=== PATIENT | male | born 1950 | race Caucasian/White ===

== ENCOUNTER 2018-05-13 10:22 | Outpatient (REF) | payer MEDICARE, BC, SELFPAY ==
[2018-05-13 13:56] LABS: ALT 33 U/L (12-78); AST 23 U/L (15-37); Alkaline Phosphatase 72 U/L (46-116); Anion Gap 11.9 mmol/L (3-11); BUN 20 mg/dL (7-18); Bilirubin, Total 0.8 mg/dL (0.2-1.0); CO2 24.1 mmol/L (21.0-32.0); Calcium 8.9 mg/dL (8.5-10.1); Chloride 105 mmol/L (98-107); Cholesterol 136 mg/dL (50-200); Glucose 113 mg/dL (70-100); HDL Cholesterol 38 mg/dL (40-60); LDL CHOLESTEROL 93 mg/dL (<100); Potassium 4.3 mmol/L (3.5-5.1); Sodium 141 mmol/L (136-145); Total Protein 6.8 g/dL (6.4-8.2); Triglyceride 64 mg/dL (30-150)
== END 2018-05-13 10:42 ==
LOC: NCHCN 10:22
PROVIDERS: PCP Nurse Practitioner; Visit Provider Nurse Practitioner
DX: E11.9 Type 2 diabetes mellitus without complications (principal); E78.5 Hyperlipidemia, unspecified
CPT/HCPCS: 80053; 80061; 83721

== ENCOUNTER 2018-11-10 13:26 | Outpatient (REF) | payer MEDICARE, BC, SELFPAY ==
[2018-11-10 14:43] LABS: Microalb ug/mg Crea 14.6 ug/mg Cr
[2018-11-12 09:38] LABS: PSA, Screening 0.2 ng/ml (0-4.5)
== END 2018-11-10 13:46 ==
LOC: NCHCN 13:26
PROVIDERS: PCP Nurse Practitioner; Visit Provider Nurse Practitioner
DX: Z12.5 Encounter for screening for malignant neoplasm of prostate (principal); E11.9 Type 2 diabetes mellitus without complications
CPT/HCPCS: 84153; 82043; 82570

== ENCOUNTER 2019-05-06 12:37 | Outpatient (REF) | payer MEDICARE, BC, SELFPAY ==
[2019-05-06 14:46] LABS: ALT 35 U/L (16-63); AST 18 U/L (15-37); Albumin 3.9 g/dL (3.4-5.0); Alkaline Phosphatase 84 U/L (46-116); Anion Gap 8.9 mmol/L (3-11); BUN 21 mg/dL (7-18); Bilirubin, Total 0.5 mg/dL (0.2-1.0); CO2 26.1 mmol/L (21.0-32.0); CREATININE 0.86 mg/dL (0.70-1.30); Calcium 8.6 mg/dL (8.5-10.1); Calculated LDL 90 mg/dL; Chloride 103 mmol/L (98-107); Cholesterol 143 mg/dL (50-200); Glucose 178 mg/dL (70-100); HDL Cholesterol 35 mg/dL (40-60); Potassium 4.1 mmol/L (3.5-5.1); Sodium 138 mmol/L (136-145); Total Protein 6.9 g/dL (6.4-8.2); Triglyceride 91 mg/dL (30-150)
== END 2019-05-06 12:57 ==
LOC: NCHCN 12:37
PROVIDERS: PCP Nurse Practitioner; Visit Provider Nurse Practitioner
DX: E11.9 Type 2 diabetes mellitus without complications (principal); E78.5 Hyperlipidemia, unspecified
CPT/HCPCS: 80053; 80061; 83036

== ENCOUNTER 2020-05-30 16:12 | Outpatient (REF) | payer MEDICARE, BC, SELFPAY ==
[2020-05-30 19:40] LABS: ALT 54 U/L (16-63); AST 24 U/L (15-37); Alkaline Phosphatase 69 U/L (46-116); Anion Gap 8.4 mmol/L (3-11); BUN 18 mg/dL (7-18); CO2 26.6 mmol/L (21.0-32.0); CREATININE 0.81 mg/dL (0.70-1.30); Calcium 8.7 mg/dL (8.5-10.1); Calculated LDL 101 mg/dL (<100); Chloride 103 mmol/L (98-107); Cholesterol 150 mg/dL (<200); Glucose 136 mg/dL (74-106); HDL Cholesterol 35 mg/dL (40-60); Potassium 4.1 mmol/L (3.5-5.1); Sodium 138 mmol/L (136-145); Total Protein 6.6 g/dL (6.4-8.2); Triglyceride 74 mg/dL (<150)
[2020-05-30 20:00] LABS: Hemoglobin A1C 7.9 % (<5.7)
== END 2020-05-30 16:32 ==
LOC: NCHCN 16:12
PROVIDERS: PCP Nurse Practitioner; Visit Provider Nurse Practitioner
DX: E11.9 Type 2 diabetes mellitus without complications (principal); E78.5 Hyperlipidemia, unspecified
CPT/HCPCS: 80053; 80061; 83036

== ENCOUNTER 2020-06-08 08:40 | Outpatient (REF) | payer MEDICARE, BC, SELFPAY ==
[2020-06-08 20:42] LABS: COMMENT (LAB VIEW ONLY) 151.85 mg/dL
== END 2020-06-08 09:00 ==
LOC: NCHCN 08:40
PROVIDERS: PCP Nurse Practitioner; Visit Provider Nurse Practitioner
DX: E11.9 Type 2 diabetes mellitus without complications (principal)
CPT/HCPCS: 82043; 82570

== ENCOUNTER → 2020-07-12 11:10 | Outpatient (BNVA) | payer MEDICARE, BC, SELFPAY | PROVIDERS: PCP Nurse Practitioner; Referring Provider Nurse Practitioner; Visit Provider Nurse Practitioner Gerontology | DX: N52.9 Male erectile dysfunction, unspecified (principal); E11.9 Type 2 diabetes mellitus without complications; Z79.4 Long term (current) use of insulin | CPT/HCPCS: 99204 ==

== ENCOUNTER → 2020-09-26 11:01 | Outpatient (BNVA) | payer MEDICARE, BC, SELFPAY | PROVIDERS: PCP Nurse Practitioner; Referring Provider Nurse Practitioner; Visit Provider Nurse Practitioner Gerontology | DX: N52.9 Male erectile dysfunction, unspecified (principal) | CPT/HCPCS: 99213 ==

== ENCOUNTER 2020-12-06 10:44 | Outpatient (REF) | payer MEDICARE, BC, SELFPAY ==
[2020-12-06 16:02] LABS: Anion Gap 11.7 mmol/L (3-11); BUN 19 mg/dL (7-18); CO2 27.3 mmol/L (21.0-32.0); CREATININE 0.9 mg/dL (0.70-1.30); Calcium 9.2 mg/dL (8.5-10.1); Chloride 103 mmol/L (98-107); Glucose 137 mg/dL (74-106); Potassium 4.6 mmol/L (3.5-5.1); Sodium 142 mmol/L (136-145)
[2020-12-06 22:00] LABS: PSA, Screening 0.3 ng/mL (0.0-6.5)
== END 2020-12-06 10:45 | disposition home or self-care (01) ==
LOC: NCHCN 10:44
PROVIDERS: PCP Nurse Practitioner; Visit Provider Nurse Practitioner Family
DX: E11.9 Type 2 diabetes mellitus without complications (principal); Z12.5 Encounter for screening for malignant neoplasm of prostate
CPT/HCPCS: 80048; 84153

== ENCOUNTER → 2020-12-26 10:36 | Outpatient (BNVA) | payer MEDICARE, BC, SELFPAY | PROVIDERS: PCP Nurse Practitioner; Referring Provider Nurse Practitioner; Visit Provider Surgery | DX: K64.5 Perianal venous thrombosis (principal) | CPT/HCPCS: 46320; 99203; 99214 ==

== ENCOUNTER 2020-12-26 12:03 | Outpatient (REF) | payer MEDICARE, BC, SELFPAY ==
--- NOTE | 2020-12-26 11:15 | HEM_PTH ---
PATIENT: Wilber Ovalles LOC: [facility] U#:[id number] AGE/SX: 70/M ROOM: RE12/26/[address]: Manisha Rosales : 1950 BED: DIS: 12/26/2020 SPEC #: [id number] RECD: 12/26/20 12:48 STATUS: RYAN REQ #: [id number] KARLA: 12/26/20 11:[address]: Manisha Rosales DEPT: Surgical Specimen RECD BY: Yuki Kemp ENTERED: 12/26/20 12:50 SP TYPE: Hem OTHR DR: Domenica Atkins Tissues: 1 - HEMORRHOIDS Procedures: GROSS AND MICRO LEVEL 4 Comments: [id number]
--- OUTSIDE RECORDS SUMMARY | 2020-12-26 12:11 | XMS_ITS ---
:1950 Author Care Team Providers Name Role Phone DR. THIAGO DUTTA Primary Care Provider [phone] DR. THIAGO DUTTA Referring Provider [phone] THIAGO DUTTA Primary Care Provider [phone] Allergies Code Code System Name Reaction Severity Status Onset NKDA ? Medications Name Status Start Date Stop Date ? ? Amaryl 4 mg tablet Completed ? 03/25/2017 Take 1 tablet every day by oral route. aspirin 81 mg tablet,delayed release Active ? Not available Take 1 tablet every day by oral route. Emergen-C Active ? Not available with melatonin 7.8g packet- one packet at bedtime Levemir FlexTouch U-100 Insulin 100 unit/mL (3 mL) subcutaneous pen Active ? Not available Inject by subcutaneous route. metformin 1,000 mg tablet Active ? Not av ailable Take 1 tablet twice a day by oral route with meals. multivitamin Active ? Not available one daily omega 3 350 mg-dha 235 mg-epa 90 mg-fish oil 597 mg capsule,pablo y rel Active ? Not available Take 2 capsules every day by oral route. OneTouch UltraMini kit Active ? Not avail able potassium citrate ER 10 mEq (1,080 mg) tablet,extended release A ctive ? Not available Take 1 tablet 3 times a day by oral route. pravastatin 20 mg tablet Active ? Not tejas ilable Take 1 tablet every day by oral route. Probiotic Active ? Not available Stool Softener 100 mg tablet Completed ? Take 1 tablet every day by oral route. Problems Name Status Onset Date Source ? Type 2 Diabetes Mellitus Active 06/25/2016 ? Procedures Date Name Performed by ? ? Tonsillectomy Information not avai lable ? Hernia Repair Information not avai lable Notes: colonoscopy Results Lab Results None recorded. Past Encounters None recorded. Social History Tobacco Smoking Status Never Smoker Notes: 03/24/19 Vaccine List None recorded. Plan of Care Reminders Provider Appointments None ? ? recorded. Lab None ? ? recorded. Referral None ? ? recorded. Procedures None ? ? recorded. Surgeries None ? ? recorded. Imaging None ? ? recorded. Vitals 03/24/2019 12:30PM Foot Care Height Weight BMI Blood Pressure 177.8 cm 114.31 kg 36.2 kg/m2 124/70 mm[Hg] 12/23/2018 12:30PM Foot Care Height Weight BMI Blood Pressure 177.8 cm 114.31 kg 36.2 kg/m2 124/68 mm[Hg] 09/24/2018 01:00PM Foot Care Height Weight BMI Blood Pressure 177.8 cm 114.31 kg 36.2 kg/m2 124/62 mm[Hg] 06/23/2018 01:30PM Foot Care Height Weight BMI Blood Pressure 177.8 cm 114.31 kg 36.2 kg/m2 136/58 mm[Hg] 03/25/2018 01:00PM Foot Care Height Weight BMI Blood Pressure 177.8 cm 114.31 kg 36.2 kg/m2 133/64 mm[Hg] 12/24/2017 01:00PM Foot Care Height Weight BMI Blood Pressure 177.8 cm 114.31 kg 36.2 kg/m2 116/64 mm[Hg] 09/25/2017 01:00PM Foot Care Weight Blood Pressure 114.31 kg 120/70 mm[Hg] 06/25/2017 01:30PM Foot Care Weight Blood Pressure 114.31 kg 124/62 mm[Hg] 03/25/2017 01:30PM Foot Care Weight Blood Pressure 114.31 kg 128/64 mm[Hg] 12/24/2016 01:15PM Foot Care Weight Blood Pressure 114.31 kg 108/68 mm[Hg] 09/26/2016 01:00PM Foot Care Weight Blood Pressure 114.31 kg 126/56 mm[Hg] 06/26/2016 01:00PM Foot Care Weight Blood Pressure 114.31 kg 124/72 mm[Hg]
== END 2020-12-26 12:04 | disposition home or self-care (01) ==
LOC: LBN 12:03
PROVIDERS: PCP Nurse Practitioner Family; Visit Provider Surgery
DX: K64.5 Perianal venous thrombosis (principal)
CPT/HCPCS: 88305; 88304

== ENCOUNTER → 2020-12-28 13:59 | Outpatient (BNVA) | payer MEDICARE, BC, SELFPAY | PROVIDERS: PCP Nurse Practitioner Family; Referring Provider Nurse Practitioner; Visit Provider Nurse Practitioner Gerontology | DX: N52.9 Male erectile dysfunction, unspecified (principal) | CPT/HCPCS: 99441 ==

== ENCOUNTER → 2021-01-02 13:48 | Outpatient (BNVA) | payer MEDICARE, BC, SELFPAY | PROVIDERS: PCP Nurse Practitioner Family; Referring Provider Nurse Practitioner Family; Visit Provider Surgery | DX: Z48.815 Encounter for surgical aftercare following surgery on the digestive system (principal) | CPT/HCPCS: 99212 ==

== ENCOUNTER 2021-05-01 12:09 | Outpatient (REF) | payer MEDICARE, BC, SELFPAY ==
[2021-05-01 20:29] LABS: ALT 44 U/L (16-63); AST 19 U/L (15-37); Calculated LDL 101 mg/dL (<100); Cholesterol 152 mg/dL (<200); HDL Cholesterol 40 mg/dL (40-60); Triglyceride 57 mg/dL (<150)
[2021-05-01 20:43] LABS: Hemoglobin A1C 7.4 % (<5.7)
[2021-05-01 20:57] LABS: Creatine Kinase 116 U/L (39-308)
== END 2021-05-01 12:10 | disposition home or self-care (01) ==
LOC: NCHCN 12:09
PROVIDERS: PCP Nurse Practitioner Family; Visit Provider Nurse Practitioner Family
DX: E78.5 Hyperlipidemia, unspecified (principal); E11.9 Type 2 diabetes mellitus without complications
CPT/HCPCS: 80061; 82550; 83036; 84450; 84460

== ENCOUNTER 2021-10-30 14:27 | Outpatient (REF) | payer MEDICARE, BC, SELFPAY ==
[2021-10-30 20:21] LABS: Hemoglobin A1C 7.6 % (<5.7)
== END 2021-10-30 14:28 | disposition home or self-care (01) ==
LOC: NCHCN 14:27
PROVIDERS: PCP Nurse Practitioner Family; Visit Provider Nurse Practitioner Family
DX: E11.9 Type 2 diabetes mellitus without complications (principal)
CPT/HCPCS: 83036

== ENCOUNTER → 2021-11-02 09:40 | Outpatient (BNVA) | payer MEDICARE, BC, SELFPAY | PROVIDERS: PCP Nurse Practitioner Family; Referring Provider Nurse Practitioner Family; Visit Provider Nurse Practitioner Gerontology | DX: R35.1 Nocturia (principal); N52.9 Male erectile dysfunction, unspecified; E11.9 Type 2 diabetes mellitus without complications | CPT/HCPCS: 99214 ==

== ENCOUNTER 2021-11-20 17:02 | Emergency (ER) | payer MEDICARE, BC, SELFPAY ==
[2021-11-20] VITALS (38 sets, daily range): BP systolic 104–150; BP diastolic 62–95; PULSE 76–146; RESP 13–28; TEMP 36.7; O2SAT 94–98
--- NOTE | 2021-11-20 17:00 | RT.EKG_ITS ---
APPROVED REPORT Exam: Resting ECG Reason for Exam: high heart rate Patient Location: E HR:144 bpm ECG Measurements Heart Rate 144 AXIS TN 109 P 0 QRSd 85 QRS -50 QT 293 T 22 QTc 454 Conclusion Sinus tachycardia...rate> 99 Inferior infarct, old...Q >35mS, II III aVF
--- NOTE | 2021-11-20 17:30 | ED.GENADUL_ITS ---
Discharge Plan Disposition Patient Disposition: HOME Condition: Stable Discharge Details Clinical Impression: Atrial fibrillation and flutter Primary Care Provider: Domenica Atkins ED Provider: Evan Guzman Home Meds and New Rx's Prescriptions: New Eliquis 5 mg tablet 5 mg PO BID 30 Days Qty: 60 0RF metoprolol succinate 25 mg capsule,sprinkle,ER 24hr 25 mg PO DAILY Qty: 30 0RF Continued clotrimazole-betamethasone 1-0.05 % cream 1 applic topical BID PRN0RF melatonin 10 mg capsule 20 mg PO HS PRN0RF simethicone [Gas Relief (simethicone)] 80 mg tablet,chewable 80 mg PO BID-QID PRN0RF Adult 50 Plus Probiotic 4 billion cell capsule 4,000 mmu cells PO DAILY 0RF Rx Instructions: administer with a meal glimepiride 4 mg tablet 4 mg PO BID 0RF metformin 1,000 MG tablet 1,000 mg PO BID 0RF pen needles 0RF omeprazole 20 mg capsule,delayed release(DR/EC) 20 mg PO BID 0RF pravastatin 20 mg tablet 20 mg PO BID 0RF aspirin [Aspir-81] 81 MG tablet,delayed release (DR/EC) 81 mg DAILY 0RF omega-3 fatty acids-fish oil 1 EACH capsule 1,000 mg PO BID 0RF Multi Vitamin W Minerals 1 tab BID 0RF potassium citrate 10 mEq (1,080 mg) tablet extended release 10 meq PO BID 0RF terbinafine HCl 1 % Cream 1 applic TOPICAL BID 0RF psyllium Packet 1 packet PO DAILY 0RF Held ibuprofen 600 mg tablet 600 mg PO Q8H PRN0RF Hold Instructions: until seen by regular doctor No Action sildenafil [Viagra] 50 mg tablet 50 mg PO DAILY PRN (Reason: sexual activity) Qty: 10 0RF Rx Instructions: administer 30 minutes to 4 hours before activity Levemir FlexTouch U-100 Insuln 100 unit/mL (3 mL) insulin pen 50 unit subcut QHS 0RF tamsulosin [Flomax] 0.4 mg capsule 0.4 mg PO .at dinner time Qty: 90 1RF Discharge Instructions Instructions: A-fib (Atrial Fibrillation) (ED) Additional Instructions: Your work-up today revealed atrial fibrillation with variable rates of conduction. As we discussed, I recommended and offered admission to the hospital which you have declined. The risks of this to include disability or . Please begin metoprolol and Eliquis. Our care management team will make referrals for you to cardiology as well as your regular doctor for recheck. Return to the emergency department he develop chest pain, lightheadedness, or any other acute concerns. Medical Decision Making This is a 71-year-old male with presents from referral in clinic. Patient had been placed on Flomax last which he took that day and again Saturday. On night he noted a pulse of 140 at home and again persisted yesterday and through the weekend. States she did not feel palpitations or chest pain. Is not been short of breath or been lightheaded. He does feel some ongoing moderate fatigue which she states is new. No other recent medication changes. Patient arrives here in sinus tachycardic proxy 140. He was normotensive and is in no distress. Differential diagnosis is broad and is not limited to dehydration, electrolyte abnormality, silent VA, thyroid abnormality. Patient IV access established, screening laboratories, EKG obtained, patient given fluid bolus and magnesium. Laboratories note a white count of 8, hematocrit 44, platelets 218. Sodium 141, potassium 3.8, BUN elevated 20 creatinine 1.1. Liver functions unremarkable, TSH 2.9, troponin negative. Following 1 L fluid and 1 g of magnesium, 5 mg of metoprolol the patient's heart rate decreased but then became irregular at times particularly with movement. On a repeat EKG, patient has a flutter with 3-1 AV block and ventricular rate of 89. Likely he has had undiagnosed, unrecognized atrial fibrillation, and his heart rate in the 140s represented 2-1 AV block. I discussed with the patient and recommended admission to the hospital which he declines. He demonstrates to me decision-making capacity and we discussed his risk including permanent disability or . I discussed with him that I would prefer to start him on a low-dose beta-franklin and Eliquis. He agrees to this recommendation and will follow up with his primary care physician. Please note that the patient's repeat EKG at 20 00 hours did not upload to the medical record electronically. It will be scanned into the patient's chart. It reveals 3-1 AV block with underlying atrial fibrillation and a ventricular rate of 89. HPI General Mode of arrival: ambulatory . Date/Time Provider Initiated Documentation: 11/20/21 17:19 . Limitations to Documentation: no limitations . Information obtained by: patient . History of Present Illness 71 year old M presents to the emergency department with the chief complaint of Tachycardia and general fatigue, described as moderate, Quality is described as constant, Patient started experiencing this unknown and it has been constant. improves with No relieving factors improve symptom(s), No exacerbating factors reported . Patient notes weakness; denies chest pain, shortness of breath and syncope. Patient did receive the following treatments prior to arrival, none Related Data Home Medications Medication Instructions Recorded Confirmed [place] 07/11/15 12/28/20 metformin 1,000 mg tablet 1,000 mg PO BID tab-cap 07/11/15 11/20/21 Multi Vitamin W Minerals 1 tab BID 08/03/15 11/20/21 aspirin 81 mg tablet,delayed 81 mg DAILY 08/03/15 11/20/21 release (Aspir-) omega-3 fatty acids-fish oil 300 1,000 mg PO BID 08/03/15 11/20/21 mg-1,000 mg capsule clotrimazole-betamethasone 1 1 applic TOPICAL BID PRN 07/12/20 11/20/21 %-0.05 % topical cream potassium citrate 10 mEq (1,080 10 meq PO BID tab 07/12/20 11/20/21 mg) tablet,extended release sildenafil 50 mg tablet (Viagra) 50 mg PO DAILY PRN #10 tab 09/26/20 11/20/21 ibuprofen 600 mg tablet 600 mg PO Q8H PRN 12/22/20 11/20/21 omeprazole 20 mg capsule,delayed 20 mg PO BID cap 12/22/20 11/20/21 release lactobacillus combination no.9 4 4,000 mmu cells PO DAILY 12/26/20 11/20/21 billion cell capsule (Adult 50 Plus Probiotic) melatonin 10 mg capsule 20 mg PO HS PRN cap 12/26/20 11/20/21 simethicone 80 mg chewable tablet 80 mg PO BID-QID PRN 12/26/20 11/20/21 (Gas Relief (simethicone)) glimepiride 4 mg tablet 4 mg PO BID tab 11/02/21 11/20/21 insulin detemir U-100 100 unit/mL 50 unit SUBCUT QHS ml 11/02/21 11/20/21 (3 mL) subcutaneous pen (Levemir FlexTouch U-100 Insulin) pravastatin 20 mg tablet 20 mg PO BID tab-cap 11/02/21 11/20/21 tamsulosin 0.4 mg capsule (Flomax) 0.4 mg PO .at dinner time #90 cap 11/02/21 11/20/21 apixaban 5 mg tablet (Eliquis) 5 mg PO BID 30 Days #60 tab 11/20/21 metoprolol succinate 25 mg capsule 25 mg PO DAILY #30 cap 11/20/21 sprinkle, ext. release 24 hr psyllium 1 packet PO DAILY 11/20/21 11/20/21 terbinafine HCl 1 % topical cream 1 applic TOPICAL BID 11/20/21 11/20/21 Previous Rx's Medication Instructions Recorded sildenafil 50 mg tablet (Viagra) 50 mg PO DAILY PRN #10 tab 09/26/20 tamsulosin 0.4 mg capsule (Flomax) 0.4 mg PO .at dinner time #90 cap 11/02/21 apixaban 5 mg tablet (Eliquis) 5 mg PO BID 30 Days #60 tab 11/20/21 metoprolol succinate 25 mg capsule 25 mg PO DAILY #30 cap 11/20/21 sprinkle, ext. release 24 hr Allergies Allergy/AdvReac Type Severity Reaction Status Date / Time No Known Allergies Allergy Unverified 11/02/21 09:44 General Stated Complaint: Palpitatns DEDE: 3 Review of Systems Narrative: States this began after first dose of Flomax which he took x2 days. No syncope, no chest pain, no recent illness. Denies shortness of breath. PFSH All Active Problems (Updated 11/20/21 @ 20:11 by Evan Guzman MD) Atrial fibrillation and flutter (Acute) Lower urinary tract symptoms (LUTS) (Acute) Erectile dysfunction (Acute) Medical History Diabetes mellitus GERD (gastroesophageal reflux disease) Hemorrhoids Hyperlipidemia Nocturia Onychomycosis JEEVAN (obstructive sleep apnea) Strabismus Social History Smoking/Tobacco Use Status: Never Smoking risk assessment performed?: Yes Alcohol Intake: never Drug use: Never Substance use type: does not use Do you feel safe at home: Yes Do you feel safe in your relationship?: Yes Exam Narrative Exam Narrative: GEN: awake, alert, oriented 3. Pleasant, well groomed, interactive. HEAD: Normocephalic, atraumatic ENT: Mucous membranes moist, oropharynx unremarkable, External ear exam unrem arkable EYES: PERRL, EOMI NECK: Full ROM, no ROMAN, no menigismus CHEST/RESP: Nontender, clear to auscultation bilateral, no wheeze/rhonchi/rales CARDIOVASCULAR: Regular and tachycardic, no murmur, rub christy. 2+ Rad pulse bilateral ABDOMEN: Soft, nontender, no mass. +Bowel sounds EXT: Full ROM, no edema, no rash Neuro: Grossly normal neurologic exam, conversant, interactive. Psych: Speech fluent, thoughts congruent, affect normal Course Vital Signs Vital signs: Vital Signs Temperature 36.7 C 11/20/21 17:23 Pulse 145 H 11/20/21 17:23 Respiratory Rate 14 11/20/21 17:23 Blood Pressure 128/80 11/20/21 17:23 Pulse Oximetry 98 11/20/21 17:23 Temperature 36.7 C 11/20/21 17:23 Temperature Source Oral 11/20/21 17:23 Pulse 145 H 11/20/21 17:23 Respiratory Rate 14 11/20/21 17:23 Blood Pressure 128/80 11/20/21 17:23 Blood Pressure Position Sitting 11/20/21 17:23 Pulse Oximetry 98 11/20/21 17:23 Oxygen Delivery Method Room Air 11/20/21 17:23 Oxygen Flow Rate 0 11/20/21 17:23 Pain Level 0 11/20/21 17:23
[2021-11-20] MEDS: Metoprolol 5 MG/5 ML VIAL IVP (18:11)
[2021-11-20] MEDS: MAGNESIUM SULFATE 1 GM/100 ML BAG IVPB (18:11)
[2021-11-20] MEDS: Normal Saline 1,000 ML 1000 ML IV (18:11)
[2021-11-20 18:18] LABS: Abs Immature Grans 0.03 10^3/uL (0.0-0.06); Absolute Basophil Count 0.05 10^3/uL (0.0-0.2); Absolute Eosinophil Count 0.17 10^3/uL (0.0-0.7); Absolute Lymphocyte Count 2.26 10^3/uL (1.2-3.4); Absolute Monocyte Count 0.88 10^3/uL (0.1-0.8); Absolute Neutrophil Count 4.88 10^3/uL (1.2-6.7); Basophils % 0.6; Eosinophils % 2.1; HCT 44.2 % (40.0-50.0); HGB 14.7 g/dL (13.5-17.5); Immature Grans % 0.4; Lymphocytes % 27.3; MCHC 33.3 % (32.0-36.0); MCV 96.3 fL (80-95); MPV 10.5 fL (8.0-11.0); Monocytes % 10.6; Nucleated RBC 0 %; Platelet Count 215 10^3/uL (130-400); RBC 4.59 10^6/uL (4.36-5.78); RDW-SD 46.5 fL; WBC 8.27 10^3/uL (4.4-10.8)
[2021-11-20 18:41] LABS: ALT 31 U/L (16-63); AST 14 U/L (15-37); Albumin 3.6 g/dL (3.4-5.0); Alkaline Phosphatase 69 U/L (46-116); Anion Gap 8.4 mmol/L (3-11); BUN 26 mg/dL (7-18); Bilirubin, Total 0.6 mg/dL (0.2-1.0); CO2 25.6 mmol/L (21.0-32.0); CREATININE 1.1 mg/dL (0.70-1.30); Calcium 8.6 mg/dL (8.5-10.1); Chloride 107 mmol/L (98-107); Glucose 208 mg/dL (74-106); Magnesium 1.8 mg/dL (1.8-2.4); Potassium 3.8 mmol/L (3.5-5.1); Sodium 141 mmol/L (136-145); TSH (W/Ref FT4) 2.91 uIU/mL (0.36-3.74); Total Protein 6.6 g/dL (6.4-8.2); Troponin I < 50 ng/L (<or=60)
--- NOTE | 2021-11-20 19:00 | DI.RAD_ITS ---
Exam(s) XR PORTABLE CHEST AP EXAM: XR PORTABLE CHEST AP CLINICAL HISTORY: tachycardia TECHNIQUE: 2D digital imaging was performed. COMPARISON: No exams were available for comparison FINDINGS: LUNGS: Suboptimally inflated. Mild streaky basilar densities, consistent with atelectasis. No conso lidation. No pleural abnormality seen. HEART: Within normal limits for projection.. The aorta mildly tortuous. BONES: Unremarkable for age.. IMPRESSION: Suboptimal pulmonary inflation. No acute pulmonary findings. DATA REPOSITORY: RADIATION DOSE DELIVERED:
[2021-11-20] MEDS: Apixaban 5 MG TAB PO (20:22)
[2021-11-20] MEDS: Metoprolol CR 25 MG TABCR PO (20:34)
--- NOTE | 2021-11-20 20:54 | DI.VRAD_ITS ---
PROCEDURE INFORMATION: Exam: XR Chest Exam date and time: 11/20/2021 7:25 PM Age: 71 years old Clinical indication: Other: Tachycardia TECHNIQUE: Imaging protocol: XR of the chest. Views: 1 view. COMPARISON: CR ABDOMEN FLAT PLATE 04/10/2016 3:01 PM FINDINGS: Lungs: Unremarkable. No consolidation. Pleural spaces: Unremarkable. No pleural effusion. No pneumothorax. Heart/Mediastinum: Unremarkable. No cardiomegaly. Bones/joints: Unremarkable. IMPRESSION: No acute findings. Dictated and Authenticated by: Meron Mancuso MD. Ordering:SCARLETT Gordon MD
--- NOTE | 2021-11-21 10:53 | CMACTNOTE_ITS ---
- If Service Date Differs Date of service: 11/21/21 Time of Service: 10:53 Care Management Activity Note Linden is seen in the ED for new Atrial Fibrillation and flutter. At the request of ED provider, CM coordinates a referral to [facility] – [place] [place] Cardiovascular Medicine (Cardiac Electrophysiology) to assist Linden in obtaining an urgent follow up appointment.
== END 2021-11-20 20:50 | disposition home or self-care (01) ==
PROVIDERS: Emergency Provider Emergency Medicine; PCP Nurse Practitioner Family
DX: I48.91 Unspecified atrial fibrillation (principal); I48.92 Unspecified atrial flutter; R00.0 Tachycardia, unspecified
CPT/HCPCS: 36415; 80053; 93005; 96361; 96365; 96375; 99284; 71045; 83735; 84443; 84484; 85025; 93010; J3475

== ENCOUNTER 2021-11-20 18:41 | Outpatient (REF) | payer MEDICARE, BC, SELFPAY ==
[2021-11-20 19:36] LABS: HCT 44.9 % (40.0-50.0); HGB 14.7 g/dL (13.5-17.5); MCH 31.7 pg (27.0-33.0); MCHC 32.7 % (32.0-36.0); MPV 11.7 fL (8.0-11.0); Platelet Count 220 10^3/uL (130-400); RBC 4.63 10^6/uL (4.36-5.78); RDW-SD 46.2 fL; WBC 7.61 10^3/uL (4.4-10.8)
[2021-11-20 19:58] LABS: Anion Gap 8.3 mmol/L (3-11); BUN 26 mg/dL (7-18); CO2 25.7 mmol/L (21.0-32.0); Calcium 8.6 mg/dL (8.5-10.1); Chloride 106 mmol/L (98-107); FREE T4 0.84 ng/dL (0.76-1.46); Glucose 255 mg/dL (74-106); Potassium 4.1 mmol/L (3.5-5.1); Sodium 140 mmol/L (136-145); TSH 2.34 uIU/mL (0.36-3.74)
== END 2021-11-20 18:42 | disposition home or self-care (01) ==
LOC: NCHCN 18:41
PROVIDERS: PCP Nurse Practitioner Family; Visit Provider Nurse Practitioner Family
DX: R00.0 Tachycardia, unspecified (principal)
CPT/HCPCS: 80048; 85027; 84439; 84443

== ENCOUNTER 2021-11-27 15:03 | Outpatient (REF) | payer MEDICARE, BC, SELFPAY ==
[2021-11-27 20:16] LABS: NT-proBNP 311 pg/mL (<300)
== END 2021-11-27 15:04 | disposition home or self-care (01) ==
LOC: NCHCN 15:03
PROVIDERS: PCP Nurse Practitioner Family; Visit Provider Nurse Practitioner Family
DX: R06.02 Shortness of breath (principal); I48.91 Unspecified atrial fibrillation
CPT/HCPCS: 83880

== ENCOUNTER 2021-11-29 02:29 | Outpatient (CLI) | payer MEDICARE, BC, SELFPAY ==
--- NOTE | 2021-11-29 | DI.RAD_ITS ---
Exam(s) XR CHEST 2V PA LATERAL EXAM: XR CHEST 2V PA LATERAL CLINICAL HISTORY: ABNL CXR R91.8 TECHNIQUE: COMPARISON: CT ABD/PELVIS WO W CONTRAST from 03/07/2015 CR,XR XR PORTABLE CHEST AP from 11/20/2021 FINDINGS: The heart is at the upper limits of normal in size. There is some pleural blunting posteriorly and t here is some prominence of the inner lobar fissures raising the possibility of small bilateral pleura l effusions. There is prominence of interstitial markings in the lung bases with some possible Kerle y B lines noted. Findings may represent early interstitial edema, please correlate regarding the pos sibility of mild CHF. Upper lung zones appear clear. No mediastinal contour abnormality. IMPRESSION: The appearance raises the possibility of early CHF. Please correlate clinically. Alternatively, the findings may represent chronic pulmonary interstitial changes. RADIATION DOSE DELIVERED: Total DLP
== END 2021-11-29 02:49 ==
PROVIDERS: PCP Nurse Practitioner Family; Visit Provider Nurse Practitioner Family
DX: R91.8 Other nonspecific abnormal finding of lung field (principal)
CPT/HCPCS: 71046

== ENCOUNTER 2021-12-06 03:09 | Outpatient (CLI) | payer MEDICARE, BC, SELFPAY ==
--- NOTE | 2021-12-28 15:41 | CER_ITS ---
Date of service: 12/28/21 Time of Service: 15:42 Cardiac Event Recorder Referring Provider:: Juany Dietrich Indications:: Atrial fibrillation Cardiac Event Note: This is a 14-day lunchroom monitor, ordered for atrial fibrillation Overall predominant rhythm throughout the recording was atrial fibrillation, which was present at least 52% of the time. Sinus rhythm was present 48% of the time. Episodes labeled supraventricular tachycardia were likely paroxysmal atrial fibrillation, in which case the burden of atrial fibrillation was higher When in atrial fibrillation average heart rate was 112 When in sinus rhythm, minimum heart rate was 56, maximum 117 Overall heart rate through the recording averaged 97 There were rare ventricular ectopic beats, rare couplets, several brief runs of nonsustained ventricular tachycardia the longest of which was 4 beats in duration. Majority patient's symptoms corresponded to atrial fibrillation
== END 2021-12-06 03:10 | disposition home or self-care (01) ==
PROVIDERS: PCP Nurse Practitioner Family; Visit Provider Nurse Practitioner Family
DX: I49.1 Atrial premature depolarization (principal)
CPT/HCPCS: 93246

== ENCOUNTER → 2021-12-12 02:26 | Outpatient (CLI) | payer MEDICARE, BC, SELFPAY ==
--- NOTE | 2021-12-12 15:00 | DI.US_ITS ---
APPROVED REPORT EXAM: Comprehensive 2D, Doppler, and color-flow Echocardiogram Patient Location: Out-Patient [place] Worker: Cielo Luong RDCS (AE) Indications: A Fib, SOB Other Information Study Quality: Adequate Conclusion Normal left ventricular wall thickness and chamber size. Estimated ejection fraction is 55 to 60%. Wall motion is normal Normal right ventricular size and systolic function The left atrium is moderately dilated. The right atrium is mildly dilated Trileaflet aortic valve without stenosis or regurgitation Normal mitral valve with moderate regurgitation Normal tricuspid valve with mild regurgitation. Estimated right ventricular systolic pressure is 33 mmHg Mildly dilated ascending aorta measuring 3.92 cm Wall motion Left Ventricle The left ventricle is normal size. The left ventricular systolic function is normal. The left ventric ular ejection fraction is within the normal range. There is normal left ventricular wall thickness. T here is normal LV segmental wall motion. There is no ventricular septal defect visualized. LVEF is 58 %. Right Ventricle The right ventricle is normal size. The right ventricular systolic function is normal. The RVSP is 33 .0 mmHg. Atria Left atrium is moderately dilated. Right atrium is mildly dilated. The interatrial septum is intact w ith no evidence for an atrial septal defect. Aortic Valve The aortic valve is normal in structure. Aortic valve is trileaflet. There is no aortic valvular sten osis. Trace aortic regurgitation. Mitral Valve The mitral valve is normal in structure. No evidence of mitral valve stenosis. Moderate mitral regurg itation. Tricuspid Valve The tricuspid valve is normal in structure. There is no tricuspid valve stenosis. Mild tricuspid regu rgitation. Pulmonic Valve The pulmonary valve is normal in structure. There is no pulmonic valvular stenosis. Trace pulmonic re gurgitation. Great Vessels The aortic root is normal in size. The ascending aorta is mildly dilated.3.92 cm Aortic arch is yoselin l in caliber. IVC is normal in size and collapses >50% with inspiration. Pericardium There is no pericardial effusion. 2D Dimensions IVSD d PLAX 0.95 cm M: 0.6-1.2 LV Vol A2C d MOD 168.9 mL LVPW d PLAX 0.99 cm M: 0.6 - 1.2 LV Vol A4C d MOD 157.1 mL LVID d PLAX 5.64 cm M: 4.2 - 5.8 LA vol/ BSA A2C s A-L 42.6 mL/m2 LVDs 3.80 cm M: 2.5 - 4.0 LA vol/ BSA A4C s A-L 61.2 mL/m2 Ao Root d 3.29 cm M: 3.1 - 3.7 LA Vol/ BSA Biplane s A-L 55.9 mL/m2 RA Area A4C 19.76 cm2 LA Area A4C s MOD 35.00 cm2 RA Vol/ BSA A4C s A-L 29.6 mL/m2 LA Area A2C s MOD 26.65 cm2 Ao Asc Diam d 3.92 cm M: 2.6 - 3.4 LV EF A4C MOD 57.7 % LV EF Teichholz 59.2 % LV EF A2C MOD 58.6 % LVEF (Mendoza's) 56.19 % M: 52 - 72 LV EF Biplane MOD 56.2 % LV Volume 117.51 mL M: 62 - 150 SV 91.39 mL LV Volume Index 52.45 mL/m2 M: 34 - 74 SV Index 40.67 mL/m2 LV Vol Biplane MOD 162.7 mL FS 31.75 % M-Mode TAPSE 2.91 cm (M/F) >1.7 LV Diastology MV E' medial 0.109 (>0.07 m/s) E/A Ratio 2.0 LV E/e MED 5.45 (<14) MV E Vmax 0.59 (0.4-1.3 m/s) MV E' lateral 0.101 (>0.1 m/s) MV A Vmax 0.30 (0.4-1.3 m/s) LV E/e LAT 5.80 (<14) MV E/A Ratio 1.82 MV E/E' medial 5.45 MV E/E' lateral 5.85 Aortic Valve LVOT Area 3.54 cm2 AoV Area Vmax 3.00 cm2 LVOT Vmax 0.93 m/s AoV Area/ BSA (Vmax) 1.33 cm2/m2 LVOT Mean Bubba. 0.62 m/s KATRINA Mean Bubba. 3.00 cm2 LVOT Peak Grad 3.4 mmHg KATRINA Mean Bubba. Index 1.34 cm2/m2 LVOT Mean Grad 1.8 mmHg LVOT VTI 0.185 m LVOT Diam s 2.10 cm AoV Vmax 1.10 m/s Velocity Ratio 0.84 AoV Mean Bubba. 0.73 m/s AoV Peak Grad 4.8 mmHg LVOT SV 65.66 mL AoV Mean Grad 2.5 mmHg AoV VTI 0.220 m AoV Area VTI 2.98 cm2 AoV Area/ BSA (VTI) 1.33 cm/m2 Mitral Valve MV DT 232 (160-240 msec) MR Vmax 4.60 m/s MV PHT 67 msec MR VTI 1.363 m MV Area PHT 3.27 cm2 MR Peak Grad 84.5 mmHg MV VTI 0.224 m MR Mean Grad 63.2 mmHg MV VTI Annulus 0.250 m MR PISA Radius 0.62 cm MV Area VTI 3.31 (4.0-6.0 cm2) MR EROA 0.19 cm2 MR Aliasing Velocity 0.35 m/s MR PISA 2.45 cm2 Pulmonary Valve PV Vmax 0.71 (0.5-1.5 m/s) RVOT Peak Gr. 0.93 mmHg PV Peak Grad 2.0 mmHg RVOT Mean Gr. 0.50 mmHg PV Mean Grad 1.2 mmHg RVOT VTI 0.094 m PV VTI 0.143 m RVOT Vmax 0.48 m/s Tricuspid Valve TR Peak Grad 29.9 mmHg TR Vmax 2.74 m/s RA Pressure 3.00 mmHg RVSP (TR) 33.0 mmHg
== END ==
PROVIDERS: PCP Nurse Practitioner Family; Visit Provider Nurse Practitioner Family
DX: I48.91 Unspecified atrial fibrillation (principal); R06.02 Shortness of breath
CPT/HCPCS: 93306

== ENCOUNTER 2021-12-19 08:17 | Outpatient (CLI) | payer MEDICARE, BC, SELFPAY ==
--- NOTE | 2021-12-19 08:15 | RT.EKG_ITS ---
APPROVED REPORT Exam: Resting ECG Reason for Exam: afib Patient Location: O HR:129 bpm ECG Measurements Heart Rate 129 AXIS IN [id number] P [id number] QRSd 101 QRS 6 QT 328 T 15 QTc 481 Conclusion Atrial fibrillation...V-rate 82-170, irreg A-activity Low voltage Baseline wander in lead(s) V3,V4,V5,V6
== END 2021-12-19 08:18 | disposition home or self-care (01) ==
LOC: DI.CARD 08:18
PROVIDERS: PCP Nurse Practitioner Family; Visit Provider Internal Medicine Cardiovascular Disease
DX: I48.91 Unspecified atrial fibrillation (principal); I48.92 Unspecified atrial flutter
CPT/HCPCS: 93010

== ENCOUNTER → 2021-12-19 09:29 | Outpatient (BNVA) | payer MEDICARE, BC, SELFPAY | PROVIDERS: PCP Nurse Practitioner Family; Referring Provider Nurse Practitioner Family; Visit Provider Internal Medicine Cardiovascular Disease | DX: G47.33 Obstructive sleep apnea (adult) (pediatric) (principal); E11.9 Type 2 diabetes mellitus without complications; I48.91 Unspecified atrial fibrillation | CPT/HCPCS: 93005; 99203; 99214 ==

== ENCOUNTER 2021-12-28 15:41 | Outpatient (CLI) | payer MEDICARE, BC, SELFPAY | END 2021-12-28 15:42 | LOC: CARDO 02-08 14:47 | PROVIDERS: PCP Nurse Practitioner Family; Referring Provider Nurse Practitioner Family; Visit Provider Internal Medicine Cardiovascular Disease | DX: I49.1 Atrial premature depolarization (principal) | CPT/HCPCS: 93248 ==

== ENCOUNTER 2021-12-29 19:06 | Outpatient (REF) | payer MEDICARE, BC, SELFPAY ==
[2021-12-31 14:27] LABS: COVID-19 RT-PCR UVMMC Result Negative (Negative)
== END 2021-12-29 19:07 | disposition home or self-care (01) ==
LOC: NCHCN 19:06
PROVIDERS: PCP Nurse Practitioner Family; Visit Provider Nurse Practitioner Family
DX: Z20.822 Contact with and (suspected) exposure to COVID-19 (principal)
CPT/HCPCS: U0003

== ENCOUNTER 2022-02-02 01:53 | Outpatient (CLI) | payer MEDICARE, BC, SELFPAY ==
--- OUTSIDE RECORDS SUMMARY | 2022-02-02 01:55 | XMS_ITS ---
:1950 Author Care Team Providers Name Role Phone DR. THIAGO DUTTA Primary Care Provider [phone] DR. THIAGO DUTTA Referring Provider [phone] THIAGO DUTTA Primary Care Provider [phone] Allergies Code Code System Name Reaction Severity [...] Plan of Care Reminders Provider Appointments None recorded. ? ? Lab None recorded. ? ? Referral None recorded. ? ? Procedures None recorded. ? ? Surgeries None recorded. ? ? Imaging None recorded. ? ? Vitals 03/24/2019 12:30PM Foot Care Height Weight [...]
[2022-02-02] MEDS: Methacholine 100 MG VIAL IH (11:58)
[2022-02-02] MEDS: Albuterol HFA 18 GM 200 PUFF INH IH (11:58)
[2022-02-02] MEDS: Inhaler, Assist Device 1 EACH MC (11:58)
--- NOTE | 2022-02-02 13:27 | W.PFT ---
Date of service: 02/02/22 Time of Service: 10:30 Pulmonary Function Test Result Requesting Provider Domenica Atkins Indications: SOB Note: SPIROMETRY: There is no airflow limitation at baseline. METHACHOLINE CHALLENGE: There was no significant decrease in FEV1 with administration of methacholine. LUNG VOLUMES: Lung volumes are within normal limits. DLCO: The diffusing capacity is normal. AIRWAY RESISTANCE: The airway resistance is normal. INTERPRETATION: Normal baseline PFT's with a negative methacholine challenge test. Clinical Correlation therefore is recommended.
== END 2022-02-02 01:54 | disposition home or self-care (01) ==
LOC: RT 01:53
PROVIDERS: PCP Nurse Practitioner Family; Visit Provider Nurse Practitioner Family
DX: R06.02 Shortness of breath (principal)
CPT/HCPCS: 94060; 94070; 94726; 94729; 94010; J7674

== ENCOUNTER 2022-02-12 13:18 | Emergency (ER) | payer MEDICARE, BC, SELFPAY ==
[2022-02-12] VITALS (11 sets, daily range): BP systolic 115–158; BP diastolic 65–104; PULSE 64–125; RESP 14–19; TEMP 36.7–36.8; O2SAT 95–99
--- NOTE | 2022-02-12 14:15 | DI.RAD_ITS ---
Exam(s) XR TIB/FIB RT EXAM: XR TIB/FIB RT CLINICAL HISTORY: fall, pain. TECHNIQUE: 2D digital imaging was performed. Two views. COMPARISON: No exams were available for comparison FINDINGS: BONES: No acute fracture is present. No bony destructive lesion is seen. Visualized portion of knee a nd ankle joints show mild degenerative changes. SOFT TISSUE: Prominent swelling anterior to tibial tubercle. Edema seen in subcutaneous fat of lower leg. No foreign body. No evidence of fracture. IMPRESSION: Prominent swelling anterior to the tibial tubercle. No fracture. DATA REPOSITORY: RADIATION DOSE DELIVERED:
--- NOTE | 2022-02-12 14:15 | DI.RAD_ITS ---
Exam(s) XR ANKLE RT COMPLETE EXAM: XR ANKLE RT COMPLETE CLINICAL HISTORY: fall, swelling. TECHNIQUE: 2D digital imaging was performed. Three views. COMPARISON: No exams were available for comparison FINDINGS: BONES: No acute fracture is present. No bony destructive lesion is seen. Heel spurs. JOINTS: The ankle mortise is normally aligned. Ankle joint space is well maintained. SOFT TISSUE: Edema around the malleoli. Calcification in region of plantar fascia. Vascular calcifi cations. IMPRESSION: Soft tissue edema. Heel spurs. No acute abnormality. DATA REPOSITORY: RADIATION DOSE DELIVERED:
--- NOTE | 2022-02-12 14:15 | DI.RAD_ITS ---
Exam(s) XR KNEE RT 3V AP,LAT,BETHANY EXAM: XR KNEE RT 3V AP,LAT,EBTHANY CLINICAL HISTORY: fall pain lateral, effusion, on eliquis. TECHNIQUE: 2D digital imaging was performed. Three views. COMPARISON: No exams were available for comparison FINDINGS: BONES: No acute fracture is present. No bony destructive lesion is seen. Enthesophyte quadriceps in sertion. JOINTS: Mild periarticular spurring. The knee is normally aligned. No joint effusion is seen. SOFT TISSUE: Marked anterior soft tissue swelling. No foreign body. IMPRESSION: Prominent swelling anterior to the tibial tubercle. No evidence of fracture. DATA REPOSITORY: RADIATION DOSE DELIVERED:
[2022-02-12 14:43] LABS: Abs Immature Grans 0.05 10^3/uL (0.0-0.06); Absolute Basophil Count 0.07 10^3/uL (0.0-0.2); Absolute Eosinophil Count 0.21 10^3/uL (0.0-0.7); Absolute Neutrophil Count 7.06 10^3/uL (1.2-6.7); Basophils % 0.6; Eosinophils % 1.9; HCT 38.3 % (40.0-50.0); HGB 12.7 g/dL (13.5-17.5); Immature Grans % 0.5; Lymphocytes % 19.4; MCH 31.1 pg (27.0-33.0); MCHC 33.2 % (32.0-36.0); MCV 94 fL (80-95); MPV 11.7 fL (8.0-11.0); Monocytes % 12.5; Neutrophils % 65.1; Platelet Count 145 10^3/uL (130-400); RBC 4.08 10^6/uL (4.36-5.78); RDW-SD 44.8 fL; WBC 10.84 10^3/uL (4.4-10.8)
[2022-02-12 14:46] LABS: Absolute Monocyte Count 1.36 10^3/uL (0.1-0.8)
[2022-02-12 15:12] LABS: ALT 21 U/L (16-63); AST 16 U/L (15-37); Albumin 3.6 g/dL (3.4-5.0); Alkaline Phosphatase 69 U/L (46-116); Anion Gap 9.5 mmol/L (3-11); BUN 24 mg/dL (7-18); Bilirubin, Total 1.7 mg/dL (0.2-1.0); C-Reactive Protein 5.32 mg/dL (0.0-0.3); CO2 26.5 mmol/L (21.0-32.0); Chloride 104 mmol/L (98-107); Glucose 136 mg/dL (74-106); Potassium 3.9 mmol/L (3.5-5.1); Sodium 140 mmol/L (136-145); Total Protein 6.9 g/dL (6.4-8.2)
--- NOTE | 2022-02-12 16:13 | ED.GENADUL_ITS ---
Discharge Plan Disposition Patient Disposition: HOME Condition: Stable Discharge Details Clinical Impression: Ecchymosis, Leg injury, Chronic anticoagulation Primary Care Provider: Domenica Atkins ED Provider: Yuki Scherer Home Meds and New Rx's Prescriptions: Continued clotrimazole-betamethasone 1-0.05 % cream 1 applic topical BID PRN sildenafil [Viagra] 50 mg tablet 50 mg PO DAILY PRN (Reason: sexual activity) Qty: 10 0RF Rx Instructions: administer 30 minutes to 4 hours before activity Metamucil 3.4 gram/5.4 gram powder 1 tbsp PO DAILY Rx Instructions: mix into at least 8 oz of water or juice before administering melatonin 10 mg capsule 20 mg PO HS PRN simethicone [Gas Relief (simethicone)] 80 mg tablet,chewable 80 mg PO BID-QID PRN Adult 50 Plus Probiotic 4 billion cell capsule 4,000 mmu cells PO DAILY Rx Instructions: administer with a meal Levemir FlexTouch U-100 Insuln 100 unit/mL (3 mL) insulin pen 50 unit subcut QHS glimepiride 4 mg tablet 4 mg PO BID metformin 1,000 MG tablet 1,000 mg PO BID pen needles ibuprofen 600 mg tablet 600 mg PO Q8H PRN Hold Instructions: until seen by regular doctor omeprazole 20 mg capsule,delayed release(DR/EC) 20 mg PO BID pravastatin 20 mg tablet 20 mg PO BID aspirin [Aspir-81] 81 MG tablet,delayed release (DR/EC) 81 mg DAILY omega-3 fatty acids-fish oil 1 EACH capsule 1,000 mg PO BID Multi Vitamin W Minerals 1 tab BID potassium citrate 10 mEq (1,080 mg) tablet extended release 10 meq PO BID Eliquis 5 mg tablet 5 mg PO BID Label Comments: Take 1 tablet by mouth twice a day terbinafine HCl 1 % Cream 1 applic TOPICAL BID psyllium Packet 1 packet PO DAILY metoprolol succinate 25 mg capsule,sprinkle,ER 24hr 25 mg PO DAILY Qty: 30 0RF Discharge Instructions Additional Instructions: Give her dose of Eliquis 5 evening, elevate your leg as high as you are able to and refrain from ambulating as much as possible You have an appointment tomorrow at [facility] with your primary care doctor, please go to this appointment for reassessment Please return immediately should you develop fever, chills, dramatic change in pain You may try loosening the bandage if your pain is worsening to see if that helps I am giving you several pain pills, and these are addictive and can make you lightheaded, use caution when going from sitting to standing and only take them as needed Referrals: Domenica Atkins [Primary Care Provider] - Discharge Data Discharge Date/Time-TO BE ENTERED AT DEPARTURE: 02/12/22 16:48 Medical Decision Making Hemodynamically stable No evidence of secondary infection although CRP is elevated likely secondary to trauma No evidence of compartment syndrome No evidence of fracture on x-ray interpretation and my review Discussed the case briefly with Dr. Arce, orthopedic and his recommendation is to place compressive dressing although this was attempted and patient was unable to tolerate dressing placement I did supply him with several doses of pain medication He is instructed to ambulate his legs for the next several days He will skip his dose of Eliquis this evening, we considered risk-benefit during And reviewed them with patient He is alert, oriented, of decisional capacity No clear indication for admission at this time There is no evidence of compartment syndrome or fracture He will elevate and refrain from ambulation is much as possible I did consider DVT, however patient is appropriately anticoagulated and there is no clear evidence of pulmonary embolism or DVT at this time -The threshold to return with new or think I did discuss his care with Domenica Atkins, provider and she will see patient tomorrow in the office for reassessment Medical Records Medical records reviewed: Yes I reviewed the patient's medical records. Lab Data Lab results reviewed: Yes I reviewed the patient's lab results. HPI General Date/Time Provider Initiated Documentation: 02/12/22 13:50 . HPI Narrative: This 71-year-old gentleman with history of obstructive sleep apnea and diabetes with poorly controlled atrial fibrillation on chronic anticoagulation presents with report of mechanical fall on of last week, presents now with increased pain and swelling after ambulating. He denies any additional injuries. He denies any chest pain or shortness of breath. He denies any dizziness or weakness. He denies any blood in stool, abdominal pain, headache, back pain, neck pain. The pain is exacerbated in dependent position and describes it as constant ache. On of last week. Related Data Home Medications Medication Instructions Recorded Confirmed Pen [place] 07/11/15 12/19/21 metformin 1,000 mg tablet 1,000 mg PO BID 07/11/15 02/12/22 Multi Vitamin W Minerals 1 tab BID 08/03/15 02/12/22 aspirin 81 mg tablet,delayed 81 mg DAILY 08/03/15 02/12/22 release (Aspir-) omega-3 fatty acids-fish oil 300 1,000 mg PO BID 08/03/15 02/12/22 mg-1,000 mg capsule clotrimazole-betamethasone 1 1 applic topical BID PRN 07/12/20 02/12/22 %-0.05 % topical cream potassium citrate 10 mEq (1,080 10 meq PO BID 07/12/20 02/12/22 mg) tablet,extended release sildenafil 50 mg tablet (Viagra) 50 mg PO DAILY PRN sexual activity 09/26/20 02/12/22 #10 tabs ibuprofen 600 mg tablet 600 mg PO Q8H PRN 12/22/20 02/12/22 omeprazole 20 mg capsule,delayed 20 mg PO BID 12/22/20 02/12/22 release lactobacillus combination no.9 4 4,000 mmu cells PO DAILY 12/26/20 02/12/22 billion cell capsule (Adult 50 Plus Probiotic) melatonin 10 mg capsule 20 mg PO HS PRN 12/26/20 02/12/22 simethicone 80 mg chewable tablet 80 mg PO BID-QID PRN 12/26/20 02/12/22 (Gas Relief (simethicone)) glimepiride 4 mg tablet 4 mg PO BID 11/02/21 02/12/22 insulin detemir U-100 100 unit/mL 50 unit subcut QHS 11/02/21 02/12/22 (3 mL) subcutaneous pen (Levemir FlexTouch U-100 Insulin) pravastatin 20 mg tablet 20 mg PO BID 11/02/21 02/12/22 metoprolol succinate 25 mg capsule 25 mg PO DAILY #30 caps 11/20/21 02/12/22 sprinkle, ext. release 24 hr psyllium 1 packet PO DAILY 11/20/21 02/12/22 terbinafine HCl 1 % topical cream 1 applic topical BID 11/20/21 02/12/22 psyllium husk 3.4 gram/5.4 gram 1 tbsp PO DAILY 12/19/21 02/12/22 oral powder (Metamucil) apixaban 5 mg tablet (Eliquis) 5 mg PO BID 02/12/22 02/12/22 Previous Rx's Medication Instructions Recorded sildenafil 50 mg tablet (Viagra) 50 mg PO DAILY PRN sexual activity 09/26/20 #10 tabs metoprolol succinate 25 mg capsule 25 mg PO DAILY #30 caps 11/20/21 sprinkle, ext. release 24 hr Allergies Allergy/AdvReac Type Severity Reaction Status Date / Time No Known Allergies Allergy Verified 02/12/22 13:52 General Stated Complaint: Cellulitis DEDE: 3 Review of Systems All systems reviewed & are unremarkable except as noted in HPI and below PFSH All Active Problems (Updated 02/12/22 @ 16:16 by ALISON Ye) Ecchymosis (Acute) Leg injury (Acute) Chronic anticoagulation (Acute) Lower urinary tract symptoms (LUTS) (Acute) Erectile dysfunction (Acute) Medical History Diabetes mellitus GERD (gastroesophageal reflux disease) Hemorrhoids Hyperlipidemia Nocturia Onychomycosis JEEVAN (obstructive sleep apnea) Strabismus Family History (Updated 12/20/21 @ 09:14 by Megan Guzman) Paternal Grandfather Heart attack Diabetes Amputation leg, bilat Paternal Grandmother , in house fire No problems noted. Father , heart attack at 65 with pneumonia 85 Diabetes Heart attack Lung cancer Mother Dementia Sister Diabetes Heart attack Brother Diabetes Heart attack Maternal Grandfather , of [place] at 70 Diabetes Heart disease Heart attack Maternal Grandmother , passed at 19 giving to mother No problems noted. Social History Smoking/Tobacco Use Status: Never Smoking risk assessment performed?: Yes Alcohol Intake: never Drug use: Never Substance use type: does not use Do you feel safe at home: Yes Do you feel safe in your relationship?: Yes Exam Const General: cooperative, comfortable and no acute distress HENMT Head: normal to inspection Mouth: oral mucosae normal Other: No visible evidence of trauma Eyes Pupils: PERRL EOM: EOM intact bilaterally Other: Strabismus left eye Neck Neck: normal visual inspection Other: No midline tenderness Chest Chest: normal inspection of the chest Other: No palpable tenderness Resp Effort & Inspection: normal respiratory effort Auscultation: clear to auscultation bilaterally Cardio Rate: regular rate Rhythm: abnormal rhythm GI Inspection: normal to inspection Other: Nontender abdominal exam with no visible evidence of trauma, no CVA tenderness Other: No visible evidence of trauma Back/Spine/Pelvis Other: No midline tenderness Neuro General: patient alert and patient oriented x3 Other: GCS 15 Neurovascularly intact to bilateral lower extremities Extrem Upper/lower leg/hip images: 1. Tenderness, ecchymosis noted,swelling no posterior calf tenderness no crepitus or erythema Course Vital Signs Vital signs: Vital Signs Temperature 36.7 C 02/12/22 13:26 Pulse 83 02/12/22 13:26 Respiratory Rate 17 02/12/22 13:26 Blood Pressure 158/104 H 02/12/22 13:26 Pulse Oximetry 96 02/12/22 13:26 Temperature 36.8 C 02/12/22 15:49 Temperature Source Temporal Artery Scan 02/12/22 15:49 Pulse 106 H 02/12/22 16:01 Respiratory Rate 14 02/12/22 15:49 Respiratory Effort Non-Labored 02/12/22 13:29 Blood Pressure 119/91 H 02/12/22 16:01 Blood Pressure Mean 98 02/12/22 16:01 Blood Pressure Position Sitting 02/12/22 13:26 Pulse Oximetry 98 02/12/22 16:01 Oxygen Delivery Method Room Air 02/12/22 15:49 Oxygen Flow Rate 0 02/12/22 15:49 Pain Level 8 02/12/22 13:26 Lab/Test Results Lab/Test Results: Laboratory Tests Range/Units 02/12/22 02/12/22 02/12/22 14:30 14:30 14:30 WBC (4.4-10.8) 10^3/uL 10.84 H RBC (4.36-5.78) 10^6/uL 4.08 L Hgb (13.5-17.5) g/dL 12.7 L Hct (40.0-50.0) % 38.3 L MCV (80-95) fL 94 MCH (27.0-33.0) pg 31.1 MCHC (32.0-36.0) % 33.2 RDW (11.8-14.1) % 13.0 Plt Count (130-400) 10^3/uL 145 MPV (8.0-11.0) fL 11.7 H Immature Gran % 0.5 Neutrophils % 65.1 Lymphocytes % 19.4 Monocytes % 12.5 Eosinophils % 1.9 Basophils % 0.6 Nucleated RBC % (0.0-0.3) % 0.0 Absolute Neutrophils (1.2-6.7) 10^3/uL 7.06 H Absolute Lymphocytes (1.2-3.4) 10^3/uL 2.10 Absolute Monocytes (0.1-0.8) 10^3/uL 1.36 H Absolute Eosinophils (0.0-0.7) 10^3/uL 0.21 Absolute Basophils (0.0-0.2) 10^3/uL 0.07 Sodium (136-145) mmol/L 140 Potassium (3.5-5.1) mmol/L 3.9 Chloride (98-107) mmol/L 104 Carbon Dioxide (21.0-32.0) mmol/L 26.5 Anion Gap (3-11) mmol/L 9.5 BUN (7-18) mg/dL 24 H Creatinine (0.70-1.30) mg/dL 1.0 Estimated GFR/1.73 m2 (mL/min/1.73m2) >= 60.00 Glucose (74-106) mg/dL 136 H Calcium (8.5-10.1) mg/dL 9.0 Total Bilirubin (0.2-1.0) mg/dL 1.7 H AST (15-37) U/L 16 ALT (16-63) U/L 21 Alkaline Phosphatase (46-116) U/L 69 C-Reactive Protein (0.0-0.3) mg/dL 5.32 H Total Protein (6.4-8.2) g/dL 6.9 Albumin (3.4-5.0) g/dL 3.6 Patient ABO/Rh O Positive Antibody Screen NEGATIVE
== END 2022-02-12 16:48 | disposition home or self-care (01) ==
PROVIDERS: Emergency Provider Physician Assistant; PCP Nurse Practitioner Family
DX: S80.11XA Contusion of right lower leg, initial encounter (principal); W18.39XA Other fall on same level, initial encounter; Z79.01 Long term (current) use of anticoagulants; I48.91 Unspecified atrial fibrillation; M25.461 Effusion, right knee; M25.471 Effusion, right ankle
CPT/HCPCS: 36415; 73562; 80053; 86850; 86900; 86901; 99284; 73590; 73610; 85025; 86140

== ENCOUNTER → 2022-02-16 10:36 | Outpatient (BNVA) | payer MEDICARE, BC, SELFPAY | PROVIDERS: PCP Nurse Practitioner Family; Referring Provider Nurse Practitioner Family; Visit Provider Physical Therapy Assistant | DX: X58.XXXA Exposure to other specified factors, initial encounter (principal); R00.0 Tachycardia, unspecified; I48.91 Unspecified atrial fibrillation; R06.02 Shortness of breath; S80.01XA Contusion of right knee, initial encounter | CPT/HCPCS: 99213 ==

== ENCOUNTER 2022-02-27 16:06 | Outpatient (REF) | payer MEDICARE, BC, SELFPAY ==
--- OUTSIDE RECORDS SUMMARY | 2022-02-27 16:08 | XMS_ITS | Encounter Summary ---
:1950 Author Organization [place] [address] Care Team Providers Name Role Phone Domenica Atkins APRN Primary Care Provider Encounter Details Date Type Department Care Team Description 02/19/2022 Telephone Cardiology Carlos Eduardo Quan PA [facility] ([facility] [place] [id number] CARDIOLOGY DEPT [phone] [place], [place] [address] (Wo rk) Social History Tobacco Use Types Packs/Day Years Used Date Never Smoker Smokeless Tobacco: Never Used Sex Assigned at Date Recorded Not on file documented as of this encounter Miscellaneous Notes Telephone Encounter - Carlos Eduardo Quan PA - 02/19/2022 1:06 PM EDT Left a voicemail message on patient's cell phone reaching out to him after his request for provider to call back regarding canceled sotalol drug load in the setting of recently missed Xarelto and persistent atrial fibrillation. Reiterated on voicemail the importance of not missing oral anticoagulation for three weeks prior to drug load due to the high risk of thromboembolism resulting from pharmacologic cardioversion and potential development of clot with interruption of blood thinner. Unfortunately, do not have capacity to schedule a last minute SYDNEY due to anesthesia unavailability. Stated that we would be happy to reschedule him for a future date. Asked him to call me back with any questions or concerns. Carlos Eduardo Quan PA-C 02/19/2022 documented in this encounter Plan of Treatment Upcoming Encounters Date Type Specialty Care Team Description 07/11/2022 Office Visit Cardiology Curtis Arredondo MD [facility] ER DR CARDIOLOGY DEPT. [place], [place] [address] (Wo rk) documented as of this encounter Visit Diagnoses Not on filedocumented in this encounter Care Teams Home Improvement Installer Relationship Specialty Start Date End Date Domenica Atkins, BUSINESS CONSULTANT PCP - General Family Medicine 11/21/21 [address] [place] [address] documented as of this encounter
--- OUTSIDE RECORDS SUMMARY | 2022-02-27 16:08 | XMS_ITS | Encounter Summary ---
:1950 Author Organization [place] [address] Care Team Providers Name Role Phone Domenica Atkins APRN Primary Care Provider Reason for Visit Auth/Cert Specialty Diagnoses / Procedures Referred By Contact Refer red To Contact Diagnoses Atrial fibrillation, unspecified type [I48.91] Procedures ELECTROPHYSIOLOGY PROCEDURE Referral ID Status Reason Start Date Expiration Date Visits Requ ested Visits Authorized [id number] 1 1 Encounter Details Date Type Department Care Team Description 01/02/2022 Surgery Electrophysiology Lab at Ryder Arredondo [place] [facility] [place] PROCEDURE [facility] [place] [address] CENTER [phone] [place] [address] Social History Tobacco Use Types Packs/Day Years Used Date Never Smoker Smokeless Tobacco: Never Used Sex Assigned at Date Recorded Not on file documented as of this encounter Last Filed Vital Signs Vital Sign Reading Time Taken Comments Blood Pressure 94/66 01/02/2022 12:00 PM EDT Pulse 67 01/02/2022 12:00 PM EDT Temperature 36.5 ??C (97.7 ??F) 01/02/2022 11:49 AM EDT Respiratory Rate 16 01/02/2022 12:00 PM EDT Oxygen Saturation 92% 01/02/2022 12:00 PM EDT Inhaled Oxygen Concentration - - Weight 112.5 kg (248 lb) 01/02/2022 6:44 AM EDT Height 170.2 cm (5' 7) 01/02/2022 6:44 AM EDT Body Mass Index 38.84 01/02/2022 6:44 AM EDT documented in this encounter Discharge Instructions Patient InstructionsBeau Julian MD - 01/02/2022 10:07 AM EDT DISCHARGE INSTRUCTIONS FOLLOWING YOUR ABLATION 1. Continue your medications as prescribed. 2. Follow up with Dr. Arredondo or Eliel in 2-3 months. You will be contacted with arrangements. 3. Resume anticoagulation as per your home dose. 4. Standard post ablation wound care instructions (see below): Anticoagulation - Continue your anticoagulation as prescribed. Catheter Insertion Area Care - You may take a shower if you wish the morning after the procedure. Wash the area with soap and water. - Look for signs of infection over the next several days. - A little spot of blood at the catheter insertion area is not unusual. A bruise or a small lump under the skin is normal; they generally disappear in three or four days. In some cases you may develop a larger bruise that may appear to extend somewhat down your thigh; this is normal and will resolve, generally within 1-2 weeks. - Expect some mild tenderness over the area where the catheter was inserted. This should improve during the 24 to 48nhours after the procedure. - Take Tylenol if needed and contact your doctor if the discomfort worsens. Avoid higher-dose ibuprofen (greater than 400mg twice daily) due to increased bleeding risk while on blood thinners (does notinclude aspirin). Problems to Watch For If there is bright red blood flowing from the catheter insertion area STOP what you are doing and lie down. Hold pressure steadily on the area for fifteen minutes. Call for help. If the bleeding does not stop in fifteen minutes, call 911. If there is rapid swelling with a ???black and blue?? color at the catheter insertion area, there may be bleeding inside. Call your doctor if there is any increase in size. Check the insertion site for the next few days at home. Signs of infection are: Redness Swelling Yellow, white, green or brown, foul smelling drainage Increased soreness If you think there is an infection, take your temperature. Then call your doctor. The limb on the side where you had the catheter inserted should look and feel normal in its color, sensation and temperature. If your leg becomes cool, pale, blue or changing color with numbness and tingling, contact your doctor. If you feel faint or dizzy, lie down with your feet elevated. Have someone call the doctor. If you are alert, drink fluids. Activity - Do not bend over, strain or lift heavy objects for 48 hours after the procedure. - Do not participate in active sports for 1 week. - Avoid heavy lifting (greater than 10 pounds) for one week following your procedure. Additional discharge instructions: Pt advised to be vigilant for any of the following clinical findings (or anything else out of the ordinary): Bleeding, pain, or swelling at any sheath/catheter insertion site. Sometimes this may develop even days after discharge, and there may then be a need to examine this and alter the anticoagulation medications. It is good to be up and around after the ablation procedure, but heavy lifting and straing should be avoided for the first 3-5 days. Chest discomfort. Inflammation in the form of pericarditis may result in chest pain, which is not uncommon after an ablation procedure for atrial fibrillation. It often may be position-dependent, or will be exacerbated by ventilatory movement. If the patient experiences chest discomfort, it should be medically evaluated to ascertain the significance, and to assess for more serious alternative considerations requiring urgent intervention. If it otherwise is pericarditis, it commonly responds well to anti-inflammatory medication. Atrial dysrhythmias (flutter, fibrillation, tachycardia). Post-procedure atrial dysrhythmias on the basis of temporary inflammation are not uncommon, and are not necessarily indicative of an ineffective procedure... if the dysrhythmia is due to inflammtion, the dysrhythmias likely will cease as the inflammation resolves. The first 1-2 months are the most likely time during which this matter is relevant. If the patient experiences dysrhythmias, the Cardiac Electrtophysiology Service should be contacted. Side effects of any new medications initiated at the [facility]. The patient should be aware and informed of any significant potential side effects that may be incurred as a result of being on new medication... Sudden weakness, sensory loss, altered behavior or speech. This might be a consequence of a cerbrovascular event (stroke or TIA). This requires urgent and immediate medical attention. Fever or sweats, significant malaise. Possibly a consequence of infection. This requires that the Cardiac Electrophysiology Service be contacted, or otherwise an urgent medical assessment should be obtained. Shortness of breath, increased exertional intolerance. A variety of pulmonary or cardiac processes could be responsible for this. This requires that the Cardiac Electrophysiology Service be contacted, or otherwise an urgent medical assessment should be obtained. This is not an exhaustive list. If the patient experiences anything out of the ordinary post-procedure, he/she is encouraged to contact his/her physician or the Cardiac Electrophysiology Service ([phone]). documented in this encounter Medications at Time of Discharge Medication Sig Dispensed Refills Start Date End Date insulin detemir U-100 Inject 50 Units 0 (Levemir) 100 unit/mL subcutaneously daily. (3 mL) Insulin Pen lactobacillus Take 1 capsule by mouth 0 rhamnosus, GG, daily. (CULTURELLE) 10 billion cell Capsule glimepiride (AMARYL) 4 Take 4 mg by mouth 2 0 mg Tablet times daily. metFORMIN (GLUCOPHAGE) Take 1,000 mg by mouth 2 0 1,000 mg Tablet times daily (with meals). pravastatin (Pravachol) Take 20 mg by mouth 2 0 20 mg Tablet times daily. multivitamin Take 1 tablet by mouth 0 (THERAGRAN) Tablet daily. potassium citrate SR Take by mouth daily. 0 (Urocit) 10 mEq (1,080 mg) Tablet Sustained Release ASPIRIN ORAL Take 81 mg by mouth 0 daily. omeprazole (PriLOSEC) Take 20 mg by mouth 0 20 mg Capsule, Delayed daily. Release(E.C.) sildenafiL (VIAGRA) 50 Take 50 mg by mouth as 0 mg Tablet needed for Erectile Dysfunction. SIMETHICONE ORAL Take by mouth as needed. 0 Psyllium Seed-Sucrose Take by mouth daily. 0 (0) Powder tamsulosin (Flomax) 0.4 Take 0.4 mg by mouth 0 mg Capsule daily. metoprolol succinate XL Take 37.5 mg by mouth 0 (Toprol-XL) 25 mg daily. Tablet Sustained Release 24 hr rivaroxaban (Xarelto) Take 20 mg by mouth 0 20 mg Tablet daily. apixaban (Eliquis) 5 mg Take 5 mg by mouth 2 0 Tablet times daily. documented as of this encounter Progress Notes Luz Woodall RN - 01/02/2022 2:01 PM EDT Patient discharge to home. IV removed, site benign. RN discussed pain management with patient, pain tolerable. Patient has all belongings and supplies needed. Patient received After Visit Summary and any prescriptions, or was directed to pick them up at pharmacy if applicable. These were reviewed, patient verbalizes understanding of AVS. All questions answered. Patient encouraged to call with questions or concerns. Patient discharged to home with family via wheelchair to east entrance. documented in this encounter H&P Notes Jake Barajas RN - 01/02/2022 11:05 AM EDT Pt arrived from EP lab s/p procedure (see EP note). Vital signs currently stable. Right venous groinaccess clear, dry and intact. Currently groin site is soft and non-tender. Pt has palpable pulses toboth lower extremities and color, temperature and sensation currently normal. Will continue to monitor pending transfer back to same day program. Pt's HOB maintained at 30 degrees or less. Ryder Arredondo MD - 01/02/2022 7:10 AM EDT Images from the original note were not included. Clinical Cardiac Electrophysiology Interval History and Physical Exam For Planned Procedure HISTORY OF PRESENT ILLNESS: Wilber Shell is a 71 y.o. male with a history of atrial flutter, JEEVAN, HTN, who presents for EPS and possible ablation. No missed doses of apixaban. Has noticed worsening shortness of breath. ROS: Denies recent fevers, chills. No syncope No orthopnea No bleeding No neurological changes PHYSICAL EXAM: Vital Signs: BP (!) 119/93 Pulse 86 Temp 36.1 ??C (97 ??F) (Temporal) Resp 20 Ht 170.2 cm (5' 7) Wt 112.5 kg (248 lb) SpO2 99% BMI 38.84 kg/m?? A&O x 3, calm conversant, no acute distress JVD inderminate Lung: clear to auscultation bilaterally, normal respiratory effort Heart: regular heart rate Chest: no open wound or new rash, Ext: no edema PROBLEM LIST: Patient Active Problem List Diagnosis Code ??? Typical atrial flutter I48.3 ALLERGIES: No Known Allergies MEDICATIONS: Current Facility-Administered Medications Medication Dose Route Frequency Provider Last Rate Last Admin ??? sodium chloride 0.9 % (flush) (BD PosiFlush Normal Saline 0.9) flush 5-20 mL 5-20 mL IntravenousQ1 Min PRN Jake Baptiste, DO ??? lidocaine (Xylocaine) 1% (10 mg/mL) injection 3 mg 0.3 mL Subcutaneous Once PRN Emile Jake M, DO ??? lactated ringers infusion 1,000 mL Intravenous Continuous Emile Jake M, DO PAST SURGICAL HISTORY: No past surgical history on file. LAB VALUES: Laboratory Data: No results found for: WBC, HGB, HCT, MCV No results found for: TSH No results found for: INR ASSESSMENT AND PLAN: Wilber Shell is a 71 y.o. male with a history of atrial flutter, JEEVAN, HTN, p/f EPS study and possible ablation. No contraindications to proceeding today. No SYDNEY needed given no missed doses of apixaban. Rationales for, intended benefits and potential risk of planned procedures reviewed. The patient indicated understanding and agreement with the plan. Informed consent signed. Beau Julian MD. 01/02/2022 Addendum I personally interviewed and examined the patient, reviewed the available data. Mr Gonsales is here for elective EPS/ablation and does not wish for a complicated procedure - his symptoms are subtle, although he clearly has rapidly conducted atrial arrhythmias. Possibility that we will be proceeding to inpatient admission for sotalol load today depending upon the findings of the EPS RYDER ARREDONDO MD documented in this encounter Plan of Treatment Upcoming Encounters Date Type Specialty Care Team Description 07/11/2022 Office Visit Cardiology Ryder Arredondo MD [facility] CARDIOLOGY DEPT. [place], [place] [address] (Wo rk) documented as of this encounter Procedures Procedure Name Priority Date/Time Associated Comments Diagnosis POCT GLUCOSE Routine 01/02/2022 12:01 Results for this PM EDT procedure are i n the results section. ELECTROPHYSIOLOGY Routine 01/02/2022 8:27 Atrial Results for this PROCEDURE AM EDT fibrillation, procedure are in unspecified type the results section. HEMOGRAM Routine 01/02/2022 7:15 Atrial Results for this AM EDT fibrillation, procedure are in unspecified type the results section. DIFFERENTIAL, AUTOMATED Routine 01/02/2022 7:15 Atrial R esults for this AM EDT fibrillation, procedure are in unspecified type the results section. HC CBC,PLT & AUTO DIFF Routine 01/02/2022 7:15 Atrial AM EDT fibrillation, unspecified type BASIC METABOLIC PANEL Routine 01/02/2022 7:15 Atrial Res ults for this (NON-FASTING) AM EDT fibrillation, procedure are in unspecified type the results section. POCT GLUCOSE Routine 01/02/2022 6:51 Results for this AM EDT procedure are i n the results section. documented in this encounter Results POCT Glucose (01/02/2022 12:01 PM EDT) P athologist Signature POC Glucose 144 65 - 199 [facility] mg/dL [facility] Comment: Supplemental ranges: <140 mg/dL before meals <180 mg/dL all other times of the day Specimen Anatomical Collection Method Collection Time Receive d Time (Source) Location / / Volume Laterality Blood 01/02/2022 12:01 01/02/2022 PM EDT 12:01 PM EDT Ryder Arredondo MD POINT OF CARE TEST ORDERABLE S Performing Organization Address City/State/[place]IP [place] [address] ELECTROPHY[address] PROCEDURE (01/02/2022 8:27 AM EDT) Specimen (Source) Anatomical Location Collection Method / Collectio n Time Received Time / Laterality Volume Impressions Ryder Arredondo MD - 01/06/2022 11:53 AM EDT : ? ? Successful ablation of typical atrial flutter DISCUSSION: 1. Continue metoprolol succinate at 75 m g daily. 2. Continue apixaban 5mg twice daily for anticoagulation. 3. Follow up in clinic with either Dr. Melissa loving or Dr. Arredondo. I was the road machine operator for the proce deny, present for the entire procedure and personally edited this [facility] RYDER ARREDONDO MD Narrative Ryder Arredondo MD - 01/06/2022 11:53 AM EDT Ablation of Atrial flutter: Electrophysi ology Study, Mapping (CARTO), Cardioversion, Ablation Indication: Symptomatic atrial flutter Truck Headlight Assembler: Ryder WAGONER. B. Fellow: Beau Julian MD Procedure: The patient was brought to [facility] Electrophysiology Laboratory in the fasting sedated state. ??Continuous electrocardiographic monitoring was instituted. General anest hesia was delivered by our anesthesia colleagues. Both groins were prepped and draped in the usual sterile fashion and 2% lidocaine with 0. 5 % bupivicaine in a 2:3 mixture was instilled for local anesthesia in [facility] right groin. ??Venous access was obtained using the Seldinger technique, guided by ultrasonography. ?? Catheters were positioned utilizing fluo roscopy. Site ??Sheath Catheter ? Ac cess site ? Coronary sinus 8.5 Fr ?Inquiry Decapoalar ?Right femoral vein Ablation/Map 8.5 Fr SR0 ?8 Fr 3.5 mm tip, Smarttouch S/F ? Right femoral vein After all of the catheters were in posit ion the patient was heparinized with a 5000 unit heparin bolus, without infusion. Programmed electrical stimulation, mappi ng, and ablation was performed as detailed below and stored on Gifi. ??At the termination of the procedure the catheters and sheaths were removed, and hemostasis was obtained with manual compression. ??The patient tolerated the procedure well and was transported to a telemetry bed in good condition. Total fluoroscopy time: 0.7 minutes, DAP <100 cGy/cm-2 RESULTS: 1. Baseline rhythm was coarse atrial fib rillation with a ventricular rate of ~100bpm. Patient underwent a 200J DCC V with conversion to normal sinus rhythm. AERP was 600/220ms, an AVNERP <6 00/220ms. AVWB 320ms 2. Rapid atrial pacing from the proximal coronary sinus electrode pair, initialy generating small nonsustained r uns of atrial fibrillation. Atrial flutter with a right to left CS activati on was eventually induced, at a cycle length of 240ms. Activation mappin g was performed with a Pentaray which remonstrated counter-clockwise atr ial flutter. THe pentaray was exchanged for the ablation catheter and a PPI-TCL from the CTI was 11 ms. 3. Multiple radiofrequency lesions were delivered along the cavo-tricuspid isthmus, starting at the tricuspid valve annulus, in approximately the ' 6 o'clock ' position in LEIDA projection. Ca re was taken to stay off the septum. The CARTO electroanatomic mappin g system was used to locate the lesions in 3 D space. Ablation was comme nced with 30 thao irrigated ablation. Ablation was performed in a po int by point fashion to the IVC, with review of ablation dwell time, impe dance drops, and mitigation of signal to indicate successful ablation. Atrial flutter broke with ablation and catheter manipulation in the mid-ist hmus ('high voltage' channel seen here). 3. One half hour later, pre and post- utamine (5 mcg/minute), transithmus conduction times were 154 ms from the septum to the lateral wall. Pacing from the lateral wall of th e right atrium had a TICT of 120ms. Activation mapping confirmed a li ne of block along the ablation lesion set. Intervals: Cycle length: 724 ms CA 172 ms QRS 93 ms QT 344 ms HV 54 ms (taken in atrial flutter) Conduction AVWB 320ms AERP 600/220ms AVNERP <600/220ms Ryder Arredondo MD EP PROCEDURE ORDERABLES Differential, Automated (01/02/2022 7:15 AM EDT) P athologist Signature Neutrophils % 60.2 % [facility] Neutr Abs (ANC) 5.32 1.70 - [facility] 6.10 [facility] x10(3)/[facility] LABORATORY Lymphocytes % 25.6 % [facility] Lymphocytes Abs 2.3 0.9 - 3.2 [facility] x10(3)/[facility] LABORATORY Monocytes % 10.5 % [facility] Monocyte Abs 0.9 0.3 - 0.9 [facility] x10(3)/[facility] LABORATORY Eosinophils % 2.6 % [facility] Eosinophils Abs 0.2 0.0 - 0.4 [facility] x10(3)/[facility] LABORATORY Basophils % 0.8 % [facility] Basophils Abs 0.1 0.0 - 0.1 [facility] x10(3)/[facility] LABORATORY Immature Gran % 0.30 % [facility] Comment: Immature granulocytes(IG's)percentage an d absolute count will include metamyelocytes, myelocytes, and promyelo cytes. Blood smears from CBCs yielding IG's will be scanned manually for concor dance. If this scan disagrees with the automated IG or if promyelocytes are not ed, a manual differential will be performed. Nini Gran Abs 0.03 0.00 - 0.04 x10(3)/[facility] Specimen Anatomical Collection Method Collection Time Receive d Time (Source) Location / / Volume Laterality Blood 01/02/2022 7:15 AM 7:32 EDT AM EDT Resulting Agency Comment Spec In Lab Beau Julian MD HEMATOLOGY ORDERABLES Performing Organization Address City/State/Z[place] [address] (ABNORMAL) Hemogram (01/02/2022 7:15 AM EDT) Analysis Performed At Patho logist Time Signature WBC 8.8 4.0 - 9.5 [facility] x10(3)/[facility] LABORATORY RBC 4.42 (L) 4.58 - [facility] 5.54 [facility] x10(6)/[facility] LABORATORY Hemoglobin 14.0 13.7 - [facility] 16.5 g/dL [facility] Hematocrit 42.5 40.5 - [place] 48.5 % [facility] MCV 96.2 (H) 82.9 - [place] 93.1 [facility] LABORATORY MCH 31.7 27.5 - [place] 32.1 pg [facility] MCHC 32.9 32.0 - [place] 35.7 g/dL [facility] Platelets 179 145 - 357 [facility] x10(3)/[facility] LABORATORY RDWSD 46.4 (H) 36.0 - [place] 45.0 [facility] LABORATORY RDWCV 13.1 11.4 - [facility] 13.8 % [facility] MPV 11.3 7.6 - 12.9 [facility] LABORATORY nRBC % Auto 0.0 % [facility] nRBC Abs Auto 0.000 0.000 - [facility] PAT 0.000 [facility] x10(3)/[facility] LABORATORY Specimen Anatomical Collection Method Collection Time Receive d Time (Source) Location / / Volume Laterality Blood 01/02/2022 7:15 AM 7:32 EDT AM EDT Resulting Agency Comment Spec In Lab Beau Julian MD HEMATOLOGY ORDERABLES Performing Organization Address City/State/ZIP [place] [address] (ABNORMAL) Basic Metabolic Panel (non-fasting) (01/02/2022 7:15 AM EDT) P athologist Signature Glucose Lvl 200 (H) 65 - 199 [facility] mg/dL [facility] Comment: Diabetes: >=200 mg/dL plus symp toms BUN 18 10 - 20 mg/dL [facility] Creatinine 0.89 0.80 - 1.50 mg/dL [facility] Sodium 140 135 - 145 mmol/L [facility] Potassium 4.5 3.5 - 5.0 mmol/L [facility] Comment: Please note: ??Patients with WBC >100,00 0 may have falsely elevated Potassium levels. ??For accurate Potassium quantif ication in these patients send serum separator tube (gold top) for subsequent determinations. ??Contact the Clinical Chemistry Laboratory if there are any qu estions. Chloride 105 98 - 107 mmol/L [facility] CO2 23 22 - 31 mmol/L [facility] Anion Gap 12 5 - 15 mmol/L [facility] Calcium 9.1 8.5 - 10.5 mg/dL [facility] Estimated GFR 86 >=60 mL/min/1.73 m?? [facility] Comment: This patient? s estimated glomerular filtration rate (eGFR) is between 86 mL/min/1.73 m2 (patients with less muscl e mass per kg body weight) and 100 mL/min/1.73 m2 (patients with more muscl e mass per kg body weight) as determined by the CKD-EPI equation. Asse ssment of eGFR is not appropriate when creatinine concentrations are rapidly ch anging. For clinical decisions where creatinine clearance will affect therapy , a 24-hour urine creatinine clearance may be advised. Assignment of CKD stage 1 - 5 for patien ts with an eGFR near the transition point between stages may be based on cli nical assessment of muscle mass and symptoms in addition to eGFR. Specimen Anatomical Collection Method Collection Time Receive d Time (Source) Location / / Volume Laterality Blood 01/02/2022 7:15 AM 2 7:32 EDT AM EDT Resulting Agency Comment Spec In Lab Ryder Arredondo MD CHEMISTRY ORDERABLES Performing Organization Address City/State/ZIP [place] [address] POCT Glucose (01/02/2022 6:51 AM EDT) P athologist Signature POC Glucose 186 65 - 199 [facility] mg/dL [facility] Comment: Supplemental ranges: <140 mg/dL before meals <180 mg/dL all other times of the day Specimen Anatomical Collection Method Collection Time Receive d Time (Source) Location / / Volume Laterality Blood 01/02/2022 6:51 AM 2 6:51 EDT AM EDT Ryder Arredondo MD POINT OF CARE TEST ORDERABLE S Performing Organization Address City/State/Z[place] [address] documented in this encounter Visit Diagnoses Diagnosis Atrial fibrillation, unspecified type Atrial fibrillation, unspecified type documented in this encounter Administered Medications documented in this encounter Active and Recently Administered Medications Times are shown in EDT. Continuous Medication Order 12/31/2021 01/01/2022 01/02/2022 lactated ringers infusion (CANCELED) 0739 (New Bag - Provider: Malu Erazo CRNA)1022 (Anesthesia Volume Adjustment - Provider: Malu Erazo CRNA) 1,000 mL, at 100 mL/hr, Intravenous, CON TINUOUS, Starting on Sat01/02/22 at 0715, Until Sat01/02/22 at 1139, Day of Surgery (Day of Procedure) PRN Medication Order 12/31/2021 01/01/2022 01/02/2022 acetaminophen (Tylenol) tablet 650 mg 650 mg, Oral, EVERY 4 HOURS PRN, Startin g on Sat01/02/22 at 1039, Until Sat01/02/22 at 1630, Pain, Fever, Mild-moderate pain (1-6), Maximum dose of acetaminophen is 4000 mg from all sources in 24 hours. W hen ordered for pain, acetaminophen shou ld be given even when other ordered pain medications are indicated., Recovery (Recovery-Hospital Unit), Routine documented in this encounter Care Teams Powertrain Design Engineer Relationship Specialty Start Date End Date Domenica Atkins, TOOL CLERK PCP - General Family Medicine 11/21/21 [address] [place] [address] documented as of this encounter
--- OUTSIDE RECORDS SUMMARY | 2022-02-27 16:08 | XMS_ITS | Encounter Summary ---
:1950 Author Organization [facility] [place] [address] Care Team Providers Name Role Phone Domenica Atkins APRN Primary Care Provider Encounter Details Date Type Department Care Team Description 01/10/2022 Office Visit Cardiology at [facility] Persisten t atrial [place] MD fibrillation [address] [facility] [address] [place], [place] CARDIOLOGY DEPT. [id number] [place], [place] [id number] Social History Tobacco Use Types Packs/Day Years Used Date Never Smoker Smokeless Tobacco: Never Used Sex Assigned at Date Recorded Not on file documented as of this encounter Last Filed Vital Signs Vital Sign Reading Time Taken Comments Blood Pressure 124/75 01/10/2022 4:08 PM EDT Pulse 97 01/10/2022 4:08 PM EDT Temperature - - Respiratory Rate - - Oxygen Saturation - - Inhaled Oxygen Concentration - - Weight 115.2 kg (254 lb) 01/10/2022 4:08 PM EDT Height 170.2 cm (5' 7) 01/10/2022 4:08 PM EDT Body Mass Index 39.78 01/10/2022 4:08 PM EDT documented in this encounter Patient Instructions Patient InstructionsSaCurtis weber MD - 01/10/2022 4:26 PM EDT Images from the original note were not included. It was nice to see you in the Cardiac Electrophysiology Clinic today. We discussed the role of medical therapy - we discussed the medicine DRONEDARONE or MULTAQ You should continue with your medicines as before I will arrange for the followin) Sotalol load (an inpatient admission - if Multaq is expensive) If you do not hear from our schedulers in the next 2 weeks, call [phone] and speak to 'Oralia' or 'Niurka' For any questions, call my office: [phone] (and then 'option 2') Curtis WAGONER.[facility], Clinical Cardiac Electrophysiology, [facility], For more information about heart rhythm issues, go to [email or web address] - the Heart Rhythm Society's patient resource center [facility] To access your health care information, go to the web at: [email or web address] (you will need to register) Heart-Healthy Lifestyle You can help keep your heart and blood vessels healthy by taking steps toward a healthier lifestyle.These healthy habits include not smoking, eating right, exercising regularly, staying at a healthy weight, and getting the screening tests you need. A heart-healthy lifestyle is important for everyone, not just for people with existing health problems. It can help you keep your heart and blood vessels healthy. If you already have heart or blood vessel problems, such as high cholesterol or high blood pressure, a healthy lifestyle can help you loweryour risk of a heart attack and stroke. If you have children, you can be their healthy role model. If your habits are healthy, your childrenare more likely to build those habits in their own lives. Don't smoke Everyone who uses tobacco would benefit from quitting. When you quit smoking--no matter how old you are--you will decrease your risk of heart attack, stroke, and many other health problems. Where can you learn more? Visit our health information library at [email or web address] You can also view health information on [employer], your personal patient account. Log in or sign up today. AttachmentsThe following attachments cannot be sent through Care Everywhere. Atrial Fibrillation: Cardioversion or Medicines: Deciding About (Filipino) documented in this encounter Progress Notes Curtis Arredondo MD - 01/10/2022 3:40 PM EDT Images from the original note were not included. Section of Cardiology/Cardiac Electrophysiology Clinical Cardiac Electrophysiology Follow Up Patient ID Wilber Shell 1950 [id number] Wilber Shell is following up in EP clinic Chief Complaint Fatigue History This is a 71 y.o. male following up/being seen in clinic for atrial arrhytmias. He was recently an inpatient for EPS - he was found to have a typical atrial flutter (which was ablated) but also substrate for atypical atrial flutter and atrial fibrillation. He did well for a few days after the procedure - no issues with access sites, but a few days later, he developed some dyspnea and fatigue. Not particularly aware of palpitations. No heart failure symptoms. Some mild LOAIZA. Problem List Patient Active Problem List Diagnosis ??? Typical atrial flutter ??? Type 2 diabetes mellitus Review of Systems Review of Systems Constitutional: Positive for malaise/fatigue. Negative for night sweats. Cardiovascular: Positive for dyspnea on exertion. Meds Current Outpatient Medications Medication Sig Dispense Refill ??? omega-3 acid ethyl esters (Lovaza) 1 gram Capsule Take 2 g by mouth 2 times daily. ??? insulin detemir U-100 (Levemir) 100 unit/mL (3 mL) Insulin Pen Inject 50 Units subcutaneously daily. ??? lactobacillus rhamnosus, GG, (CULTURELLE) 10 billion cell Capsule Take 1 capsule by mouth daily. ??? glimepiride (AMARYL) 4 mg Tablet Take 4 mg by mouth 2 times daily. ??? metFORMIN (GLUCOPHAGE) 1,000 mg Tablet Take 1,000 mg by mouth 2 times daily (with meals). ??? pravastatin (Pravachol) 20 mg Tablet Take 20 mg by mouth 2 times daily. ??? multivitamin (THERAGRAN) Tablet Take 1 tablet by mouth daily. ??? potassium citrate SR (Urocit) 10 mEq (1,080 mg) Tablet Sustained Release Take by mouth daily. ??? ASPIRIN ORAL Take 81 mg by mouth daily. ??? omeprazole (PriLOSEC) 20 mg Capsule, Delayed Release(E.C.) Take 20 mg by mouth daily. ??? sildenafiL (VIAGRA) 50 mg Tablet Take 50 mg by mouth as needed for Erectile Dysfunction. ??? SIMETHICONE ORAL Take by mouth as needed. ??? Psyllium Seed-Sucrose (0) Powder Take by mouth daily. ??? tamsulosin (Flomax) 0.4 mg Capsule Take 0.4 mg by mouth daily. ??? metoprolol succinate XL (Toprol-XL) 25 mg Tablet Sustained Release 24 hr Take 37.5 mg by mouth daily. ??? apixaban (Eliquis) 5 mg Tablet Take 5 mg by mouth 2 times daily. ??? rivaroxaban (Xarelto) 20 mg Tablet Take 20 mg by mouth daily. No current facility-administered medications for this visit. Social History Social History Socioeconomic History ??? Marital status: Spouse name: None ??? Number of children: None ??? Years of education: None ??? Highest education level: None Occupational History ??? None Tobacco Use ??? Smoking status: Never Smoker ??? Smokeless tobacco: Never Used Vaping Use ??? Vaping Use: Never used Substance and Sexual Activity ??? Alcohol use: None ??? Drug use: None ??? Sexual activity: None Other Topics Concern ??? None Social History Narrative ??? None Social Determinants of Health Financial Resource Strain: Not on file Food Insecurity: Not on file Transportation Needs: Not on file Physical Activity: Not on file Housing Stability: Not on file Family History No family history on file. Exam Patient Vitals for the past 24 hrs: Pulse BP 01/10/22 1608 97 124/75 Physical Exam Constitutional: Comments: There is no height or weight on file to calculate BMI. HENT: Mouth/Throat: Pharynx: No oropharyngeal exudate. Cardiovascular: Rate and Rhythm: Normal rate. Pulses: Normal pulses. Pulmonary: Effort: Pulmonary effort is normal. Skin: General: Skin is warm. Neurological: General: No focal deficit present. Mental Status: He is alert. I have personally reviewed the ECG: Atrial fibrillation, average ventricular sponsor 94 bpm, QRS 80 ms, QT interval 360 ms (QTC 450) Lesli Shell is seen in the EP clinic for follow up after a recent EPS/ablation procedure. He was found to have an atypical atrial flutter at initial presentation, but a more typical right atrialcounterclockwise (isthmus dependent) flutter was induced during the procedure. This was targeted with ablation. He was also noted to have atypical flutter as well as atrial fibrillation during that procedure. We had a discussion at the time about considering antiarrhythmic loading, but elected to ablate his atrial flutter to see how he does. Unfortunately, he now appears to be in atrial fibrillation, with reasonable rate control - so I think that it makes sense to consider proceeding with the initial plan for admission for sotalol load. Recommendations / Plan A) No changes to current medicines B) Admission for sotalol load C) Follow up a few months after his sotalol load is complete CURTIS ARREDONDO MD Cardiac Electrophysiology [facility] T: [phone] F: [phone] 20 minutes of this 25 minute encounter were spent preparing to see the patient (e.g. review of tests), obtaining and/or reviewing separately obtained history, performing a medically appropriate examination and/or evaluation, counseling and educating the patient, ordering medications, tests, or procedures, documenting clinical information in the electronic, independently interpreting results Cc: Domenica Atkins APRN documented in this encounter Plan of Treatment Upcoming Encounters Date Type Specialty Care Team Description 07/11/2022 Office Visit Cardiology Curtis Arredondo MD [facility] CARDIOLOGY DEPT. [place], [place] [address] (Wo rk) documented as of this encounter Visit Diagnoses Diagnosis Persistent atrial fibrillation Atrial fibrillation documented in this encounter Care Teams Duralumin Metalworker Relationship Specialty Start Date End Date Domenica Atkins APRN PCP - General Family Medicine 11/21/21 [address] [place] [address] documented as of this encounter
--- OUTSIDE RECORDS SUMMARY | 2022-02-27 16:08 | XMS_ITS | Encounter Summary ---
:1950 Author Organization [facility] [place] [address] Care Team Providers Name Role Phone Domenica Atkins LAUREN Primary Care Provider Encounter Details Date Type Department Care Team Description 01/11/2022 Telephone Cardiology at [facility] Génesis Giordano, [facility] [place] [address] Social History Tobacco Use Types Packs/Day Years Used Date Never Smoker Smokeless Tobacco: Never Used Sex Assigned at Date Recorded Not on file documented as of this encounter Miscellaneous Notes Telephone Encounter - Génesis Giordano RN - 01/11/2022 11:27 AM EDT VM from patient reporting he would like to move forward with sotalol load admission as discussed with Dr. Arredondo yesterday. Génesis Giordano instructor correspondence school [facility] [id number] documented in this encounter Plan of Treatment Upcoming Encounters Date Type Specialty Care Team Description 07/11/2022 Office Visit Cardiology Curtis Arredondo MD [facility] ER DR CARDIOLOGY DEPT. [place], [place] [address] (Wo rk) documented as of this encounter Visit Diagnoses Not on filedocumented in this encounter Care Teams Pharmacology Teacher Relationship Specialty Start Date End Date Domenica Atkins, CHIEF INFORMATION OFFICER PCP - General Family Medicine 11/21/21 [address] [place] [address] documented as of this encounter
--- OUTSIDE RECORDS SUMMARY | 2022-02-27 16:08 | XMS_ITS | Encounter Summary ---
:1950 Author Organization [facility] [place] [address] Care Team Providers Name Role Phone RayDomenica tate Dayron AGUILAR Primary Care Provider Reason for Visit Reason Onset Date Comments Pre Procedure Call 02/16/2022 Encounter Details Date Type Department Care Team Description 02/16/2022 Telephone Cardiology at [facility] [place]aris [place] [phone] Social History Tobacco Use Types Packs/Day Years Used Date Never Smoker Smokeless Tobacco: Never Used Sex Assigned at Date Recorded Not on file documented as of this encounter Miscellaneous Notes Telephone Encounter - Damaris Bowen, RN - 02/16/2022 8:53 AM EDTSummary: Pre Procedure Call: Sotalol Drug Load Admission TC to pt to relay pre admission instructions for sotalol drug load scheduled on 02/20. Work up provider is Carlos Eduardo Quan. Reconciled medication list including ensuring he is on a blood thinner (currently on Eliquis, using up last of supply and then will transition to Xarelto because it is more cost effective) Pt reports that he missed a dose of his Eliquis on Saturday (02/12/22) as directed by his PCP due to a recent fall the patient had on 02/08 Notified pt that we do not have SYDNEY availability & that drug load will need to be cancelled for 02/20 & rescheduled to a later date due to missed dose. Pt reports that he is not rescheduling andwould like to speak with Carlos Eduardo Quan. Notified Carlos Eduardo Quan who will reach out to patient at his earliest availability. documented in this encounter Plan of Treatment Upcoming Encounters Date Type Specialty Care Team Description 07/11/2022 Office Visit Cardiology Curtis Arredondo MD [facility] ER DR CARDIOLOGY DEPT. [place], [place] [address] (Wo rk) documented as of this encounter Visit Diagnoses Not on filedocumented in this encounter Care Teams Attenuator Relationship Specialty Start Date End Date Domenica Atkins APRN PCP - General Family Medicine 11/21/21 [address] [place] [address] documented as of this encounter
--- OUTSIDE RECORDS SUMMARY | 2022-02-27 16:08 | XMS_ITS | Clinical Summary ---
:1950 Author Organization [facility] [place] [address] Care Team Providers Name Role Phone Domenica Atkins LAUREN Primary Care Provider Allergies No known active allergies Medications Medication Sig Dispensed Refills Start Date End Date Status insulin detemir Inject 50 Units 0 Active U-100 (Levemir) 100 subcutaneously unit/mL (3 mL) daily. Insulin Pen lactobacillus Take 1 capsule by 0 Active rhamnosus, GG, mouth daily. (CULTURELLE) 10 billion cell Capsule glimepiride (AMARYL) Take 4 mg by mouth 2 0 Active 4 mg Tablet times daily. metFORMIN Take 1,000 mg by 0 Act vadim (GLUCOPHAGE) 1,000 mouth 2 times daily mg Tablet (with meals). pravastatin Take 20 mg by mouth 0 Active (Pravachol) 20 mg 2 times daily. Tablet multivitamin Take 1 tablet by 0 Active (THERAGRAN) Tablet mouth daily. potassium citrate SR Take by mouth daily. 0 Active (Urocit) 10 mEq (1,080 mg) Tablet Sustained Release ASPIRIN ORAL Take 81 mg by mouth 0 Active daily. omeprazole Take 20 mg by mouth 0 Active (PriLOSEC) 20 mg daily. Capsule, Delayed Release(E.C.) sildenafiL (VIAGRA) Take 50 mg by mouth 0 Active 50 mg Tablet as needed for Erectile Dysfunction. SIMETHICONE ORAL Take by mouth as 0 Active needed. Psyllium Take by mouth daily. 0 Active Seed-Sucrose (0) Powder tamsulosin (Flomax) Take 0.4 mg by mouth 0 Active 0.4 mg Capsule daily. metoprolol succinate Take 37.5 mg by 0 Active XL (Toprol-XL) 25 mg mouth daily. Tablet Sustained Release 24 hr rivaroxaban Take 20 mg by mouth 0 Active (Xarelto) 20 mg daily. Tablet apixaban (Eliquis) 5 Take 5 mg by mouth 2 0 Active mg Tablet times daily. omega-3 acid ethyl Take 2 g by mouth 2 0 Active esters (Lovaza) 1 times daily. gram Capsule Active Problems Problem Noted Date Typical atrial flutter 12/29/2021 Last Assessment & Plan: Formatting of th is note might be different from the original. Mr. Shell presents for evaluation of tachycardia. EKG today notable for 201 atrial flutter, suspicious for clockwise atrial flutter. No prior history of cardiac disease, HI, or cardiac surgery. We discussed management this rhythm. Per h is vital sign checks at home's history of paroxysmal otherwise asymptomatic, though he may be having some worsening shortness of breath due to this arrhythmia. Gi sepideh the concern for potential right atri al flutter I do think an EP study and ablation would be reasonable, however if he would have a left-sided atrial flutter I think management with antiarrhythmic dr sorto may be more patterson. To that end, we wi ll plan for an EP study. If his flutter is found to be right atrial would pursue ablation at that time. If it found a left atrial, rather than pursue transapical access would terminate the procedure at that time, cardiovert, and admit for a sotalol load. We discussed this with him and his family he wishes to proceed this way. At the present time he is in a flutter w ith 2-1 AV block. His vital signs are otherwise normal. Per his home review he is paroxysmal. We will plan on uptitrating his metoprolol succinate to 75 mg daily for further rate control. We did advise him to call us if he develops any worsening shortness of breath, chest discomfort, syncope, or any other symptoms to expedite his evaluation. Type 2 diabetes mellitus 06/25/2016 Encounters Date Type Specialty Care Team Description 02/26/2022 Telephone Cardiology Natali Davison RN 02/19/2022 Telephone Cardiology Carlos Eduardo Quan PA 02/16/2022 Telephone Cardiology Damaris Bowen Pre Procedu re Call RN 02/09/2022 Orders Only Cardiology Carlos Eduardo Quan Persistent at ALISON Morrison fibrillation (P rimary Dx) 01/11/2022 Telephone Cardiology Génesis Giordano RN 01/10/2022 Office Visit Cardiology Ryder Mcadams Persistent at loreto Torres MD fibrillation 01/02/2022 Anesthesia Event Cardiology Jake Baptiste, DO 01/02/2022 Surgery Cardiology Ryder Mcadams ELECTROPHYSIO STAN Torres MD PROCEDURE 01/02/2022 Hospital Encounter General Surgery Ryder Mcadams Atri al fibrillation, MD Melissa unspecified typ e 12/28/[address] [facility] Justina Telles 12/28/2021 Telephone Cardiology Damaris Bowen RN 12/27/2021 Office Visit Cardiology Ryder Mcadams Atrial fibril lation, unspecified type (Primary Dx); MD Melissa Typical atrial flutter Beau Julian MD 12/21/2021 Telephone Cardiology Dora Palacio 12/20/2021 Telephone Cardiology Domenica Bailey LNA from Last 3 Months Social History Tobacco Use Types Packs/Day Years Used Date Never Smoker Smokeless Tobacco: Never Used Sex Assigned at Date Recorded Not on file Last Filed Vital Signs Vital Sign Reading Time Taken Comments Blood Pressure 124/75 01/10/2022 4:08 PM EDT Pulse 97 01/10/2022 4:08 PM EDT Temperature 36.5 ??C (97.7 ??F) 01/02/2022 11:49 AM EDT Respiratory Rate 16 01/02/2022 1:29 PM EDT Oxygen Saturation 96% 01/02/2022 1:29 PM EDT Inhaled Oxygen Concentration - - Weight 115.2 kg (254 lb) 01/10/2022 4:08 PM EDT Height 170.2 cm (5' 7) 01/10/2022 4:08 PM EDT Body Mass Index 39.78 01/10/2022 4:08 PM EDT Plan of Treatment Upcoming Encounters Date Type Specialty Care Team Description 07/11/2022 Office Visit Cardiology Ryder Mcadams MD [facility] CARDIOLOGY DEPT. [place], [place] [address] (Wo rk) Health Maintenance Due Date Last Done Comments Covid-19 Vaccine (#1) 1955 Pneumoccocal Vaccine: 65+ (1 - PCV) 02/18/1956 DM Hemoglobin A1c 02/18/1960 DM Opthalmology Exam 02/18/1960 DM Urine Microalbumin yearly 02/18/1960 Hepatitis C Screening 02/18/1968 Tdap adult 1969 Tetanus vaccine 1969 Colonoscopy 1995 Zoster vaccine (1 of 2) 02/18/2000 Advance Directive 2005 Influenza (Flu) vaccine (1 of 1 - Influenza standard 05/03/2021 series) DM Creatinine yearly 01/02/2023 01/02/2022 Procedures Procedure Name Priority Date/Time Associated Comments Diagnosis EKG 12-LEAD Routine 01/10/2022 4:23 Results for this PM EDT procedure are i n the results section. ECG SCAN 01/08/2022 12:00 Results for this AM EDT procedure are i n the results section. PROJECT INTERN SCAN 01/06/2022 12:00 Res ults for this AM EDT procedure are i n the results section. POCT GLUCOSE Routine 01/02/2022 12:01 Results for this PM EDT procedure are i n the results section. SCAN DOC: TELEMETRY 01/02/2022 10:38 STRIPS AM EDT ELECTROPHYSIOLOGY Routine 01/02/2022 8:27 Atrial Results for this PROCEDURE AM EDT fibrillation, procedure are in unspecified type the results section. DIFFERENTIAL, AUTOMATED Routine 01/02/2022 7:15 Atrial R esults for this AM EDT fibrillation, procedure are in unspecified type the results section. HEMOGRAM Routine 01/02/2022 7:15 Atrial Results for this AM EDT fibrillation, procedure are in unspecified type the results section. BASIC METABOLIC PANEL Routine 01/02/2022 7:15 Atrial Res ults for this (NON-FASTING) AM EDT fibrillation, procedure are in unspecified type the results section. HC CBC,PLT & AUTO DIFF Routine 01/02/2022 7:15 Atrial AM EDT fibrillation, unspecified type POCT GLUCOSE Routine 01/02/2022 6:51 Results for this AM EDT procedure are i n the results section. LAB SCAN 12/29/2021 12:00 Results for this AM EDT procedure are i n the results section. EKG 12-LEAD Routine 12/27/2021 10:55 Atrial Results for this AM EDT fibrillation, procedure are in unspecified type the results section. ECG SCAN 12/19/2021 12:00 Results for this AM EDT procedure are i n the results section. ECHO SCAN (SCAN) 12/12/2021 12:00 Results for this AM EDT procedure are i n the results section. DIAGNOSTIC RADIOLOGY SCAN 11/29/2021 12:00 Results for this AM EDT procedure are i n the results section. from Last 3 Months Results EKG 12 Lead (01/10/2022 4:23 PM EDT)Only the most recent of2 resultswithin the time period is included. Component Value Ref Range Test Analysis Performed Pathologis t Method Time At Signature Ventricular rate 94 BPM MUSE SYSTEM Atrial Rate 104 BPM MUSE SYSTEM QRS Duration 88 ms MUSE SYSTEM Q-T Interval 364 ms MUSE SYSTEM QTC Calculated 455 ms MUSE SYSTEM (Bezet) Calculated R Sturgeon -18 degrees MUSE SYSTEM Calculated T Sturgeon 7 degrees MUSE SYSTEM INTERPRETATION Atrial fibrillation MUSE SYSTEM Inferior infarct , age undetermined Abnormal ECG When compared with ECG of 27-DEC-2021 10:55, Previous ECG has undetermined rhythm, needs review Confirmed by MD Cole, [place] ([id number]) on 01/24/2022 11:10:4 1 AM Specimen Anatomical Collection Method Collection Time Receive d Time (Source) Location / / Volume Laterality 01/10/2022 4:23 PM EDT 11:10 AM EDT Unknown ECG ORDERABLES Performing Organization Address City/State/ZIP Code Phon e Number MUSE SYSTEM SCAN DOC: ECG (01/08/2022 12:00 AM EDT)Only the most recent of2 resultswithin the time period is included. Narrative This result has an attachment that is no t available. Unknown MEDIA MGR SCAN EXT ORDR/RSLT SCAN DOC: PROJECT INTERN (01/06/2022 12:00 AM EDT) Narrative This result has an attachment that is no t available. Unknown MEDIA MGR SCAN EXT ORDR/RSLT POCT Glucose (01/02/2022 12:01 PM EDT)Only the most recent of2 resultswithin the time period is included. P athologist Signature POC Glucose 144 65 - 199 [facility] LABORATORY Comment: Supplemental ranges: <140 mg/dL before meals <180 mg/dL all other times of the day Specimen Anatomical Collection Method Collection Time Receive d Time (Source) Location / / Volume Laterality Blood 01/02/2022 12:01 01/02/2022 PM EDT 12:01 PM EDT Ryder Mcadams MD POINT OF CARE TEST ORDERABLE S Performing Organization Address City/State/[place] [address] SCAN DOC: TELEMETRY STRIPS (01/02/2022 10:38 AM EDT) Narrative This result has an attachment that is no t available. Unknown MEDIA MGR SCAN EXT ORDR/RSLT ELECTROPHYSIOLOGY PROCEDURE (01/02/2022 8:27 AM EDT) Specimen (Source) Anatomical Location Collection Method / Collectio n Time Received Time / Laterality Volume Impressions Ryder Mcdaams MD - 01/06/2022 11:53 AM EDT : ? ? Successful ablation of typical atrial flutter DISCUSSION: 1. Continue metoprolol succinate at 75 m g daily. 2. Continue apixaban 5mg twice daily for anticoagulation. 3. Follow up in clinic with either Dr. Melissa loving or Dr. Mcadams. I was the suppository molding machine operator for the proce dure, present for the entire procedure and personally edited this not e RYDER MCADAMS MD Narrative Ryder Mcadams MD - 01/06/2022 11:53 AM EDT Ablation of Atrial flutter: Electrophysi ology Study, Mapping (CARTO), Cardioversion, Ablation Indication: Symptomatic atrial flutter [employer] Fighter: Ryder Mcadams MB.Ch B. Fellow: Beau Julian MD Procedure: The patient was brought to [facility] Elect[facility]iology Laboratory in the fasting sedated state. ??Continuous electrocardiographic monitoring was instituted. General anest hesia was delivered by our anesthesia colleagues. Both groins were prepped and draped in the usual sterile fashion and 2% lidocaine with 0. 5 % bupivicaine in a 2:3 mixture was instilled for local anesthesia in th e right groin. ??Venous access was obtained using [...] performed as detailed below and stored on [employer]. ??At the termination of the procedure the [...] the ' 6 o'clock ' position in PUERTO RICAN projection. Ca re was taken to stay [...] lesion set. Intervals: Cycle length: 724 ms AK 172 ms QRS 93 ms QT 344 ms HV 54 ms (taken in atrial flutter) Conduction AVWB 320ms AERP 600/220ms AVNERP <600/220ms Ryder Mcadams MD EP PROCEDURE ORDERABLES (ABNORMAL) Hemogram (01/02/2022 7:15 AM EDT) Analysis Performed At Patho logist Time Signature WBC 8.8 4.0 - 9.5 [facility] PAT x10(3)/[facility] LABORATORY RBC 4.42 (L) 4.58 - NATALI PAT 5.54 [facility] x10(6)/[facility] LABORATORY Hemoglobin 14.0 13.7 - NATALI PAT 16.5 g/dL [facility] LABORATORY Hematocrit 42.5 40.5 - NATALI PAT 48.5 % [facility] LABORATORY MCV 96.2 (H) 82.9 - NATALI PAT 93.1 [facility] LABORATORY MCH 31.7 27.5 - [email or web address] 32.1 pg [facility] LABORATORY MCHC 32.9 32.0 - NATALI PAT 35.7 g/dL [facility] LABORATORY Platelets 179 145 - 357 NATALI [employer] x10(3)/[facility] LABORATORY RDWSD 46.4 (H) 36.0 - [email or web address] 45.0 [facility] LABORATORY RDWCV 13.1 11.4 - [email or web address] 13.8 % [facility] LABORATORY MPV 11.3 7.6 - 12.9 [employer]ACK [facility] LABORATORY nRBC % Auto 0.0 % [facility] LABORATORY nRBC Abs Auto 0.000 0.000 - [facility] 0.000 [facility] x10(3)[facility] LABORATORY Specimen Anatomical Collection Method Collection Time Receive d Time (Source) Location / / Volume Laterality Blood 01/02/2022 7:15 AM 7:32 EDT AM EDT Resulting Agency Comment Spec In Lab Beau Julian MD HEMATOLOGY ORDERABLES Performing Organization Address City/State/[place] [address] Differential, Automated (01/02/2022 7:15 AM EDT) athologist Signature Neutrophils % 60.2 % [facility] LABORATORY Neutr Abs (ANC) 5.32 1.70 - [facility] 6.10 [facility] x10(3)[facility] LABORATORY Lymphocytes % 25.6 % [facility] Lymphocytes Abs 2.3 0.9 - 3.2 [facility] x10(3)[facility] LABORATORY Monocytes % 10.5 % [facility] Monocyte Abs 0.9 0.3 - 0.9 [facility] x10(3)[facility] LABORATORY Eosinophils % 2.6 % [facility] LABORATORY Eosinophils Abs 0.2 0.0 - 0.4 [facility] x10(3)[facility] LABORATORY Basophils % 0.8 % [facility] LABORATORY Basophils Abs 0.1 0.0 - 0.1 [facility] x10(3)[facility] LABORATORY Immature Gran % 0.30 % [facility] LABORATORY Comment: Immature granulocytes(IG's)percentage an d absolute count will include metamyelocytes, myelocytes, and promyelo cytes. Blood smears from CBCs yielding IG's will be scanned manually for concor dance. If this scan disagrees with the automated IG or if promyelocytes are not ed, a manual differential will be performed. Nini Gran Abs 0.03 0.00 - 0.04 x10(3)/[facility] LABORATORY Specimen Anatomical Collection Method Collection Time Receive d Time (Source) Location / / Volume Laterality Blood 01/02/2022 7:15 AM 7:32 EDT AM EDT Resulting Agency Comment Spec In Lab Beau Julian MD HEMATOLOGY ORDERABLES Performing Organization Address City/State/[place] [address] (ABNORMAL) Basic Metabolic Panel (non-fasting) (01/02/2022 7:15 AM EDT) P athologist Signature Glucose Lvl 200 (H) 65 - 199 [facility] mg/dL [facility] LAB[facility] Comment: Diabetes: >=200 mg/dL plus symp toms BUN 18 10 - 20 mg/dL [facility] LABORATORY Creatinine 0.89 0.80 - 1.50 mg/dL [facility] LABORATORY Sodium 140 135 - 145 mmol/L [facility] LABORATORY Potassium 4.5 3.5 - 5.0 mmol/L [facility] LABOR[facility] Comment: Please note: ??Patients with WBC >100,00 0 may have falsely elevated Potassium levels. ??For accurate Potassium quantif ication in these patients send serum separator tube (gold top) for subsequent determinations. ??Contact the Clinical Chemistry Laboratory if there are any qu estions. Chloride 105 98 - 107 mmol/L [facility] LABORATORY CO2 23 22 - 31 mmol/L [facility] Anion Gap 12 5 - 15 mmol/L [facility] LABOR[facility]ORY Calcium 9.1 8.5 - 10.5 mg/dL [facility] LABOR[facility] Estimated GFR 86 >=60 mL/min/1.73 m?? [facility] LABOR[facility] Comment: This patient? s estimated glomerular [...] Resulting Agency Comment Spec In Lab Ryder Mcadams MD CHEMISTRY ORDERABLES Performing Organization Address City/State/[place] [address] SCAN DOC: LAB (12/29/2021 12:00 AM EDT) Narrative This result has an attachment that is no t available. Unknown MEDIA MGR SCAN EXT ORDR/RSLT SCAN DOC: ECHO (12/12/2021 12:00 AM EDT) Narrative This result has an attachment that is no t available. Unknown MEDIA MGR SCAN EXT ORDR/RSLT SCAN DOC: DIAGNOSTIC RADIOLOGY (11/29/2021 12:00 AM EDT) Narrative This result has an attachment that is no t available. Unknown MEDIA MGR SCAN EXT ORDR/RSLT from Last 3 Months Insurance Payer Benefit Plan / Subscriber ID Effective Phone Address T ype Group Dates MEDICARE MEDICARE PART [id number] 2021-Prese [phone] [facility] [place] [id number] [employer] [id number] 2019-Prese [address] [facility] [place] [address] [place] [address] Advance Directives Latest Code Status on File Code Status Date Activated Date Inactivated Comments Attempt Cardiopulmonary Resuscitation - 01/02/2022 7:11 AM 2 4:35 PM Inpatient Code Status decision made by: Patient Care Teams Rn Patient Services Relationship Specialty Start Date End Date Domenica Atkins, ASSISTANT PROFESSOR OF ARCHAEOLOGY PCP - General Family Medicine 11/21/21 [address] [place] [address]
--- OUTSIDE RECORDS SUMMARY | 2022-02-27 16:08 | XMS_ITS | Encounter Summary ---
:1950 [address] [facility] [place] [address] Care Team Providers Name Role Phone RayDomenica tate Dayron AGUILAR Primary Care Provider Encounter Details Date Type Department Care Team Description 02/26/2022 Telephone Cardiology at [facility] Natali Davison, [place] [address] Social History Tobacco Use Types Packs/Day Years Used Date Never Smoker Smokeless Tobacco: Never Used Sex Assigned at Date Recorded Not on file documented as of this encounter Miscellaneous Notes Telephone Encounter - Natali Davison, RN - 02/26/2022 4:53 PM EDT RTC to Ms Gonsales regarding her Hot Call message stating her Step Father is struggling, that his color is rinaldi, and he is having Shortness of Breath. She states he would like to have the Sotalol Drug load. Let her know that at this time he needs to be seen in the ER, and there is not an emergency Medication load, there is an emergency Cardioversion, as well, as emergency medications. Let Ms Gonsales know her message will be forwarded to ALISON Gil, and to our Barn And Property Manager,as her father would like to be rescheduled. Left a voicemail message on patient's cell phone reaching out to him after his request for provider to call back regarding canceled sotalol drug load in the setting of recently missed Xarelto and persistent atrial fibrillation. ?? Reiterated on voicemail the importance of not missing oral anticoagulation for three weeks prior to drug load due to the high risk of thromboembolism resulting from pharmacologic cardioversion and potential development of clot with interruption of blood thinner. Unfortunately, do not have capacity to schedule a last minute SYDNEY due to anesthesia unavailability. ?? Stated that we would be happy to reschedule him for a future date. Asked him to call me back with any questions or concerns. ? Carlos Eduardo Quan PA-C 02/19/2022 Natali Davison (Jodie), RN, BSN Cardiology [facility] documented in this encounter Plan of Treatment Upcoming Encounters Date Type Specialty Care Team Description 07/11/2022 Office Visit Cardiology Curtis Arredondo MD [facility] ER [address] CARDIOLOGY DEPT. [place], [place] [address] (Wo rk) documented as of this encounter Visit Diagnoses Not on filedocumented in this encounter Care Teams Traffic Court Referee Relationship Specialty Start Date End Date Domenica Atkins, TRASHMAN PCP - General Family Medicine 11/21/21 [address] [place] [address] documented as of this encounter
--- OUTSIDE RECORDS SUMMARY | 2022-02-27 16:08 | XMS_ITS | Encounter Summary ---
:1950 Author Organization [facility] [address] Care Team Providers Name Role Phone Domenica Atkins APRN Primary Care Provider Reason for Visit Auth/Cert Specialty Diagnoses / Procedures Referred By Contact Refer red To Contact Diagnoses Atrial fibrillation, unspecified type [I48.91] Procedures ELECTROPHYSIOLOGY PROCEDURE Referral ID Status Reason Start Date Expiration Date Visits Requ ested Visits Authorized [id number] 1 1 Encounter Details Date Type Department Care Team Description 01/02/2022 Anesthesia Event Electrophysiology Lab at Jamil Baptiste eliud [facility], [place] [address] CENTER [phone] ANESTHESIOLOGY [place], [place] [address] Anesthesia Record Procedure Summary Procedure Name Responsible Anesthesia Start Anesthesia Stop Anesthesiologist Time Time ELECTROPHYSIOLOGY Emile Jake DO Ly 01/02/22 0739 01/02/22 1040 PROCEDURE (N/A ) Events Date Time Event Comment 01/02/2022 0721 0739 Start 0742 AN Verify 0742 An Start Data 0752 An Induction 0755 An Intubation 0809 Anesthesia Ready 0824 Procedure Start 0839 AN Defib 200 J 1019 Extubation/LMA Out Patient takin g adequate tidal volumes (>300ml), coughi ng on ETT. Opens eyes to command. Orophar ynx suctioned, ETT removed, spontaneous vent ilations maintained. 1030 an stop data 1039 Recovery or ICU Handoff Patient care was transferred to the destination unit staff after review of the patient's medica l history, current anesthetic/surgi clinton status and plan, according to the Provider Handoff Checklist. 1040 Stop Patient brought to recovery with 6L/min O2 via face mask. S pontaneous ventilations maintained. Tomasa ent opening eyes to voice, resting comforta raulito. Name Total IV Lidocaine 100 mg Propofol 350 mg Rocuronium 100 mg PHENYLephrine 1,440 mcg Ondansetron 8 mg Neostigmine 5 mg Glycopyrrolate 0.8 mg Propofol INF 371.25 mg PHENYLephrine INF 6,540 mcg Heparin 7,500 Units DOBUTamine INF 9 mg lactated ringers infusion 500 mL Lactated Ringers 600 mL Agents Name O2 Air N2O Sevoflurane (et) Blood No blood administrations on file. Lines, Drains, and Airways Type Details Placement Removal PIV 01/02/22; 0715; median 01/02/22 0715 by 01/02/22 1401 by cubital vein (antecubital Simone Enriquez, RN Luz Woodall, fossa), left; RN [id number] catheter system; Anatomical Landmarks; 20 gauge; Tato Enriquez RN; distraction, tolerated well, appears comfortable; 0; 01/02/22; 1401 ETT Mask Ventilation: Adjunct 01/02/22 0755 by 01/02 1019 by (2) (100mm opa); ETT Malu Erazo, Malu Erazo, Type: Cuffed, Oral; ETT CRISIS MANAGER CRISIS MANAGER Size: 8 mm; Mac Blade: 4; Notes: Asleep, Pre-O2, Stylette; Attempts: 1; Laryngoscopy Grade: 1; ETT Placement Verified By: Auscultation, Capnometry; Secured at Teeth: 22 cm; Inserted by: Cullen Erazo CRISIS MANAGER PIV 01/02/22; 0759; dorsal 01/02/22 0759 by 01/02/22 1401 by arch vein (top of hand), Malu Erazo, Luz Hu, right; [id number] CRISIS MANAGER RN catheter system; 16 gauge; MD Emile; 01/02/22; 1401 Arterial Line 01/02/22; 0807; radial 01/02/22 0807 by 01/02/22 1401 by artery, left; 20 gauge; Malu Erazo, Luz Moore, Anatomical Landmarks; GEOVANNI RN continuous blood pressure monitoring; V Kacey CRISIS MANAGER; Sterile Prep, Sterile Gloves; 01/02/22; 1401 LDA Cath/EP Sheath 01/02/22; 0836; 7 Eritrean 01/02/22 0836 by Josh b, 01/02/22 1005 by (Fr); Right; Femoral; JAX Valdez, Osiel Padgett RN Venous LDA Cath/EP Sheath 01/02/22; 0837; 8.5 01/02/22 0837 by Dana, 1006 by Eritrean (Fr); Right; JAX Valdez Erica K, RN Femoral; Venous documented in this encounter Social History Tobacco Use Types Packs/Day Years Used Date Never Smoker Smokeless Tobacco: Never Used Sex Assigned at Date Recorded Not on file documented as of this encounter OR Notes Anesthesia Postprocedure Evaluation - Jake Baptiste DO - 01/02/2022 3:07 PM EDT Department of Anesthesiology Post-procedure Note Patient: Wilber Shell Procedure Summary Date: 01/02/22 Room / Location: [facility] A-LAB ROOM [address] [place] [address] EP LABS Anesthesia Start: 0739 Anesthesia Stop: 1040 Procedure: ELECTROPHYSIOLOGY PROCEDURE (N/A ) Diagnosis: Atrial fibrillation, unspecified type (Atrial fibrillation, unspecified type [I48.91]) Providers: Curtis Arredondo MD Responsible Provider: Jake Baptiste DO Anesthesia Type: general ASA Status: 2 All Anesthesia Providers: Anesthesiologist: Jake Baptiste DO CRISIS MANAGER: Malu Erazo CRNA Vitals Value Taken Time BP 93/60 01/02/22 1130 Temp 36.9 ??C (98.4 ??F) 01/02/22 1130 Pulse 69 01/02/22 1142 Resp 13 01/02/22 1142 SpO2 93 % 01/02/22 1142 Pain Level 0 01/02/22 1130 Vitals shown include unvalidated device data. Patient Location: PACU/SDP Level of Consciousness: Conscious but Sleepy Pain Management: Satisfactory Analgesia PONV: None Cardiovascular Status: At Baseline and Hemodynamically Stable Respiratory Status: At Baseline and Room Air Postoperative Fluid Status: Intravascular EUvolemia Possible Anesthetic Complications: NONE apparent at time of evaluation Final Primary Anesthesia Type: General (The anesthetic type performed was the same as planned.) Comments: Jake Baptiste DO Anesthesia Preprocedure Evaluation - Jake Baptiste DO - 01/01/2022 2:36 PM EDT Pre-Anesthesia Evaluation for: Wilber Shell a 71 y.o. male. Procedure(s): ELECTROPHYSIOLOGY PROCEDURE Patient Active Problem List Diagnosis Date Noted ??? Typical atrial flutter 12/29/2021 No past medical history on file. No past surgical history on file. Social History Tobacco Use ??? Smoking status: Never Smoker ??? Smokeless tobacco: Never Used Substance Use Topics ??? Alcohol use: Not on file Social History Substance and Sexual Activity Drug Use Not on file No Known Allergies Medications: MAR and/or home medications have been reviewed. Physical Exam: Preprocedure Vitals Current as of 01/01/22 1436 No BP, pulse, respiration, SpO2, or temperature recorded. Height: 170.2 cm (5' 7) (12/27/21) Weight: 112.9 kg (248 lb 12.8 oz) (12/27/21) BMI: 38.96 IBW: 66.1 kg (145 lb 12.2 oz) Airway Assessment: Mallampati: II Cardiovascular Assessment: system normal Pulmonary Assessment: pulmonary exam normal Dental Assessment: (+) edentulous Misc Assessment: Last Filed Perioperative Cognitive Screening None Anesthesia Plan: ASA 2 general, 71 yo male w/ aflutter s/f ablation Hx IDDM (took half daily dose of insulin last night), GERD, HTN, on eliquis Normal function and normal valves on most recent echo No prior anesthetic issues NPO Plan for GA w/ ETT, arterial line Informed Consent: Anesthesia Screening documented in this encounter Plan of Treatment Upcoming Encounters Date Type Specialty Care Team Description 07/11/2022 Office Visit Cardiology Curtis Arredondo MD [facility] CARDIOLOGY DEPT. [place], [place] [address] (Wo rk) documented as of this encounter Visit Diagnoses Not on filedocumented in this encounter Administered Medications Inactive Administered Medications - up to 3 most recent administrations Medication Order MAR Action Action Date Dose Rate Site DOBUTamine (Dobutrex) New Bag 01/02/2022 9:35 AM 5 mcg/kg/min 16.8 75 mL/hr (2,000 mcg/mL) in EDT dextrose 5% 250 mL infusion Intravenous, CONTINUOUS PRN, Starting on Sat01/02/22 at 0935, Until Sat01/02/22 at 1042, Anesthesia Intra-op glycopyrrolate (Robinul) (0.2 mg/mL) Given 01/02/2022 10:02 AM E DT 0.8 mg multi-dose injection Intravenous, PRN, Starting on Sat01/02/22 at 1002, Until Sat01/02/22 at 1042, Anesthesia Intra-op, Routine heparin (porcine) (1,000 units/mL) Given 01/02/2022 9:05 AM EDT 2,500 Units injection Intravenous, PRN, Starting on Sat01/02/22 at 0838, Until Sat01/02/22 at 1042, Anesthesia Intra-op, Routine Given 01/02/2022 8:38 AM EDT 5,000 Units lactated ringers infusion New Bag 01/02/2022 7:39 AM EDT 1,000 mL, at 100 mL/hr, Intravenous, CONTINUOUS, Starting on Sat01/02/22 at 0715, Until Sat01/02/22 at 1139, Day of Surgery (Day of Procedure) lactated ringers infusion New Bag 01/02/2022 8:06 AM EDT Intravenous, CONTINUOUS PRN, Starting on Sat01/02/22 at 0806, Until Sat01/02/22 at 1042, Anesthesia Intra-op lidocaine (pf) (Xylocaine) (20 mg/mL) 2% Given 01/02/2022 7:52 A M EDT 100 mg injection syringe Intravenous, PRN, Starting on Sat01/02/22 at 0752, Until Sat01/02/22 at 1042, Anesthesia Intra-op, Routine neostigmine (Bloxiver) (1 mg/mL) injecti on Given 01/02/2022 10:02 AM EDT 5 mg Intravenous, PRN, Starting on Sat01/02/22 at 1002, Until Sat01/02/22 at 1042, Anesthesia Intra-op, Routine ondansetron (pf) (Zofran) (2 mg/mL) inje ction Given 01/02/2022 10:02 AM EDT 8 mg Intravenous, PRN, Starting on Sat01/02/22 at 1002, Until Sat01/02/22 at 1042, Anesthesia Intra-op, Routine PHENYLephrine (Hung-Synephrine) Rate/Dose Change 01/02/2022 10:10 20 mcg/min 15 mL/hr (80 mcg/mL) in sodium chloride AM EDT 0.9% 250 mL infusion Intravenous, CONTINUOUS PRN, Starting on Sat01/02/22 at 0836, Until Sat01/02/22 at 1042, Anesthesia Intra-op, Routine Rate/Dose Change 01/02/2022 10:08 AM EDT 40 mcg/min 30 mL/hr Rate/Dose Change 01/02/2022 9:17 AM EDT 80 mcg/min 60 mL/hr PHENYLephrine in NS (PF) (HUNG-SYNEPHRINE) Given 01/02/2022 1 0:01 AM EDT 160 mcg 0.8 mg/10 mL (80 mcg/mL) multi-dose injection Syrg Intravenous, PRN, Starting on Sat01/02/22 at 0814, Until Sat01/02/22 at 1042, Anesthesia Intra-op, Routine Given 01/02/2022 9:19 AM EDT 160 mcg Given 01/02/2022 8:45 AM EDT 160 mcg propofoL (Diprivan) (10 mg/mL) New Bag 01/02/2022 8:12 AM 30 m cg/kg/min 20.25 mL/hr infusion EDT Intravenous, CONTINUOUS PRN, Starting on Sat01/02/22 at 0812, Until Sat01/02/22 at 1042, Anesthesia Intra-op, Routine propofoL (Diprivan) 10 mg/mL bolus injection Given 9:58 AM EDT 50 mg (Anesthesia) Intravenous, PRN, Starting on Sat01/02/22 at 0752, Until Sat01/02/22 at 1042, Anesthesia Intra-op Given 01/02/2022 9:56 AM EDT 50 mg Given 01/02/2022 7:55 AM EDT 50 mg rocuronium (Zemuron) (10 mg/mL) multi-dose Given 01/02/2022 7:52 AM EDT 100 mg injection Intravenous, PRN, Starting on Sat01/02/22 at 0752, Until Sat01/02/22 at 1042, Anesthesia Intra-op, Routine documented in this encounter Care Teams Technical Associate Relationship Specialty Start Date End Date Domenica Atkins, BUS DISPATCHER INTERSTATE PCP - General Family Medicine 11/21/21 [address] [place] [address] documented as of this encounter
--- OUTSIDE RECORDS SUMMARY | 2022-02-27 16:09 | XMS_ITS | Encounter Summary ---
:1950 Author Organization [facility] [place] [address] Care Team Providers Name Role Phone Domenica Atkins LAUREN Primary Care Provider Reason for Referral Consultation (Urgent) - Authorized Specialty Diagnoses / Referred By Referred To Cont act Procedures Contact Electrophysiology / Diagnoses Atrial fibrillation, unspecified type Atrial flutter, unspecified type afib, aflutter Evan Guzman, [facility] Cardiology 4a Cardiology [address] [facility] [id number] Phone: Phone: Referral ID Status Reason Start Date Expiration Visits Visits Date Requested Authorized [id number] Authorized Consult, 11/21/2021 11/21/2022 6 6 Test & Treat Encounter Details Date Type Department Care Team Description 11/21/2021 Transcribe Orders eDH Incoming Evan Guzman, Atrial fibrillation, unspecified type; Referrals Atrial flutter, unspecified type [phone] [place] [address] [address] [place], [place] [id number] Social History Tobacco Use Types Packs/Day Years Used Date Never Assessed Sex Assigned at Date Recorded Not on file documented as of this encounter Plan of Treatment Upcoming Encounters Date Type Specialty Care Team Description 07/11/2022 Office Visit Cardiology Curtis Arredondo MD [facility] CARDIOLOGY DEPT. [place], [place] [address] (Wo rk) Scheduled Referrals Name Type Priority Associated Order Schedule Diagnoses Referral to Cardiac Outpatient Routine Atrial Ordered: Electrophysiology Referral fibrillation, 2 unspecified type Atrial flutter, unspecified type documented as of this encounter Visit Diagnoses Diagnosis Atrial fibrillation, unspecified type Atrial flutter, unspecified type documented in this encounter Care Teams Operations Officer Afloat Relationship Specialty Start Date End Date Domenica Atkins APRN PCP - General Family Medicine 11/21/21 [address] [place] [address] documented as of this encounter
--- OUTSIDE RECORDS SUMMARY | 2022-02-27 16:09 | XMS_ITS | Encounter Summary ---
:1950 [address] [facility] [place] [address] Care Team Providers Name Role Phone Domenica Atkins APRN Primary Care Provider Encounter Details Date Type Department Care Team Description 12/20/2021 Telephone Cardiology [place] [facility] [facility] [place] [phone] Social History Tobacco Use Types Packs/Day Years Used Date Never Assessed Sex Assigned at Date Recorded Not on file documented as of this encounter Miscellaneous Notes Telephone Encounter - Domenica Bailey LNA - 12/20/2021 10:39 AM EDT *Left message asking patient to bring an updated medication list for their upcoming Clinic Visit on 12/27/[address] Julian. *Labs are in with ED notes of [facility] in Media (11/21). *Return Call from patient: *He has had other testing since ED Visit in 11/21. These testings were completed at [facility] as well: *Echo at [facility] recently 12/12 *Holter just turned in most likely will be unavailable for visit he stated. *Ekg 12/22 *Xray of heart 12/22 *Indu Iqbal Accounts Receivable Accountant, recent Consultation documented in this encounter Plan of Treatment Upcoming Encounters Date Type Specialty Care Team Description 07/11/2022 Office Visit Cardiology Curtis Arredondo MD [facility] ER CARDIOLOGY DEPT. [place], [place] [address] (Wo rk) documented as of this encounter Visit Diagnoses Not on filedocumented in this encounter Care Teams Licensed Clinical Social Worker Relationship Specialty Start Date End Date Domenica Atkins, OPERATIONS ANALYST PCP - General Family Medicine 11/21/21 [address] [place] [address] documented as of this encounter
--- OUTSIDE RECORDS SUMMARY | 2022-02-27 16:09 | XMS_ITS | Encounter Summary ---
:1950 Author Organization [facility] [place] [address] Care Team Providers Name Role Phone Domenica Atkins LAUREN Primary Care Provider Encounter Details Date Type Department Care Team Description 12/28/2021 Telephone Cardiology at [facility] Damaris Bowen, [place] [phone] Social History Tobacco Use Types Packs/Day Years Used Date Never Smoker Smokeless Tobacco: Never Used Sex Assigned at Date Recorded Not on file documented as of this encounter Miscellaneous Notes Telephone Encounter - Damaris Bowen RN - 12/28/2021 3:16 PM EDTSummary: Pre Procedure Call: AFlutter Ablation EP ELECTRICIAN APPRENTICE COORDINATION CHECKLIST TC to pt to relay pre procedure instructions. Unable to reach at number on file. LVM asking for callback at earliest convenience. Also sent instructions to active Patient Portal via [employer] message Patient Name: Wilber Shell Patient Performing Perl Software Engineer: Curtis Arredondo Referring Provider: N/A Date of Procedure: 01/02/22 Arrival Time/ Case Time: 6:30 am / 7:30 am Check In Location: Tax Revenue Officer Desk 4W Date Patient was Called: 12/28/21 Procedure: Atrial Flutter Ablation Company: [employer] Orders: Yes Lab Orders: Yes Anesthesia: GA Discharge Plan/Disposition: OVERNIGHT/SSU Med Instructions: BB/CCB - hold metoprolol the AM of procedure Anticoag Type: Eliquis (apixaban) Anticoag Instructions: Hold Eliquis the AM of procedure Imaging: [place] on day of procedure COVID TEST?: Yes - contact COVID hotline Contrast Allergy: No DM: Yes Instructions for DM medications: Hold metformin & glimepiride the AM of procedure, take half dose of insulin PM before procedure Coming from an assisted living facility?: No Any recent S/S of infection (fevers, on oral ABX)?: No Other Instructions: Clear liquids (water, apple juice, joise gerry) OK up until 2 hrs prior to procedure, nothing to eat after midnight on day of procedure.Same Day will call 01/01/22. If applicable will bring CPAP from home. Will be staying overnight , understands that they will need pile driver operator on day of discharge Notified pt that Saez catheter may be placed on day of procedure depending on type & duration of case. documented in this encounter Plan of Treatment Upcoming Encounters Date Type Specialty Care Team Description 07/11/2022 Office Visit Cardiology Curtis Arredondo MD [facility] CARDIOLOGY DEPT. [place], [place] [address] (Wo rk) documented as of this encounter Visit Diagnoses Not on filedocumented in this encounter Care Teams Billboard Installer Relationship Specialty Start Date End Date Domenica Atkins APRN PCP - General Family Medicine 11/21/21 [address] [place] [address] documented as of this encounter
--- OUTSIDE RECORDS SUMMARY | 2022-02-27 16:09 | XMS_ITS | Encounter Summary ---
:1950 [place] [address] Care Team Providers Name Role Phone Domenica Atkins APRN Primary Care Provider Reason for Visit Auth/Cert Specialty Diagnoses / Procedures Referred By Contact Refer red To Contact Diagnoses Atrial fibrillation, unspecified type [I48.91] Procedures ELECTROPHYSIOLOGY PROCEDURE Referral ID Status Reason Start Date Expiration Date Visits Requ ested Visits Authorized [id number] 1 1 Encounter Details Date Type Department Care Team Description 01/02/2022 Hospital Encounter Same Day Program at [facility] Atrial fibrillation, Natali Torres MD unspecified type [facility] [address] [place] [phone] Social History Tobacco Use Types Packs/Day Years Used Date Never Smoker Smokeless Tobacco: Never Used Sex Assigned at Date Recorded Not on file documented as of this encounter Last Filed Vital Signs Vital Sign Reading Time Taken Comments Blood Pressure 102/69 01/02/2022 1:03 PM EDT Pulse 69 01/02/2022 1:29 PM EDT Temperature 36.5 ??C (97.7 ??F) [...] as prescribed. 2. Follow up with Dr. Mcadams or Eliel in 2-3 months. You will [...] of any new medications [facility] at [facility]. The patient should be aware and [...] his/her physician or the Cardiac Electrophysiology Service ([phone]). documented in this encounter Medications at Time [...] maintained at 30 degrees or less. Ryder Mcadams MD - 01/02/2022 7:10 AM EDT Images [...] 3 mg 0.3 mL Subcutaneous Once PRN Jake Baptiste, DO ??? lactated ringers infusion 1,000 mL Intravenous Continuous EmileJake M, DO PAST SURGICAL HISTORY: No past [...] upon the findings of the EPS RYDER MCADAMS MD documented in this encounter Plan of Treatment Upcoming Encounters Date Type Specialty Care Team Description 07/11/2022 Office Visit Cardiology Ryder Mcadams MD [facility] ER DR CARDIOLOGY DEPT. [place] [id number] (Wo rk) documented as of this encounter [...] Signature POC Glucose 144 65 - 199 [facility] mg/dL [facility] Comment: Supplemental ranges: <140 mg/dL before meals <180 mg/dL all other times of the day Specimen Anatomical Collection Method Collection Time Receive d Time (Source) Location / / Volume Laterality Blood 01/02/2022 12:01 01/02/2022 PM EDT 12:01 PM EDT Ryder Mcadams MD POINT OF CARE TEST ORDERABLE S Performing Organization Address City/State/ZIP [place] [address] ELECTROPHYSIOLOGY PROCEDURE (01/02/2022 8:27 AM EDT) Specimen (Source) Anatomical Location Collection Method / Collectio n Time Received Time / Laterality Volume Impressions Ryder Mcadams MD - 01/06/2022 11:53 AM EDT : ? ? Successful ablation of typical atrial flutter DISCUSSION: 1. Continue metoprolol succinate at 75 m g daily. 2. Continue apixaban 5mg twice daily for anticoagulation. 3. Follow up in clinic with either Dr. Melissa loving or Dr. Mcadams. I was the manager primary for the proce deny, present for the entire procedure and personally edited this not e RYDER MCADAMS MD Narrative Ryder Mcadams MD - 01/06/2022 11:53 AM EDT Ablation of Atrial flutter: Electrophysi ology Study, Mapping (CARTO), Cardioversion, Ablation Indication: Symptomatic atrial flutter Dealer Development Manager: Ryder WAGONER. B. Fellow: Beau Julian MD Procedure: The patient was brought to [facility] biplane Electrophysiology Laboratory in the fasting sedated state. ??Continuous electrocardiographic monitoring was instituted. General anest hesia was delivered by our anesthesia colleagues. Both groins were prepped and draped in the usual sterile fashion and 2% lidocaine with 0. 5 % bupivicaine in a 2:3 mixture was instilled for local anesthesia in [facility] right groin. ??Venous access was obtained [...] performed as detailed below and stored on Traffline. ??At the termination of the procedure the [...] the ' 6 o'clock ' position in IRISH projection. Ca re was taken to stay [...] lesion set. Intervals: Cycle length: 724 ms OR 172 ms QRS 93 ms QT 344 ms HV 54 ms (taken in atrial flutter) Conduction AVWB 320ms AERP 600/220ms AVNERP <600/220ms Ryder Mcadams MD EP PROCEDURE ORDERABLES Differential, Automated (01/02/2022 7:15 AM EDT) P athologist Signature Neutrophils % 60.2 % [facility] Neutr Abs (ANC) 5.32 1.70 - [facility] 6.10 [facility] x10(3)/[facility] LABORATORY Lymphocytes % 25.6 % [facility] Lymphocytes Abs 2.3 0.9 - 3.2 [facility] x10(3)/[facility] LABORATORY Monocytes % 10.5 % [facility] Monocyte Abs 0.9 0.3 - 0.9 [place] 940770(3)/[facility] LABORATORY Eosinophils % 2.6 % [facility] Eosinophils Abs 0.2 0.0 - 0.4 [facility] x10(3)/[facility] LABORATORY Basophils % 0.8 % [facility] Basophils Abs 0.1 0.0 - 0.1 [place] 940770(3)/[facility] LABORATORY Immature Gran % 0.30 % [facility] Comment: Immature granulocytes(IG's)percentage an d absolute count will include metamyelocytes, myelocytes, and promyelo cytes. Blood smears from CBCs yielding IG's will be scanned manually for concor dance. If this scan disagrees with the automated IG or if promyelocytes are not ed, a manual differential will be performed. Nini Gran Abs 0.03 0.00 - 0.04 x10(3)/[facility] LABOR[facility] Specimen Anatomical Collection Method Collection Time Receive d Time (Source) Location / / Volume Laterality Blood 01/02/2022 7:15 AM 7:32 EDT AM EDT Resulting Agency Comment Spec In Lab Beau Julian MD HEMATOLOGY ORDERABLES Performing Organization Address City/State/[place] [address] (ABNORMAL) Hemogram (01/02/2022 7:15 AM EDT) Analysis Performed At Patho logist Time Signature WBC 8.8 4.0 - 9.5 [facility] x10(3)/[facility] LABORATORY RBC 4.42 (L) 4.58 - [facility] 5.54 [facility] x10(6)/[facility] LABORATORY Hemoglobin 14.0 13.7 - [facility] g/dL [facility] Hematocrit 42.5 40.5 - [place] PAT 48.5 % [facility] MCV 96.2 (H) 82.9 - [place] PAT 93.1 [facility] LABORATORY MCH 31.7 27.5 - [place] [facility] 32.1 pg [facility] MCHC 32.9 32.0 - [facility] 35.7 g/dL [facility] Platelets 179 145 - 357 [facility] x10(3)/[facility] LABORATORY RDWSD 46.4 (H) 36.0 - [place] 45.0 [facility] LABORATORY RDWCV 13.1 11.4 - [facility] 13.8 % [facility] MPV 11.3 7.6 - 12.9 [facility] nRBC % Auto 0.0 % [facility] nRBC Abs Auto 0.000 0.000 - [facility] 0.000 [facility] x10(3)/[facility] LABORATORY Specimen Anatomical Collection Method Collection Time Receive d Time (Source) Location / / Volume Laterality Blood 01/02/2022 7:15 AM 7:32 EDT AM EDT Resulting Agency Comment Spec In Lab Beau Julian MD HEMATOLOGY ORDERABLES Performing Organization Address City/State/[place] [address] (ABNORMAL) Basic Metabolic Panel (non-fasting) (01/02/2022 7:15 AM EDT) P athologist Signature Glucose Lvl 200 (H) 65 - 199 [facility] mg/dL [facility] Comment: Diabetes: >=200 mg/dL plus symp toms BUN 18 10 - 20 mg/dL [facility] Creatinine 0.89 0.80 - 1.50 mg/dL [facility] Sodium 140 135 - 145 mmol/L [facility] Potassium 4.5 3.5 - 5.0 mmol/L [facility] Comment: Please note: ??Patients with WBC >100,00 0 may have falsely elevated Potassium levels. ??For accurate Potassium quantif ication in these patients send serum separator tube (gold top) for subsequent determinations. ??Contact the Clinical Chemistry Laboratory if there are any qu estions. Chloride 105 98 - 107 mmol/L [facility] CO2 23 22 - 31 mmol/L [facility] Anion Gap 12 5 - 15 mmol/L [facility] Calcium 9.1 8.5 - 10.5 mg/dL [facility] Estimated GFR 86 >=60 mL/min/1.73 m?? [facility] Comment: This patient? s estimated [...] Organization Address City/State/[place] [address] POCT Glucose (01/02/2022 6:51 AM EDT) P athologist Signature POC Glucose 186 65 - 199 [facility] mg/dL [facility] Comment: Supplemental ranges: <140 mg/dL before meals <180 mg/dL all other times of the day Specimen Anatomical Collection Method Collection Time Receive d Time (Source) Location / / Volume Laterality Blood 01/02/2022 6:51 AM 2 6:51 EDT AM EDT Ryder Mcadams MD POINT OF CARE TEST ORDERABLE S Performing Organization Address City/State/Z[place] [address] documented in this encounter [...] Routine documented in this encounter Care Teams Pickling Grader Relationship Specialty Start Date End Date Domenica Atkins, TICKET SELLER PCP - General Family Medicine 11/21/21 [address] [place] [address] documented as of this encounter
--- OUTSIDE RECORDS SUMMARY | 2022-02-27 16:09 | XMS_ITS | Encounter Summary ---
:1950 Author Organization [facility] [place] [address] Care Team Providers Name Role Phone Domenica Atkins APRN Primary Care Provider Encounter Details Date Type Department Care Team Description 12/21/2021 Telephone Cardiology at [facility] [place] [address] Social History Tobacco Use Types Packs/Day Years Used Date Never Assessed Sex Assigned at Date Recorded Not on file documented as of this encounter Miscellaneous Notes Telephone Encounter - Dora Palacio - 12/21/2021 8:36 AM EDT Records request faxed to [facility] at [phone]. Dora Palacio EP Scheduling documented in this encounter Plan of Treatment Upcoming Encounters Date Type Specialty Care Team Description 07/11/2022 Office Visit Cardiology Curtis Arredondo MD [facility] DR CARDIOLOGY DEPT. [place], [place] [address] (Wo rk) documented as of this encounter Visit Diagnoses Not on filedocumented in this encounter Care Teams Bobbin Winder Tender Relationship Specialty Start Date End Date Domenica Atkins APRN PCP - General Family Medicine 11/21/21 [address] [place] [address] documented as of this encounter
--- OUTSIDE RECORDS SUMMARY | 2022-02-27 16:10 | XMS_ITS | Encounter Summary ---
:1950 Author Organization [facility] Address [address] [place] [address] Care Team Providers Name Role Phone Unknown, Provider Primary Care Provider Encounter Details Date Type Department Care Team Description 12/06/2020 Lab Requisition [facility] Outr Resulting Lab, Pathology & Laboratory Provider [facility] [address] [place] [address] Social History Tobacco Use Types Packs/Day Years Used Date Never Assessed Sex Assigned at Date Recorded Not on file documented as of this encounter Plan of Treatment Not on filedocumented as of this encounter Procedures Procedure Name Priority Date/Time Associated Comments Diagnosis PSA TOTAL, Routine 12/06/2020 9:05 EDT Results for this DIAGNOSTIC procedure are i n the results section. documented in this encounter Results PSA TOTAL, DIAGNOSTIC (12/06/2020 9:05 EDT) Pathologist Sig nature PSA 0.3 0.0 - 6.5 ng/mL [facility] TORY SERVICES Specimen Blood - Venous blood (substance) Narrative [facility] - 12/06/2020 21:55 EDT NOTE: Serum PSA concentration should not be in terpreted as absolute evidence for the presence or absence of malignant disease. Assayed on Siemens ADVIA Centaur XPT usi ng chemiluminescent technology.??Values obtained by using different assay methods cannot be used interchangeably. Performing Organization Address City/State/ZIP Code Phon e Number [facility] [address] [place] [address] SERVICES documented in this encounter Visit Diagnoses Not on filedocumented in this encounter Care Teams Tube Cutter Relationship Specialty Start Date End Date Unknown, Provider, PCP - General 12/01/20 documented as of this encounter
--- OUTSIDE RECORDS SUMMARY | 2022-02-27 16:10 | XMS_ITS | Encounter Summary ---
:1950 Author Organization [facility] Address [address] [place] [address] Care Team Providers Name Role Phone Unknown, Provider Primary Care Provider Encounter Details Date Type Department Care Team Description 12/30/2021 Lab Requisition [facility] Outr Resulting Lab, Pathology & Laboratory Provider [facility] [address] [place] [address] Social History Tobacco Use Types Packs/Day Years Used Date Never Assessed Sex Assigned at Date Recorded Not on file documented as of this encounter Plan of Treatment Not on filedocumented as of this encounter Procedures Procedure Name Priority Date/Time Associated Diagnosis Comme nts COVID-19 TEST [facility] Today 12/29/2021 13:30 LAB PCR EDT COVID-19 TESTING Routine 12/29/2021 13:30 Results for this EDT procedure are i n the results section. documented in this encounter Results COVID-19 TEST [facility] LAB PCR (12/29/2021 13:30 EDT) Specimen Swab Performing Organization Address City/State/ZIP Code Phon e Number [facility] [address] [place] [address] SERVICES COVID-19 TESTING (12/29/2021 13:30 EDT) COVID-19 rt-PCR Negative Negative [facility] Result Comment: CENTER LABORATORY This test has not been FDA c leared or approved. This test has been authorized by FDA under an EUA for use by authorized laboratories. This test has been authorized only for detection of nucleic acid fro SERVICES m 2019-nCoV, not for any oth er viruses or pathogens. This test is only authorized for the duration of the declaration that circumstances exist justifying the authorization of emergency use of in vitro d iagnostic tests for detectio n and/or diagnosis of 2019-nCoV under section 564(b)(1) of Act, 21 U.S.C ?? 360bbb-3(b) (1), unless the authorization is terminated or revoked sooner. Negative results do not prec lude 2019-nCoV infection and should not be used as the sole basis for treatment or other patient management decisions. Negative results must be combined with clinical observa tions, patient history, and epidemiological informatio n. Testing was performed using the garret SARS-CoV-2 assay ([employer] [facility] on the Garret 6800 System Performing Lab Garret [address] [facility] Lab [facility] SERVICES Specimen Swab Performing Organization Address City/State/ZIP Code Phon e Number [facility] [address] [place] [address] SERVICES documented in this encounter Visit Diagnoses Not on filedocumented in this encounter Care Teams Conference Manager Relationship Specialty Start Date End Date Unknown, Provider, PCP - General 12/01/20 documented as of this encounter
--- OUTSIDE RECORDS SUMMARY | 2022-02-27 16:10 | XMS_ITS ---
:1950 Author Care Team Providers Name Role Phone DR. THIAGO DUTTA Primary Care Provider [phone] DR. THIAGO DUTTA Referring Provider [phone] THIAGO DUTTA Primary Care Provider [phone] Allergies Code Code System Name Reaction Severity [...]
--- OUTSIDE RECORDS SUMMARY | 2022-02-27 16:10 | XMS_ITS | Clinical Summary ---
:1950 Author Organization [facility] Address [address] [place] [address] Care Team Providers Name Role Phone Unknown, Provider Primary Care Provider Encounters Date Type Specialty Care Team Description 12/30/2021 Lab Requisition Clinical Laboratory Outr Resulting Lab , Provider from Last 3 Months Social History Tobacco Use Types Packs/Day Years Used Date Never Assessed Sex Assigned at Date Recorded Not on file Plan of Treatment Health Maintenance Due Date Last Done Comments Hepatitis C Screen 1950 COVID-19 Vaccine (1) 1955 Fall Risk Screening 2015 Procedures Procedure Name Priority Date/Time Associated Diagnosis Comme nts COVID-19 TEST [facility] Today 12/29/2021 13:30 LAB PCR EDT COVID-19 TESTING Routine 12/29/2021 13:30 Results for this EDT procedure are i n the results section. from Last 3 Months Results COVID-19 TEST [facility] LAB PCR (12/29/2021 13:30 EDT) Specimen Swab Performing Organization Address City/State/ZIP Code Phon e Number [email or web address] [address] [place] [address] SERVICES COVID-19 TESTING (12/29/2021 13:30 EDT) COVID-19 rt-PCR Negative Negative [email or web address] MEDICAL Result Comment: CENTER LABORATORY This test [...] was performed using the garret SARS-CoV-2 assay ([employer] on the Garret 6800 System Performing Lab [address] [facility] Lab [facility] SERVICES Specimen Swab Performing Organization Address City/State/ZIP Code Phon e Number [facility] [address] [place] [address] SERVICES from Last 3 Months Insurance Payer Benefit Plan / Subscriber ID Effective Dates Phone Addre ss Type Group MEDICARE MEDICARE A/B [id number] 2015-Presen [id number] Medicare GL t [facility] [place] [address] [place] [facility] [id number] 2020-Presen [address] [place] [address] Care Teams Check Processing Clerk Relationship Specialty Start Date End Date Unknown, Provider, PCP - General 12/01/20
[2022-02-27 16:48] LABS: HCT 40.4 % (40.0-50.0); HGB 12.9 g/dL (13.5-17.5); MCHC 31.9 % (32.0-36.0); MCV 97 fL (80-95); Platelet Count 121 10^3/uL (130-400); RBC 4.16 10^6/uL (4.36-5.78); RDW-SD 49.1 fL; WBC 11.06 10^3/uL (4.4-10.8)
[2022-02-27 17:05] LABS: C-Reactive Protein 0.91 mg/dL (0.0-0.3); NT-proBNP 1338 pg/mL (<300); TSH 3.24 uIU/mL (0.36-3.74)
== END 2022-02-27 16:07 | disposition home or self-care (01) ==
LOC: NCHCN 16:06
PROVIDERS: PCP Nurse Practitioner Family; Visit Provider Nurse Practitioner Family
DX: R00.0 Tachycardia, unspecified (principal); I48.91 Unspecified atrial fibrillation; R06.02 Shortness of breath; M25.461 Effusion, right knee; M25.462 Effusion, left knee
CPT/HCPCS: 85027; 83880; 84443; 86140

== ENCOUNTER 2022-03-13 18:32 | Outpatient (REF) | payer MEDICARE, BC, SELFPAY ==
[2022-03-13 16:05] LABS: HCT 45.8 % (40.0-50.0); MCH 30.2 pg (27.0-33.0); MCHC 32.8 % (32.0-36.0); MCV 92 fL (80-95); MPV 12.6 fL (8.0-11.0); Platelet Count 101 10^3/uL (130-400); RBC 4.96 10^6/uL (4.36-5.78); RDW 13.8 % (11.8-14.1); RDW-SD 46.8 fL; WBC 10.46 10^3/uL (4.4-10.8)
[2022-03-13 16:17] LABS: Anion Gap 7.2 mmol/L (3-11); BUN 23 mg/dL (7-18); CO2 25.8 mmol/L (21.0-32.0); CREATININE 0.9 mg/dL (0.70-1.30); Calcium 8.9 mg/dL (8.5-10.1); Chloride 104 mmol/L (98-107); Glucose 151 mg/dL (74-106); Potassium 4.4 mmol/L (3.5-5.1); Sodium 137 mmol/L (136-145)
== END 2022-03-13 18:33 | disposition home or self-care (01) ==
LOC: NCHCN 18:32
PROVIDERS: PCP Nurse Practitioner Family; Visit Provider Nurse Practitioner Family
DX: E11.9 Type 2 diabetes mellitus without complications (principal); D69.59 Other secondary thrombocytopenia; I50.21 Acute systolic (congestive) heart failure; I48.91 Unspecified atrial fibrillation; Z79.01 Long term (current) use of anticoagulants
CPT/HCPCS: 80048; 85027

== ENCOUNTER 2022-04-03 13:21 | Outpatient (REF) | payer MEDICARE, BC, SELFPAY ==
[2022-04-03 19:44] LABS: ALT 27 U/L (16-63); AST 19 U/L (15-37); Creatine Kinase 60 U/L (39-308)
[2022-04-03 20:14] LABS: Hemoglobin A1C 7.8 % (<5.7)
[2022-04-03 20:33] LABS: Digoxin 0.33 ng/mL (0.90-2.00); HDL Cholesterol 37 mg/dL (40-60); LDL CHOLESTEROL 125 mg/dL (<100)
[2022-04-04 04:31] LABS: HCT 40.6 % (40.0-50.0); HGB 13.6 g/dL (13.5-17.5); MCH 30.8 pg (27.0-33.0); MCHC 33.5 % (32.0-36.0); MCV 92 fL (80-95); MPV 12.7 fL (8.0-11.0); RBC 4.41 10^6/uL (4.36-5.78); RDW 14.4 % (11.8-14.1); RDW-SD 48.9 fL; WBC 7.39 10^3/uL (4.4-10.8)
[2022-04-04 04:48] LABS: Platelet Count 83 10^3/uL (130-400)
== END 2022-04-03 13:22 | disposition home or self-care (01) ==
LOC: NCHCN 13:21
PROVIDERS: PCP Nurse Practitioner Family; Visit Provider Nurse Practitioner Family
DX: E11.9 Type 2 diabetes mellitus without complications (principal); D69.59 Other secondary thrombocytopenia; I48.91 Unspecified atrial fibrillation; Z79.899 Other long term (current) drug therapy; Z51.81 Encounter for therapeutic drug level monitoring
CPT/HCPCS: 82550; 83721; 85027; 80162; 83036; 83718; 84450; 84460

== ENCOUNTER 2022-05-09 10:31 | Outpatient (REF) | payer MEDICARE, BC, SELFPAY ==
[2022-05-09 16:04] LABS: HCT 43.4 % (40.0-50.0); HGB 14.3 g/dL (13.5-17.5); MCH 30.4 pg (27.0-33.0); MCHC 32.9 % (32.0-36.0); MCV 92 fL (80-95); MPV 11.6 fL (8.0-11.0); Platelet Count 193 10^3/uL (130-400); RBC 4.71 10^6/uL (4.36-5.78); RDW 15.1 % (11.8-14.1); RDW-SD 51.4 fL; WBC 9.95 10^3/uL (4.4-10.8)
[2022-05-09 16:36] LABS: Hemoglobin A1C 7.8 % (<5.7)
[2022-05-09 23:03] LABS: PSA, Screening 0.3 ng/mL (<=6.5)
== END 2022-05-09 10:32 | disposition home or self-care (01) ==
LOC: NCHCN 10:31
PROVIDERS: PCP Nurse Practitioner Family; Visit Provider Nurse Practitioner Family
DX: E11.9 Type 2 diabetes mellitus without complications (principal); N40.0 Benign prostatic hyperplasia without lower urinary tract symptoms; Z12.5 Encounter for screening for malignant neoplasm of prostate
CPT/HCPCS: 84153; 85027; 83036

== ENCOUNTER → 2022-07-06 08:54 | Outpatient (BNVA) | payer MEDICARE, BC, SELFPAY | PROVIDERS: PCP Nurse Practitioner Family; Referring Provider Nurse Practitioner Family; Visit Provider Internal Medicine Cardiovascular Disease | DX: I48.91 Unspecified atrial fibrillation (principal); I42.9 Cardiomyopathy, unspecified; I34.0 Nonrheumatic mitral (valve) insufficiency; Z79.01 Long term (current) use of anticoagulants; R06.02 Shortness of breath | CPT/HCPCS: 99214 ==

== ENCOUNTER 2022-07-12 18:27 | Outpatient (REF) | payer MEDICARE, BC, SELFPAY ==
[2022-07-12 19:02] LABS: HGB 14.8 g/dL (13.5-17.5); MCH 31.3 pg (27.0-33.0); MCHC 33.6 % (32.0-36.0); MCV 93 fL (80-95); MPV 12.1 fL (8.0-11.0); Platelet Count 198 10^3/uL (130-400); RBC 4.73 10^6/uL (4.36-5.78); RDW 13.7 % (11.8-14.1); RDW-SD 46.6 fL; WBC 10.13 10^3/uL (4.4-10.8)
[2022-07-12 19:14] LABS: Digoxin 0.76 ng/mL (0.90-2.00)
[2022-07-12 19:20] LABS: NT-proBNP 702 pg/mL (<300)
[2022-07-12 19:32] LABS: Hemoglobin A1C 8.9 % (<5.7)
== END 2022-07-12 18:28 | disposition home or self-care (01) ==
LOC: NCHCN 18:27
PROVIDERS: PCP Nurse Practitioner Family; Visit Provider Nurse Practitioner Family
DX: I48.91 Unspecified atrial fibrillation (principal); E11.9 Type 2 diabetes mellitus without complications
CPT/HCPCS: 85027; 80162; 83036; 83880

== ENCOUNTER 2022-08-01 08:46 | Emergency (ER) | payer MEDICARE, BC, SELFPAY ==
[2022-08-01] VITALS (65 sets, daily range): BP systolic 102–119; BP diastolic 51–84; PULSE 41–82; RESP 9–35; TEMP 36.6; O2SAT 87–100
--- NOTE | 2022-08-01 08:30 | RT.EKG_ITS ---
APPROVED REPORT Exam: Resting ECG Reason for Exam: chest pain Patient Location: E HR:63 bpm ECG Measurements Heart Rate 63 AXIS SD [id number] P [id number] QRSd 93 QRS -29 QT 437 T -6 QTc 450 Conclusion Atrial fibrillation...V-rate 57- 94, irreg A-activity Inferior infarct, old...Q >35mS, II III aVF
[2022-08-01 09:11] LABS: Abs Immature Grans 0.04 10^3/uL (0.0-0.06); Absolute Eosinophil Count 0.23 10^3/uL (0.0-0.7); Absolute Lymphocyte Count 1.99 10^3/uL (1.2-3.4); Absolute Monocyte Count 0.94 10^3/uL (0.1-0.8); Absolute Neutrophil Count 6.83 10^3/uL (1.2-6.7); Eosinophils % 2.3; HCT 41.8 % (40.0-50.0); HGB 13.8 g/dL (13.5-17.5); Immature Grans % 0.4; Lymphocytes % 19.6; MCH 31.4 pg (27.0-33.0); MCV 95 fL (80-95); MPV 10.5 fL (8.0-11.0); Monocytes % 9.3; Neutrophils % 67.4; Platelet Count 193 10^3/uL (130-400); RDW 13.2 % (11.8-14.1); WBC 10.13 10^3/uL (4.4-10.8)
--- NOTE | 2022-08-01 09:12 | ED.GENADUL_ITS ---
Discharge Plan Disposition Patient Disposition: Home Condition: Improving Discharge Details Clinical Impression: Dyspnea, Chest pain Primary Care Provider: Domenica Atkins ED Provider: Edwar Banda Home Meds and New Rx's Prescriptions: Continued sildenafil [Viagra] 50 mg tablet 50 mg PO DAILY PRN (Reason: sexual activity) Qty: 10 0RF Hold Instructions: Home Medication placed on hold at Doctor's office Rx Instructions: administer 30 minutes to 4 hours before activity Metamucil 3.4 gram/5.4 gram powder 1 tbsp PO DAILY Rx Instructions: mix into at least 8 oz of water or juice before administering melatonin 10 mg capsule 20 mg PO HS PRN simethicone [Gas Relief (simethicone)] 80 mg tablet,chewable 80 mg PO BID-QID PRN Adult 50 Plus Probiotic 4 billion cell capsule 4,000 mmu cells PO DAILY Rx Instructions: administer with a meal Levemir FlexTouch U-100 Insuln 100 unit/mL (3 mL) insulin pen 50 unit subcut QHS glimepiride 4 mg tablet 4 mg PO BID (DME) pen needle, diabetic [TRUEplus Pen Needle] 31 gauge x 1/4 needle See Rx Instructions .Route Rx Instructions: As directed metoprolol succinate 100 mg tablet extended release 24 hr 100 mg PO DAILY rivaroxaban 20 mg tablet 20 mg PO DAILY Rx Instructions: must administer with evening meal digoxin 125 mcg (0.125 mg) tablet 125 mcg PO DAILY zolpidem [Ambien] 10 mg tablet 10 mg PO QHS PRN metformin 1,000 MG tablet 1,000 mg PO BID omeprazole 20 mg capsule,delayed release(DR/EC) 20 mg PO BID pravastatin 20 mg tablet 20 mg PO BID omega-3 fatty acids-fish oil 1 EACH capsule 1,000 mg PO BID Multi Vitamin W Minerals 1 tab BID potassium citrate 10 mEq (1,080 mg) tablet extended release 10 meq PO BID terbinafine HCl 1 % Cream 1 applic TOPICAL BID psyllium Packet 1 packet PO DAILY Discharge Instructions Instructions: Chest Pain (ED), Dyspnea (ED) Additional Instructions: Work-up in the ER does not reveal any obvious emergent process. I personally spoke with the cardiology team at [facility] who will be reaching out to you to set up outpatient follow-up. Please watch for new or worsening symptoms and return to the ER for any concerns. Lastly, please contact your primary care doctor to discuss your ER visit and need for outpatient reevaluation. Medical Decision Making 72-year-old gentleman, DNR, DNI, significant past medical history which includes diabetes, A. fib, a flutter, recent cardioversion, anxiety, GERD, mitral regurgitation presents for what he describes as more frequent and worsening shortness of breath that has been associated with some chest pressure over night. He reports the pressure was mild 2 out of 10 and is now a 1 out of 10. Was given nitro and aspirin without any change of his symptoms. Clinically he appears well, nontoxic, in triage it appears as though he was slightly tachypneic but during my evaluation he is speaking in full sentences. He states that he feels as though this is all stemming from his ongoing A. fib that is difficult to control and he is concerned that he may be in CHF. His O2 sat is in the mid 90s on room air and he is not requiring any supplemental oxygen. He is in A. fib but is rate controlled. Clinically no signs of any obvious CHF. Plan is to initiate a cardiac work-up and given his ongoing symptoms a CTA of his chest. As he did not feel as though the nitro made any difference in his symptoms, I will not provide additional nitro. Laboratory values are grossly unremarkable for any obvious emergent process. No evidence of leukocytosis, anemia, thrombocytopenia. His electrolytes are normal, anion gap is 7.9, GFR of 71.32. His glucose is 350. Magnesium 1.4. He will be given 1 g IV magnesium. Troponin less than 50. BNP minimally elevated at 707 although this appears to be at his baseline. His dig level is subtherapeutic at 0.43. Negative COVID test. CTA unremarkable for PE, no effusion. Cardiomegaly. Case thus far discussed with patient and family. Patient reports that he feels as though his breathing is back to normal. He reports that the chest pressure has resolved completely and he feels at baseline. He is concerned that he is a diabetic and has not eaten, lunch was ordered. Also concerned about the IV contrast. He is renal function is well, clinically he is not in any obvious CHF, will provide some IV fluid. He is agreeable to awaiting a delta troponin. At this time we discussed the overall disposition, he reports that he feels well enough for discharge and would rather not be admitted. I do believe this to be reasonable but I would like to await his delta troponin and speak with cardiology. Delta troponin remains less than 50. Patient remains at his baseline. Has not developed any additional symptoms. [facility] Believes that discharge is reasonable as the patient has had a thorough work-up here in the ER. Recommend outpatient follow-up through his PCP within the next 2 weeks and she will work on follow-up through cardiology and electrophysiology at her facility. Does not recommend any medication changes even though the dig level was subtherapeutic. Standard discharge and return precautions were provided. Patient understands, is agreeable to this plan, and has no additional questions or concerns upon discharge. This documentation was generated using [employer] system, please disregard any oddities of phrase or misspellings. Medical Records Medical records reviewed: Yes I reviewed the patient's medical records. Imaging Data Radiologic Study: Attestation: I personally reviewed and interpreted this imaging study as follows: Imaging: CT Scan Radiologist's impression: Exam(s) CT CHEST PE CTA EXAM: CT CHEST PE CTA CLINICAL HISTORY: afib/sob/cp. TECHNIQUE: Imaging Protocol: CT angiography of the chest was performed using pulmonary embolus protocol. Multi planar reconstructions were performed. CONTRAST MATERIAL: Intravenous: Omnipaque 350 Contrast volume: 100 cc COMPARISON: No exams were available for comparison FINDINGS: CHEST: PULMONARY ARTERIES: There are no intraluminal filling defects to suggest acute pulmonary emboli. LUNGS: Mild increased markings both lung bases noted. No prominent infiltrates nor pleural effusions. There is a fissure related 6 millimeter nodule on the right side.. MEDIASTINUM: Small lymph nodes in both hilar regions noted. There is subcarinal adenopathy. There is no adenopathy in the anterior mediastinal fat. CARDIAC: Cardiomegaly. Moderate coronary artery calcification. No pericardial effusion.The diameter of the ascending thoracic aorta is prominent measuring 4.2 cm. Diameter of the descending thoracic aorta is upper normal. Left atrial enlargement. No calcified mitral valve evident. There is no significant shift of the interventricular septum. PARTIALLY VISUALIZED UPPERMOST ABDOMEN: There are symmetrical hypodense nodules evident in both adrenal glands which exhibit Hounsfield unit measurements less than 10 HU and therefore probably benign adenomas. There is a tiny nonobstructive calculus in the partially visualized right kidney. There is also a 6 cm cyst in the partially visualized right kidney. Also a partially included smaller cyst in the left kidney. OSSEOUS: No significant osseous lesions.No fractures.. IMPRESSION: 1. No evidence of acute pulmonary emboli. No evidence of pulmonary infarction.No pleural effusions. 2. Mild increased markings both lung bases. No prominent infiltrates. 3. Small 6 millimeter fissure related nodule in the right lung. Recommend fol low-up CT in 6 months. There is subcarinal adenopathy evident. Also slightly enlarged lymph nodes in both hilar regions. No adenopathy in the anterior mediastinal fat. 4. Cardiomegaly. Left atrial enlargement. No pericardial effusion. Lab Data Lab results reviewed: Yes I reviewed the patient's lab results. Labs: Laboratory Tests Range/Units 08/01/22 08/01/22 08/01/22 09:01 09:01 09:01 WBC (4.4-10.8) 10^3/uL 10.13 RBC (4.36-5.78) 10^6/uL 4.40 Hgb (13.5-17.5) g/dL 13.8 Hct (40.0-50.0) % 41.8 MCV (80-95) fL 95 MCH (27.0-33.0) pg 31.4 MCHC (32.0-36.0) % 33.0 RDW (11.8-14.1) % 13.2 Plt Count (130-400) 10^3/uL 193 MPV (8.0-11.0) fL 10.5 Immature Gran % 0.4 Neutrophils % 67.4 Lymphocytes % 19.6 Monocytes % 9.3 Eosinophils % 2.3 Basophils % 1.0 Nucleated RBC % (0.0-0.3) % 0.0 Absolute Neutrophils (1.2-6.7) 10^3/uL 6.83 H Absolute Lymphocytes (1.2-3.4) 10^3/uL 1.99 Absolute Monocytes (0.1-0.8) 10^3/uL 0.94 H Absolute Eosinophils (0.0-0.7) 10^3/uL 0.23 Absolute Basophils (0.0-0.2) 10^3/uL 0.10 PT (9.3-11.0) sec INR (0.9-1.1) APTT (21.0-27.5) sec Sodium (136-145) mmol/L 136 Potassium (3.5-5.1) mmol/L 3.9 Chloride (98-107) mmol/L 103 Carbon Dioxide (21.0-32.0) mmol/L 25.1 Anion Gap (3-11) mmol/L 7.9 BUN (7-18) mg/dL 22 H Creatinine (0.70-1.30) mg/dL 1.1 Est GFR (CKD-EPI 2020) (mL/min/1.73m2) 71.32 Glucose (74-106) mg/dL 350 H Calcium (8.5-10.1) mg/dL 8.6 Magnesium (1.8-2.4) mg/dL 1.4 L Total Bilirubin (0.2-1.0) mg/dL 0.5 AST (15-37) U/L 12 L ALT (16-63) U/L 18 Alkaline Phosphatase (46-116) U/L 91 Troponin I (<or=60) ng/L < 50 NT-Pro-B Natriuret Pep (<300) pg/mL 707 H Total Protein (6.4-8.2) g/dL 6.3 L Albumin (3.4-5.0) g/dL 3.3 L Digoxin (0.90-2.00) ng/mL 0.43 L COVID-19 Source SARS-CoV-2 (PCR) (Negative) Range/Units 08/01/22 08/01/22 08/01/22 09:06 09:18 11:45 WBC (4.4-10.8) 10^3/uL RBC (4.36-5.78) 10^6/uL Hgb (13.5-17.5) g/dL Hct (40.0-50.0) % MCV (80-95) fL MCH (27.0-33.0) pg MCHC (32.0-36.0) % RDW (11.8-14.1) % Plt Count (130-400) 10^3/uL MPV (8.0-11.0) fL Immature Gran % Neutrophils % Lymphocytes % Monocytes % Eosinophils % Basophils % Nucleated RBC % (0.0-0.3) % Absolute Neutrophils (1.2-6.7) 10^3/uL Absolute Lymphocytes (1.2-3.4) 10^3/uL Absolute Monocytes (0.1-0.8) 10^3/uL Absolute Eosinophils (0.0-0.7) 10^3/uL Absolute Basophils (0.0-0.2) 10^3/uL PT (9.3-11.0) sec INR (0.9-1.1) APTT (21.0-27.5) sec Sodium (136-145) mmol/L Cancelled Potassium (3.5-5.1) mmol/L Cancelled Chloride (98-107) mmol/L Cancelled Carbon Dioxide (21.0-32.0) mmol/L Cancelled Anion Gap (3-11) mmol/L Cancelled BUN (7-18) mg/dL Cancelled Creatinine (0.70-1.30) mg/dL Cancelled Est GFR (CKD-EPI 2020) (mL/min/1.73m2) Cancelled Glucose (74-106) mg/dL Cancelled Calcium (8.5-10.1) mg/dL Cancelled Magnesium (1.8-2.4) mg/dL Total Bilirubin (0.2-1.0) mg/dL Cancelled AST (15-37) U/L Cancelled ALT (16-63) U/L Cancelled Alkaline Phosphatase (46-116) U/L Cancelled Troponin I (<or=60) ng/L Cancelled < 50 NT-Pro-B Natriuret Pep (<300) pg/mL Total Protein (6.4-8.2) g/dL Cancelled Albumin (3.4-5.0) g/dL Cancelled Digoxin (0.90-2.00) ng/mL COVID-19 Source Nasal/Nares SARS-CoV-2 (PCR) (Negative) Negative Range/Units 08/01/22 08/01/22 11:45 12:06 WBC (4.4-10.8) 10^3/uL RBC (4.36-5.78) 10^6/uL Hgb (13.5-17.5) g/dL Hct (40.0-50.0) % MCV (80-95) fL MCH (27.0-33.0) pg MCHC (32.0-36.0) % RDW (11.8-14.1) % Plt Count (130-400) 10^3/uL MPV (8.0-11.0) fL Immature Gran % Neutrophils % Lymphocytes % Monocytes % Eosinophils % Basophils % Nucleated RBC % (0.0-0.3) % Absolute Neutrophils (1.2-6.7) 10^3/uL Absolute Lymphocytes (1.2-3.4) 10^3/uL Absolute Monocytes (0.1-0.8) 10^3/uL Absolute Eosinophils (0.0-0.7) 10^3/uL Absolute Basophils (0.0-0.2) 10^3/uL PT (9.3-11.0) sec 13.8 H INR (0.9-1.1) 1.4 H APTT (21.0-27.5) sec 37.2 H Sodium (136-145) mmol/L Potassium (3.5-5.1) mmol/L Chloride (98-107) mmol/L Carbon Dioxide (21.0-32.0) mmol/L Anion Gap (3-11) mmol/L BUN (7-18) mg/dL Creatinine (0.70-1.30) mg/dL Est GFR (CKD-EPI 2020) (mL/min/1.73m2) Glucose (74-106) mg/dL Calcium (8.5-10.1) mg/dL Magnesium (1.8-2.4) mg/dL Total Bilirubin (0.2-1.0) mg/dL AST (15-37) U/L ALT (16-63) U/L Alkaline Phosphatase (46-116) U/L Troponin I (<or=60) ng/L Cancelled NT-Pro-B Natriuret Pep (<300) pg/mL Total Protein (6.4-8.2) g/dL Albumin (3.4-5.0) g/dL Digoxin (0.90-2.00) ng/mL COVID-19 Source SARS-CoV-2 (PCR) (Negative) ECG Data Attestation: I personally reviewed and interpreted this ECG (s) as follows: Interpretation: A. fib, ventricular rate of 63, no STEMI Sign Out No HPI General Mode of arrival: EMS . Date/Time Provider Initiated Documentation: 08/01/22 08:59 . Limitations to Documentation: no limitations . Information obtained by: patient and EMS . HPI Narrative: This is a 72-year-old gentleman, past medical history of mitral regurgitation, cardiomyopathy, A. fib, recent cardioversion, status post ablation for flutter, chronic dyspnea, diabetes, presenting to the ER for evaluation with his family for acute on chronic dyspnea that he feels is worsening, this morning associated with some anterior chest pressure 2 out of 10. The pressure does not radiate anywhere. He contacted EMS by the time EMS got there he reports his symptoms were a 1 out of 10, given full dose aspirin and a single nitro which did not change his symptoms. Patient states that his symptoms have becoming more severe and frequent especially since his recent cardioversion at [place] on July 19. He states that he is scheduled to be seen at the end of August once again for his A. fib as he states they tell me A. fib should not make me feel this way but it makes me feel terrible. He denies recent illness or trauma, fever, cough, abdominal pain, nausea, vomiting, change in bowel or bladder function, fluid retention. Patient tells me that he was admitted to [facility] in January for severe symptoms, 3 L had to be drained, and he is concerned that he may be in CHF once again. Upon further questioning patient tells me that he did have some chest pressure last night as well. Related Data Home Medications Medication Instructions Recorded Confirmed metformin 1,000 mg tablet 1,000 mg PO BID 07/11/15 08/01/22 Multi Vitamin W Minerals 1 tab BID 08/03/15 08/01/22 omega-3 fatty acids-fish oil 300 1,000 mg PO BID 08/03/15 08/01/22 mg-1,000 mg capsule potassium citrate 10 mEq (1,080 10 meq PO BID 07/12/20 08/01/22 mg) tablet,extended release sildenafil 50 mg tablet (Viagra) 50 mg PO DAILY PRN sexual activity 09/26/20 08/01/22 #10 tabs omeprazole 20 mg capsule,delayed 20 mg PO BID 12/22/20 08/01/22 release lactobacillus combination no.9 4 4,000 mmu cells PO DAILY 12/26/20 08/01/22 billion cell capsule (Adult 50 Plus Probiotic) melatonin 10 mg capsule 20 mg PO HS PRN 12/26/20 08/01/22 simethicone 80 mg chewable tablet 80 mg PO BID-QID PRN 12/26/20 08/01/22 (Gas Relief (simethicone)) glimepiride 4 mg tablet 4 mg PO BID 11/02/21 08/01/22 insulin detemir U-100 100 unit/mL 50 unit subcut QHS 11/02/21 08/01/22 (3 mL) subcutaneous pen (Levemir FlexTouch U-100 Insulin) pravastatin 20 mg tablet 20 mg PO BID 11/02/21 08/01/22 psyllium 1 packet PO DAILY 11/20/21 08/01/22 terbinafine HCl 1 % topical cream 1 applic topical BID 11/20/21 08/01/22 psyllium husk 3.4 gram/5.4 gram 1 tbsp PO DAILY 12/19/21 08/01/22 oral powder (Metamucil) zolpidem 10 mg tablet (Ambien) 10 mg PO QHS PRN 02/15/22 08/01/22 digoxin 125 mcg (0.125 mg) tablet 125 mcg PO DAILY 07/06/22 08/01/22 metoprolol succinate 100 mg 100 mg PO DAILY 07/06/22 08/01/22 tablet,extended release 24 hr pen needle, diabetic 31 gauge x 07/06/22 08/01/22 1/4 (TRUEplus Pen Needle) rivaroxaban 20 mg tablet 20 mg PO DAILY 07/06/22 08/01/22 Previous Rx's Medication Instructions Recorded sildenafil 50 mg tablet (Viagra) 50 mg PO DAILY PRN sexual activity 09/26/20 #10 tabs Allergies Allergy/AdvReac Type Severity Reaction Status Date / Time No Known Allergies Allergy Verified 08/01/22 09:58 General Stated Complaint: Chest Pain DEDE: 2 Review of Systems Constitutional Constitutional: Denies fever(s) and Denies weakness ENT Ears, Nose, Mouth, and Throat: Denies neck pain Cardiovascular Cardiovascular: Reports chest pain (Pressure) and Reports dyspnea Respiratory Respiratory: Denies cough and Reports dyspnea Gastrointestinal Gastrointestinal: Denies abdominal pain, Denies nausea and Denies vomiting Musculoskeletal Musculoskeletal: Denies back pain and Denies neck pain Integumentary/Breasts Skin/Breast: Denies rash Neurologic Neurologic: Denies weakness Hematologic/Lymphatic Hematologic/Lymphatic: Reports easy bleeding and Reports easy bruising PFSH All Active Problems Dyspnea (Acute) Chest pain (Acute) Mitral regurgitation (Chronic) Cardiomyopathy (Acute) Tachycardia (Acute) A-fib (Chronic) PAC (premature atrial contraction) (Acute) Abnormal chest x-ray (Acute) Shortness of breath (Acute) Knee pain (Acute) Knee swelling (Acute) Medical History Diabetes mellitus Erectile dysfunction GERD (gastroesophageal reflux disease) Hemorrhoids Hyperlipidemia Lower urinary tract symptoms (LUTS) Nocturia Onychomycosis JEEVAN (obstructive sleep apnea) Strabismus Family History Paternal Grandfather Heart attack Diabetes Amputation leg, bilat Paternal Grandmother , in house fire No problems noted. Father , heart attack at 65 with pneumonia 85 Diabetes Heart attack Lung cancer Mother Dementia Sister Diabetes Heart attack Brother Diabetes Heart attack Maternal Grandfather , of [place] at 70 Diabetes Heart disease Heart attack Maternal Grandmother , passed at 19 giving to mother No problems noted. Social History Smoking/Tobacco Use Status: Never Smoking risk assessment performed?: Yes Alcohol Intake: never Drug use: Never Substance use type: does not use Do you feel safe at home: Yes Do you feel safe in your relationship?: Yes Exam Const General: cooperative, healthy appearing, comfortable and no acute distress Orientation: alert, awake and oriented x3 HENMT Head: normal to inspection, normocephalic and atraumatic Face and sinus: normal facial exam Mouth: moist mucous membranes Eyes Conjunctivae: conjunctivae normal Neck Neck: normal visual inspection, full ROM, no meningeal signs, trachea midline and supple Resp Effort & Inspection: normal respiratory effort and able to speak in complete sentences Auscultation: clear to auscultation bilaterally Cardio Rate: regular rate Rhythm: regular rhythm GI Palpation: soft, not firm, no guarding, no pulsatile masses and nontender Back/Spine/Pelvis Back: No back tenderness Skin General skin exam: no rashes or lesions noted Neuro General: patient alert, patient awake, moves all extremities and no focal motor deficits Cognition: normal cognition Speech: speech normal Gait: normal gait Motor: muscle tone normal throughout Sensory Exam: no sensory deficits noted Extrem General: normal to inspection, full ROM, capillary refill normal, no pedal edema and no calf tenderness Psych Appearance: grossly normal Mental Status: mental status grossly normal Course Vital Signs Vital signs: Vital Signs Temperature 36.6 C 08/01/22 08:50 Pulse 63 08/01/22 08:50 Respiratory Rate 25 H 08/01/22 08:50 Blood Pressure 102/52 L 08/01/22 08:50 Pulse Oximetry 97 08/01/22 08:50 Temperature 36.6 C 08/01/22 08:50 Temperature Source Temporal Artery Scan 08/01/22 08:50 Pulse 63 08/01/22 08:50 Respiratory Rate 26 H 08/01/22 09:00 Respiratory Effort Labored 08/01/22 09:00 Respiratory Depth Normal 08/01/22 09:00 Respiratory Pattern Normal 08/01/22 09:00 Blood Pressure 102/52 L 08/01/22 08:50 Blood Pressure Position Sitting 08/01/22 08:50 Pulse Oximetry 97 08/01/22 08:50 Oxygen Delivery Method Room Air 08/01/22 08:50 Oxygen Flow Rate 0 08/01/22 08:50 Pain Level 1 08/01/22 09:00 Lab/Test Results Lab/Test Results: Laboratory Tests Range/Units 08/01/22 08/01/22 09:06 12:06 Sodium Cancelled Potassium Cancelled Chloride Cancelled Carbon Dioxide Cancelled Anion Gap Cancelled BUN Cancelled Creatinine Cancelled Est GFR (CKD-EPI 2020) Cancelled Glucose Cancelled Calcium Cancelled Total Bilirubin Cancelled AST Cancelled ALT Cancelled Alkaline Phosphatase Cancelled Troponin I Cancelled Cancelled Total Protein Cancelled Albumin Cancelled
[2022-08-01 09:22] LABS: Source Nasal/Nares
[2022-08-01 09:36] LABS: ALT 18 U/L (16-63); AST 12 U/L (15-37); Albumin 3.3 g/dL (3.4-5.0); Alkaline Phosphatase 91 U/L (46-116); Anion Gap 7.9 mmol/L (3-11); BUN 22 mg/dL (7-18); Bilirubin, Total 0.5 mg/dL (0.2-1.0); CO2 25.1 mmol/L (21.0-32.0); CREATININE 1.1 mg/dL (0.70-1.30); Calcium 8.6 mg/dL (8.5-10.1); Chloride 103 mmol/L (98-107); Estimated GFR 71.32 (mL/min/1.73m2); Glucose 350 mg/dL (74-106); Magnesium 1.4 mg/dL (1.8-2.4); NT-proBNP 707 pg/mL (<300); Potassium 3.9 mmol/L (3.5-5.1); Sodium 136 mmol/L (136-145); Total Protein 6.3 g/dL (6.4-8.2); Troponin I < 50 ng/L (<or=60)
--- NOTE | 2022-08-01 09:45 | DI.CT_ITS ---
Exam(s) CT CHEST PE CTA EXAM: CT CHEST PE CTA CLINICAL HISTORY: afib/sob/cp. TECHNIQUE: Imaging Protocol: CT angiography of the chest was performed using pulmonary embolus linda col. Multi planar reconstructions were performed. CONTRAST MATERIAL: Intravenous: Omnipaque 350 Contrast volume: 100 cc COMPARISON: No exams were available for comparison FINDINGS: CHEST: PULMONARY ARTERIES: There are no intraluminal filling defects to suggest acute pulmonary emboli. LUNGS: Mild increased markings both lung bases noted. No prominent infiltrates nor pleural effusions . There is a fissure related 6 millimeter nodule on the right side.. MEDIASTINUM: Small lymph nodes in both hilar regions noted. There is subcarinal adenopathy. There i s no adenopathy in the anterior mediastinal fat. CARDIAC: Cardiomegaly. Moderate coronary artery calcification. No pericardial effusion.The diameter of the ascending thoracic aorta is prominent measuring 4.2 cm. Diameter of the descending thoracic aorta is upper normal. Left atrial enlargement. No calcified mitral valve evident. There is no sig nificant shift of the interventricular septum. PARTIALLY VISUALIZED UPPERMOST ABDOMEN: There are symmetrical hypodense nodules evident in both adren al glands which exhibit Hounsfield unit measurements less than 10 HU and therefore probably benign ad enomas. There is a tiny nonobstructive calculus in the partially visualized right kidney. There is also a 6 cm cyst in the partially visualized right kidney. Also a partially included smaller cyst in the left kidney. OSSEOUS: No significant osseous lesions.No fractures.. IMPRESSION: 1. No evidence of acute pulmonary emboli. No evidence of pulmonary infarction.No pleural effusions. 2. Mild increased markings both lung bases. No prominent infiltrates. 3. Small 6 millimeter fissure related nodule in the right lung. Recommend follow-up CT in 6 months. There is subcarinal adenopathy evident. Also slightly enlarged lymph nodes in both hilar regions. No adenopathy in the anterior mediastinal fat. 4. Cardiomegaly. Left atrial enlargement. No pericardial effusion. Called by myself to ER provider. RADIATION DOSE DELIVERED: 552.95mGy.cm Total DLP DATA REPOSITORY: All CT scans at this facility are submitted to the National Radiology Data Registry (NRDR) Dose Index Registry (DIR) with the [employer] (A[employer]). RADIATION OPTIMIZATION: All CT scans at this facility use at least one of these dose optimization te chniques: automated exposure control; mA and/or kV adjustment per patient size (includes targeted exa ms where dose is matched to clinical indication); or iterative reconstruction.
[2022-08-01 10:17] LABS: COVID-19 PCR Negative (Negative)
[2022-08-01] MEDS: Omnipaque 350 MG/ML 500 ML BTL-Imaging package IJ (10:45)
[2022-08-01] MEDS: Normal Saline - Diluent 50 ML VIAL IV (10:45)
[2022-08-01] MEDS: MAGNESIUM SULFATE 1 GM/100 ML BAG IVPB (10:46)
[2022-08-01] MEDS: Normal Saline Flush 10 ML SYR IVP (10:46)
[2022-08-01 10:55] LABS: Digoxin 0.43 ng/mL (0.90-2.00)
[2022-08-01 12:15] LABS: Troponin I < 50 ng/L (<or=60)
[2022-08-01 12:56] LABS: INR 1.4 (0.9-1.1); PTT Activated 37.2 sec (21.0-27.5); Prothrombin Time 13.8 sec (9.3-11.0)
== END 2022-08-01 15:34 | disposition home or self-care (01) ==
PROVIDERS: Emergency Medicine; Emergency Provider Physician Assistant; PCP Nurse Practitioner Family
DX: R06.00 Dyspnea, unspecified (principal); R07.89 Other chest pain; E11.9 Type 2 diabetes mellitus without complications; I48.91 Unspecified atrial fibrillation; I48.92 Unspecified atrial flutter; Z79.84 Long term (current) use of oral hypoglycemic drugs; Z79.4 Long term (current) use of insulin; Z20.822 Contact with and (suspected) exposure to COVID-19
CPT/HCPCS: 36415; 71275; 80053; 87635; 93005; 96365; 99284; 99285; 80162; 83735; 83880; 84484; 85025; 85610; 85730; 93010; J3475

== ENCOUNTER 2022-10-31 18:13 | Outpatient (REF) | payer MEDICARE, BC, SELFPAY ==
[2022-10-31 20:01] LABS: HCT 44.5 % (40.0-50.0); HGB 14.8 g/dL (13.5-17.5); MCH 31.9 pg (27.0-33.0); MCHC 33.3 % (32.0-36.0); MCV 96 fL (80-95); MPV 10.8 fL (8.0-11.0); Platelet Count 214 10^3/uL (130-400); RBC 4.64 10^6/uL (4.36-5.78); RDW 13.6 % (11.8-14.1); RDW-SD 47.8 fL; WBC 10.93 10^3/uL (4.4-10.8)
== END 2022-10-31 18:14 | disposition home or self-care (01) ==
LOC: NCHCN 18:13
PROVIDERS: PCP Nurse Practitioner Family; Visit Provider Nurse Practitioner Family
DX: D69.59 Other secondary thrombocytopenia (principal)
CPT/HCPCS: 85027

== ENCOUNTER 2022-11-20 02:38 | Outpatient (CLI) | payer MEDICARE, BC, SELFPAY ==
[2022-11-20 16:18] LABS: ALT 24 U/L (16-63); AST 17 U/L (15-37); Alkaline Phosphatase 80 U/L (46-116); Bilirubin, Direct 0.1 mg/dL (0.0-0.2); Bilirubin, Total 0.6 mg/dL (0.2-1.0); TSH 4.99 uIU/mL (0.36-3.74); Total Protein 7.4 g/dL (6.4-8.2)
== END 2022-11-20 02:39 | disposition home or self-care (01) ==
PROVIDERS: PCP Nurse Practitioner Family; Visit Provider Nurse Practitioner Family
DX: I48.19 Other persistent atrial fibrillation (principal); R94.6 Abnormal results of thyroid function studies
CPT/HCPCS: 36415; 80076; 84439; 84443

== ENCOUNTER 2022-12-13 01:11 | Outpatient (CLI) | payer MEDICARE, BC, SELFPAY ==
--- NOTE | 2022-12-13 14:00 | DI.US_ITS ---
APPROVED REPORT EXAM: Comprehensive 2D, Doppler, and color-flow Echocardiogram Patient Location: Out-Patient Indications: persistent afib Other Information Study Quality: Adequate Conclusion Normal left ventricular chamber size and wall thickness. Estimated ejection fraction is 50 to 55%. There are no segmental wall motion abnormalities Normal right ventricular size and systolic function Left atrium is moderately dilated. Right atrial size is normal Aortic valve is trileaflet with mild regurgitation Structurally normal mitral valve with moderate regurgitation Normal tricuspid valve with mild regurgitation. Estimated right ventricular systolic pressure is 27 mmHg Mildly dilated ascending aorta measuring 3.48 cm Wall motion Left Ventricle The left ventricle is normal size. Left ventricular systolic function is mildly decreased. There is n ormal left ventricular wall thickness. There are no segmental wall motion abnormalities There is no v entricular septal defect visualized. LVEF is 50-55%. Right Ventricle The right ventricle is normal size. Right ventricular systolic function is grossly normal. The RVSP i s 26.9 mmHg. Atria Left atrium is moderately dilated. Right atrium is normal The interatrial septum is intact with no ev idence for an atrial septal defect. Aortic Valve Aortic valve is trileaflet. The aortic valve is normal in structure. There is no aortic valvular sten osis. Mild aortic regurgitation. Mitral Valve The mitral valve is normal in structure. No evidence of mitral valve stenosis. Moderate mitral regurg itation. Tricuspid Valve The tricuspid valve is normal in structure. There is no tricuspid valve stenosis. Mild tricuspid regu rgitation. Pulmonic Valve The pulmonary valve is normal in structure. There is no pulmonic valvular stenosis. There is no pulmo sindhu valvular regurgitation. Great Vessels The aortic root is normal in size. The ascending aorta is mildly dilated. Aortic arch is normal in ca liber. IVC is normal in size and collapses >50% with inspiration. Pericardium There is no pericardial effusion. 2D Dimensions IVSD d PLAX 0.78 cm M: 0.6-1.2 LV Vol A2C d MOD 227.7 mL LVPW d PLAX 0.79 cm M: 0.6 - 1.2 LV Vol A4C d MOD 155.2 mL LVID d PLAX 5.83 cm M: 4.2 - 5.8 LA vol/ BSA A4C s A-L 50.4 mL/m2 LVDs 3.50 cm M: 2.5 - 4.0 LA Area A4C s MOD 30.17 cm2 Ao Root d 3.41 cm M: 3.1 - 3.7 LV EF A4C MOD 50.9 % Ao Asc Diam d 3.48 cm M: 2.6 - 3.4 LV EF A2C MOD 51.5 % LV EF Teichholz 69.5 % LV EF Biplane MOD 50.9 % LVEF (Mendoza's) 50.87 % M: 52 - 72 SV 95.28 mL LV Volume 135.77 mL M: 62 - 150 SV Index 42.86 mL/m2 LV Volume Index 60.88 mL/m2 M: 34 - 74 LV Vol Biplane MOD 187.3 mL FS 39.70 % M-Mode TAPSE 1.85 cm (M/F) >1.7 LV Diastology MV E' medial 0.086 (>0.07 m/s) E/A Ratio 1.3 LV E/e MED 6.65 (<14) MV E Vmax 0.57 (0.4-1.3 m/s) MV E' lateral 0.143 (>0.1 m/s) MV A Vmax 0.45 (0.4-1.3 m/s) LV E/e LAT 4.00 (<14) MV E/A Ratio 1.27 MV E/E' medial 6.65 MV E/E' lateral 4.01 Aortic Valve LVOT Area 4.67 cm2 AoV Area Vmax 3.11 cm2 LVOT Vmax 0.73 m/s AoV Area/ BSA (Vmax) 1.40 cm2/m2 LVOT Mean Bubba. 0.48 m/s KATRINA Mean Bubba. 2.57 cm2 LVOT Peak Grad 2.2 mmHg KATRINA Mean Bubba. Index 1.15 cm2/m2 LVOT Mean Grad 1.0 mmHg LVOT VTI 0.148 m LVOT Diam s 2.40 cm AoV Vmax 1.10 m/s Velocity Ratio 0.66 AoV Mean Bubba. 0.87 m/s AoV Peak Grad 4.8 mmHg LVOT SV 68.97 mL AoV Mean Grad 3.2 mmHg AoV VTI 0.176 m AoV Area VTI 3.93 cm2 AoV Area/ BSA (VTI) 1.77 cm/m2 Mitral Valve MV DT 324 (160-240 msec) MV PHT 94 msec MV Area PHT 2.34 cm2 MV VTI 0.246 m MV Area VTI 2.80 (4.0-6.0 cm2) Pulmonary Valve PV Vmax 0.69 (0.5-1.5 m/s) RVOT Peak Gr. 0.45 mmHg PV Peak Grad 1.9 mmHg RVOT Mean Gr. 0.25 mmHg PV Mean Grad 1.3 mmHg RVOT VTI 0.047 m PV VTI 0.113 m RVOT Vmax 0.34 m/s Tricuspid Valve TR Peak Grad 23.9 mmHg TR Vmax 2.44 m/s RA Pressure 3.00 mmHg RVSP (TR) 26.9 mmHg
== END 2022-12-13 01:31 ==
LOC: DI 01:12
PROVIDERS: PCP Nurse Practitioner Family; Visit Provider Internal Medicine Cardiovascular Disease
DX: I48.19 Other persistent atrial fibrillation (principal); I71.23 Aneurysm of the descending thoracic aorta, without rupture
CPT/HCPCS: 93306

== ENCOUNTER → 2023-01-07 11:19 | Outpatient (BNVA) | payer MEDICARE, BC, SELFPAY | PROVIDERS: PCP Nurse Practitioner Family; Visit Provider Internal Medicine Cardiovascular Disease | DX: I42.9 Cardiomyopathy, unspecified (principal); I48.91 Unspecified atrial fibrillation; Z79.01 Long term (current) use of anticoagulants | CPT/HCPCS: 99214 ==

== ENCOUNTER 2023-03-11 00:19 | Inpatient (IN) | payer MEDICARE, BC, SELFPAY ==
[2023-03-11] VITALS (200 sets, daily range): BP systolic 94–166; BP diastolic 51–106; PULSE 45–82; RESP 7–29; TEMP 35.5–37.7; O2SAT 75–100
--- NOTE | 2023-03-11 | DI.US_ITS ---
Exam(s) US ABDOMEN EXAM: US ABDOMEN CLINICAL HISTORY: abd pain, hypotension TECHNIQUE: Ultrasound of complete upper abdomen performed using standard protocol. COMPARISON: Recent CT scan reviewed. FINDINGS: There is no ascites evident. LIVER: There are no hepatic lesions evident nor obvious dilatation of intrahepatic ducts. GALLBLADDER/BILIARY: Gallbladder wall is thickened-edematous. Wall thickness is 5 mm. There is mild pericholecystic fluid. Gallbladder contains some sludge. The common hepatic duct isnot dilated, measuring 3-5mm. PANCREAS: There is no evidence of pancreatic mass nor dilatation of the pancreatic duct. SPLEEN: The spleen is not enlarged and there are no intrasplenic lesions evident. KIDNEYS:There are multiple cysts in the kidneys, the largest on the right side measuring 6 cm. Also small nonobstructive calculi bilaterally. ABDOMINAL AORTA: There is no evidence of abdominal aortic aneurysm. IVC: Normal diameter where visualized. IMPRESSION: 1. Although there are no obvious calcified gallstones, gallbladder is mildly distended and edematous . Contains sludge. Consistent with cholecystitis. CBD is not dilated. 2. Please note that the CT scan revealed some mural edema in the adjacent duodenum. No free air mari dent on CT scan.. 3. Bilateral nonobstructive nephrolithiasis. No solid renal masses. DATA REPOSITORY:
--- NOTE | 2023-03-11 00:15 | RT.EKG_ITS ---
APPROVED REPORT Exam: Resting ECG Reason for Exam: chest pain Patient Location: E HR:48 bpm ECG Measurements Heart Rate 48 AXIS [place] 182 P 22 QRSd 94 QRS -30 QT 675 T 18 QTc 603 Conclusion Sinus bradycardia...rate< 60 Left axis deviation...QRS axis (-30,-90) Prolonged QT interval...QTc >500mS
[2023-03-11] MEDS: Dextrose 50%-Water 25 GM/50 ML SYR IVP (00:29)
--- NOTE | 2023-03-11 00:30 | RT.EKG_ITS ---
APPROVED REPORT Exam: Resting ECG Reason for Exam: chest pain Patient Location: E HR:42 bpm ECG Measurements Heart Rate 42 AXIS [place] 201 P 23 QRSd 102 QRS -16 QT 528 T 29 QTc 442 Conclusion Sinus bradycardia...rate< 60
[2023-03-11 00:36] LABS: HCT 45.7 % (40.0-50.0); HGB 15.5 g/dL (13.5-17.5); MCH 32.6 pg (27.0-33.0); MCHC 33.9 % (32.0-36.0); MCV 96 fL (80-95); MPV 10.2 fL (8.0-11.0); Platelet Count 231 10^3/uL (130-400); RBC 4.75 10^6/uL (4.36-5.78); RDW 13.1 % (11.8-14.1); RDW-SD 46.9 fL; WBC 12.38 10^3/uL (4.4-10.8)
--- NOTE | 2023-03-11 00:45 | DI.CT_ITS ---
Exam(s) CT ABDOMEN PELVIS W EXAM: CT ABDOMEN PELVIS W CLINICAL HISTORY: epigastric pain. TECHNIQUE: Imaging Protocol: Axial computed tomography images with coronal and sagittal reformatted images were created and reviewed CONTRAST MATERIAL: Intravenous: Omnipaque-350 100cc Oral: None COMPARISON: CT CT CHEST PE CTA from 08/01/2022 FINDINGS: VISUALIZED LUNG BASES: Atelectasis in lung bases. No pleural effusions.. ABDOMEN: There is no ascites. LIVER: There are no focal hepatic lesions evident. No dilated intrahepatic ducts. GALLBLADDER/BILIARY: Gallbladder is moderately distended. No obvious radiopaque calculi. Mild sludg e. CBD is not dilated. PANCREAS: No evidence of pancreatic mass nor dilatation of the pancreatic duct. SPLEEN: Spleen is not enlarged. No obvious intrasplenic lesions. Splenic and portal veins are paten t. ADRENALS: Bilateral relatively hypodense adrenal nodules are noted and appear unchanged in size from chest CT scan of 08/01/2022. The right adrenal nodule measures 3.3 x 1.7 cm. The left adrenal nodul e measures 0.7 by 1.8 cm. KIDNEYS:Multiple bilateral benign cysts, largest in the right kidney measuring 6.5 cm by 5 cm. Small 1-2 millimeter calculi evident in both kidneys, more numerous on the right side. No true hydronephr osis nor hydroureter. No radiopaque calculi in the lower ureters nor in the urinary bladder. Prosta te gland size upper normal. Seminal vesicles unremarkable.. ABDOMINAL AORTA: Abdominal aorta is not enlarged. LYMPH NODES:There is no retroperitoneal nor paraaortic adenopathy. ABDOMINAL WALL: No evidence of significant anterior abdominal wall nor inguinal hernia. GI: The proximal duodenum appears edematous, best seen on the coronal images.. No adjacent free air. No diverticuli. Small hiatal hernia. PELVIS: GI: No evidence of appendicitis.No evidence of sigmoid diverticulitis. LYMPH NODES: There is no intrapelvic nor inguinal adenopathy. REPRODUCTIVE: Prostate size upper normal. URINARY BLADDER: No calculi nor obvious masses evident OSSEOUS: No acute fractures. No lytic osseous lesions evident. Small sclerotic density in the lateral aspect the right 9th rib is unchanged from July 2022. IMPRESSION: 1. Gallbladder distension with mild edema. Recommend ultrasound. 2. There appears to be some edema of the duodenum in this patient with epigastric pain. Recommend up per endoscopy. There is also a small hiatal hernia. 3. Bilateral nonobstructive renal calculi measuring up to 2 mm. No hydronephrosis. Benign renal cys ts measuring up to 6 cm. The cysts do not require further workup. There are no solid renal masses. 4. Bilateral adrenal masses which appear unchanged from 08/01/2022. Recommend follow-up noninfused M RI with chemical shift imaging in and out of phase imaging sequences for added specificity. 5. Small sclerotic non expansile bone density in the lateral aspect of the right 9th rib noted which is unchanged from 08/01/2022. No lytic bone lesions identified. No fractures. RADIATION DOSE DELIVERED: 1,374.17mGy.cm Total DLP DATA REPOSITORY: All CT scans at this facility are submitted to the National Radiology Data Registry (NRDR) Dose Index Registry (DIR) with the [employer] ([employer]). RADIATION OPTIMIZATION: All CT scans at this facility use at least one of these dose optimization te chniques: automated exposure control; mA and/or kV adjustment per patient size (includes targeted exa ms where dose is matched to clinical indication); or iterative reconstruction.
--- NOTE | 2023-03-11 00:45 | DI.RAD_ITS ---
Exam(s) XR PORTABLE CHEST AP EXAM: XR PORTABLE CHEST AP CLINICAL HISTORY: cough. TECHNIQUE: 2D digital imaging was performed. COMPARISON: CR XR CHEST 2V PA LATERAL from 11/29/2021 FINDINGS: Single AP portable view. Heart size is upper normal. The mediastinum is not widened. Scarring or platelike atelectasis again noted in the left lung base. No new infiltrates nor pleural effusions. No pulmonary edema. IMPRESSION: No acute pulmonary findings on this single lordotic AP portable view of the chest. DATA REPOSITORY: RADIATION DOSE DELIVERED:
--- NOTE | 2023-03-11 00:47 | W.ED.GENAD ---
Discharge Plan Disposition Patient Disposition: Admit to [facility] Discharge Details Clinical Impression: Acute hypotension, Bradycardia, Epigastric abdominal pain, Gastric distention Primary Care Provider: Domenica Atkins ED Provider: Almas Maciel Home Meds and New Rx's Prescriptions: No Action sildenafil [Viagra] 50 mg tablet 50 mg PO DAILY PRN (Reason: sexual activity) Qty: 10 0RF Hold Instructions: Home Medication placed on hold at Doctor's office Rx Instructions: administer 30 minutes to 4 hours before activity Metamucil 3.4 gram/5.4 gram powder 1 tbsp PO DAILY Rx Instructions: mix into at least 8 oz of water or juice before administering amiodarone 200 mg tablet 100 mg PO DAILY Farxiga 5 mg tablet 10 mg PO DAILY nystatin 100,000 unit/gram powder 1 applic topical QID Qty: 30 0RF Rx Instructions: apply nystatin powder to bilateral groin area every 6 hours x 7-10 days melatonin 10 mg capsule 20 mg PO HS PRN simethicone [Gas Relief (simethicone)] 80 mg tablet,chewable 80 mg PO BID-QID PRN glimepiride 4 mg tablet 4 mg PO BID Levemir FlexTouch U100 Insulin 100 unit/mL (3 mL) insulin pen 40 unit subcut QHS (DME) pen needle, diabetic [TRUEplus Pen Needle] 31 gauge x 1/4 needle See Rx Instructions .Route Rx Instructions: As directed metoprolol succinate 100 mg tablet extended release 24 hr 100 mg PO DAILY rivaroxaban 20 mg tablet 20 mg PO DAILY Rx Instructions: must administer with evening meal metformin 1,000 MG tablet 1,000 mg PO BID omeprazole 20 mg capsule,delayed release(DR/EC) 20 mg PO BID pravastatin 20 mg tablet 20 mg PO BID Probiotic with Prebiotic 1 billion-250 cell-mg capsule 250 cap PO omega-3 fatty acids-fish oil 1 EACH capsule 1,000 mg PO BID Multi Vitamin W Minerals 1 tab BID potassium citrate 10 mEq (1,080 mg) tablet extended release 10 meq PO BID terbinafine HCl 1 % Cream 1 applic TOPICAL BID Medical Decision Making Medical decision making MDM: Summary: Patient presents to the emergency department ill-appearing hypotensive bradycardic complaining of epigastric pain. Bedside ultrasound echocardiography and rapid ultrasound and shock exam was performed with only shows a very collapsed vena cava EKG performed showed shows sinus bradycardia. Sepsis protocol was initiated for he met SIRS criteria and IV fluids at normal saline 30 cc/kg was given as well as Zofran blood cultures were obtained and a lactic acid was done which showed an elevated lactic acid at 2.9. With fluid resuscitation IV fluids the patient's hypotension resolved is bradycardic rate increased. Chest x-ray and a CT scan of the chest abdomen pelvis were obtained with the only positive findings are renal cyst and gallbladder and stomach distention. Bedside ultrasound of the gallbladder was also obtained which shows a distended gallbladder with no stones. Patient has continued to improve and is concerning if he had true sepsis for now his lactic acid is 1.9 but he has diabetic gastroparesis with the distended abdomen causing him to have a vasovagal episode to get hypotensive bradycardic and diaphoresis. Troponins were done which were negative as well Data Review Analysis All the data on this patient was reviewed by me including laboratory and imaging studies as well as bedside studies performed by me Independent review of Studies Imaging CT scan of the abdomen and pelvis and CT scan of the chest were obtained shows no abnormalities of her distended abdomen and renal cysts. Uyimy-iu-eivl ultrasound exam showed normal echo with bradycardia and a collapsed inferior vena cava compatible with hypotension Labs show Lab: Increasing white count at 12.9 with a left shift also mild elevation of the BUN to creatinine ratio which supports hypovolemia but normal LFTs normal urine. In addition initial lactic acid of 2.9 that normalized after IV fluids to 1.9 Risk Stratification: Patient who came with undifferentiated hypotension and bradycardia who had a septic work-up with blood cultures IV fluids and empiric antibiotics. At this point there is no source of infection and the only possibility is a distended abdomen but the radiologist states that he has no bowel obstruction. Undifferentiated hypotension has been corrected with IV fluids Differential Diagnosis: 1. Undifferentiated hypotension 2. Sepsis 3.acute coronary syndrome 4. Aortic dissection or AAA 5. Consultants: I have discussed with the hospitalist who has agreed to give the patient Shared disposition: Patient understands that he is currently admitted to the hospital for further studies and hydration he will be kept n.p.o. Impression: Medical Records Medical records reviewed: Yes I reviewed the patient's medical records. Lab Data Lab results reviewed: Yes I reviewed the patient's lab results. Labs: RUN DATE: 03/11/23 [facility] PAGE 1 RUN TIME: [id number] RUN USER: [place] [address] Luz Heller MD PATIENT REPORT PATIENT: Wilber Ovalles LOC: ER U #: [id number] /SX: 1950 M ROOM: RE03/11/[address]: ALMAS MACIEL MD STATUS: REG ER BED: DIS: SPEC #: [id number] KARLA: 03/11/23 STATUS: COMP REQ #: [id number] RECD: 03/11/[address]: ALMAS MACIEL MD ENTERED: 03/11/23 [facility] DR: JAJA BHAKTA,DOMENICA FAX #: ORDERED: Lactate Test Result Flag Reference Verified Lactate 1.9 H 0.6-1.4 mmol/L 03/11/23 Patient: Wilber Ovalles LABORATORY Acct#[id number] Unit#[id number] ECG Data Attestation: I personally reviewed and interpreted this ECG (s) as follows: Interpretation: Sinus bradycardia heart rate of [address]-T changes HPI General Date/Time Provider Initiated Documentation: 03/11/23 00:20. HPI Narrative: Patient presents emergency department brought in by the ambulance after he woke up at night with nausea vomiting and epigastric abdominal pain which describes as chest pain. States that he had a episode of vomiting got very dizzy and his called the ambulance. The ambulance brought him in and he is very diaphoretic rinaldi appearing. In the ambulance his heart rate was in the 40s and his pressure was 70/40. Patient refers that he is got this sharp pain in the midepigastric area and states that he ate at 7 PM pizza. Denies any fever denies any chills denies any shortness of breath Related Data Home Medications Medication Instructions Recorded Confirmed metformin 1,000 mg tablet 1,000 mg PO BID 07/11/15 03/11/23 Multi Vitamin W Minerals 1 tab BID 08/03/15 03/11/23 omega-3 fatty acids-fish oil 300 1,000 mg PO BID 08/03/15 03/11/23 mg-1,000 mg capsule potassium citrate 10 mEq (1,080 10 meq PO BID 07/12/20 03/11/23 mg) tablet,extended release sildenafil 50 mg tablet (Viagra) 50 mg PO DAILY PRN sexual activity 09/26/20 03/11/23 #10 tabs omeprazole 20 mg capsule,delayed 20 mg PO BID 12/22/20 03/11/23 release melatonin 10 mg capsule 20 mg PO HS PRN 12/26/20 03/11/23 simethicone 80 mg chewable tablet 80 mg PO BID-QID PRN 12/26/20 03/11/23 (Gas Relief (simethicone)) glimepiride 4 mg tablet 4 mg PO BID 11/02/21 03/11/23 pravastatin 20 mg tablet 20 mg PO BID 11/02/21 03/11/23 terbinafine HCl 1 % topical cream 1 applic topical BID 11/20/21 03/11/23 psyllium husk 3.4 gram/5.4 gram 1 tbsp PO DAILY 12/19/21 03/11/23 oral powder (Metamucil) metoprolol succinate 100 mg 100 mg PO DAILY 07/06/22 03/11/23 tablet,extended release 24 hr pen needle, diabetic 31 gauge x 07/06/22 01/07/2309/05 (TRUEplus Pen Needle) rivaroxaban 20 mg tablet 20 mg PO DAILY 07/06/22 03/11/23 amiodarone 200 mg tablet 100 mg PO DAILY 01/07/23 03/11/23 dapagliflozin propanediol 5 mg 10 mg PO DAILY 01/07/23 03/11/23 tablet (Farxiga) insulin detemir U-100 100 unit/mL 40 unit subcut QHS 01/07/23 03/11/23 (3 mL) subcutaneous pen (Levemir FlexTouch U-100 Insulin) nystatin 100,000 unit/gram topical 1 applic topical QID #30 grams 01/30/23 03/11/23 powder Bacillus coagulans-inulin 1 250 cap PO 02/27/23 billion cell-250 mg capsule (Probiotic with Prebiotic) Previous Rx's Medication Instructions Recorded sildenafil 50 mg tablet (Viagra) 50 mg PO DAILY PRN sexual activity 09/26/20 #10 tabs nystatin 100,000 unit/gram topical 1 applic topical QID #30 grams 01/30/23 powder Allergies Allergy/AdvReac Type Severity Reaction Status Date / Time amiodarone Allergy Severe as Verified 03/11/23 01:06 Sulfone drug-induced ITP thrombocytopenia metoprolol Allergy Severe as Verified 03/11/23 01:06 Sulfone drug-induced ITP thrombocytopenia tamsulosin [From Flomax] Allergy Severe Unverified 03/11/23 01:06 torsemide Allergy Severe as Verified 03/11/23 01:06 Sulfone drug-induced ITP thrombocytopenia dofetilide AdvReac elongated Verified 03/11/23 01:06 EKG General Stated Complaint: Chest Pain DEDE: 2 Review of Systems Narrative: Review of Systems: Constitutional: No fevers, chills, severe diaphoresis Eye: No recent visual problems ENT: No ear pain, nasal congestion, sore throat Respiratory: No shortness of breath, cough Cardiovascular: No Chest pain, palpitations, syncope Gastrointestinal: Nausea and vomiting no diarrhea Genitourinary: No hematuria Macario/Lymph: Negative for bruising tendency, swollen lymph glands Endocrine: Negative for excessive thirst, excessive hunger Musculoskeletal: No back pain, neck pain, joint pain, muscle pain, decreased range of motion Integumentary: No rash, pruritus, abrasions Neurologic: Alert & oriented X 4 Psychiatric: No anxiety, depression PFSH All Active Problems Acute hypotension (Acute) Bradycardia (Acute) Epigastric abdominal pain (Acute) Gastric distention (Acute) Nail dystrophy (Acute) Mitral regurgitation (Chronic) Cardiomyopathy (Acute) Tachycardia (Acute) A-fib (Chronic) PAC (premature atrial contraction) (Acute) Abnormal chest x-ray (Acute) Shortness of breath (Acute) Knee pain (Acute) Knee swelling (Acute) Medical History Diabetes mellitus Erectile dysfunction GERD (gastroesophageal reflux disease) Hemorrhoids Hyperlipidemia Lower urinary tract symptoms (LUTS) Nocturia Onychomycosis JEEVAN (obstructive sleep apnea) Strabismus Family History Paternal Grandfather Heart attack Diabetes Amputation leg, bilat Paternal Grandmother , in house fire No problems noted. Father , heart attack at 65 with pneumonia 85 Diabetes Heart attack Lung cancer Mother Dementia Sister Diabetes Heart attack Brother Diabetes Heart attack Maternal Grandfather , of [place] at 70 Diabetes Heart disease Heart attack Maternal Grandmother , passed at 19 giving to mother No problems noted. Social History Smoking/Tobacco Use Status: Never Smoking risk assessment performed?: Yes Alcohol Intake: never Drug use: Never Substance use type: does not use Do you feel safe at home: Yes Do you feel safe in your relationship?: Yes Exam Narrative Exam Narrative: Exam; vitals signs as reported above hypotensive and bradycardic Constitutional; ill appearing in acute distress profusely diaphoretic General: cooperative, ill-appearing HEENT: Head: normal to inspection, no palpable skull fracture and normocephalic Eyes: l: appearance normal, both eyes and all related structures ]Pupils: PERRL EOM: EOM intact bilaterally Direct ophthalmoscopy: normal light reflex, normal conjunctiva, normal visual acuity Neck no JVD, supple Neck: normal visual inspection, full ROM and no lymphadenopathy Chest Chest: normal inspection of the chest Respiratory : normal respiratory effort and able to speak in complete sentences Cardio Rate: Bradycardic rate Rhythm: Irregularly irregular rhythm normal heart sounds S1 and S2 no murmurs, gallops, or rubs GI Inspection: Distended abdomen normal bowel sounds, soft, non tender,, no organomegally Back/Spine/ no CVA tenderness Thoracic/Lumbar Spine: no tenderness or deformities Skin no rashes or lesions Neuro: patient alert and no meningeal signs, Cranial Nerves: CN's II-XI intact bilaterally, Cognition: normal cognition, Speech: speech normal, Gait: normal gait, Depp tendon reflexes normal 2+ Extremities, no edema, full range of motion, normal strength Course Reevaluation(s) Initial Evaluation: Patient hypotensive bradycardic ill-appearing with a EKG does not show any abnormalities except for bradycardia,POCUS echocardiography and [place] exam shows normal heart examination with bradycardia gastric distention with a collapsed inferior vena cava compatible with hypovolemia Time: 01:30 Reevaluation: After IV fluids normal saline at 30 cc/kg patient looks much better he is less bradycardic and his blood pressure is normal Consultations Consultation #1: Discussed with the hospitalist will admit the patient to the hospital Vital Signs Vital signs: Vital Signs Pulse 45 L 03/11/23 00:19 Respiratory Rate 24 03/11/23 00:19 Blood Pressure 94/51 L 03/11/23 00:19 Pulse Oximetry 93 03/11/23 00:19 Pulse 45 L 03/11/23 00:19 Respiratory Rate 24 03/11/23 00:19 Blood Pressure 94/51 L 03/11/23 00:19 Pulse Oximetry 93 03/11/23 00:19 Oxygen Delivery Method Room Air 03/11/23 00:19 Oxygen Flow Rate 0 03/11/23 00:19 Lab/Test Results Lab/Test Results: 03/11/23 00:37 Blood Blood Culture - Pending 03/11/23 00:37 Blood Blood Culture - Pending Laboratory Tests Range/Units 03/11/23 00:25 WBC (4.4-10.8) 10^3/uL 12.38 H RBC (4.36-5.78) 10^6/uL 4.75 Hgb (13.5-17.5) g/dL 15.5 Hct (40.0-50.0) % 45.7 MCV (80-95) fL 96 H MCH (27.0-33.0) pg 32.6 MCHC (32.0-36.0) % 33.9 RDW (11.8-14.1) % 13.1 Plt Count (130-400) 10^3/uL 231 MPV (8.0-11.0) fL 10.2 Critical Care Time Critical Care Time Critical Care Time: Yes Total Critical Care Time: 45 Attestation: Critical time of this patient with undifferentiated hypotension with pending deterioration of the cardiovascular system POCUS Exam (ED) Limited Cardiac Exam DATE OF EXAM: 03/11/23 TIME OF EXAM: 12:30 PROVIDER THAT PERFORMED THE STUDY: Almas Maciel IS THIS A REPEAT EXAM DURING THIS ENCOUNTER: no REASON FOR EXAM: Hypotension and Hypovolemic shock VISUALIZED STRUCTURES: Four Chambers, Left atrium, Left ventricle, LVOT, Right atrium, Right ventricle, Aortic valve, Mitral valve, Interventricular septum and IVC VIEW OBTAINED: Apical 4-Chamber, Parasternal long-axis, Parasternal short-axis and Subxiphoid PERTINENT FINDINGS/IMPRESSION: IVC inspiratory collapsability (IVC completely collapsed) and LV dysfunction (Bradycardia with good contractility); No pericardial effusion and No RV dysfunction Exam complete [place] Exam DATE OF EXAM: 03/11/23 TIME OF EXAM: 12:35 PROVIDER THAT PERFORMED THE STUDY: Almas Maciel REASON FOR EXAM: Hypotension and Shock VISUALIZED STRUCTURES: Aorta, Bladder, Cardiac Four Chambers, Heart, Inferior Vena Cava, Lung/left side, Lung/right side, Frank's pouch and Renal artery PERTINENT FINDINGS/IMPRESSION: Abnormal IVC, details of abnormalities: bradycardia Echocardiography/Transthoracic Limited Exam: Exam Complete Chest Limited Exam: Exam Complete Abdominal Limited Exam: Exam Complete Retroperitoneal Limited Exam: Exam Complete Vital Signs and Lab Results Vital Signs Most Recent Vital Signs in EMR: Most Recent Vital Signs Temp Pulse Resp BP Pulse Ox 36.6 C 67 10 L 122/70 86 L 03/11/23 00:19 03/11/23 05:00 03/11/23 05:04 03/11/23 05:00 03/11/23 05:04 Point of Care Results Point of Care Results: Finger Stick Blood Glucose 73 03/11/23 01:08 Lab Results 03/11/23 00:25 03/11/23 00:25 Blood Type / Crossmatch: No Data to Display Complete Blood Count: White Blood Count 12.38 10^3/uL (4.4-10.8) H 03/11/23 00:25 Red Blood Count 4.75 10^6/uL (4.36-5.78) 03/11/23 00:25 Hemoglobin 15.5 g/dL (13.5-17.5) 03/11/23 00:25 Hematocrit 45.7 % (40.0-50.0) 03/11/23 00:25 Platelet Count 231 10^3/uL (130-400) 03/11/23 00:25 Venous Blood Lactate 1.9 mmol/L (0.6-1.4) H 03/11/23 04:45 Complete Metabolic Panel: Sodium 145 mmol/L (136-145) 03/11/23 00:25 Potassium 3.9 mmol/L (3.5-5.1) 03/11/23 00:25 Chloride 108 mmol/L (98-107) H 03/11/23 00:25 Carbon Dioxide 22.7 mmol/L (21.0-32.0) 03/11/23 00:25 BUN 21 mg/dL (7-18) H 03/11/23 00:25 Creatinine 1.3 mg/dL (0.70-1.30) 03/11/23 00:25 Est GFR (CKD-EPI 2020) 58.01 (mL/min/1.73m2) 03/11/23 00:25 Calcium 9.0 mg/dL (8.5-10.1) 03/11/23 00:25 Albumin 3.7 g/dL (3.4-5.0) 03/11/23 00:25 Glucose 156 mg/dL (74-106) H 03/11/23 00:25 Liver Function Panel: Alanine Aminotransferase (ALT/SGPT) 22 U/L (16-63) 03/11/23 00:25 Aspartate Amino Transf (AST/SGOT) 15 U/L (15-37) 03/11/23 00:25 Coagulation Panel: INR International Normalized Ratio 1.1 (0.9-1.1) 03/11/23 00:25 Prothrombin Time 11.0 sec (9.3-11.0) 03/11/23 00:25 Activated Partial Thromboplast Time 30.2 sec (21.5-31.9) 03/11/23 00:25 Cardiac Panel: Troponin I < 50 ng/L (<or=60) 03/11/23 NT-Pro-B Natriuret Pep 157 pg/mL (<300) 03/11/23 Arterial Blood Gas: No Data to Display Venous Blood Gas: No Data to Display Pancreas Panel: Lipase 26 U/L (16-77) 03/11/23 00:45 Thyroid Panel: No Data to Display Infectious Disease: No Data to Display Blood Cultures: No Data to Display Toxicology Panel: No Data to Display
[2023-03-11 00:52] LABS: INR 1.1 (0.9-1.1); PTT Activated 30.2 sec (21.5-31.9)
[2023-03-11 00:56] LABS: Lactate 2.9 mmol/L (0.6-1.4)
[2023-03-11 00:58] LABS: ALT 22 U/L (16-63); AST 15 U/L (15-37); Albumin 3.7 g/dL (3.4-5.0); Alkaline Phosphatase 78 U/L (46-116); Anion Gap 14.3 mmol/L (3-11); BUN 21 mg/dL (7-18); Bilirubin, Total 0.6 mg/dL (0.2-1.0); CO2 22.7 mmol/L (21.0-32.0); CREATININE 1.3 mg/dL (0.70-1.30); Chloride 108 mmol/L (98-107); Estimated GFR 58.01 (mL/min/1.73m2); Glucose 156 mg/dL (74-106); Potassium 3.9 mmol/L (3.5-5.1); Sodium 145 mmol/L (136-145); Total Protein 6.6 g/dL (6.4-8.2); Troponin I < 50 ng/L (<or=60)
[2023-03-11] MEDS: Normal Saline 1,000 ML 3560 ML IV (00:59)
[2023-03-11] MEDS: MORPHine 4 MG/ML SYR (00:59)
[2023-03-11] MEDS: Dextrose 50%-Water 25 GM/50 ML SYR (01:01)
[2023-03-11 01:04] LABS: NT-proBNP 157 pg/mL (<300)
[2023-03-11 01:14] LABS: Lipase 26 U/L (16-77)
--- NOTE | 2023-03-11 01:15 | DI.CT_ITS ---
Exam(s) CT CHEST W EXAM: CT CHEST W CLINICAL HISTORY: chest pain. TECHNIQUE: Multi planar reconstructions were performed. CONTRAST MATERIAL: Omnipaque 350; 75 cc COMPARISON: CT CT CHEST PE CTA from 08/01/2022 FINDINGS: CHEST: LUNGS: There is some atelectasis noted in both lung bases. No prominent infiltrates. No pleural eff usions. The previously described fissure related nodule in the right lung seen on CT scan July 04 is less evident on the present study. No new pulmonary nodules evident MEDIASTINUM: No obvious hilar adenopathy. Slightly enlarged subcarinal lymph nodes are again noted. CARDIAC: Heart size upper normal. No pericardial effusion.Caliber of the thoracic aorta is within no rmal limits. VISUALIZED UPPER ABDOMEN:Small hiatal hernia. Hepatic steatosis. Bilateral adrenal nodules which ar e unchanged from 08/01/2022. Renal cysts partially visualized. OSSEOUS: No significant osseous lesions.No acute fractures evident.. IMPRESSION: 1. There is atelectasis in both lung bases. Slightly more prominent on the left side. There are no pleural effusions. No ominous pulmonary nodules. 2. Enlarged subcarinal lymph nodes again noted, unchanged. Presently no obvious hilar adenopathy. 3. Small hiatal hernia. See separate dictation for abdomen pelvis CT. RADIATION DOSE DELIVERED: 712.4mGy.cm Total DLP DATA REPOSITORY: All CT scans at this facility are submitted to the National Radiology Data Registry (NRDR) Dose Index Registry (DIR) with the [employer] (ACR). RADIATION OPTIMIZATION: All CT scans at this facility use at least one of these dose optimization te chniques: automated exposure control; mA and/or kV adjustment per patient size (includes targeted exa ms where dose is matched to clinical indication); or iterative reconstruction.
[2023-03-11] MEDS: Normal Saline - Diluent 50 ML VIAL IV ×2 (01:37→01:44)
[2023-03-11] MEDS: Omnipaque 350 MG/ML 100 ML BTL IJ ×2 (01:37→01:44)
[2023-03-11] MEDS: HYDROmorphone 2 MG/ML SYR 0.5 MG IVP ×3 (02:05→08:07)
--- NOTE | 2023-03-11 02:17 | DI.VRAD_ITS ---
PROCEDURE INFORMATION: Exam: CT Abdomen And Pelvis With Contrast Exam date and time: 03/11/2023 1:21 AM Age: 73 years old Clinical indication: Abdominal pain; Epigastric TECHNIQUE: Imaging protocol: Computed tomography of the abdomen and pelvis with contrast. Contrast material: OMNIPAQUE 350; Contrast volume: 100 ml; Contrast route: INTRAVENOUS (IV); COMPARISON: CR ABDOMEN FLAT PLATE 04/10/2016 3:01 PM FINDINGS: Lungs: Streaky opacity at the lung bases, probably atelectasis and/or scarring. Diaphragm: 3.6 cm fluid-filled hiatal hernia. Liver: Normal appearing liver. Gallbladder and bile ducts: Gallbladder moderately distended. Layering relatively hyperdense material in the gallbladder neck, probably stones or sludge. Hazy indistinctness of the gallbladder margins on the coronal series and suggestion of fluid between the gallbladder and the liver. No biliary dilatation. Pancreas: Normal appearing pancreas. Spleen: Normal appearing spleen. Adrenal glands: 2.0 cm indeterminate left adrenal nodule with a density of 35 Hounsfield units on image 27 of series 4. 1.5 cm indeterminate right adrenal nodule with a density of 40 Hounsfield units on image 24. Correlation with prior imaging is recommended to document stability of size. Alternatively MRI with chemical shift imaging could be obtained for definitive evaluation. Kidneys and ureters: 5.7 cm right renal cyst. Additional smaller hypoattenuating renal lesions, incompletely characterized but statistically most likely additional small cysts. Nonobstructing renal calculi with the largest measuring 1-2 mm. No hydronephrosis. No obstructing ureteral stones. Stomach and bowel: Stomach moderately distended with ingested material. 2.7 cm x 3.7 cm fluid-filled duodenal diverticulum incidentally noted, image 43 of series 4. No small bowel dilatation to suggest obstruction. Scattered colonic diverticula but no evidence of diverticulitis or colitis. Appendix: Suggestion of a normal diminutive appendix versus a mimicking small vascular structure. Correlation with surgical history recommended. No gross pericecal inflammatory change. Intraperitoneal space: No gross ascites or free air. Vasculature: Normal caliber abdominal aorta. Lymph nodes: No pathologically enlarged mesenteric, retroperitoneal, or pelvic sidewall lymph nodes. Urinary bladder: Normal appearing urinary bladder. Reproductive: Normal-appearing prostate gland and seminal vesicles. Bones/joints: No acute fracture seen among the bones of the abdomen or pelvis. Spinal degenerative change with discogenic degeneration, marginal osteophytes and facet arthrosis at multiple levels with central canal narrowing and neural foraminal narrowing at several lumbar levels. Of particular note, central canal narrowing appears moderate-severe at L3-L4. Soft tissues: Diastasis recti. Small fat containing ventral hernia at the umbilicus. Small fat containing right inguinal region hernia. IMPRESSION: 1. Prominent gallbladder distension. Layering hyperdense material in the gallbladder neck, probably noncalcified stones and/or sludge. Hazy indistinctness of the gallbladder margins on the coronal series with suggestion of trace fluid between the gallbladder and the liver. Clinical correlation is recommended to assess the possibility of acute cholecystitis. No biliary dilatation. 2. No acute bowel pathology demonstrated. 3. Small fluid containing hiatal hernia. 4. Indeterminate adrenal nodules, as above. Dictated and Authenticated by: Godwin Penn MD. Ordering:VENTURA Coburn MD
--- NOTE | 2023-03-11 02:19 | DI.VRAD_ITS ---
PROCEDURE INFORMATION: Exam: XR Chest Exam date and time: 03/11/2023 1:02 AM Age: 73 years old Clinical indication: Shortness of breath TECHNIQUE: Imaging protocol: Radiologic exam of the chest. Views: 1 view. COMPARISON: CR XR CHEST 2V PA LATERAL 11/29/2021 10:02 AM FINDINGS: Limitations: Patient positioning is lordotic. Lungs: No focal pulmonary consolidation is seen. Pleural spaces: No pleural effusion or pneumothorax is demonstrated. Heart/Mediastinum: Cardiac monitoring leads overlie the exam. The heart appears enlarged. Bones/joints: The visualized bony structures appear grossly intact, as seen. IMPRESSION: No active disease is seen in the chest. Dictated and Authenticated by: Godwin Penn MD. Ordering:VENTURA Coburn MD
[2023-03-11 02:22] LABS: Bilirubin Negative (Negative); Blood Negative (Negative); Clarity Clear (Clear); Glucose >=1000 mg/dL (Negative); Ketones Negative (Negative); Leukocyte Esterase Negative (Negative); Nitrite Negative (Negative); Specific Gravity <= 1.005 (1.005-1.025); Urobilinogen 0.2 mg/dL (Up to 0.2); pH 5.5 (5-8)
--- NOTE | 2023-03-11 02:24 | DI.VRAD_ITS ---
PROCEDURE INFORMATION: Exam: CT Chest With Contrast; Diagnostic Exam date and time: 03/11/2023 1:32 AM Age: 73 years old Clinical indication: Shortness of breath TECHNIQUE: Imaging protocol: Diagnostic computed tomography of the chest with contrast. 3D rendering (Not supervised by radiologist): MIP and/or 3D reconstructed images were created by the technologist. Contrast material: OMNIPAQUE 350; Contrast volume: 100 ml; Contrast route: INTRAVENOUS (IV); COMPARISON: CT CHEST PE CTA 08/01/2022 10:27 AM FINDINGS: Lungs: Mild streaky and dependent atelectasis. 3 mm right lower lobe pulmonary nodule, image 191 of series 3. No region of pulmonary consolidation. Pleural spaces: No pleural effusion or pneumothorax. Heart: Mildly enlarged heart. Coronary artery calcification. Small amount of fluid in the superior pericardial recesses. Lymph nodes: Scattered small mediastinal lymph nodes, nonspecific. Vasculature: No thoracic aortic aneurysm or dissection. No pulmonary embolism identified. Diaphragm: 3.6 cm fluid-filled hiatal hernia. Bones/joints: Lower ribs partially excluded from view and incompletely evaluated. Otherwise, no acute fracture seen among the bones of the chest. Anterior vertebral osteophytes at multiple levels. Soft tissues: No gross soft tissue mass or fluid collection seen in the chest wall. Notes: CT imaging through the abdomen obtained concurrently, dictated separately. IMPRESSION: 1. No active disease is seen in the chest. 2. 3.6 cm hiatal hernia. 3. Mild cardiomegaly. Dictated and Authenticated by: Godwin Penn MD. Ordering:VENTURA Coburn MD
[2023-03-11] MEDS: cefTRIAXone 1 GM/50 ML BAG IVPB (02:39)
[2023-03-11] MEDS: Mylanta Suspension 30 ML CUP PO (04:00)
[2023-03-11 04:26] LABS: Troponin I < 50 ng/L (<or=60)
[2023-03-11 04:48] LABS: Lactate 1.9 mmol/L (0.6-1.4)
[2023-03-11] MEDS: Ondansetron 4 MG/2 ML VIAL IVP (04:51)
--- NOTE | 2023-03-11 05:30 | W.PM.HP.N ---
Date of service: 03/11/23 Time of Service: 05:30 Assessment and Plan Assessment and plan (1) Acute hypotension: Start date: 03/11/23 Status: Acute Assessment and plan: This is a 73-year-old gentleman who presented with acute hypotension and bradycardia most likely secondary to vagal response to abdominal bloating and distention. He appears to have mostly an abdominal possible surgical process with his gallbladder. He is on medical therapy that did exacerbate this response and amiodarone will be held for now with metoprolol being given in split doses as tolerated. His Xarelto will be held with surgical consultation. He did receive IV fluids for resuscitation and since he will be n.p.o. he will have gentle IV hydration awaiting surgical consultation. (2) Bradycardia: Start date: 03/11/23 Status: Acute Assessment and plan: Sinus bradycardia with hypotension probably has response to vagal stimulation with abdominal process. Presently he sinus rhythm and controlled rate with metoprolol be continued but amiodarone held for now. Patient does have paroxysmal atrial fibrillation. (3) Gastric distention: Start date: 03/11/23 Status: Acute Assessment and plan: Patient has retained food and gastric distention with discomfort. This most likely secondary to gallbladder process possible acute cholecystitis. Surgical consultation with IV Rocephin to be continued and NG tube will be placed to decompress stomach. Patient continued to have nausea will be treated symptomatically. (4) Epigastric abdominal pain: Start date: 03/11/23 Status: Acute Assessment and plan: Secondary to gastric distention possible gastroparesis but this appears to be response to possible gallbladder process with acute cholecystitis possible. Surgical consultation as discussed. Also ultrasound the gallbladder has been ordered. Patient is NPO. (5) A-fib: Status: Chronic Assessment and plan: Sinus rhythm presently with patient having paroxysmal atrial fibrillation controlled on medical therapy. Hold Xarelto for now with surgical consultation possible gallbladder process prompting this admission. Cardiac monitoring. Patient is a full code. (6) Diabetes mellitus: Assessment and plan: While hospitalized the patient will be on glucometer measurements every 6 hours with sensitive sliding scale short acting insulin coverage in lieu of the patient's usual insulin coverage as an outpatient. Procedure will be continued but this is mostly for heart failure. Metformin and oral hypoglycemic will be held as well. (7) History of ITP: Status: Resolved Assessment and plan: Patient had an episode of ITP possibly associated with his cardiac meds with a Sulfone drug-induced thrombocytopenia. The patient has been taking his amiodarone and metoprolol without difficulty as platelet count is normal presently. Further vesication's as to what this reaction actually was in the past with these medications not sulfa-based to my knowledge. History of Present Illness History of Present Illness Chief Complaint: Low blood pressure with slow pulse and epigastric pain Narrative: This is 73-year-old male patient who presented to the ED ill-appearing with hypotensive bradycardia complaining of onset of epigastric abdominal pain with which he awakened in the middle of the night having nausea and vomiting. He felt very dizzy which prompted his to call the ambulance. In the ED he was very diaphoretic and rinaldi appearing as if he was having a heart attack and told the ED physician that his heart was bothering him. He did have pizza 7 PM the night prior. He had a very sharp midepigastric discomfort which prompted his onset of symptoms with nausea and vomiting and then what appeared to be a vagal response with bradycardia and hypotension despite his apparent dehydrated state by POC in the ED which logically would have presented with tachycardia and hypotension. Patient does have a gallbladder and imaging did reveal a dilated gallbladder. The common bile duct and liver function did not indicate any common duct obstruction and lipase was normal with pancreatitis being less likely. Imaging did not suggest pancreatitis. The patient was admitted to the floor with blood pressure and pulse normalized after IV hydration but he continued with abdominal bloating and pain and appeared very uncomfortable. He was not vomiting but felt nauseated. He is not having chest pain or palpitations. He does have chronic heart failure but has had no recent edema or shortness of breath and has been stable on his medical regimen. He gives a story of having thrombocytopenia secondary to some of his cardiac meds but is stable on lower dose of amiodarone and metoprolol. Troponins were negative in the ED. He was in sinus rhythm. Patient is a full code. Review of Systems Narrative: 13 point review of system positive for patient being obese, no bruising on Xarelto for anticoagulation with paroxysmal atrial fibrillation, no diarrhea or constipation and he denied hematemesis with his vomiting. Otherwise unrevealing or stable. [facility] All Active Problems (Updated 03/11/23 @ 07:26 by Gael Ordoñez) Acute hypotension (Acute) Bradycardia (Acute) Epigastric abdominal pain (Acute) Gastric distention (Acute) Nail dystrophy (Acute) Mitral regurgitation (Chronic) Cardiomyopathy (Acute) Tachycardia (Acute) A-fib (Chronic) PAC (premature atrial contraction) (Acute) Abnormal chest x-ray (Acute) Shortness of breath (Acute) Knee pain (Acute) Knee swelling (Acute) Medical History Diabetes mellitus Erectile dysfunction GERD (gastroesophageal reflux disease) Hemorrhoids Hyperlipidemia Lower urinary tract symptoms (LUTS) Nocturia Onychomycosis JEEVAN (obstructive sleep apnea) Strabismus Family History Paternal Grandfather Heart attack Diabetes Amputation leg, bilat Paternal Grandmother , in house fire No problems noted. Father , heart attack at 65 with pneumonia 85 Diabetes Heart attack Lung cancer Mother Dementia Sister Diabetes Heart attack Brother Diabetes Heart attack Maternal Grandfather , of [place] at 70 Diabetes Heart disease Heart attack Maternal Grandmother , passed at 19 giving to mother No problems noted. Social History Smoking/Tobacco Use Status: Never Smoking risk assessment performed?: Yes Alcohol Intake: never Drug use: Never Substance use type: does not use Housing: house Do you feel safe at home: Yes Do you feel safe in your relationship?: Yes Meds Allergies and Home Medications Allergies Allergy/AdvReac Type Severity Reaction Status Date / Time amiodarone Allergy Severe as Verified 03/11/23 01:06 Sulfone drug-induced ITP thrombocytopenia metoprolol Allergy Severe as Verified 03/11/23 01:06 Sulfone drug-induced ITP thrombocytopenia tamsulosin [From Flomax] Allergy Severe Unverified 03/11/23 01:06 torsemide Allergy Severe as Verified 03/11/23 01:06 Sulfone drug-induced ITP thrombocytopenia dofetilide AdvReac elongated Verified 03/11/23 01:06 EKG Home Medications Medication Instructions Recorded Confirmed Type metformin 1,000 mg tablet 1,000 mg PO BID 07/11/15 03/11/23 History Multi Vitamin W Minerals 1 tab BID 08/03/15 03/11/23 History omega-3 fatty acids-fish oil 300 1,000 mg PO BID 08/03/15 03/11/23 History mg-1,000 mg capsule potassium citrate 10 mEq (1,080 10 meq PO BID 07/12/20 03/11/23 History mg) tablet,extended release sildenafil 50 mg tablet (Viagra) 50 mg PO DAILY PRN sexual activity 09/26/20 03/11/23 Rx #10 tabs omeprazole 20 mg capsule,delayed 20 mg PO BID 12/22/20 03/11/23 History release melatonin 10 mg capsule 20 mg PO HS PRN 12/26/20 03/11/23 History simethicone 80 mg chewable tablet 80 mg PO BID-QID PRN 12/26/20 03/11/23 History (Gas Relief (simethicone)) glimepiride 4 mg tablet 4 mg PO BID 11/02/21 03/11/23 History pravastatin 20 mg tablet 20 mg PO BID 11/02/21 03/11/23 History terbinafine HCl 1 % topical cream 1 applic topical BID 11/20/21 03/11/23 History psyllium husk 3.4 gram/5.4 gram 1 tbsp PO DAILY 12/19/21 03/11/23 History oral powder (Metamucil) metoprolol succinate 100 mg 100 mg PO DAILY 07/06/22 03/11/23 History tablet,extended release 24 hr pen needle, diabetic 31 gauge x 07/06/22 01/07/23 History 1/4 (TRUEplus Pen Needle) rivaroxaban 20 mg tablet 20 mg PO DAILY 07/06/22 03/11/23 History amiodarone 200 mg tablet 100 mg PO DAILY 01/07/23 03/11/23 History dapagliflozin propanediol 5 mg 10 mg PO DAILY 01/07/23 03/11/23 History tablet (Farxiga) insulin detemir U-100 100 unit/mL 40 unit subcut QHS 01/07/23 03/11/23 History (3 mL) subcutaneous pen (Levemir FlexTouch U-100 Insulin) nystatin 100,000 unit/gram topical 1 applic topical QID #30 grams 01/30/23 03/11/23 Rx powder Bacillus coagulans-inulin 1 250 cap PO 02/27/23 History billion cell-250 mg capsule (Probiotic with Prebiotic) Exam Narrative Exam Narrative: General: Patient appears appropriate for age moderately obese especially over trunk but mesomorphic. He is in moderate distress from his abdominal bloating and discomfort. He has a flattened affect and minimal conversation. He is alert and oriented x3. HEENT: Normocephalic, eyes with pupils equal and react to light symmetrically with left eye wandering and right eye focusing on interviewer, extraocular movement appears intact. Sclera anicteric. Oropharynx with slightly dry mucosa. Neck: Supple without JVD. Back: Stooped posture without CVA tenderness. Lungs: Fair aeration clear to auscultation and percussion with no focalizing rales or rhonchi. Regular breath sounds diffusely. Heart: Distant heart sounds with regular rate and rhythm, no appreciable murmur or gallop but heart sounds are distant and obscured by patient's grunting and respiratory sounds. Abdomen: Obese contour, soft but tender to palpation of the right upper quadrant especially and also over the epigastrium with some guarding. Questionable Mercado sign. No palpable hepatosplenomegaly. Bowel sounds positive in all quadrants. Genitalia/rectal: Exam deferred. Extremity: Without clubbing, cyanosis or grossly pitting edema. Trace pitting over both ankles with no significant skin changes. Skin: Moist, warm and dry. Rough texture with actinic changes over sun exposed areas. Neuro: Cranial nerves II through XII gross intact with wandering left eye and possible amblyopia, no focalizing motor deficits and no tremor. Psych: Flattened affect with patient appears uncomfortable but normal mood. Voice monotonous tone and some slowed speech with minimal conversation. No abnormal thought processes. Remote and recent memory grossly intact. Results Imaging Imaging Studies: xam: CT Abdomen And Pelvis With Contrast Exam date and time: 03/11/2023 1:21 AM Age: 73 years old Clinical indication: Abdominal pain; Epigastric TECHNIQUE: Imaging protocol: Computed tomography of the abdomen and pelvis with contrast. Contrast material: OMNIPAQUE 350; Contrast volume: 100 ml; Contrast route: INTRAVENOUS (IV);? COMPARISON: CR ABDOMEN FLAT PLATE 04/10/2016 3:01 PM FINDINGS: Lungs: Streaky opacity at the lung bases, probably atelectasis and/or scarring. Diaphragm: 3.6 cm fluid-filled hiatal hernia. Liver: Normal appearing liver. Gallbladder and bile ducts: Gallbladder moderately distended. Layering relatively hyperdense material in the gallbladder neck, probably stones or sludge. Hazy indistinctness of the gallbladder margins on the coronal series and suggestion of fluid between the gallbladder and the liver. No biliary dilatation. Pancreas: Normal appearing pancreas. Spleen: Normal appearing spleen. Adrenal glands: 2.0 cm indeterminate left adrenal nodule with a density of 35 Hounsfield units on image 27 of series 4. 1.5 cm indeterminate right adrenal nodule with a density of 40 Hounsfield units on image 24. Correlation with prior imaging is recommended to document stability of size. Alternatively MRI with chemical shift imaging could be obtained for definitive evaluation. Kidneys and ureters: 5.7 cm right renal cyst. Additional smaller hypoattenuating renal lesions, incompletely characterized but statistically most likely additional small cysts. Nonobstructing renal calculi with the largest measuring 1-2 mm. No hydronephrosis. No obstructing ureteral stones. Stomach and bowel: Stomach moderately distended with ingested material. 2.7 cm x 3.7 cm fluid-filled duodenal diverticulum incidentally noted, image 43 of series 4. No small bowel dilatation to suggest obstruction. Scattered colonic diverticula but no evidence of diverticulitis or colitis. Appendix: Suggestion of a normal diminutive appendix versus a mimicking small vascular structure. Correlation with surgical history recommended. No gross pericecal inflammatory change. Intraperitoneal space: No gross ascites or free air. Vasculature: Normal caliber abdominal aorta. Lymph nodes: No pathologically enlarged mesenteric, retroperitoneal, or pelvic sidewall lymph nodes. Urinary bladder: Normal appearing urinary bladder. Reproductive: Normal-appearing prostate gland and seminal vesicles. Bones/joints: No acute fracture seen among the bones of the abdomen or pelvis. Spinal degenerative change with discogenic degeneration, marginal osteophytes and facet arthrosis at multiple levels with central canal narrowing and neural foraminal narrowing at several lumbar levels. Of particular note, central canal narrowing appears moderate-severe at L3-L4. Soft tissues: Diastasis recti. Small fat containing ventral hernia at the umbilicus. Small fat containing right inguinal region hernia. IMPRESSION: 1. ? Prominent gallbladder distension. Layering hyperdense material in the gallbladder neck, probably noncalcified stones and/or sludge. Hazy indistinctness of the gallbladder margins on the coronal series with suggestion of trace fluid between the gallbladder and the liver. Clinical correlation is recommended to assess the possibility of acute cholecystitis. No biliary dilatation. 2. ? No acute bowel pathology demonstrated. 3. ? Small fluid containing hiatal hernia. 4. ? Indeterminate adrenal nodules, as above. Exam: XR Chest Exam date and time: 03/11/2023 1:02 AM Age: 73 years old Clinical indication: Shortness of breath TECHNIQUE: Imaging protocol: Radiologic exam of the chest. Views: 1 view. COMPARISON: CR XR CHEST 2V PA LATERAL 11/29/2021 10:02 AM FINDINGS: Limitations: Patient positioning is lordotic. Lungs: No focal pulmonary consolidation is seen. Pleural spaces: No pleural effusion or pneumothorax is demonstrated. Heart/Mediastinum: Cardiac monitoring leads overlie the exam. The heart appears enlarged. Bones/joints: The visualized bony structures appear grossly intact, as seen. IMPRESSION: No active disease is seen in the chest. Exam: CT Chest With Contrast; Diagnostic Exam date and time: 03/11/2023 1:32 AM Age: 73 years old Clinical indication: Shortness of breath TECHNIQUE: Imaging protocol: Diagnostic computed tomography of the chest with contrast. 3D rendering (Not supervised by radiologist): MIP and/or 3D reconstructed images were created by the technologist. Contrast material: OMNIPAQUE 350; Contrast volume: 100 ml; Contrast route: INTRAVENOUS (IV);? COMPARISON: CT CHEST PE CTA 08/01/2022 10:27 AM FINDINGS: Lungs: Mild streaky and dependent atelectasis. 3 mm right lower lobe pulmonary nodule, image 191 of series 3. No region of pulmonary consolidation. Pleural spaces: No pleural effusion or pneumothorax. Heart: Mildly enlarged heart. Coronary artery calcification. Small amount of fluid in the superior pericardial recesses. Lymph nodes: Scattered small mediastinal lymph nodes, nonspecific. Vasculature: No thoracic aortic aneurysm or dissection. No pulmonary embolism identified. Diaphragm: 3.6 cm fluid-filled hiatal hernia. Bones/joints: Lower ribs partially excluded from view and incompletely evaluated. Otherwise, no acute fracture seen among the bones of the chest. Anterior vertebral osteophytes at multiple levels. Soft tissues: No gross soft tissue mass or fluid collection seen in the chest wall. Notes: CT imaging through the abdomen obtained concurrently, dictated separately. IMPRESSION: 1. ? No active disease is seen in the chest. 2. ? 3.6 cm hiatal hernia. 3. ? Mild cardiomegaly. Labs 03/11/23 00:25 03/11/23 00:25 Labs: Laboratory Results - last 24 hr 03/11/23 03/11/23 03/11/23 00:25 00:25 00:25 WBC 12.38 H RBC 4.75 Hgb 15.5 Hct 45.7 MCV 96 H MCH 32.6 MCHC 33.9 RDW 13.1 Plt Count 231 MPV 10.2 PT INR APTT VBG Lactate Sodium 145 Potassium 3.9 Chloride 108 H Carbon Dioxide 22.7 Anion Gap 14.3 H BUN 21 H Creatinine 1.3 Est GFR (CKD-EPI 2020) 58.01 Glucose 156 H Calcium 9.0 Total Bilirubin 0.6 AST 15 ALT 22 Alkaline Phosphatase 78 Troponin I < 50 NT-Pro-B Natriuret Pep 157 Total Protein 6.6 Albumin 3.7 Lipase Urine Color Urine Clarity Urine pH Ur Specific Wheeling Urine Protein Urine Ketones Urine Blood Urine Nitrite Urine Bilirubin Urine Urobilinogen Ur Leukocyte Esterase Urine Glucose 03/11/23 03/11/23 03/11/23 00:25 00:45 00:45 WBC RBC Hgb Hct MCV MCH MCHC RDW Plt Count MPV PT 11.0 INR 1.1 APTT 30.2 VBG Lactate 2.9 H* Sodium Potassium Chloride Carbon Dioxide Anion Gap BUN Creatinine Est GFR (CKD-EPI 2020) Glucose Calcium Total Bilirubin AST ALT Alkaline Phosphatase Troponin I NT-Pro-B Natriuret Pep Total Protein Albumin Lipase 26 Urine Color Urine Clarity Urine pH Ur Specific [place] Urine Protein Urine Ketones Urine Blood Urine Nitrite Urine Bilirubin Urine Urobilinogen Ur Leukocyte Esterase Urine Glucose 03/11/23 03/11/23 03/11/23 02:15 03:45 04:34 WBC RBC Hgb Hct MCV MCH MCHC RDW Plt Count MPV PT INR APTT VBG Lactate Sodium Potassium Chloride Carbon Dioxide Anion Gap BUN Creatinine Est GFR (CKD-EPI 2020) Glucose Calcium Total Bilirubin AST ALT Alkaline Phosphatase Troponin I < 50 Cancelled NT-Pro-B Natriuret Pep Total Protein Albumin Lipase Urine Color Yellow Urine Clarity Clear Urine pH 5.5 Ur Specific [place] <= 1.005 Urine Protein Negative Urine Ketones Negative Urine Blood Negative Urine Nitrite Negative Urine Bilirubin Negative Urine Urobilinogen 0.2 Ur Leukocyte Esterase Negative Urine Glucose >=1000 H 03/11/23 04:45 WBC RBC Hgb Hct MCV MCH MCHC RDW Plt Count MPV PT INR APTT VBG Lactate 1.9 H Sodium Potassium Chloride Carbon Dioxide Anion Gap BUN Creatinine Est GFR (CKD-EPI 2020) Glucose Calcium Total Bilirubin AST ALT Alkaline Phosphatase Troponin I NT-Pro-B Natriuret Pep Total Protein Albumin Lipase Urine Color Urine Clarity Urine pH Ur Specific Wheeling Urine Protein Urine Ketones Urine Blood Urine Nitrite Urine Bilirubin Urine Urobilinogen Ur Leukocyte Esterase Urine Glucose Last Vital Signs Temp 36.6 C 03/11/23 00:19 Pulse 67 03/11/23 05:00 Resp 10 L 03/11/23 05:04 BP 122/70 03/11/23 05:00 Pulse Ox 86 L 03/11/23 05:04 Time Spent Time spent with Patient: >75 minutes Time was spent: preparing to see the patient(eg.review tests), obtaining and/or reviewing separately otained hiistory, ordering medications,tests, procedures, referring, communicating with other health child care specialist, indepentently interpreting results and care coordination
[2023-03-11] MEDS: Lactated Ringers 1,000 ML 100 ML IV (07:00)
[2023-03-11] MEDS: Lidocaine 2% Jelly 6 ML SYR TP (07:15)
[2023-03-11 07:27] LABS: Lactate 2.2 mmol/L (0.6-1.4)
[2023-03-11 07:57] LABS: Anion Gap 13.4 mmol/L (3-11); BUN 18 mg/dL (7-18); CO2 22.6 mmol/L (21.0-32.0); CREATININE 0.9 mg/dL (0.70-1.30); Calcium 8.7 mg/dL (8.5-10.1); Chloride 108 mmol/L (98-107); Estimated GFR 90.18 (mL/min/1.73m2); Glucose 179 mg/dL (74-106); Potassium 3.9 mmol/L (3.5-5.1); Sodium 144 mmol/L (136-145); TSH (W/Ref FT4) 3.25 uIU/mL (0.36-3.74)
[2023-03-11] MEDS: Pravastatin 20 MG TAB PO ×2 (08:07→20:00)
[2023-03-11] MEDS: Pantoprazole 40 MG VIAL IVP (08:08)
[2023-03-11] MEDS: Omega-3 Fatty Acids 1000 MG CAP PO (08:08)
[2023-03-11] MEDS: Multivitamin w/Minerals TAB 1 TAB PO ×2 (08:08→20:00)
[2023-03-11] MEDS: Metoprolol 25 MG TAB PO ×3 (08:08→18:09)
--- NOTE | 2023-03-11 08:36 | DI.RAD_ITS ---
Exam(s) XR ABDOMEN FLAT PLATE EXAM: XR ABDOMEN FLAT PLATE CLINICAL HISTORY: NGT placement verification. TECHNIQUE: 2D digital imaging was performed. COMPARISON: CT CT ABDOMEN PELVIS W from 03/11/2023 FINDINGS: AP supine view of the abdomen: There is an NG tube place in the stomach. Stomach is not overly distended. Air is seen throughout t he nondistended colon. Small 2 millimeter calcification on the right side noted which is possibly in the upper pole the righ t kidney and may correspond to 1 of the calculi seen on recent CT scan. Contrast is filling the urin kurtis bladder from recent CT scan. IMPRESSION: As above. Please also note that recent CT scan revealed edema of the duodenal wall which can be furt her study with upper endoscopy. Small hiatal hernia was also evident on CT scan as well as distended gallbladder. See separate CT scan reports. DATA REPOSITORY: RADIATION DOSE DELIVERED:
--- NOTE | 2023-03-11 10:01 | NUR.NOTE ---
Call pharmacy @ 0800 due to 0830 medication was not available. Was informed they would bring it to the unit shortly. Will follow up. Nursing Note:
--- NOTE | 2023-03-11 10:56 | INITIAL_ITS ---
Date of service: 03/11/23 Time of Service: 10:57 Care Management Initial Assmt Initial Assessment REASON FOR HOSPITALIZATION:: Hypotension with bradycardia, dehydration; currently admitted to the hospital for further studies and hydration; n.p.o PREVIOUS FUNCTIONAL STATUS/SOCIAL/FAMILY SUPPORTS:: Linden resides in [place] with his , Kindra. He remains independent at baseline. CURRENT FUNCTIONAL STATUS:: 2L O2, up independently. ADVANCE DIRECTIVES:: On file; Kindra as agent, Diannakadi Johnson as alternate, Natali Rubio as successor alternate agent. Has patient been provided with info about the portal/API?: Yes Did the patient sign up for the portal?: Yes CODE STATUS:: Full Code INSURANCE COVERAGE / FINANCIAL ISSUES:: Medicare, BC/BS PRIMARY CARE PHYSICIAN:: Domenica Atkins POTENTIAL DISCHARGE NEEDS:: Follow up appointments. PATIENT/FAMILY EDUCATION NEEDS:: Review discharge instructions, discuss Ask Me Three. ANTICIPATED BARRIERS TO DISCHARGE:: None identified. TRANSPORTATION:: Via private vehicle with family. PLAN:: Linden will return home when ready per MD. He will follow up with his PCP and plan of care as prescribed. He will transport via private vehicle with family. PFSH All Active Problems (Updated 03/12/23 @ 21:04 by Charis Jain NP) Discharge planning issues (Acute) Acute cholecystitis with chronic cholecystitis (Acute) RUQ abdominal pain (Acute) Epigastric abdominal pain (Acute) Gastric distention (Acute) Nail dystrophy (Acute) Mitral regurgitation (Chronic) Cardiomyopathy (Acute) Tachycardia (Acute) A-fib (Chronic) PAC (premature atrial contraction) (Acute) Abnormal chest x-ray (Acute) Shortness of breath (Acute) Knee pain (Acute) Knee swelling (Acute) Medical History Diabetes mellitus Erectile dysfunction GERD (gastroesophageal reflux disease) Hemorrhoids Hyperlipidemia Lower urinary tract symptoms (LUTS) Nocturia Onychomycosis JEEVAN (obstructive sleep apnea) Strabismus Family History Paternal Grandfather Heart attack Diabetes Amputation leg, bilat Paternal Grandmother , in house fire No problems noted. Father , heart attack at 65 with pneumonia 85 Diabetes Heart attack Lung cancer Mother Dementia Sister Diabetes Heart attack Brother Diabetes Heart attack Maternal Grandfather , of [place] at 70 Diabetes Heart disease Heart attack Maternal Grandmother , passed at 19 giving to mother No problems noted. Social History Smoking/Tobacco Use Status: Never Smoking risk assessment performed?: Yes Alcohol Intake: never Drug use: Never Substance use type: does not use Housing: house Do you feel safe at home: Yes Do you feel safe in your relationship?: Yes
[2023-03-11] MEDS: Insulin Aspart 300 UNITS/3 ML PEN SC (12:00)
[2023-03-11] MEDS: Potassium Citrate 1080 MG TABCR PO ×2 (12:00→20:00)
[2023-03-11] MEDS: PIPERACILLIN/TAZO 3.375 GM in Normal Saline 50 ML IVPB ×2 (17:57→20:01)
--- NOTE | 2023-03-11 21:24 | PGE_ITS ---
Date of Service Date of service: 03/11/23 Time of Service: 21:24 Assessment and Plan Assessment and plan (1) History of ITP: Status: Resolved Assessment and plan: From IV amiodarone, not p.o. amiodarone (2) RUQ abdominal pain: Status: Acute (3) Cardiomyopathy: Status: Acute Assessment and plan: See echo from 2022 (4) A-fib: Status: Chronic (5) Diabetes mellitus: (6) GERD (gastroesophageal reflux disease): Assessment and plan: IV Protonix (7) Hyperlipidemia: Assessment and plan: Hold medications (8) JEEVAN (obstructive sleep apnea): (9) Lower urinary tract symptoms (LUTS): (10) Acute cholecystitis with chronic cholecystitis: Status: Acute Assessment and plan: risk:The patient will be scheduled for laparoscopic cholecystectomy.? The alternatives to surgery, risks, complications, and the possible need to convert to open cholecystectomy were discussed. Also bleeding, infection, pneumonia, blood clots, complications of anesthesia, damage to bowel, bladder, blood vessels, or bile ducts, liver, need for blood transfusions. Also: chronic pain, chronic diarrhea, reoccurrence of signs and symptoms, port site hernias, adhesions.? All questions were answered and the patient elected to proceed with surgery. -We will plan surgery on Saturday as that will be 48 hours since his blood thinners have been held. If his condition deteriorates tomorrow then we will proceed with surgery at that point. -He had a echo in October or December which showed acceptable parameters -Continue IV Zosyn and supportive care -Continue metoprolol and amiodarone. I discussed with the patient that he has an acute cholecystitis. We discussed what he could expect during surgery, recovery time and risks.. He has never had abdominal surgery before. He has had other surgeries and has had no problems with anesthesia. -Continue tight control of blood sugars Subjective Subjective Interval history since last seen: Pt is doing well. no headaches. No CP or SOB. no productive cough. no dysuria. no leg pain or swelling. Patient feels less distended and bloated today. He does have an NG tube in place. He has had 50 cc of output today. His pain is well controlled. He is passing gas. He denies any chest pain or shortness of breath. He does have a history of congestive heart failure. He has not had any problems with CHF in the past year. He does not did have an echo in October or December of this year. Results were reviewed in [employer]. He is on a blood thinner-it is unclear from the chart if his last dose was yesterday or today. He is on this for A-fib. He states he has had no further exacerbations in CHF since his A-fib has been under good control. This controlled with metoprolol and amiodarone. Amiodarone is listed as causing his ITP. This was in IV form. He is on amiodarone daily p.o. without platelet issues. He is currently feeling significantly better than when he came into the hospital. Labs and ultrasound reviewed. Exam Const Other: PHYSICAL EXAM GENERAL APPEARANCE: Alert, healthy appearance, oriented, x 3,? in no acute distress HYDRATION: Well hydrated HEAD, EYES, EARS, NECK, THROAT: Head is normocephalic, pupils equal, round, reactive to light and accommodation, ocular movement intact, sclera clear and no jaundice. ?Dentition intact. LUNGS: normal respiration/normal chest excursion. ?Clear to auscultation bilaterally. ?No wheeze. ?HEART: Regular rate and rhythm. no murmurs EXTREMITY: No edema or cyanosis.? no leg pain, redness, swelling.? ABDOMEN: soft and non-tender to palpation.? Normal bowel sounds. Moderately distended abdomen. Pain in the right upper quadrant. No hernias noted Objective Last Vital Signs Temp 37.7 C H 03/11/23 20:18 Pulse 61 03/11/23 20:18 Resp 18 03/11/23 20:18 BP 119/65 03/11/23 20:18 Pulse Ox 95 03/11/23 20:18 Laboratory Results - last 24 hr 03/11/23 03/11/23 03/11/23 00:25 00:25 00:25 WBC 12.38 H RBC 4.75 Hgb 15.5 Hct 45.7 MCV 96 H MCH 32.6 MCHC 33.9 RDW 13.1 Plt Count 231 MPV 10.2 PT INR APTT VBG Lactate Sodium 145 Potassium 3.9 Chloride 108 H Carbon Dioxide 22.7 Anion Gap 14.3 H BUN 21 H Creatinine 1.3 Est GFR (CKD-EPI 2020) 58.01 Glucose 156 H Calcium 9.0 Total Bilirubin 0.6 AST 15 ALT 22 Alkaline Phosphatase 78 Troponin I < 50 NT-Pro-B Natriuret Pep 157 Total Protein 6.6 Albumin 3.7 Lipase TSH Urine Color Urine Clarity Urine pH Ur Specific [place] Urine Protein Urine Ketones Urine Blood Urine Nitrite Urine Bilirubin Urine Urobilinogen Ur Leukocyte Esterase Urine Glucose 03/11/23 03/11/23 03/11/23 00:25 00:45 00:45 WBC RBC Hgb Hct MCV MCH MCHC RDW Plt Count MPV PT 11.0 INR 1.1 APTT 30.2 VBG Lactate 2.9 H* Sodium Potassium Chloride Carbon Dioxide Anion Gap BUN Creatinine Est GFR (CKD-EPI 2020) Glucose Calcium Total Bilirubin AST ALT Alkaline Phosphatase Troponin I NT-Pro-B Natriuret Pep Total Protein Albumin Lipase 26 TSH Urine Color Urine Clarity Urine pH Ur Specific [place] Urine Protein Urine Ketones Urine Blood Urine Nitrite Urine Bilirubin Urine Urobilinogen Ur Leukocyte Esterase Urine Glucose 03/11/23 03/11/23 03/11/23 02:15 03:45 04:34 WBC RBC Hgb Hct MCV MCH MCHC RDW Plt Count MPV PT INR APTT VBG Lactate Sodium Potassium Chloride Carbon Dioxide Anion Gap BUN Creatinine Est GFR (CKD-EPI 2020) Glucose Calcium Total Bilirubin AST ALT Alkaline Phosphatase Troponin I < 50 Cancelled NT-Pro-B Natriuret Pep Total Protein Albumin Lipase TSH Urine Color Yellow Urine Clarity Clear Urine pH 5.5 Ur Specific [place] <= 1.005 Urine Protein Negative Urine Ketones Negative Urine Blood Negative Urine Nitrite Negative Urine Bilirubin Negative Urine Urobilinogen 0.2 Ur Leukocyte Esterase Negative Urine Glucose >=1000 H 03/11/23 03/11/23 03/11/23 04:45 07:05 07:05 WBC RBC Hgb Hct MCV MCH MCHC RDW Plt Count MPV PT INR APTT VBG Lactate 1.9 H 2.2 H* Sodium 144 Potassium 3.9 Chloride 108 H Carbon Dioxide 22.6 Anion Gap 13.4 H BUN 18 Creatinine 0.9 Est GFR (CKD-EPI 2020) 90.18 Glucose 179 H Calcium 8.7 Total Bilirubin AST ALT Alkaline Phosphatase Troponin I NT-Pro-B Natriuret Pep Total Protein Albumin Lipase TSH 3.25 Urine Color Urine Clarity Urine pH Ur Specific [place] Urine Protein Urine Ketones Urine Blood Urine Nitrite Urine Bilirubin Urine Urobilinogen Ur Leukocyte Esterase Urine Glucose Time Spent with Patient Time Spent with Patient: <25 minutes Time was spent: preparing to see the patient(eg.review tests), obtaining and/or reviewing separately otained hiistory, ordering medications,tests, procedures, referring, communicating with other health veterinarian laboratory animal care, indepentently interpreting results, counseling the patient and care coordination
[2023-03-11 22:29] LABS: ALT 21 U/L (16-63); AST 19 U/L (15-37); Albumin 3.4 g/dL (3.4-5.0); Alkaline Phosphatase 59 U/L (46-116); Anion Gap 9.2 mmol/L (3-11); BUN 20 mg/dL (7-18); Bilirubin, Total 1.5 mg/dL (0.2-1.0); C-Reactive Protein 12.21 mg/dL (0.0-0.3); CO2 25.8 mmol/L (21.0-32.0); Calcium 8.4 mg/dL (8.5-10.1); Chloride 106 mmol/L (98-107); Estimated GFR 79.47 (mL/min/1.73m2); Glucose 126 mg/dL (74-106); Sodium 141 mmol/L (136-145); Total Protein 6.5 g/dL (6.4-8.2)
[2023-03-12] VITALS (11 sets, daily range): BP systolic 109–130; BP diastolic 64–71; PULSE 58–65; RESP 17–20; TEMP 36.6–37.6; O2SAT 91–95
[2023-03-12] MEDS: Nystatin POWDER 15 GM JAR TP ×4 (01:00→23:22)
[2023-03-12] MEDS: Metoprolol 25 MG TAB PO ×2 (01:00→05:44)
[2023-03-12] MEDS: Lactated Ringers 1,000 ML 100 ML IV ×2 (03:50→19:48)
[2023-03-12] MEDS: Pantoprazole 40 MG VIAL IVP (05:44)
[2023-03-12] MEDS: PIPERACILLIN/TAZO 3.375 GM in Normal Saline 50 ML IVPB ×3 (05:44→19:49)
[2023-03-12 06:22] LABS: HCT 43.3 % (40.0-50.0); HGB 14.3 g/dL (13.5-17.5); MCH 32.6 pg (27.0-33.0); MCV 99 fL (80-95); Platelet Count 174 10^3/uL (130-400); RBC 4.39 10^6/uL (4.36-5.78); RDW 13.6 % (11.8-14.1); RDW-SD 49.7 fL; WBC 15.64 10^3/uL (4.4-10.8)
[2023-03-12 06:45] LABS: ALT 17 U/L (16-63); AST 15 U/L (15-37); Albumin 2.9 g/dL (3.4-5.0); Alkaline Phosphatase 53 U/L (46-116); BUN 21 mg/dL (7-18); Bilirubin, Total 1.5 mg/dL (0.2-1.0); Calcium 8.1 mg/dL (8.5-10.1); Chloride 106 mmol/L (98-107); Estimated GFR 79.47 (mL/min/1.73m2); Glucose 111 mg/dL (74-106); Magnesium 1.9 mg/dL (1.8-2.4); NT-proBNP 810 pg/mL (<300); Potassium 4.2 mmol/L (3.5-5.1); Sodium 141 mmol/L (136-145); Total Protein 5.7 g/dL (6.4-8.2)
[2023-03-12] MEDS: Potassium Citrate 1080 MG TABCR PO ×2 (07:56→19:50)
[2023-03-12] MEDS: Pravastatin 20 MG TAB PO ×2 (07:56→19:50)
[2023-03-12] MEDS: Amiodarone 200 MG TAB 100 MG PO (07:56)
[2023-03-12] MEDS: Metoprolol CR 100 MG TABCR PO (07:56)
[2023-03-12] MEDS: Multivitamin w/Minerals TAB 1 TAB PO ×2 (07:56→19:50)
--- NOTE | 2023-03-12 12:40 | PDOC.CMPRO ---
Date of service: 03/12/23 Time of Service: 12:40 Care Management Progress Note Progress Note Text Progress Note Text: S/O: Linden remains inpatient, surgery on hold as Linden is on zarelto-anticipate his gallbladder will be removed tomorrow per provider. CM continues to follow. A: 73 year old male admitted to [facility] 03/11/23 for hypotension with bradycardia, dehydration P: Per provider, anticipate Linden will be brought to the OR to have his gallbladder removed tomorrow. He will monitored closely post surgically and evaluated for any additional needs prior to discharge. CM continues to follow.
--- NOTE | 2023-03-12 14:23 | CHAPLAIN ---
Linden is waiting to have his gall bladder removed tomorrow. He was sitting up in bed when I visited and was pleasant and engaged in conversation. He is in touch with family in [place] and seems to be comfortable being here. He said he's just waiting now. I explained my role and offered support.
--- NOTE | 2023-03-12 18:05 | W.PM.PROGNOT ---
Date of Service Date of service: 03/12/23 Time of Service: 12:00 Assessment and Plan Assessment and plan (1) Epigastric abdominal pain: Start date: 03/11/23 Status: Acute Assessment and plan: Pain has improved; acute cholecystitis NPO after midnight (2) Gastric distention: Start date: 03/11/23 Status: Acute Assessment and plan: Probable acute cholecystitis. Surgical consultation completed and NGT dc'd Continue IV Rocephin (3) A-fib: Status: Chronic Assessment and plan: Sinus rhythm presently with patient having paroxysmal atrial fibrillation controlled on medical therapy. Continue to Xarelto f Cardiac monitoring Patient is a full code. Last echo 12/13/22 EF 50-55% (4) Diabetes mellitus: Assessment and plan: Glucometer measurements every 6 hours Continue sensitive sliding scale short acting insulin coverage Continue to hold Metformin and oral hypoglycemic (5) History of ITP: Status: Resolved Assessment and plan: Normal plt currently (6) Bradycardia: Start date: 03/11/23 Status: Resolved Assessment and plan: History of paroxysmal atrial fibrillation Sinus rhythm and controlled rate with metoprolol HR 60's BP 120s/60s (7) Acute hypotension: Start date: 03/11/23 Status: Resolved Assessment and plan: Continue to hold amiodarone with metoprolol being given in split doses as tolerated. Continue holding Xarelto Surgical consult - plan to go to OR tomorrow, 03/13 (8) Discharge planning issues: Status: Acute Assessment and plan: Surgery planned for 03/13 Home when medically stable Discussed with Dr Raines Subjective Subjective Patient reports: no new complaints, pain is less, voiding w/o difficulty, bowel movement and afebrile; denies diarrhea, nausea or vomiting Interval history since last seen: Wilber is comfortable, awake and alert, he understands he is going to the OR tomorrow and getting his gallbladder out. He reports no pain currently. Exam Narrative Exam Narrative: Sitting in a chair in the room, conversant. Const General: cooperative, healthy appearing, comfortable and no acute distress Orientation: alert, awake and oriented x3 HENMT Head: normal to inspection, normocephalic and atraumatic Face and sinus: normal facial exam Mouth: moist mucous membranes Eyes Conjunctivae: conjunctivae normal Neck Neck: normal visual inspection, full ROM, no meningeal signs, trachea midline and supple Resp Effort & Inspection: normal respiratory effort and able to speak in complete sentences Auscultation: clear to auscultation bilaterally Cardio Rate: regular rate Rhythm: regular rhythm GI Inspection: normal to inspection Palpation: soft, not firm, no guarding, no pulsatile masses and nontender Auscultation: hypoactive bowel sounds Back/Spine/Pelvis Back: No back tenderness Skin General skin exam: no rashes or lesions noted Neuro General: patient alert, patient awake, moves all extremities and no focal motor deficits Cognition: normal cognition Speech: speech normal Gait: normal gait Motor: muscle tone normal throughout Sensory Exam: no sensory deficits noted Extrem General: normal to inspection, full ROM, capillary refill normal, no pedal edema and no calf tenderness Psych Appearance: grossly normal Mental Status: mental status grossly normal Objective Last Vital Signs Temp 37.1 C 03/12/23 15:00 Pulse 62 03/12/23 15:00 Resp 17 03/12/23 15:00 BP 113/64 03/12/23 15:00 Pulse Ox 91 L 03/12/23 15:00 Laboratory Results - last 24 hr 03/11/23 03/12/23 03/12/23 22:02 06:15 06:15 WBC 15.64 H RBC 4.39 Hgb 14.3 Hct 43.3 MCV 99 H MCH 32.6 MCHC 33.0 RDW 13.6 Plt Count 174 MPV 10.0 Sodium 141 141 Potassium 4.0 4.2 Chloride 106 106 Carbon Dioxide 25.8 26.0 Anion Gap 9.2 9.0 BUN 20 H 21 H Creatinine 1.0 1.0 Est GFR (CKD-EPI 2020) 79.47 79.47 Glucose 126 H 111 H Calcium 8.4 L 8.1 L Magnesium 1.9 Total Bilirubin 1.5 H 1.5 H AST 19 15 ALT 21 17 Alkaline Phosphatase 59 53 C-Reactive Protein 12.21 H NT-Pro-B Natriuret Pep 810 H Total Protein 6.5 5.7 L Albumin 3.4 2.9 L Time Spent with Patient Time Spent with Patient: 35-49 minutes Time was spent: ordering medications,tests, procedures, referring, communicating with other health career placement services counselor, indepentently interpreting results, counseling the patient and care coordination
--- NOTE | 2023-03-12 22:47 | PGE_ITS ---
Date of Service Date of service: 03/12/23 Time of Service: 08:30 Assessment and Plan Assessment and plan (1) Acute cholecystitis with chronic cholecystitis: Status: Acute Assessment and plan: The alternatives to surgery, risks, complications, and the possible need to convert to open cholecystectomy were discussed. Also bleeding, infection, pneumonia, blood clots, complications of anesthesia, damage to bowel, bladder, blood vessels, or bile ducts, liver, need for blood transfusions. Also: chronic pain, chronic diarrhea, reoccurrence of signs and symptoms, port site hernias, adhesions.? All questions were answered and the patient elected to proceed with surgery -Lovenox is held/Xarelto as well -see echo in [employer] from 2022 -CT and ultrasound chart as well as recent labs -Patient is on Zosyn -Surgery on Saturday (2) History of ITP: Status: Resolved Assessment and plan: - From IV amiodarone (3) Cardiomyopathy: Status: Acute (4) A-fib: Status: Chronic (5) PAC (premature atrial contraction): Status: Acute (6) Diabetes mellitus: (7) GERD (gastroesophageal reflux disease): (8) Hemorrhoids: (9) Hyperlipidemia: (10) Lower urinary tract symptoms (LUTS): (11) JEEVAN (obstructive sleep apnea): Subjective Subjective Interval history since last seen: no headaches. No CP or SOB. no productive cough. no dysuria. no leg pain or swelling. No N/V. Exam GI Other: mild distention. hypoactive BS. no hernias +RUQ pain Objective Last Vital Signs Temp 37.2 C 03/12/23 19:10 Pulse 60 03/12/23 19:10 Resp 18 03/12/23 19:10 BP 123/68 03/12/23 19:10 Pulse Ox 92 03/12/23 19:10 Laboratory Results - last 24 hr 03/12/23 03/12/23 06:15 06:15 WBC 15.64 H RBC 4.39 Hgb 14.3 Hct 43.3 MCV 99 H MCH 32.6 MCHC 33.0 RDW 13.6 Plt Count 174 MPV 10.0 Sodium 141 Potassium 4.2 Chloride 106 Carbon Dioxide 26.0 Anion Gap 9.0 BUN 21 H Creatinine 1.0 Est GFR (CKD-EPI 2020) 79.47 Glucose 111 H Calcium 8.1 L Magnesium 1.9 Total Bilirubin 1.5 H AST 15 ALT 17 Alkaline Phosphatase 53 NT-Pro-B Natriuret Pep 810 H Total Protein 5.7 L Albumin 2.9 L Time Spent with Patient Time Spent with Patient: <25 minutes Time was spent: preparing to see the patient(eg.review tests), obtaining and/or reviewing separately otained hiistory, ordering medications,tests, procedures, referring, communicating with other health medicare sales executive, indepentently interpreting results, counseling the patient and care coordination
[2023-03-13] VITALS (18 sets, daily range): BP systolic 126–158; BP diastolic 60–83; PULSE 58–75; RESP 17–26; TEMP 35.9–36.9; O2SAT 92–96; BMI 38.0
[2023-03-13] MEDS: Lactated Ringers 1,000 ML 100 ML IV ×2 (04:51→19:58)
[2023-03-13] MEDS: Pantoprazole 40 MG VIAL IVP (04:59)
[2023-03-13] MEDS: Nystatin POWDER 15 GM JAR TP ×2 (04:59→18:06)
[2023-03-13] MEDS: PIPERACILLIN/TAZO 3.375 GM in Normal Saline 50 ML IVPB ×2 (04:59→19:51)
[2023-03-13 07:12] LABS: Abs Immature Grans 0.07 10^3/uL (0.0-0.06); Absolute Eosinophil Count 0.11 10^3/uL (0.0-0.7); Absolute Lymphocyte Count 1.48 10^3/uL (1.2-3.4); Basophils % 0.6; Eosinophils % 0.9; HCT 44.9 % (40.0-50.0); Immature Grans % 0.6; Lymphocytes % 11.8; MCH 32.5 pg (27.0-33.0); MCHC 33.4 % (32.0-36.0); MCV 97 fL (80-95); MPV 10.7 fL (8.0-11.0); Monocytes % 9.6; Neutrophils % 76.5; Platelet Count 182 10^3/uL (130-400); RBC 4.61 10^6/uL (4.36-5.78); RDW 13.3 % (11.8-14.1); RDW-SD 48.3 fL; WBC 12.53 10^3/uL (4.4-10.8)
[2023-03-13 07:15] LABS: Absolute Basophil Count 0.08 10^3/uL (0.0-0.2); Absolute Neutrophil Count 9.59 10^3/uL (1.2-6.7)
[2023-03-13 07:25] LABS: Anion Gap 10.5 mmol/L (3-11); BUN 18 mg/dL (7-18); CO2 24.5 mmol/L (21.0-32.0); CREATININE 0.9 mg/dL (0.70-1.30); Calcium 8.5 mg/dL (8.5-10.1); Chloride 104 mmol/L (98-107); Estimated GFR 90.18 (mL/min/1.73m2); Glucose 113 mg/dL (74-106); Potassium 3.9 mmol/L (3.5-5.1); Sodium 139 mmol/L (136-145)
[2023-03-13] MEDS: Multivitamin w/Minerals TAB 1 TAB PO ×2 (08:04→19:52)
[2023-03-13] MEDS: Pravastatin 20 MG TAB PO ×2 (08:04→19:52)
[2023-03-13] MEDS: Metoprolol CR 100 MG TABCR PO (08:04)
[2023-03-13] MEDS: Potassium Citrate 1080 MG TABCR PO ×2 (08:04→19:53)
[2023-03-13] MEDS: Amiodarone 200 MG TAB 100 MG PO (08:04)
--- NOTE | 2023-03-13 10:15 | W.ANESPRE ---
General Info Date of Service Date Performed: 03/13/23 Height: 5 ft 8 in Weight: 113.469 kg Body Mass Index (BMI): 38.0 Surgical Procedure: Operation Date: 03/13/23 11:25 Proposed Procedure Side Surgeon p Cholecystectomy Laparoscopic Possible Open Cristi Ordonez MD Meds Allergies and Home Medications Allergies Allergy/AdvReac Type Severity Reaction Status Date / Time amiodarone Allergy Severe as Verified 03/11/23 01:06 Sulfone drug-induced ITP thrombocytopenia metoprolol Allergy Severe as Verified 03/11/23 01:06 Sulfone drug-induced ITP thrombocytopenia tamsulosin [From Flomax] Allergy Severe Unverified 03/11/23 01:06 torsemide Allergy Severe as Verified 03/11/23 01:06 Sulfone drug-induced ITP thrombocytopenia dofetilide AdvReac elongated Verified 03/11/23 01:06 EKG Home Medication Medication Instructions Recorded metformin 1,000 mg tablet 1,000 mg PO BID 07/11/15 Multi Vitamin W Minerals 1 tab BID 08/03/15 omega-3 fatty acids-fish oil 300 1,000 mg PO BID 08/03/15 mg-1,000 mg capsule potassium citrate 10 mEq (1,080 10 meq PO BID 07/12/20 mg) tablet,extended release sildenafil 50 mg tablet (Viagra) 50 mg PO DAILY PRN sexual activity 09/26/20 #10 tabs omeprazole 20 mg capsule,delayed 20 mg PO BID 12/22/20 release melatonin 10 mg capsule 20 mg PO HS PRN 12/26/20 simethicone 80 mg chewable tablet 80 mg PO BID-QID PRN 12/26/20 (Gas Relief (simethicone)) glimepiride 4 mg tablet 4 mg PO BID 11/02/21 pravastatin 20 mg tablet 20 mg PO BID 11/02/21 terbinafine HCl 1 % topical cream 1 applic topical BID 11/20/21 psyllium husk 3.4 gram/5.4 gram 1 tbsp PO DAILY 12/19/21 oral powder (Metamucil) metoprolol succinate 100 mg 100 mg PO DAILY 07/06/22 tablet,extended release 24 hr pen needle, diabetic 31 gauge x 07/06/22 1/ (TRUEplus Pen Needle) rivaroxaban 20 mg tablet 20 mg PO DAILY 07/06/22 amiodarone 200 mg tablet 100 mg PO DAILY 01/07/23 dapagliflozin propanediol 5 mg 10 mg PO DAILY 01/07/23 tablet (Farxiga) insulin detemir U-100 100 unit/mL 40 unit subcut QHS 01/07/23 (3 mL) subcutaneous pen (Levemir FlexTouch U-100 Insulin) nystatin 100,000 unit/gram topical 1 applic topical QID #30 grams 01/30/23 powder Bacillus coagulans-inulin 1 250 cap PO 02/27/23 billion cell-250 mg capsule (Probiotic with Prebiotic) Current Visit Medications: Current Medications Generic Name Dose Route Start Last Admin Trade Name Freq PRN Reason Stop Dose Admin Acetaminophen 325 - 650 mg 03/11/23 05:33 Acetaminophen 325 Mg Tab PO Q4H PRN PRN Amiodarone HCl 100 mg 03/12/23 08:30 03/13/23 08:04 Amiodarone 200 Mg Tab PO 100 mg DAILY ROB Administration Dextrose 0 gm 03/11/23 05:47 Glucose Oral Gel 15 Gm/37.5 Gm Tube PO DIRECTED PRN Dextrose/Water 0 gm 03/11/23 05:47 Dextrose 50%-Water 25 Gm/50 Ml Syr IVP DIRECTED PRN Dimethicone/Zinc Oxide 0 gm 03/11/23 05:33 Tyler Protect Cream 142 Gm Tube TP PRN PRN Hydromorphone HCl 0.5 mg 03/11/23 07:05 03/11/23 08:07 Hydromorphone 2 Mg/Ml Syr IVP 0.5 ml Q2H PRN PRN Administration Ringer's Solution 1,000 mls @ 100 mls/hr 03/11/23 05:45 03/13/23 04:51 IV 100 mls/hr INFUSION ROB Administration Sodium Chloride 500 mls @ 0 mls/hr 03/11/23 07:35 Saline 500ml Bag IV PRN PRN As Directed Piperacillin Sod/Tazobactam 50 mls @ 12.5 mls/hr 03/11/23 22:00 03/13/23 04:59 Sod 3.375 gm/ Sodium Chloride IVPB 12.5 mls/hr Q8H ROB Administration IV Miscellaneous Supplies 1 each 03/11/23 07:45 Iv Access IV DIRECTED [facility] Insulin Aspart 0 - 9 units 03/11/23 06:00 03/13/23 05:00 Insulin Aspart 300 Units/3 Ml Pen SC Not Given Q6H [facility] Protocol Iron/Minerals/Multivitamins 1 tab 03/11/23 08:30 03/13/23 08:04 Multivitamin W/Minerals Tab PO 1 tab BID ROB Administration Melatonin 18 mg 03/11/23 14:59 Melatonin 3 Mg Tab PO HS PRN PRN Metoprolol Succinate 100 mg 03/12/23 08:30 03/13/23 08:04 Metoprolol Cr 100 Mg Tabcr PO 100 mg DAILY ROB Administration Morphine Sulfate 2 mg 03/12/23 23:01 Morphine 2 Mg/Ml Syr IVP Q1H PRN PRN Nystatin 0 gm 03/11/23 06:00 03/13/23 04:59 Nystatin Powder 15 Gm Jar TP 1 applic Q6H ROB Administration Ondansetron HCl 4 mg 03/11/23 07:03 Ondansetron 4 Mg/2 Ml Vial IVP Q4H PRN PRN Pantoprazole Sodium 40 mg 03/11/23 06:00 03/13/23 04:59 Pantoprazole 40 Mg Vial IVP 40 mg Q24H ROB Administration Pt's Own 1 each 03/11/23 08:30 03/13/23 08:05 Dapagliflozin [ PO Not Given Farxiga] 10 Mg DAILY ROB Tablet Polyethylene Glycol 17 gm 03/11/23 05:33 Polyethylene Glycol 3350 17 Gm Packet PO DAILY PRN PRN Constipation Potassium Citrate 1,080 mg 03/11/23 08:30 03/13/23 08:04 Potassium Citrate 1080 Mg Tabcr PO 1,080 mg BID ROB Administration Pravastatin Sodium 20 mg 03/11/23 08:30 03/13/23 08:04 Pravastatin 20 Mg Tab PO 20 mg BID ROB Administration Sodium Chloride 0 ml 03/11/23 07:35 Normal Saline Flush 10 Ml Syr IVP PRN PRN PFSH Active Problems Active Problems: Problem Status Onset Code Discharge planning issues Z02.9 Acute cholecystitis with chronic cholecystitis K81.2 RUQ abdominal pain R10.11 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 Acute hypotension I95.9 Bradycardia R00.1 Epigastric abdominal pain R10.13 Gastric distention K31.89 Nail dystrophy L60.3 Mitral regurgitation I34.0 Cardiomyopathy I42.9 Tachycardia R00.0 A-fib I48.91 PAC (premature atrial contraction) I49.1 Abnormal chest x-ray R93.89 Shortness of breath R06.02 Knee pain M25.569 Knee swelling M25.469 Medical History Medical History Diabetes mellitus Erectile dysfunction GERD (gastroesophageal reflux disease) Hemorrhoids Hyperlipidemia Lower urinary tract symptoms (LUTS) Nocturia Onychomycosis JEEVAN (obstructive sleep apnea) Strabismus Tobacco Smoking/Tobacco Use Status: Never Alcohol Alcohol Intake: never Substance Use Substance use: Never Substance use type: does not use Vital Signs and Lab Results Vital Signs Most Recent Vital Signs in EMR: Most Recent Vital Signs Temp Pulse Resp BP Pulse Ox 36.1 C L 59 L 18 131/77 92 03/13/23 07:16 03/13/23 07:16 03/13/23 03:28 03/13/23 07:16 03/13/23 07:16 Point of Care Results Point of Care Results: Finger Stick Blood Glucose 103 03/13/23 05:00 Lab Results 03/13/23 06:20 03/13/23 06:20 Blood Type / Crossmatch: No Data to Display Complete Blood Count: White Blood Count 12.53 10^3/uL (4.4-10.8) H 03/13/23 06:20 Red Blood Count 4.61 10^6/uL (4.36-5.78) 03/13/23 06:20 Hemoglobin 15.0 g/dL (13.5-17.5) 03/13/23 06:20 Hematocrit 44.9 % (40.0-50.0) 03/13/23 06:20 Platelet Count 182 10^3/uL (130-400) 03/13/23 06:20 Venous Blood Lactate 2.2 mmol/L (0.6-1.4) H* 03/11/23 07:05 Complete Metabolic Panel: Sodium 139 mmol/L (136-145) 03/13/23 06:20 Potassium 3.9 mmol/L (3.5-5.1) 03/13/23 06:20 Chloride 104 mmol/L (98-107) 03/13/23 06:20 Carbon Dioxide 24.5 mmol/L (21.0-32.0) 03/13/23 06:20 BUN 18 mg/dL (7-18) 03/13/23 06:20 Creatinine 0.9 mg/dL (0.70-1.30) 03/13/23 06:20 Est GFR (CKD-EPI 2020) 90.18 (mL/min/1.73m2) 03/13/23 06:20 Magnesium 2.0 mg/dL (1.8-2.4) 03/13/23 06:20 Calcium 8.5 mg/dL (8.5-10.1) 03/13/23 06:20 Albumin 2.9 g/dL (3.4-5.0) L 03/12/23 06:15 Glucose 113 mg/dL (74-106) H 03/13/23 06:20 C-Reactive Protein 12.21 mg/dL (0.0-0.3) H 03/11/23 22:02 Liver Function Panel: Alanine Aminotransferase (ALT/SGPT) 17 U/L (16-63) 03/12/23 06:15 Aspartate Amino Transf (AST/SGOT) 15 U/L (15-37) 03/12/23 06:15 Coagulation Panel: INR International Normalized Ratio 1.1 (0.9-1.1) 03/11/23 00:25 Prothrombin Time 11.0 sec (9.3-11.0) 03/11/23 00:25 Activated Partial Thromboplast Time 30.2 sec (21.5-31.9) 03/11/23 00:25 Cardiac Panel: Troponin I < 50 ng/L (<or=60) 03/11/23 NT-Pro-B Natriuret Pep 810 pg/mL (<300) H 03/12/23 Arterial Blood Gas: No Data to Display Venous Blood Gas: No Data to Display Pancreas Panel: Lipase 26 U/L (16-77) 03/11/23 00:45 Thyroid Panel: Thyroid Stimulating Hormone (TSH) 3.25 uIU/mL (0.36-3.74) 03/11/23 07:05 Infectious Disease: No Data to Display Blood Cultures: No Data to Display Toxicology Panel: No Data to Display Imaging and Studies Imaging and Studies Study information below may be from another EMR and interpreted by another provider. Please see original notes in EMR for more complete details. EKG Summary: EKG PATIENT NAME: Rosalio Ovalles #: [id number] ORDERING PROVIDER: Almas Maciel M.D. PRIMARY CARE PROVIDER:DOMENICA WILKINSON NP DATE/TIME OF SERVICE: 03/11/233 : 1950PERFORMING LOCATION: [place] APPROVED REPORT Exam: Resting ECG Reason for Exam: chest pain Patient Location: E HR:42 bpm ECG Measurements Heart Rate 42 AXIS ID 201 P 23 QRSd 102 QRS -16 QT 528 T29 QTc 442 Conclusion Sinus bradycardia...rate< 60 <Electronically signed by ALMAS MACIEL MD in OV> E-Sign Date: 03/11/23 E-Sign Time: 010 ADDENDUM APPROVED REPORT Exam: Resting ECG Reason for Exam: chest pain Patient Location: E HR:42 bpm ECG Measurements Heart Rate 42 AXIS ID 201 P 23 QRSd 102 QRS -16 QT 528 T29 QTc 442 Conclusion Sinus bradycardia...rate< 60 I have reviewed and I agree with the emergency room physician's ECG interpretation. Electronically signed by: <Electronically signed by Natali Iqbal M.D. in OV> 03/11/23 0809 Cosigned by: Echocardiogram Summary: Patient Name: Rosalio Ovalles #: [id number]: DI Ordering Provider: Bert Arredondo #: [id number]: REG CLI Primary Care Provider: Heck,TinaDate of Exam: 12/13/22Sex: M Admission Date: 12/13/22 : 1950 Age: 72 APPROVED REPORT EXAM: Comprehensive 2D, Doppler, and color-flow Echocardiogram Patient Location: Out-Patient Indications: persistent afib Other Information Study Quality: Adequate Conclusion Normal left ventricular chamber size and wall thickness. Estimated ejection fraction is 50 to 55%. There are no segmental wall motion abnormalities Normal right ventricular size and systolic function Left atrium is moderately dilated. Right atrial size is normal Aortic valve is trileaflet with mild regurgitation Structurally normal mitral valve with moderate regurgitation Normal tricuspid valve with mild regurgitation. Estimated right ventricular systolic pressure is 27 mmHg Mildly dilated ascending aorta measuring 3.48 cm Wall motion Left Ventricle The left ventricle is normal size. Left ventricular systolic function is mildly decreased. There is normal left ventricular wall thickness. There are no segmental wall motion abnormalities There is no ventricular septal defect visualized. LVEF is 50-55%. Right Ventricle The right ventricle is normal size. Right ventricular systolic function is grossly normal. The RVSP is 26.9 mmHg. Atria Left atrium is moderately dilated. Right atrium is normal The interatrial septum is intact with no evidence for an atrial septal defect. Aortic Valve Aortic valve is trileaflet. The aortic valve is normal in structure. There is no aortic valvular stenosis. Mild aortic regurgitation. Mitral Valve The mitral valve is normal in structure. No evidence of mitral valve stenosis. Moderate mitral regurgitation. Tricuspid Valve The tricuspid valve is normal in structure. There is no tricuspid valve stenosis. Mild tricuspid regurgitation. Pulmonic Valve The pulmonary valve is normal in structure. There is no pulmonic valvular stenosis. There is no pulmonic valvular regurgitation. Great Vessels The aortic root is normal in size. The ascending aorta is mildly dilated. Aortic arch is normal in caliber. IVC is normal in size and collapses >50% with inspiration. Pericardium There is no pericardial effusion. 2D Dimensions IVSD d PLAX 0.78 cm M: 0.6-1.2LV Vol A2C d MOD 227.7 mL LVPW d PLAX 0.79 cm M: 0.6 - 1.2LV Vol A4C d MOD 155.2 mL LVID d PLAX 5.83 cm M: 4.2 - 5.8LA vol/ BSA A4C s A-L50.4 mL/m2 LVDs 3.50 cm M: 2.5 - 4.0LA Area A4C s MOD 30.17 cm2 Ao Root d 3.41 cm M: 3.1 - 3.7LV EF A4C MOD 50.9 % Ao Asc Diam d 3.48 cm M: 2.6 - 3.4LV EF A2C MOD 51.5 % LV EF Teichholz 69.5 %LV EF Biplane MOD 50.9 % LVEF (Mendoza's)50.87 % M: 52 - 72SV95.28 mL LV Dohglc431.77 mL M: 62 - 150SV Index42.86 mL/m2 LV Volume Index60.88 mL/m2 M: 34 - 74 LV Vol Biplane MOD 187.3 mL FS39.70 % M-Mode TAPSE 1.85 cm (M/F) >1.7 LV Diastology MV E' medial0.086 (>0.07 m/s)E/A Ratio 1.3 LV E/e MED6.65 (<14)MV E Vmax 0.57 (0.4-1.3 m/s) MV E' lateral0.143 (>0.1 m/s)MV A Vmax 0.45 (0.4-1.3 m/s) LV E/e LAT4.00 (<14)MV E/A Ratio 1.27 MV E/E' medial 6.65 MV E/E' lateral4.01 Aortic Valve LVOT Area4.67 cm2AoV Area Vmax3.11 cm2 LVOT Vmax 0.73 m/sAoV Area/ BSA (Vmax)1.40 cm2/m2 LVOT Mean Bubba.0.48 m/sAVA Mean Bubba.2.57 cm2 LVOT Peak Grad 2.2 mmHgAVA Mean Bubba. Index1.15 cm2/m2 LVOT Mean Grad 1.0 mmHg LVOT VTI0.148 m LVOT Diam s 2.40 cm AoV Vmax1.10 m/s Velocity Ratio 0.66 AoV Mean Bubba.0.87 m/s AoV Peak Grad4.8 mmHg LVOT SV 68.97 mL AoV Mean Grad3.2 mmHg AoV VTI0.176 m AoV Area VTI3.93 cm2 AoV Area/ BSA (VTI)1.77 cm/m2 Mitral Valve MV DT 324 (160-240 msec) MV PHT94 msec MV Area PHT 2.34 cm2 MV VTI 0.246 m MV Area VTI 2.80 (4.0-6.0 cm2) Pulmonary Valve PV Vmax 0.69 (0.5-1.5 m/s)RVOT Peak Gr.0.45 mmHg PV Peak Grad 1.9 mmHgRVOT Mean Gr.0.25 mmHg PV Mean Grad 1.3 mmHgRVOT VTI0.047 m PV VTI 0.113 mRVOT Vmax 0.34 m/s Tricuspid Valve TR Peak Grad 23.9 mmHgTR Vmax 2.44 m/s RA Pressure 3.00 mmHg RVSP (TR) 26.9 mmHg Ordered By: Curtis Arredondo CC: Dictated By: Natali Iqbal M.D. 12/13/22 1614 <Electronically signed by Natali Iqbal M.D. in OV> 12/14/22 0809 Transcribed By: Natali Iqbal MD Pulmonary Function Summary: Pulmonary Function Test PATIENT NAME: Rosalio Ovalles #: [id number] ADMITTING PROVIDER: Malorie Naranjo M.D. PRIMARY CARE PROVIDER:DOMENICA WILKINSON NP DATE OF ADMIT: 02/02/22 : 1950 Date of service: 02/02/22 Time of Service: 10:30 Pulmonary Function Test Result Requesting Provider Domenica Wilkinson Indications: SOB Note: SPIROMETRY: There is no airflow limitation at baseline. METHACHOLINE CHALLENGE: There was no significant decrease in FEV1 with administration of methacholine. LUNG VOLUMES: Lung volumes are within normal limits. DLCO: The diffusing capacity is normal. AIRWAY RESISTANCE: The airway resistance is normal. INTERPRETATION: Normal baseline PFT's with a negative methacholine challenge test. Clinical Correlation therefore is recommended. Anesthesia Assessment and Plan Anesthesia History Personal History: No History of Anesthesia Complications Family History: No Family History of Anesthesia Complications Exercise Tolerance Exercise Tolerance: Metabolic Equivalents>4 Pertinent Negatives Pertinent Negatives: No Symptoms of GERD and No History of CVA/TIA Cardiac & Pulmonary Exam Cardiac Exam: Normal S1/S2 Heart Sounds Pulmonary Exam: Clear Bilateral Breath Sounds Implantable Cardiac Device Does patient have a Pacemaker or an ICD?: No Airway Exam Known Difficult Airway: No Mallampati Class: 2 Mouth Opening: Normal (> 3cm) Thyromental Distance: Greater than 3 cm Neck Range of Motion: Full ROM Neck Circumference: Normal Teeth Condition: Removable Dentures/Plates Upper, Removable Dentures/Plates Lower and Edentulous ASA Classification ASA Score: ASA 3 Emergency Case?: No NPO Status NPO Status: NPO Clears >2 hours, Solids >8 hours Anesthesia Plan Resuscitation Status: Full Code Anesthesia Technique: General Anesthesia Airway Planned: Endotracheal Tube Monitors Used: Standard Monitors Preoperative Comments:: Preoperative notes: 73 yo male for laparoscopic cholecystectomy possibly open. Patient to [facility] last year for CHF exacerbation, [facility] for chest pain a month following (ruled to not be cardiac). Chest pain 04/11 on saturday, r/o cardiac.
[2023-03-13] MEDS: Lactated Ringers 1,000 ML 30 ML IV (10:52)
--- NOTE | 2023-03-13 11:05 | W.ANESPOSTOP ---
Postoperative Evaluation Date, Time and Location Date Performed: 03/13/23 Time Performed: 11:05 Patient Location: PACU Vital Signs Most Recent Imported Vital Signs: Most Recent Vital Signs Temp Pulse Resp BP Pulse Ox 36.1 C L 59 L 18 131/77 92 03/13/23 07:16 03/13/23 07:16 03/13/23 03:28 03/13/23 07:16 03/13/23 07:16 Pain Score Most Recent Pain Score: Most Recent Pain Score Pain Level [Abdomen] 2 03/12/23 08:00 Pain Level 0 03/13/23 07:16 Assessment Mental Status: Awake (Alert & Oriented to Patient Baseline) Airway and Respiratory Function: Patent airway with normal (patient baseline) respiratory exam Cardiovascular Function: Hemodynamically Stable Hydration Status: Adequately Hydrated Nausea & Vomiting: No Nausea or Vomiting Pain: Pain is tolerable per patient Peripheral Nerve Block: Regional nerve block not resolved at time of post operative discharge
[2023-03-13] MEDS: Bupivacaine 0.25% Pres-Free 30 ML VIAL (11:23)
--- NOTE | 2023-03-13 12:18 | W.ANESPOSTOP ---
Postoperative Evaluation Date, Time and Location Date Performed: 03/13/23 Time Performed: 14:43 Patient Location: PACU Vital Signs Most Recent Imported Vital Signs: Most Recent Vital Signs Temp Pulse Resp BP Pulse Ox 36.1 C L 59 L 18 131/77 92 03/13/23 07:16 03/13/23 07:16 03/13/23 03:28 03/13/23 07:16 03/13/23 07:16 Most Recent Vital Signs Temp Pulse Resp BP Pulse Ox 36.1 C L 59 L 18 131/77 92 03/13/23 07:16 03/13/23 07:16 03/13/23 03:28 03/13/23 07:16 03/13/23 07:16 Pain Score Most Recent Pain Score: Most Recent Pain Score Pain Level [Abdomen] 2 03/12/23 08:00 Pain Level 0 03/13/23 07:16 Assessment Mental Status: Awake (Alert & Oriented to Patient Baseline) Airway and Respiratory Function: Abnormal Respiratory exam (See explanation) (Pt cont. to require pulmonary toilet (cough and deep breath)) Cardiovascular Function: Hemodynamically Stable Hydration Status: Adequately Hydrated Nausea & Vomiting: No Nausea or Vomiting Pain: Pt. Denies Any Pain Peripheral Nerve Block: Patient did not receive a nerve block
--- NOTE | 2023-03-13 13:16 | GB_PTH ---
PATIENT: Wilber Ovalles LOC: U#:[id number] AGE/SX: 73/M [facility]: Manisha Rosales : 1950 BED: A DIS: 03/15/2023 SPEC #: [id number] RECD: 03/13/23 16:58 STATUS: RYAN REQ #: [id number] KARLA: 03/13/23 13:[address]: Gael Ordoñez DEPT: Surgical Specimen RECD BY: Yuki Kemp ENTERED: 03/13/23 16:58 SP TYPE: GB OTHR DR: Domenica Atkins Laura M Tissues: 1 - GALLBLADDER Procedures: GROSS AND MICRO LEVEL 3 Comments: [id number]
--- NOTE | 2023-03-13 13:21 | RESPIRATORY ---
Pt has hx of JEEVAN. Pt stated that he has had 2 sleep studies done, the last being 6mo ago. The first study he had a CPAP ordered which was set up by [facility]; pt had issues with machine/senior engineering technician and gave up and sent back. The next study he did also qualified him for CPAP but he was told that with AFIB he would not be able to sleep on his side and wear CPAP at night (he was told CPAP would not work this way) and he refused to have another home machine.
--- NOTE | 2023-03-13 13:57 | W.PM.OP ---
Date of service: 03/13/23 Time of Service: 13:57 Operative Note Operative Note DATE OF PROCEDURE: 03/13/23 PRE-OP DIAGNOSIS: Acute cholecystitis POST-OP DIAGNOSIS: same PROCEDURE: Laparoscopic converted to open cholecystectomy SURGEON: Cristi Ordonez [employer] PROFESSOR: Nichol Barrera ANESTHESIA TYPE: Local By Surgeon and General LMA/ETT Refer to Anesthesia Record ESTIMATED BLOOD LOSS: 150 PATHOLOGY: other (Gallbladder) COMPLICATIONS: Other (Operative bleeding from a posterior branch of the cystic artery) Patient was transported to: PACU Patient's condition: stable Indications: Linden is a 73-year-old male came to the hospital with nausea and vomiting. He underwent a CAT scan and ultrasound confirmed the diagnosis of acute cholecystitis. As an outpatient he is treated rivaroxaban for atrial fibrillation. Therefore, operative intervention was delayed for 48 hours to ensure metabolism of the rivaroxaban. We talked about the risks and benefits of the operation, Procedure Description: After satisfactory induction of general anesthesia, I prepped and draped the abdomen in usual fashion. Next, I began with a periumbilical incision. I dissected down to the fascia and elevated it with Dylon clamps. I incised it sharply. Next, I passed a 12 mm operating port in the umbilical site. I secured it to the fascia with 0 Vicryl stitches. I then insufflated the peritoneal cavity. Next I inserted a [] scope and examined the underlying viscera. There was no evidence of injury created upon entry. I then placed the patient in some reverse Trendelenburg and left side down positioning. Then, with the assistance of the laparoscope, I used local anesthetic to anesthetize the midepigastric and 2 right upper quadrant port sites. Under the vision of the laparoscope, I passed 3 more 5 mm ports. I then grasped the gallbladder fundus and elevated cephalad. It was quite edematous, and required decompression for appropriate grasping and manipulation. Once the gallbladder was satisfactorily retracted towards the head, I began my dissection of the infundibulum in a lateral to medial fashion. There was extensive thick inflammatory changes all around the gallbladder infundibulum. Tedious dissection was used to mobilize down and around the infundibulum towards the cystic duct. Because of the degree of inflammation, and in an effort to optimize mobilization and visualization, I felt that mobilizing the dome off of the gallbladder fossa was the safest trajectory. Therefore, the gallbladder was brought back down to its normal position, and I the thick adhesions of the gallbladder wall from the gallbladder fossa with Bovie electrocautery. Once this dissection was brought all the way down onto the neck, I tried to separate the cystic duct and artery. As I dissected around the posterior portion of the duct, I encountered bleeding from the posterior branch of the cystic artery. I did not feel that I had a safe for you to clip the artery proper, therefore, I felt the safest thing to do at this portion of the operation was open. Therefore, I packed the gallbladder fossa in the area of the cystic neck and triangle of Catalino with a Ray-Daja gauze. I removed the ports, and made a right subcostal incision. I the deep tissues with electrocautery, open to the fascia of the muscle, and entered the peritoneum under direct vision. With this complete, I inserted an Kan wound retractor, and gently retracted the gallbladder down towards the feet. With the neck of the gallbladder fully retracted down, I clamped across it in total with a right angle clamp. I sharply divided with Metzenbaum scissors and passed the gallbladder off the field. The cystic duct was oversewn with 2-0 Vicryl sutures. This allowed better visualization of the small bleeding from the more proximal portion of the cystic artery. I was easily able to control the bleeding with a hemostat, and used a 2-0 Vicryl suture across this tissue to ensure hemostasis. Surgical site was then copiously irrigated. It was hemostatic. All the packs were removed, and counts were correct. Next, the posterior fascia was closed with running 0 PDS stitches. Anterior fascia was closed in similar fashion. Wound was irrigated again, and the subcutaneous space was approximated with interrupted Vicryl's. The area was infiltrated with liposomal bupivacaine, and the skin was closed with surgical stapler. The umbilical fascia was closed with 0 Vicryl stitches, and the skin here was also closed with a surgical stapler, and the one 5 mm port site that was not incorporated into the subcostal incisions was also closed. Bandages were applied, and the patient was transferred to the recovery unit.
--- NOTE | 2023-03-13 13:58 | PDOC.CMPRO ---
Date of service: 03/13/23 Time of Service: 13:58 Care Management Progress Note Progress Note Text Progress Note Text: S/O: Linden remains inpatient, brought to the OR today for gallbladder removal. CM continues to follow. A: 73 year old male admitted to [facility] 03/11/23 for hypotension with bradycardia, dehydration P: Per provider, Linden will be brought to the OR to have his gallbladder removed today.. He will monitored closely post surgically and evaluated for any additional needs prior to discharge. CM continues to follow.
[2023-03-13] MEDS: Bupivacaine LIPOSOME/PF 133 MG/10 ML VIAL IJ (14:02)
[2023-03-13] MEDS: Bupivacaine 0.5% Pres-Free 30 ML VIAL (14:02)
[2023-03-13] MEDS: Lactated Ringers 1,000 ML 300 ML IV (14:04)
--- NOTE | 2023-03-13 15:58 | W.PM.PROGNOT ---
Date of Service Date of service: 03/13/23 Time of Service: 13:00 Assessment and Plan Assessment and plan (1) Acute cholecystitis with chronic cholecystitis: Status: Acute Assessment and plan: to OR today for cholecystectomy (2) A-fib: Status: Chronic Assessment and plan: Sinus rhythm presently with patient having paroxysmal atrial fibrillation controlled on medical therapy. xarelto was on hold Cardiac monitoring Patient is a full code. Last echo 12/13/22 EF 50-55% (3) Diabetes mellitus: Assessment and plan: Glucometer measurements ac/hs Continue sensitive sliding scale short acting insulin coverage Continue to hold Metformin and oral hypoglycemic (4) History of ITP: Status: Chronic Assessment and plan: Normal plt currently (5) Bradycardia: Status: Resolved Assessment and plan: History of paroxysmal atrial fibrillation Sinus rhythm and controlled rate with metoprolol HR 60's BP 120s/60s (6) Acute hypotension: Status: Resolved Assessment and plan: routine monitoring (7) Discharge planning issues: Status: Acute Assessment and plan: Home when medically stable Discussed with Dr Raines Subjective Subjective Patient reports: no new complaints Interval history since last seen: patient in OR during rounds. Exam Narrative Exam Narrative: patient in OR during rounds. Objective Last Vital Signs Temp 36.5 C 03/13/23 15:45 Pulse 60 03/13/23 15:45 Resp 24 03/13/23 15:45 BP 144/76 H 03/13/23 15:45 Pulse Ox 94 03/13/23 15:45 Laboratory Results - last 24 hr 03/13/23 03/13/23 03/13/23 06:20 06:20 13:13 WBC 12.53 H RBC 4.61 Hgb 15.0 Hct 44.9 MCV 97 H MCH 32.5 MCHC 33.4 RDW 13.3 Plt Count 182 MPV 10.7 Immature Gran % 0.6 Neutrophils % 76.5 Lymphocytes % 11.8 Monocytes % 9.6 Eosinophils % 0.9 Basophils % 0.6 Nucleated RBC % 0.0 Absolute Neutrophils 9.59 H Absolute Lymphocytes 1.48 Absolute Monocytes 1.20 H Absolute Eosinophils 0.11 Absolute Basophils 0.08 Sodium 139 Potassium 3.9 Chloride 104 Carbon Dioxide 24.5 Anion Gap 10.5 BUN 18 Creatinine 0.9 Est GFR (CKD-EPI 2020) 90.18 Glucose 113 H Calcium 8.5 Magnesium 2.0 Patient ABO/Rh O Positive Antibody Screen NEGATIVE Time Spent with Patient Time Spent with Patient: <25 minutes Time was spent: other
--- NOTE | 2023-03-13 16:55 | PHA.REVIEW2 ---
Pharmacy Admission Review Admission Clinical Review Admission Pharmacy Review: (Updated 03/13/23 @ 16:04 by Yamila Smith NP) Discharge planning issues (Acute) Acute cholecystitis with chronic cholecystitis (Acute) RUQ abdominal pain (Acute) Epigastric abdominal pain (Acute) Gastric distention (Acute) Cardiomyopathy (Acute) PAC (premature atrial contraction) (Acute) amiodarone Allergy (Severe, Verified 03/11/23 01:06) as Sulfone drug-induced ITP thrombocytopenia metoprolol Allergy (Severe, Verified 03/11/23 01:06) as Sulfone drug-induced ITP thrombocytopenia tamsulosin [From Flomax] Allergy (Severe, Unverified 03/11/23 01:06) torsemide Allergy (Severe, Verified 03/11/23 01:06) as Sulfone drug-induced ITP thrombocytopenia dofetilide Adverse Reaction (Verified 03/11/23 01:06) elongated EKG Resuscitation Status Full Code Height 5 ft 8 in Weight 113.469 kg Comments Comments/Follow Ups: Watch VS, BG, labs, for culture results and for med changes (IV to PO, adjustments in DM meds, home meds/rivaroxaban). Pharmacy Admission Review Renal Dosing Renal Dosing: BUN 18 mg/dL (7-18) 03/13/23 06:20 Creatinine 0.9 mg/dL (0.70-1.30) 03/13/23 06:20 Medications needing adjustments: Reviewed (Crcl ~80.4 mL/min current meds okay) Anticoagulation Anticoagulation: Hgb 15.0 g/dL (13.5-17.5) 03/13/23 06:20 Hct 44.9 % (40.0-50.0) 03/13/23 06:20 Plt Count 182 10^3/uL (130-400) 03/13/23 06:20 INR 1.1 (0.9-1.1) 03/11/23 00:25 Creatinine 0.9 mg/dL (0.70-1.30) 03/13/23 06:20 DVT Prophylaxis: Reviewed (SCDs ordered as pt was due to got to the OR today) Therapeutic Anticoagulation: Reviewed (watch for resumption of rivaroxaban postop) Opiate Usage Evaluate Pain Scale/Pains Meds: Reviewed Scheduled Bowel Reg ordered if on Opiates?: No (has PRN meds ordered) Relevant Labs Relevant Labs: Sodium 139 mmol/L (136-145) 03/13/23 06:20 Potassium 3.9 mmol/L (3.5-5.1) 03/13/23 06:20 Chloride 104 mmol/L (98-107) 03/13/23 06:20 Magnesium 2.0 mg/dL (1.8-2.4) 03/13/23 06:20 C-Reactive Protein 12.21 mg/dL (0.0-0.3) H 03/11/23 22:02 Electrolytes, C-Reactive P, ESR: Reviewed DM Control DM Control: Reviewed Insulin Dosing, Diabetic Medication: has sliding scale aspart ordered Q6H as pt was NPO prior to surgery, watch for adjustment in the timing of the aspart order and the addition of long acting insulin postop/when pt's diet resumed/tolerating diet. Dapagliflozin ordered as pt's own med but pt has not been able to have it brought in yet Cardiac Review Cardiac Review: Troponin I Cancelled 03/11/23 04:34 NT-Pro-B Natriuret Pep 810 pg/mL (<300) H 03/12/23 06:15 BP, HR, EF%: Reviewed (BP normal to high so far this admission) QTc Review QTc: Reviewed (QTc 442 on admission) IV to PO Switch IV Medications: Reviewed Home Meds Home Med List reviewed: Reviewed Relevent Home Meds Not ordered & why?: probiotic, glimepiride, insulin detemir, metformin, omega-3, omeprazole (has pantoprazole ordered), rivaroxaban, sildenafil (PRN), simethicone (PRN), terbinafine Current Meds Current Medication Order Review: Reviewed Pharmacy Antibiotic Review Pharmacy Antibiotic Activity: C/S review and Reviewed, no change Comments: BC no growth at 48 hours. Zosyn continues (day 3 starts this evening) Comments Comments/Follow Ups: Watch VS, BG, labs, for culture results and for med changes (IV to PO, adjustments in DM meds, home meds/rivaroxaban).
[2023-03-13] MEDS: Insulin Aspart 300 UNITS/3 ML PEN SC (18:06)
[2023-03-13] MEDS: HYDROmorphone 2 MG/ML SYR 0.5 MG IVP (23:59)
[2023-03-14] VITALS (8 sets, daily range): BP systolic 127–152; BP diastolic 65–79; PULSE 51–65; RESP 18–22; TEMP 36.1–36.8; O2SAT 92–97
[2023-03-14] MEDS: HYDROmorphone 2 MG/ML SYR 0.5 MG IVP (05:48)
[2023-03-14] MEDS: PIPERACILLIN/TAZO 3.375 GM in Normal Saline 50 ML IVPB ×3 (05:49→21:15)
[2023-03-14] MEDS: Pantoprazole 40 MG VIAL IVP (05:50)
[2023-03-14] MEDS: Nystatin POWDER 15 GM JAR TP ×5 (05:50→23:45)
[2023-03-14] MEDS: Insulin Aspart 300 UNITS/3 ML PEN SC ×5 (05:54→21:23)
[2023-03-14 07:19] LABS: HCT 43.3 % (40.0-50.0); HGB 14.6 g/dL (13.5-17.5); MCH 32.6 pg (27.0-33.0); MCHC 33.7 % (32.0-36.0); MCV 97 fL (80-95); MPV 10.7 fL (8.0-11.0); Platelet Count 202 10^3/uL (130-400); RBC 4.48 10^6/uL (4.36-5.78); RDW 13.1 % (11.8-14.1); RDW-SD 46.8 fL; WBC 14.65 10^3/uL (4.4-10.8)
[2023-03-14] MEDS: Pravastatin 20 MG TAB PO (07:29)
[2023-03-14] MEDS: Multivitamin w/Minerals TAB 1 TAB PO ×2 (07:30→19:38)
[2023-03-14] MEDS: Amiodarone 200 MG TAB 100 MG PO (07:30)
[2023-03-14 07:36] LABS: ALT 24 U/L (16-63); AST 27 U/L (15-37); Albumin 2.9 g/dL (3.4-5.0); Alkaline Phosphatase 63 U/L (46-116); Bilirubin, Direct 0.2 mg/dL (0.0-0.2); Bilirubin, Total 0.9 mg/dL (0.2-1.0); Total Protein 6.4 g/dL (6.4-8.2)
[2023-03-14] MEDS: Potassium Citrate 1080 MG TABCR PO ×2 (08:47→19:38)
--- NOTE | 2023-03-14 09:58 | PGE_ITS ---
Date of Service Date of service: 03/14/23 Time of Service: 09:58 Assessment and Plan Assessment and plan (1) Acute cholecystitis with chronic cholecystitis: Status: Acute Assessment and plan: Postop day #1 status post open Choley for gangrenous gallbladder Patient is currently doing well and pain is well controlled. -see pain plan in [facility] -PCOS on dressing -No FUAD Antibiotics: Zosyn -IV push metoprolol for heart rate and rhythm control. -Resume anticoagulation in 7 to 10 days time. -MiraLAX /walk, and pulmonary toilet for today's plan Labs reviewed (2) History of ITP: Status: Chronic (3) Mitral regurgitation: Status: Chronic (4) Cardiomyopathy: Status: Acute (5) A-fib: Status: Chronic (6) PAC (premature atrial contraction): Status: Acute (7) Diabetes mellitus: Status: Chronic (8) GERD (gastroesophageal reflux disease): (9) Hyperlipidemia: (10) Lower urinary tract symptoms (LUTS): (11) JEEVAN (obstructive sleep apnea): Subjective Subjective Interval history since last seen: Pt is doing well. no headaches. No CP or SOB. no productive cough. no dysuria. no leg pain or swelling. Pt had a regular breakafast adn tolerated well. He says he is not passing gas. He has not been up walking. He is still on O2. Patient states he has been urinating without a problem. Exam Const Other: PHYSICAL EXAM GENERAL APPEARANCE: Alert, healthy appearance, oriented, x 3,? in no acute distress HYDRATION: Well hydrated HEAD, EYES, EARS, NECK, THROAT: Head is normocephalic, pupils equal, round, reactive to light and accommodation, ocular movement intact, sclera clear and no jaundice. ?Dentition intact. No sore throat.? No jaw pain. No thrush LUNGS: normal respiration/normal chest excursion. ?Clear to auscultation bilaterally. ?No wheeze. ?HEART: Regular rate and rhythm. no murmurs. Patient is in normal sinus rhythm EXTREMITY: No edema or cyanosis.? no leg pain, redness, swelling.? ABDOMEN: soft and non-tender to palpation.? Normal bowel sounds.? He has a bobby's dressing in place with minimal strikethrough Objective Last Vital Signs Temp 36.1 C L 07/13/23 07:35 Pulse 57 L 03/14/23 07:35 Resp 18 03/14/23 07:35 BP 127/71 03/14/23 07:35 Pulse Ox 93 03/14/23 07:35 Laboratory Results - last 24 hr 03/13/23 03/14/23 03/14/23 13:13 06:10 06:10 WBC 14.65 H RBC 4.48 Hgb 14.6 Hct 43.3 MCV 97 H MCH 32.6 MCHC 33.7 RDW 13.1 Plt Count 202 MPV 10.7 Total Bilirubin 0.9 Conjugated Bilirubin 0.2 AST 27 ALT 24 Alkaline Phosphatase 63 Total Protein 6.4 Albumin 2.9 L Patient ABO/Rh O Positive Antibody Screen NEGATIVE Time Spent with Patient Time Spent with Patient: <25 minutes Time was spent: preparing to see the patient(eg.review tests), obtaining and/or reviewing separately otained hiistory, ordering medications,tests, procedures, referring, communicating with other health home care coordinator, indepentently interpreting results, counseling the patient and care coordination
--- NOTE | 2023-03-14 10:53 | PGE_ITS ---
Date of Service Date of service: 03/14/23 Time of Service: 10:53 Assessment and Plan Assessment and plan (1) Acute cholecystitis with chronic cholecystitis: Status: Acute Assessment and plan: pod #1 s/p cholestectomy routine post operative care per surgery (2) History of ITP: Status: Chronic Assessment and plan: stable, normal platelet count (3) Diabetes mellitus: Status: Chronic Assessment and plan: blood sugars 180-220 continue diabetic diet, sliding scale coverage ac/hs oral agents and basal insulin remains on hold for now. resume when able/needed. (4) Discharge planning issues: Status: Acute Assessment and plan: will discharge to home when stable. do not anticipate home health or inpatient rehab. case will be signed off to general surgery for further post operative management and disposition. discussed with DR Segura Subjective Subjective Patient reports: feels better, pain is less, tolerating liquids well, tolerating a regular diet, voiding w/o difficulty, no bowel movement and afebrile; denies shortness of breath Exam Narrative Exam Narrative: patient out of bed sitting in chair skin pink warm dry and well perfused head atraumatic awake alert and oriented, no focal deficits neck supple with no JVD cardiovascular RRR resp even and unlabored abd round, soft ext without edema Objective Last Vital Signs Temp 36.1 C L 03/14/23 07:35 Pulse 57 L 03/14/23 07:35 Resp 18 03/14/23 07:35 BP 127/71 03/14/23 07:35 Pulse Ox 93 03/14/23 07:35 Laboratory Results - last 24 hr 03/13/23 03/14/23 03/14/23 13:13 06:10 06:10 WBC 14.65 H RBC 4.48 Hgb 14.6 Hct 43.3 MCV 97 H MCH 32.6 MCHC 33.7 RDW 13.1 Plt Count 202 MPV 10.7 Total Bilirubin 0.9 Conjugated Bilirubin 0.2 AST 27 ALT 24 Alkaline Phosphatase 63 Total Protein 6.4 Albumin 2.9 L Patient ABO/Rh O Positive Antibody Screen NEGATIVE Time Spent with Patient Time Spent with Patient: 25-34 minutes Time was spent: preparing to see the patient(eg.review tests), obtaining and/or reviewing separately otained hiistory, referring, communicating with other health healthcare receptionist, indepentently interpreting results, counseling the patient and care coordination
[2023-03-14] MEDS: Polyethylene Glycol 3350 17 GM PACKET PO (11:33)
[2023-03-14] MEDS: Normal Saline Flush 10 ML SYR IVP (13:49)
--- NOTE | 2023-03-14 17:09 | PDOC.CMPRO ---
Date of service: 03/14/23 Time of Service: 17:11 Care Management Progress Note Progress Note Text Progress Note Text: S/O: Linden remains inpatient, he continues to be monitored closely post surgically; reports decreased pain, tolerating fluids and regular diet and up independently. Hospitalist signed off-surgeon following. CM continues to follow. A: 73 year old male admitted to [facility] 03/11/23 for hypotension with bradycardia, dehydration P: Linden will return home when ready per MD. He will follow up with his PCP, surgery and plan of care as prescribed. He will transport via private vehicle with family.
[2023-03-14] MEDS: Pravastatin 20 MG TAB 40 MG PO (21:15)
[2023-03-15] VITALS: PULSE 57
[2023-03-15 02:40] VITALS: BP 139/75; PULSE 69; RESP 18; TEMP 36; O2SAT 95
[2023-03-15] MEDS: Nystatin POWDER 15 GM JAR TP ×2 (05:14→11:43)
[2023-03-15] MEDS: PIPERACILLIN/TAZO 3.375 GM in Normal Saline 50 ML IVPB (05:22)
[2023-03-15 06:47] LABS: Abs Immature Grans 0.08 10^3/uL (0.0-0.06); Absolute Basophil Count 0.03 10^3/uL (0.0-0.2); Absolute Eosinophil Count 0.06 10^3/uL (0.0-0.7); Absolute Monocyte Count 1.43 10^3/uL (0.1-0.8); Absolute Neutrophil Count 10.75 10^3/uL (1.2-6.7); Basophils % 0.2; Eosinophils % 0.4; HCT 41.7 % (40.0-50.0); HGB 14.1 g/dL (13.5-17.5); Immature Grans % 0.6; Lymphocytes % 12.7; MCH 32.6 pg (27.0-33.0); MCHC 33.8 % (32.0-36.0); MCV 97 fL (80-95); MPV 10.3 fL (8.0-11.0); Monocytes % 10.1; Platelet Count 229 10^3/uL (130-400); RBC 4.32 10^6/uL (4.36-5.78); RDW 13.2 % (11.8-14.1); RDW-SD 47.2 fL; WBC 14.15 10^3/uL (4.4-10.8)
[2023-03-15 07:00] VITALS: PULSE 57
[2023-03-15 07:35] VITALS: BP 154/84; PULSE 51; RESP 18; TEMP 36.7; O2SAT 94
[2023-03-15] MEDS: Pantoprazole 40 MG TABCR PO (08:08)
[2023-03-15] MEDS: Polyethylene Glycol 3350 17 GM PACKET PO (08:10)
[2023-03-15] MEDS: Amiodarone 200 MG TAB 100 MG PO (08:10)
[2023-03-15] MEDS: Potassium Citrate 1080 MG TABCR PO (08:11)
[2023-03-15] MEDS: Multivitamin w/Minerals TAB 1 TAB PO (08:11)
[2023-03-15] MEDS: Insulin Aspart 300 UNITS/3 ML PEN SC ×2 (08:19→11:44)
--- NOTE | 2023-03-15 10:44 | W.PM.DS.N ---
Date of service: 03/15/23 Time of Service: 10:45 DS: Diagnosis Discharge Diagnosis (1) Acute cholecystitis with chronic cholecystitis: Status: Acute (2) History of ITP: Status: Chronic (3) Mitral regurgitation: Status: Chronic (4) Cardiomyopathy: Status: Acute (5) A-fib: Status: Chronic (6) PAC (premature atrial contraction): Status: Acute (7) Diabetes mellitus: Status: Chronic (8) GERD (gastroesophageal reflux disease): (9) Hyperlipidemia: (10) Lower urinary tract symptoms (LUTS): (11) JEEVAN (obstructive sleep apnea): Discharge Plan Disposition Patient Disposition: Home Condition: Good Discharge Details Reason For Visit: Hypotension with Bradycardia, Dehydration Admit Date/Time: 03/11/23 05:15 Admit Provider: Manisha Rosales Attending Provider: Manisha Rosales Primary Care Provider: Domenica Atkins [facility] Course Hospital Course: Linden is 73 years old. He came to the emergency department with abdominal pain and dehydration. Work-up revealed acute cholecystitis. He was on therapeutic anticoagulation for atrial fibrillation which was held. Broad-spectrum antibiotics were initiated, and after holding his rivaroxaban for approximately 48 hours, he was brought to the operating room and underwent cholecystectomy. Surgery was complicated by some mild bleeding which required an open approach. After surgery, he was tolerating a regular diet without any nausea or vomiting. He had a mild amount of incisional pain. LFTs were within normal limits, and he was discharged home with outpatient follow-up Home Meds and New Rx's Prescriptions: New tramadol 50 mg tablet 50 mg PO Q8H PRNQty: 12 0RF Rx Instructions: 1 tablet by mouth up to every 8 hours if needed for severe pain. This medication can be quite strong and sedating. This medication can be addictive. Please do not drive while using this medication. Continued sildenafil [Viagra] 50 mg tablet 50 mg PO DAILY PRN (Reason: sexual activity) Qty: 10 0RF Hold Instructions: Home Medication placed on hold at Doctor's office Rx Instructions: administer 30 minutes to 4 hours before activity Metamucil 3.4 gram/5.4 gram powder 1 tbsp PO DAILY Rx Instructions: mix into at least 8 oz of water or juice before administering amiodarone 200 mg tablet 100 mg PO DAILY Farxiga 5 mg tablet 10 mg PO DAILY nystatin 100,000 unit/gram powder 1 applic topical QID Qty: 30 0RF Rx Instructions: apply nystatin powder to bilateral groin area every 6 hours x 7-10 days melatonin 10 mg capsule 20 mg PO HS PRN simethicone [Gas Relief (simethicone)] 80 mg tablet,chewable 80 mg PO BID-QID PRN glimepiride 4 mg tablet 4 mg PO BID Levemir FlexTouch U100 Insulin 100 unit/mL (3 mL) insulin pen 40 unit subcut QHS (DME) pen needle, diabetic [TRUEplus Pen Needle] 31 gauge x 1/4 needle See Rx Instructions .Route Rx Instructions: As directed metoprolol succinate 100 mg tablet extended release 24 hr 100 mg PO DAILY rivaroxaban 20 mg tablet 20 mg PO DAILY Rx Instructions: must administer with evening meal metformin 1,000 MG tablet 1,000 mg PO BID omeprazole 20 mg capsule,delayed release(DR/EC) 20 mg PO BID pravastatin 20 mg tablet 20 mg PO BID Probiotic with Prebiotic 1 billion-250 cell-mg capsule 250 cap PO omega-3 fatty acids-fish oil 1 EACH capsule 1,000 mg PO BID Multi Vitamin W Minerals 1 tab BID potassium citrate 10 mEq (1,080 mg) tablet extended release 10 meq PO BID terbinafine HCl 1 % Cream 1 applic TOPICAL BID Discharge Instructions Instructions: Open Cholecystectomy (GEN) Additional Instructions: Linden, as you probably recall, you were admitted with acute inflammation of your gallbladder, and required an operation to remove it. We were not able to finish it with the cameras through your bellybutton, and you required a larger incision. The formal name of the surgery is an open cholecystectomy. You have been doing quite well after the operation, and I think you will do just fine at home. We have taken the liberty of scheduling an appointment with you in our office on March 19 at 10:30 AM in order to remove the bandage on the underside of your right ribs. In the meantime, please feel free to shower with that bandage in place. It will protect the skin underneath. If you notice that the flashing light changes colors from green to any other color, please call the surgeon on-call and let them know. I have attached some basic instructions below for these first few days after surgery. You should be up and moving around a little bit in your house. The major restriction regards heavy lifting. Please do not lift anything more than 10 pounds. You should start taking all of your regular medications on Saturday morning. This includes the rivaroxaban. We look forward to seeing you in the office next week, and if you have any questions at all, please feel free to call at any point. 1. Resume all of your medications. 2. Heating pads and ice packs can be applied over the area of your incisions to help with comfort. 3. Okay to use tylenol and ibuprofen over the counter as needed. Use tramadol as needed for severe pain. 4. Leave bandage in place for 24 hours, then remove. 5. Shower with warm soapy water. Pat dry. Use a bandaid if needed to protect your clothing. 6. No soaking or tub baths until I see you in the office. 7. No heavy lifting until I see you in the office. 8. Call the office (or go directly to the emergency room after hours) if you notice any of the following: Develop chills (warm to touch), or if you have a thermometer and your temperature is above 101 Difficulty breathing or difficultly swallowing Persistent vomiting Any bleeding ? exceeding one tablespoon 6. Call your physician if the site where your intravenous was started becomes red, swollen, painful, and warm to touch. Stand Alone Forms: Nursing Discharge Form Activity:: No heavy lifting Equipment/Supplies:: No Equipment Needed Diet:: As Tolerated DS: Summary Time Spent with Patient providing and/or coordinating discharge services: Greater than 30 minutes Status at Discharge Functional status at discharge: independent ambulation Overall status at discharge: patient is progressing back to baseline Mental Status: mental status grossly normal Speech and Movement: speech and movement normal Mood: congruent mood Affect: normal affect Exam Const General: cooperative, healthy appearing and comfortable Orientation: awake and oriented x3 Eyes General: appearance normal, both eyes and all related structures Conjunctivae: conjunctivae normal Sclera: sclerae normal Resp Effort & Inspection: normal respiratory effort and able to speak in complete sentences Cardio Jugular venous pressure: no JVD Rate: regular rate GI Inspection: non-distended Palpation: soft and no guarding Auscultation: normal bowel sounds Other: Riley dressing is holding fine. Skin General skin exam: normal turgor Neuro General: patient alert, patient awake and patient oriented x3 Cognition: normal cognition Extrem Right lower extremity: no edema Left lower extremity: no edema Psych Mental Status: mental status grossly normal Speech and Movement: speech and movement normal Mood: congruent mood Affect: normal affect DS: Data Vitals/I&O Vitals and I&O: Vital Signs Temperature 98.1 F 03/15/23 07:35 Temperature Source Tympanic 03/15/23 07:35 Pulse 51 L 03/15/23 07:35 Pulse Rhythm Regular 03/15/23 08:30 Pulse 57 L 03/11/23 06:02 Respiratory Rate 18 03/15/23 07:35 Respiratory Effort Normal, Non-Labored 03/15/23 08:30 Respiratory Depth Normal 03/15/23 08:30 Respiratory Pattern Normal 03/15/23 08:30 Blood Pressure 154/84 H 03/15/23 07:35 Blood Pressure Mean 79 03/11/23 06:01 Pulse Oximetry 94 03/15/23 07:35 Respiratory End-tidal CO2 26 03/13/23 15:45 Oxygen Delivery Method Room Air 03/15/23 07:35 Oxygen Flow Rate 0 03/15/23 07:35 Pain Level 0 03/15/23 07:35 Comment BP sierra over radio 03/15/23 07:35 Intake & Output 03/14/23 03/14/23 03/15/23 11:59 23:59 11:59 Intake Total 2300 / 2600 300 / 2600 460 / 460 Output Total 1300 / 2325 1025 / 2325 900 / 900 Balance 1000 / 275 -725 / 275 -440 / -440 Weight 249 lb 12.54 oz 250 lb 0.067 oz Intake: IV 2100 / 2150 50 / 2150 100 / 100 Oral 200 / 450 250 / 450 360 / 360 Output: Urine 1300 / 2325 1025 / 2325 900 / 900 Other: Urine Color Straw Yellow Yellow Urine Appearance Clear Cloudy Clear Urine Odor Normal Normal Strong Voiding Methods Urinal Urinal Urinal Data Completed and Pending Labs on day of discharge: Labs from last 24 hours 03/15/23 06:32 WBC 14.15 H RBC 4.32 L Hgb 14.1 Hct 41.7 MCV 97 H MCH 32.6 MCHC 33.8 RDW 13.2 Plt Count 229 MPV 10.3 Immature Gran % 0.6 Neutrophils % 76.0 Lymphocytes % 12.7 Monocytes % 10.1 Eosinophils % 0.4 Basophils % 0.2 Nucleated RBC % 0.0 Absolute Neutrophils 10.75 H Absolute Lymphocytes 1.80 Absolute Monocytes 1.43 H Absolute Eosinophils 0.06 Absolute Basophils 0.03 Preliminary micro results at discharge 03/11/23 00:45 Blood Culture - Preliminary Blood NO GROWTH 96 HOURS 03/11/23 00:45 Blood Culture - Preliminary Blood NO GROWTH 96 HOURS PFSH All Active Problems Diabetes mellitus (Chronic) Discharge planning issues (Acute) Acute cholecystitis with chronic cholecystitis (Acute) RUQ abdominal pain (Acute) History of ITP (Chronic) Epigastric abdominal pain (Acute) Gastric distention (Acute) Nail dystrophy (Acute) Mitral regurgitation (Chronic) Cardiomyopathy (Acute) Tachycardia (Acute) A-fib (Chronic) PAC (premature atrial contraction) (Acute) Abnormal chest x-ray (Acute) Shortness of breath (Acute) Knee pain (Acute) Knee swelling (Acute) Medical History Erectile dysfunction GERD (gastroesophageal reflux disease) Hemorrhoids Hyperlipidemia Lower urinary tract symptoms (LUTS) Nocturia Onychomycosis JEEVAN (obstructive sleep apnea) Strabismus Surgical History History of cholecystectomy (~03/2023) Family History Paternal Grandfather Heart attack Diabetes Amputation leg, bilat Paternal Grandmother , in house fire No problems noted. Father , heart attack at 65 with pneumonia 85 Diabetes Heart attack Lung cancer Mother Dementia Sister Diabetes Heart attack Brother Diabetes Heart attack Maternal Grandfather , of [place] at 70 Diabetes Heart disease Heart attack Maternal Grandmother , passed at 19 giving to mother No problems noted. Social History Smoking/Tobacco Use Status: Never Smoking risk assessment performed?: Yes Alcohol Intake: never Drug use: Never Substance use type: does not use Housing: house Do you feel safe at home: Yes Do you feel safe in your relationship?: Yes Time Spent with Patient Time Spent with Patient: 45-69 minutes Time was spent: preparing to see the patient(eg.review tests), counseling the patient and care coordination
--- NOTE | 2023-03-15 11:07 | W.PM.PROGNOT ---
Date of Service Date of service: 03/15/23 Time of Service: 11:07 Assessment and Plan Assessment and plan (1) Acute cholecystitis with chronic cholecystitis: Status: Acute Assessment and plan: Which is doing well after open cholecystectomy. His pain is well controlled, and his LFTs yesterday were reassuring. I think he is okay to discharge home today. We will provide instructions and early follow-up in the office next week. Subjective Subjective Interval history since last seen: Linden looks great today. He sitting up in the chair and tolerated breakfast without any difficulty. He says his pain is controlled. Exam GI Other: Abdomen soft and nondistended. Umbilical incision is clean and there is no signs of infection. Right upper quadrant incision is well bandaged without issue. Objective Last Vital Signs Temp 98.1 F 03/15/23 07:35 Pulse 51 L 03/15/23 07:35 Resp 18 03/15/23 07:35 BP 154/84 H 03/15/23 07:35 Pulse Ox 94 03/15/23 07:35 Laboratory Results - last 24 hr 03/15/23 06:32 WBC 14.15 H RBC 4.32 L Hgb 14.1 Hct 41.7 MCV 97 H MCH 32.6 MCHC 33.8 RDW 13.2 Plt Count 229 MPV 10.3 Immature Gran % 0.6 Neutrophils % 76.0 Lymphocytes % 12.7 Monocytes % 10.1 Eosinophils % 0.4 Basophils % 0.2 Nucleated RBC % 0.0 Absolute Neutrophils 10.75 H Absolute Lymphocytes 1.80 Absolute Monocytes 1.43 H Absolute Eosinophils 0.06 Absolute Basophils 0.03 Time Spent with Patient Time Spent with Patient: <25 minutes Time was spent: preparing to see the patient(eg.review tests) and counseling the patient
[2023-03-15 11:27] VITALS: BP 137/71; PULSE 59; RESP 18; TEMP 36.8; O2SAT 94
[2023-03-15 12:43] VITALS: PULSE 74
--- NOTE | 2023-03-15 15:42 | PDOC.CMDIS ---
Date of service: 03/15/23 Time of Service: 15:42 LACE Index Scoring Tool Questions: Length of Stay (in days): 4 - 6 Was the patient admitted via the E.D.?: Yes Comorbidities: Diabetes w/o Complication E.D. Visits: 0 Answers: Total Score: 8 Risk of Readmission: Low Risk Care Management Discharge Plan Reason for Hospitalization: Hypotension with bradycardia, dehydration; currently admitted to the hospital for further studies and hydration; n.p.o Discharge Plan: [place] will return home when ready per MD. He will follow up with his PCP, outpatient physical therapist and surgery (03/19) as well as his plan of care as prescribed. He will transport via private vehicle with family. Patient/Family Education Needs: Review discharge instructions, discuss Ask Me Three.
== END 2023-03-15 12:53 | disposition home or self-care (01) | DRG 415 ==
LOC: ER 05:26 → MS 06:27
PROVIDERS: Family Medicine; Nurse Practitioner Family; Surgery; Admitting Provider Surgery; Emergency Provider Emergency Medicine Emergency Medical Services; PCP Nurse Practitioner Family; Visit Provider Surgery
PROC: 0FT44ZZ Resection of Gallbladder, Percutaneous Endoscopic Approach (ICD-10-PCS; CPT 47562; principal; 2023-03-13 11:15)
DX: K81.2 Acute cholecystitis with chronic cholecystitis (principal); D69.3 Immune thrombocytopenic purpura; I42.9 Cardiomyopathy, unspecified; K91.61 Intraoperative hemorrhage and hematoma of a digestive system organ or structure complicating a digestive system procedure; K82.A1 Gangrene of gallbladder in cholecystitis; I95.9 Hypotension, unspecified; K31.89 Other diseases of stomach and duodenum; K21.9 Gastro-esophageal reflux disease without esophagitis; G47.33 Obstructive sleep apnea (adult) (pediatric); E78.5 Hyperlipidemia, unspecified; Z53.31 Laparoscopic surgical procedure converted to open procedure; Y83.8 Other surgical procedures as the cause of abnormal reaction of the patient, or of later complication, without mention of misadventure at the time of the procedure; Z79.4 Long term (current) use of insulin; Z79.84 Long term (current) use of oral hypoglycemic drugs; I34.0 Nonrheumatic mitral (valve) insufficiency; E11.9 Type 2 diabetes mellitus without complications; R35.1 Nocturia; I48.0 Paroxysmal atrial fibrillation; I49.1 Atrial premature depolarization
CPT/HCPCS: 47600; 36415; 76604; 76705; 76775; 80048; 80053; 80076; 83690; 85027; 86850; 86900; 86901; 87040; 93005; 93308; 99222; 99232; 71045; 71260; 74018; 74177; 76700; 81003; 83605; 83735; 83880; 84443; 84484; 85025; 85610; 85730; 86140; 88304; 93010; 99223; 99233; J0696; J1100; J1170; J2001; J2270; J2405; J2543; J2704; J3490

== ENCOUNTER → 2023-03-19 12:45 | Outpatient (BNVA) | payer MEDICARE, BC, SELFPAY | PROVIDERS: PCP Nurse Practitioner Family; Referring Provider Nurse Practitioner Family; Visit Provider Physical Therapy Assistant | DX: Z48.815 Encounter for surgical aftercare following surgery on the digestive system (principal); Z90.49 Acquired absence of other specified parts of digestive tract ==

== ENCOUNTER → 2023-03-27 12:44 | Outpatient (BNVA) | payer MEDICARE, BC, SELFPAY | PROVIDERS: PCP Nurse Practitioner Family; Referring Provider Nurse Practitioner Family; Visit Provider Physical Therapy Assistant | DX: Z48.815 Encounter for surgical aftercare following surgery on the digestive system (principal) ==

== ENCOUNTER → 2023-04-03 14:07 | Outpatient (BNVA) | payer MEDICARE, BC, SELFPAY | PROVIDERS: PCP Nurse Practitioner Family; Referring Provider Nurse Practitioner Family; Visit Provider Surgery | DX: Z48.815 Encounter for surgical aftercare following surgery on the digestive system (principal) ==

== ENCOUNTER 2023-05-13 15:58 | Outpatient (REF) | payer MEDICARE, BC, SELFPAY ==
[2023-05-13 19:04] LABS: HDL Cholesterol 44 mg/dL (40-60); LDL CHOLESTEROL 75 mg/dL (<100)
[2023-05-13 19:35] LABS: Creatine Kinase 124 U/L (39-308)
== END 2023-05-13 15:59 | disposition home or self-care (01) ==
LOC: NCHCN 15:58
PROVIDERS: PCP Nurse Practitioner Family; Visit Provider Nurse Practitioner Family
DX: E11.9 Type 2 diabetes mellitus without complications (principal); E78.5 Hyperlipidemia, unspecified
CPT/HCPCS: 82550; 83721; 83718

== ENCOUNTER 2023-05-21 03:26 | Outpatient (CLI) | payer MEDICARE, BC, SELFPAY ==
[2023-05-21 14:01] LABS: ALT 20 U/L (16-63); AST 15 U/L (15-37); Alkaline Phosphatase 80 U/L (46-116); Anion Gap 7.6 mmol/L (3-11); BUN 21 mg/dL (7-18); Bilirubin, Direct 0.2 mg/dL (0.0-0.2); CO2 28.4 mmol/L (21.0-32.0); CREATININE 1.1 mg/dL (0.70-1.30); Calcium 9.4 mg/dL (8.5-10.1); Chloride 103 mmol/L (98-107); Estimated GFR 70.88 (mL/min/1.73m2); Glucose 188 mg/dL (74-106); Potassium 3.7 mmol/L (3.5-5.1); Sodium 139 mmol/L (136-145); TSH 3.61 uIU/mL (0.36-3.74); Total Protein 7.3 g/dL (6.4-8.2)
== END 2023-05-21 03:27 | disposition home or self-care (01) ==
LOC: LBO 03:26
PROVIDERS: PCP Nurse Practitioner Family; Visit Provider Internal Medicine Cardiovascular Disease
DX: I48.19 Other persistent atrial fibrillation (principal); Z79.899 Other long term (current) drug therapy
CPT/HCPCS: 36415; 80048; 80076; 84443

== ENCOUNTER → 2023-07-08 11:26 | Outpatient (BNVA) | payer MEDICARE, BC, SELFPAY | PROVIDERS: PCP Nurse Practitioner Family; Visit Provider Internal Medicine Cardiovascular Disease | DX: I48.0 Paroxysmal atrial fibrillation (principal); Z98.890 Other specified postprocedural states; I42.9 Cardiomyopathy, unspecified | CPT/HCPCS: 99213 ==

== ENCOUNTER 2023-08-12 17:45 | Outpatient (REF) | payer MEDICARE, BC, SELFPAY ==
--- OUTSIDE RECORDS SUMMARY | 2023-08-12 17:47 | XMS_ITS | Continuity of Care Document ---
Author Name Unknown Organization [facility] Address [address] [place] [id number] Care Team Providers Care Fishing Accessories Maker Name Role Phone VANESSADayron VALDEZ Padgett Primary Care Physician [phone] Encounter LTTL_[place] FIN NBR [id number] Date(s): 07/19/22 - 07/19/[address] [address]- [place] Discharge Disposition: Home or Self Care Attending Physician: JANNETH MORA Admitting Physician: JANNETH MORA Referring Physician: JANNETH MORA Allergies, Adverse Reactions, Alerts Substance Reaction Severity Status amiodarone 1 Moderate Active sulfones Unknown Active 1thrombocytopenia 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 Functional Status 07/19/22 Breakfast Percent 100 Medications digoxin 125 mcg (0.125 mg) oral tablet 125 mcg = 1 tab, Oral, Daily, # 30 tab, 0 Refill(s) Start Date: 07/19/22 Status: Ordered glimepiride 4 mg oral tablet 4 mg = 1 tab, Oral, BID, # 30 tab, 0 Refill(s) Start Date: 07/19/22 Status: Ordered Levemir 50 units =, Subcutaneous, Daily, 0 Refill(s) Start Date: 07/19/22 Status: Ordered Melatonin 10 mg oral capsule 2 tab, every night at bedtime, 0 Refill(s) Start Date: 07/19/22 Status: Ordered Metamucil 3.4 g/5.2 g oral powder for reconstitution 1.7 g =, Oral, TID, PRN as needed for constipation, # 283 g, 0 Refill(s) Start Date: 07/19/22 Status: Ordered metFORMIN 1000 mg oral tablet 1,000 mg = 1 tab, Oral, BID, # 60 tab, 0 Refill(s) Start Date: 07/19/22 Status: Ordered metoprolol succinate 100 mg oral capsule, extended release 100 mg = 1 cap, Oral, Daily, # 30 cap, 0 Refill(s) Start Date: 07/19/22 Status: Ordered [employer] 1000 mg oral capsule 1,000 mg = 1 cap, BID, 0 Refill(s) Start Date: 07/19/22 Status: Ordered omeprazole 20 mg oral delayed release tablet 20 mg = 1 tab, Oral, Daily, PRN heartburn, # 30 tab, 0 Refill(s) Start Date: 07/19/22 Status: Ordered potassium citrate 10 mEq oral tablet, extended release 10 mEq = 1 tab, Oral, TID, # 90 tab, 0 Refill(s) Start Date: 07/19/22 Status: Ordered pravastatin 20 mg oral tablet 20 mg = 1 tab, Oral, BID, # 30 tab, 0 Refill(s) Start Date: 07/19/22 Status: Ordered simethicone 80 mg oral tablet, chewable 80 mg = 1 tab, Chewed, QID, # 12 tab, 0 Refill(s) Start Date: 07/19/22 Status: Ordered Vitamin B12 500 mcg oral tablet 500 mcg = 1 tab, Oral, BID, # 30 tab, 0 Refill(s) Start Date: 07/19/22 Status: Ordered Xarelto 20 mg oral tablet 20 mg = 1 tab, Oral, every morning, # 30 tab, 0 Refill(s) Start Date: 07/19/22 Status: Ordered zolpidem 10 mg oral tablet 10 mg = 1 tab, Oral, every day at bedtime, PRN as needed for insomnia, 0 Refill(s) Start Date: 07/19/22 Status: Ordered Results Laboratory List Name Date Glucose POCT 07/19/22 Most recent to oldest [Reference Range]: 1 Glucose POC 162 *NA* (07/19/22 9:01 AM) Vital Signs Most recent to oldest [Reference Range]: 1 2 3 Temperature Temporal Artery [36-38 Deg C] 36.6 Deg C (07/19/22 9:10 AM) Temperature Temporal Artery (DegF) [97.3-100 Deg F] 97.88 Deg F (07/19/22 9:10 AM) 97.88 Deg F (07/19/22 9:10 AM) Peripheral Pulse Rate [60-100 bpm] 62 bpm (07/19/22 11:00 AM) 60 bpm (07/19/22 10:45 AM) 69 bpm (07/19/22 10:30 AM) Heart Rate Monitored [60-100 bpm] 68 bpm (07/19/22 11:00 AM) 69 bpm (07/19/22 10:45 AM) 69 bpm (07/19/22 10:30 AM) Respiratory Rate [12-24 br/min] 15 br/min (07/19/22 11:00 AM) 19 br/min (07/19/22 10:45 AM) 27 br/min *HI* (07/19/22 10:30 AM) Blood Pressure [90-140/60-90 mmHg] 114/75mmHg (07/19/22 11:00 AM) 101/67mmHg (07/19/22 10:30 AM) 96/71mmHg (07/19/22 10:15 AM) Mean Arterial Pressure, Cuff [65-140 mmHg] 88 mmHg (07/19/22 11:00 AM) 78 mmHg (07/19/22 10:30 AM) 79 mmHg (07/19/22 10:15 AM) Mean Arterial Pressure Cuff 87 mmHg (07/19/22 11:00 AM) 79 mmHg (07/19/22 10:30 AM) 80 mmHg (07/19/22 10:15 AM) Blood Pressure Invasive [90-140/60-90 mmHg] 96/73mmHg (07/19/22 9:00 AM) Mean Arterial Pressure, Invasive [65-140 mmHg] 81 mmHg (07/19/22 9:00 AM) Blood Pressure Method Automatic (07/19/22 9:00 AM) Mean Arterial Pressure Invasive 85 mmHg (07/19/22 9:00 AM) Weight 106.3 kg (07/19/22 9:03 AM) Weight Measured (lbs) 234.351 lb (07/19/22 9:03 AM) Height 172 cm (07/19/22 9:03 AM) Height/Length Measured (inches) 67.72 inch (07/19/22 9:03 AM) BSA Measured 2.25 m2 (07/19/22 9:03 AM) Body Mass Index 35.93 kg/m2 (07/19/22 9:03 AM) Discharge instructions * Event Display: Discharge Instructions EKG study * Event Display: Electrocardiogram EKG Progress note * Event Display: Progress Note - Physician Patient Care team information Personnel Name: VALDEZ WILKINSON Address: Address: [facility] [address]- [place]
[2023-08-12 18:56] LABS: Anion Gap 11.2 mmol/L (3-11); BUN 20 mg/dL (7-18); CO2 25.8 mmol/L (21.0-32.0); CREATININE 1.1 mg/dL (0.70-1.30); Chloride 105 mmol/L (98-107); Estimated GFR 70.88 (mL/min/1.73m2); Glucose 139 mg/dL (74-106); Potassium 4.3 mmol/L (3.5-5.1); Sodium 142 mmol/L (136-145)
[2023-08-12 19:31] LABS: Hemoglobin A1C 6.8 % (<5.7)
== END 2023-08-12 17:46 | disposition home or self-care (01) ==
LOC: NCHCN 17:45
PROVIDERS: PCP Nurse Practitioner Family; Visit Provider Nurse Practitioner Family
DX: E11.9 Type 2 diabetes mellitus without complications (principal)
CPT/HCPCS: 80048; 83036

== ENCOUNTER → 2023-09-09 13:04 | Outpatient (BNVA) | payer MEDICARE, BC, SELFPAY | PROVIDERS: PCP Nurse Practitioner Family; Referring Provider Nurse Practitioner Family; Visit Provider Physical Therapy Assistant ==

== ENCOUNTER → 2023-10-07 13:35 | Outpatient (BNVA) | payer MEDICARE, BC, SELFPAY | PROVIDERS: PCP Nurse Practitioner Family; Referring Provider Podiatrist; Visit Provider Physical Therapy Assistant | DX: E11.59 Type 2 diabetes mellitus with other circulatory complications (principal) | CPT/HCPCS: 93922 ==

== ENCOUNTER → 2023-10-17 13:31 | Outpatient (BNVA) | payer MEDICARE, BC, SELFPAY | PROVIDERS: PCP Nurse Practitioner Family; Referring Provider Nurse Practitioner Family; Visit Provider Podiatrist | DX: E11.51 Type 2 diabetes mellitus with diabetic peripheral angiopathy without gangrene (principal); E11.42 Type 2 diabetes mellitus with diabetic polyneuropathy; B35.1 Tinea unguium; L60.3 Nail dystrophy | CPT/HCPCS: 11721 ==

== ENCOUNTER → 2024-01-06 11:35 | Outpatient (BNVA) | payer MEDICARE, BC, SELFPAY | PROVIDERS: PCP Nurse Practitioner Family; Referring Provider Nurse Practitioner Family; Visit Provider Internal Medicine Cardiovascular Disease | DX: I48.0 Paroxysmal atrial fibrillation (principal); I42.9 Cardiomyopathy, unspecified | CPT/HCPCS: 99213 ==

== ENCOUNTER → 2024-02-12 13:16 | Outpatient (BNVA) | payer MEDICARE, BC, SELFPAY | PROVIDERS: PCP Family Medicine; Referring Provider Family Medicine; Visit Provider Podiatrist | DX: E11.42 Type 2 diabetes mellitus with diabetic polyneuropathy (principal); Z79.4 Long term (current) use of insulin; B35.1 Tinea unguium; L60.3 Nail dystrophy | CPT/HCPCS: 11721 ==

== ENCOUNTER 2024-02-28 13:10 | Outpatient (REF) | payer MEDICARE, BC, SELFPAY ==
[2024-02-28 16:11] LABS: HCT 45.8 % (40.0-50.0); HGB 15.5 g/dL (13.5-17.5); MCH 33.1 pg (27.0-33.0); MCHC 33.8 % (32.0-36.0); MCV 98 fL (80-95); MPV 11.1 fL (8.0-11.0); Platelet Count 232 10^3/uL (130-400); RBC 4.68 10^6/uL (4.36-5.78); RDW 13.6 % (11.8-14.1); RDW-SD 49.2 fL; WBC 9.63 10^3/uL (4.4-10.8)
[2024-02-28 16:26] LABS: ALT 32 U/L (16-63); AST 18 U/L (15-37); Albumin 3.9 g/dL (3.4-5.0); Alkaline Phosphatase 79 U/L (46-116); Anion Gap 10.9 mmol/L (3-11); BUN 23 mg/dL (7-18); Bilirubin, Total 1.06 mg/dL (0.2-1.0); CO2 27.1 mmol/L (21.0-32.0); CREATININE 0.9 mg/dL (0.70-1.30); Calcium 9.1 mg/dL (8.5-10.1); Calculated LDL 85 mg/dL (<100); Chloride 105 mmol/L (98-107); Cholesterol 147 mg/dL (<200); Estimated GFR 89.62 (mL/min/1.73m2); Glucose 112 mg/dL (74-106); HDL Cholesterol 48 mg/dL (40-60); Potassium 4.2 mmol/L (3.5-5.1); Sodium 143 mmol/L (136-145); TSH (W/Ref FT4) 4.36 uIU/mL (0.36-3.74); Total Protein 6.5 g/dL (6.4-8.2); Triglyceride 72 mg/dL (<150)
[2024-02-28 16:54] LABS: FREE T4 1.15 ng/dL (0.76-1.46)
[2024-02-28 17:01] LABS: Hemoglobin A1C 7.1 % (<5.7)
[2024-02-28 23:18] LABS: PSA, Screening 0.3 ng/mL (<=6.5)
[2024-02-29 15:33] LABS: Vitamin B12 339 pg/mL (193-986)
== END 2024-02-28 13:11 | disposition home or self-care (01) ==
LOC: NCHCN 13:10
PROVIDERS: PCP Family Medicine; Visit Provider Family Medicine
DX: E11.9 Type 2 diabetes mellitus without complications (principal); E78.5 Hyperlipidemia, unspecified; K21.9 Gastro-esophageal reflux disease without esophagitis; R71.8 Other abnormality of red blood cells; R94.6 Abnormal results of thyroid function studies; N40.0 Benign prostatic hyperplasia without lower urinary tract symptoms; Z12.5 Encounter for screening for malignant neoplasm of prostate; Z79.899 Other long term (current) drug therapy
CPT/HCPCS: 80053; 80061; 84153; 85027; 82607; 83036; 84439; 84443

== ENCOUNTER 2024-06-11 18:06 | Outpatient (REF) | payer MEDICARE, BC, SELFPAY ==
[2024-06-11 17:15] LABS: Hemoglobin A1C 6.8 % (<5.7)
[2024-06-11 17:44] LABS: Anion Gap 13.1 mmol/L (3-11); BUN 19 mg/dL (7-18); CO2 24.9 mmol/L (21.0-32.0); Calcium 9.1 mg/dL (8.5-10.1); Chloride 107 mmol/L (98-107); Estimated GFR 78.98 (mL/min/1.73m2); Glucose 145 mg/dL (74-106); Potassium 4.1 mmol/L (3.5-5.1); Sodium 145 mmol/L (136-145); TSH 3.94 uIU/Ml (0.36-3.74)
--- OUTSIDE RECORDS SUMMARY | 2024-06-11 18:07 | XMS_ITS | Clinical Summary ---
Author Organization [facility] Address [address] [facility] [place] [address] Care Team Providers Care Flamer After Lasting Name Role Phone Milly Domenica Padgett APRN Primary Care Provider [phone] Allergies Active Allergy Reactions Criticality Noted Date Comments Sulfone Other (See Comments) 03/11/2022 Thrombocytopenia- history of drug induced ITP with amiodarone vs torsemide vs other Medications Medication Sig Dispensed Refills Start Date End Date Status insulin detemir U-100 (Levemir) 100 unit/mL (3 mL) Insulin Pen Inject 12 Units subcutaneously 2 times daily. Active glimepiride (AMARYL) 4 mg Tablet Take 4 mg by mouth daily. Active pravastatin (Pravachol) 20 mg Tablet Take 20 mg by mouth daily. Active potassium citrate SR (Urocit) 10 mEq (1,080 mg) Tablet Sustained Release Take 40 mEq by mouth daily. Active omeprazole (PriLOSEC) 20 mg Capsule, Delayed Release(E.C.) Take 20 mg by mouth daily as needed. Active sildenafiL (VIAGRA) 50 mg Tablet Take 50 mg by mouth as needed for Erectile Dysfunction. Active metoprolol succinate XL (Toprol-XL) 100 mg Tablet Sustained Release 24 hr Take 1 tablet by mouth daily. 90 tablet 3 03/11/2022 Active rivaroxaban (Xarelto) 20 mg Tablet Take 1 tablet by mouth daily. 90 tablet 3 03/11/2022 Active insulin needles, disposable, 29 gauge x 1/2 Needle 31 g by Standard [employer] Index.(Non-Drug; Combo Route) route daily. 31Gx1/4 Active terbinafine HCL (LamISIL) 1 % Cream Apply topically as needed. Active metFORMIN (Glucophage) 1,000 mg Tablet Take 1 tablet by mouth 2 times daily (with meals). 60 tablet 08/29/2022 Active clotrimazole-betam ethasone (Lotrisone) 1-0.05 % Cream Apply 1 each topically 2 times daily as needed. Active doxepin (SINEquan) 10 mg capsule Take 10 mg by mouth nightly. Active zolpidem (Ambien) 10 mg tablet Take 10 mg by mouth nightly as needed for Sleep. Active AMIOdarone (Pacerone) 200 mg tablet Take 200 mg by mouth daily. Active dapagliflozin propanediol (Farxiga) 10 mg tablet Take 10 mg by mouth daily. 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 Shell presents for evaluation of tachycardia. EKG today notable for 201 atrial flutter, suspicious for clockwise atrial flutter. No prior history of cardiac disease, ID, or cardiac surgery. We discussed management this rhythm. Per his vital sign checks at home's history of paroxysmal otherwise asymptomatic, though he may be having some worsening shortness of breath due to this arrhythmia. Given the concern for potential right atrial flutter I do think an EP study and ablation would be reasonable, however if he would have a left-sided atrial flutter I think management with antiarrhythmic drugs may be more patterson. To that end, we will plan for an EP study. If his [...] present time he is in a flutter with 2-1 AV block. His vital signs are otherwise normal. Per his home review he is paroxysmal. We will plan on uptitrating his metoprolol succinate to 75 mg daily for further rate control. We did advise him to call us if he develops any worsening shortness of breath, chest discomfort, syncope, or any other symptoms to expedite his evaluation. Type 2 diabetes mellitus 06/25/2016 Resolved Problems Problem Noted Date Diagnosed Date Resolved Date Acute hypoxemic respiratory failure 03/02/2022 03/02/2022 Acute systolic heart failure 02/28/2022 08/30/2022 Overview (03/02/2022): HF w/ reduced EF Encounters Date Type Department Care Team Description 06/10/2024 2:00 PM EDT Office Visit Cardiology at [address] [phone] Curtis Arredondo MD buttermaker helper current use of antiarrhythmic drug 06/10/2024 Travel from Last 3 Months Social History Tobacco Use Types Packs/Day Years Used Date Smoking Tobacco: Never Smokeless Tobacco: Never Alcohol Use Standard Drinks/Week Comments Not Currently 0 (1 standard drink = 0.6 oz pur e alcohol) Overall Financial Resource Strain (CARDIA) Answe r Date Recorded How hard is it for you to pa y for the very basics like food, housing, medical care, and heating? Not hard at all 03/23/2022 Hunger Vital Sign Answer Date Recorded Within the past 12 months, y ou worried that your food would run out before you got the money to buy more. Never true 03/23/20 22 Ran Out of Food in the Last Year Not on file 03/23/2022 PRAPARE - Transportation Answer Date Re corded In the past 12 months, has l ack of transportation kept you from medical appointments or from getting medications? No 03/03 In the past 12 months, has l ack of transportation kept you from meetings, work, or from getting things needed for daily living? No 03/23/2022 Housing Stability Vital Sign Answer Momo e Recorded In the last 12 months, was t here a time when you were not able to pay the mortgage or rent on time? No 03/23/2022 In the last 12 months, how many places have you lived? 1 03/23/2022 In the last 12 months, was t here a time when you did not have a steady place to sleep or slept in a detention (including now)? No 03/23/2022 Sex and Gender Information Value Date Recorded Sex Assigned at Not on file Gender Identity Not on file Sexual Orientation Not on file Last Filed Vital Signs Vital Sign Reading Time Taken Comments Blood Pressure 112/62 06/10/2024 2:16 PM EDT Pulse 54 06/10/2024 2:16 PM EDT per e cg Temperature 36.6 ??C (97.9 ??F) 08/29/2022 12:[address] Respiratory Rate 16 08/29/2022 12:13 PM EST Oxygen Saturation 99% 10/02/2022 10:59 AM EST Inhaled Oxygen Concentration - - Weight 110.7 kg (244 lb) 06/10/2024 2:16 PM EDT Height 172.7 cm (5' 8) 06/10/2024 2:16 PM EDT Body Mass Index 37.1 06/10/2024 2:16 PM EDT Plan of Treatment Upcoming Encounters Date Type Department Care Team (Late st Contact Info) Description 12/23/2024 3:30 PM EDT Office Visit Cardiology at [address] [place] [address] Carlos Eduardo Quan, PA [facility] [place] [address] Health Maintenance Due Date Last Done Comments CT Colonography 1950 Colonoscopy 1950 Colorectal Cancer Screening 1950 FIT DNA 1950 FIT 1950 Sigmoidoscopy (10 year) with FIT yearly 1950 Sigmoidoscopy 1950 Pneumoccocal Vaccine: 65+ (1 of 2 - PCV) 02/18/1956 DM Opthalmology Exam 02/18/1960 DM Urine Microalbumin yearly 02/18/1960 Hepatitis C Screening 02/18/1968 Tetanus/Diphtheria/Pertussis Vaccines (1 - Tdap) 1969 Zoster vaccine (1 of 2) 02/18/2000 Advance Directive 2005 DM Hemoglobin A1c 11/26/2022 08/28/2022, 03/01/2022 Covid-19 Vaccine (1 - 2022-2 4 season) 2024 Influenza (Flu) vaccine (1 o f 1 - Influenza standard series) 05/03/2024 DM Creatinine yearly 05/21/2024 05/21/2023, 10/02/2022, 08/28/2022, Additional history exists Lipid Screening Discontinued 02/28/2022 Procedures Procedure Name Priority Date/Time Associated Diagnosis Comments BASIC METABOLIC PANEL Routine 05/21/2023 HC HEMOGLOBIN A1C STAT 08/28/2022 4:5 2 PM EST LIPID PANEL (REFLEX DIRECT LDL) Routine 02/28/2022 9:30 PM EDT from Last 3 Months or Most Recently Relevant to Health Maintenance Results * Basic Metabolic Panel (non-fasting) (05/21/2023) Glucose 188 Blood Urea Nitrogen 21 Creatinine 1.1 Est Glomerular Filtration Rate 70.88 Sodium 139 Potassium 3.7 Chloride 103 Calcium 9.4 Protein, Total 7.3 Albumin 4.0 Bilirubin, Total 1.0 Alkaline Phosphatase 80 Anion Gap 8 Aspartate Aminotransferase 15 Alanine Aminotransferase 20 Thyroid Stimulating Hormone 3.61 Blood Historical Provider CHEMISTRY ORDERAB LES * (ABNORMAL) Hemoglobin A1c (08/28/2022 4:52 PM EST) Hemoglobin A1c 8.2(H) 4.3 - 5.6 % [facility] Comment: Reference Range: 4.3 - 5.6% 5.7 - 6.4% - Increased Risk of Developing Diabetes Mellitus >= 6.5% - Consistent with diagnosis of Diabetes Mellitus In the absence of hyperglycemia (i.e. plasma glucose > 200 mg/dL) or classic symptoms of hyperglycemia a repeat measurement of HbA1c should be performed on a separate sample to confirm the diagnosis. Diagnosis and Classification of Diabetes Mellitus, Diabetes Care 2013; 36: Suppl. 1, S67-74 Estimated Average Glucose See note mg/dL [facility] Comment: Estimated Average Glucose not appropriate for patients over 70 years of age. eAG equivalents for HbA1c percentages: HbA1c(%) ?eAG(mg/dL) 6.0 ?126 6.5 ?140 7.0 ?154 7.5 ?169 8.0 ?183 8.5 ?197 9.0 ?212 9.5 ?226 10.0 ? 240 Limitations: The eAG calculation has not been validated on women, individuals below 18 years old and above 70 years old, and individuals with hemoglobinopathies. Additional resources are available on the ADA website. Hudson MARIE, Archana J, Christiano R, et al. ??Translating the A1C assay into estimated average glucose values. ??Diabetes Care 2008:31(8):8116-0134. Blood 08/28/2022 4:52 PM EST 08/28/2022 5:15 PM EST Narrative Resulting Agency Comment Spec In Lab Michael Barrios MD CHEMISTRY ORDERABLES [facility] [place] [address] * Lipid Panel (Reflex Direct LDL) (02/28/2022 9:30 PM EDT) [facility] Signature Cholesterol, Total 96 mg/dL [facility] Comment: Lower Risk: <200 mg/dL Average Risk: 200-239 mg/dL Higher Risk: >em=299 mg/dL Triglyceride 67 mg/dL [facility] Comment: Average Risk/Lower Risk: <150 mg/dL Borderline High Risk: 150-199 mg/dL High Risk: 200-499 mg/dL Very High Risk: >vh=162 mg/dL HDL Cholesterol 26 mg/dL [facility] Comment: Males: ?? Higher Risk: <40 mg/dL Females: ?? Higher Risk: <50 mg/dL LDL Cholesterol 57 mg/dL [facility] Comment: Lowest Risk: <100 mg/dL Lower Risk: 100-129 mg/dL Borderline High Risk: 130-159 mg/dL High Risk: 160-189 mg/dL Very High Risk: >oi=506 mg/dL Cholesterol/HDL Ratio 3.7 ratio [facility] Lipid Interpretation See Note [facility] Comment: Lipid management should be guided by a patient? s ASCVD risk, goals and preferences. ACC/AHA Guidelines recommend high intensity statin if clinical ASCVD or LDL greater than or equal to 190 mg/dL. [email or web address] Ghost [email or web address]/KVG-JWF-Wnptajwku Adults aged 40-75 with LDL 70-189 mg/dL should have their 10 year ASCVD risk estimated with the ACC/AHA ASCVD risk estimator project manager http://tools.acc.org/YBSDI-Vtev-Kaqoowsaj/ Statin should be discussed if risk greater than or equal to 7.5% in non-diabetics. With diabetes, moderate intensity statin is recommended if risk less than 7.5%, high intensity if risk greater than or equal to 7.5%. Annual lipid monitoring on statins is not necessary. Evaluate secondary causes of Triglycerides greater than 500 mg/dL or LDL greater than 190 mg/dL: See table 6 of ACC/AHA Guideline. Lifestyle modification is a critical component of ASCVD risk reduction. Blood 02/28/2022 9:30 PM EDT 02/28/2022 9:40 PM EDT Narrative Resulting Agency Comment Spec In Lab Jeremy Jackman MD CHEMISTRY ORDERABLES [facility] [address] [facility] [place] [address] from Last 3 Months or Most Recently Relevant to Health Maintenance Advance Directives * Attempt Cardiopulmonary Resuscitation - Inpatient (Latest Code Status on File) Date Activated Date Inactivated Comments 08/28/2022 1:05 PM 08/29/2022 6:07 PM Question Answer Comments Code Status decision made by: Patient * Attempt Cardiopulmonary Resuscitation - Inpatient Date Activated Date Inactivated Comments 08/28/2022 1:05 PM 08/28/2022 1:05 PM Question Answer Comments Code Status decision made by: Patient * Attempt Cardiopulmonary Resuscitation - Inpatient Date Activated Date Inactivated Comments 02/28/2022 3:48 PM 03/11/2022 4:18 PM Question Answer Comments Code Status decision made by: Patient * Attempt Cardiopulmonary Resuscitation - Inpatient Date Activated Date Inactivated Comments 01/02/2022 7:11 AM 01/02/2022 4:35 PM Question Answer Comments Code Status decision made by: Patient Care Teams Flamer After Lasting Relationship Specialty Start Date End Date Domenica Atkins, COPRA SAMPLER PCP - General Family Medicine 11/21/21
--- OUTSIDE RECORDS SUMMARY | 2024-06-11 18:07 | XMS_ITS | Encounter Summary ---
Author Organization [facility] [place] [address] Care Team Providers Care [employer] Physical [employer] Teacher Name Role Phone Milly Domenica Padgett APRN Primary Care Provider [phone] Reason for Visit * Reason Comments Atrial Fibrillation Congestive Heart Failure Encounter Details Date Type Department Care Team (Latest Contact Info) Description 06/10/2024 2:00 PM EDT Office Visit Cardiology at [address] [phone] Curtis Arredondo MD [facility] [place] [address] shelter current use of antiarrhythmic drug Social History Tobacco Use Types Packs/Day Years [...] place to sleep or slept in a skilled nursing (including now)? No 03/23/2022 Sex and Gender Information Value Date Recorded Sex Assigned at Not on file Gender Identity Not on file Sexual Orientation Not on file documented as of this encounter Last Filed Vital Signs Vital Sign Reading Time Taken Comments Blood Pressure 112/62 06/10/2024 2:16 PM EDT Pulse 54 06/10/2024 2:16 PM EDT per e cg Temperature - - Respiratory Rate - - Oxygen Saturation - - Inhaled Oxygen Concentration - - Weight 110.7 kg (244 lb) 06/10/2024 2:16 PM EDT Height 172.7 cm (5' 8) 06/10/2024 2:16 PM EDT Body Mass Index 37.1 06/10/2024 2:16 PM EDT documented in this encounter Progress Notes * Curtis Arredondo MD - 06/10/2024 2:00 PM EDT Images from the original note were not included. Section of Cardiology/Cardiac Electrophysiology Clinical Cardiac Electrophysiology Follow Up Patient ID Wilber Shell 1950 [id number] Wilber Shell is following up in EP clinic Chief Complaint Fatigue, cardiomyopathy, atrial arrhythmias h/o Atrial flutter ablation History This is a 74 y.o. male following up/being seen in clinic for atrial arrhythmias - he was last seen in the EP clinic by myself in May of 2023. From that visit '..he was recently an inpatient forEPS - he was found to have a tyepical atrial flutter (which was ablated) but also substrate for atypical atrial flutter and atrial fibrillation. He did well for a few days after the procedure - no issues with access sites, but a few days later,he developed some dyspnea and fatigue. When he was seen in follow up at the EP clinic in [place],he was in AF/RVR - plans were made to proceed with cardioversion and drug loading, but he ended up missing some doses of DOAC. Before he could be scheduled for a SYDNEY cardioversion, he ended up developing worsening heart failure and was admitted for diuresis, heart failure management and possible cardioversion. Unfortunately, he then developed ITP. He was discharged with heart failure management and on rate control...' In October of last year, he was on 200 mg a day of amiodarone and feeling well. 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 No episodes of AF/Afl in the last few months, No lightheadedness, dizziness or syncope. No chest pain. No heart failure symptoms (no edema, PND, orthopnea) Weight stable - 240-250 lbs He remains active - can climb one flight of stairs. He develops some shortness of breath with physical activity, but nothing remarkable Had cataract surgery - no issues Problem List Patient Active Problem List Diagnosis Chronic systolic heart failure Persistent atrial fibrillation Trial of dofetilide - QTc prolonged to >550ms after second dose; discontinued Drug-induced ITP JEEVAN on CPAP Macrocytic anemia Atrial fibrillation Status post ablation of atrial flutter 01/02/2022 Type 2 diabetes mellitus Review of Systems Review of Systems Constitutional: Positive for malaise/fatigue. Negative for night sweats. Cardiovascular: Positive for dyspnea on exertion. Meds Current Outpatient Medications Medication Sig Dispense Refill AMIOdarone (Pacerone) 200 mg tablet Take 200 mg by mouth daily. dapagliflozin propanediol (Farxiga) 10 mg tablet Take 10 mg by mouth daily. doxepin (SINEquan) 10 mg capsule Take 10 mg by mouth nightly. zolpidem (Ambien) 10 mg tablet Take 10 mg by mouth nightly as needed for Sleep. clotrimazole-betamethasone (Lotrisone) 1-0.05 % Cream Apply 1 each topically 2 times daily as needed. metFORMIN (Glucophage) 1,000 mg Tablet Take 1 tablet by mouth 2 times daily (with meals). 60 tablet terbinafine HCL (LamISIL) 1 % Cream Apply topically as needed. insulin needles, disposable, 29 gauge x 1/2 Needle 31 g by [facility]Non-Drug; Combo Route) route daily. 31Gx1/4 metoprolol succinate XL (Toprol-XL) 100 mg Tablet Sustained Release 24 hr Take 1 tablet by mouth daily. 90 tablet 3 rivaroxaban (Xarelto) 20 mg Tablet Take 1 tablet by mouth daily. 90 tablet 3 insulin detemir U-100 (Levemir) 100 unit/mL (3 mL) Insulin Pen Inject 12 Units subcutaneously 2 times daily. glimepiride (AMARYL) 4 mg Tablet Take 4 mg by mouth daily. pravastatin (Pravachol) 20 mg Tablet Take 20 mg by mouth daily. potassium citrate SR (Urocit) 10 mEq (1,080 mg) Tablet Sustained Release Take 40 mEq by mouth daily. omeprazole (PriLOSEC) 20 mg Capsule, Delayed Release(E.C.) Take 20 mg by mouth daily as needed. sildenafiL (VIAGRA) 50 mg Tablet Take 50 mg by mouth as needed for Erectile Dysfunction. No current facility-administered medications for this visit. Social History Social History Socioeconomic History Marital status: Spouse name: None Number of children: None Years of education: None Highest education level: None Occupational History None Tobacco Use Smoking status: Never Smokeless tobacco: Never Vaping Use Vaping status: Never Used Substance and Sexual Activity Alcohol use: Not Currently Drug use: Never Sexual activity: Not Currently Other Topics Concern None Social History Narrative None Social Determinants of Health Financial Resource Strain: Low Risk (03/23/2022) Overall Financial Resource Strain (CARDIA) Difficulty of Paying Living Expenses: Not hard at all Food Insecurity: Unknown (03/23/2022) Hunger Vital Sign Worried About Running Out of Food in the Last Year: Never true Ran Out of Food in the Last Year: Not on file Transportation Needs: No Transportation Needs (03/23/2022) PRAPARE - Transportation Lack of Transportation (Medical): No Lack of Transportation (Non-Medical): No Physical Activity: Not on file Intimate Partner Violence: Not on file Housing Stability: Low Risk (03/23/2022) Housing Stability Vital Sign Unable to Pay for Housing in the Last Year: No Number of Places Lived in the Last Year: 1 Unstable Housing in the Last Year: No Family History No family history on file. Exam Patient Vitals for the past 24 hrs: Pulse BP 06/10/24 1416 54 112/62 Physical Exam Constitutional: Comments: Body mass index is 37.1 kg/m??. HENT: Mouth/Throat: Pharynx: No oropharyngeal exudate. Cardiovascular: Rate and Rhythm: Normal rate. Pulses: Normal pulses. Pulmonary: Effort: Pulmonary effort is normal. Musculoskeletal: Cervical back: Neck supple. Skin: General: Skin is warm. Neurological: General: No focal deficit present. Mental Status: He is alert. I have personally reviewed the ECG: sinus bradycardia 54 bpm, NC 180ms, QRS 80ms, QT 500ms Impression Wilber Shell is seen in the EP clinic for follow up. He was found to have an atypical atrial flutter at initial presentation in 2021, but a more typical right atrial counterclockwise (isthmus dependent) was ultimately found and ablated. 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 He was loaded with dofetilide in August of 2022, but had marked prolongationof his QTc, so this was discontinued and he was started on amiodarone in September of 2022. Overall he is doing well, I asked him to reduce amiodarone to 150 mg a day (200/100mg on alternating days). Recommendations / Plan A) No changes to meds B) TSH/LFT ordered for amiodarone surveillance; advised re skin protection, eye exam C) Follow up in 6 months CURTIS ARREDONDO MD Cardiac Electrophysiology [facility] T: [phone] F: [phone] 15 minutes of this 20 minute encounter were spent preparing to see [...] 3:30 PM EDT Office Visit Cardiology at [address] [place] [phone] Carlos Eduardo Quan, [facility] [place] [address] Scheduled Orders Name Type Priority Associated Diagnoses Orde r Schedule TSH Lab Routine shelter current use of antiarrhythmic drug Expected: 06/10/2024, Expires: 06/10/2025 Hepatic Function Panel Lab Routine shelter current use of antiarrhythmic drug Expected: 06/10/2024, Expires: 06/10/2025 TSH Lab Routine termite helper current use of antiarrhythmic drug Expected: 06/10/2024, Expires: 06/10/2025 Basic Metabolic Panel Non-fasting Lab Routine termite helper current use of antiarrhythmic drug Expected: 06/10/2024, Expires: 12/10/2024 documented as of this encounter Visit Diagnoses Diagnosis shelter current use of antiarrhythmic drug documented in this encounter Care Teams [employer] Physical [employer] Teacher Relationship Specialty Start Date End Date Domenica Atkins APRN PCP - General Family Medicine 11/21/21 documented as of this encounter
--- OUTSIDE RECORDS SUMMARY | 2024-06-11 18:07 | XMS_ITS | Encounter Summary ---
Author Organization [facility] Address [facility] [place] [address] Care Team Providers Care Physical Therapist Assistant Name Role Phone Milly Domenica Padgett APRN Primary Care Provider [phone] Encounter Details Date Type Department Care Team (Latest Contact Info) Description 06/10/2024 Travel Social History Tobacco Use Types Packs/Day Years [...] place to sleep or slept in a usp (including now)? No 03/23/2022 Sex and Gender Information Value Date Recorded Sex Assigned at Not on file Gender Identity Not on file Sexual Orientation Not on file documented as of this encounter Plan of Treatment Upcoming Encounters Date Type Department Care Team (Late st Contact Info) Description 12/23/2024 3:30 PM EDT Office Visit Cardiology at [address] [place] [address] Carlos Eduardo Quan PA [facility] [address] documented as of this encounter Visit Diagnoses Not on filedocumented in this encounter Care Teams Physical Therapist Assistant Relationship Specialty Start Date End Date Domenica Atkins APRN PCP - General Family Medicine 11/21/21 documented as of this encounter
--- OUTSIDE RECORDS SUMMARY | 2024-06-11 18:08 | XMS_ITS | Encounter Summary ---
Author Organization [facility] Address [facility] [place] [address] Care Team Providers Care Flavoring Maker Name Role Phone Milly Domenica Dayron AGUILAR Primary Care Provider [phone] Encounter Details Date Type Department Care Team (Late st Contact Info) Description 08/28/2022 Orders Only Cardiology at [address] [phone] Brandon Mohr PA [facility] [place] [address] Persistent atrial fibrillation Social History Tobacco Use Types Packs/Day Years [...] place to sleep or slept in a care home (including now)? No 03/23/2022 Sex and Gender Information Value Date Recorded Sex Assigned at Not on file Gender Identity Not on file Sexual Orientation Not on file documented as of this encounter Plan of Treatment Upcoming Encounters Date Type Department Care Team (Late st Contact Info) Description 12/23/2024 3:30 PM EDT Office Visit Cardiology at [address] [phone] Carlos Eduardo Quan, [facility] [place] [address] documented as of this encounter Visit Diagnoses Diagnosis Persistent atrial fibrillation Atrial fibrillation documented in this encounter Care Teams Flavoring Maker Relationship Specialty Start Date End Date Domenica Atkins APRN PCP - General Family Medicine 11/21/21 documented as of this encounter
--- OUTSIDE RECORDS SUMMARY | 2024-06-11 18:08 | XMS_ITS | Encounter Summary ---
Author Organization [facility] Address [facility] [place] [address] Care Team Providers Care Laboratory Veterinarian Name Role Phone Domenica Atkins APRN Primary Care Provider [phone] Encounter Details Date Type Department Care Team (Late st Contact Info) Description 04/27/2022 2:30 PM EDT Office Visit H[place]ology [place] [phone] Porfirio Musa MD [facility] [address] HEMATOLOGY/[place] [address] Leah Ricardo APRN [facility] [place] [address] Josh Medina MD [facility] [address] [place]EMATOLOGY/[place] [address] Drug-induced ITP (Primary Dx) Social History Tobacco Use Types Packs/Day Years [...] money to buy more. Never true 03/23/20 Ran Out of Food in the Last [...] place to sleep or slept in a custodial (including now)? No 03/23/2022 Sex and Gender Information Value Date Recorded Sex Assigned at Not on file Gender Identity Not on file Sexual Orientation Not on file documented as of this encounter Last Filed Vital Signs Vital Sign Reading Time Taken Comments Blood Pressure 118/66 04/27/2022 2:27 PM EDT Pulse 92 04/27/2022 2:27 PM EDT Temperature 36.6 ??C (97.9 ??F) 04/27/2022 2:27 PM ED T Respiratory Rate 20 04/27/2022 2:27 PM EDT Oxygen Saturation 98% 04/27/2022 2:27 PM EDT Inhaled Oxygen Concentration - - Weight 109 kg (240 lb 4.8 oz) 04/27/2022 2:27 PM EDT Height 173 cm (5' 8.11) 04/27/2022 2:27 PM EDT Body Mass Index 36.42 04/27/2022 2:27 PM EDT documented in this encounter Progress Notes * Josh Medina MD - 04/27/2022 2:30 PM EDT Images from the original note were not included. HEMATOLOGY CONSULTATION VISIT NOTE DATE OF VISIT : 04/27/22 REASON FOR VISIT: Wilber Shell is a 72 y.o. 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 The history is obtained from the patient, and I also have reviewed all the available medical records provided by the referring physician and located in the electronic medical records. Records Review: 01/02/2022 Platelet [id number]. Patient was started on torsemide, amiodarone and metoprolol. He was also started on Xarelto in December 2021 after DCCV for atrial fibrillation status post ablation. 02/28/2022 Admitted to the cardiology for heart failure from suspected tachyarrhythmias. Platelet count 108. 03/03/2022 Platelet 169. CBC with normal hemoglobin 13.7 and WBC of 8.9. 03/03/2022 Hematology was consulted who suspected drug-induced ITP from torsemide, amiodarone and metoprolol. Torsemide and amiodarone was held. Peripheral Smear without any diagnostic morphological pathology. IPF normal at 7.3. Dilation performed with PT 22.5, INR 2, PTT 46, fibrinogen 553. Overall negative for DIC. Patient continued to have downtrend in platelet, 56, 49, 37 and then 27. - 03/07/22 Started on IVIG 1 g/kg body weight x 2. Patient's Xarelto was held and started on Lovenox. 03/07/2022 - 03/10/2022 Started on dexamethasone 40 mg daily 03/23/22 10.8/13.8/95 04/27/22 10.6/4.56/184 HISTORY OF PRESENT ILLNESS Wilber Shell is a 72 y.o. 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 He has a history of atrial flutter s/p ablation and DCCV in 12/2021 on Xarelto, history of DM, GERD, JEEVAN on CPAP. In office today, Wilber Shell is here for initial consultation. He is accompanied with his Kindra. He is doing okay. His PCP checked a CBC couple of days ago and his baseline count was 101.He has had no bleeding issues since his discharge. He has been taking Xarelto 20 mg daily regularly. He has few bruises but no active bleeding. He denies any shortness of breath. No palpitations. No drenching night sweats. He initially lost some weight but he has starting gaining weight again. His appetite is really good. His energy is slowly coming back as well. He is not taking torsemide and amiodarone. He is up-to-date with COVID-vaccine. His last COVID booster was on 01/23/2022. Never had any platelet issues before. - No active cardiac/resp/GI issues; Rest of the ROS: Negative Interval history LV on 03/23/22, which was his first visit to heme clinic. His thrombocytopenia deemed from medications including amiodarone, torsemide and possibly metoprolol. His CBC was 95 with improvement from 25.He did not receive any specific treatment for thrombocytopenia during the interval. He has felt stable during the interval, he has no fever, chill, SOB, cough, chest pain, abdominal pain. LE edema is stable though his weight is increasing slightly. REVIEW OF SYSTEMS Constitutional --Energy level: good --Pain: none --Fevers/chills/sweats: No --Unexpected weight loss or gain: No Eyes - No change in vision Ears, nose, throat - No change hearing, no oral or throat pain or thrush Cardiovascular --SOB: No -- Palpitations: No --chest pain: No Respiratory --Cough: No --SOB, LOAIZA: No Gastrointestinal --Appetite: good --Nausea/vomiting: No - Diarrhea/constipation: No - Abd pain: No Genitourinary --Dysuria or hematuria: No Musculoskeletal --Muscle pain or weakness: No --Joint pain or swelling: No Immune System --Recent infections: No Hematology/Lymph --Bruising/bleeding/melena: No --Enlarged nodes or other masses: No Skin --Rashes or petechiae: No Neuro - No Psych: -Anxiety, depressed mood, suicidal or homicidal ideation : No Other ROS: All negative PROBLEM LIST Patient Active Problem List Diagnosis ??? Drug-induced ITP ??? JEEVAN on CPAP ??? Acute systolic heart failure Overview Note: HF w/ reduced EF ??? Macrocytic anemia ??? Atrial fibrillation ??? Status post ablation of atrial flutter 01/02/2022 ??? Type 2 diabetes mellitus PAST SURGICAL Hx: No past surgical history on file. MEDICATIONS ??? UNABLE TO FIND ??? melatonin 1 mg Tablet ??? insulin needles, disposable, 29 gauge x 1/2 Needle ??? UNABLE TO FIND ??? metoprolol succinate XL (Toprol-XL) 100 mg Tablet Sustained Release 24 hr ??? digoxin (Lanoxin) 125 mcg (0.125 mg) Tablet ??? rivaroxaban (Xarelto) 20 mg Tablet ??? zolpidem (Ambien) 5 mg Tablet ??? omega-3 acid ethyl esters (Lovaza) 1 gram Capsule ??? insulin detemir U-100 (Levemir) 100 unit/mL (3 mL) Insulin Pen ??? lactobacillus rhamnosus, GG, (CULTURELLE) 10 billion cell Capsule ??? glimepiride (AMARYL) 4 mg Tablet ??? metFORMIN (GLUCOPHAGE) 1,000 mg Tablet ??? pravastatin (Pravachol) 20 mg Tablet ??? multivitamin (THERAGRAN) Tablet ??? potassium citrate SR (Urocit) 10 mEq (1,080 mg) Tablet Sustained Release ??? omeprazole (PriLOSEC) 20 mg Capsule, Delayed Release(E.C.) ??? sildenafiL (VIAGRA) 50 mg Tablet ??? SIMETHICONE ORAL ??? Psyllium Seed-Sucrose (0) Powder ??? UNABLE TO FIND ALLERGIES/ADR Allergies Allergen Reactions ??? Sulfone Other (See Comments) Thrombocytopenia- history of drug induced ITP with amiodarone vs torsemide vs other PERSONAL and SOCIAL HISTORY History Substance Use Topics ??? Smoking status: Not on file ??? Smokeless tobacco: Not on file ??? Alcohol Use: Not on file ?? Lives with his ?? Work history: ?? ETOH: Does not drink ?? Smoking: Does not smoke FAMILY HISTORY Family history is positive for diabetes mellitus. Father had a history of lung cancer PHYSICAL EXAM VITAL SIGNS: Blood pressure 118/66, pulse 92, temperature 36.6 ??C (97.9 ??F), temperature source Temporal, resp. rate 20, height 173 cm (5' 8.11), weight 109 kg (240 lb 4.8 oz), SpO2 98 %. ECOG PS: 0 GENERAL: Wilber Shell is a well-appearing 72 y.o. male in no acute distress. HEENT: Eyes: b/l PERRL, no conjunctival pallor , no scleral icterus; Sinuses: non-tender; Oropharynx : moist , clear, No lesions, No thrush. ENDOCRINE: No thyromegaly palpated. CARDIOVASCULAR: Heart with regular rate and rhythm without S3,S4 or murmurs. PULMONARY: Lungs are clear to auscultation without rales, rhonchi or wheezing. GASTROINTESTINAL: Abdomen soft and non-tender without palpable masses or hepatosplenomegaly. MUSCULOSKELETAL: Neck supple with full ROM. No spine or CVA tenderness. SKIN: No rashes, bruises or petechiae. LYMPH: No abnormal lymphadenopathy. NEUROLOGICAL: Alert and oriented to person, place and time; No focal neurological deficits; EXT: No peripheral edema. PSYCHIATRIC: normal affect and mood LABORATORY Recent Results (from the past 72 hour(s)) Hemogram Result Value Ref Range WBC 10.6 (H) 4.0 - 9.5 x10(3)/mcL RBC 4.56 (L) 4.58 - 5.54 x10(6)/mcL Hemoglobin 13.9 13.7 - 16.5 g/dL Hematocrit 42.0 40.5 - 48.5 % MCV 92.1 82.9 - 93.1 fL MCH 30.5 27.5 - 32.1 pg MCHC 33.1 32.0 - 35.7 g/dL Platelets 184 145 - 357 x10(3)/mcL RDWSD 50.1 (H) 36.0 - 45.0 fL RDWCV 14.8 (H) 11.4 - 13.8 % MPV 11.0 7.6 - 12.9 fL nRBC % Auto 0.0 % nRBC Abs Auto 0.000 0.000 - 0.000 x10(3)/mcL Differential, Automated Result Value Ref Range Neutrophils % 66.5 % Neutr Abs (ANC) 7.04 (H) 1.70 - 6.10 x10(3)/mcL Lymphocytes % 20.2 % Lymphocytes Abs 2.1 0.9 - 3.2 x10(3)/mcL Monocytes % 9.5 % Monocyte Abs 1.0 (H) 0.3 - 0.9 x10(3)/mcL Eosinophils % 2.5 % Eosinophils Abs 0.3 0.0 - 0.4 x10(3)/mcL Basophils % 0.8 % Basophils Abs 0.1 0.0 - 0.1 x10(3)/mcL Immature Gran % 0.50 % Nini Gran Abs 0.05 (H) 0.00 - 0.04 x10(3)/mcL RADIOLOGY - None ASSESSMENT & PLANS Wilber Shell is a 72 y.o. 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 He has a history of atrial flutter s/p ablation and DCCV in 12/2021 on Xarelto, history of DM, GERD, JEEVAN on CPAP. Hewas found to have thrombocytopenia with a platelet count of as well as 17. He was thought to have drug-induced ITP. Amiodarone and torsemide were considered to be the culprit. Amiodarone has shown to have ITP in less than 1% of the cases. Torsemide has 1 to 10% of the cases with ITP. Metoprolol was another new drug that was started however it is less likely that metoprololwas the culprit as he is still on metoprolol and his periods are recovering. He also received second COVID booster with Moderna on 01/23/2022. Moderna and Pfizer vaccines have shown to cause ITP and it is entirely possible that his ITP was triggered by Moderna vaccine. He is status post 2 doses of IVIG and 4 doses of daily 40 mg of dexamethasone. He has no concerning signs or symptoms of hematological malignancy. Clinically he is recovering well. He has no type B symptoms. Today I repeated his CBC and CMP. His platelet count is 184,000. His rest of the labs and CMP are unremarkable. He does not need any further intervention or therapy at this time. He will continue to follow with PCP. Should he have further decrease in his platelet count especially under 50,000, we can be involved again. He will also need close monitoring following next COVID booster as ITP can be retriggered following the vaccination readministration. Will recommend to checkCBC 2 weeks after future COVID booster administration. I reviewed my impression and recommendations with Wilber Shell and answered all the questions.. Pt was instructed to call our clinic with any new symptom or any questions. Thank you Damian Lovelace for asking us to see this very pleasant patient. Please don't hesitate to contact me if you'd like to discuss this patient's situation further. Total time spent : 40 minutes including the time spent face to face with the patient, reviewing medical records and documenting patient care, coordinating care etc.. Patient seen and discussed with Dr. Musa. Josh Medina MD [facility] Hematology Oncology Fellow Page [phone] HEMATOLOGY/BMT STAFF PROGRESS NOTE I interviewed, examined and reviewed data on Wilber Shell on 03/23/22. I agree with Dr. Garcia's findings, assessment and plans as listed in his note. Linden's plt count has significantly improvedfrom a santiago of 27 to now 95 - well within the safe range. It isn't entirely clear what caused his count to fall but as has been previously discussed, a medication effect seems most likely. Porfirio Musa MD Section of Hematology [facility] CC: LAUREN Hamilton [place] documented in this encounter Plan of Treatment Upcoming Encounters Date Type Department Care Team (Late st Contact Info) Description 12/23/2024 3:30 PM EDT Office Visit Cardiology at [address] [phone] Carlos Eduardo Quan, ALISON [facility] [place] [address] documented as of this encounter Results * CRP, acute inflammation (04/27/2022 1:52 PM EDT) C-Reactive Protein 3.9 <=4.9 mg/L [facility] Blood 04/27/2022 1:52 PM EDT 04/27/2022 1:55 PM EDT Narrative Resulting Agency Comment Spec In Lab Porfirio Musa MD CHEMISTRY ORDERA BLES Performing Organization Address City/[facility]/ZIP Co de Phone Number [facility] [place] [address] * Sedimentation rate (04/27/2022 1:52 PM EDT) Sedimentation Rate Automated 14 3 - 46 mm/hr [facility] Comment: Effective August 12, 2019 new capillary photometric technology has resulted in a change in reference ranges. It is recommended that each ESR result be reviewed with its own age appropriate reference range. Blood 04/27/2022 1:52 PM EDT 04/27/2022 1:56 PM EDT Narrative Resulting Agency Comment Spec In Lab Porfirio Musa MD HEMATOLOGY ORDER PRESTON Performing Organization Address [facility] Co de Phone Number [facility] [place] [address] * Folate, serum (04/27/2022 1:52 PM EDT) Folate >20.0 4.8 - 24.2 ng/mL [facility] Blood 04/27/2022 1:52 PM EDT 04/27/2022 1:56 PM EDT Narrative Resulting Agency Comment Spec In Lab Porfirio Musa MD CHEMISTRY ORDERA BLES Performing Organization Address City/[facility]/ZIP Co de Phone Number [facility] [place] [address] * Vitamin B12 (04/27/2022 1:52 PM EDT) Vitamin B12 469 232 - 1,245 pg/mL [facility] Blood 04/27/2022 1:52 PM EDT 04/27/2022 1:56 PM EDT Narrative Resulting Agency Comment Spec In Lab Porfirio Musa MD CHEMISTRY ORDERA BLES Performing Organization Address City/[facility]/ZIP Co de Phone Number [facility] [place] [address] * (ABNORMAL) Comprehensive metabolic panel (non-fasting) (04/27/2022 1:52 PM EDT) Glucose 201(H) 65 - 199 mg/dL [facility] Comment:Diabetes: >=200 mg/d L plus symptoms Blood Urea Nitrogen 18 10 - 20 mg/dL [facility] Creatinine 0.85 0.80 - 1.50 mg/dL [facility] Sodium 141 135 - 145 mmol/L [facility] Potassium 4.2 3.5 - 5.0 mmol/L [facility] Comment: Please note: ??Patients with WBC >100,000 may have falsely elevated Potassium levels. ??For accurate Potassium quantification in these patients send serum separator tube (gold top) for subsequent determinations. ??Contact the Clinical Chemistry Laboratory if there are any questions. Chloride 105 98 - 107 mmol/L [facility] Carbon Dioxide 23 22 - 31 mmol/L [facility] Anion Gap 13 5 - 15 mmol/L [facility] Calcium 9.3 8.5 - 10.5 mg/dL [facility] Protein, Total 6.7 6.1 - 8.0 g/dL [facility] Albumin 4.3 3.2 - 5.2 g/dL [facility] Aspartate Aminotransferase 16 0 - 39 unit/L [facility] Alanine Aminotransferase 17 0 - 55 unit/L [facility] Alkaline Phosphatase 64 40 - 130 unit/L [facility] Bilirubin, Total 1.0 0.2 - 1.3 mg/dL [facility] Est Glomerular Filtration Rate 92 >=60 mL/min/1. 73 m?? [facility] Comment: This patient's estimated GFR was calculated using the 2020 CKD-EPI equation. The estimated GFR can vary from the measured GFR by up to 30% in the absence of rapidly changing kidney function. Assessment of the estimated GFR is not appropriate when creatinine concentrations are rapidly changing. For clinical situations in which a more precise estimate of GFR is necessary, consider alternative methods of GFR estimation such as a 24-hour urine creatinine clearance. Assignment of CKD stage 1-5 for patients with an eGFR near the transition point between stages may be based on clinical assessment of muscle mass and symptoms in addition to eGFR. Blood 04/27/2022 1:52 PM EDT 04/27/2022 1:55 PM EDT Narrative Resulting Agency Comment Spec In Lab Porfirio Musa MD CHEMISTRY ORDERA BLES [facility] [place] [address] documented in this encounter Visit Diagnoses Diagnosis Drug-induced ITP- Primary Other secondary thrombocytopenia documented in this encounter Care Teams Laboratory Veterinarian Relationship Specialty Start Date End Date Domenica Atkins APRN PCP - General Family Medicine 11/21/21 documented as of this encounter
--- OUTSIDE RECORDS SUMMARY | 2024-06-11 18:08 | XMS_ITS | Encounter Summary ---
Author Organization [facility] Address [facility] [place] [address] Care Team Providers Care Senior Product Development Engineer Name Role Phone Milly Domenica Dayron AGUILAR Primary Care Provider [phone] Encounter Details Date Type Department Care Team (Late st Contact Info) Description 04/12/2022 10:00 AM EDT Office Visit Cardiology at [address] [phone] Orlin Trujillo MD [facility] [place] [address] Congestive heart failure, unspecified HF chronicity, unspecified heart failure type (Primary Dx); Chronic atrial fibrillation; Typical atrial flutter; Drug-induced ITP; Persistent atrial fibrillation Social History Tobacco Use [...] place to sleep or slept in a halfway (including now)? No 03/23/2022 Sex and Gender Information Value Date Recorded Sex Assigned at Not on file Gender Identity Not on file Sexual Orientation Not on file documented as of this encounter Last Filed Vital Signs Vital Sign Reading Time Taken Comments Blood Pressure 121/64 04/12/2022 10:45 AM EDT Pulse 94 04/12/2022 10:45 AM EDT Temperature - - Respiratory Rate - - Oxygen Saturation 98% 04/12/2022 10: 45 AM EDT Inhaled Oxygen Concentration - - Weight 108.8 kg (239 lb 12.8 oz) 2021 10:45 AM EDT Height 177.8 cm (5' 10) 04/12/2022 10: 45 AM EDT Body Mass Index 34.41 04/12/2022 10:45 AM EDT documented in this encounter Progress Notes * Orlin Trujillo MD - 04/12/2022 10:00 AM EDT Images from the original note were not included. [facility] [place] [phone] CARDIOLOGY OUTPATIENT CLINIC VISIT [facility] Wilber Shell 04/12/2022 Referring Providers: Domenica Atkins, Domenica Snowden APRN [address] [place] [id number] CHIEF COMPLAINT: Follow up of Afib CARDIAC-RELEVANT PROBLEM LIST: 1. Atrial flutter, s/p ablation of atrial flutter 01/02/2022 2. HFrEF. Echo January 2022 EF 23% with severe global hypokinesis, severe dilated LA, moderate MR and TR.?? 3. Type 2 diabetes mellitus 4. GERD 5. Obstructive sleep apnea, on CPAP 6. Macrocytic anemia 7. Drug-induced ITP 8. Dyslipidemia HISTORY OF PRESENT ILLNESS: Wilber Shell is a 72 y.o. male patient presenting for an outpatient cardiology visit. Wilber Shell??is a 72 y.o.??male??with hx of T2DM HLD, GERD, BPH, Aflutter s/p ablation and DCCV on 01/02/22 recently switched for eliquis ??to xarelto, JEEVAN not on CPAP who was admitted recently for SOB 2/2 afib??and ADHF. EKG showed Afib with RVR with VR 153. CXR showed pulmonary edema.??TTE showed EF 23% with severe global hypokinesis, TV moderately decreased, severe dilated LA, moderate MRand TR.??He received IV lasix 40 mg with good UOP. For Afib, he underwent ablation and DCCV on 01/02 at [facility]. He presented to EP clinic at [facility] on 01/10 were he was found to be in afib. Admission for sotalol load was planned for January but this was reportedly stopped due to him missing a dose of eliquis following his fall. He was recently switched to xarelto for cost. On admission in March 2022, patient was loaded with amiodarone and subsequently converted to NSR while on anticoagulation. He required aggressive diuresis, initially with lasix and torsemide, later being transitioned to Bumex, however this was discontinued once EF had recovered with resolution of his tachycardia. He remained in NSR for several days, however ultimately converted back into afib withRVR. Metop XL was subsequently increased to 200 mg daily and digoxin was loaded. Amiodarone was considered a failed intervention in addition to the fact that it was felt to have caused drug induced ITP and therefore was discontinued. Tachyarrhythmia resolved with digoxin 125 mcg qd and metop 100 mgXL daily. On day of discharge, he was resumed on home Xarelto 20 mg qd. For his thrombocytopenia of 108, HIT was invoked, however his T score was low and he had not received heparin since December, lovenox had been administered though this did not coincide with his thrombocytopenia. Torsemide and amiodarone had been initiated on 03/03 with ongoing residual decline in platelets. Hematology was consulted, they recommended IVIG (03/06, 03/07, and 03/08) and decadron 16 mg daily for four days with stabilization of platelets. He was maintained on intermittent dose lovenox throughoutdue to risk of stroke in light of recent DCCV, given that his platelets were at goal of >40 on day of discharge, he was resumed on home xarelto. Exact source of drug induced ITP remained elusive. Today, he feels well. He brings a BP record showing well controlled BP. His labs from [facility] in show a Hb 13.6 and platelets 83, a slight decline from 101 in hospital. He denies any chest pain and no shortness of breath either. He walks daily 2-3 blocks, he goes to the mall whenhe walks about 1 mile without any difficulty. Echo March 2022 Interpretation Summary Left ventricular systolic function is mildly reduced. The left ventricular ejection fraction is 45%by Mendoza's biplane. Right ventricular systolic function is mildly decreased. There is moderate to severe mitral regurgitation. Compared with the prior SYDNEY of 03/01/2022, LV systolic function has improved. Moderate to severe MR is now noted. ?? Review of systems: Please see the HPI for pertinent positives and negatives. The remainder of the ROS was reviewed and is negative. PAST MEDICAL HISTORY: has a past medical history of Atrial flutter, GERD (gastroesophageal reflux disease), JEEVAN (obstructive sleep apnea), and T2DM (type 2 diabetes mellitus). PAST SURGICAL HISTORY: No past surgical history on file. SOCIAL HISTORY: reports that he has never smoked. He has never used smokeless tobacco. He reports previous alcohol use. He reports that he does not use drugs. FAMILY HISTORY: family history is not on file. MEDICATIONS: Current Outpatient Medications Medication Sig Dispense Refill ??? UNABLE TO FIND Place 80 mg under the tongue 2 times daily. Sinethicone ??? melatonin 1 mg Tablet Take 10 mg by mouth daily. 2 tablets at bedtime ??? insulin needles, disposable, 29 gauge x 1/2 Needle 31 g by [facility].(Non-Drug; Combo Route) route daily. 31Gx1/4 ??? UNABLE TO FIND Take 1 tablet by mouth daily. Probiotics Enzyme tablets ??? UNABLE TO FIND Place 1 % under the tongue daily. Terbinfine Hydroloride ??? metoprolol succinate XL (Toprol-XL) 100 mg Tablet Sustained Release 24 hr Take 1 tablet by mouth daily. 90 tablet 3 ??? digoxin (Lanoxin) 125 mcg (0.125 mg) Tablet Take 1 tablet by mouth daily for 90 days. Indications: ventricular rate control in atrial fibrillation 90 tablet 0 ??? rivaroxaban (Xarelto) 20 mg Tablet Take 1 tablet by mouth daily. 90 tablet 3 ??? zolpidem (Ambien) 5 mg Tablet Take 10 mg by mouth nightly as needed for Sleep. Patient does notknow if he is taking ??? omega-3 acid ethyl esters (Lovaza) 1 gram Capsule Take 2 g by mouth 2 times daily. ??? insulin detemir U-100 (Levemir) 100 unit/mL (3 mL) Insulin Pen Inject 50 Units subcutaneously daily. ??? glimepiride (AMARYL) 4 mg Tablet [...] Release Take 40 mEq by mouth daily. ??? omeprazole (PriLOSEC) 20 mg Capsule, Delayed Release(E.C.) Take 20 mg by mouth daily. ??? sildenafiL (VIAGRA) 50 mg Tablet Take 50 mg by mouth as needed for Erectile Dysfunction. ??? lactobacillus rhamnosus, GG, (CULTURELLE) 10 billion cell Capsule Take 1 capsule by mouth daily. ??? SIMETHICONE ORAL Take by mouth as needed. ??? Psyllium Seed-Sucrose (0) Powder Take by mouth daily. No current facility-administered medications for this visit. ALLERGIES: Reviewed and updated as appropriate in the medical record: Sulfone PHYSICAL EXAMINATION: Vitals: Patient Vitals for the past 24 hrs: Pulse BP SpO2 04/12/22 1045 94 121/64 98 % Constitutional: Normal general appearance, no distress HEENT: PERRL, EOMI; dentition unremarkable Respiratory: CTAB, no wheezes, rales Cardiovascular: Normal S1S2, no murmurs, rubs or gallops Vessels: Normal jugular venous pressure; palpable pulses in all extremities Extremities: No clubbing; no edema Musculoskeletal: No significant kyphosis; no difficulty in ambulating across the room and stepping up to exam table Skin: No cyanosis, no open sores Neurologic: Alert, oriented to person, place and time Psychiatric: Normal mood and affect; no barriers to learning identified TESTING: I have reviewed the pertinent outside records, laboratory data, and imaging studies. 1. LABS: Recent Labs 03/23/22 0906 WBC 10.8* HGB 13.8 HCT 40.8 PLATELET 95* NA 138 K 4.2 BUN 15 CREATININE 0.93 ALT 25 Lab Results Component Value Date CHLPL 96 02/28/2022 HDL 26 02/28/2022 CHOLHDL 3.7 02/28/2022 TRIG 67 02/28/2022 LDLCHOL 57 02/28/2022 ASSESSMENT/PLAN: Wilber Shell is a 72 y.o. male patient presenting for an outpatient cardiology visit for the following cardiovascular conditions: No diagnosis found. Afib with RVR, Tachymyopathy, HFrEF, EF recovery to 45%. He continues to do well. He appears euvolemic today. We will continue metoprolol XL 100 mg daily and digoxin 125 mcg daily and Xarelto 20 mg qd. Diuretics were stopped at discharge. We will check a BMP. No BMP noted on labs at OSH. Atrial Fibrillation well controlled with digoxin and metoprolol 100mg XL. Will see EP for ablation in June time range due to need for amiodarone wash out period. Digoxin levels low at April labs. ?? Thrombocytopenia Unknown culprit for ITP. He is s/p IVIG (03/06, 03/07, and 03/08) and decadron 16 mg daily for four days with stabilization of platelets. He has Heme follow-up.? Type II Diabetes A1c 7.5 % on admission. Sugars well controlled on home regimen. Thank you for the opportunity to take care of Wilber Shell. Sincerely, Dr. Orlin Trujillo MD [facility] Automatic Furnace Operator Interventional Cardiology 04/12/2022 CC: Domenica Atkins APRN documented in this encounter Miscellaneous Notes * Addendum Note - Bridger Duncan - 04/12/2022 10:00 AM EDTAddended by: BRIDGER DUNCAN on: 04/12/2022 11:41 AM Modules accepted: Orders documented in this encounter Plan of Treatment Upcoming Encounters Date Type Department Care Team (Late st Contact Info) Description 12/23/2024 3:30 PM EDT Office Visit Cardiology at [address] [phone] Carlos Eduardo Quan PA [facility] [place] [address] documented as of this encounter Procedures Procedure Name Priority Date/Time Associated Diagnosis Comments HC VENIPUNCTURE Routine 04/12/2022 11:53 AM EDT Chronic atrial fibrillation Congestive heart failure, unspecified HF chronicity, unspecified heart failure type Typical atrial flutter Drug-induced ITP Persistent atrial fibrillation documented in this encounter Results * (ABNORMAL) Basic Metabolic Panel (non-fasting) (04/12/2022 11:53 AM EDT) Glucose 137 65 - 199 mg/dL [facility] Comment:Diabetes: >=200 mg/d L plus symptoms Blood Urea Nitrogen 15 10 - 20 mg/dL [facility] Creatinine 0.71(L) 0.80 - 1.50 mg/dL [facility] Sodium 142 135 - 145 mmol/L [facility] Potassium 4.4 3.5 - 5.0 mmol/L [facility] Comment: Please note: ??Patients with WBC >100,000 may have falsely elevated Potassium levels. ??For accurate Potassium quantification in these patients send serum separator tube (gold top) for subsequent determinations. ??Contact the Clinical Chemistry Laboratory if there are any questions. Chloride 106 98 - 107 mmol/L [facility] Carbon Dioxide 25 22 - 31 mmol/L [facility] Anion Gap 11 5 - 15 mmol/L [facility] Calcium 9.4 8.5 - 10.5 mg/dL [facility] Est Glomerular Filtration Rate 97 >=60 mL/min/1. 73 m?? [facility] Comment: This patient's estimated GFR [...] and symptoms in addition to eGFR. Blood 04/12/2022 11:5 3 AM EDT 04/12/2022 12:00 PM EDT Narrative Resulting Agency Comment Spec In Lab Orlin Trujillo MD CHEMISTRY ORDERABLES [facility] [place] [address] documented in this encounter Visit Diagnoses Diagnosis Congestive heart failure, unspecified HF chronicity, unspecified heart failure type- Primary Chronic atrial fibrillation Atrial fibrillation Typical atrial flutter Atrial flutter Drug-induced ITP Other secondary thrombocytopenia Persistent atrial fibrillation Atrial fibrillation documented in this encounter Care Teams Senior Product Development Engineer Relationship Specialty Start Date End Date Domenica Atkins, BAR ROLLER PCP - General Family Medicine 11/21/21 documented as of this encounter
--- OUTSIDE RECORDS SUMMARY | 2024-06-11 18:08 | XMS_ITS | Encounter Summary ---
Author Organization [facility] [place] [address] Care Team Providers Care Granite Cutter Apprentice Name Role Phone Milly Domenica Dayron AGUILAR Primary Care Provider [phone] Reason for Visit * Auth/Cert (Routine) Specialty Diagnoses / Procedures Referred By Contpedrito t Referred To Contact Diagnoses Persistent atrial fibrillation PERSISTENT AFIB Michael Barrios MD [facility] [place] [address] [place] [address] [facility] Referral ID Status Reason Start Date Expiration Date Visits Re quested Visits Authorized [id number] 1 1 Encounter Details Date Type Department Care Team (Late st Contact Info) Description 08/28/2022 11:30 AM EST Office Visit Cardiology at [address] [phone] Brandon Mohr PA [facility] [place] [address] Persistent atrial fibrillation Social History Tobacco Use [...] place to sleep or slept in a half-way (including now)? No 03/23/2022 Sex and Gender Information Value Date Recorded Sex Assigned at Not on file Gender Identity Not on file Sexual Orientation Not on file documented as of this encounter Last Filed Vital Signs Vital Sign Reading Time Taken Comments Blood Pressure 124/75 08/28/2022 11:02 AM EST Pulse 76 08/28/2022 11:02 AM EST Temperature - - Respiratory Rate - - Oxygen Saturation 100% 08/28/2022 11:02 AM EST Inhaled Oxygen Concentration - - Weight 111.1 kg (245 lb) 08/28/2022 11:02 AM EST Height 172.7 cm (5' 8) 08/28/2022 11:02 AM EST Body Mass Index 37.25 08/28/2022 11:02 AM EST documented in this encounter Progress Notes * Brandon Mohr PA - 08/28/2022 11:30 AM EST Cardiac Electrophysiology - Pre-admission Evaluation for Antiarrythmic Drug Initiation Patient ID: Wilber Shell is a 72 y.o. male. HPI 72yo man with PAF, now persistent, patient of Dr. Arredondo, admission presents for admission for dofetilide initiation. He underwent DC cardioversion at [place] on July 19, 2022 with ERAF within minutes. He is rate controlled with digoxin and metoprolol and anticoagulated with Xarelto. Patient Active Problem List Diagnosis ??? Drug-induced ITP ??? JEEVAN on CPAP ??? Acute systolic heart failure Overview Note: HF w/ reduced EF ??? Macrocytic anemia ??? Atrial fibrillation ??? Status post ablation of atrial flutter 01/02/2022 ??? Type 2 diabetes mellitus Review of Systems Constitutional: Positive for fatigue. Negative for chills and diaphoresis. Respiratory: Positive for shortness of breath. Cardiovascular: Negative for chest pain, palpitations and leg swelling. Neurological: Negative for syncope and light-headedness. Social History Tobacco Use ??? Smoking status: Never ??? Smokeless tobacco: Never Vaping Use ??? Vaping Use: Never used Substance Use Topics ??? Alcohol use: Not Currently ??? Drug use: Never Current Outpatient Medications Medication Sig Dispense Refill ??? terbinafine HCL (LamISIL) 1 % Cream Apply topically as needed. ??? insulin needles, disposable, 29 gauge x 1/2 Needle 31 g by [facility].(Non-Drug; Combo Route) route daily. 31Gx1/4 ??? metoprolol succinate XL (Toprol-XL) 100 mg Tablet Sustained Release 24 hr Take 1 tablet by mouth daily. 90 tablet 3 ??? rivaroxaban (Xarelto) 20 mg Tablet Take 1 tablet by mouth daily. 90 tablet 3 ??? omega-3 acid ethyl esters (Lovaza) 1 gram Capsule Take 2 g by mouth 2 times daily. ??? insulin detemir U-100 (Levemir) 100 unit/mL (3 mL) Insulin Pen Inject 30 Units subcutaneously 2times daily. ??? lactobacillus rhamnosus, GG, (CULTURELLE) 10 billion cell Capsule Take 1 capsule by mouth daily. ??? glimepiride (AMARYL) 4 mg Tablet Take 4 mg by mouth 2 times daily. ??? pravastatin (Pravachol) 20 mg Tablet Take 20 mg by mouth 2 times daily. ??? multivitamin (THERAGRAN) Tablet Take 1 tablet by mouth daily. ??? potassium citrate SR (Urocit) 10 mEq (1,080 mg) Tablet Sustained Release Take 40 mEq by mouth daily. ??? omeprazole (PriLOSEC) 20 mg Capsule, Delayed Release(E.C.) Take 20 mg by mouth daily. ??? SIMETHICONE ORAL Take by mouth as needed. ??? Psyllium Seed-Sucrose (0) Powder Take by mouth daily. ??? digoxin (Lanoxin) 125 mcg (0.125 mg) Tablet Take 125 mcg by mouth daily. ??? metFORMIN (GLUCOPHAGE) 1,000 mg Tablet Take 1,000 mg by mouth 2 times daily (with meals). ??? sildenafiL (VIAGRA) 50 mg Tablet Take 50 mg by mouth as needed for Erectile Dysfunction. Physical Exam Vitals and nursing note reviewed. Constitutional: Appearance: Normal appearance. Cardiovascular: Rate and Rhythm: Normal rate. Rhythm irregular. Pulses: Normal pulses. Heart sounds: Normal heart sounds. Pulmonary: Effort: Pulmonary effort is normal. Breath sounds: Normal breath sounds. Musculoskeletal: General: Normal range of motion. Skin: General: Skin is warm and dry. Neurological: General: No focal deficit present. Mental Status: He is alert and oriented to person, place, and time. 12 lead EK08/28/2022 Atrial fibrillation @ 80; QRS 80; QTc 461ms Echocardiogram: 03/02/2022 Left ventricular systolic function is mildly reduced. The left ventricular ejection fraction is 45% by Mendoza's biplane. Right ventricular systolic function is mildly decreased. There is moderate to severe mitral regurgitation. Compared with the prior SYDNEY of 03/01/2022, LV systolic function has improved. Moderate to severe MR is now noted. Labs: Latest Reference Range & Units 08/28/22 10:37 Sodium 135 - 145 mmol/L 140 Potassium 3.5 - 5.0 mmol/L 5.2 (H) Chloride 98 - 107 mmol/L 104 CO2 22 - 31 mmol/L 28 Anion Gap 5 - 15 mmol/L 8 BUN 10 - 20 mg/dL 19 Creatinine 0.80 - 1.50 mg/dL 1.03 Estimated GFR >=60 mL/min/1.73 m?? 77 Calcium 8.5 - 10.5 mg/dL 9.9 Magnesium 0.69 - 1.07 mmol/L 0.84 Glucose Lvl 65 - 199 mg/dL 274 (H) (H): Data is abnormally high Assessment and Plan 72yo man with persistent atrial fibrillation, recurrent after cardioversion on July 19, 2022,with ERAF, presents for pre-admission evaluation for planned AAD initiation. Renal function is normal(1.03), serum potassium is 5.2 and magnesium is 0.84. QTc in atrial fibrillation is acceptable at 460ms. Plan: Admit to ICCU with continuous telemetry Patient escorted to admissions office to await bed placement Provider: ALISON Wagoner EP Consult attending physician: Gwen Barrios MD documented in this encounter Plan of Treatment Upcoming Encounters Date Type Department Care Team (Late st Contact Info) Description 12/23/2024 3:30 PM EDT Office Visit Cardiology at [address] [place] [address] Carlos Eduardo Quan PA [facility] [place] [address] documented as of this encounter Procedures Procedure Name Priority Date/Time Associated Diagnosis Comments EKG 12-LEAD Routine 08/28/2022 11:18 AM EST Persistent atrial fibrillation documented in this encounter Results * EKG 12 Lead (08/28/2022 11:18 AM EST) Ventricular rate 80 BPM MUSE SYSTEM QRS Duration 88 ms MUSE SYSTEM Q-T Interval 400 ms MUSE SYSTEM QTC Calculated (Bezet) 461 ms MUSE SYSTEM Calculated R [place] -15 degrees MUSE SYSTEM Calculated T [place] -8 degrees MUSE SYSTEM INTERPRETATION Atrial fibrillation with premature ventricular or aberrantly conducted complexes Inferior infarct (cited on or before 10-JAN-2022) Abnormal ECG When compared with ECG of 11-JUL-2022 14:11, No significant change was found Confirmed by Md Xavier Katharine ([place]) on 08/29/2022 7:55:40 AM MUSE SYSTEM 08/28/2022 11:1 8 AM EST 08/29/2022 7:55 AM EST Connor Charles MD ECG ORDERABLES [employer] documented in this encounter Visit Diagnoses Diagnosis Persistent atrial fibrillation Atrial fibrillation documented in this encounter Care Teams Granite Cutter Apprentice Relationship Specialty Start Date End Date Domenica Atkins, LAUREN PCP - General Family Medicine 11/21/21 documented as of this encounter
--- OUTSIDE RECORDS SUMMARY | 2024-06-11 18:08 | XMS_ITS | Encounter Summary ---
Author Organization [facility] Address [facility] [place] [address] Care Team Providers Care Bearing Maker Name Role Phone Milly Domenica Dayron AGUILAR Primary Care Provider [phone] Encounter Details Date Type Department Care Team (Latest Contact Info) Description 10/02/2022 11:00 AM EST Office Visit Cardiology at [address] [phone] Ryder Arredondo MD [facility] [place] [address] Persistent atrial fibrillation; Dilated cardiomyopathy; Thrombocytopenia; jail current use of antiarrhythmic drug Social History [...] place to sleep or slept in a intermediate (including now)? No 03/23/2022 Sex and Gender Information Value Date Recorded Sex Assigned at Not on file Gender Identity Not on file Sexual Orientation Not on file documented as of this encounter Last Filed Vital Signs Vital Sign Reading Time Taken Comments Blood Pressure 146/73 10/02/2022 10:59 AM EST Pulse 65 10/02/2022 10:59 AM EST Temperature - - Respiratory Rate - - Oxygen Saturation 99% 10/02/2022 10:59 AM EST Inhaled Oxygen Concentration - - Weight 113.4 kg (250 lb) 10/02/2022 10:59 AM EST Height 172.7 cm (5' 7.99) 10/02/2022 10:[address] Body Mass Index 38.02 10/02/2022 10:59 AM EST documented in this encounter Progress Notes * Ryder Arredondo MD - 10/02/2022 11:00 AM EST Images from the original note were not included. Section of Cardiology/Cardiac Electrophysiology Clinical Cardiac Electrophysiology Follow Up Patient ID Wilber Shell 1950 [id number] Wilber Shell is following up in EP clinic Chief Complaint Fatigue, cardiomyopathy, atrial arrhythmias History This is a 72 y.o. male following up/being seen in clinic for atrial arrhythmias - he was last seen in the EP clinic by myself in July of last year. From that visit '..he was recently an inpatientfor EPS - he was found to have a tyepical atrial flutter (which was ablated) but also substrate foratypical atrial flutter and atrial fibrillation. He did well for a few days after the procedure - no issues with access sites, but a few days later,he developed some dyspnea and fatigue. When he was seen in follow up at the EP clinic in [place],he was in AF/RVR - plans were made [...] failure management and on rate control...' In April of this year, he was seen in the Cardiology clinic in follow up of his atrial fibrillation and was on amiodarone and anticoagulated with Xarelto. An LVEF of 45% was measured by echo in Marchof this year. Moderate to severe TR was noted, even though his LV function had interval improvement; this was suggestive of a tachy-myopathy'.. In August of last year he was admitted for a dofetilide load, but his QTc became markedly prolonged, so he was switched to amiodarone. Since starting the amiodarone, he feels well. He has had a couple of episodes of arrhythmias that have occurred since that admission - he was minimally aware. No bleeding issues that are new. He can climb one flight of stairs; can walk on the flat. No chest pain, no lightheadedness. Problem List Patient Active Problem List Diagnosis ??? Chronic systolic heart failure ??? Persistent atrial fibrillation Trial of dofetilide - QTc prolonged to >550ms after second dose; discontinued ??? Drug-induced ITP ??? JEEVAN on CPAP ??? Macrocytic anemia ??? Atrial fibrillation ??? Status post ablation of atrial flutter 01/02/2022 ??? Type 2 diabetes mellitus Review of Systems Review of Systems Constitutional: Positive for malaise/fatigue. Negative for night sweats. Cardiovascular: Positive for dyspnea on exertion. Meds Current Outpatient Medications Medication Sig Dispense Refill ??? metFORMIN (Glucophage) 1,000 mg Tablet Take 1 tablet by mouth 2 times daily (with meals). 60 tablet ??? AMIOdarone (Paceron) 200 mg Tablet Take 1 tablet by mouth 2 times daily. FOR FOURTEEN DAYS, then reduce to 200mg once daily thereafter 45 tablet 1 ??? terbinafine HCL (LamISIL) 1 % Cream Apply topically as needed. ??? insulin needles, disposable, 29 gauge x 1/2 Needle 31 g by [facility]Non-Drug; Combo Route) route daily. 31Gx1/4 ??? metoprolol [...] None Tobacco Use ??? Smoking status: Never ??? Smokeless tobacco: Never Vaping Use ??? Vaping Use: Never used Substance and Sexual Activity ??? Alcohol use: Not Currently ??? Drug use: Never ??? Sexual activity: Not Currently Other Topics Concern ??? None Social History Narrative ??? None Social Determinants of Health Financial Resource Strain: Low Risk ??? Difficulty of Paying Living Expenses: Not hard at all Food Insecurity: Unknown ??? Worried About Running Out of Food in the Last Year: Never true ??? Ran Out of Food in the Last Year: Not on file Transportation Needs: No Transportation Needs ??? Lack of Transportation (Medical): No ??? Lack of Transportation (Non-Medical): No Physical Activity: Not on file Housing Stability: Low Risk ??? Unable to Pay for Housing in the Last Year: No ??? Number of Places Lived in the Last Year: 1 ??? Unstable Housing in the Last Year: No Family History No family history on file. Exam Patient Vitals for the past 24 hrs: Pulse BP SpO2 10/02/22 1059 65 146/73 99 % Physical Exam Constitutional: Comments: Body mass index is 38.02 kg/m??. HENT: Mouth/Throat: Pharynx: No oropharyngeal exudate. Cardiovascular: Rate and Rhythm: Normal rate. Rhythm irregular. Pulses: Normal pulses. Pulmonary: Effort: Pulmonary effort is normal. Skin: General: Skin is warm. Neurological: General: No focal deficit present. Mental Status: He is alert. I have personally reviewed the ECG: Sinus rhythm 61 bpm, LA 180ms, QRS 80ms, QT 440ms Impression Wilber Shell is seen in the EP clinic for follow up after a recent EPS/ablation procedure. Hewas found to have an atypical atrial flutter at initial presentation, but a more typical right atrial counterclockwise (isthmus dependent) was ultimately found and ablated. 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 There was a plan for dofetilide load for his atrial arrhythmias, but he ended up with QT prolongation and was switched to amiodarone. This appears to be working well for him, and he is down to 200 mgdaily, with little in the way of symptoms. Exercise capacity is good. We discussed the treatment of atrial fibrillation with medical therapy, antiarrhythmics and ablation. We discussed that there was some risk given his history of ITP, but anticoagulation management during ablation will be complicated. I am also little concerned that in the past, he has been consideredto have possible ITP induced by amiodarone, so I ordered a CBC today. I will reach out to his hematology team, for guidance about anticoagulation should we elect to proceed with left atrial ablation.For now he is quite happy with the amiodarone approach. He will need surveillance screening labs. Recommendations / Plan A) Okay to continue with amiodarone for now (I will order CBC to look for platelets, TSH, LFTs) B) Contingency for decreasing amiodarone (or possibly discontinuing if there is worsening thrombocytopenia) - might be possible to consider Multaq C) I will reach out to hematology to see about anticoagulation strategies, should we have to proceed to left atrial ablation. D) Repeat echocardiogram to evaluate LV function RYDER ARREDONDO MD Cardiac Electrophysiology [facility] [place] T: [phone] F: [phone] minutes of this 30 minute encounter were spent preparing to see the patient (e.g. review of tests), obtaining and/or reviewing separately obtained history, performing a medically appropriate examination and/or evaluation, counseling and educating the patient, ordering medications, tests, or procedures, documenting clinical information in the electronic, independently interpreting results Cc: Domenica Atknis, DISBURSING OFFICER Recent Results (from the past 24 hour(s)) TSH Result Value Ref Range TSH 5.13 (H) 0.27 - 4.20 mcIU/mL Hepatic Function Panel Result Value Ref Range Total Protein 6.6 6.1 - 8.0 g/dL Albumin 4.2 3.2 - 5.2 g/dL AST 18 0 - 39 unit/L ALT 17 0 - 55 unit/L Alk Phos 63 40 - 130 unit/L Total Bilirubin 0.6 0.2 - 1.3 mg/dL Bili, Direct <0.2 0.0 - 0.3 mg/dL Basic Metabolic Panel (non-fasting) Result Value Ref Range Glucose Lvl 146 65 - 199 mg/dL BUN 23 (H) 10 - 20 mg/dL Creatinine 0.82 0.80 - 1.50 mg/dL Sodium 140 135 - 145 mmol/L Potassium 4.3 3.5 - 5.0 mmol/L Chloride 103 98 - 107 mmol/L CO2 26 22 - 31 mmol/L Anion Gap 11 5 - 15 mmol/L Calcium 9.6 8.5 - 10.5 mg/dL Estimated GFR 93 >=60 mL/min/1.73 m?? Hemogram Result Value Ref Range WBC 12.3 (H) 4.0 - 9.5 x10(3)/mcL RBC 4.80 4.58 - 5.54 x10(6)/mcL Hemoglobin 15.1 13.7 - 16.5 g/dL Hematocrit 44.0 40.5 - 48.5 % MCV 91.7 82.9 - 93.1 fL MCH 31.5 27.5 - 32.1 pg MCHC 34.3 32.0 - 35.7 g/dL Platelets 208 145 - 357 x10(3)/mcL RDWSD 46.0 (H) 36.0 - 45.0 fL RDWCV 13.5 11.4 - 13.8 % MPV 10.4 7.6 - 12.9 fL nRBC % Auto 0.0 % nRBC Abs Auto 0.000 0.000 - 0.000 x10(3)/mcL Differential, Automated Result Value Ref Range Neutrophils % 69.4 % Neutr Abs (ANC) 8.53 (H) 1.70 - 6.10 x10(3)/mcL Lymphocytes % 18.5 % Lymphocytes Abs 2.3 0.9 - 3.2 x10(3)/mcL Monocytes % 9.3 % Monocyte Abs 1.2 (H) 0.3 - 0.9 x10(3)/mcL Eosinophils % 1.5 % Eosinophils Abs 0.2 0.0 - 0.4 x10(3)/mcL Basophils % 0.8 % Basophils Abs 0.1 0.0 - 0.1 x10(3)/mcL Immature Gran % 0.50 % Nini Gran Abs 0.06 (H) 0.00 - 0.04 x10(3)/mcL documented in this encounter Plan of Treatment Upcoming Encounters Date Type Department Care Team (Late st Contact Info) Description 12/23/2024 3:30 PM EDT Office Visit Cardiology at [address] [place] [address] Carlos Eduardo Quan, PA [facility] [place] [address] [phone] (work) documented as of this encounter Procedures Procedure Name Priority Date/Time Associated Diagnosis Comments HEMOGRAM Routine 10/02/2022 11:51 AM EST Thrombocytopenia DIFFERENTIAL, AUTOMATED Routine 10/02/2022 11:51 AM EST Thrombocytopenia HC CBC,PLT & AUTO DIFF Routine 10/02/2022 11:51 AM EST Thrombocytopenia HC VENIPUNCTURE Routine 10/02/2022 11:51 AM EST jail current use of antiarrhythmic drug HEPATIC FUNCTION PANEL Routine 10/02/2022 11:51 AM EST manager intermediate current use of antiarrhythmic drug BASIC METABOLIC PANEL Routine 10/02/2022 11:51 AM EST manager intermediate current use of antiarrhythmic drug EKG 12-LEAD Routine 10/02/2022 11:09 AM EST Persistent atrial fibrillation documented in this encounter Results * (ABNORMAL) Differential, Automated (10/02/2022 11:51 AM EST) Neutrophil % 69.4 % [facility] Neutrophil Absolute 8.53(H) 1.70 - 6.10 x10(3)/mc L [facility] Lymph % 18.5 % [facility] Lymphocytes Abs 2.3 0.9 - 3.2 x10(3)/mc L [facility] Monocyte % 9.3 % [facility] Monocyte Abs 1.2(H) 0.3 - 0.9 x10(3)/mc L [facility] Eos % 1.5 % [facility] Eosinophils Abs 0.2 0.0 - 0.4 x10(3)/mc L [facility] Basophil % 0.8 % [facility] Baso Absolute 0.1 0.0 - 0.1 x10(3)/mc L [facility] Immature Gran % 0.50 % [facility] Comment: Immature granulocytes(IG's)percentage and absolute count will include metamyelocytes, myelocytes, and promyelocytes. Blood smears from CBCs yielding IG's will be scanned manually for concordance. If this scan disagrees with the automated IG or if promyelocytes are noted, a manual differential will be performed. Immature Gran Absolute 0.06(H) 0.00 - 0.04 x10(3)/mc L [facility] Blood 10/02/2022 11:5 1 AM EST 10/02/2022 11:58 AM EST Narrative Resulting Agency Comment Spec In Lab Ryder Arredondo MD HEMATOLOGY ORDERABLE S [facility] [place] [address] * (ABNORMAL) Hemogram (10/02/2022 11:51 AM EST) White Blood Cell 12.3(H) 4.0 - 9.5 x10(3)/mc L [facility] Red Blood Cell 4.80 4.58 - 5.54 x10(6)/mc L [facility] Hemoglobin 15.1 13.7 - 16.5 g/dL [facility] Hematocrit 44.0 40.5 - 48.5 % [facility] Mean Cell Volume 91.7 82.9 - 93.1 fL [facility] Mean Cell Hemoglobin 31.5 27.5 - 32.1 pg [facility] Mean Cell Hemoglobin Concentration 34.3 32.0 - 35.7 g/dL [facility] Platelet 208 145 - 357 x10(3)/mc L [facility] RDW Standard Deviation 46.0(H) 36.0 - 45.0 fL [facility] RDW coefficient of variation 13.5 11.4 - 13.8 % [facility] Mean Platelet Volume 10.4 7.6 - 12.9 fL [facility] NRBC% auto 0.0 % [facility] NRBC Absolute 0.000 0.000 - 0.000 x10(3)/mc L [facility] Blood 10/02/2022 11:5 1 AM EST 10/02/2022 11:58 AM EST Narrative Resulting Agency Comment Spec In Lab Ryder Arredondo MD HEMATOLOGY ORDERABLE S Performing Organization Address City/[facility]/ZIP Co de Phone Number [facility] [place] [address] * (ABNORMAL) TSH (10/02/2022 11:51 AM EST) [facility] Thyroid Stimulating Hormone 5.13(H) 0.27 - 4.20 mcIU/mL [facility] Comment: Reference Interval (mcIU/mL): Females: ??First Trimester: 0.23-3.88 ??Second Trimester: 0.22-3.90 ??Third Trimester: 0.44-4.66 Blood 10/02/2022 11:5 1 AM EST 10/02/2022 11:58 AM EST Narrative Resulting Agency Comment Spec In Lab Ryder Arredondo MD CHEMISTRY ORDERABLES Performing Organization Address [facility]/[place] Co de Phone Number [facility] [address] [place] [phone] * Hepatic Function Panel (10/02/2022 11:51 AM EST) [facility] Protein, Total 6.6 6.1 - 8.0 g/dL [facility] Albumin 4.2 3.2 - 5.2 g/dL [facility] Aspartate Aminotransferase 18 0 - 39 unit/L [facility] Alanine Aminotransferase 17 0 - 55 unit/L [facility] Alkaline Phosphatase 63 40 - 130 unit/L [facility] Bilirubin, Total 0.6 0.2 - 1.3 mg/dL [facility] Bilirubin, Direct <0.2 0.0 - 0.3 mg/dL [facility] Blood 10/02/2022 11:5 1 AM EST 10/02/2022 11:58 AM EST Narrative Resulting Agency Comment Spec In Lab Ryder Arredondo MD CHEMISTRY ORDERABLES Performing Organization Address [facility]/[place] Co de Phone Number [facility] [address] [place] [phone] * (ABNORMAL) Basic Metabolic Panel (non-fasting) (10/02/2022 11:51 AM EST) [facility] Glucose 146 65 - 199 mg/dL [facility] Comment:Diabetes: >=200 mg/d L plus symptoms Blood Urea Nitrogen 23(H) 10 - 20 mg/dL [facility] Creatinine 0.82 0.80 - 1.50 mg/dL [facility] Sodium 140 135 - 145 mmol/L [facility] Potassium 4.3 3.5 - 5.0 mmol/L [facility] Comment: Please note: ??Patients with WBC >100,000 may have falsely elevated Potassium levels. ??For accurate Potassium quantification in these patients send serum separator tube (gold top) for subsequent determinations. ??Contact the Clinical Chemistry Laboratory if there are any questions. Chloride 103 98 - 107 mmol/L [facility] Carbon Dioxide 26 22 - 31 mmol/L [facility] Anion Gap 11 5 - 15 mmol/L [facility] Calcium 9.6 8.5 - 10.5 mg/dL [facility] Est Glomerular Filtration Rate 93 >=60 mL/min/1.7 3 m?? [facility] Comment: This patient's estimated GFR was calculated [...] and symptoms in addition to eGFR. Blood 10/02/2022 11:5 1 AM EST 10/02/2022 11:58 AM EST Narrative Resulting Agency Comment Spec In Lab Ryder Arredondo MD CHEMISTRY ORDERABLES [facility] [address] [place] [address] * EKG 12 Lead (10/02/2022 11:09 AM EST) Ventricular rate 61 BPM MUSE SYSTEM Atrial Rate 61 BPM MUSE SYSTEM P-R Interval 178 ms MUSE SYSTEM QRS Duration 86 ms MUSE SYSTEM Q-T Interval 436 ms MUSE SYSTEM QTC Calculated (Bezet) 438 ms MUSE SYSTEM Calculated P [place] 102 degrees MUSE SYSTEM Calculated R [place] -49 degrees MUSE SYSTEM Calculated T [place] 7 degrees MUSE SYSTEM INTERPRETATION Normal sinus rhythm Left axis deviation Possible Inferior infarct (cited on or before 10-JAN-2022) Abnormal ECG No significant change was found I personally reviewed the tracing and edited the fellows interpretation Confirmed by fellow MD Francia, [place] ([id number]) on 10/02/2022 4:18:58 PM Confirmed by MD ALBINO, NABILA ([id number]) on 10/02/2022 8:59:03 PM MUSE SYSTEM 10/02/2022 11:0 9 AM EST 10/02/2022 8:59 PM EST Ryder Arredondo MD ECG ORDERABLES MUSE SYSTEM documented in this encounter Visit Diagnoses Diagnosis Persistent atrial fibrillation Atrial fibrillation Dilated cardiomyopathy Other primary cardiomyopathies Thrombocytopenia Thrombocytopenia, unspecified manager intermediate current use of antiarrhythmic drug documented in this encounter Care Teams Bearing Maker Relationship Specialty Start Date End Date Domenica Atkins APRN PCP - General Family Medicine 11/21/21 documented as of this encounter
--- OUTSIDE RECORDS SUMMARY | 2024-06-11 18:08 | XMS_ITS | Encounter Summary ---
Author Organization [facility] Address [facility] [place] [address] Care Team Providers Care Creative Services Coordinator Name Role Phone Domenica Atkins APRN Primary Care Provider [phone] Encounter Details Date Type Department Care Team (Late st Contact Info) Description 08/01/2022 Telephone Cardiology at [address] [phone] Veronica Centeno APRN [facility] [place] [address] Social History Tobacco Use Types Packs/Day Years [...] place to sleep or slept in a retirement (including now)? No 03/23/2022 Sex and Gender Information Value Date Recorded Sex Assigned at Not on file Gender Identity Not on file Sexual Orientation Not on file documented as of this encounter Miscellaneous Notes * Telephone Encounter - Veronica Centeno APRN - 08/01/2022 2:51 PM EST 08/01/2022 Wilber Shell Consult call Initial Contact Date: 08/01/2022 Initial contact time: 2:51 PM Referring Provider: Porfirio Banda PA Patient Location: [facility] Past Medical History: 1. Atrial flutter, s/p ablation of atrial flutter 01/02/2022 2. HFrEF. Echo January 2022 EF 23% with severe global hypokinesis, severe dilated LA, moderate MR and TR.?? 3. Type 2 diabetes mellitus 4. GERD 5. Obstructive sleep apnea, on CPAP 6. Macrocytic anemia 7. Drug-induced ITP 8. Dyslipidemia ?? Presenting Symptoms per OSH: Recent cardioversion at [place] [facility]. Continues on Digoxin and xarelto. Since his cardioversion he hasn't felt great. He didn't have a good night sleep last night, hardly slept. Possibly some mild chest pressure prior to arrival, / on arrival. Received one sl nitro with complete resolution. Noprior chest pain syndrome. No recurrence of CP since arrival. Currently in afib, rates 60s. No clinical signs of CHF. Pertinent Diagnostic Findings: EKG: afib, no ischemic changes CTA to r/o PE: negative HS trop: negative x 2 bnp 700 Plan: Symptoms have resolved and diagnostics reassuring. OSH provider looking to discharge with expeditedcardiology follow up. I will send our schedulers a message. - above recommendations were based on my discussion with ALISON Duarte; I have not personally interviewed or examined this patient. I encouraged ALISON Duarte to contact us if there is any change in symptoms, decision-making, or further need for guidance in management. Veronica Centeno APRN Cardiovascular Medicine Pager [phone] 08/01/2022 documented in this encounter Plan of Treatment Upcoming Encounters Date Type Department Care Team (Late st Contact Info) Description 12/23/2024 3:30 PM EDT Office Visit Cardiology at [address] [phone] Carlos Eduardo Quan PA [facility] [place] [address] documented as of this encounter Visit Diagnoses Not on filedocumented in this encounter Care Teams Creative Services Coordinator Relationship Specialty Start Date End Date Domenica Atkins APRN PCP - General Family Medicine 11/21/21 documented as of this encounter
--- OUTSIDE RECORDS SUMMARY | 2024-06-11 18:08 | XMS_ITS | Encounter Summary ---
Author Organization [facility] [place] [address] Care Team Providers Care Department Clinician Name Role Phone Domenica Atkins LAUREN Primary Care Provider [phone] Reason for Visit * Reason Comments Atrial Fibrillation Afib/aflutter- s/p a blation Congestive Heart Failure HFrEF Idiopathic Thrombocytopenic Pupura * Consultation (Urgent) - Closed Specialty Diagnoses / Procedures Referred By Contact Referred To Contact Electrophysiology / Cardiology Diagnoses Atrial fibrillation, unspecified type Atrial flutter, unspecified type afib, aflutter Evan Guzman MD [address] [place] [address] [place] [address] [facility] Cardiology [address] [place] [id number] Referral ID Status Reason Start Date Expiration Date V isits Requested Visits Authorized [id number] Closed Consult, Test & Treat 11/21/2021 11/21/2022 6 6 Encounter Details Date Type Department Care Team (Late st Contact Info) Description 07/11/2022 1:40 PM EST Office Visit Cardiology at [address] [address] Ryder Arredondo MD [facility] [place] [address] Persistent atrial fibrillation Social History Tobacco Use [...] place to sleep or slept in a longterm (including now)? No 03/23/2022 Sex and Gender Information Value Date Recorded Sex Assigned at Not on file Gender Identity Not on file Sexual Orientation Not on file documented as of this encounter Progress Notes * Ryder Arredondo MD - 07/11/2022 1:40 PM EST Images from the original note were not included. Section of Cardiology/Cardiac Electrophysiology Clinical Cardiac Electrophysiology Follow Up Patient ID Wilber Shell 1950 [id number] Wilber Shell is following up in EP clinic Chief Complaint Fatigue, cardiomyopathy, atrial arrhythmias History This is a 72 y.o. male following up/being seen in clinic for atrial arrhythmias - he was last seen in the EP clinic by myself in December of this year. He was recently an inpatient for EPS [...] follow up at the EP clinic in [place],he was in AF/RVR - plans were made [...] with heart failure management and on rate control. In April of this year, he was seen in the Cardiology clinic in follow up of his atrial fibrillation and was on amiodarone and anticoagulated with Xarelto. An LVEF of 45% was measured by echo in Marchof this year. Moderate to severe TR was noted, even though his LV function had interval improvement; this was suggestive of a tachy-myopathy He has been a little short of breath since he was discharged from hospital in March - he feels that he has never been back to a stable level of exertion. Weight is stable; no LE edema, no PND. He remains short of breath with moderate exertion. Occasional chest pain. No syncope. Problem List Patient Active Problem List Diagnosis ??? Drug-induced ITP ??? JEEVAN on CPAP ??? Acute systolic heart failure HF w/ reduced EF ??? Macrocytic anemia ??? Atrial fibrillation ??? Status post ablation of atrial flutter 01/02/2022 ??? Type 2 diabetes mellitus Review of Systems Review of Systems Constitutional: Positive for malaise/fatigue. Negative for night sweats. Cardiovascular: Positive for dyspnea on exertion. Meds Current Outpatient Medications Medication Sig Dispense Refill ??? digoxin (Lanoxin) 125 mcg (0.125 mg) Tablet Take 125 mcg by mouth daily. ??? insulin needles, disposable, 29 gauge x 1/2 Needle 31 g by [facility].(Non-Drug; Combo Route) route daily. 31Gx1/4 ??? metoprolol [...] Socioeconomic History ??? Marital status: Spouse name: Not on file ??? Number of children: Not on file ??? Years of education: Not on file ??? Highest education level: Not on file Occupational History ??? Not on file Tobacco Use ??? Smoking status: Never Smoker ??? Smokeless tobacco: Never Used Vaping Use ??? Vaping Use: Never used Substance and Sexual Activity ??? Alcohol use: Not Currently ??? Drug use: Never ??? Sexual activity: Not Currently Other Topics Concern ??? Not on file Social History Narrative ??? Not on file Social Determinants of Health Financial Resource Strain: [...] History No family history on file. Exam No data found. Physical Exam Constitutional: Comments: There is no height or weight on file to calculate BMI. HENT: Mouth/Throat: Pharynx: No oropharyngeal exudate. Cardiovascular: Rate and Rhythm: Normal rate. Rhythm irregular. Pulses: Normal pulses. Pulmonary: Effort: Pulmonary effort is normal. Skin: General: Skin is warm. Neurological: General: No focal deficit present. Mental Status: He is alert. I have personally reviewed the ECG: Atrial fibrillation - 85 bpm, QRS 80ms, Qt 380ms Impression Wilber Shell is seen in the EP clinic for follow up after a recent EPS/ablation procedure. Hewas found to have an atypical atrial flutter at initial presentation, but a more typical right atrial counterclockwise (isthmus dependent) was ultimately found and ablated. 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 He is reasonably compensated today, rate controlled, with no overt heart failure symptoms, but is still short of breath with exertion. From the perspective of atrial fibrillation - we discussed the role of medical therapy (ie. Rate control with beta blockers, calcium channel blockers, digoxin), antiarrhythmic therapy and the role ofablation We discussed the difference between medical therapy, anti-arrhythmic therapy, ablation, cryoblation, RF ablation. Major complications from a first procedure - approximately 6% of patients. ~ 1.5 % risk of tamponade, esophageal injury 0.5%, vagus nerve damage < 1%, phrenic nerve damage < 1%, vascular complications ~ 2%, CVA ~ 1%, Pericarditis ~ 20%, 0.1% 15 % of patients have more frequent AF in the post ablation period 20-40% of patients require repeat atrial fibrillation ablation, but this is generally deferred for over three months after the index procedure I think that we should proceed with cardioversion, with consideration of dofetilide therapy for maintenance of sinus rhythm. His renal function and baseline QT are acceptable. Dofetilide would be preferred over sotalol given his recent LV dysfunction. If admission for dofetilide cannot be done in atimely fashion, then I will arrange for a cardioversion. He tells me that he has not skipped any doses of Xarelto in the last several weeks. Could update his echocardiogram at the time of his inpatient load. Recommendations / Plan A) Needs admission for dofetilide load and cardioversion B) If dofetilide load cannot be completed in a timely fashion, then would perform plain cardioversion C) Contingency remains for consideration of AF ablation, but would need to discuss with hematology from the perspective of anticoagulation for the patel- procedural period RYDER ARREDONDO MD Cardiac Electrophysiology [facility] [place] T: [phone] F: [phone] 30 minutes of this 40 minute encounter were spent preparing to see the patient (e.g. review of tests), obtaining and/or reviewing separately obtained history, performing a medically appropriate examination and/or evaluation, counseling and educating the patient, ordering medications, tests, or procedures, documenting clinical information in the electronic, independently interpreting results Cc: Domenica tAkins APRN documented in this encounter Plan of Treatment Upcoming Encounters Date Type Department Care Team (Late st Contact Info) Description 12/23/2024 3:30 PM EDT Office Visit Cardiology at [address] [place] [phone] Carlos Eduardo Quan PA [facility] [place] [address] documented as of this encounter Visit Diagnoses Diagnosis Persistent atrial fibrillation Atrial fibrillation documented in this encounter Care Teams Department Clinician Relationship Specialty Start Date End Date Domenica Atkins APRN PCP - General Family Medicine 11/21/21 documented as of this encounter
--- OUTSIDE RECORDS SUMMARY | 2024-06-11 18:08 | XMS_ITS | Encounter Summary ---
Author Organization [facility] [place] [address] Care Team Providers Care Mask Design Engineer Name Role Phone Domenica Atkins APRN Primary Care Provider [phone] Encounter Details Date Type Department Care Team (Late st Contact Info) Description 08/01/2022 External [place] [address] Social History Tobacco Use Types Packs/Day Years [...] place to sleep or slept in a alf (including now)? No 03/23/2022 Sex and Gender Information Value Date Recorded Sex Assigned at Not on file Gender Identity Not on file Sexual Orientation Not on file documented as of this encounter Plan of Treatment Upcoming Encounters Date Type Department Care Team (Late st Contact Info) Description 12/23/2024 3:30 PM EDT Office Visit Cardiology at [address] [address] Carlos Eduardo Quan, [facility] [place] [address] documented as of this encounter Procedures Procedure Name Priority Date/Time Associated Diagnosis Comments ECG SCAN Routine 08/01/2022 documented in this encounter Results * Scan Doc: ECG (08/01/2022) Historical Provider MD [facility]HEN MGR SCAN EX T ORDR/RSLT documented in this encounter Visit Diagnoses Not on filedocumented in this encounter Care Teams Mask Design Engineer Relationship Specialty Start Date End Date Domenica Atkins APRN PCP - General Family Medicine 11/21/21 documented as of this encounter
--- OUTSIDE RECORDS SUMMARY | 2024-06-11 18:08 | XMS_ITS | Encounter Summary ---
Author Organization [facility] [place] [address] Care Team Providers Care Printing Pressman Name Role Phone Milly Domenica Padgett APRN Primary Care Provider [phone] Encounter Details Date Type Department Care Team (Late st Contact Info) Description 07/11/2022 Telephone Cardiology at [address] [place] [address] Lalita Cisneros RN Social History Tobacco Use Types Packs/Day Years [...] place to sleep or slept in a penitentiary (including now)? No 03/23/2022 Sex and Gender Information Value Date Recorded Sex Assigned at Not on file Gender Identity Not on file Sexual Orientation Not on file documented as of this encounter Miscellaneous Notes * Telephone Encounter - Lalita Cisneros RN - 07/18/2022 1:59 PM EST Called and reviewed instructions for DCCV tomorrow. Patient verbalized understanding of instructions. Patient confirms that he has not missed or been late with any of his doses of Xarelto. * Telephone Encounter - Lalita Cisneros RN - 07/11/2022 4:11 PM EST Called patient to let him know Cardioversion is scheduled for 07/19/22, arrival time is 8:30, procedure time is 10:00. Patient reports he has not missed or been late with any of his doses ofXarelto for past 4 weeks. We will call him on Saturday07/18/22 to review further instructions. documented in this encounter Plan of Treatment Upcoming Encounters Date Type Department Care Team (Late st Contact Info) Description 12/23/2024 3:30 PM EDT Office Visit Cardiology at [address] [place] [address] Carlos Eduardo Quan, [facility] [place] [address] documented as of this encounter Visit Diagnoses Not on filedocumented in this encounter Care Teams Printing Pressman Relationship Specialty Start Date End Date Domenica Atkins APRN PCP - General Family Medicine 11/21/21 documented as of this encounter
--- OUTSIDE RECORDS SUMMARY | 2024-06-11 18:08 | XMS_ITS | Encounter Summary ---
Author Organization [place] [address] Care Team Providers Care Print Graphic Designer Name Role Phone RayDomenica tate Dayron AGUILAR Primary Care Provider [phone] Reason for Visit * Auth/Cert (Routine) Specialty Diagnoses / Procedures Referred By Valeria t Referred To Contact Diagnoses Persistent atrial fibrillation PERSISTENT AFIB Michael Barrios MD [facility] [place] [address] [place] [address] [facility] Referral ID Status Reason Start Date Expiration Date Visits Re quested Visits Authorized [id number] 1 1 Encounter Details Date Type Department Care Team (Latest Contact Info) Description 08/28/2022 1:24 PM EST - 08/29/2022 4:02 PM EST Hospital Encounter Intermediate [place] [address] Michael Barrios MD [facility] [place] [address] Persistent atrial fibrillation Discharge Disposition: Home Social History Tobacco Use Types Packs/Day Years [...] place to sleep or slept in a fpc (including now)? No 03/23/2022 Sex and Gender Information Value Date Recorded Sex Assigned at Not on file Gender Identity Not on file Sexual Orientation Not on file documented as of this encounter Last Filed Vital Signs Vital Sign Reading Time Taken Comments Blood Pressure 123/83 08/29/2022 12:13 PM EST Pulse 56 08/29/2022 12:13 PM EST Temperature 36.6 ??C (97.9 ??F) 08/29/2022 1 2:13 PM EST Respiratory Rate 16 08/29/2022 12:1 3 PM EST Oxygen Saturation 97% 08/29/2022 12: 13 PM EST Inhaled Oxygen Concentration - - Weight 109.9 kg (242 lb 4.6 oz) 08/29/2022 4:22 AM EST Height 172.7 cm (5' 8) 08/28/2022 7:46 PM EST Body Mass Index 36.84 08/28/2022 7:46 PM EST documented in this encounter Discharge Summaries * Brandon Mohr PA - 08/29/2022 2:39 PM EST Discharge Summary Patient Name: Wilber Shell Patient Age: 72 y.o. Language: Tajik Race: White Ethnicity: Not nor Admit date: 08/28/2022 Discharge date and time: 08/29/2022 1500 Attending Physician: Michael Barrios MD Discharge Physician: Michael Barrios MD Follow-up Recommendations for Providers: Stable for discharge to home. ?? After dofetilide washout, on September 02, 2022, will start outpatient amiodarone 400mg daily for two weeks, then reducing to 200mg once daily. ?? Follow up will be scheduled with Dr. Arredondo in [place]. Inpatient Provider Contact Information: Cardiac Electrophysiology [phone], option #3 Discharge Diagnoses (Hospital Problems) and Secondary Diagnoses (Chronic Problems): Active Hospital Problems Diagnosis ??? Persistent atrial fibrillation Resolved Hospital Problems No resolved problems to display. Active Non-Hospital Problems Diagnosis ??? Chronic systolic heart failure ??? Drug-induced ITP ??? JEEVAN on CPAP ??? Macrocytic anemia ??? Atrial fibrillation ??? Status post ablation of atrial flutter 01/02/2022 ??? Type 2 diabetes mellitus Operations/Major Procedures: none History of Presentation: 72yo man, patient of Dr. Arredondo, with hx of PAF, now persistent, admitted for initiation of dofetilide. Hospital Course: QTc was quite short initially in afib(420ms), however QTc prolonged >550ms after his second dose and the dofetilide was then discontinued. QTc had shortened on follow up 12 lead EKG to 482ms. Circumstances discussed with Dr. Arredondo who recommended initiation of amiodarone as outpatient after dofetilide washout period(400mg daily for two weeks, then 200mg daily thereafter)with follow up by Dr. Arredondo in [place]. Vital Signs at Discharge: BP: 123/83, Heart Rate: 56, Temp: 36.6 ??C (97.9 ??F), Resp: 16, BMI (Calculated): 37.25 Height: 172.7 cm (5' 8) (08/28/221945) Weight: 109.9 kg (242 lb 4.6 oz) (08/29/22421) Functional and Cognitive Status: Functional; agitated at times Admission Diagnoses: Persistent atrial fibrillation [I48.19] Discharge Diagnoses: PAF; atrial flutter Admission Condition: Persistent atrial fibrillation Indication for Admission: Persistent atrial fibrillation Consults: none Important Studies and Lab Data: Recent Results (from the past 24 hour(s)) Magnesium Result Value Ref Range ?? Magnesium 0.84 0.69 - 1.07 mmol/L Basic Metabolic Panel (non-fasting) Result Value Ref Range ?? Glucose Lvl 274 (H) 65 - 199 mg/dL ?? BUN 19 10 - 20 mg/dL ?? Creatinine 1.03 0.80 - 1.50 mg/dL ?? Sodium 140 135 - 145 mmol/L ?? Potassium 5.2 (H) 3.5 - 5.0 mmol/L ?? Chloride 104 98 - 107 mmol/L ?? CO2 28 22 - 31 mmol/L ?? Anion Gap 8 5 - 15 mmol/L ?? Calcium 9.9 8.5 - 10.5 mg/dL ?? Estimated GFR 77 >=60 mL/min/1.73 m?? POCT Glucose Result Value Ref Range ?? POC Glucose 287 (H) 65 - 199 mg/dL Hemoglobin A1c Result Value Ref Range ?? Hemoglobin A1C 8.2 (H) 4.3 - 5.6 % ?? Est Avg Gluc See note mg/dL POCT Glucose Result Value Ref Range ?? POC Glucose 268 (H) 65 - 199 mg/dL POCT Glucose Result Value Ref Range ?? POC Glucose 208 (H) 65 - 199 mg/dL POCT Glucose Result Value Ref Range ?? POC Glucose 176 65 - 199 mg/dL HA1C 8.2 08/28/2022 Treatments: Dofetilide trial - QTc extended >550ms after second dose; dofetilide discontinued Discharge Exam: Vital Signs: ?? Last value Range last 12 hrs Temperature Temp: 36.4 ??C (97.5 ??F) Temp: [36.4 ??C (97.5 ??F)-36.9 ??C (98.4 ??F)] Heart Rate Heart Rate: (!) 101 Heart Rate: [81-101] Blood Pressure BP: 131/78 BP: (107-131)/(58-78) Respiratory Rate Resp: 18 Resp: [16-20] SpO2 SpO2: 98 % SpO2: [96 %-98 %] ?? Physical Exam Vitals and nursing note reviewed. Constitutional: Appearance: Normal appearance. Cardiovascular: Rate and Rhythm: Normal rate(92); now atrial flutter. Pulses: Normal pulses. Pulmonary: Effort: Pulmonary effort is normal. Breath sounds: Normal breath sounds. Musculoskeletal: General: Normal range of motion. Skin: General: Skin is warm and dry. Neurological: General: No focal deficit present. Mental Status: He is alert and oriented to person, place, and time. Discharge Conditions/Prognosis: fair Discharge to: home Updated Allergies/ADRs: Allergies Allergen Reactions ??? Sulfone Other (See Comments) Thrombocytopenia- history of drug induced ITP with amiodarone vs torsemide vs other Immunizations Given this Hospitalization: There is no immunization history on file for this patient. Discharge Medications: Your Medications New Medications Dose Details AMIOdarone 200 mg Tab Commonly known as: Paceron Take 1 tablet by mouth 2 times daily. FOR FOURTEEN DAYS, then reduce to 200mg once daily thereafter Start taking on: September 02, 2022 200 mg Quantity: 45 tablet Refills: 1 Continued medications, unchanged Dose Details glimepiride 4 mg Tab Commonly known as: AMARYL Take 4 mg by mouth 2 times daily. 4 mg Refills: 0 insulin detemir U-100 100 unit/mL (3 mL) Inpn Commonly known as: Levemir Inject 30 Units subcutaneously 2 times daily. 30 Units Refills: 0 insulin needles (disposable) 29 gauge x 1/2 Ndle 31 g by [facility].(Non-Drug; Combo Route) route daily. 31Gx1/4 31 g Refills: 0 lactobacillus rhamnosus (GG) 10 billion cell Cap Commonly known as: CULTURELLE Take 1 capsule by mouth daily. 1 capsule Refills: 0 metFORMIN 1,000 mg Tab Commonly known as: Glucophage Take 1 tablet by mouth 2 times daily (with meals). 1,000 mg Quantity: 60 tablet Refills: 0 metoprolol succinate XL 100 mg Tablet sr Commonly known as: Toprol-XL Take 1 tablet by mouth daily. 100 mg Quantity: 90 tablet Refills: 3 multivitamin Tab Commonly known as: THERAGRAN Take 1 tablet by mouth daily. 1 tablet Refills: 0 omega-3 acid ethyl esters 1 gram Cap Commonly known as: Lovaza Take 2 g by mouth 2 times daily. 2 g Refills: 0 omeprazole 20 mg Cpdr Commonly known as: PriLOSEC Take 20 mg by mouth daily. 20 mg Refills: 0 potassium citrate SR 10 mEq (1,080 mg) Tbsr Commonly known as: Urocit Take 40 mEq by mouth daily. 40 mEq Refills: 0 pravastatin 20 mg Tab Commonly known as: Pravachol Take 20 mg by mouth 2 times daily. 20 mg Refills: 0 Psyllium Seed-Sucrose Powd Commonly known as: 0 Take by mouth daily. Refills: 0 rivaroxaban 20 mg Tab Commonly known as: Xarelto Take 1 tablet by mouth daily. 20 mg Quantity: 90 tablet Refills: 3 sildenafiL 50 mg Tab Commonly known as: VIAGRA Take 50 mg by mouth as needed for Erectile Dysfunction. 50 mg Refills: 0 SIMETHICONE ORAL Take by mouth as needed. Refills: 0 terbinafine HCL 1 % Crea Commonly known as: LamISIL Apply topically as needed. Refills: 0 STOPPED Medications digoxin 125 mcg (0.125 mg) Tab Commonly known as: Lanoxin Smoking Status at Discharge: Social History Tobacco Use Smoking Status Never Smokeless Tobacco Never Instructions Given to Patient at Discharge: Patient Instructions Antiarrythmic Medication Instructions You have been started on a category of medication call an Anti-arrythmic These medicines are typically used to control or reduce the risk of recurrence of abnormal heart rhythms. 1. Discontinue digoxin 2. Resume taking all pother previously prescribed medicine 3. On September 02, please start taking amiodarone 400mg once daily for fourteen days. Then reduce the dose to 200mg once daily thereafter. You will be scheduled for a follow up appointment with Dr. Arredondo in about a month in [place]. Many of these medicines are sensitive to changes electrolytes in the body(such as potassium, sodium, etc). Therefore it is recommended that blood work be obtained every six months to check electrolytes and kidney function. A 12 lead EKG is also recommended everysix months. These can be checked by your primary health provider or micro photographer if they are agreeable or by the [facility] Electrophysiology group. It is important that while taking these medicines if you develop an illness that causes vomiting ordiarrhea for more than 24 hours or if you faint that you do not take additional antiarrythmics until your blood is checked. Contact your clinician or go to the emergency department. Do not start new medications unless you consult with your healthcare provider to make sure there is no interaction. General Instructions None Future Appointments and Orders Future Appointments and Orders Future Appointments Provider Department Dept Phone 08/30/2022 11:35 AM Gerda Acosta MD [place] [facility] [place] at: [employer] [facility] [phone] 09/12/2022 2:40 PM Curtis Arredondo MD Cardiology at [place] Arrive at: [facility] [address] [phone] 10/02/2022 11:00 AM Curtis Arredondo MD [place] [facility] [place] at: [facility] [phone] 11/07/2022 1:40 PM Curtis Arredondo MD Cardiology at [place] Arrive at: [facility] [address] [phone] Discharge References/Attachments None documented in this encounter Discharge Instructions * Patient Instructions* Brandon Mohr PA - 08/29/2022 10:06 AM EST Antiarrythmic Medication Instructions You have been started on a category of medication call an Anti-arrythmic These medicines are typically used to control or reduce the risk of recurrence of abnormal heart rhythms. Discontinue digoxin Resume taking all pother previously prescribed medicine 3. On September 02, please start taking amiodarone 400mg once daily for fourteen days. Then reduce the dose to 200mg once daily thereafter. You will be scheduled for a follow up appointment with Dr. Arredondo in about a month in [place]. Many of these medicines are sensitive to changes electrolytes in the body(such as potassium, sodium, etc). Therefore it is recommended that blood work be obtained every six months to check electrolytes and kidney function. A 12 lead EKG is also recommended everysix months. These can be checked by your primary health provider or micro photographer if they are agreeable or by the [facility] Electrophysiology group. It is important that while taking these medicines if you develop an illness that causes vomiting ordiarrhea for more than 24 hours or if you faint that you do not take additional antiarrythmics until your blood is checked. Contact your clinician or go to the emergency department. Do not start new medications unless you consult with your healthcare provider to make sure there is no interaction. documented in this encounter Medications at Time of Discharge Medication Sig Dispensed Refills Start Date End Date metFORMIN (Glucophage) 1,000 mg Tablet Take 1 tablet by mouth 2 times daily (with meals). 60 tablet 08/29/2022 terbinafine HCL (LamISIL) 1 % Cream Apply topically as needed. insulin needles, disposable, 29 gauge x 1/2 Needle 31 g by [facility].(Non-Drug; Combo Route) route daily. 31Gx1/4 metoprolol succinate XL (Toprol-XL) 100 mg Tablet Sustained Release 24 hr Take 1 tablet by mouth daily. 90 tablet 3 03/11/2022 rivaroxaban (Xarelto) 20 mg Tablet Take 1 tablet by mouth daily. 90 tablet 3 03/11/2022 insulin detemir U-100 (Levemir) 100 unit/mL (3 [...] by mouth as needed for Erectile Dysfunction. AMIOdarone (Paceron) 200 mg Tablet Take 1 tablet by mouth 2 times daily. FOR FOURTEEN DAYS, then reduce to 200mg once daily thereafter 45 tablet 1 09/02/2022 10/15/2022 omega-3 acid ethyl esters (Lovaza) 1 gram Capsule Take 2 g by mouth 2 times daily. 11/13/2023 lactobacillus rhamnosus, GG, (CULTURELLE) 10 billion cell Capsule Take 1 capsule by mouth daily. 05/15/2023 multivitamin (THERAGRAN) Tablet Take 1 tablet by mouth daily. 11/13/2023 SIMETHICONE ORAL Take by mouth as needed. 05/15/2023 Psyllium Seed-Sucrose (0) Powder Take by mouth daily. 023 documented as of this encounter Progress Notes * Vilma Pickens RN - 08/29/2022 3:59 PM EST Pt discharged to home. AVS reviewed w/ pt and questions answered. IVs and tele removed. Belongings sent home w/ pt. * Brandon Mohr PA - 08/29/2022 9:32 AM EST Images from the original note were not included. Inpatient Cardiac Electrophysiology Discharge Day Note Patient Name: Wilber Shell Service: EP Responsible Attending: Michael Barrios MD Reason for continued hospitalization: Atrial fibrillation; initiation of dofetilide Active Problems: Active Hospital Problems Diagnosis ??? Persistent atrial fibrillation Resolved Hospital Problems No resolved problems to display. Interval History: 72yo man, patient of Dr. Arredondo, with hx of PAF, now persistent, admitted for initiation of dofetilide. QTc was quite short initially in afib(420ms), however QTc prolonged >550ms after his second dose and the dofetilide was then discontinued. QTc had shortened on follow up 12 lead EKG to <500ms. Circumstances discussed with Dr. Arredondo who recommended initiation of amiodarone as outpatient after dofetilide washout period(400mg daily for two weeks, then 200mg daily thereafter) with follow up by Dr. Arredondo in [place]. Review of Systems Constitutional: Positive for fatigue. Negative for chills and diaphoresis. Respiratory: Positive for shortness of breath. Cardiovascular: Negative for chest pain, palpitations and leg swelling. Gastrointestinal: Negative for diarrhea, nausea and vomiting. Genitourinary: Negative for dysuria. Neurological: Positive for speech difficulty. Negative for syncope. Telemetry: HR: 81-100 atrial fibrillation, converted to sinus rhythm Meds: Scheduled Meds: ??? glimepiride 4 mg Oral BID ??? metoprolol succinate XL 100 mg Oral Daily ??? pantoprazole EC 20 mg Oral Daily ??? pravastatin 20 mg Oral BID ??? sodium chloride 0.9 % (flush) 5 mL Intravenous BID ??? sodium chloride 0.9 % (flush) 5 mL Intravenous BID ??? insulin detemir U-100 30 Units Subcutaneous BID ??? rivaroxaban 20 mg Oral Daily ? ? insulin lispro 1-6 Units Subcutaneous 4 Times Daily AC & HS Continuous Infusions: PRN Meds:sodium chloride 0.9 % (flush), nitroGLYcerin, sodium chloride 0.9 % (flush), lidocaine, acetaminophen, glucose 40% oral geL OR dextrose 10% OR glucagon Physical Exam: Vital Signs: Last value Range last 12 hrs Temperature Temp: 36.4 ??C (97.5 ??F) Temp: [36.4 ??C (97.5 ??F)-36.9 ??C (98.4 ??F)] Heart Rate Heart Rate: (!) 101 Heart Rate: [81-101] Blood Pressure BP: 131/78 BP: (107-131)/(58-78) Respiratory Rate Resp: 18 Resp: [16-20] SpO2 SpO2: 98 % SpO2: [96 %-98 %] Physical Exam Vitals and nursing note reviewed. Constitutional: Appearance: Normal appearance. Cardiovascular: Rate and Rhythm: Normal rate and regular rhythm. Pulses: Normal pulses. Pulmonary: Effort: Pulmonary effort is normal. Breath sounds: Normal breath sounds. Musculoskeletal: General: Normal range of motion. Skin: General: Skin is warm and dry. Neurological: General: No focal deficit present. Mental Status: He is alert and oriented to person, place, and time. Lab Comments: Recent Results (from the past 24 hour(s)) Magnesium Result Value Ref Range Magnesium 0.84 0.69 - 1.07 mmol/L Basic Metabolic Panel (non-fasting) Result Value Ref Range Glucose Lvl 274 (H) 65 - 199 mg/dL BUN 19 10 - 20 mg/dL Creatinine 1.03 0.80 - 1.50 mg/dL Sodium 140 135 - 145 mmol/L Potassium 5.2 (H) 3.5 - 5.0 mmol/L Chloride 104 98 - 107 mmol/L CO2 28 22 - 31 mmol/L Anion Gap 8 5 - 15 mmol/L Calcium 9.9 8.5 - 10.5 mg/dL Estimated GFR 77 >=60 mL/min/1.73 m?? POCT Glucose Result Value Ref Range POC Glucose 287 (H) 65 - 199 mg/dL Hemoglobin A1c Result Value Ref Range Hemoglobin A1C 8.2 (H) 4.3 - 5.6 % Est Avg Gluc See note mg/dL POCT Glucose Result Value Ref Range POC Glucose 268 (H) 65 - 199 mg/dL POCT Glucose Result Value Ref Range POC Glucose 208 (H) 65 - 199 mg/dL POCT Glucose Result Value Ref Range POC Glucose 176 65 - 199 mg/dL Pertinent Radiographic/Diagnostic Results: 12 lead EK08/29/2022 Assessment: Wilber Shell is a 72 y.o. male with hx of PAF which became persistent and he was admitted for dofetilide initiation at Dr. Arredondo's request. He arrived in atrial fibrillation. Aftertwo doses of dofetilide his QTc prolonged dramatically to >550ms and dofetilide was discontinued. Shortly thereafter he converted to sinus rhythm. Subsequent 12 lead EKG showed that his QTc had shortened to 482ms in atrial flutter @ 92bpm Plan: Stable for discharge to home. After dofetilide washout, will start outpatient amiodarone 400mg daily for two weeks, then reducingto 200mg once daily. Follow up will be scheduled with Dr. Arredondo in [place]. Provider: ALISON Wagoner EP Consult attending physician: Gwen Barrios MD EP Consult positional pager #[phone](EPMD) EP Device interrogation positional pager # [phone] Associated attestation - Michael Barrios MD - 08/31/2022 2:57 PM EST Cardiac Electrophysiology Attending Addendum: The patient was seen, interviewed and examined by me, and Brandon Mohr's note above was reviewed by me and agreed with. Case also discussed w/ patient's primary EP Dr. Arredondo. Patient with excessive QTc prolongation after 2 doses of dofetilide - allowed to wash it out w/ plans to start amiodaroneand f/u w/ Dr. Arredondo to discuss electrophysiology study with view towards catheter ablation. Michael Barrios MD, PhD, [facility] Cardiac Electrophysiology * Ronak Borrego RN - 08/29/2022 12:53 AM EST Shift EVALUATION NOTE: Shift SUMMARY: Pt AAOx4. VSS on RA. Pt denies CP or SOB. AFIB (freq PVC/pairs) on tele, see scanned documents. Rates.64-116 . Insulin adjusted to QID. BG 268, recheck down to 208. Second dose Tikosyn given, 2hr post EKG Qtc= 542, MD notified. See flowsheets for I&O. Call montero within reach. Uneventful evening for pt, pt slept between care. PLAN MOVING FORWARD: Tikosyn load 2hr post Tikosyn EKG DCCV if doesn't self convert Continue to monitor per protocol Discharge planning as appropriate documented in this encounter H&P Notes * Brandon Mohr PA - 08/28/2022 1:05 PM EST Cardiac Electrophysiology Admission H&P Patient Name: Wilber Shell Date of : 1950 Age: 72 y.o. Hospital Admit Date: 08/28/2022 Inpatient Attending: Michael Barrios MD PCP: Domenica Atkins APRN Presenting Diagnosis/Chief Complaint: Persistent atrial fibrillation; planned initiation of AAD dofetilide Active Problem List: Active Hospital Problems Diagnosis ??? Persistent atrial fibrillation Resolved Hospital Problems No resolved problems to display. HPI 72yo man with PAF, now persistent, patient of Dr. Arredondo, admitted for dofetilide initiation. He underwent DC cardioversion at [place] on July 19, 2022 with ERAF within minutes. He is rate controlled with digoxin and metoprolol and anticoagulated with Xarelto. ?? Past Medical History: Past Medical History: Diagnosis Date ??? Atrial flutter ??? GERD (gastroesophageal reflux disease) ??? JEEVAN (obstructive sleep apnea) ??? T2DM (type 2 diabetes mellitus) Surgical History/Problems: No past surgical history on file. Significant Family History: No family history on file. Social History: Social History Socioeconomic History ??? Marital status: Spouse name: Not on file ??? Number of children: Not on file ??? Years of education: Not on file ??? Highest education level: Not on file Occupational History ??? Not on file Tobacco Use ??? Smoking status: Never ??? [...] Unstable Housing in the Last Year: No Review of Systems Constitutional: Positive for fatigue. Negative for chills, diaphoresis and fever. Respiratory: Positive for shortness of breath. Negative for chest tightness. Cardiovascular: Negative for chest pain, palpitations and leg swelling. Gastrointestinal: Negative for diarrhea, nausea and vomiting. Neurological: Negative for syncope and light-headedness. Medications: Medications 08/28/22 1256 Medication Sig Taking? digoxin (Lanoxin) 125 mcg (0.125 mg) Tablet Take 125 mcg by mouth daily. Yes metoprolol succinate XL (Toprol-XL) 100 mg Tablet Sustained Release 24 hr Take 1 tablet by mouth daily. Yes rivaroxaban (Xarelto) 20 mg Tablet Take 1 tablet by mouth daily. Yes omega-3 acid ethyl esters (Lovaza) 1 gram Capsule Take 2 g by mouth 2 times daily. Yes insulin detemir U-100 (Levemir) 100 unit/mL (3 mL) Insulin Pen Inject 30 Units subcutaneously 2 times daily. Yes glimepiride (AMARYL) 4 mg Tablet Take 4 mg by mouth 2 times daily. Yes pravastatin (Pravachol) 20 mg Tablet Take 20 mg by mouth 2 times daily. Yes multivitamin (THERAGRAN) Tablet Take 1 tablet by mouth daily. Yes potassium citrate SR (Urocit) 10 mEq (1,080 mg) Tablet Sustained Release Take 40 mEq by mouth daily. Yes omeprazole (PriLOSEC) 20 mg Capsule, Delayed Release(E.C.) Take 20 mg by mouth daily. Yes terbinafine HCL (LamISIL) 1 % Cream Apply topically as needed. insulin needles, disposable, 29 gauge x 1/2 Needle 31 g by [facility].(Non-Drug; Combo Route) route daily. 31Gx1/4 lactobacillus rhamnosus, GG, (CULTURELLE) 10 billion cell Capsule Take 1 capsule by mouth daily. sildenafiL (VIAGRA) 50 mg Tablet Take 50 mg by mouth as needed for Erectile Dysfunction. SIMETHICONE ORAL Take by mouth as needed. Psyllium Seed-Sucrose (0) Powder Take by mouth daily. Allergies: Allergies Allergen Reactions ??? Sulfone Other (See Comments) Thrombocytopenia- history of drug induced ITP with amiodarone vs torsemide vs other Physical Exam Vitals and nursing note reviewed. Constitutional: Appearance: Normal appearance. Cardiovascular: Rate and Rhythm: Normal rate. Rhythm irregular. Pulses: Normal pulses. Pulmonary: Effort: Pulmonary effort is normal. Breath sounds: Normal breath sounds. Musculoskeletal: General: Normal range of motion. Skin: General: Skin is warm and dry. Neurological: General: No focal deficit present. Mental Status: He is alert and oriented to person, place, and time. Diagnostics: 12 lead EK08/28/2022 Atrial fibrillation @ 80; QRS 80; QTc 461ms ?? Echocardiogram: 03/02/2022 Left ventricular systolic function is mildly reduced. The left ventricular ejection fraction is 45% by Mendoza's biplane. Right ventricular systolic function is mildly decreased. There is moderate to severe mitral regurgitation. Compared with the prior SYDNEY of 03/01/2022, LV systolic function has improved. Moderate to severe MR is now noted. LABS: Recent Results (from the past 24 hour(s)) Magnesium Result Value Ref Range Magnesium 0.84 0.69 - 1.07 mmol/L Basic Metabolic Panel (non-fasting) Result Value Ref Range Glucose Lvl 274 (H) 65 - 199 mg/dL BUN 19 10 - 20 mg/dL Creatinine 1.03 0.80 - 1.50 mg/dL Sodium 140 135 - 145 mmol/L Potassium 5.2 (H) 3.5 - 5.0 mmol/L Chloride 104 98 - 107 mmol/L CO2 28 22 - 31 mmol/L Anion Gap 8 5 - 15 mmol/L Calcium 9.9 8.5 - 10.5 mg/dL Estimated GFR 77 >=60 mL/min/1.73 m?? ASSESSMENT: 72yo man with persistent atrial fibrillation, recurrent after cardioversion on July 19, 2022,with ERAF, admitted for planned AAD initiation. Renal function is normal(1.03), serum potassium is 5.2 and magnesium is 0.84. QTc in atrial fibrillation is acceptable at 460ms. ?? TREATMENT PLAN: Admit to [facility] with continuous telemetry Digoxin discontinued Metformin discontinued due to interaction with dofetilide - will consult diabetes management for substitution Provider: ALISON Wagoner EP Consult attending physician: Gwen Barrios MD, PhD EP Consult positional pager #[phone](EPWI) EP Device interrogation positional pager # [phone] Associated attestation - Michael Barrios MD - 08/29/2022 8:16 AM EST Cardiac Electrophysiology Attending Addendum: The patient was seen, interviewed and examined by me, and Brandon Mohr''s note above was reviewedby me and agreed with. Plan to begin dofetilide at 500 mcg po q12.w/ routine telemetry and ECGs forQTc monitoring. Michael Barrios MD, PhD, [facility] Cardiac Electrophysiology documented in this encounter Miscellaneous Notes * Consult Note - Estrellita Mcgraw APRN - 08/28/2022 2:35 PM EST Diabetes Management Team Inpatient Consult Date of Consultation: 08/28/2022 Consult Requested by: Cardiology Electrophysiology Reason for Consultation: Wilber Sehll is a 72 y.o. male with PMH significant for T2DM who wasadmitted on 08/28/2022 currently being treated for A. We are being consulted to assist with diabetes management and to provide a review of superintendent terminal diabetes care. Diabetes History: Wilber Shell has had diabetes for over 10 years. Current outpatient diabetes regimen: Diabetes Provider: PCP Medications: Metformin 1000mg twice daily, Glimepiride 4 mg twice daily, Levemir 30 mg twice daily Monitoring is done 2 times a day Most recent HA1c was ordered Typical diet is: 2-3 meals and 1-2 snacks a day - Regular diet Typical exercise regimen is sedentary Trouble with hypoglycemia a rare 60 every month or so Current Weight 111.1 kg Diabetes Complications Status: Eyes: +cataracts. Last eye exam was a few weeks ago. Kidneys: Last GFR on 08/28/22 was 77 Sensory: +neuropathy Autonomic: None Cardiovascular : +Afib Current Hospital Diabetes Care: Medications: Levemir 30 units twice daily Lispro 1:20>140mg/dl correction scale Monitoring: three times daily Diet: Cardiac diet ROS: deferred PMH Past Medical History: Diagnosis Date ??? Atrial flutter ??? GERD (gastroesophageal reflux disease) ??? JEEVAN (obstructive sleep apnea) ??? T2DM (type 2 diabetes mellitus) Current Hospital Medications: ??? glimepiride 4 mg Oral BID ??? [START ON 08/29/2022] metoprolol succinate XL 100 mg Oral Daily ??? [START ON 08/29/2022] pantoprazole EC 20 mg Oral Daily ??? pravastatin 20 mg Oral BID ??? sodium chloride 0.9 % (flush) 5 mL Intravenous BID ??? sodium chloride 0.9 % (flush) 5 mL Intravenous BID ??? insulin detemir U-100 30 Units Subcutaneous BID ??? insulin lispro 1-6 Units Subcutaneous TID AC ??? [START ON 08/29/2022] rivaroxaban 20 mg Oral Daily ??? dofetilide 500 mcg Oral 2 times per day PRN: sodium chloride 0.9 % (flush), nitroGLYcerin, sodium chloride 0.9 % (flush), lidocaine, acetaminophen, glucose 40% oral geL OR dextrose 10% OR glucagon Allergy: Allergies Allergen Reactions ??? 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 Smoking status: Never ??? Smokeless tobacco: Never Vaping Use ??? Vaping Use: Never used Substance Use Topics ??? Alcohol use: Not Currently ??? Drug use: Never Family history: No family history on file. Vitals Last value Range last 24 hrs Temperature Temp: 36.7 ??C (98.1 ??F) Temp: [36.7 ??C (98.1 ??F)] Heart Rate Heart Rate: 76 Heart Rate: [76] Blood Pressure BP: 110/63 BP: (110-124)/(63-75) Respiratory Rate Resp: 14 Resp: [14] SpO2 SpO2: 97 % SpO2: [97 %-100 %] Physical Exam: deferred Labs: Lab Results Component Value Date BUN 19 08/28/2022 CREATININE 1.03 08/28/2022 GLUCOSE 274 (H) 08/28/2022 ESTGFR 77 08/28/2022 Lab Results Component Value Date HA1C 7.5 (H) 03/01/2022 No results found for: MICROALBUR Lab Results Component Value Date CHLPL 96 02/28/2022 Lab Results Component Value Date HDL 26 02/28/2022 Lab Results Component Value Date LDLCHOL 57 02/28/2022 Lab Results Component Value Date TRIG 67 02/28/2022 Lab Results Component Value Date CHOLHDL 3.7 02/28/2022 Assessment: Patient is a 72 y.o. years old male with PMH significant for DM (Last A1C of 7.5%) who was admittedon 08/28/2022 for Afib. Diabetes controlled and currently complicated by elevated glucose. Currently with variability of blood glucose levels while hospitalized requiring adjustment of insulin regimen and DM medications. Due to the addition of Dofetilide , metformin has been continued. Waiting on A1c result or more glucose readings to determine new regimen. Npo changes at this time. Plan: Levemir 30 units twice daily Lispro 1:20>140mg/dl correction scale Glimepiride 4mg twice daily with meals. Monitoring: three times daily Diet: Cardiac diet Diabetes Discharge Planning Medications - Outpatient treatment regimen recommendations pending based on the hospital course, [facility] diabetes care: Medications - Outpatient treatment regimen recommendations pending based on the hospital course. Monitoring - continue BG tid ac & hs Diet - low fat/low carb diet Exercise - weight-bearing exercise 30 min/day, as tolerated Thank you for allowing us to provide care for your patient Estrellita Mcgraw APRN [facility] [place] [facility] Diabetes Management Pager [phone] minutes of this 80 minute visit was spent with the patient in counseling on diabetes and treatment plan, reviewing all glucose and insulin data as well as relevant laboratory results with the patient, and coordination of care on the inpatient unit documented in this encounter Plan of Treatment Upcoming Encounters Date Type Department Care Team (Late st Contact Info) Description 12/23/2024 3:30 PM EDT Office Visit Cardiology at [address] [place] [id number] Carlos Eduardo Quan PA [facility] [place] [address] documented as of this encounter Procedures Procedure Name Priority Date/Time Associated Diagnosis Comments POCT GLUCOSE Routine 08/29/2022 2:51 PM EST EKG 12-LEAD Routine 08/29/2022 1:57 PM EST Persistent atrial fibrillation POCT GLUCOSE Routine 08/29/2022 12:13 PM EST EKG 12-LEAD Routine 08/29/2022 10:16 AM EST Persistent atrial fibrillation EKG 12-LEAD Routine 08/29/2022 8:32 AM EST Persistent atrial fibrillation POCT GLUCOSE Routine 08/29/2022 7:56 AM EST EKG 12-LEAD Routine 08/29/2022 4:00 AM EST Persistent atrial fibrillation POCT GLUCOSE Routine 08/29/2022 12:09 AM EST POCT GLUCOSE Routine 08/28/2022 7:57 PM EST EKG 12-LEAD Routine 08/28/2022 5:02 PM EST Persistent atrial fibrillation HC HEMOGLOBIN A1C STAT 08/28/2022 4:5 2 PM EST POCT GLUCOSE Routine 08/28/2022 4:13 PM EST documented in this encounter Results * (ABNORMAL) POCT Glucose (08/29/2022 2:51 PM EST) Glucose, POC 241(H) 65 - 199 mg/dL [facility] Comment: Supplemental ranges: <140 mg/dL before meals <180 mg/dL all other times of the day Blood 08/29/2022 2:51 PM EST 08/29/2022 2:51 PM EST Michael Barrios MD POINT OF CARE TEST O RDERABLES Performing Organization Address City/State/[facility] Co de Phone Number [facility] [place] [address] * EKG 12 Lead (08/29/2022 1:57 PM EST) Ventricular rate 92 BPM MUSE SYSTEM Atrial Rate 92 BPM MUSE SYSTEM P-R Interval 258 ms MUSE SYSTEM QRS Duration 86 ms MUSE SYSTEM Q-T Interval 390 ms MUSE SYSTEM QTC Calculated (Bezet) 482 ms MUSE SYSTEM Calculated P Fitzpatrick 69 degrees MUSE SYSTEM Calculated R Fitzpatrick -33 degrees MUSE SYSTEM Calculated T Fitzpatrick -9 degrees MUSE SYSTEM INTERPRETATION Sinus rhythm with 1st degree A-V block Left axis deviation Inferior infarct (cited on or before 10-JAN-2022) Abnormal ECG When compared with ECG of 29-AUG-2022 10:17, Sinus rhythm has replaced Atrial fibrillation Confirmed by MD ALBINO, NABILA ([id number]) on 08/29/2022 3:12:13 PM MUSE SYSTEM 08/29/2022 1:57 PM EST 08/29/2022 3:12 PM EST Michael Barrios MD ECG ORDERABLES MUSE SYSTEM * (ABNORMAL) POCT Glucose (08/29/2022 12:13 PM EST) Glucose, POC 245(H) 65 - 199 mg/dL [facility] Comment: Supplemental ranges: <140 mg/dL before meals <180 mg/dL all other times of the day Blood 08/29/2022 12:1 3 PM EST 08/29/2022 12:13 PM EST Michael Barrios MD POINT OF CARE TEST O RDERABLES Performing Organization Address City/[facility] Co de Phone Number [facility] [place] [address] * EKG 12 Lead (08/29/2022 10:16 AM EST) Ventricular rate 73 BPM MUSE SYSTEM Atrial Rate 91 BPM MUSE SYSTEM QRS Duration 88 ms MUSE SYSTEM Q-T Interval 412 ms MUSE SYSTEM QTC Calculated (Bezet) 453 ms MUSE SYSTEM Calculated P Fitzpatrick 82 degrees MUSE SYSTEM Calculated R Fitzpatrick -47 degrees MUSE SYSTEM Calculated T Fitzpatrick -21 degrees MUSE SYSTEM INTERPRETATION Atrial tachycardia with variable A-V block Left axis deviation Inferior infarct (cited on or before 10-JAN-2022) Abnormal ECG When compared with ECG of 29-AUG-2022 08:32, Variable AV block is now present QT has shortened Confirmed by MD Chris Danette ([id number]) on 08/29/2022 3:53:59 PM MUSE SYSTEM 08/29/2022 10:1 6 AM EST 08/29/2022 3:53 PM EST Michael Barrios MD ECG ORDERABLES Performing Organization Address City/[facility]/ZIP Co de Phone Number MUSE SYSTEM * EKG 12 Lead (08/29/2022 8:32 AM EST) Ventricular rate 94 BPM MUSE SYSTEM Atrial Rate 94 BPM MUSE SYSTEM P-R Interval 212 ms MUSE SYSTEM QRS Duration 86 ms MUSE SYSTEM Q-T Interval 410 ms MUSE SYSTEM QTC Calculated (Bezet) 512 ms MUSE SYSTEM Calculated P Fitzpatrick 64 degrees MUSE SYSTEM Calculated R Fitzpatrick -51 degrees MUSE SYSTEM Calculated T Fitzpatrick 2 degrees MUSE SYSTEM INTERPRETATION Sinus rhythm with 1st degree A-V block Left axis deviation Inferior infarct (cited on or before 10-JAN-2022) Prolonged QT Abnormal ECG When compared with ECG of 29-AUG-2022 04:00, Sinus rhythm has replaced Atrial fibrillation Confirmed by MD Chris Danette ([id number]) on 08/29/2022 3:50:42 PM MUSE SYSTEM 08/29/2022 8:32 AM EST 08/29/2022 3:50 PM EST Michael Barrios MD ECG ORDERABLES MUSE SYSTEM * POCT Glucose (08/29/2022 7:56 AM EST) Glucose, POC 176 65 - 199 mg/dL [facility] Comment: Supplemental ranges: <140 mg/dL before meals <180 mg/dL all other times of the day Blood 08/29/2022 7:56 AM EST 08/29/2022 7:56 AM EST Michael Barrios MD POINT OF CARE TEST O RDERABLES Performing Organization Address City/[facility]/ZIP Co de Phone Number [facility] [place] [address] * EKG 12 Lead (08/29/2022 4:00 AM EST) Ventricular rate 88 BPM MUSE SYSTEM Atrial Rate 37 BPM MUSE SYSTEM QRS Duration 92 ms MUSE SYSTEM Q-T Interval 448 ms MUSE SYSTEM QTC Calculated (Bezet) 542 ms MUSE SYSTEM Calculated R Fitzpatrick -12 degrees MUSE SYSTEM Calculated T Fitzpatrick 2 degrees MUSE SYSTEM INTERPRETATION Atrial fibrillation with premature ventricular or aberrantly conducted complexes Possible Inferior infarct (cited on or before 10-JAN-2022) Prolonged QTc Abnormal ECG When compared with ECG of 28-AUG-2022 17:02, Aberrant conduction is now present QT has lengthened Confirmed by MD Chris Danette ([id number]) on 08/29/2022 3:49:56 PM MUSE SYSTEM 08/29/2022 4:00 AM EST 08/29/2022 3:49 PM EST Michael Barrios MD ECG ORDERABLES MUSE SYSTEM * (ABNORMAL) POCT Glucose (08/29/2022 12:09 AM EST) Glucose, POC 208(H) 65 - 199 mg/dL [facility] Comment: Supplemental ranges: <140 mg/dL before meals <180 mg/dL all other times of the day Blood 08/29/2022 12:0 9 AM EST 08/29/2022 12:09 AM EST Michael Barrios MD POINT OF CARE TEST O RDERABLES Performing Organization Address [facility] Co de Phone Number [facility] [place] [address] * (ABNORMAL) POCT Glucose (08/28/2022 7:57 PM EST) Glucose, POC 268(H) 65 - 199 mg/dL [facility] Comment: Supplemental ranges: <140 mg/dL before meals <180 mg/dL all other times of the day Blood 08/28/2022 7:57 PM EST 08/28/2022 7:57 PM EST Michael Barrios MD POINT OF CARE TEST O RDERAJESSIE Performing Organization Address City/[facility]/ZIP Co de Phone Number [facility] [place] [address] * EKG 12 Lead (08/28/2022 5:02 PM EST) Ventricular rate 62 BPM MUSE SYSTEM QRS Duration 86 ms MUSE SYSTEM Q-T Interval 422 ms MUSE SYSTEM QTC Calculated (Bezet) 428 ms MUSE SYSTEM Calculated R Fitzpatrick -31 degrees MUSE SYSTEM Calculated T Fitzpatrick -17 degrees MUSE SYSTEM INTERPRETATION Atrial fibrillation Left axis deviation Inferior infarct (cited on or before 10-JAN-2022) Abnormal ECG When compared with ECG of 28-AUG-2022 11:18, (unconfirmed) No significant change was found Confirmed by MD Chris Danette ([id number]) on 08/29/2022 3:47:15 PM MUSE SYSTEM 08/28/2022 5:02 PM EST 08/29/2022 3:47 PM EST Michael Barrios MD ECG ORDERABLES MUSE SYSTEM * (ABNORMAL) Hemoglobin A1c (08/28/2022 4:52 PM EST) Hemoglobin A1c 8.2(H) 4.3 - 5.6 % [facility] Comment: Reference Range: 4.3 - 5.6% [...] Mellitus, Diabetes Care 2013; 36: Suppl. 1, A57-61 Estimated Average Glucose See note mg/dL [facility] Comment: Estimated Average Glucose not appropriate [...] into estimated average glucose values. ??Diabetes Care 2008:31(8):1253-2229. Blood 08/28/2022 4:52 PM EST 08/28/2022 5:15 PM EST Narrative Resulting Agency Comment Spec In Lab Michael Barrios MD CHEMISTRY ORDERABLES Performing Organization Address City/[facility]/ZIP Co de Phone Number [facility] [place] [address] * (ABNORMAL) POCT Glucose (08/28/2022 4:13 PM EST) Glucose, POC 287(H) 65 - 199 mg/dL [facility] Comment: Supplemental ranges: <140 mg/dL before meals <180 mg/dL all other times of the day Blood 08/28/2022 4:13 PM EST 08/28/2022 4:13 PM EST Michael Barrios MD POINT OF CARE TEST O RDERABLES Performing Organization Address City/[facility]/ZIP Co de Phone Number [facility] [place] [address] documented in this encounter Visit Diagnoses Diagnosis Persistent atrial fibrillation- Primary Atrial fibrillation Persistent atrial fibrillation Atrial fibrillation documented in this encounter Admitting Diagnoses Diagnosis Persistent atrial fibrillation Atrial fibrillation documented in this encounter Administered Medications Inactive Administered Medications - up to 3 most recent administrations Medication Order MAR Action Action Date Dose Rate Site dextrose 10% infusion 250 mL, at 1,000 mL/hr, Intravenous, EVERY 30 MIN PRN, Starting on Sat08/28/22 at 1346, Until Sat08/29/22 at 1802, For BG 50-70 mg/dL: Oral treatment preferred: If able to drink, give 120 mL Juice or Regular (not diet) soda OR If NPO, give 15 gram glucose 40% oral gel massaged into buccal mucosa OR if unconscious or uncooperative, give 25 gram (250 mL) Dextrose 10% IV over 15 minutes per protocol OR, if no IV access, 1 mg Glucagon IM. For BG less than 50 mg/dL: Oral treatment preferred: If able to drink, give 240 mL Juice or Regular (not diet) soda OR If NPO, give 30 gram glucose 40% oral gel massaged in buccal mucosa OR if unconscious or uncooperative, give 25 gram (250 mL) Dextrose 10% IV over 15 minutes per protocol OR, if no IV access, 1 mg Glucagon IM. Recheck BG in 30 minutes. May repeat juice/soda, gel, dextrose or glucagon once per episode. For persistent hypoglycemia, consider longer-acting treatment for the duration of the active insulin. dofetilide (Tikosyn) capsule 500 mcg 500 mcg, Oral, USER SPECIFIED (Irregular times on Sat), 10 doses, First dose on Sat08/28/22 at 1500, Last dose on Sat09/01/22 at 2100, Indication for dofetilide: persistent atrial fibrillation Baseline: Lead= II QTc= 460ms QTc measurement via monitor ECG prior to first dose and 2 to 3 hours after each of the first 5 doses. Document in comments section of MAR associated with dose. If QTc increased by greater than 25% over baseline or greater than 550 milliseconds after FIRST dose, notify MD for possible dose adjustment. Continuous ECG monitoring for minimum of 3 days after initiation of dofetilide or 12 hours after conversion to sinus rhythm, whichever is longer If QTc greater than 550 milliseconds any time after SECOND dose, discontinue dofetilide and notify MD. No concomitant use of cimetidine, trimethoprim (alone or in combination with sulfamethoxazole), ketoconazole, prochlorperazine, megestrol, verapamil, itraconazole, hydroCHLOROthiazide, vardenafil, fluvoxaMINE, FLUoxetine other antiarrhythmic drugs, or drugs that prolong QT. Presence of metFORMIN, macrolide antibiotics, azole anti fungal agents, protease inhibitors, AMIOdarone, dilTIAZem, grapefruit juice, nefazodone, norfloxacin, quiNINE, zafrilukast (inhibitors of cytochrome [id number]) may increase dofetilide levels; consider decreasing the dose by 50%. Not or ( Category C) Potassium level greater than or equal 3.5 mg/dL, Magnesium greater than or equal 0.65 mmol/L, Creatinine clearance greater than or equal 20 mL/minute Baseline QTc less than or equal 480 milliseconds (500 milliseconds in patients with conduction delay), Routine, Please indicate the name of the EP Attending who authorized the use of Dofetilide: Approved by Curtis Arredondo MD Given 08/29/2022 2:01 AM EST 500 mcg Given 08/28/2022 3:00 PM EST 500 mcg glimepiride (Amaryl) tablet 4 mg 4 mg, Oral, 2 TIMES DAILY, First dose on Sat08/28/22 at 1700, Until Discontinued, Routine Given 08/29/2022 8:40 AM EST 4 mg Given 08/28/2022 5:03 PM EST 4 mg glucagon (Glucagen) (1 mg/mL) injection solution 1 mg 1 mg, Intramuscular, EVERY 30 MIN PRN, Starting on Sat08/28/22 at 1346, Until Sat08/29/22 at 1802, Low blood sugar, For BG 50-70 mg/dL: Oral treatment preferred: If able to drink, give 120 mL Juice or Regular (not diet) soda OR If NPO, give 15 gram glucose 40% oral gel massaged into buccal mucosa OR if unconscious or uncooperative, give 25 gram (250 mL) Dextrose 10% IV over 15 minutes per protocol OR, if no IV access, 1 mg Glucagon IM. For BG less than 50 mg/dL: Oral treatment preferred: If able to drink, give 240 mL Juice or Regular (not diet) soda OR If NPO, give 30 gram glucose 40% oral gel massaged in buccal mucosa OR if unconscious or uncooperative, give 25 gram (250 mL) Dextrose 10% IV over 15 minutes per protocol OR, if no IV access, 1 mg Glucagon IM. Recheck BG in 30 minutes. May repeat juice/soda, gel, dextrose or glucagon once per episode. For persistent hypoglycemia, consider longer-acting treatment for the duration of the active insulin., Routine glucose (Glutose) 40% oral geL 15-30 g of glucose, Buccal, EVERY 30 MIN PRN, Starting on Sat08/28/22 at 1346, Until Sat08/29/22 at 1802, Low blood sugar, For BG 50-70 mg/dL: Oral treatment preferred: If able to drink, give 120 mL Juice or Regular (not diet) soda OR If NPO, give 15 gram glucose 40% oral gel massaged into buccal mucosa OR if unconscious or uncooperative, give 25 gram (250 mL) Dextrose 10% IV over 15 minutes per protocol OR, if no IV access, 1 mg Glucagon IM. For BG less than 50 mg/dL: Oral treatment preferred: If able to drink, give 240 mL Juice or Regular (not diet) soda OR If NPO, give 30 gram glucose 40% oral gel massaged in buccal mucosa OR if unconscious or uncooperative, give 25 gram (250 mL) Dextrose 10% IV over 15 minutes per protocol OR, if no IV access, 1 mg Glucagon IM. Recheck BG in 30 minutes. May repeat juice/soda, gel, dextrose or glucagon once per episode. For persistent hypoglycemia, consider longer-acting treatment for the duration of the active insulin. 1 tube of Glutose-15 contains 15 grams of glucose (net weight of tube = 37.5 grams.), Routine insulin detemir (Levemir) (100 unit/mL) subcutaneous injection vial 30 Units 30 Units, Subcutaneous, 2 TIMES DAILY, First dose on Sat08/28/22 at 1700, Until Discontinued Given 08/29/2022 8:38 AM EST 30 Units Given 08/28/2022 5:04 PM EST 30 Units insulin detemir (Levemir) (100 unit/mL) subcutaneous injection vial 35 Units 35 Units, Subcutaneous, 2 TIMES DAILY, First dose (after last modification) on Sat08/29/22 at 2100, Until Discontinued insulin lispro (HumaLOG;Admelog) (100 unit/mL) subcutaneous injection vial 1-6 Units 1-6 Units, Subcutaneous, 3 TIMES DAILY BEFORE MEALS, First dose on Sat08/28/22 at 1630, Until Discontinued, CORRECTION BOLUS [1-6 Units] Moderate Sliding Scale (BG in mg/dL): Correction factor 20 (1 unit of insulin is expected to drop the glucose 20 mg/dL) BG 140 - 160 Give 1 unit BG 161 - 180 Give 2 units BG 181 - 200 Give 3 units BG 201 - 220 Give 4 units BG 221 - 240 Give 5 units BG greater than 240, give 6 units and recheck BG in 2 hours. - If recheck BG is LESS than 240, give no insulin and resume schedule. - If recheck BG is GREATER than 240, give 6 units and repeat BG in 2 hours (no more than 3 times) & call for new insulin orders. DO NOT hold if NPO, unless specifically directed to do so by written order. Per Blood Glucose Monitoring Policy, re-check a BG of > 240 mg/dL in 2 hours., Routine Given 08/28/2022 5:03 PM EST 6 Units insulin lispro (HumaLOG;Admelog) (100 unit/mL) subcutaneous injection vial 1-6 Units 1-6 Units, Subcutaneous, 4 TIMES DAILY BEFORE MEALS & NIGHTLY, First dose (after last modification) on Sat08/28/22 at 2100, Until Discontinued, CORRECTION BOLUS [1-6 Units] Moderate Sliding Scale (BG in mg/dL): Correction factor 20 (1 unit of insulin is expected to drop the glucose 20 mg/dL) BG 140 - 160 Give 1 unit BG 161 - 180 Give 2 units BG 181 - 200 Give 3 units BG 201 - 220 Give 4 units BG 221 - 240 Give 5 units BG greater than 240, give 6 units and recheck BG in 2 hours. - If recheck BG is LESS than 240, give no insulin and resume schedule. - If recheck BG is GREATER than 240, give 6 units and repeat BG in 2 hours (no more than 3 times) & call for new insulin orders. DO NOT hold if NPO, unless specifically directed to do so by written order. Per Blood Glucose Monitoring Policy, re-check a BG of > 240 mg/dL in 2 hours., Routine Given 08/29/2022 2:52 PM EST 6 Units Given 08/29/2022 12:30 PM EST 6 Units Given 08/29/2022 8:31 AM EST 2 Units metoprolol succinate XL (Toprol-XL) tablet 100 mg 100 mg, Oral, DAILY, First dose on Sat08/29/22 at 0900, Until Discontinued, DO NOT CRUSH OR OPEN, Routine Given 08/29/2022 8:39 AM EST 100 mg pantoprazole EC (Protonix) tablet 20 mg 20 mg, Oral, DAILY, First dose on Sat08/29/22 at 0900, Until Discontinued, DO NOT CRUSH OR OPEN Given 08/29/2022 8:39 AM EST 20 mg pravastatin (Pravachol) tablet 20 mg 20 mg, Oral, 2 TIMES DAILY, First dose on Sat08/28/22 at 1700, Until Discontinued, Routine Given 08/29/2022 8:3 9 AM EST 20 mg Given 08/28/2022 5:03 PM EST 20 mg rivaroxaban (Xarelto) tablet 20 mg 20 mg, Oral, DAILY, First dose (after last reorder) on Sat08/29/22 at 0900, Until Discontinued, Routine, Restricted anticoagulant, choose the most appropriate response: Continuation of ongoing therapy Given 08/29/2022 8:40 AM EST 20 mg sodium chloride 0.9 % (flush) (BD PosiFlush Normal Saline 0.9) flush 5 mL 5 mL, Intravenous, 2 TIMES DAILY, First dose on Sat08/28/22 at 1415, Until Discontinued, Routine Given 08/29/2022 8:36 AM EST 5 mLs Given 08/28/2022 9:14 PM EST 5 mLs documented in this encounter Active and Recently Administered Medications Times are shown in EST. Scheduled Medication Order 08/27/2022 08/28/2022 08/29/2022 dofetilide (Tikosyn) capsule 500 mcg (CANCELED) 500 mcg, Oral, USER SPECIFIED (Irregular times on Sat), 10 doses, First dose on Sat08/28/22 at 1500, Last dose on Sat09/01/22 at 2100, Indication for dofetilide: persistent atrial fibrillation Baseline: Lead= II QTc= 460ms QTc measurement via monitor ECG prior to first dose and 2 to 3 hours after each of the first 5 doses. Document in comments section of MAR associated with dose. If QTc increased by greater than 25% over baseline or greater than 550 milliseconds after FIRST dose, notify MD for possible dose adjustment. Continuous ECG monitoring for minimum of 3 days after initiation of dofetilide or 12 hours after conversion to sinus rhythm, whichever is longer If QTc greater than 550 milliseconds any time after SECOND dose, discontinue dofetilide and notify MD. No concomitant use of cimetidine, trimethoprim (alone or in combination with sulfamethoxazole), ketoconazole, prochlorperazine, megestrol, verapamil, itraconazole, hydroCHLOROthiazide, vardenafil, fluvoxaMINE, FLUoxetine other antiarrhythmic drugs, or drugs that prolong QT. Presence of metFORMIN, macrolide antibiotics, azole anti fungal agents, protease inhibitors, AMIOdarone, dilTIAZem, grapefruit juice, nefazodone, norfloxacin, quiNINE, zafrilukast (inhibitors of cytochrome F814-0E0) may increase dofetilide levels; consider decreasing the dose by 50%. Not or ( Category C) Potassium level greater than or equal 3.5 mg/dL, Magnesium greater than or equal 0.65 mmol/L, Creatinine clearance greater than or equal 20 mL/minute Baseline QTc less than or equal 480 milliseconds (500 milliseconds in patients with conduction delay), Routine, Please indicate the name of the EP Attending who authorized the use of Dofetilide: Approved by Curtis Arredondo MD 1500 (Given - Provider: Josselyn Bird RN) 0201 (Given - Provider: Ronak Borrego RN) glimepiride (Amaryl) tablet 4 mg 4 mg, Oral, 2 TIMES DAILY, First dose on Sat08/28/22 at 1700, Until Discontinued, Routine 1703 (Given - Provider: Josselyn Bird RN) 0840 (Given - Provider: Vilma Pickens RN) insulin detemir (Levemir) (100 unit/mL) subcutaneous injection vial 30 Units (CANCELED) 30 Units, Subcutaneous, 2 TIMES DAILY, First dose on Sat08/28/22 at 1700, Until Discontinued 170 (Given - Provider: Josselyn Bird RN) 0838 (Given - Provider: Vilma Pickens RN) insulin detemir (Levemir) (100 unit/mL) subcutaneous injection vial 35 Units 35 Units, Subcutaneous, 2 TIMES DAILY, First dose (after last modification) on Sat08/29/22 at 2100, Until Discontinued insulin lispro (HumaLOG;Admelog) (100 unit/mL) subcutaneous injection vial 1-6 Units (CANCELED) 1-6 Units, Subcutaneous, 3 TIMES DAILY BEFORE MEALS, First dose on Sat08/28/22 at 1630, Until Discontinued, CORRECTION BOLUS [1-6 Units] Moderate Sliding Scale (BG in mg/dL): Correction factor 20 (1 unit of insulin is expected to drop the glucose 20 mg/dL) BG 140 - 160 Give 1 unit BG 161 - 180 Give 2 units BG 181 - 200 Give 3 units BG 201 - 220 Give 4 units BG 221 - 240 Give 5 units BG greater than 240, give 6 units and recheck BG in 2 hours. - If recheck BG is LESS than 240, give no insulin and resume schedule. - If recheck BG is GREATER than 240, give 6 units and repeat BG in 2 hours (no more than 3 times) & call for new insulin orders. DO NOT hold if NPO, unless specifically directed to do so by written order. Per Blood Glucose Monitoring Policy, re-check a BG of > 240 mg/dL in 2 hours., Routine 170 (Given - Provider: Josselyn Bird RN) insulin lispro (HumaLOG;Admelog) (100 unit/mL) subcutaneous injection vial 1-6 Units(Linked Group 1) 1-6 Units, Subcutaneous, 4 TIMES DAILY BEFORE MEALS & NIGHTLY, First dose (after last modification) on Sat08/28/22 at 2100, Until Discontinued, CORRECTION BOLUS [1-6 Units] Moderate Sliding Scale (BG in mg/dL): Correction factor 20 (1 unit of insulin is expected to drop the glucose 20 mg/dL) BG 140 - 160 Give 1 unit BG 161 - 180 Give 2 units BG 181 - 200 Give 3 units BG 201 - 220 Give 4 units BG 221 - 240 Give 5 units BG greater than 240, give 6 units and recheck BG in 2 hours. - If recheck BG is LESS than 240, give no insulin and resume schedule. - If recheck BG is GREATER than 240, give 6 units and repeat BG in 2 hours (no more than 3 times) & call for new insulin orders. DO NOT hold if NPO, unless specifically directed to do so by written order. Per Blood Glucose Monitoring Policy, re-check a BG of > 240 mg/dL in 2 hours., Routine 2113 (Given - Provider: Ronak Borrego RN) 0831 (Given - Provider: Vilma Pickens RN)1230 (Given - Provider: Vilma Pickens RN)1452 (Given - Provider: Vilma Pickens RN) metoprolol succinate XL (Toprol-XL) tablet 100 mg 100 mg, Oral, DAILY, First dose on Sat08/29/22 at 0900, Until Discontinued, DO NOT CRUSH OR OPEN, Routine 0839 (Given - Provid er: Vilma Pickens RN) pantoprazole EC (Protonix) tablet 20 mg 20 mg, Oral, DAILY, First dose on Sat08/29/22 at 0900, Until Discontinued, DO NOT CRUSH OR OPEN 0839 (Given - Provid er: Vilma Pickens RN) pravastatin (Pravachol) tablet 20 mg 20 mg, Oral, 2 TIMES DAILY, First dose on Sat08/28/22 at 1700, Until Discontinued, Routine 1703 (Given - Provider: Josselyn Bird RN) 0839 (Given - Provider: Vilma Pickens RN) rivaroxaban (Xarelto) tablet 20 mg 20 mg, Oral, DAILY, First dose (after last reorder) on Sat08/29/22 at 0900, Until Discontinued, Routine, Restricted anticoagulant, choose the most appropriate response: Continuation of ongoing therapy 0840 (Given - Provid er: Vilma Pickens RN) sodium chloride 0.9 % (flush) (BD PosiFlush Normal Saline 0.9) flush 5 mL 5 mL, Intravenous, 2 TIMES DAILY, First dose on Sat08/28/22 at 1415, Until Discontinued, Routine 1415 (Not Given - Provider: Josselyn Bird RN - Reason: Contraindicated)2113 (Not Given - Provider: Ronak Borrego RN - Reason: See comment - Comment: only 1 IV) 0900 (Not Given - Provider: Vilma Pickens RN - Reason: Patient/family refused) sodium chloride 0.9 % (flush) (BD PosiFlush Normal Saline 0.9) flush 5 mL 5 mL, Intravenous, 2 TIMES DAILY, First dose on Sat08/28/22 at 1415, Until Discontinued, Routine 1415 (Not Given - Provider: Josselyn Bird RN - Reason: Contraindicated)2113 (Given - Provider: Ronak Borrego RN) 0836 (Given - Provider: Vilma Pickens RN) PRN Medication Order 08/27/2022 08/28/2022 08/29/2022 acetaminophen (Tylenol) tablet 650 mg 650 mg, Oral, EVERY 4 HOURS PRN, Starting on Sat08/28/22 at 1326, Until Sat08/29/22 at 1802, Pain, Headaches, Maximum dose of acetaminophen is 4000 mg from all sources in 24 hours. When ordered for pain, acetaminophen should be given even when other ordered pain medications are indicated. , Routine dextrose 10% infusion(Linked Group 2) 250 mL, at 1,000 mL/hr, Intravenous, EVERY 30 MIN PRN, Starting on Sat08/28/22 at 1346, Until Sat08/29/22 at 1802, For BG 50-70 mg/dL: Oral treatment preferred: If able to drink, give 120 mL Juice or Regular (not diet) soda OR If NPO, give 15 gram glucose 40% oral gel massaged into buccal mucosa OR if unconscious or uncooperative, give 25 gram (250 mL) Dextrose 10% IV over 15 minutes per protocol OR, if no IV access, 1 mg Glucagon IM. For BG less than 50 mg/dL: Oral treatment preferred: If able to drink, give 240 mL Juice or Regular (not diet) soda OR If NPO, give 30 gram glucose 40% oral gel massaged in buccal mucosa OR if unconscious or uncooperative, give 25 gram (250 mL) Dextrose 10% IV over 15 minutes per protocol OR, if no IV access, 1 mg Glucagon IM. Recheck BG in 30 minutes. May repeat juice/soda, gel, dextrose or glucagon once per episode. For persistent hypoglycemia, consider longer-acting treatment for the duration of the active insulin. glucagon (Glucagen) (1 mg/mL) injection solution 1 mg(Linked Group 2) 1 mg, Intramuscular, EVERY 30 MIN PRN, Starting on Sat08/28/22 at 1346, Until Sat08/29/22 at 1802, Low blood sugar, For BG 50-70 mg/dL: Oral treatment preferred: If able to drink, give 120 mL Juice or Regular (not diet) soda OR If NPO, give 15 gram glucose 40% oral gel massaged into buccal mucosa OR if unconscious or uncooperative, give 25 gram (250 mL) Dextrose 10% IV over 15 minutes per protocol OR, if no IV access, 1 mg Glucagon IM. For BG less than 50 mg/dL: Oral treatment preferred: If able to drink, give 240 mL Juice or Regular (not diet) soda OR If NPO, give 30 gram glucose 40% oral gel massaged in buccal mucosa OR if unconscious or uncooperative, give 25 gram (250 mL) Dextrose 10% IV over 15 minutes per protocol OR, if no IV access, 1 mg Glucagon IM. Recheck BG in 30 minutes. May repeat juice/soda, gel, dextrose or glucagon once per episode. For persistent hypoglycemia, consider longer-acting treatment for the duration of the active insulin., Routine glucose (Glutose) 40% oral geL(Linked Group 2) 15-30 g of glucose, Buccal, EVERY 30 MIN PRN, Starting on Sat08/28/22 at 1346, Until Sat08/29/22 at 1802, Low blood sugar, For BG 50-70 mg/dL: Oral treatment preferred: If able to drink, give 120 mL Juice or Regular (not diet) soda OR If NPO, give 15 gram glucose 40% oral gel massaged into buccal mucosa OR if unconscious or uncooperative, give 25 gram (250 mL) Dextrose 10% IV over 15 minutes per protocol OR, if no IV access, 1 mg Glucagon IM. For BG less than 50 mg/dL: Oral treatment preferred: If able to drink, give 240 mL Juice or Regular (not diet) soda OR If NPO, give 30 gram glucose 40% oral gel massaged in buccal mucosa OR if unconscious or uncooperative, give 25 gram (250 mL) Dextrose 10% IV over 15 minutes per protocol OR, if no IV access, 1 mg Glucagon IM. Recheck BG in 30 minutes. May repeat juice/soda, gel, dextrose or glucagon once per episode. For persistent hypoglycemia, consider longer-acting treatment for the duration of the active insulin. 1 tube of Glutose-15 contains 15 grams of glucose (net weight of tube = 37.5 grams.), Routine lidocaine (Xylocaine) 1% (10 mg/mL) injection 3 mg 3 mg (0.3 mL), Subcutaneous, ONCE PRN, 1 dose, Starting on Sat08/28/22 at 1326, Until Sat08/29/22 at 1802, for discomfort with PIV insertion, Routine nitroGLYcerin (Nitrostat) disintegrating tablet 0.4 mg 0.4 mg, Sublingual, EVERY 5 MIN PRN, Starting on Sat08/28/22 at 1326, Until Sat08/29/22 at 1802, Chest pain, May repeat every 5 minutes for a total of three doses. Notify provider if chest pain not relieved with nitroglycerin. Do not administer nitroglycerin if the patient has received or taken phosphodiesterase (PDE-5) inhibitors such as sildenafil, tadalafil or vardenafil within the last 24 to 72 hours., Routine sodium chloride 0.9 % (flush) (BD PosiFlush Normal Saline 0.9) flush 5-20 mL 5-20 mL, Intravenous, EVERY 1 MIN PRN, Starting on Sat08/28/22 at 1326, Until Sat08/29/22 at 1802, flush, Flush pertains to all indwelling lines. Flush per protocol found in the job aid using the link provided on this medication record., Routine sodium chloride 0.9 % (flush) (BD PosiFlush Normal Saline 0.9) flush 5-20 mL 5-20 mL, Intravenous, EVERY 1 MIN PRN, Starting on Sat08/28/22 at 1326, Until Sat08/29/22 at 1802, flush, Flush pertains to all indwelling lines. Flush per protocol found in the job aid using the link provided on this medication record., Routine Linked Groups Order Group 1: POCT Fingerstick Glucose (CANCELED) Routine, 4 TIMES DAILY BEFORE MEALS & AT BEDTIME, First occurrence on Sat08/28/22 at 2200, Until Specified, Consider choosing FOUR TIMES A DAY BEFORE MEALS AND AT BEDTIME as frequency for: Patients who have a good hypoglycemia awareness: -Patients who are eating meals during the day and sleeping at night -Patient who are otherwise stable And insulin lispro (HumaLOG;Admelog) (100 unit/mL) subcutaneous injection vial 1-6 UnitsJump to med 1-6 Units, Subcutaneous, 4 TIMES DAILY BEFORE MEALS & NIGHTLY, First dose (after last modification) on Sat08/28/22 at 2100, Until Discontinued, CORRECTION BOLUS [1-6 Units] Moderate Sliding Scale (BG in mg/dL): Correction factor 20 (1 unit of insulin is expected to drop the glucose 20 mg/dL) BG 140 - 160 Give 1 unit BG 161 - 180 Give 2 units BG 181 - 200 Give 3 units BG 201 - 220 Give 4 units BG 221 - 240 Give 5 units BG greater than 240, give 6 units and recheck BG in 2 hours. - If recheck BG is LESS than 240, give no insulin and resume schedule. - If recheck BG is GREATER than 240, give 6 units and repeat BG in 2 hours (no more than 3 times) & call for new insulin orders. DO NOT hold if NPO, unless specifically directed to do so by written order. Per Blood Glucose Monitoring Policy, re-check a BG of > 240 mg/dL in 2 hours., Routine Group 2: glucose (Glutose) 40% oral geLJump to med 15-30 g of glucose, Buccal, EVERY 30 MIN PRN, Starting on Sat08/28/22 at 1346, Until Sat08/29/22 at 1802, Low blood sugar, For BG 50-70 mg/dL: Oral treatment preferred: If able to drink, give 120 mL Juice or Regular (not diet) soda OR If NPO, give 15 gram glucose 40% oral gel massaged into buccal mucosa OR if unconscious or uncooperative, give 25 gram (250 mL) Dextrose 10% IV over 15 minutes per protocol OR, if no IV access, 1 mg Glucagon IM. For BG less than 50 mg/dL: Oral treatment preferred: If able to drink, give 240 mL Juice or Regular (not diet) soda OR If NPO, give 30 gram glucose 40% oral gel massaged in buccal mucosa OR if unconscious or uncooperative, give 25 gram (250 mL) Dextrose 10% IV over 15 minutes per protocol OR, if no IV access, 1 mg Glucagon IM. Recheck BG in 30 minutes. May repeat juice/soda, gel, dextrose or glucagon once per episode. For persistent hypoglycemia, consider longer-acting treatment for the duration of the active insulin. 1 tube of Glutose-15 contains 15 grams of glucose (net weight of tube = 37.5 grams.), Routine Or dextrose 10% infusionJump to med 250 mL, at 1,000 mL/hr, Intravenous, EVERY 30 MIN PRN, Starting on Sat08/28/22 at 1346, Until Sat08/29/22 at 1802, For BG 50-70 mg/dL: Oral treatment preferred: If able to drink, give 120 mL Juice or Regular (not diet) soda OR If NPO, give 15 gram glucose 40% oral gel massaged into buccal mucosa OR if unconscious or uncooperative, give 25 gram (250 mL) Dextrose 10% IV over 15 minutes per protocol OR, if no IV access, 1 mg Glucagon IM. For BG less than 50 mg/dL: Oral treatment preferred: If able to drink, give 240 mL Juice or Regular (not diet) soda OR If NPO, give 30 gram glucose 40% oral gel massaged in buccal mucosa OR if unconscious or uncooperative, give 25 gram (250 mL) Dextrose 10% IV over 15 minutes per protocol OR, if no IV access, 1 mg Glucagon IM. Recheck BG in 30 minutes. May repeat juice/soda, gel, dextrose or glucagon once per episode. For persistent hypoglycemia, consider longer-acting treatment for the duration of the active insulin. Or glucagon (Glucagen) (1 mg/mL) injection solution 1 mgJump to med 1 mg, Intramuscular, EVERY 30 MIN PRN, Starting on Sat08/28/22 at 1346, Until Sat08/29/22 at 1802, Low blood sugar, For BG 50-70 mg/dL: Oral treatment preferred: If able to drink, give 120 mL Juice or Regular (not diet) soda OR If NPO, give 15 gram glucose 40% oral gel massaged into buccal mucosa OR if unconscious or uncooperative, give 25 gram (250 mL) Dextrose 10% IV over 15 minutes per protocol OR, if no IV access, 1 mg Glucagon IM. For BG less than 50 mg/dL: Oral treatment preferred: If able to drink, give 240 mL Juice or Regular (not diet) soda OR If NPO, give 30 gram glucose 40% oral gel massaged in buccal mucosa OR if unconscious or uncooperative, give 25 gram (250 mL) Dextrose 10% IV over 15 minutes per protocol OR, if no IV access, 1 mg Glucagon IM. Recheck BG in 30 minutes. May repeat juice/soda, gel, dextrose or glucagon once per episode. For persistent hypoglycemia, consider longer-acting treatment for the duration of the active insulin., Routine documented in this encounter Care Teams Print Graphic Designer Relationship Specialty Start Date End Date Domenica Atkins APRN PCP - General Family Medicine 11/21/21 documented as of this encounter
--- OUTSIDE RECORDS SUMMARY | 2024-06-11 18:08 | XMS_ITS | Encounter Summary ---
Author Organization Count Includes [facility] Address [facility] [place] [address] Care Team Providers Care Window Machine Operator Name Role Phone Milly Domenica Padgett APRN Primary Care Provider [phone] Encounter Details Date Type Department Care Team (Late st Contact Info) Description 12/19/2022 Telephone Cardiology at [address] [place] [address] Curtis Arredondo MD [facility] [place] [address] Social History Tobacco Use Types Packs/Day Years [...] Telephone Encounter - Lalita Cisneros RN - 12/19/2022 9:26 AM EDT Called patient and let him know. * Telephone Encounter - Lalita Cisneros RN - 12/19/2022 7:49 AM EDT ----- Message from Curtis Arredondo MD sent at 12/18/2022 4:34 PM EDT ----- Regarding: RE: echo from [facility] Thanks - looks good. Can you let him know that there has been an improvement over prior and his LVEF is essentially normalised Rashid Haines ----- Message ----- From: Lalita Cisneros RN Sent: 12/18/2022 4:08 PM EDT To: Curtis Arredondo MD Subject: echo from [facility] Echo from [facility] has been scanned on this patient. Meron Mike documented in this encounter Plan of Treatment Upcoming Encounters Date Type Department Care Team (Late st Contact Info) Description 12/23/2024 3:30 PM EDT Office Visit Cardiology at [address] [place] [id number] Carlos Eduardo Quan, [facility] [place] [address] documented as of this encounter Visit Diagnoses Not on filedocumented in this encounter Care Teams Window Machine Operator Relationship Specialty Start Date End Date Domenica Atkins APRN PCP - General Family Medicine 11/21/21 documented as of this encounter
--- OUTSIDE RECORDS SUMMARY | 2024-06-11 18:08 | XMS_ITS | Encounter Summary ---
Author Organization [facility] Address [facility] [address] [place] [address] Care Team Providers Care Global Marketing Intern Name Role Phone Milly Domenica Padgett APRN Primary Care Provider [phone] Encounter Details Date Type Department Care Team (Latest Contact Info) Description 08/30/2022 Travel Social History Tobacco Use Types Packs/Day [...] place to sleep or slept in a residential (including now)? No 03/23/2022 Sex and Gender Information Value Date Recorded Sex Assigned at Not on file Gender Identity Not on file Sexual Orientation Not on file documented as of this encounter Plan of Treatment Upcoming Encounters Date Type Department Care Team (Late st Contact Info) Description 12/23/2024 3:30 PM EDT Office Visit Cardiology at [address] [place] [address] Carlos Eduardo Quan PA [facility] [place] [address] documented as of this encounter Visit Diagnoses Not on filedocumented in this encounter Care Teams Global Marketing Intern Relationship Specialty Start Date End Date Domenica Atkins APRN PCP - General Family Medicine 11/21/21 documented as of this encounter
--- OUTSIDE RECORDS SUMMARY | 2024-06-11 18:08 | XMS_ITS | Encounter Summary ---
[place] [address] Care Team Providers Care Document Management Specialist Name Role Phone Milly Domenica Padgett APRN Primary Care Provider [phone] Encounter Details Date Type Department Care Team (Late st Contact Info) Description 10/23/2022 Telephone Cardiology at [address] [phone] Domenica Nicole RN Social History Tobacco Use Types Packs/Day [...] encounter Miscellaneous Notes * Telephone Encounter - Domenica Nicole RN - 10/23/2022 1:24 PM EST RTC to [facility] and advised via vm that pt was discontinued off Digoxin on 08/29/22 per chart records. Pt started Amiodarone on or after 09/02/22. Requested call back with any questions. documented in this encounter Plan of Treatment Upcoming Encounters Date Type Department Care Team (Late st Contact Info) Description 12/23/2024 3:30 PM EDT Office Visit Cardiology at [address] [place] [address] Carlos Eduardo Quan, [facility] [place] [address] documented as of this encounter Visit Diagnoses Not on filedocumented in this encounter Care Teams Document Management Specialist Relationship Specialty Start Date End Date Domenica Atkins APRN PCP - General Family Medicine 11/21/21 documented as of this encounter
--- OUTSIDE RECORDS SUMMARY | 2024-06-11 18:08 | XMS_ITS | Encounter Summary ---
Author Organization [facility] Address [facility] [place] [address] Care Team Providers Care Deodorizer Operator Name Role Phone Milly Domenica Dayron AGUILAR Primary Care Provider [phone] Encounter Details Date Type Department Care Team (Late st Contact Info) Description 08/07/2022 Orders Only Cardiology at [address] [address] Brandon Mohr PA [facility] [place] [address] Persistent atrial fibrillation Social History Tobacco Use [...] place to sleep or slept in a prison (including now)? No 03/23/2022 Sex and Gender Information Value Date Recorded Sex Assigned at Not on file Gender Identity Not on file Sexual Orientation Not on file documented as of this encounter Plan of Treatment Upcoming Encounters Date Type Department Care Team (Late st Contact Info) Description 12/23/2024 3:30 PM EDT Office Visit Cardiology at [address] [address] Carlos Eduardo Quan PA [facility] [place] [address] documented as of this encounter Results * EKG 12 Lead (08/28/2022 11:18 AM EST) Ventricular rate 80 BPM MUSE SYSTEM QRS Duration 88 ms MUSE SYSTEM Q-T Interval 400 ms MUSE SYSTEM QTC Calculated (Bezet) 461 ms MUSE SYSTEM Calculated R [place] -15 degrees MUSE SYSTEM Calculated T [place] -8 degrees MUSE SYSTEM INTERPRETATION Atrial fibrillation with premature ventricular or aberrantly conducted complexes Inferior infarct (cited on or before 10-JAN-2022) Abnormal ECG When compared with ECG of 11-JUL-2022 14:11, No significant change was found Confirmed by Md Duc, Irina ([id number]) on 08/29/2022 7:55:40 AM MUSE SYSTEM 08/28/2022 11:1 8 AM EST 08/29/2022 7:55 AM EST Connor Charles MD ECG ORDERABLES MUSE SYSTEM * Magnesium (08/28/2022 10:37 AM EST) Magnesium 0.84 0.69 - 1.07 mmol/L [facility] Blood 08/28/2022 10:3 7 AM EST 08/28/2022 10:50 AM EST Narrative Resulting Agency Comment Spec In Lab Connor Charles MD CHEMISTRY ORDERABLES [facility] [place] [address] * (ABNORMAL) Basic Metabolic Panel (non-fasting) (08/28/2022 10:37 AM EST) Glucose 274(H) 65 - 199 mg/dL [facility] Comment:Diabetes: >=200 mg/d L plus symptoms Blood Urea Nitrogen 19 10 - 20 mg/dL [facility] Creatinine 1.03 0.80 - 1.50 mg/dL [facility] Sodium 140 135 - 145 mmol/L [facility] Potassium 5.2(H) 3.5 - 5.0 mmol/L [facility] Comment: Please note: ??Patients with WBC >100,000 may have falsely elevated Potassium levels. ??For accurate Potassium quantification in these patients send serum separator tube (gold top) for subsequent determinations. ??Contact the Clinical Chemistry Laboratory if there are any questions. Chloride 104 98 - 107 mmol/L [facility] Carbon Dioxide 28 22 - 31 mmol/L [facility] Anion Gap 8 5 - 15 mmol/L [facility] Calcium 9.9 8.5 - 10.5 mg/dL [facility] Est Glomerular Filtration Rate 77 >=60 mL/min/1. 73 m?? [facility] Comment: This patient's estimated GFR was [...] and symptoms in addition to eGFR. Blood 08/28/2022 10:3 7 AM EST 08/28/2022 10:50 AM EST Narrative Resulting Agency Comment Spec In Lab Connor Charles MD CHEMISTRY ORDERABLES Performing Organization Address City/State/[facility] Co de Phone Number [facility] [place] [address] documented in this encounter Visit Diagnoses Diagnosis Persistent atrial fibrillation Atrial fibrillation documented in this encounter Care Teams Deodorizer Operator Relationship Specialty Start Date End Date Domenica Atkins APRN PCP - General Family Medicine 11/21/21 documented as of this encounter
--- OUTSIDE RECORDS SUMMARY | 2024-06-11 18:08 | XMS_ITS | Encounter Summary ---
Author Organization [facility] [place] [address] Care Team Providers Care Value Stream Leader Name Role Phone Milly Domenica Padgett APRN Primary Care Provider [phone] Reason for Visit * Reason Comments Atrial Fibrillation Encounter Details Date Type Department Care Team (Latest Contact Info) Description 05/15/2023 1:40 PM EDT Office Visit Cardiology at [address] [address] Curtis Arredondo MD [facility] [place] [address] joint terminal attack controller current use of antiarrhythmic drug Social History [...] place to sleep or slept in a correction (including now)? No 03/23/2022 Sex and Gender Information Value Date Recorded Sex Assigned at Not on file Gender Identity Not on file Sexual Orientation Not on file documented as of this encounter Last Filed Vital Signs Vital Sign Reading Time Taken Comments Blood Pressure 128/68 05/15/2023 1:45 PM EDT Pulse 54 05/15/2023 1:45 PM EDT per e cg Temperature - - Respiratory Rate - - Oxygen Saturation - - Inhaled Oxygen Concentration - - Weight 112 kg (247 lb) 05/15/2023 1:45 PM EDT Height 177.8 cm (5' 10) 05/15/2023 1:45 PM EDT Body Mass Index 35.44 05/15/2023 1:45 PM EDT documented in this encounter Progress Notes * Curtis Arredondo MD - 05/15/2023 1:40 PM EDT Images from the original note were not included. Section of Cardiology/Cardiac Electrophysiology Clinical Cardiac Electrophysiology Follow Up Patient ID Wilber Shell 1950 [id number] Wilber Shell is following up in EP clinic Chief Complaint Fatigue, cardiomyopathy, atrial arrhythmias h/o Atrial flutter ablation History This is a 73 y.o. male following up/being seen in clinic for atrial arrhythmias - he was last seen in the EP clinic by myself in September of this year. From that visit '..he was recently an inpatient for EPS - [...] follow up at the EP clinic in [place],he was in AF/RVR - plans were made [...] and on rate control...' In October of this year, he was on 200 mg a day of amiodarone and feeling well. 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 Amiodarone surveillance labs were done in October of this year He had been experiencing pain in the back for about 4 years, this year it turned out to be a gall-bladder - this was in about March of this year. He feels well, but is a little short of breath with exertion. He can climb one flight of stairs. He is able to exercise / light physical activity - he feels OK with this. No awareness of irregular rhythm - usually when he checks his BP he can check for arrythmias, the BP cuff rarely indicates a rhythm problem Problem List Patient Active Problem List Diagnosis [...] Current Outpatient Medications Medication Sig Dispense Refill dapagliflozin (Farxiga) 10 mg Tablet Take 10 mg by mouth daily. AMIOdarone (Paceron) 200 mg Tablet Take 1 tablet by mouth daily. 90 tablet 1 metFORMIN (Glucophage) 1,000 mg Tablet Take 1 tablet by mouth 2 times daily (with meals). 60 tablet terbinafine HCL (LamISIL) 1 % Cream Apply topically as needed. insulin needles, disposable, 29 gauge x 1/[address] [facility]Non-Drug; Combo Route) route daily. 31Gx1/4 metoprolol succinate XL (Toprol-XL) 100 mg Tablet Sustained Release 24 hr Take 1 tablet by mouth daily. 90 tablet 3 rivaroxaban (Xarelto) 20 mg Tablet Take 1 tablet by mouth daily. 90 tablet 3 omega-3 acid ethyl esters (Lovaza) 1 gram Capsule Take 2 g by mouth 2 times daily. insulin detemir U-100 (Levemir) 100 unit/mL (3 mL) Insulin Pen Inject subcutaneously 2 times daily.45 units in am and 40 units at bedtime lactobacillus rhamnosus, GG, (CULTURELLE) 10 billion cell Capsule Take 1 capsule by mouth daily. glimepiride (AMARYL) 4 mg Tablet Take 4 mg by mouth 2 times daily. pravastatin (Pravachol) 20 mg Tablet Take 20 mg by mouth daily. multivitamin (THERAGRAN) Tablet Take 1 tablet by mouth daily. potassium citrate SR (Urocit) 10 mEq (1,080 mg) Tablet Sustained Release Take 40 mEq by mouth daily. omeprazole (PriLOSEC) 20 mg Capsule, Delayed Release(E.C.) Take 20 mg by mouth daily as needed. sildenafiL (VIAGRA) 50 mg Tablet Take 50 mg by mouth as needed for Erectile Dysfunction. SIMETHICONE ORAL Take by mouth as needed. No current facility-administered medications for this visit. Social History Social History Socioeconomic History Marital status: Spouse name: Not on file Number of children: Not on file Years of education: Not on file Highest education level: Not on file Occupational History Not on file Tobacco Use Smoking status: Never Smokeless tobacco: Never Vaping Use Vaping Use: Never used Substance and Sexual Activity Alcohol use: Not Currently Drug use: Never Sexual activity: Not Currently Other Topics Concern Not on file Social History Narrative Not on file Social Determinants of Health Financial Resource Strain: Not on file Food Insecurity: Not on file Transportation Needs: Not on file Physical Activity: Not on file Housing Stability: Not on file Family History No family history on file. Exam Patient Vitals for the past 24 hrs: Pulse BP 05/15/23 1345 54 128/68 Physical Exam Constitutional: Comments: Body mass index is 35.44 kg/m??. HENT: Mouth/Throat: Pharynx: No oropharyngeal exudate. Cardiovascular: Rate and Rhythm: Normal rate. Rhythm irregular. Pulses: Normal pulses. Pulmonary: Effort: Pulmonary effort is normal. Skin: General: Skin is warm. Neurological: General: No focal deficit present. Mental Status: He is alert. I have personally reviewed the ECG: sinus bradycardia 54 bpm, WA 180ms, QRS 80ms, QT 500ms Impression Wilber [...] started on amiodarone in September of 2022. From the perspective of atrial arrhythmias, he appears to be doing quite well on the low-dose of amiodarone. He appears to have had a minor setback in his exercise capacity since he had his gallbladder surgery, however this appears to be improving. He is in sinus bradycardia today in clinic, we discussed the idea of continuing amiodarone at current dose, reducing the dose, or even consideration for EPS ablation of atrial fibrillation. His preference is to not rock the boat, I think this is reasonable, will continue with current dose of amiodarone. I ordered amiodarone screening labs, he should have an annual eye exam also. Recommendations / Plan A) No changes to meds B) TSH/LFT ordered for amiodarone surveillance C) Follow up in 6 months - may consider a drop in amiodarone dose at that time CURTIS ARREDONDO MD Cardiac Electrophysiology [facility] T: [phone] F: [phone] 15 minutes of this 20 minute encounter [...] 3:30 PM EDT Office Visit Cardiology at [address] [place] [address] Carlos Eduardo Quan PA [facility] [place] [address] Scheduled Orders Name Type Priority Associated Diagnoses Orde r Schedule Basic Metabolic Panel (non-fasting) Lab Routine residential current use of antiarrhythmic drug Expected: 05/15/2023, Expires: 05/14/2024 TSH Lab Routine joint terminal attack controller current use of antiarrhythmic drug Expected: 05/15/2023, Expires: 05/14/2024 Hepatic Function Panel Lab Routine residential current use of antiarrhythmic drug Expected: 05/15/2023, Expires: 05/14/2024 documented as of this encounter Visit Diagnoses Diagnosis joint terminal attack controller current use of antiarrhythmic drug documented in this encounter Care Teams Value Stream Leader Relationship Specialty Start Date End Date Domenica Atkins APRN PCP - General Family Medicine 11/21/21 documented as of this encounter
--- OUTSIDE RECORDS SUMMARY | 2024-06-11 18:08 | XMS_ITS | Encounter Summary ---
Author Organization [facility] Address [facility] [place] [address] Care Team Providers Care Ore Dryer Name Role Phone Milly Domenica Padgett APRN Primary Care Provider [phone] Encounter Details Date Type Department Care Team (Latest Contact Info) Description 11/13/2023 Travel Social History Tobacco Use Types Packs/Day [...] 3:30 PM EDT Office Visit Cardiology at [address] [place] [address] Carlos Eduardo Quan PA [facility] [place] [address] documented as of this encounter Visit Diagnoses Not on filedocumented in this encounter Care Teams Ore Dryer Relationship Specialty Start Date End Date Domenica Atkins APRN PCP - General Family Medicine 11/21/21 documented as of this encounter
--- OUTSIDE RECORDS SUMMARY | 2024-06-11 18:08 | XMS_ITS | Encounter Summary ---
Author Organization [facility] Address [facility] [place] [address] Care Team Providers Care Lead Material Handler Name Role Phone Milly Domenica Padgett APRN Primary Care Provider [phone] Encounter Details Date Type Department Care Team (Latest Contact Info) Description 07/19/2022 10:00 AM EST Ext Surgery or Single Event [facility] [address] [facility] [place] [address] Everett Galvan MD [facility] [place] [address] Persistent atrial fibrillation Social History Tobacco Use [...] as of this encounter Progress Notes * Everett Galvan MD - 07/19/2022 10:00 AM EST Direct Current Cardioversion Procedure Note Patient Name: Wilber Shell : [id number] Date of Procedure: 07/19/2022 Time of Procedure: 0900h Attending: Everett Galvan MD Confirmation of 100% compliance with oral anti-coagulation for at least 3 weeks leading up to today, without bleeding issues, was made prior to proceeding. After obtaining informed consent, the patient underwent direct current cardioversion using the biphasic device under brief general anesthesia provided by the anesthesia team. The electrode pads were placed in the following position: Right anterior, left scapular The patient received 1 synchronized discharge(s) and the maximal discharge at 200 joules. Normal Sinus Rhythm was restored successfully: Yes, but with early relapse Complications: None Initial rhythm post cardioversion was sinus rhythm. Within the first couple minutes, patient went in to 2:1 atrial flutter at a rate of 133 bpm. As a new set of pads were being placed, he converted back to atrial fibrillation at a controlled rate (80-100). Because of this, decision made to not repeat cardioversion Everett Galvan MD documented in this encounter Plan of Treatment Upcoming Encounters Date Type Department Care Team (Late st Contact Info) Description 12/23/2024 3:30 PM EDT Office Visit Cardiology at [address] [place] [address] Carlos Eduardo Quan, [facility] [place] [address] documented as of this encounter Procedures Procedure Name Priority Date/Time Associated Diagnosis Comments ECG SCAN 07/19/2022 12:00 AM EST documented in this encounter Results * SCAN DOC: ECG (07/19/2022 12:00 AM EST) Narrative 07/19/2022 12:00 AM EST Ordered by an unspecified provider. Scanning Provider MEDIA MGR SCAN EXT O RDR/RSLT documented in this encounter Visit Diagnoses Diagnosis Persistent atrial fibrillation Atrial fibrillation documented in this encounter Care Teams Lead Material Handler Relationship Specialty Start Date End Date Domenica Atkins APRN PCP - General Family Medicine 11/21/21 documented as of this encounter
--- OUTSIDE RECORDS SUMMARY | 2024-06-11 18:08 | XMS_ITS | Encounter Summary ---
Author Organization [facility] [place] [address] Care Team Providers Care Orthotic And Prosthetic Technician Name Role Phone Milly Domenica Padgett APRN Primary Care Provider [phone] Reason for Visit * Reason Comments Atrial Fibrillation Encounter Details Date Type Department Care Team (Late st Contact Info) Description 11/13/2023 2:00 PM EDT Office Visit Cardiology at [address] [address] Curtis Arredondo MD [facility] [place] [address] Persistent atrial fibrillation Social History Tobacco Use [...] place to sleep or slept in a chcf (including now)? No 03/23/2022 Sex and Gender Information Value Date Recorded Sex Assigned at Not on file Gender Identity Not on file Sexual Orientation Not on file documented as of this encounter Last Filed Vital Signs Vital Sign Reading Time Taken Comments Blood Pressure 116/66 11/13/2023 2:30 PM EDT Pulse 46 11/13/2023 2:30 PM EDT per e cg Temperature - - Respiratory Rate - - Oxygen Saturation - - Inhaled Oxygen Concentration - - Weight 110.7 kg (244 lb) 11/13/2023 2:30 PM EDT Height 177.8 cm (5' 10) 11/13/2023 2:30 PM EDT Body Mass Index 35.01 11/13/2023 2:30 PM EDT documented in this encounter Progress Notes * Curtis Arredondo MD - 11/13/2023 2:00 PM EDT Images from the original note were not included. Section of Cardiology/Cardiac Electrophysiology Clinical Cardiac Electrophysiology Follow Up Patient ID Wilber Shell 1950 [id number] Wilber Shell is following up in EP [...] follow up at the EP clinic in [place],he was in AF/RVR - plans were made [...] LA was noted. No episodes of AF/Afl He remains active - physically active. No aerobic activities. No lightheadedness, dizziness or syncope. No chest pain. No heart failure symptoms (no edema, PND, orthopnea) Weight stable Problem List Patient Active Problem List Diagnosis [...] Medications Medication Sig Dispense Refill AMIOdarone (Pacerone) 100 mg tablet Take 100 mg by mouth daily. doxepin (SINEquan) 10 mg capsule Take 10 mg by mouth nightly. zolpidem (Ambien) 10 mg tablet Take 10 mg by mouth nightly as needed for Sleep. clotrimazole-betamethasone (Lotrisone) 1-0.05 % Cream Apply 1 each topically 2 times daily as needed. canagliflozin (Invokana) 100 mg tablet Take 100 mg by mouth daily. metFORMIN (Glucophage) 1,000 mg Tablet Take 1 tablet by mouth 2 times daily (with meals). 60 tablet terbinafine HCL (LamISIL) 1 % Cream Apply topically as needed. insulin needles, disposable, 29 gauge x 1/2 Needle 31 g by [facility].(Non-Drug; Combo Route) route daily. 31Gx1/4 metoprolol succinate XL (Toprol-XL) 100 mg Tablet Sustained Release 24 hr Take 1 tablet by mouth daily. 90 tablet 3 rivaroxaban (Xarelto) 20 mg Tablet Take 1 tablet by mouth daily. 90 tablet 3 insulin detemir U-100 (Levemir) 100 unit/mL (3 mL) Insulin Pen Inject 15 Units subcutaneously 2 times daily. glimepiride (AMARYL) [...] for the past 24 hrs: Pulse BP 11/13/23 1430 (!) 46 116/66 Physical Exam Constitutional: Comments: Body mass index is 35.44 kg/m??. HENT: Mouth/Throat: Pharynx: No oropharyngeal exudate. Cardiovascular: Rate and Rhythm: Normal rate. Rhythm irregular. Pulses: Normal pulses. Pulmonary: Effort: Pulmonary effort is normal. Skin: General: Skin is warm. Neurological: General: No focal deficit present. Mental Status: He is alert. I have personally reviewed the ECG: sinus bradycardia 54 bpm, MS 180ms, QRS 80ms, QT 500ms Impression Wibler Shell is seen in the EP clinic [...] started on amiodarone in September of 2022. He is currently on a very low dose at 100 mg amiodarone daily, and prefers to keep with this dose. He has been doing well since then on low dose amiodarone I dropped the dose of his metoprolol to 50 mg today (bradycardia and relatively low SBP) Recommendations / Plan A) No changes to meds B) TSH/LFT ordered for amiodarone surveillance; advised re skin protection, eye exam C) Follow up in 6 months CURTSI ARREDONDO MD Cardiac Electrophysiology [facility] T: [phone] F: [phone] 15 minutes of this 20 minute encounter [...] 3:30 PM EDT Office Visit Cardiology at [address] [place] [address] Carlos Eduardo Quan, [facility] [place] [address] Scheduled Orders Name Type Priority Associated Diagnoses Orde r Schedule TSH Lab Routine Persistent atrial fibrillation Expected: 11/13/2023, Expires: 11/12/2024 Hepatic Function Panel Lab Routine Persistent atrial fibrillation Expected: 11/13/2023, Expires: 11/12/2024 documented as of this encounter Visit Diagnoses Diagnosis Persistent atrial fibrillation Atrial fibrillation documented in this encounter Care Teams Orthotic And Prosthetic Technician Relationship Specialty Start Date End Date Domenica Atkins APRN PCP - General Family Medicine 11/21/21 documented as of this encounter
--- OUTSIDE RECORDS SUMMARY | 2024-06-11 18:08 | XMS_ITS | Encounter Summary ---
Author Organization [facility] Address [facility] [place] [address] Care Team Providers Care Credit Checker Name Role Phone Milly Domenica Padgett APRN Primary Care Provider [phone] Encounter Details Date Type Department Care Team (Latest Contact Info) Description 10/02/2022 Travel Social History Tobacco Use Types Packs/Day [...] place to sleep or slept in a assisted (including now)? No 03/23/2022 Sex and Gender Information Value Date Recorded Sex Assigned at Not on file Gender Identity Not on file Sexual Orientation Not on file documented as of this encounter Plan of Treatment Upcoming Encounters Date Type Department Care Team (Late st Contact Info) Description 12/23/2024 3:30 PM EDT Office Visit Cardiology at [address] [place] [address] Carlos Eduardo Quan PA [facility] [place] [address] documented as of this encounter Visit Diagnoses Not on filedocumented in this encounter Care Teams Credit Checker Relationship Specialty Start Date End Date Domenica Atkins APRN PCP - General Family Medicine 11/21/21 documented as of this encounter
--- OUTSIDE RECORDS SUMMARY | 2024-06-11 18:08 | XMS_ITS | Encounter Summary ---
[place] [address] Care Team Providers Care Pill Maker Name Role Phone Milly Domenica Padgett APRN Primary Care Provider [phone] Encounter Details Date Type Department Care Team (Latest Contact Info) Description 03/23/2022 9:00 AM EDT - 03/23/2022 11:59 PM EDT Hospital Encounter Hematology [place] [phone] Drug-induced ITP Discharge Disposition: Home Social History Tobacco Use [...] on file documented as of this encounter Medications at Time of Discharge Medication Sig Dispensed Refills Start Date End Date metoprolol succinate XL (Toprol-XL) 100 mg Tablet [...] by mouth as needed for Erectile Dysfunction. digoxin (Lanoxin) 125 mcg (0.125 mg) TabletIndications:sepideh tricular rate control in atrial fibrillation Take 1 tablet by mouth daily for 90 days. Indications: ventricular rate control in atrial fibrillation 90 tablet 03/13/2022 06/11/2022 omega-3 acid ethyl esters (Lovaza) 1 gram Capsule Take 2 g by mouth 2 times daily. 11/13/2023 lactobacillus rhamnosus, GG, (CULTURELLE) 10 billion cell Capsule Take 1 capsule by mouth daily. 05/15/2023 metFORMIN (GLUCOPHAGE) 1,000 mg Tablet Take 1,000 mg by mouth 2 times daily (with meals). 08/28/2022 multivitamin (THERAGRAN) Tablet Take 1 tablet by mouth daily. 11/13/2023 SIMETHICONE ORAL Take by mouth as needed. 05/15/2023 Psyllium Seed-Sucrose (0) Powder Take by mouth daily. 023 documented as of this encounter Plan of Treatment Upcoming Encounters Date Type Department Care Team (Late st Contact Info) Description 12/23/2024 3:30 PM EDT Office Visit Cardiology at [address] [place] [address] Carlos Eduardo Quan, [facility] [place] [address] documented as of this encounter Procedures Procedure Name Priority Date/Time Associated Diagnosis Comments HEMOGRAM Routine 03/23/2022 9:06 AM EDT Drug-induced ITP DIFFERENTIAL, AUTOMATED Routine 03/23/2022 9:06 AM EDT Drug-induced ITP HC CBC,PLT & AUTO DIFF Routine 03/23/2022 9:06 AM EDT Drug-induced ITP HC VENIPUNCTURE Routine 03/23/2022 9:06 AM EDT Drug-induced ITP documented in this encounter Results * (ABNORMAL) Differential, Automated (03/23/2022 9:06 AM EDT) Neutrophil % 69.7 % [facility] Neutrophil Absolute 7.51(H) 1.70 - 6.10 x10(3)/mc L [facility] Lymph % 16.1 % [facility] Lymphocytes Abs 1.7 0.9 - 3.2 x10(3)/mc L [facility] Monocyte % 10.8 % [facility] Monocyte Abs 1.2(H) 0.3 - 0.9 x10(3)/mc L [facility] Eos % 1.9 % [facility] Eosinophils Abs 0.2 0.0 - 0.4 x10(3)/ L [facility] Basophil % 0.7 % [facility] Baso Absolute 0.1 0.0 - 0.1 x10(3)/ L [facility] Immature Gran % 0.80 % [facility] Comment: Immature granulocytes(IG's)percentage and absolute count will include metamyelocytes, myelocytes, and promyelocytes. Blood smears from CBCs yielding IG's will be scanned manually for concordance. If this scan disagrees with the automated IG or if promyelocytes are noted, a manual differential will be performed. Immature Gran Absolute 0.09(H) 0.00 - 0.04 x10(3)/[facility] Blood 03/23/2022 9:06 AM EDT 03/23/2022 9:22 AM EDT Narrative Resulting Agency Comment Spec In Lab Malik Garcia MD HEMATOLOGY ORDERABLE S Performing Organization Address City/State/[facility] Co de Phone Number [facility] [place] [address] * (ABNORMAL) Hemogram (03/23/2022 9:06 AM EDT) White Blood Cell 10.8(H) 4.0 - 9.5 x10(3)/ L [facility] Red Blood Cell 4.41(L) 4.58 - 5.54 x10(6)/mc L [facility] Hemoglobin 13.8 13.7 - 16.5 g/dL [facility] Hematocrit 40.8 40.5 - 48.5 % [facility] Mean Cell Volume 92.5 82.9 - 93.1 fL [facility] Mean Cell Hemoglobin 31.3 27.5 - 32.1 pg [facility] Mean Cell Hemoglobin Concentration 33.8 32.0 - 35.7 g/dL [facility] Platelet 95(L) 145 - 357 x10(3)/mc L [facility] RDW Standard Deviation 47.0(H) 36.0 - 45.0 fL [facility] RDW coefficient of variation 13.8 11.4 - 13.8 % [facility] Mean Platelet Volume 11.6 7.6 - 12.9 fL [facility] NRBC% auto 0.0 % [facility] NRBC Absolute 0.000 0.000 - 0.000 x10(3)/mc L [facility] Blood 03/23/2022 9:06 AM EDT 03/23/2022 9:22 AM EDT Narrative Resulting Agency Comment Spec In Lab Malik Garcia MD HEMATOLOGY ORDERABLE S [facility] [place] [address] * Comprehensive metabolic panel (non-fasting) (03/23/2022 9:06 AM EDT) Glucose 172 65 - 199 mg/dL [facility] Comment:Diabetes: >=200 mg/d L plus symptoms Blood Urea Nitrogen 15 10 - 20 mg/dL [facility] Creatinine 0.93 0.80 - 1.50 mg/dL [facility] Sodium 138 135 - 145 mmol/L [facility] Potassium 4.2 3.5 - 5.0 mmol/L [facility] Comment: Please note: ??Patients with WBC >100,000 may have falsely elevated Potassium levels. ??For accurate Potassium quantification in these patients send serum separator tube (gold top) for subsequent determinations. ??Contact the Clinical Chemistry Laboratory if there are any questions. Chloride 102 98 - 107 mmol/L [facility] Carbon Dioxide 27 22 - 31 mmol/L [facility] Anion Gap 9 5 - 15 mmol/L [facility] Calcium 9.2 8.5 - 10.5 mg/dL [facility] Protein, Total 6.9 6.1 - 8.0 g/dL [facility] Albumin 4.1 3.2 - 5.2 g/dL [facility] Aspartate Aminotransferase 20 0 - 39 unit/L [facility] Alanine Aminotransferase 25 0 - 55 unit/L [facility] Alkaline Phosphatase 70 40 - 130 unit/L [facility] Bilirubin, Total 0.7 0.2 - 1.3 mg/dL [facility] Est Glomerular Filtration Rate 87 >=60 mL/min/1. 73 m?? [facility] Comment: This patient's estimated GFR [...] and symptoms in addition to eGFR. Blood 03/23/2022 9:06 AM EDT 03/23/2022 9:22 AM EDT Narrative Resulting Agency Comment Spec In Lab Porfirio Musa MD CHEMISTRY ORDERA BLES [facility] [place] [address] documented in this encounter Visit Diagnoses Diagnosis Drug-induced ITP Other secondary thrombocytopenia documented in this encounter Care Teams Pill Maker Relationship Specialty Start Date End Date Domenica Atkins APRN PCP - General Family Medicine 11/21/21 documented as of this encounter
--- OUTSIDE RECORDS SUMMARY | 2024-06-11 18:08 | XMS_ITS | Encounter Summary ---
Author Organization [facility] Address [facility] [place] [address] Care Team Providers Care Bleach Liquor Maker Name Role Phone Milly Domenica Padgett APRN Primary Care Provider [phone] Encounter Details Date Type Department Care Team (Latest Contact Info) Description 08/28/2022 Travel Social History Tobacco Use Types Packs/Day [...] place to sleep or slept in a fci (including now)? No 03/23/2022 Sex and Gender Information Value Date Recorded Sex Assigned at Not on file Gender Identity Not on file Sexual Orientation Not on file documented as of this encounter Plan of Treatment Upcoming Encounters Date Type Department Care Team (Late st Contact Info) Description 12/23/2024 3:30 PM EDT Office Visit Cardiology at [address] [address] [facility] [place] [address] documented as of this encounter Visit Diagnoses Not on filedocumented in this encounter Care Teams Bleach Liquor Maker Relationship Specialty Start Date End Date Domenica Atkins APRN PCP - General Family Medicine 11/21/21 documented as of this encounter
--- OUTSIDE RECORDS SUMMARY | 2024-06-11 18:08 | XMS_ITS | Encounter Summary ---
Author Organization [facility] [place] [address] Care Team Providers Care Skin Fitter Name Role Phone Milly Domenica Padgett APRN Primary Care Provider [phone] Encounter Details Date Type Department Care Team (Late st Contact Info) Description 12/25/2022 External Results Cardiology at [address] [place] [address] Lalita Cisneros RN Social History [...] 3:30 PM EDT Office Visit Cardiology at [address] [place] [address] Carlos Eduardo Quan PA [facility] [place] [address] documented as of this encounter Procedures Procedure Name Priority Date/Time Associated Diagnosis Comments EXTERNAL LAB RESULTS Routine 11/20/2022 documented in this encounter Results * External Lab Results (11/20/2022) Protein, Total 7.4 Albumin 4.0 Alkaline Phosphatase 80 Aspartate Aminotransferase 17 Alanine Aminotransferase 24 Thyroid Stimulating Hormone 4.99 Bilirubin, Total 0.6 Historical Provider CHEMISTRY ORDERAB LES documented in this encounter Visit Diagnoses Not on filedocumented in this encounter Care Teams Skin Fitter Relationship Specialty Start Date End Date Domenica Atkins APRN PCP - General Family Medicine 11/21/21 documented as of this encounter
--- OUTSIDE RECORDS SUMMARY | 2024-06-11 18:08 | XMS_ITS | Encounter Summary ---
[place] [address] Care Team Providers Care Ticket Sales Supervisor Name Role Phone Milly Domenica Padgett APRN Primary Care Provider [phone] Encounter Details Date Type Department Care Team (Late st Contact Info) Description 10/15/2022 Telephone Cardiology at [address] [phone] Domenica Nicole RN Social History Tobacco Use [...] place to sleep or slept in a senior care (including now)? No 03/23/2022 Sex and Gender Information Value Date Recorded Sex Assigned at Not on file Gender Identity Not on file Sexual Orientation Not on file documented as of this encounter Plan of Treatment Upcoming Encounters Date Type Department Care Team (Late st Contact Info) Description 12/23/2024 3:30 PM EDT Office Visit Cardiology at [address] [address] Carlos Eduardo Quan, [facility] [place] [place] [address] documented as of this encounter Visit Diagnoses Not on filedocumented in this encounter Care Teams Ticket Sales Supervisor Relationship Specialty Start Date End Date Domenica Atkins APRN PCP - General Family Medicine 11/21/21 documented as of this encounter
--- OUTSIDE RECORDS SUMMARY | 2024-06-11 18:08 | XMS_ITS | Encounter Summary ---
Author Organization [facility] [place] [address] Care Team Providers Care Otr Van Cdl Truck Driver Name Role Phone Milly Domenica Padgett APRN Primary Care Provider Reason for Visit * Reason Comments Atrial Fibrillation Cardiomyopathy Encounter Details Date Type Department Care Team (Late st Contact Info) Description 11/07/2022 1:40 PM EST Office Visit Cardiology at [address] [address] Curtis Arredondo MD [facility] [place] [address] Persistent atrial fibrillation Social History Tobacco Use [...] Sign Reading Time Taken Comments Blood Pressure 138/80 11/07/2022 1:59 PM EST Pulse 56 11/07/2022 1:59 PM EST per E CG Temperature - - Respiratory Rate - - Oxygen Saturation - - Inhaled Oxygen Concentration - - Weight 114.8 kg (253 lb) 11/07/2022 1:59 PM EST Height 170.2 cm (5' 7) 11/07/2022 1:59 PM EST Body Mass Index 39.63 11/07/2022 1:59 PM EST documented in this encounter Progress Notes * Curtis Arredondo MD - 11/07/2022 1:40 PM EST Section of Cardiology/Cardiac Electrophysiology Clinical Cardiac Electrophysiology Follow Up Patient ID Wilber Shell [id number] Wilber Shell is following up in EP [...] follow up at the EP clinic in [place],he was in AF/RVR - plans were made [...] and on rate control...' In April of 2022, he was seen in the Cardiology clinic in follow up of his atrial fibrillation andwas on amiodarone and anticoagulated with Xarelto. An LVEF of 45% was measured by echo in March of this year. Moderate to severe TR was noted, even though his LV function had interval improvement; this was suggestive of a tachy-myopathy'.. Because of QT prolongation with a dofetilide attempt, he was switched to amiodarone and was doing well with this at his last visit. Repeat echo is pending. In terms of physical activity - No lightheadedness, dizziness or syncope. No chest pain. No heart failure symptoms (no edema, PND, orthopnea) Weight stable Currently on 200 mg of amiodarone. Problem List Patient Active Problem List Diagnosis [...] Outpatient Medications Medication Sig Dispense Refill ??? AMIOdarone (Paceron) 200 mg Tablet Take 1 tablet by mouth daily. 90 tablet 1 ??? metFORMIN (Glucophage) 1,000 mg Tablet Take 1 tablet by mouth 2 times daily (with meals). 60 tablet ??? terbinafine HCL (LamISIL) 1 % Cream Apply topically as needed. ??? insulin needles, disposable, 29 gauge x 1/2 Needle 31 g by [employer].(Non-Drug; Combo Route) route daily. 31Gx1/4 ??? metoprolol [...] for the past 24 hrs: Pulse BP 11/07/22 1359 56 138/80 Physical Exam Constitutional: Comments: Body mass index is 38.02 kg/m??. HENT: Mouth/Throat: Pharynx: No oropharyngeal exudate. Cardiovascular: Rate and Rhythm: Normal rate. Rhythm irregular. Pulses: Normal pulses. Pulmonary: Effort: Pulmonary effort is normal. Skin: General: Skin is warm. Neurological: General: No focal deficit present. Mental Status: He is alert. I have personally reviewed the ECG: Sinus 56 bpm, [place] 180ms, QRS 80ms, QT 480ms Impression Wilber Shell is seen in the EP clinic for follow up after a recent EPS/ablation procedure. Hewas found to have an atypical atrial flutter at initial presentation, but a more typical right atrial counterclockwise (isthmus dependent) was ultimately found and ablated. 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 Symptomatically, he appears to be doing very well, with no symptomatic recurrences of atrial fibrillation, and return of his exercise capacity. We discussed the idea of reducing his amiodarone dose down further at his next visit, we need to follow TSH, LFTs, he should get an eye exam performed. We also discussed the role of atrial fibrillation ablation. As he appears to be doing so well, maintaining sinus rhythm, with an improvement in symptoms, his preference is to continue with medical therapy for now I will arrange for repeat TSH and LFTs. He also like to have his repeat echocardiogram done at [facility]. I ordered this. Recommendations / Plan A) Okay to continue amiodarone at current dose, perhaps at the next follow-up we will consider reducing him to 200 mg and 100 mg on alternate days B) TSH and LFTs ordered C) Echocardiogram for evaluation of LV function, tricuspid regurgitation at NVR H D) I will follow-up with him once results of these tests are available, but otherwise follow-up in 6 months time CURTIS ARREDONDO MD Cardiac Electrophysiology [facility] [place] T: [phone] F: [phone] 15 minutes of this 20 minute encounter were spent preparing to see the patient (e.g. review of tests), obtaining and/or reviewing separately obtained history, performing a medically appropriate examination and/or evaluation, counseling and educating the patient, ordering medications, tests, or procedures, documenting clinical information in the electronic, independently interpreting results Cc: Domenica Atkins APRN Latest Reference Range & Units 10/02/22 11:51 WBC 4.0 - 9.5 x10(3)/mcL 12.3 (H) RBC 4.58 - 5.54 x10(6)/mcL 4.80 Hemoglobin 13.7 - 16.5 g/dL 15.1 Hematocrit 40.5 - 48.5 % 44.0 MCV 82.9 - 93.1 fL 91.7 MCH 27.5 - 32.1 pg 31.5 MCHC 32.0 - 35.7 g/dL 34.3 RDWSD 36.0 - 45.0 fL 46.0 (H) RDWCV 11.4 - 13.8 % 13.5 Platelets 145 - 357 x10(3)/mcL 208 MPV 7.6 - 12.9 fL 10.4 nRBC % Auto % 0.0 nRBC Abs Auto 0.000 - 0.000 x10(3)/mcL 0.000 Neutr Abs (ANC) 1.70 - 6.10 x10(3)/mcL 8.53 (H) (H): Data is abnormally high documented in this encounter Plan of Treatment Upcoming Encounters Date Type Department Care Team (Late st Contact Info) Description 12/23/2024 3:30 PM EDT Office Visit Cardiology at [address] [place] [address] Carlos Eduardo Quan PA [facility] [place] [address] documented as of this encounter Visit Diagnoses Diagnosis Persistent atrial fibrillation Atrial fibrillation documented in this encounter Care Teams Otr Van Cdl Truck Driver Relationship Specialty Start Date End Date Domenica Atkins APRN PCP - General Family Medicine 11/21/21 documented as of this encounter
--- OUTSIDE RECORDS SUMMARY | 2024-06-11 18:08 | XMS_ITS | Encounter Summary ---
Author Organization [facility] [place] [address] Care Team Providers Care Center Machine Operator Name Role Phone Milly Domenica Dayron AGUILAR Primary Care Provider [phone] Encounter Details Date Type Department Care Team (Late st Contact Info) Description 05/21/2023 External Results Cardiology at [address] [place] [address] Donna Arredondo, RN Social History Tobacco Use Types Packs/Day [...] 3:30 PM EDT Office Visit Cardiology at [address] [place] [address] Carlos Eduardo Quan, [facility] [place] [address] documented as of this encounter Procedures Procedure Name Priority Date/Time Associated Diagnosis Comments BASIC METABOLIC PANEL Routine 05/21/2023 documented in this encounter Results * Basic Metabolic Panel (non-fasting) (05/21/2023) Glucose 188 Blood Urea Nitrogen 21 Creatinine 1.1 Est Glomerular Filtration Rate 70.88 Sodium 139 Potassium 3.7 Chloride 103 Calcium 9.4 Protein, Total 7.3 Albumin 4.0 Bilirubin, Total 1.0 Alkaline Phosphatase 80 Anion Gap 8 Aspartate Aminotransferase 15 Alanine Aminotransferase 20 Thyroid Stimulating Hormone 3.61 Blood Historical Provider CHEMISTRY ORDERAB LES documented in this encounter Visit Diagnoses Not on filedocumented in this encounter Care Teams Center Machine Operator Relationship Specialty Start Date End Date Domenica Atkins APRN PCP - General Family Medicine 11/21/21 documented as of this encounter
--- OUTSIDE RECORDS SUMMARY | 2024-06-11 18:08 | XMS_ITS | Encounter Summary ---
[place] [address] Care Team Providers Care Cleat Thrower Name Role Phone Domenica Atkins APRN Primary Care Provider [phone] Reason for Visit * Reason Onset Date Comments Pre Procedure Call 08/24/2022 Encounter Details Date Type Department Care Team (Late st Contact Info) Description 08/24/2022 Telephone Cardiology at [address] [address] Damaris Bowen, RN Pre Procedure Call Social History Tobacco Use Types Packs/Day Years [...] place to sleep or slept in a [place] facility (including now)? No 03/23/2022 Sex and Gender Information Value Date Recorded Sex Assigned at Not on file Gender Identity Not on file Sexual Orientation Not on file documented as of this encounter Miscellaneous Notes * Telephone Encounter - Damaris Bowen RN - 08/24/2022 8:24 AM ESTSummary: Pre Procedure Call: Dofetilide Drug Load EP RN CARDIOVERSION/DRUG LOAD CHECKLIST Patient Name: Wilber Shell Patient Providers: Brandon Mohr / Michael Barrios Date Scheduled: 08/28/22 Arrival Time/ Case Time: 10:30 am labs / 11:30 am appt Date Patient was Called: 08/24/22 Procedure: Dofetilide Drug Load Admission Med Instructions: AAD - STOP digoxin 2 days prior to admission (no doses 08/26 through 08/28) - perDr. Arnulfo Anticoag Type: Xarelto (rivaroxaban) - confirmed pt taking appropriately & no missed doses within past 21 days DM: Metformin - hold day before & AM of procedure Coming from an assisted living facility?: No Special Considerations/Notes: Understands that wheat combine driver is needed to transport them upon discharge (anticipated date of discharge -08/30) documented in this encounter Plan of Treatment Upcoming Encounters Date Type Department Care Team (Late st Contact Info) Description 12/23/2024 3:30 PM EDT Office Visit Cardiology at [address] [place] [address] Carlos Eduardo Quan, [facility] [place] [address] documented as of this encounter Visit Diagnoses Not on filedocumented in this encounter Care Teams Cleat Thrower Relationship Specialty Start Date End Date Domenica Atkins APRN PCP - General Family Medicine 11/21/21 documented as of this encounter
--- OUTSIDE RECORDS SUMMARY | 2024-06-11 18:08 | XMS_ITS | Encounter Summary ---
[place] [address] Care Team Providers Care Photoengraving Etcher Name Role Phone Milly Domenica Padgett APRN Primary Care Provider [phone] Encounter Details Date Type Department Care Team (Late st Contact Info) Description 09/20/2022 Telephone Cardiology at [address] [phone] Génesis Giordano, RN Social History Tobacco Use Types Packs/Day [...] place to sleep or slept in a long-term (including now)? No 03/23/2022 Sex and Gender Information Value Date Recorded Sex Assigned at Not on file Gender Identity Not on file Sexual Orientation Not on file documented as of this encounter Miscellaneous Notes * Telephone Encounter - Génesis Giordano RN - 09/20/2022 12:22 PM EST RTC to patient who reports he has been getting his xarelto for $30 a month through a program at [facility] as he does not have any prescription coverage. Pharmacy informed him they are not longer able to continue this and the cost will now be 500-600 per month. This is not affordable to him. Informed patient that pharmacies offer this medication for $75 a month, patient states this is still not affordable to him. Patient would like to switch to generic pradaxa if Dr. Arredondo approves. States he has 2 days left of xarelto. If appropriate, patient would like a prescription for generic pradaxa sent to the [facility] in [place], [place]. Génesis Giordano RN Cardiology Clinic at [facility] [phone] documented in this encounter Plan of Treatment Upcoming Encounters Date Type Department Care Team (Late st Contact Info) Description 12/23/2024 3:30 PM EDT Office Visit Cardiology at [address] [address] Carlos Eduardo Quan PA [facility] [place] [address] documented as of this encounter Visit Diagnoses Not on filedocumented in this encounter Care Teams Photoengraving Etcher Relationship Specialty Start Date End Date Domenica Atkins APRN PCP - General Family Medicine 11/21/21 documented as of this encounter
--- OUTSIDE RECORDS SUMMARY | 2024-06-11 18:08 | XMS_ITS | Encounter Summary ---
[place] [address] Care Team Providers Care Collision Center Manager Name Role Phone Milly Domenica Padgett APRN Primary Care Provider [phone] Encounter Details Date Type Department Care Team (Latest Contact Info) Description 04/27/2022 1:30 PM EDT - 04/27/2022 11:59 PM EDT Hospital Encounter [place]ology [place] [phone] Drug-induced ITP Discharge Disposition: Home Social History [...] place to sleep or slept in a long term (including now)? No 03/23/2022 Sex and Gender Information Value Date Recorded Sex Assigned at Not on file Gender Identity Not on file Sexual Orientation Not on file documented as of this encounter Medications at Time of Discharge Medication Sig Dispensed Refills Start Date End Date insulin needles, disposable, 29 gauge x 1/2 Needle 31 g by [facility].(Non-Drug; Combo Route) route daily. 31Gx1/4 metoprolol succinate [...] by mouth as needed for Erectile Dysfunction. UNABLE TO FIND Place 80 mg under the tongue 2 times daily. Sinethicone 07/11/2022 melatonin 1 mg Tablet Take 10 mg by mouth daily. 2 tablets at bedtime 07/11/2022 UNABLE TO FIND Take 1 tablet by mouth daily. Probiotics Enzyme tablets 07/11/[address] 1 % under the tongue daily. Terbinfine Hydroloride 2 digoxin (Lanoxin) 125 mcg (0.125 mg) TabletIndications:sepideh [...] PM EDT Office Visit Cardiology at [address] [place] [address] Carlos Eduardo Quan, [facility] [place] [address] documented as of this encounter Procedures Procedure Name Priority Date/Time Associated Diagnosis Comments HC C-REACTIVE PROTEIN Routine 04/27/2022 1:52 PM EDT Drug-induced ITP HEMOGRAM STAT 04/27/2022 1:52 PM EDT Drug-induced ITP DIFFERENTIAL, AUTOMATED STAT 04/27/2022 1:52 PM EDT Drug-induced ITP HC ESR-SEDIMENTATION RATE, BLOOD STAT 04/27/2022 1:52 PM EDT Drug-induced ITP HC CBC,PLT & AUTO DIFF STAT 04/27/2022 1:52 PM EDT Drug-induced ITP HC FOLATE, SERUM STAT 04/27/2022 1:52 PM EDT Drug-induced ITP HC VITAMIN B12 SERUM STAT 04/27/2022 1:52 PM EDT Drug-induced ITP HC VENIPUNCTURE Routine 04/27/2022 1:52 PM EDT Drug-induced ITP documented in this encounter Results * (ABNORMAL) Differential, Automated (04/27/2022 1:52 PM EDT) Neutrophil % 66.5 % [facility] Neutrophil Absolute 7.04(H) 1.70 - 6.10 x10(3)/[facility] Lymph % 20.2 % [facility] Lymphocytes Abs 2.1 0.9 - 3.2 x10(3)/[facility] Monocyte % 9.5 % [facility] Monocyte Abs 1.0(H) 0.3 - 0.9 x10(3)/[facility] Eos % 2.5 % [facility] Eosinophils Abs 0.3 0.0 - 0.4 x10(3)/[facility] Basophil % 0.8 % [facility] Baso Absolute 0.1 0.0 - 0.1 x10(3)/ L [facility] Immature Gran % 0.50 % [facility] Comment: Immature granulocytes(IG's)percentage and absolute count will include metamyelocytes, myelocytes, and promyelocytes. Blood smears from CBCs yielding IG's will be scanned manually for concordance. If this scan disagrees with the automated IG or if promyelocytes are noted, a manual differential will be performed. Immature Gran Absolute 0.05(H) 0.00 - 0.04 x10(3)/ L [facility] Blood 04/27/2022 1:52 PM EDT 04/27/2022 1:56 PM EDT Narrative Resulting Agency Comment Spec In Lab Porfirio Musa MD HEMATOLOGY ORDER [facility] [facility] [place] [address] * (ABNORMAL) Hemogram (04/27/2022 1:52 PM EDT) White Blood Cell 10.6(H) 4.0 - 9.5 x10(3)/mc L [facility] Red Blood Cell 4.56(L) 4.58 - 5.54 x10(6)/mc L [facility] Hemoglobin 13.9 13.7 - 16.5 g/dL [facility] Hematocrit 42.0 40.5 - 48.5 % [facility] Mean Cell Volume 92.1 82.9 - 93.[address] [facility] Mean Cell Hemoglobin 30.5 27.5 - 32.[address] [facility] Mean Cell Hemoglobin Concentration 33.1 32.0 - 35.7 g/dL [facility] Platelet 184 145 - 357 x10(3)/mc L [facility] RDW Standard Deviation 50.1(H) 36.0 - 45.[address] [facility] RDW coefficient of variation 14.8(H) 11.4 - 13.8 % [facility] Mean Platelet Volume 11.0 7.6 - 12.[address] [facility] NRBC% auto 0.0 % [facility] NRBC Absolute 0.000 0.000 - 0.000 x10(3)/mc L [facility] Blood 04/27/2022 1:52 PM EDT 04/27/2022 1:56 PM EDT Narrative Resulting Agency Comment Spec In Lab Porfirio Musa MD HEMATOLOGY ORDER [place] Performing Organization Address City/[facility]/ZIP Co de Phone Number [facility] [place] [address] * Sedimentation rate (04/27/2022 1:52 PM EDT) Pathologist [facility] Sedimentation Rate Automated 14 3 - 46 mm/hr [facility] Comment: Effective August 12, 2019 new capillary photometric technology has resulted in a change in reference ranges. It is recommended that each ESR result be reviewed with its own age appropriate reference range. Blood 04/27/2022 1:52 PM EDT 04/27/2022 1:56 PM EDT Narrative Resulting Agency Comment Spec In Lab Porfirio Musa MD HEMATOLOGY ORDER [facility] [place] [address] * CRP, acute inflammation (04/27/2022 1:52 PM EDT) [facility] C-Reactive Protein 3.9 <=4.9 mg/L [facility] Blood 04/27/2022 1:52 PM EDT 04/27/2022 1:55 PM EDT Narrative Resulting Agency Comment Spec In Lab Porfirio Musa MD CHEMISTRY ORDERA BLES Performing Organization Address City/[facility]/ZIP Co de Phone Number [facility] [place] [address] * Folate, serum (04/27/2022 1:52 PM EDT) [facility] Folate >20.0 4.8 - 24.2 ng/mL [facility] Blood 04/27/2022 1:52 PM EDT 04/27/2022 1:56 PM EDT Narrative Resulting Agency Comment Spec In Lab Porfirio Musa MD CHEMISTRY ORDERA BLES Performing Organization Address City/[facility]/ZIP Co de Phone Number [facility] [place] [address] * Vitamin B12 (04/27/2022 1:52 PM EDT) [facility] Vitamin B12 469 232 - 1,245 pg/mL [facility] Blood 04/27/2022 1:52 PM EDT 04/27/2022 1:56 PM EDT Narrative Resulting Agency Comment Spec In Lab Porfirio Musa MD CHEMISTRY ORDERA BLES [facility] [place] [address] * (ABNORMAL) Comprehensive metabolic panel (non-fasting) (04/27/2022 1:52 PM EDT) Glucose 201(H) 65 - 199 mg/dL [facility] Comment:Diabetes: >=200 mg/d L plus symptoms Blood Urea Nitrogen 18 10 - 20 mg/dL [facility] Creatinine 0.85 0.80 - 1.50 mg/dL [facility] Sodium 141 135 - 145 mmol/L [facility] Potassium 4.2 3.5 - 5.0 mmol/L [facility] Comment: Please note: ??Patients with WBC >100,000 may have falsely elevated Potassium levels. ??For accurate Potassium quantification in these patients send serum separator tube (gold top) for subsequent determinations. ??Contact the Clinical Chemistry Laboratory if there are any questions. Chloride 105 98 - 107 mmol/L [facility] Carbon Dioxide 23 22 - 31 mmol/L [facility] Anion Gap 13 5 - 15 mmol/L [facility] Calcium 9.3 8.5 - 10.5 mg/dL [facility] Protein, Total 6.7 6.1 - 8.0 g/dL [facility] Albumin 4.3 3.2 - 5.2 g/dL [facility] Aspartate Aminotransferase 16 0 - 39 unit/L [facility] Alanine Aminotransferase 17 0 - 55 unit/L [facility] Alkaline Phosphatase 64 40 - 130 unit/L [facility] Bilirubin, Total 1.0 0.2 - 1.3 mg/dL [facility] Est Glomerular Filtration Rate 92 >=60 mL/min/1. 73 m?? [facility] Comment: This patient's estimated GFR [...] Resulting Agency Comment Spec In Lab Porfirio uMsa MD CHEMISTRY ORDERA [facility] Organization Address City/State/[facility] Co de Phone Number [facility] [place] [phone] documented in this encounter Visit Diagnoses Diagnosis Drug-induced ITP Other secondary thrombocytopenia documented in this encounter Care Teams Collision Center Manager Relationship Specialty Start Date End Date Domenica Atkins APRN PCP - General Family Medicine 11/21/21 documented as of this encounter
--- OUTSIDE RECORDS SUMMARY | 2024-06-11 18:08 | XMS_ITS | Encounter Summary ---
[place] [address] Care Team Providers Care Real Estate Subagent Name Role Phone Milly Domenica Padgett APRN Primary Care Provider [phone] Encounter Details Date Type Department Care Team (Late st Contact Info) Description 12/12/2022 Telephone Cardiology at [address] [phone] Dora Palacio Social History Tobacco Use Types Packs/Day Years [...] encounter Miscellaneous Notes * Telephone Encounter - Dora Palacio - 12/12/2022 10:38 AM EDT Echo and office notes faxed to Deirdre at [facility] at [phone]. No ins prior auth needed. Call reference #: [id number]. Dora Palacio EP Scheduling/Cafe Site Attendant documented in this encounter Plan of Treatment Upcoming Encounters Date Type Department Care Team (Late st Contact Info) Description 12/23/2024 3:30 PM EDT Office Visit Cardiology at [address] [place] [phone] Carlos Eduardo Quan PA [facility] [place] [address] documented as of this encounter Visit Diagnoses Not on filedocumented in this encounter Care Teams Real Estate Subagent Relationship Specialty Start Date End Date Domenica Atkins APRN PCP - General Family Medicine 11/21/21 documented as of this encounter
--- OUTSIDE RECORDS SUMMARY | 2024-06-11 18:08 | XMS_ITS | Encounter Summary ---
Author Organization [facility] [address] Care Team Providers Care Radiology Director Name Role Phone Milly Domenica Padgett APRN Primary Care Provider [phone] Reason for Visit * Auth/Cert (Routine) Specialty Diagnoses / Procedures Referred By Valeria t Referred To Contact Diagnoses Persistent atrial fibrillation PERSISTENT AFIB Michael Barrios MD [facility] [place] [address] [facility] Referral ID Status Reason Start Date Expiration Date Visits Re quested Visits Authorized [id number] 1 1 Encounter Details Date Type Department Care Team (Latest Contact Info) Description 08/28/2022 10:25 AM EST Laboratory Appointment Lab [address] [place] [address] Persistent atrial fibrillation Social History Tobacco Use [...] PM EDT Office Visit Cardiology at [address] [address] Carlos Eduardo Quan PA [facility] [place] [address] documented as of this encounter Procedures Procedure Name Priority Date/Time Associated Diagnosis Comments HC MAGNESIUM, SERUM STAT 08/28/2022 10:37 AM EST Persistent atrial fibrillation BASIC METABOLIC PANEL STAT 08/28/2022 10:37 AM EST Persistent atrial fibrillation documented in this encounter Results * (ABNORMAL) Basic Metabolic Panel (non-fasting) (08/28/2022 10:37 AM EST) Glucose 274(H) 65 - 199 mg/dL [facility] Comment:Diabetes: >=200 mg/d L plus symptoms Blood Urea Nitrogen 19 10 - 20 mg/dL [facility] Creatinine 1.03 0.80 - 1.50 mg/dL [facility] Sodium 140 135 - 145 mmol/L [facility] Potassium 5.2(H) 3.5 - 5.0 mmol/L [facility] Comment: Please note: ??Patients with WBC >100,000 may have falsely elevated Potassium levels. ??For accurate Potassium quantification in these patients send serum separator tube (gold top) for subsequent determinations. ??Contact the Clinical Chemistry Laboratory if there are any questions. Chloride 104 98 - 107 mmol/L [facility] Carbon Dioxide 28 22 - 31 mmol/L [facility] Anion Gap 8 5 - 15 mmol/L [facility] Calcium 9.9 8.5 - 10.5 mg/dL [facility] Est Glomerular Filtration Rate 77 >=60 mL/min/1. 73 m?? [facility] Comment: This patient's estimated GFR [...] In Lab Connor Charles MD CHEMISTRY ORDERABLES [facility] [place] [address] * Magnesium (08/28/2022 10:37 AM EST) Magnesium 0.84 0.69 - 1.07 mmol/L [facility] Blood 08/28/2022 10:3 7 AM EST 08/28/2022 10:50 AM EST Narrative Resulting Agency Comment Spec In Lab Connor Charles MD CHEMISTRY ORDERABLES [facility] [place] [address] documented in this encounter Visit Diagnoses Diagnosis Persistent atrial fibrillation Atrial fibrillation documented in this encounter Care Teams Radiology Director Relationship Specialty Start Date End Date Domenica Atkins APRN PCP - General Family Medicine 11/21/21 documented as of this encounter
--- OUTSIDE RECORDS SUMMARY | 2024-06-11 18:08 | XMS_ITS | Encounter Summary ---
Author Organization [facility] Address [facility] [place] [address] Care Team Providers Care Record Center Coordinator Name Role Phone Milly Domenica Padgett APRN Primary Care Provider [phone] Reason for Visit * Reason Onset Date Comments Medication Refill 10/15/2022 Encounter Details Date Type Department Care Team (Late st Contact Info) Description 10/15/2022 Refill Cardiology at [address] [phone] Curtis Arredondo MD [facility] [place] [address] Medication Refill Social History Tobacco Use Types Packs/Day Years [...] Telephone Encounter - Domenica Nicole RN - 10/15/2022 9:36 AM EST RTC from PCP office stating that pt needs a refill of his Amiodarone and they were going to manage this medication. 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 Pt has since rebounded and platelets are up to 208 as of 10/02/22. Will forward refill Rx to Dr. Arredondo and update pharmacy so pt may receive [place] at mail order pharmacy in [place]. Will contact pt with any changes. documented in this encounter Plan of Treatment Upcoming Encounters Date Type Department Care Team (Late st Contact Info) Description 12/23/2024 3:30 PM EDT Office Visit Cardiology at [address] [place] [address] Carlos Eduardo Quan PA [facility] [place] [address] documented as of this encounter Visit Diagnoses Not on filedocumented in this encounter Care Teams Record Center Coordinator Relationship Specialty Start Date End Date Domenica Atkins, MET[employer] OR WOOD BLOCKER PCP - General Family Medicine 11/21/21 documented as of this encounter
--- OUTSIDE RECORDS SUMMARY | 2024-06-11 18:08 | XMS_ITS | Encounter Summary ---
Author Organization [facility] Address [facility] [place] [address] Care Team Providers Care Geoscience Technician Name Role Phone Milly Domenica Padgett APRN Primary Care Provider [phone] Encounter Details Date Type Department Care Team (Latest Contact Info) Description 07/09/2022 Travel Social History Tobacco Use Types Packs/Day [...] place to sleep or slept in a fdc (including now)? No 03/23/2022 Sex and Gender Information Value Date Recorded Sex Assigned at Not on file Gender Identity Not on file Sexual Orientation Not on file documented as of this encounter Plan of Treatment Upcoming Encounters Date Type Department Care Team (Late st Contact Info) Description 12/23/2024 3:30 PM EDT Office Visit Cardiology at [address] [place] [address] Carlos Eduardo Quan PA [facility] [place] [address] documented as of this encounter Visit Diagnoses Not on filedocumented in this encounter Care Teams Geoscience Technician Relationship Specialty Start Date End Date Domenica Atkisn APRN PCP - General Family Medicine 11/21/21 documented as of this encounter
--- OUTSIDE RECORDS SUMMARY | 2024-06-11 18:09 | XMS_ITS | Encounter Summary ---
Author Organization [facility] Address [facility] [place] [address] Care Team Providers Care Infantry Senior Sergeant Name Role Phone Domenica Atkins APRN Primary Care Provider [phone] Reason for Visit * Consultation (Routine) - Closed Specialty Diagnoses / Procedures Referred By Valeria t Referred To Contact Hematology and Oncology Diagnoses Drug-induced ITP Adeola Johnson MD [facility] [place] [address] [facility] Hem Onc [address] [place] [address] Referral ID Status Reason Start Date Expiration Date V isits Requested Visits Authorized [id number] Closed Consult, Test & Treat 03/11/2022 03/11/2023 1 1 Encounter Details Date Type Department Care Team (Late st Contact Info) Description 03/23/2022 8:30 AM EDT Office Visit H[place]ology [place] [address] Porfirio Musa MD [facility] DR HEMATOLOGY/[place] [address] Angie Banegas APRN [facility] HEMATOLOGY [place] [address] Drug-induced ITP (Primary Dx) Social History Tobacco [...] Sign Reading Time Taken Comments Blood Pressure 107/66 03/23/2022 8:15 AM EDT Pulse 67 03/23/2022 8:15 AM EDT Temperature 36 ??C (96.8 ??F) 03/23/2022 8:15 AM EDT Respiratory Rate 19 03/23/2022 8:15 AM EDT Oxygen Saturation 97% 03/23/2022 8:15 AM EDT Inhaled Oxygen Concentration - - Weight 106.8 kg (235 lb 6.4 oz) 03/23/2022 8:15 AM EDT Height 176 cm (5' 9.29) 03/23/2022 8:15 AM EDT Body Mass Index 34.47 03/23/2022 8:15 AM EDT documented in this encounter Progress Notes * Malik Garcia - 03/23/2022 8:30 AM EDT Images from the original note were not included. HEMATOLOGY CONSULTATION VISIT NOTE DATE OF VISIT : 03/23/22 REASON FOR VISIT: Wilber Shell is a 72 y.o. 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 The history is obtained from the patient, and I also have reviewed all the available medical records provided by the referring physician and located in the electronic medical records. Records Review: 01/02/2022 Platelet . Patient was started on torsemide, amiodarone and [...] 03/10/2022 Started on dexamethasone 40 mg daily HISTORY OF PRESENT ILLNESS Wilber Shell is [...] cardiac/resp/GI issues; Rest of the ROS: Negative REVIEW OF SYSTEMS Constitutional --Energy level: good [...] past surgical history on file. MEDICATIONS ??? metoprolol succinate XL (Toprol-XL) 100 mg Tablet Sustained Release 24 hr ??? rivaroxaban (Xarelto) 20 mg Tablet ??? [...] ORAL ??? Psyllium Seed-Sucrose (0) Powder ??? digoxin (Lanoxin) 125 mcg (0.125 mg) Tablet ALLERGIES/ADR Allergies Allergen Reactions ??? Sulfone Other [...] cancer PHYSICAL EXAM VITAL SIGNS: Blood pressure 107/66, pulse 67, temperature 36 ??C (96.8 ??F), temperature source Temporal, resp. rate 19, height 176 cm (5' 9.29), weight 106.8 kg (235 lb 6.4 oz), SpO2 97 %. ECOG PS: 0 GENERAL: Wilber Shell [...] Recent Results (from the past 72 hour(s)) Comprehensive metabolic panel (non-fasting) Result Value Ref Range Glucose Lvl 172 65 - 199 mg/dL BUN 15 10 - 20 mg/dL Creatinine 0.93 0.80 - 1.50 mg/dL Sodium 138 135 - 145 mmol/L Potassium 4.2 3.5 - 5.0 mmol/L Chloride 102 98 - 107 mmol/L CO2 27 22 - 31 mmol/L Anion Gap 9 5 - 15 mmol/L Calcium 9.2 8.5 - 10.5 mg/dL Total Protein 6.9 6.1 - 8.0 g/dL Albumin 4.1 3.2 - 5.2 g/dL AST 20 0 - 39 unit/L ALT 25 0 - 55 unit/L Alk Phos 70 40 - 130 unit/L Total Bilirubin 0.7 0.2 - 1.3 mg/dL Estimated GFR 87 >=60 mL/min/1.73 m?? Hemogram Result Value Ref Range WBC 10.8 (H) 4.0 - 9.5 x10(3)/mcL RBC 4.41 (L) 4.58 - 5.54 x10(6)/mcL Hemoglobin 13.8 13.7 - 16.5 g/dL Hematocrit 40.8 40.5 - 48.5 % MCV 92.5 82.9 - 93.1 fL MCH 31.3 27.5 - 32.1 pg MCHC 33.8 32.0 - 35.7 g/dL Platelets 95 (L) 145 - 357 x10(3)/mcL RDWSD 47.0 (H) 36.0 - 45.0 fL RDWCV 13.8 11.4 - 13.8 % MPV 11.6 7.6 - 12.9 fL nRBC % Auto 0.0 % nRBC Abs Auto 0.000 0.000 - 0.000 x10(3)/mcL Differential, Automated Result Value Ref Range Neutrophils % 69.7 % Neutr Abs (ANC) 7.51 (H) 1.70 - 6.10 x10(3)/mcL Lymphocytes % 16.1 % Lymphocytes Abs 1.7 0.9 - 3.2 x10(3)/mcL Monocytes % 10.8 % Monocyte Abs 1.2 (H) 0.3 - 0.9 x10(3)/mcL Eosinophils % 1.9 % Eosinophils Abs 0.2 0.0 - 0.4 x10(3)/mcL Basophils % 0.7 % Basophils Abs 0.1 0.0 - 0.1 x10(3)/mcL Immature Gran % 0.80 % Nini Gran Abs 0.09 (H) 0.00 - 0.04 x10(3)/mcL RADIOLOGY - [...] CBC and CMP. His platelet count is 95,000. His rest of the labs and CMP are unremarkable. He does not need any further intervention pr therapy at this time. He will continue [...] new symptom or any questions. Thank you Adeola Chance for asking us to see this very pleasant patient. Please don't hesitate to contact me if you'd like to discuss this patient's situation further. Total time spent : 60 including the time spent face to face with the patient, reviewing medical records and documenting patient care, coordinating care etc.. Patient seen and discussed with Dr. Musa. Malik Garica MD [facility] HEMATOLOGY/BMT STAFF PROGRESS NOTE I interviewed, examined [...] likely. Porfirio Musa MD Section of Hematology [facility] CC: Domenica Atkins, Adeola Huizar documented in this encounter Plan of Treatment Upcoming Encounters Date Type Department Care Team (Late st Contact Info) Description 12/23/2024 3:30 PM EDT Office Visit Cardiology at [address] [place] [address] Carlos Eduardo Quan, ALISON [facility] [place] [address] [phone] (work) documented as of this encounter Results * Comprehensive metabolic panel (non-fasting) (03/23/2022 9:06 AM EDT) Glucose 172 65 - 199 mg/dL [facility] Comment:Diabetes: >=200 mg/d L plus symptoms Blood Urea Nitrogen 15 10 - 20 mg/dL [facility] Creatinine 0.93 0.80 - 1.50 mg/dL [facility] Sodium 138 135 - 145 mmol/L [facility] Potassium 4.2 3.5 - 5.0 mmol/L [facility] Comment: Please note: ??Patients with WBC >100,000 may have falsely elevated Potassium levels. ??For accurate Potassium quantification in these patients send serum separator tube (gold top) for subsequent determinations. ??Contact the Clinical Chemistry Laboratory if there are any questions. Chloride 102 98 - 107 mmol/L [facility] Carbon Dioxide 27 22 - 31 mmol/L [facility] Anion Gap 9 5 - 15 mmol/L [facility] Calcium 9.2 8.5 - 10.5 mg/dL [facility] Protein, Total 6.9 6.1 - 8.0 g/dL [facility] Albumin 4.1 3.2 - 5.2 g/dL [facility] Aspartate Aminotransferase 20 0 - 39 unit/L [facility] Alanine Aminotransferase 25 0 - 55 unit/L [facility] Alkaline Phosphatase 70 40 - 130 unit/L [facility] Bilirubin, Total 0.7 0.2 - 1.3 mg/dL [facility] Est Glomerular Filtration Rate 87 >=60 mL/min/1. 73 m?? [facility] Comment: This patient's estimated [...] Lab Porfirio Musa MD CHEMISTRY ORDERA BLES [facility] [place] [address] documented in this encounter Visit Diagnoses Diagnosis Drug-induced ITP- Primary Other secondary thrombocytopenia documented in this encounter Care Teams Infantry Senior Sergeant Relationship Specialty Start Date End Date Domenica Atkins APRN PCP - General Family Medicine 11/21/21 documented as of this encounter
--- OUTSIDE RECORDS SUMMARY | 2024-06-11 18:10 | XMS_ITS | Encounter Summary ---
Author Organization [facility] Address [address] [place] [address] Care Team Providers Care Vermin Exterminator Name Role Phone Unknown, Provider Primary Care Provider Encounter Details Date Type Department Care Team (Late st Contact Info) Description 03/14/2023 Lab Requisition [facility] Pathology & Laboratory Medicine - [address] [address] Cristi Ordonez MD [address] [place] [address], [address] [place] [address] Acute cholecystitis with chronic cholecystitis Social History Tobacco Use Types Packs/Day Years Used Date Smoking Tobacco: Never Assessed Interpersonal Safety Answer Date Record ed Physically Hurt Never 12/06/2020 Verbally Threaten Not on file 12/06/2020 Sex and Gender Information Value Date Recorded Sex Assigned at Not on file Gender Identity Not on file Sexual Orientation Not on file documented as of this encounter Plan of Treatment Not on file documented as of this encounter Procedures Procedure Name Priority Date/Time Associated Diagnosis Comments SURGICAL PATHOLOGY Today 03/13/2023 13 :16 EDT Acute cholecystitis with chronic cholecystitis documented in this encounter Results * SURGICAL PATHOLOGY (03/13/2023 13:16 EDT) Note to Patient The following pathology results have been interpreted by your pathologist and may be available to you before your health provider has had the opportunity to review them. Please allow time for your provider to receive these results and explore management options, if applicable. 03/15/2023 12:41 EDT [facility] Final Diagnosis A. 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 03/15/2023 12:41 EDT [facility] Attestation By the signature below, the attending physician certifies that they have 1) personally conducted a gross and/or microscopic examination of the described specimen(s), and/or personally interpreted the results of laboratory testing of the described specimen(s), and 2) personally rendered or confirmed the above diagnosis. 03/15/2023 12:41 [facility] at 1241 Clinical History Acute cholecystitis 03/15/2023 12:41 T [facility] Gross Description A. Received in formalin labelled with proper patient identification (initials V, J) and gallbladder? is a focally disrupted gallbladder with an attached segment of cystic duct (10.2 x 4.0 x 3.5 cm). A possible cystic duct lymph node is identified (0.9 x 0.7 x 0.4 cm). The serosal surface is dusky purple-brown and smooth. The mucosal surface is red-brown, smooth and velvety and hemorrhagic. The wall has a thickness ranging from 0.4-0.8 cm in thickness and has a king to brown hemorrhagic cut surface. The cystic duct lumen is patent and measures 0.5 cm in diameter. The gallbladder lumen contains dark red-brown hemorrhagic bile. The cystic duct margin, en face and the possible cystic duct lymph node are submitted in A1 and 2 motor vehicle representative wall cross sections are submitted in A2. ALISON REDDY(ASC) 03/14/2023 9:56 03/15/2023 12:41 EDT [facility] Performing Lab [facility] 03/15/2023 12:41 T [facility] Scanned Images 03/15/2023 12:41 T [facility] Tissue ENTIRE GALLBLADDER / Unknown 03/13/2023 13:16 EDT 03/14/2023 8:23 EDT Cristi Ordonez MD PATHOLOGY ORDERABLES [facility] [address] [place] [address] documented in this encounter Visit Diagnoses Diagnosis Acute cholecystitis with chronic cholecystitis Acute and chronic cholecystitis documented in this encounter Care Teams Vermin Exterminator Relationship Specialty Start Date End Date Unknown, Provider, PCP - General 12/01/20 documented as of this encounter
--- OUTSIDE RECORDS SUMMARY | 2024-06-11 18:10 | XMS_ITS | Encounter Summary ---
[place] [address] Care Team Providers Care Leach Cell Operator Name Role Phone Domenica Atkins Dayron AGUILAR Primary Care Provider [phone] Reason for Referral * Consultation (Urgent) - Closed Specialty Diagnoses / Procedures Referred By Contact Referred To Contact Electrophysiology / Cardiology Diagnoses Atrial fibrillation, unspecified type Atrial flutter, unspecified type afib, aflutter Evan Guzman MD [address] [place] [id number] [facility] Cardiology [address] [place] [phone] Referral ID Status Reason Start Date Expiration Date V isits Requested Visits Authorized [id number] Closed Consult, Test & Treat 11/21/2021 11/21/2022 6 6 Encounter Details Date Type Department Care Team (Latest Contact Info) Description 11/21/2021 Transcribe Orders eDH Incoming Referrals [phone] Evan Guzman MD [address] [place] [phone] Atrial fibrillation, unspecified type; Atrial flutter, unspecified type Social History Tobacco Use Types Packs/Day Years Used Date Smoking Tobacco: Never Assessed Sex and Gender Information Value Date Recorded Sex Assigned at Not on file Gender Identity Not on file Sexual Orientation Not on file documented as of this encounter Plan of Treatment Upcoming Encounters Date Type Department Care Team (Late st Contact Info) Description 12/23/2024 3:30 PM EDT Office Visit Cardiology at [address] [place] [address] Carlos Eduardo Quan, ALISON [facility] [place] [address] Scheduled Referrals Name Type Priority Associated Diagnoses Order Schedule Referral to Cardiac Electrophysiology Outpatient Referral Routine Atrial fibrillation, unspecified type Atrial flutter, unspecified type Ordered: 11/21/2021 documented as of this encounter Visit Diagnoses Diagnosis Atrial fibrillation, unspecified type Atrial flutter, unspecified type documented in this encounter Care Teams Leach Cell Operator Relationship Specialty Start Date End Date Domenica Atkins, DEHYDROGENATION SUPERVISOR PCP - General Family Medicine 11/21/21 documented as of this encounter
--- OUTSIDE RECORDS SUMMARY | 2024-06-11 18:10 | XMS_ITS | Encounter Summary ---
[place] [address] Care Team Providers Care Market Development Trainer Name Role Phone Milly Domenica Padgett APRN Primary Care Provider [phone] Encounter Details Date Type Department Care Team (Late st Contact Info) Description 12/28/2021 Telephone Cardiology at [address] [phone] Damaris Bowen, RN Social History Tobacco Use Types Packs/Day Years Used Date Smoking Tobacco: Never Smokeless Tobacco: Never Sex and Gender Information Value Date Recorded Sex Assigned at Not on file Gender Identity Not on file Sexual Orientation Not on file documented as of this encounter Miscellaneous Notes * Telephone Encounter - Damaris Bowen RN - 12/28/2021 3:16 PM EDTSummary: Pre Procedure Call: AFlutter Ablation EP NETWORK SYSTEMS ANALYST COORDINATION CHECKLIST TC to pt to relay pre procedure instructions. Unable to reach at number on file. LVM asking for call back at earliest convenience. Also sent instructions to active Patient Portal via [employer] message Patient Name: Wilber Shell Patient Performing Briquetter Operator: Curtis Arredondo Referring Provider: N/A Date of Procedure: 01/02/22 Arrival Time/ Case Time: 6:30 am / 7:30 am Check In Location: Supervisor Counseling And Guidance Desk 4W Date Patient was Called: 12/28/21 Procedure: Atrial Flutter Ablation Company: [employer] Orders: Yes Lab Orders: Yes Anesthesia: GA [...] Other Instructions: Clear liquids (water, apple juice, josie gerry) OK up until 2 hrs prior to procedure, nothing to eatafter midnight on day of procedure.Same Day will call 01/01/22. If applicable will bring CPAP from home. Will be staying overnight , understands that they will need tilt tray driver on day of discharge Notified pt that Saez catheter may be placed on day of procedure depending on type & duration of case. documented in this encounter Plan of Treatment Upcoming Encounters Date Type Department Care Team (Late st Contact Info) Description 12/23/2024 3:30 PM EDT Office Visit Cardiology at [address] [phone] Carlos Eduardo Quan, ALISON [facility] [place] [address] documented as of this encounter Visit Diagnoses Not on filedocumented in this encounter Care Teams Market Development Trainer Relationship Specialty Start Date End Date Domenica Atkins APRN PCP - General Family Medicine 11/21/21 documented as of this encounter
--- OUTSIDE RECORDS SUMMARY | 2024-06-11 18:10 | XMS_ITS | Encounter Summary ---
[place] [address] Care Team Providers Care Industrial Manufacturing Technician Name Role Phone Milly Domenica Padgett APRN Primary Care Provider [phone] Encounter Details Date Type Department Care Team (Late st Contact Info) Description 02/26/2022 Telephone Cardiology at [address] [phone] Natali Davison, RN Social History Tobacco Use Types Packs/Day Years Used Date Smoking Tobacco: Never Smokeless Tobacco: Never Sex and Gender Information Value Date Recorded Sex Assigned at Not on file Gender Identity Not on file Sexual Orientation Not on file documented as of this encounter Miscellaneous Notes * Telephone Encounter - Natali Davison, RN - 02/26/2022 4:53 PM EDT RTC to Ms Gonsales regarding her Hot Call message stating her Step Father is struggling, that his color is rinaldi, and he is having Shortness of Breath. She states he would like to have the Sotalol Drugload. Let her know that at this time he needs to be seen in the ER, and there is not an emergency Medication load, there is an emergency Cardioversion, as well, as emergency medications. Let Ms Gonsales know her message will be forwarded to ALISON Gil, and to our Manager Transport, as her father would like to be rescheduled. Left a voicemail message on patient's cell phone reaching out to him after his request for providerto call back regarding canceled sotalol drug load in the setting of recently missed Xarelto and persistent atrial fibrillation. ?? Reiterated on voicemail the importance of not missing oral anticoagulation for three weeks prior todrug load due to the high risk of [...] Carlos Eduardo Quan PA-C 02/19/2022 Natali Davison (Jodie) RN, BSN [facility] documented in this encounter Plan of Treatment Upcoming Encounters Date Type Department Care Team (Late st Contact Info) Description 12/23/2024 3:30 PM EDT Office Visit Cardiology at [address] [place] [address] Carlos Eduardo Quan PA [facility] [place] [address] documented as of this encounter Visit Diagnoses Not on filedocumented in this encounter Care Teams Industrial Manufacturing Technician Relationship Specialty Start Date End Date Domenica Atkins APRN PCP - General Family Medicine 11/21/21 documented as of this encounter
--- OUTSIDE RECORDS SUMMARY | 2024-06-11 18:10 | XMS_ITS | Encounter Summary ---
[place] [address] Care Team Providers Care Supervisor Rough End Name Role Phone RayDomenica tate Dayron AGUILAR Primary Care Provider [phone] Reason for Visit * Auth/Cert Specialty Diagnoses / Procedures Referred By Contac t Referred To Contact Diagnoses Atrial fibrillation, unspecified type [I48.91] Procedures ELECTROPHYSIOLOGY PROCEDURE Referral ID Status Reason Start Date Expiration Date Visits Re quested Visits Authorized [id number] 1 1 Encounter Details Date Type Department Care Team (Late st Contact Info) Description 01/02/2022 7:30 AM EDT - 01/02/2022 12:00 PM EDT Surgery [place] [address] Ryder Mcadams MD [facility] [place] [address] ELECTROPHYSIOLOGY PROCEDURE Social History Tobacco Use Types Packs/Day Years [...] 36.5 ??C (97.7 ??F) 01/02/2022 11:49 AM E DT Respiratory Rate 16 01/02/2022 12:00 PM EDT Oxygen Saturation 92% 01/02/2022 12:00 PM EDT Inhaled Oxygen Concentration - - Weight 112.5 kg (248 lb) 01/02/2022 6:44 AM EDT Height 170.2 cm (5' 7) 01/02/2022 6:44 AM EDT Body Mass Index 38.84 01/02/2022 6:44 AM EDT documented in this encounter Discharge Instructions * Patient Instructions* Beau Julian MD - 01/02/2022 10:07 AM EDT [...] bleeding risk while on blood thinners (does not include aspirin). Problems to Watch For If there [...] the ablation procedure, but heavy lifting and straingshould be avoided for the first 3-5 days. [...] (flutter, fibrillation, tachycardia). Post-procedure atrial dysrhythmias on thebasis of temporary inflammation are not uncommon, and are not necessarily indicative of an ineffective procedure... if the dysrhythmia is due to inflammtion, the dysrhythmias likely will cease as theinflammation resolves. The first 1-2 months are the most likely time during which this matter is rel evant. If the patient experiences dysrhythmias, the Cardiac Electrtophysiology Service should be contacted. Side effects of any new medications initiated at the [facility]. The patient should be aware and informed [...] his/her physician or the Cardiac Electrophysiology Service ([phone]). documented in this encounter Medications at Time of Discharge Medication Sig Dispensed Refills Start Date End Date insulin detemir U-100 (Levemir) 100 unit/mL (3 [...] by mouth as needed for Erectile Dysfunction. lactobacillus rhamnosus, GG, (CULTURELLE) 10 billion cell Capsule Take 1 capsule by mouth daily. 05/15/2023 metFORMIN (GLUCOPHAGE) 1,000 mg Tablet Take 1,000 mg by mouth 2 times daily (with meals). 08/28/2022 multivitamin (THERAGRAN) Tablet Take 1 tablet by mouth daily. 11/13/2023 SIMETHICONE ORAL Take by mouth as needed. 05/15/2023 Psyllium Seed-Sucrose (0) Powder Take by mouth daily. 023 metoprolol succinate XL (Toprol-XL) 25 mg Tablet Sustained Release 24 hr Take 37.5 mg by mouth daily. 03/11/2022 rivaroxaban (Xarelto) 20 mg Tablet Take 20 mg by mouth daily. 03/11/2022 documented as of this encounter Progress Notes * Luz Woodall RN - 01/02/2022 2:01 PM EDT Patient discharge to home. IV removed, site benign. RN discussed pain management with patient, paintolerable. Patient has all belongings and supplies needed. Patient received After Visit Summary andany prescriptions, or was directed to pick them up at pharmacy if applicable. These were reviewed, patient verbalizes understanding of AVS. All questions answered. Patient encouraged to call with questions or concerns. Patient discharged to home with family via wheelchair to east entrance. documented in this encounter H&P Notes * Jake Barajas RN - 01/02/2022 11:05 AM EDT Pt arrived from EP lab s/p procedure (see EP note). Vital signs currently stable. Right venous groin access clear, dry and intact. Currently groin site is soft and non-tender. Pt has palpable pulses to both lower extremities and color, temperature and sensation currently normal. Will continue to monitor pending transfer back to same day program. Pt's HOB maintained at 30 degrees or less. * Ryder Mcadams MD - 01/02/2022 7:10 AM [...] Saline 0.9) flush 5-20 mL 5-20 mL Intravenous Q1 Min PRN Jake Baptiste, DO ??? lidocaine (Xylocaine) 1% (10 mg/mL) injection 3 mg 0.3 mL Subcutaneous Once PRN Emile TimJacquie, DO ??? lactated ringers infusion 1,000 mL [...] inpatient admission for sotalol load today depending uponthe findings of the EPS RYDER MCADAMS MD documented in this encounter Plan of Treatment Upcoming Encounters Date Type Department Care Team (Late st Contact Info) Description 12/23/2024 3:30 PM EDT Office Visit Cardiology at [address] [place] [address] Carlos Eduardo Quan PA [facility] [address] documented as of this encounter Procedures Procedure Name Priority Date/Time Associated Diagnosis Comments POCT GLUCOSE Routine 01/02/2022 12:01 PM EDT ELECTROPHYSIOLOGY PROCEDURE Routine 01/02/2022 8:27 AM EDT Atrial fibrillation, unspecified type HEMOGRAM Routine 01/02/2022 7:15 AM EDT Atrial fibrillation, unspecified type DIFFERENTIAL, AUTOMATED Routine 01/03/20 7:15 AM EDT Atrial fibrillation, unspecified type HC CBC,PLT & AUTO DIFF Routine 7:15 AM EDT Atrial fibrillation, unspecified type BASIC METABOLIC PANEL Routine 01/02/2022 7:15 AM EDT Atrial fibrillation, unspecified type POCT GLUCOSE Routine 01/02/2022 6:51 AM EDT documented in this encounter Results * POCT Glucose (01/02/2022 12:01 PM EDT) Glucose, POC 144 65 - 199 mg/dL [facility] Comment: Supplemental ranges: <140 mg/dL before meals <180 mg/dL all other times of the day Blood 01/02/2022 12:0 1 PM EDT 01/02/2022 12:01 PM EDT Ryder Mcadams MD POINT OF CARE TEST O RDERABLES [facility] [address] * ELECTROPHYSIOLOGY PROCEDURE (01/02/2022 8:27 AM EDT) Anatomical Region Laterality Modality Other Impressions 01/06/2022 11:53 AM EDT : ? ? Successful ablation of typical atrial flutter DISCUSSION: 1. Continue metoprolol succinate at 75 mg daily. 2. Continue apixaban 5mg twice daily for anticoagulation. 3. Follow up in clinic with either Dr. Julian or Dr. Mcadams. I was the molded goods embossing press operator for the procedure, present for the entire procedure and personally edited this note RYDER MCADAMS MD Narrative 01/06/2022 11:53 AM EDT Ablation of Atrial flutter: Electrophysiology Study, Mapping (CARTO), Cardioversion, Ablation Indication: Symptomatic atrial flutter Cath Laboratory Technician: Ryder WAGONER.[facility]. Fellow: Beau Julian MD Procedure: The patient was brought to the [facility] in the fasting sedated state. ??Continuous electrocardiographic monitoring was instituted. General anesthesia was delivered by our anesthesia colleagues. Both groins were prepped and draped in the usual sterile fashion and 2% lidocaine with 0.5 % bupivicaine in a 2:3 mixture was instilled for local anesthesia in the right groin. ??Venous access was obtained using the Seldinger technique, guided by ultrasonography. ?? Catheters were positioned utilizing fluoroscopy. Site ??Sheath Catheter ? Access site ? Coronary sinus 8.5 Fr ?Inquiry Decapoalar ?Right femoral vein Ablation/Map 8.5 Fr SR0 ?8 Fr 3.5 mm tip, Smarttouch S/F ? Right femoral vein After all of the catheters were in position the patient was heparinized with a 5000 unit heparin bolus, without infusion. Programmed electrical stimulation, mapping, and ablation was performed as detailed below and stored on optical disk. ??At the termination of the procedure the catheters and sheaths were removed, and hemostasis was obtained with manual compression. ??The patient tolerated the procedure well and was transported to a telemetry bed in good condition. Total fluoroscopy time: 0.7 minutes, DAP <100 cGy/cm-2 RESULTS: 1. Baseline rhythm was coarse atrial fibrillation with a ventricular rate of ~100bpm. Patient underwent a 200J DCCV with conversion to normal sinus rhythm. AERP was 600/220ms, an AVNERP <600/220ms. AVWB 320ms 2. Rapid atrial pacing from the proximal coronary sinus electrode pair, initialy generating small nonsustained runs of atrial fibrillation. Atrial flutter with a right to left CS activation was eventually induced, at a cycle length of 240ms. Activation mapping was performed with a Pentaray which remonstrated counter-clockwise atrial flutter. THe pentaray was exchanged for the ablation catheter and a PPI-TCL from the CTI was 11 ms. 3. Multiple radiofrequency lesions were delivered along the cavo-tricuspid isthmus, starting at the tricuspid valve annulus, in approximately the ' 6 o'clock ' position in LEIDA projection. Care was taken to stay off the septum. The CARTO electroanatomic mapping system was used to locate the lesions in 3 D space. Ablation was commenced with 30 thao irrigated ablation. Ablation was performed in a point by point fashion to the IVC, with review of ablation dwell time, impedance drops, and mitigation of signal to indicate successful ablation. Atrial flutter broke with ablation and catheter manipulation in the mid-isthmus ('high voltage' channel seen here). 3. One half hour later, pre and post-Dobutamine (5 mcg/minute), transithmus conduction times were 154 ms from the septum to the lateral wall. Pacing from the lateral wall of the right atrium had a TICT of 120ms. Activation mapping confirmed a line of block along the ablation lesion set. Intervals: Cycle length: 724 ms IN 172 ms QRS 93 ms QT 344 ms HV 54 ms (taken in atrial flutter) Conduction AVWB 320ms AERP 600/220ms AVNERP <600/220ms Ryder Mcadams MD EP PROCEDURE ORDERAB LES * Differential, Automated (01/02/2022 7:15 AM EDT) Neutrophil % 60.2 % [facility] Neutrophil Absolute 5.32 1.70 - 6.10 x10(3)/[facility] Lymph % 25.6 % [facility] Lymphocytes Abs 2.3 0.9 - 3.2 x10(3)/[facility] Monocyte % 10.5 % [facility] Monocyte Abs 0.9 0.3 - 0.9 x10(3)/[facility] Eos % 2.6 % [facility] Eosinophils Abs 0.2 0.0 - 0.4 x10(3)/[facility] Basophil % 0.8 % [facility] Baso Absolute 0.1 0.0 - 0.1 x10(3)/[facility] Immature Gran % 0.30 % [facility] Comment: Immature granulocytes(IG's)percentage and absolute count will include metamyelocytes, myelocytes, and promyelocytes. Blood smears from CBCs yielding IG's will be scanned manually for concordance. If this scan disagrees with the automated IG or if promyelocytes are noted, a manual differential will be performed. Immature Gran Absolute 0.03 0.00 - 0.04 x10(3)/[facility] Blood 01/02/2022 7:15 AM EDT 01/02/2022 7:32 AM EDT Narrative Resulting Agency Comment Spec In Lab Beau Julian MD HEMATOLOGY ORDERAB LES [facility] [place] [address] * (ABNORMAL) Hemogram (01/02/2022 7:15 AM EDT) White Blood Cell 8.8 4.0 - 9.5 x10(3)/mc L [facility] Red Blood Cell 4.42(L) 4.58 - 5.54 x10(6)/ L [facility] Hemoglobin 14.0 13.7 - 16.5 g/dL [facility] Hematocrit 42.5 40.5 - 48.5 % [facility] Mean Cell Volume 96.2(H) 82.9 - 93.1 [facility] Mean Cell Hemoglobin 31.7 27.5 - 32.1 pg [facility] Mean Cell Hemoglobin Concentration 32.9 32.0 - 35.7 g/dL [facility] Platelet 179 145 - 357 x10(3)/mc L [facility] RDW Standard Deviation 46.4(H) 36.0 - 45.0 [facility] RDW coefficient of variation 13.1 11.4 - 13.8 % [facility] Mean Platelet Volume 11.3 7.6 - 12.9 [facility] NRBC% auto 0.0 % [facility] NRBC Absolute 0.000 0.000 - 0.000 x10(3)/mc L [facility] Blood 01/02/2022 7:15 AM EDT 01/02/2022 7:32 AM EDT Narrative Resulting Agency Comment Spec In Lab Beau Julian MD HEMATOLOGY ORDERAB LES [facility] [place] [address] * (ABNORMAL) Basic Metabolic Panel (non-fasting) (01/02/2022 7:15 AM EDT) Glucose 200(H) 65 - 199 mg/dL [facility] Comment:Diabetes: >=200 mg/d L plus symptoms Blood Urea Nitrogen 18 10 - 20 mg/dL [facility] Creatinine 0.89 0.80 - 1.50 mg/dL [facility] Sodium 140 135 - 145 mmol/L [facility] Potassium 4.5 3.5 - 5.0 mmol/L [facility] Comment: Please note: ??Patients with WBC >100,000 may have falsely elevated Potassium levels. ??For accurate Potassium quantification in these patients send serum separator tube (gold top) for subsequent determinations. ??Contact the Clinical Chemistry Laboratory if there are any questions. Chloride 105 98 - 107 mmol/L [facility] Carbon Dioxide 23 22 - 31 mmol/L [facility] Anion Gap 12 5 - 15 mmol/L [facility] Calcium 9.1 8.5 - 10.5 mg/dL [facility] Est Glomerular Filtration Rate 86 >=60 mL/min/1. 73 m?? [facility] Comment: This patient? s estimated glomerular filtration rate (eGFR) is between 86 mL/min/1.73 m2 (patients with less muscle mass per kg body weight) and 100 mL/min/1.73 m2 (patients with more muscle mass per kg body weight) as determined by the CKD-EPI equation. Assessment of eGFR is not appropriate when creatinine concentrations are rapidly changing. For clinical decisions where creatinine clearance will affect therapy, a 24-hour urine creatinine clearance may be advised. Assignment of CKD stage 1 - 5 for patients with an eGFR near the transition point between stages may be based on clinical assessment of muscle mass and symptoms in addition to eGFR. Blood 01/02/2022 7:15 AM EDT 01/02/2022 7:32 AM EDT Narrative Resulting Agency Comment Spec In Lab Ryder Mcadams MD CHEMISTRY ORDERABLES Performing Organization Address City/[facility] Co de Phone Number [facility] [place] [address] * POCT Glucose (01/02/2022 6:51 AM EDT) Glucose, POC 186 65 - 199 mg/dL [facility] Comment: Supplemental ranges: <140 mg/dL before meals <180 mg/dL all other times of the day Blood 01/02/2022 6:51 AM EDT 01/02/2022 6:51 AM EDT Ryder Mcadams MD POINT OF CARE TEST O RDERABLES Performing Organization Address City/State/[facility] Co de Phone Number [facility] [address] [place] [address] documented in this encounter Visit Diagnoses Diagnosis Atrial fibrillation, unspecified type Atrial fibrillation, unspecified type documented in this encounter Administered Medications documented in this encounter Active and Recently Administered Medications Times are shown in EDT. Continuous Medication Order 12/31/2021 01/01/2022 01/02/2022 lactated ringers infusion (CANCELED) 1,000 mL, at 100 mL/hr, Intravenous, CONTINUOUS, Starting on Sat01/02/22 at 0715, Until Sat01/02/22 at 1139, Day of Surgery (Day of Procedure) 0739 (New Bag - Prov ider: Malu Erazo CRNA)1022 (Anesthesia Volume Adjustment - Provider: Malu Erazo CRNA) PRN Medication Order 12/31/2021 01/01/2022 01/02/2022 acetaminophen (Tylenol) tablet 650 mg 650 mg, Oral, EVERY 4 HOURS PRN, Starting on Sat01/02/22 at 1039, Until Sat01/02/22 at 1630, Pain, Fever, Mild-moderate pain (1-6), Maximum dose of acetaminophen is 4000 mg from all sources in 24 hours. When ordered for pain, acetaminophen should be given even when other ordered pain medications are indicated., Recovery (Recovery-Hospital Unit), Routine documented in this encounter Care Teams Supervisor Rough End Relationship Specialty Start Date End Date Domenica Atkins APRN PCP - General Family Medicine 11/21/21 documented as of this encounter
--- OUTSIDE RECORDS SUMMARY | 2024-06-11 18:10 | XMS_ITS | Encounter Summary ---
[place] [address] Care Team Providers Care High School Professional Name Role Phone Domenica Atkins Dayron AGUILAR Primary Care Provider [phone] Encounter Details Date Type Department Care Team (Late st Contact Info) Description 12/28/2021 Telephone [place] [address] Justina Telles Social History Tobacco Use Types Packs/Day Years Used Date Smoking Tobacco: Never Smokeless Tobacco: Never Sex and Gender Information Value Date Recorded Sex Assigned at Not on file Gender Identity Not on file Sexual Orientation Not on file documented as of this encounter Miscellaneous Notes * Telephone Encounter - Justina Telles - 12/28/2021 5:06 PM EDT 12/28/21 - patient is scheduled at [facility] in [facility] for COVID test - will bring results to surgery documented in this encounter Plan of Treatment Upcoming Encounters Date Type Department Care Team (Late st Contact Info) Description 12/23/2024 3:30 PM EDT Office Visit Cardiology at [address] [phone] Carlos Eduardo Quan, ALISON [facility] [place] [address] documented as of this encounter Visit Diagnoses Not on filedocumented in this encounter Care Teams High School Professional Relationship Specialty Start Date End Date Domenica Atkins APRN PCP - General Family Medicine 11/21/21 documented as of this encounter
--- OUTSIDE RECORDS SUMMARY | 2024-06-11 18:10 | XMS_ITS | Encounter Summary ---
Author Organization [facility] Address [address] [place] [address] Care Team Providers Care Oil Refiner Name Role Phone Unknown, Provider Primary Care Provider Encounter Details Date Type Department Care Team (Late st Contact Info) Description 12/26/2020 Lab Requisition [facility] Pathology & Laboratory Medicine - [facility] [address] [place] [address] Manisha Rosales, DO [address] [place], [place] [id number] Encounter for other general examination Social History Tobacco Use Types Packs/Day Years [...] Date/Time Associated Diagnosis Comments SURGICAL PATHOLOGY Today 12/26/2020 11 :15 EDT Encounter for other general examination documented in this encounter Results * SURGICAL PATHOLOGY (12/26/2020 11:15 EDT) Final Diagnosis A. ANUS, THROMBOSED MASS, EXCISION: - Thrombosed hemorrhoids 12/29/2020 15:07 EDT [facility] Attestation By the signature below, the attending physician certifies that they have 1) personally conducted a gross and/or microscopic examination of the described specimen(s), and/or personally interpreted the results of laboratory testing of the described specimen(s), and 2) personally rendered or confirmed the above diagnosis. 12/29/2020 15:07 EDT [facility] at 1507 Clinical History Thrombosed mass of anus 12/29/2020 15:07 EDT [facility] Gross Description A. Received in formalin labelled with proper patient identification (initials V, J) and thrombosed mass of anus are multiple fragments of pink-king to red-brown soft tissue (2.0 x 1.8 x 1.0 cm in aggregate). The specimen is entirely submitted in A1. ALISON STEINBERG(ASCP) 12/26/2020 16:20 12/29/2020 15:07 EDT [facility] Performing Lab [facility] 12/29/2020 15:07 T [facility] Scanned Images 12/29/2020 15:07 T [facility] Tissue ENTIRE ANUS / Unknown 12/26/2020 11:15 EDT 12/26/2020 16:10 EDT Manisha Rosales DO PATHOLOGY ORDERABLES [facility] [address] [place] [address] documented in this encounter Visit Diagnoses Diagnosis Encounter for other general examination documented in this encounter Care Teams Oil Refiner Relationship Specialty Start Date End Date Unknown, Provider, PCP - General 12/01/20 documented as of this encounter
--- OUTSIDE RECORDS SUMMARY | 2024-06-11 18:10 | XMS_ITS | Encounter Summary ---
[place] [address] Care Team Providers Care Seed Core Operator Name Role Phone Domenica Atkins APRN Primary Care Provider [phone] Encounter Details Date Type Department Care Team (Late st Contact Info) Description 12/20/2021 Telephone Cardiology at [address] [phone] Domenica Bailey LNA Social History Tobacco Use Types Packs/Day Years Used Date Smoking Tobacco: Never Assessed Sex and Gender Information Value Date Recorded Sex Assigned at Not on file Gender Identity Not on file Sexual Orientation Not on file documented as of this encounter Miscellaneous Notes * Telephone Encounter - Domenica Bailey LNA - 12/20/2021 10:39 AM EDT *Left message asking patient to bring an updated medication list for their upcoming Clinic Visit on12/27/[address] Julian. *Labs are in with ED notes of [facility] in [facility] (11/21). *Return Call from patient: *He has had other testing since ED Visit in 11/21. These testings were completed at [facility] as well: *Echo at [facility] recently 12/12 *Holter just turned in most likely will be unavailable for visit he stated. *Ekg 12/22 *Xray of heart 12/22 *Indu Iqbal Roll Hauler, recent Consultation documented in this encounter Plan of Treatment Upcoming Encounters Date Type Department Care Team (Late st Contact Info) Description 12/23/2024 3:30 PM EDT Office Visit Cardiology at [address] [place] [address] Carlos Eduardo Quan, ALISON [facility] [place] [address] documented as of this encounter Visit Diagnoses Not on filedocumented in this encounter Care Teams Seed Core Operator Relationship Specialty Start Date End Date Domenica Atkins APRN PCP - General Family Medicine 11/21/21 documented as of this encounter
--- OUTSIDE RECORDS SUMMARY | 2024-06-11 18:10 | XMS_ITS | Encounter Summary ---
Author Organization [facility] Address [address] [place] [address] Care Team Providers Care Tanning Solution Maker Name Role Phone Unknown, Provider Primary Care Provider Encounter Details Date Type Department Care Team (Late st Contact Info) Description 12/06/2020 Lab Requisition [facility] Pathology & Laboratory Medicine - [facility] [address] [place] [address] Outr Resulting Lab, Provider Social History Tobacco Use Types Packs/Day Years [...] Procedure Name Priority Date/Time Associated Diagnosis Comments PSA TOTAL, DIAGNOSTIC Routine 12/06/2020 9:05 EDT documented in this encounter Results * PSA TOTAL, DIAGNOSTIC (12/06/2020 9:05 EDT) PSA 0.3 0.0 - 6.5 ng/mL 12/06/2020 21:[address] [facility] Blood VENOUS BLOOD / Unknown 12/06/2020 9:05 EDT 12/06/2020 20:[address] [facility] - 12/06/2020 21:55 EDT NOTE: Serum PSA concentration should not be interpreted as absolute evidence for the presence or absence of malignant disease. Assayed on Siemens ADVIA Splice Machineaur XPT using chemiluminescent technology.??Values obtained by using different assay methods cannot be used interchangeably. Provider Outr Resulting Lab CHEMISTRY & BLOOD GAS ORDERABLES [facility] [address] [place] [address] documented in this encounter Visit Diagnoses Not on filedocumented in this encounter Care Teams Tanning Solution Maker Relationship Specialty Start Date End Date Unknown, Provider, PCP - General 12/01/20 documented as of this encounter
--- OUTSIDE RECORDS SUMMARY | 2024-06-11 18:10 | XMS_ITS | Referral Summary ---
Author Organization [facility] Address [address] [place] [address] Care Team Providers Care Decorating Machine Operator Name Role Phone Unknown, Provider Primary Care Provider Social History Tobacco Use Types Packs/Day Years Used Date Smoking Tobacco: Never Assessed Interpersonal Safety Answer Date Record ed Physically Hurt Never 12/06/2020 Verbally Threaten Not on file 12/06/2020 Sex and Gender Information Value Date Recorded Sex Assigned at Not on file Gender Identity Not on file Sexual Orientation Not on file Plan of Treatment Not on file Care Teams Decorating Machine Operator Relationship Specialty Start Date End Date Unknown, Provider, PCP - General 12/01/20
--- OUTSIDE RECORDS SUMMARY | 2024-06-11 18:10 | XMS_ITS | Encounter Summary ---
[place] [address] Care Team Providers Care Dresser Tender Name Role Phone Raydayron Domenica Dayron AGUILAR Primary Care Provider [phone] Reason for Referral * Consultation (Routine) - Closed Specialty Diagnoses / Procedures Referred By Valeria t Referred To Contact Hematology and Oncology Diagnoses Drug-induced ITP Adeola Johnson MD [facility] [place] [address] [facility] [address] [address] [place] [address] Referral ID Status Reason Start Date Expiration Date V isits Requested Visits Authorized [id number] Closed Consult, Test & Treat 03/11/2022 03/11/2023 1 1 Reason for Visit * Reason Comments Shortness of Breath * Auth/Cert Specialty Diagnoses / Procedures Referred By Contac t Referred To Contact Diagnoses CHF (congestive heart failure) Chronic atrial fibrillation Jorge Deutsch MD [facility] [place] [address] [facility] Referral ID Status Reason Start Date Expiration Date Visits Re quested Visits Authorized [id number] 1 1 Encounter Details Date Type Department Care Team (Latest Contact Info) Description 02/28/2022 10:48 AM EDT - 03/11/2022 2:12 PM EDT Hospital Encounter Cardiac Special Care Unit [facility] [place] [address] Morgan Everett MD [facility] [place] [address] Jorge Deutsch MD [facility] [place] [address] Martir Rios MD [facility] [place] [address] Virginia Chris MD [facility] [place] [address] CHF (congestive heart failure) (Primary Dx); Chronic atrial fibrillation; Typical atrial flutter; Longstanding persistent atrial fibrillation; Drug-induced ITP Discharge Disposition: Home Social History Tobacco Use Types Packs/Day Years Used Date Smoking Tobacco: Never Smokeless Tobacco: Never Alcohol Use Standard Drinks/Week Comments Not Currently 0 (1 standard drink = 0.6 oz pur e alcohol) Sex and Gender Information Value Date Recorded Sex Assigned at Not on file Gender Identity Not on file Sexual Orientation Not on file documented as of this encounter Last Filed Vital Signs Vital Sign Reading Time Taken Comments Blood Pressure 111/74 03/11/2022 7:26 AM EDT Pulse 64 03/11/2022 7:26 AM EDT Temperature 36.4 ??C (97.5 ??F) 03/11/2022 7:26 AM ED T Respiratory Rate 18 03/11/2022 4:10 AM EDT Oxygen Saturation 97% 03/11/2022 7:26 AM EDT Inhaled Oxygen Concentration - - Weight 102.4 kg (225 lb 12 oz) 03/11/2022 6:07 A M EDT Height 170.2 cm (5' 7) 02/28/2022 8:00 PM EDT Body Mass Index 35.36 02/28/2022 8:00 PM EDT documented in this encounter Discharge Summaries * Adeola Johnson MD - 03/11/2022 2:12 PM EDT Images from the original note were not included. Discharge Summary Patient Name: Kelly Shell Patient Age: 72 y.o. Language: American Race: White Ethnicity: Not nor Admit date: 02/28/2022 Discharge date and time: 03/11/2022 2:18 PM Attending Physician: No att. providers found Discharge Physician: Adeola Johnson MD Follow-up Recommendations for Providers: - Follow up BMP and CBC in one week - Please reach out to hematology if platelets <20 K or patient reports bleeding issues; monitor for melena, hematochezia. - Please reach out to cardiology if CESAR on next week's labs, digoxin is renally cleared. - T2DM, A1c 7.5% follow up and consider additional medications for tighter glucose control - Atrial Fibrillation well controlled with digoxin and metoprolol 100 mg XL, if complaints of bradycardia (lightheadness or dizziness) please decrease dose of metop XL first. - Patient will have follow up with hematology for drug induced ITP - Will see EP for ablation in May/ June time range due to need for amiodarone wash out period. New medications: - Digoxin 125 mcg qd Inpatient Provider Contact Information: For questions regarding this document or issues relating to this hospitalization on the Medical Service, please contact your inpatient physician through the [facility] . Issues afterhours and on weekends will be handled by the Hospitalist staff on-call. Discharge Diagnoses (Hospital Problems) and Secondary Diagnoses (Chronic Problems): Active Hospital Problems Diagnosis ??? Atrial fibrillation ??? Acute systolic heart failure ??? Drug-induced ITP ??? JEEVAN on CPAP ??? Macrocytic anemia ??? Status post ablation of atrial flutter 01/02/2022 ??? Type 2 diabetes mellitus Resolved Hospital Problems Diagnosis Date Resolved ??? Acute hypoxemic respiratory failure 03/02/2022 There are no active non-hospital problems to display for this patient. Operations/Major Procedures: Operations: Other Major Procedures: None History of Presentation: Kelly Shell is a 72 y.o. male with hx of T2DM HLD, GERD, BPH, Aflutter s/p ablation and DCCVon 01/02/22 recently switched for eliquis to xarelto, JEEVAN not on CPAP who presents for SOB 2/2 afib and ADHF. ?? Patient is poor historian but states he has had worsening SOB for the past few months. His SOB as been worse at rest and with exertion. He denies have chest pain at any time. He reports he had a fallrecently onto his R leg (without any orthopedic injury) and had a follow up appointment with his PCP yesterday where she orders labs and did an EKG. She called him this morning saying his EKG showed aflutter and that he should come to the ED. ?? In the ED T 97.7, Hr 120s-140s, BP 117/88, sating 98% on RA. WBC 11.6, Hb 13.5, Plt 108, Na 139, K 4.5, Cr 0.95, Mg 0.77. EKG showed Afib with RVR with VR 153. CXR showed pulmonary edema. TTE showed EF 23% with severe global hypokinesis, TV moderately decreased, severe dilated LA, moderate MR and TR. He received IV lasix 40 mg with good UOP. ?? Patient noted his pulse was elevated to 144 in October. He went to the ED where TTE and CXR were normal. EKG showed aflutter with 2-1 AV block. He was recommended for admission but declined. He presented to [place] clinic [place] [facility] with complaints of SOB and worsening insomnia as well as PND. He underwent ablation and DCCV on 01/02 at [facility]. He presented to EP clinic at [facility] on 01/10 were he wasfound to be in afib. Admission for sotalol load was planned for January but this was reportedly stopped due to him missing a dose of eliquis following his fall. He was recently switched to xarelto for cost. Hospital Course: #Afib with RVR #Tachymyopathy #HFrEF, EF recovery to 45% #Acute Hypoxic Respiratory Failure- Resolved. On admission, patient was loaded with amiodarone and subsequently converted to NSR while on anticoagulation. He required aggressive diuresis, initially with lasix and torsemide, later being transitioned to Bumex, however this was discontinued once EF had recovered with resolution of his tachycardia. He remained in NSR for several days, however ultimately converted back into afib with RVR. Metop XL was subsequently increased to 200 mg daily and digoxin was loaded. Amiodarone was considered a failed intervention in addition to the fact that it was felt to have caused drug induced ITP and therefore was discontinued. Tachyarrhythmia resolved with digoxin 125 mcg qd and metop 100 mg XL daily. On day of discharge, he was resumed on home Xarelto 20 mg qd, see details below. #Thrombocytopenia Patient initially admitted 02/28 with thrombocytopenia of 108. HIT was invoked, however his T score was low and he had not received heparin since December, lovenox had been administered though this did notcoincide with his thrombocytopenia. Torsemide and amiodarone had been initiated on 03/03 with ongoingresidual decline in platelets. Hematology was consulted, they recommended IVIG (03/06, 03/07, and 03/08) and decadron 16 mg daily for four days with stabilization of platelets. He was maintained on intermittent dose lovenox throughout due to risk of stroke in light of recent DCCV, given that his platelets were at goal of >40 on day of discharge, he was resumed on home xarelto. Exact source of drug induced ITP remained elusive. #Type II Diabetes A1c 7.5 % on admission. Sugars well controlled on home regimen. Vital Signs at Discharge: BP: 111/74, Heart Rate: 64, Temp: 36.4 ??C (97.5 ??F), Resp: 18, BMI (Calculated): 40.39 Height: 170.2 cm (5' 7) (02/28/221999) Weight: 102.4 kg (225 lb 12 oz) (03/11/22606) Functional and Cognitive Status: No functional or cognitive issues identified Important Studies and Lab Data: Labs: Recent Labs 03/11/22 0435 03/10/22 0357 03/09/22 0414 WBC 11.9* 11.4* 10.2* HGB 13.3* 13.7 13.7 HCT 39.8* 40.9 40.9 PLATELET 46* 31* 20* Recent Labs 03/11/22 0435 03/10/22 0357 03/09/22 0414 NA 136 133* 132* K 4.6 4.8 4.9 CL 102 98 97* CO2 23 24 25 BUN 29* 38* 39* CREATININE 0.82 0.97 1.12 Recent Labs 03/05/22 0923 AST 24 ALT 25 ALKPHOS 89 BILITOT 1.7* BILIDIR 0.4* Recent Labs 03/11/2243403/10/2235603/09/22 0414 CALCIUM 9.2 9.3 9.3 MAGNESIUM 0.82 0.86 0.85 No results for input(s): CK, TROPONINT in the last 168 hours. No results for input(s): PT, PTT, INR in the last 168 hours. Pending Studies and Lab Data: none Discharge Conditions/Prognosis: Upon discharge the pt is hemodynamically stable, fully ambulatory without requiring supplemental oxygen, afebrile and pain free. Discharge to: home Updated Allergies/ADRs: Allergies Allergen Reactions ??? Sulfone Other (See Comments) Thrombocytopenia- history of drug induced ITP with amiodarone vs torsemide vs other Immunizations Given this Hospitalization: There is no immunization history on file for this patient. Discharge Medications: Your Medications New Medications Dose Details * digoxin 125 mcg (0.125 mg) Tab Commonly known as: Lanoxin Take 1 tablet by mouth daily for 3 days. Start taking on: March 12, 2022 125 mcg Quantity: 3 tablet Refills: 0 * digoxin 125 mcg (0.125 mg) Tab Commonly known as: Lanoxin Take 1 tablet by mouth daily for 90 days. Indications: ventricular rate control in atrial fibrillation Start taking on: March 13, 2022 125 mcg Quantity: 90 tablet Refills: 0 * This list has 2 medication(s) that are the same as other medications prescribed for you. Read thedirections carefully, and ask your doctor or other care provider to review them with you. Continued medications with new dosing Dose Details metoprolol succinate XL 100 mg Tablet sr Commonly known as: Toprol-XL Take 1 tablet by mouth daily. What changed: ?? medication strength ?? how much to take 100 mg Quantity: 90 tablet Refills: 3 Continued medications, unchanged Dose Details glimepiride 4 mg Tab Commonly known as: AMARYL Take 4 mg by mouth 2 times daily. 4 mg Refills: 0 insulin detemir U-100 100 unit/mL (3 mL) Inpn Commonly known as: Levemir Inject 50 Units subcutaneously daily. 50 Units Refills: 0 lactobacillus rhamnosus (GG) 10 billion cell Cap Commonly known as: CULTURELLE Take 1 capsule by mouth daily. 1 capsule Refills: 0 metFORMIN 1,000 mg Tab Commonly known as: Glucophage Take 1,000 mg by mouth 2 times daily (with meals). 1,000 mg Refills: 0 multivitamin Tab Commonly known as: THERAGRAN Take [...] mg) Tbsr Commonly known as: Urocit Take by mouth daily. Refills: 0 pravastatin 20 mg Tab Commonly [...] Take by mouth as needed. Refills: 0 zolpidem 5 mg Tab Commonly known as: Ambien Take 5 mg by mouth nightly as needed for Sleep. Patient does not know if he is taking 5 mg Refills: 0 Smoking Status at Discharge: Social History Tobacco Use Smoking Status Never Smoker Smokeless Tobacco Never Used Instructions Given to Patient at Discharge: Patient Instructions Instructions on Discharge to Home Why you were hospitalized - You were hospitalized for abnormal rhythm of your heart called atrial fibrillation. You required rate control with a combination of medications and cardioversion to provide rate control. You were started on a medication called Amiodarone to help with this. Call your doctor or seek medical attention if you develop the following - chest pain, shortness of breath, fever, cough, major bleeding from your GI tract, or thunder clap headache with vision changes. Activity level - no restrictions Diet - no change in previous diet Driving - please avoid driving for a few days until you feel more back to your baseline. Shower/Bath - permitted Changes in Your Medications: New Medications: Digoxin 125 mcg daily (1 pill)- Currently, you have two scripts for this medication because your pharmacy locally isn't open on Sundays. Please pickling drum operator a three day prescript from [facility] and fill this medication at your local pharmacy as soon as you are able. Medication dose changes: We increased the dose of your metoprolol to 100 mg daily. You may finish your pill bottle at home as follows: the pills you currently have are 25 mg each, please take four of these to equate to 100 mg daily until you pick the new prescription which will be a single pill that is 100 mg daily. Your Medications New Medications Dose Details * digoxin 125 mcg (0.125 mg) Tab Commonly known as: Lanoxin Take 1 tablet by mouth daily for 3 days. Start taking on: March 12, 2022 125 mcg Quantity: 3 tablet Refills: 0 * digoxin 125 mcg (0.125 mg) Tab Commonly known as: Lanoxin Take 1 tablet by mouth daily for 90 days. Indications: ventricular rate control in atrial fibrillation Start taking on: March 13, 2022 125 mcg Quantity: 90 tablet Refills: 0 * This list has 2 medication(s) that are the same as other medications prescribed for you. Read thedirections carefully, and ask your doctor or other care provider to review them with you. Continued medications with new dosing Dose Details metoprolol succinate XL 100 mg Tablet sr Commonly known as: Toprol-XL Take 1 tablet by mouth daily. What changed: ?? medication strength ?? how much to take 100 mg Quantity: 90 tablet Refills: 3 Continued medications, unchanged Dose Details glimepiride 4 mg Tab Commonly known as: AMARYL Take 4 mg by mouth 2 times daily. 4 mg Refills: 0 insulin detemir U-100 100 unit/mL (3 mL) Inpn Commonly known as: Levemir Inject 50 Units subcutaneously daily. 50 Units Refills: 0 lactobacillus rhamnosus (GG) 10 billion cell Cap Commonly known as: CULTURELLE Take 1 capsule by mouth daily. 1 capsule Refills: 0 metFORMIN 1,000 mg Tab Commonly known as: Glucophage Take 1,000 mg by mouth 2 times daily (with meals). 1,000 mg Refills: 0 multivitamin Tab Commonly known as: THERAGRAN Take [...] mg) Tbsr Commonly known as: Urocit Take by mouth daily. Refills: 0 pravastatin 20 mg Tab Commonly [...] Take by mouth as needed. Refills: 0 zolpidem 5 mg Tab Commonly known as: Ambien Take 5 mg by mouth nightly as needed for Sleep. Patient does not know if he is taking 5 mg Refills: 0 Follow-up: Please call your Primary care provider to schedule hospital discharge follow up within one week of discharge, we recommend you get your blood counts and platelet counts checked. Hematology will call to schedule follow up regarding your platelets Future Appointments Date Time Provider Department Center 04/12/2022 10:00 AM Orlin Trujillo MD [facility] 07/11/2022 1:40 PM Curtis Arredondo MD [facility] Your Inpatient Doctor: MD Jorge Mehta MD Alina M Bischin, MD Your Primary Care Provider: Domenica Atkins, FRONT END MANAGER [phone] For questions regarding this document or issues relating to this hospitalization on the Medical Service, please contact your inpatient physician through the [facility] . Issues afterhours and on weekends will be handled by the Hospitalist staff on-call. General Instructions Future Appointments and Orders Future Appointments and Orders Future Appointments Provider Department Dept Phone 04/12/2022 10:00 AM Orlin Trujillo MD Cardiology at [facility] Arrive at: [employer] [facility] [address] [phone] 07/11/2022 1:40 PM Curtis Arredondo MD Cardiology at [facility] Arrive at: [facility] [address] [phone] Future Orders Complete By Expires Referral to Hematology and Oncology [REF33 Custom] As directed Process Instructions: If no progress note charted, please enter Clinical details in comments. Scheduling Instructions: Questions: Referring to Hemophilia/thrombosis Clinic?: No My question or request is: Drug induced ITP s/p hospitalization Discharge References/Attachments None documented in this encounter Discharge Instructions * Discharge Instructions* Adeola Johnson MD - 03/02/2022 7:28 AM EDT * Patient Instructions* Adeola Johnson MD - 03/02/2022 7:19 AM EDT Images from the original note were not included. Instructions on Discharge to Home Why you were hospitalized - You were hospitalized for abnormal rhythm of your heart called atrial fibrillation. You required rate control with a combination of medications and cardioversion to provide rate control. You were started on a medication called Amiodarone to help with this. Call your doctor or seek medical attention if you develop the following - chest pain, shortness of breath, fever, cough, major bleeding from your GI tract, or thunder clap headache with vision changes. Activity level - no restrictions Diet - no change in previous diet Driving - please avoid driving for a few days until you feel more back to your baseline. Shower/Bath - permitted Changes in Your Medications: New Medications: Digoxin 125 mcg daily (1 pill)- Currently, you have two scripts for this medication because your pharmacy locally isn't open on Sundays. Please pickling drum operator a three day prescript from [facility] and fill this medication at your local pharmacy as soon as you are able. Medication dose changes: We increased the dose of your metoprolol to 100 mg daily. You may finish your pill bottle at home as follows: the pills you currently have are 25 mg each, please take four of these to equate to 100 mg daily until you pick the new prescription which will be a single pill that is 100 mg daily. Your Medications New Medications Dose Details * digoxin 125 mcg (0.125 mg) Tab Commonly known as: Lanoxin Take 1 tablet by mouth daily for 3 days. Start taking on: March 12, 2022 125 mcg Quantity: 3 tablet Refills: 0 * digoxin 125 mcg (0.125 mg) Tab Commonly known as: Lanoxin Take 1 tablet by mouth daily for 90 days. Indications: ventricular rate control in atrial fibrillation Start taking on: March 13, 2022 125 mcg Quantity: 90 tablet Refills: 0 * This list has 2 medication(s) that are the same as other medications prescribed for you. Read thedirections carefully, and ask your doctor or other care provider to review them with you. Continued medications with new dosing Dose Details metoprolol succinate XL 100 mg Tablet sr Commonly known as: Toprol-XL Take 1 tablet by mouth daily. What changed: medication strength how much to take 100 mg Quantity: 90 tablet Refills: 3 Continued medications, unchanged Dose Details glimepiride 4 mg Tab Commonly known as: AMARYL Take 4 mg by mouth 2 times daily. 4 mg Refills: 0 insulin detemir U-100 100 unit/mL (3 mL) Inpn Commonly known as: Levemir Inject 50 Units subcutaneously daily. 50 Units Refills: 0 lactobacillus rhamnosus (GG) 10 billion cell Cap Commonly known as: CULTURELLE Take 1 capsule by mouth daily. 1 capsule Refills: 0 metFORMIN 1,000 mg Tab Commonly known as: Glucophage Take 1,000 mg by mouth 2 times daily (with meals). 1,000 mg Refills: 0 multivitamin Tab Commonly known as: THERAGRAN Take [...] mg) Tbsr Commonly known as: Urocit Take by mouth daily. Refills: 0 pravastatin 20 mg Tab Commonly [...] Take by mouth as needed. Refills: 0 zolpidem 5 mg Tab Commonly known as: Ambien Take 5 mg by mouth nightly as needed for Sleep. Patient does not know if he is taking 5 mg Refills: 0 Follow-up: Please call your Primary care provider to schedule hospital discharge follow up within one week of discharge, we recommend you get your blood counts and platelet counts checked. Hematology will call to schedule follow up regarding your platelets Future Appointments Date Time Provider Department Center 04/12/2022 10:00 AM Orlin Trujillo MD [facility] 07/11/2022 1:40 PM Curtis Arredondo MD [facility] Your Inpatient Doctor: MD Jorge Mehta MD Alina M Bischin, MD Your Primary Care Provider: Domenica Atkins, FRONT END MANAGER [phone] For questions regarding this document or issues relating to this hospitalization on the Medical Service, please contact your inpatient physician through the [facility] . Issues afterhours and on weekends will be handled by the Hospitalist staff on-call. documented in this encounter Medications at Time [...] Dysfunction. digoxin (Lanoxin) 125 mcg (0.125 mg) TabletIndications:marvin tricular rate control in atrial fibrillation Take 1 tablet by mouth daily for 90 days. Indications: ventricular rate control in atrial fibrillation 90 tablet 03/13/2022 06/11/2022 digoxin (Lanoxin) 125 mcg (0.125 mg) Tablet Take 1 tablet by mouth daily for 3 days. 3 tablet 03/12/2022 03/15/2022 omega-3 acid ethyl esters (Lovaza) 1 gram [...] as of this encounter Progress Notes * Virginia Chris MD - 03/11/2022 10:12 AM EDT Cardiology - Attending Day of Discharge Documentation Patient ID: Kelly Shell is a 72 y.o. male with a history of afib/flutter, JEEVAN, DM2, HLD admitted with acute decompensated heart failure secondary to tachymyopathy in the setting of afib/RVR with course complicated by drug induced severe thrombocytopenia now improving and able to tolerate anticoagulation. Interval History: - Platelets up to 46 today! - No symptoms, no concerns - Stable medical regimen Discharge diagnosis Active Hospital Problems Diagnosis ??? Atrial fibrillation ??? Drug-induced ITP ??? JEEVAN on CPAP ??? Acute systolic heart failure ??? Macrocytic anemia ??? Status post ablation of atrial flutter 01/02/2022 ??? Type 2 diabetes mellitus Resolved Hospital Problems Diagnosis Date Resolved ??? Acute hypoxemic respiratory failure 03/02/2022 Secondary Issues There are no active non-hospital problems to display for this patient. I have personally seen and examined the patient and they are ready for discharge. I spent >30 minutes (Day of Discharge Code 50969) involved in the final examination of the patient, discussion of the hospital stay, instructions for continuing care to all relevant caregivers, and preparation of discharge records, prescriptions and referral forms. Plans ? Discharge to home ? Follow-up scheduled with Cardiology (Dr. Trujillo) and EP Cardiology (Dr. Arredondo) ? Please see the Discharge Summary for complete details of any medication changes and additional plans. * Katie Hay RN - 03/10/2022 3:53 PM EDT OUTCOME EVALUATION NOTE: OUTCOME SUMMARY: Patient had an uneventful shift. AOx4, no reports of CP or SOB. Denies pain. Remains on RA. Ambulated independently AFIB on tele. See scanned docs. Consults: Hematology/Oncology. PLAN MOVING FORWARD: Monitor platelet. Continue to actively monitor. D/C planning as appropriate INDIVIDUALIZED FALL PREVENTION INTERVENTIONS: Patient-specific fall risk factors per assessment: [current deficits]: tele wires, unfamiliar environment. Assistance [level of assistance required for transfers and ambulation]: SBA Supervision [direct monitoring required during toileting and ADLs]: Eyes only Surveillance [continuous indirect monitoring]: Tele, purposeful rounding, call montero within reach Patient-specific fall prevention interventions for sensory deficits provided, if applicable: Room near RN station, Door open, non-skin socks on when OOB, Lighting adjusted for specific tasks/activities, bed in lowest locked position. CARE PLAN GOAL OUTCOME EVALUATION: Ongoing * Josh Bertrand MD - 03/10/2022 1:44 PM EDT Hematology Follow Up Note 72M with PMH atrial flutter s/p ablation and DCCV in 12/2021 on Xarelto, history of DM, GERD, JEEVAN onCPAP who presented for decompensated heart failure 2/2 atrial flutter now s/p cardioversion on 03/02/22 but reverted back to Afib. Hematology was consulted for worsening thrombocytopenia. The etiology of the thrombocytopenia is suspected to be drug induced ITP. The course of DITP may result in severe thrombocytopenia with platelet count <20K and/or bleeding. The agent in question is thought to be either amiodarone or torsemide. Torsemide has been switched to bumex. Amiodarone hasalso been discontinued, although the half life of amiodarone may last several weeks. The platelet trajectory course has been reviewed. Patient has completed IVIG 1000mg/kg x2 as well as 4 days of dexamethasone as of today. On average, one can expect to see a platelet response 2-3 days after completion of treatment. Platelets had reached santiago at ~20K 1-2 days ago and today has shown improvement to 30K. Regarding anticoagulation, patient may continue intermediate dose lovenox at 60mg daily due to riskof VTE given DCCV. Since there is an improvement in platelet count and no bleeding, therapeutic lovenox or DOAC may be considered once platelets are above 40K and uptrending, ideally >50K. From a hematologic perspective, may discharge and follow up with outpatient hematology once platelets are >20K and there are no signs of bleeding. Recommendations -Completed IVIG 1g/kg 03/06-03/07 and dexamethasone 03/07-03/10. Patient had reached santiago at about 20K andnow show improvement to 30K -If patient's cardiac issues are stable and ready for discharge, may send home if platelets >20Kand if there are no signs of bleeding. -While inpatient, continue intermediate lovenox (60mg daily) and may switch to therapeutic lovenox or DOAC once platelets are above 40K and uptrending, ideally >50K (this transition can be done asoutpatient). -Please place referral to hematology/oncology outpatient once ready for discharge This has been communicated to the primary team. ?? Patient discussed with Hematology attending Dr. Bertrand. Jake Gonzales MD Hematology/Oncology Fellow [facility] ++++++++++++++++++++++++++++++++++++++++++++++++++++++++++++++++ Heme Attending Addendum: I agree with the recommendations above which were formulated with me. Josh Bertrand MD PhD, Hematology Section, [facility] Pager - [phone] * Terri Tomlinson MD - 03/10/2022 6:15 AM EDT Inpatient Cardiology Progress Note Patient Name: Kelly Shell Date of Admission: 02/28/2022 ( Hospital Day 10 days ) Service: S1 ID: Kelly Shell is a 72 y.o. male with hx of T2DM HLD, GERD, BPH, Aflutter s/p ablation and DCCV on 01/02/22 recently switched for eliquis to xarelto, JEEVAN not on CPAP who presents for SOB. Active Problems: Active Hospital Problems Diagnosis ??? Atrial fibrillation ??? Drug-induced ITP ??? JEEVAN on CPAP ??? Acute systolic heart failure ??? Macrocytic anemia ??? Status post ablation of atrial flutter 01/02/2022 ??? Type 2 diabetes mellitus Resolved Hospital Problems Diagnosis Date Resolved ??? Acute hypoxemic respiratory failure 03/02/2022 24 hr events: Overnight - No acute events overnight ROS: Denies CP, SOB, palpitations, PND, Orthopnea, dizziness/LH, LE swelling or pain, n/v, abd pain. Physical Exam: Last value Range last 24 hrs Temperature Temp: 36.7 ??C (98.1 ??F) Temp: [36.5 ??C (97.7 ??F)-36.7 ??C (98.1 ??F)] Heart Rate Heart Rate: 61 Heart Rate: [54-64] Blood Pressure BP: 114/67 BP: (106-125)/(61-73) Respiratory Rate Resp: 18 Resp: [18] SpO2 SpO2: 97 % SpO2: [94 %-97 %] Weight: Patient Vitals for the past 168 hrs: Weight 03/10/22 0600 102.6 kg (226 lb 3.1 oz) 03/09/22 0536 102.2 kg (225 lb 5 oz) 03/08/22 0508 101.9 kg (224 lb 10.4 oz) 03/07/22 0528 100.8 kg (222 lb 3.6 oz) 03/06/22 0410 101.3 kg (223 lb 5.2 oz) 03/05/22 043 102.5 kg (226 lb) 03/04/22 05 104.9 kg (231 lb 4.2 oz) Admit Weight: 113.4 kg Yesterday's net I/O's: Intake/Output Summary (Last 24 hours) at 03/10/2022 0909 Last data filed at 03/10/2022 0800 Gross per 24 hour Intake 500 ml Output 2425 ml Net -1925 ml Net I/O's since admission: Patient Vitals for the past 168 hrs: Weight 03/10/22 0600 102.6 kg (226 lb 3.1 oz) 03/09/22 0536 102.2 kg (225 lb 5 oz) 03/08/22 0508 101.9 kg (224 lb 10.4 oz) 03/07/22 0528 100.8 kg (222 lb 3.6 oz) 03/06/22 0410 101.3 kg (223 lb 5.2 oz) 03/05/22 0436 102.5 kg (226 lb) 03/04/22 0526 104.9 kg (231 lb 4.2 oz) Gen: pleasant male in NAD CV: RRR, no m/r/g, JVP 8 Resp: CTAB comfortably on RA Abd: nondistended, soft, NT, nabs throughout Ext: trace pitting edema on right leg Neuro: alert and responsive. Labs Recent Labs 03/10/22 0357 03/09/22 0414 03/08/22 0341 WBC 11.4* 10.2* 3.0* HGB 13.7 13.7 14.4 HCT 40.9 40.9 44.3 PLATELET 31* 20* 19* Recent Labs 03/10/22 0357 03/09/22 0414 03/08/22 0341 NA 133* 132* 132* K 4.8 4.9 4.7 CL 98 97* 96* CO2 24 25 24 BUN 38* 39* 27* CREATININE 0.97 1.12 1.00 Recent Labs 03/05/22 0923 AST 24 ALT 25 ALKPHOS 89 BILITOT 1.7* BILIDIR 0.4* Recent Labs 03/10/22 0357 03/09/22 0414 03/08/22 0341 CALCIUM 9.3 9.3 8.9 MAGNESIUM 0.86 0.85 0.79 Recent Labs 03/03/22 1236 INR 2.0 PT 22.5* PTT 46* No results for input(s): CK, TROPONINT in the last 168 hours. Scheduled Medications: ??? metoprolol succinate XL 100 mg Oral Daily ??? insulin lispro 2-12 Units Subcutaneous TID AC ??? insulin lispro 0-8 Units Subcutaneous TID WC ??? insulin glargine (Lantus;Semglee) (100 unit/mL) subcutaneous injection 14 Units Subcutaneous Nightly ??? enoxaparin 60 mg Subcutaneous Daily ??? digoxin 125 mcg Oral Daily ??? metFORMIN 1,000 mg Oral BID WC ??? polyethylene glycoL (MIRALAX) oral powder 17 g Oral Daily ??? sodium chloride 0.9 % (flush) 5 mL Intravenous BID PRN Medications: glucose 40% oral geL OR dextrose 10% OR glucagon, ondansetron, potassium chloride ER OR[DISCONTINUED] potassium chloride ER, sodium chloride 0.9 % (flush), lidocaine Assessment: Kelly Shell is a 72 y.o. male with hx of T2DM HLD, GERD, BPH, Aflutter s/p ablation and DCCV on 01/02/22 recently switched for eliquis to xarelto, JEEVAN not on CPAP who presents for SOB. ?? Patient had ablation for aflutter in December but subsequently developed afib there after. He had sotalol load planned for January but it was canceled because he missed a dose of his eliquis. Failed rhythm control with Amiodarone this morning. Will stop amio in light of worsening thrombocytopenia due to c/f drug induced ITP and continue rate control with metop tartrate alone. EP is aware and will plan to discuss afib ablation with him today. Currently on metoprolol for rate control seems to tolerate it. Patient is still tachycardic will start digoxin for additional rate control. Will hold Bumex since patient appears euvolemic. Consider .5 tomorrow depending on output today Will continue to monitor BP Communication with Heme: Lovonox 60 (therapeautic anticoagulation for a-fib) unitl <10 Received IVIG : Since patient has been tachycardic: Digoxin Will continue communication with heme regarding anticoagulation 03/10 Patient HR appears to be tolerating current dig and metop Platelet today up trended Communication w/ heme: can discharge if platelet >20 and w/o bleeding can f/u out patient from heme standpoint Plan 03/10 lovonox 60 DC if platelet <10 Continue metop XL to 100 F/u vital for bradycardia Cont Dig 125 Dig level on Saturday #Atrial Fibrillation w RVR s/p SYDNEY cardioversion #hx Aflutter s/p Ablation #new HFrEF ~LVEF 45% #ADHF - Hold xarelto 20 mg qPM - TTE cardioversion completed - Metoprolol Succinate 100 mg - Digoxin 125 mg qd b/c BP soft - Will check dig level in 96hr (03/11) ?? #HLD - home pravastatin 20 mg qD #JEEVAN - Off CPAP #T2DM - SSI - Glargine 12u ?? 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 vs splenic sequestration - Heme consulted and following - hapto 164 - fibrinogen 553, - LDH 239 - Coags wnls - IPF inappropriately low - Hold Rivaroxiban - IVIG Given - Dexamethasone 16 mg qd 4/4 doses today - Lovonox 60mg #Housekeeping: - DVT PPx: none - Diet: CC2 Code Status: Attempt Cardiopulmonary Resuscitation - Inpatient Terri Tomlinson MD Internal Medicine PGY-1 Pager [phone], M1-S1 Service Associated attestation - Virginia Chris MD - 03/10/2022 8:44 PM EDT CARDIOLOGY ATTENDING NOTE Patient: Kelly Shell Date of Service: 03/10/2022 Date of Admission: 02/28/2022 Length of Stay Hospital Day 10 days Please see the below note by Dr. Tomlinson for details. I have interviewed and examined the patient independently and I concur with the assessment and plan as documented, with exceptions/additions/emphases as noted below. The case was discussed on cardiology rounds and we reviewed the plan of care with the team and patient. Platelets rising today now at 31; from Hematology perspective according to their note from the afternoon, would be okay to discharge however recommend against therapeutic anticoagulation until platelets are at least 40K and preferably 50K. He has a very clear indication to be on anticoagulation as soon as possible due to recent cardioversion to limit the risk of cardioembolic stroke. Therefore, will wait until platelets >40K and start therapeutic anticoagulation prior to discharging. Attending Attestation Please see Dr. Tomlinson's note for details of the patient history of presentation and data. I have discussed, reviewed and agree with the documented History, Physical findings, Assessment and Plan of care. I have examined the patient myself and personally reviewed all studies. In addition, I certify thatI am a D-H credentialed attending provider with admitting privileges and that the patient meets or has met medical necessity to require an inpatient IPI level of care meeting a minimum of two midnights or is on the [facility] inpatient only procedure list (status C) due to: severe thrombocytopenia with a requirement for therapeutic anticoagulation necessitating close monitoring. Virginia Chris MD Cardiovascular Medicine Personal Pager [phone] 03/10/2022 8:39 PM * Terri Tomlinson MD - 03/09/2022 6:15 AM EDT Inpatient Cardiology Progress Note Patient Name: Kelly Shell Date of Admission: 02/28/2022 ( Hospital Day 9 days ) Service: S1 ID: Kelly Shell is a 72 y.o. male with hx of T2DM HLD, GERD, BPH, Aflutter s/p ablation and DCCV on 01/02/22 recently switched for eliquis to xarelto, JEEVAN not on CPAP who presents for SOB. Active Problems: Active Hospital Problems Diagnosis ??? Atrial fibrillation ??? Drug-induced ITP ??? JEEVAN on CPAP ??? Acute systolic heart failure ??? Macrocytic anemia ??? Status post ablation of atrial flutter 01/02/2022 ??? Type 2 diabetes mellitus Resolved Hospital Problems Diagnosis Date Resolved ??? Acute hypoxemic respiratory failure 03/02/2022 24 hr events: Overnight - No acute events overnight ROS: Denies CP, SOB, palpitations, PND, Orthopnea, dizziness/LH, LE swelling or pain, n/v, abd pain. Physical Exam: Last value Range last 24 hrs Temperature Temp: 36.6 ??C (97.9 ??F) Temp: [36.5 ??C (97.7 ??F)-36.8 ??C (98.2 ??F)] Heart Rate Heart Rate: 55 Heart Rate: [55-68] Blood Pressure BP: 106/56 BP: (104-112)/(56-80) Respiratory Rate Resp: 18 Resp: [18] SpO2 SpO2: 93 % SpO2: [91 %-96 %] Weight: Patient Vitals for the past 168 hrs: Weight 03/09/22 0536 102.2 kg (225 lb 5 oz) 03/08/22 0508 101.9 kg (224 lb 10.4 oz) 03/07/22 0528 100.8 kg (222 lb 3.6 oz) 03/06/22 0410 101.3 kg (223 lb 5.2 oz) 03/05/22 0436 102.5 kg (226 lb) 03/04/22 0526 104.9 kg (231 lb 4.2 oz) 03/03/22 0341 110 kg (242 lb 8.1 oz) Admit Weight: 113.4 kg Yesterday's net I/O's: Intake/Output Summary (Last 24 hours) at 03/09/2022 0615 Last data filed at 03/09/2022 0400 Gross per 24 hour Intake 300 ml Output 1050 ml Net -750 ml Net I/O's since admission: Patient Vitals for the past 168 hrs: Weight 03/09/22 0536 102.2 kg (225 lb 5 oz) 03/08/22 0508 101.9 kg (224 lb 10.4 oz) 03/07/22 0528 100.8 kg (222 lb 3.6 oz) 03/06/22 0410 101.3 kg (223 lb 5.2 oz) 03/05/22 0436 102.5 kg (226 lb) 03/04/22 0526 104.9 kg (231 lb 4.2 oz) 03/03/22 0341 110 kg (242 lb 8.1 oz) Gen: pleasant male in NAD CV: RRR, no m/r/g, JVP 8 Resp: CTAB comfortably on RA Abd: nondistended, soft, NT, nabs throughout Ext: trace pitting edema on right leg Neuro: alert and responsive. Labs Recent Labs 03/09/22 0414 03/08/22 0341 03/07/22 0515 WBC 10.2* 3.0* 6.2 HGB 13.7 14.4 14.8 HCT 40.9 44.3 44.1 PLATELET 20* 19* 27* Recent Labs 03/09/22 0414 03/08/22 0341 03/07/22 0515 NA 132* 132* 134* K 4.9 4.7 3.5 CL 97* 96* 97* CO2 25 24 25 BUN 39* 27* 24* CREATININE 1.12 1.00 0.77* Recent Labs 03/05/22 0923 AST 24 ALT 25 ALKPHOS 89 BILITOT 1.7* BILIDIR 0.4* Recent Labs 03/09/22 0414 03/08/22 0341 03/07/22 0515 CALCIUM 9.3 8.9 8.9 MAGNESIUM 0.85 0.79 0.71 Recent Labs 03/03/22 1236 INR 2.0 PT 22.5* PTT 46* No results for input(s): CK, TROPONINT in the last 168 hours. Scheduled Medications: ??? insulin glargine (Lantus;Semglee) (100 unit/mL) subcutaneous injection 10 Units Subcutaneous Daily ??? enoxaparin 60 mg Subcutaneous Daily ??? insulin lispro 1-6 Units Subcutaneous TID AC ??? digoxin 125 mcg Oral Daily ??? dexAMETHasone 16 mg Oral Daily ??? metoprolol succinate XL 150 mg Oral Daily ??? metFORMIN 1,000 mg Oral BID WC ??? polyethylene glycoL (MIRALAX) oral powder 17 g Oral Daily ??? sodium chloride 0.9 % (flush) 5 mL Intravenous BID PRN Medications: glucose 40% oral geL OR dextrose 10% OR glucagon, ondansetron, potassium chloride ER OR[DISCONTINUED] potassium chloride ER, sodium chloride 0.9 % (flush), lidocaine Assessment: Kelly Shell is a 72 y.o. male with hx of T2DM HLD, GERD, BPH, Aflutter s/p ablation and DCCV on 01/02/22 recently switched for eliquis to xarelto, JEEVAN not on CPAP who presents for SOB. ?? Patient had ablation for aflutter in December but subsequently developed afib there after. He had sotalol load planned for January but it was canceled because he missed a dose of his eliquis. Failed rhythm control with Amiodarone this morning. Will stop amio in light of worsening thrombocytopenia due to c/f drug induced ITP and continue rate control with metop tartrate alone. EP is aware and will plan to discuss afib ablation with him today. Currently on metoprolol for rate control seems to tolerate it. Patient is still tachycardic will start digoxin for additional rate control. Will hold Bumex since patient appears euvolemic. Consider .5 tomorrow depending on output today Will continue to monitor BP Communication with Heme: Lovonox 60 (therapeautic anticoagulation for a-fib) unitl <10 Received IVIG : Since patient has been tachycardic: Digoxin Will continue communication with heme regarding anticoagulation Plan 03/09 Dig level lovonox 60 DC if platelet <10 Drop metop XL to 100 F/u vital for bradycardia Cont Dig 125 Dig level on Saturday #Atrial Fibrillation w RVR s/p SYDNEY cardioversion #hx Aflutter s/p Ablation #new HFrEF #ADHF - Hold xarelto 20 mg qPM - TTE cardioversion completed - Metoprolol Succinate 150 mg - stop Amiodarone load - Bumex held : likely euvolemic - Digoxin b/c BP soft - Will check dig level in 96hr #Possible CESAR Encourage fluid ?? #HLD - home pravastatin 20 mg qD #JEEVAN - Off CPAP #T2DM - SSI - Glargine 12u ?? 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 vs splenic sequestration - Heme consulted and following - hapto 164 - fibrinogen 553, - LDH 239 - Coags wnls - IPF inappropriately low - Hold Rivaroxiban - IVIG Given - Dexamethasone 16 mg qd - Lovonox 60mg #Housekeeping: - DVT PPx: none - Diet: CC2 Code Status: Attempt Cardiopulmonary Resuscitation - Inpatient Terri Fiordaliza Tomlinson MD Internal Medicine PGY-1 Pager [phone], M1-S1 Service Associated attestation - Virginia Chris MD - 03/09/2022 3:36 PM EDT CARDIOLOGY ATTENDING NOTE Patient: Kelly Shell Date of Service: 03/09/2022 Date of Admission: 02/28/2022 Length of Stay Hospital Day 9 days Please see the below note by Dr. Tomlinson for details. I have interviewed and examined the patient independently and I concur with the assessment and plan as documented, with exceptions/additions/emphases as noted below. The case was discussed on cardiology rounds and we reviewed the plan of care with the team and patient. 72yoM admitted with afib and acute decompensated heart failure (systolic, LVEF 45%) with concern for tachymyopathy. Initial strategy was treatment with amiodarone and torsemide however he developed profound thrombocytopenia with concern for drug-induced and both were discontinued. Subsequently he was exceedingly difficult to rate control. He was loaded with digoxin two days ago and has had a spectacular response to this. We will be able to back off on his metoprolol today. No longer requiring active diuresis and creatinine is actually up a bit over the past 48 hours. Will continue to monitor.Continue IVIG per Heme; okay to give LMWH (recent cardioversion with early reversion) as long as PLTs >10. PLTs low but stable today (19 => 20); hopefully this is the santiago. Linden complains of being tired but no localizing concerns today. Attending Attestation Please see Dr. Tomlinson's note for details of the patient history of presentation and data. I have discussed, reviewed and agree with the documented History, Physical findings, Assessment and Plan of care. I have examined the patient myself and personally reviewed all studies. In addition, I certify thatI am a D-H credentialed attending provider with admitting privileges and that the patient meets or has met medical necessity to require an inpatient IPI level of care meeting a minimum of two midnights or is on the [facility] inpatient only procedure list (status C) due to: decompensated congestive heart failure requiring IV medication and fluid monitoring, life threatening arrhythmia requiring IV antiarrhythmic medicaiton or monitored medication titration, monitoring of fluid status given an inability to regulate fluid balance and the need for administration or restriction of fluid, and severe thrombocytopenia requiring close monitoring and IV medical therapy. Virginia Chris MD Cardiovascular Medicine Personal Pager [phone] 03/09/2022 3:30 PM * Gary Amparo R - 03/08/2022 12:23 PM EDT Nutrition Services Note - Low Nutrition Acuity Kelly Shell is a 72 y.o. male Reason for intervention: hospital day 9 Nutrition Plan: Continue current diet. Encourage good PO intake. Monitor blood glucose levels. Diet education provided. History of Lasix noted. Support and encouragement provided. Pt was screened for hospital length of stay and was seen at bedside. Pt reported a good appetite, although he doesn't like the food. Pt did say he is finding foods that he likes to eat and is not going hungry between meals. Seo Analyst provided some diet education- Pt reported he would like to snack butknows he is on a restrictive diet (CHO counting diet). Seo Analyst encouraged Pt to work with diet office staff to make best choices for meal times. Nutrition services to monitor and follow-up. Active Orders Diet Carb Control diet 60/60/75 CHO counting level 2 Frequency: Effective Now Number of Occurrences: Until Specified Admit Weight: 113.4 kg Estimated body mass index is 35.18 kg/m?? as calculated from the following: Height as of this encounter: 170.2 cm (5' 7). Weight as of this encounter: 101.9 kg (224 lb 10.4 oz). Wt Readings from Last 5 Encounters: 03/08/22 101.9 kg (224 lb 10.4 oz) 01/10/22 115.2 kg (254 lb) 01/02/22 112.5 kg (248 lb) 12/27/21 112.9 kg (248 lb 12.8 oz) Weight loss: not clinically significant Appetite: Good (50%-75%) Food allergies:no known food allergies Chewing/Swallowing difficulty: none Nausea/Vomiting: no nausea and no vomiting Last Bowel Movement: 03/05/22 Patient education / questions: all nutrition related questions answered at this time Amparo Vega, DT [phone] * Kailee Lewis OT - 03/08/2022 10:24 AM EDT 03/08/22 1019 Evaluation & Treatment Document Type contact Total Minutes, Occupational Therapy 0 Comment, Session Not Performed New OT consult received and spoke with MD regarding concern for possible functional decline since initial OT evaluation. Spoke with pt's RN this morning who confirms that pt is ambulating, getting OOB to a chair and participating in his ADLs. Pt observed to be up in achair and fully dressed this morning. We will continue to monitor pt's status while hospitalized and intervene if appropriate. Pt is anticipated to d/c home once medically ready. KAILEE LEWIS OTR/L Pager: [phone] Occupational Therapy Rehabilitation Department * Adeola Johnson MD - 03/08/2022 8:43 AM EDT Spoke with hematology fellow who approved therapeutic anti-coagulation for atrial fibrillation withLovenox 60 mg until platelets are <10, then hold. * Terri Tomlinson MD - 03/08/2022 6:19 AM EDT Inpatient Cardiology Progress Note Patient Name: Kelly Shell Date of Admission: 02/28/2022 ( Hospital Day 8 days ) Service: S1 ID: Kelly Shell is a 72 y.o. male with hx of T2DM HLD, GERD, BPH, Aflutter s/p ablation and DCCV on 01/02/22 recently switched for eliquis to xarelto, JEEVAN not on CPAP who presents for SOB. Active Problems: Active Hospital Problems Diagnosis ??? Atrial fibrillation ??? Drug-induced ITP ??? JEEVAN on CPAP ??? Acute systolic heart failure ??? Macrocytic anemia ??? Status post ablation of atrial flutter 01/02/2022 ??? Type 2 diabetes mellitus Resolved Hospital Problems Diagnosis Date Resolved ??? Acute hypoxemic respiratory failure 03/02/2022 24 hr events: Overnight - No acute events overnight - IVIG given - Dexamethasone started ROS: Denies CP, SOB, palpitations, PND, Orthopnea, dizziness/LH, LE swelling or pain, n/v, abd pain. Physical Exam: Last value Range last 24 hrs Temperature Temp: 36.9 ??C (98.4 ??F) Temp: [36.4 ??C (97.5 ??F)-36.9 ??C (98.4 ??F)] Heart Rate Heart Rate: 62 Heart Rate: [62-117] Blood Pressure BP: 105/73 BP: (91-125)/(60-86) Respiratory Rate Resp: 18 Resp: [15-18] SpO2 SpO2: 96 % SpO2: [95 %-98 %] Weight: Patient Vitals for the past 168 hrs: Weight 03/08/22 0508 101.9 kg (224 lb 10.4 oz) 03/07/22 0528 100.8 kg (222 lb 3.6 oz) 03/06/22 0410 101.3 kg (223 lb 5.2 oz) 03/05/22 0436 102.5 kg (226 lb) 03/04/22 0526 104.9 kg (231 lb 4.2 oz) 03/03/22 0341 110 kg (242 lb 8.1 oz) 03/02/22 0540 111.1 kg (245 lb) Admit Weight: 113.4 kg Yesterday's net I/O's: Intake/Output Summary (Last 24 hours) at 03/08/2022 0619 Last data filed at 03/07/2022 2228 Gross per 24 hour Intake 1070 ml Output 475 ml Net 595 ml Net I/O's since admission: Patient Vitals for the past 168 hrs: Weight 03/08/22 0508 101.9 kg (224 lb 10.4 oz) 03/07/22 0528 100.8 kg (222 lb 3.6 oz) 03/06/22 0410 101.3 kg (223 lb 5.2 oz) 03/05/22 0436 102.5 kg (226 lb) 03/04/22 0526 104.9 kg (231 lb 4.2 oz) 03/03/22 0341 110 kg (242 lb 8.1 oz) 03/02/22 0540 111.1 kg (245 lb) Gen: pleasant male in NAD CV: RRR, no m/r/g, JVP 8 Resp: CTAB comfortably on RA Abd: nondistended, soft, NT, nabs throughout Ext: trace pitting edema on right leg Neuro: alert and responsive. Labs Recent Labs 03/08/22 03403/07/22 0515 03/06/22 0320 WBC 3.0* 6.2 8.2 HGB 14.4 14.8 15.8 HCT 44.3 44.1 48.1 PLATELET 19* 27* 37* Recent Labs 03/08/22 03403/07/22 0515 03/06/22 0320 NA 132* 134* 138 K 4.7 3.5 4.0 CL 96* 97* 98 CO2 24 25 26 BUN 27* 24* 25* CREATININE 1.00 0.77* 0.87 Recent Labs 03/05/22 0923 AST 24 ALT 25 ALKPHOS 89 BILITOT 1.7* BILIDIR 0.4* Recent Labs 03/08/22 0341 03/07/22 0515 03/06/22 0320 CALCIUM 8.9 8.9 9.4 MAGNESIUM 0.79 0.71 0.74 Recent Labs 03/03/22 1236 INR 2.0 PT 22.5* PTT 46* No results for input(s): CK, TROPONINT in the last 168 hours. Scheduled Medications: ??? ondansetron 8 mg Oral Q8H ROB ??? digoxin 125 mcg Intravenous Q6H ??? dexAMETHasone 16 mg Oral Daily ??? enoxaparin 60 mg Subcutaneous Nightly ??? metoprolol succinate XL 150 mg Oral Daily ??? metFORMIN 1,000 mg Oral BID WC ??? polyethylene glycoL (MIRALAX) oral powder 17 g Oral Daily ??? sodium chloride 0.9 % (flush) 5 mL Intravenous BID ??? insulin lispro 1-4 Units Subcutaneous Q4H ROB ??? insulin lispro 0-8 Units Subcutaneous TID WC PRN Medications: potassium chloride ER OR [DISCONTINUED] potassium chloride ER, sodium chloride 0.9 % (flush), lidocaine, glucose 40% oral geL OR dextrose 10% OR glucagon Assessment: Kelly Shell is a 72 y.o. male with hx of T2DM HLD, GERD, BPH, Aflutter s/p ablation and DCCV on 01/02/22 recently switched for eliquis to xarelto, JEEVAN not on CPAP who presents for SOB. ?? Patient had ablation for aflutter in December but subsequently developed afib there after. He had sotalol load planned for January but it was canceled because he missed a dose of his eliquis. Failed rhythm control with Amiodarone this morning. Will stop amio in light of worsening thrombocytopenia due to c/f drug induced ITP and continue rate control with metop tartrate alone. EP is aware and will plan to discuss afib ablation with him today. Currently on metoprolol for rate control seems to tolerate it. Patient is still tachycardic will start digoxin for additional rate control. Will hold Bumex since patient appears euvolemic. Consider .5 tomorrow depending on output today Will continue to monitor BP Communication with Heme: Will DC therapeutic lovonox and begin prophylactic dose until platelets <25-30 Likely will start IVIG if platelets <30 May restart doac if platelets >40 ideally >50 Received IVIG ovn: Since patient has been tachycardic: will begin Digoxin Will continue communication with heme regarding anticoagulation Plan 02/06 Started digoxin Dig level in 48 hrs Held lovonox Continue metop XL 150 Will communicate with Heme to clarify Lovonox #Atrial Fibrillation w RVR s/p SYDNEY cardioversion #hx Aflutter s/p Ablation #new HFrEF #ADHF - Hold xarelto 20 mg qPM - TTE cardioversion completed - Metoprolol Succinate 150 mg - stop Amiodarone load - Bumex - Digoxin b/c BP soft - Will check dig level in 48hr ?? #HLD - home pravastatin 20 mg qD #JEEVAN - Off CPAP #T2DM - SSI - Will consider insuline regimen ?? 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 vs splenic sequestration - Heme consulted and following - hapto 164 - fibrinogen 553, - LDH 239 - Coags wnls - IPF inappropriately low - Hold Rivaroxiban - IVIG Given - Dexamethasone 16 mg qd - Lovonox held for now #Housekeeping: - DVT PPx: none - Diet: CC2 Code Status: Attempt Cardiopulmonary Resuscitation - Inpatient Terri Fiordaliza Tomlinson MD Internal Medicine PGY-1 Pager [phone], M1-S1 Service Associated attestation - Martir Rios MD - 03/08/2022 10:50 PM EDT Cardiology Attending Addendum Active Hospital Problems Diagnosis Atrial fibrillation Drug-induced ITP Acute systolic heart failure JEEVAN on CPAP Macrocytic anemia Status post ablation of atrial flutter 01/02/2022 Type 2 diabetes mellitus Resolved Hospital Problems Diagnosis Date Resolved Acute hypoxemic respiratory failure 03/02/2022 I have interviewed and examined the patient, reviewed the available data, and have discussed my findings, assessment and plan with the patient and the team on rounds today. I agree with Dr. Tomlinson's note as below which reflects our discussion. * Josh Bertrand MD - 03/07/2022 1:15 PM EDT Hematology Follow Up Note 72M with PMH atrial flutter s/p ablation and DCCV in 12/2021 on Xarelto, history of DM, GERD, JEEVAN onCPAP who presented for decompensated heart failure 2/2 atrial flutter now s/p cardioversion on 03/02/22 but reverted back to Afib. Hematology was consulted for worsening thrombocytopenia. ?? The platelet trajectory course has been reviewed. Platelets continue to downtrend to 27 this morning on 03/07/22. IVIG 1000mg/kg was started yesterday evening 03/06/22. The etiology of the thrombocytopenia is suspected to be drug induced ITP. The agent in question is thought to be either amiodarone or torsemide. Torsemide has been switched to bumex. Amiodarone has also been discontinued, although the half life of amiodarone may last several weeks. The course of DITP may result in severe thrombocytopenia with platelet count <20K and/or bleeding. Cessation of the drug is highly recommended and IVIG and steroids may be given in severe cases with bleeding. Patient was started on IVIG yesterday due to downward trend in count with the need to be on AC due to recent procedure. On average, one can expect to see a platelet response 2-3 days after completion of treatment, although it may be earlier given patient had received a high dose of IVIG. We will continue giving IVIG a second dose today. We will also plan to start dexamethasone as well. Regarding anticoagulation, the patient has an elevated risk of bleeding on therapeutic lovenox and we would recommend holding. Patient may be given intermediate dose lovenox at 60mg daily due to riskof VTE given DCCV. Once there is an improvement in platelet count and no if no bleeding, therapeutic lovenox or DOAC may be considered once platelets are recovering above 40K, ideally >50K. If platelet count remains refractory after IVIG and 4 days of steroids, we may consider TPO agonist such as eltrombopag. This has been communicated to the primary team. Recommendations -IVIG 1g/kg given 03/06. Will give additional dose today -Begin dexamethasone for 4 days -May continue intermediate lovenox due to increased risk of VTE after recent DCCV -Continue to monitor daily CBCs for santiago and check for any bleeding. -If platelet count remains refractory after IVIG and 4 days of steroids, may consider TPO agonist such as eltrombopag. ? Patient discussed with Hematology attending Dr. Bertrand. Jake Gonzales MD Hematology/Oncology Fellow [facility] +++++++++++++++++++++++++++++++++++++++++++++++++++++++++++++++++++++++++++ Heme Attending Addendum: I agree with the recommendations above and have the following additions: Dexamethasone 10 mg today and 16 mg starting tomorrow Josh Bertrand MD PhD, Hematology Section, [facility] Pager - [phone] * Terri Tomlinson MD - 03/07/2022 6:14 AM EDT Inpatient Cardiology Progress Note Patient Name: Kelly Shell Date of Admission: 02/28/2022 ( Hospital Day 7 days ) Service: S1 ID: Kelly Shell is a 72 y.o. male with hx of T2DM HLD, GERD, BPH, Aflutter s/p ablation and DCCV on 01/02/22 recently switched for eliquis to xarelto, JEEVAN not on CPAP who presents for SOB. Active Problems: Active Hospital Problems Diagnosis ??? Atrial fibrillation ??? Thrombocytopenia ??? JEEVAN on CPAP ??? Acute systolic heart failure ??? Macrocytic anemia ??? Status post ablation of atrial flutter 01/02/2022 ??? Type 2 diabetes mellitus Resolved Hospital Problems Diagnosis Date Resolved ??? Acute hypoxemic respiratory failure 03/02/2022 24 hr events: Overnight - No acute events overnight - IVIG given ROS: Denies CP, SOB, palpitations, PND, Orthopnea, dizziness/LH, LE swelling or pain, n/v, abd pain. Physical Exam: Last value Range last 24 hrs Temperature Temp: 36.8 ??C (98.2 ??F) Temp: [36.6 ??C (97.9 ??F)-36.8 ??C (98.2 ??F)] Heart Rate Heart Rate: (!) 102 Heart Rate: [83-122] Blood Pressure BP: 90/60 BP: (90-128)/(60-101) Respiratory Rate Resp: 18 Resp: [17-22] SpO2 SpO2: 98 % SpO2: [90 %-99 %] Weight: Patient Vitals for the past 168 hrs: Weight 03/07/22 0528 100.8 kg (222 lb 3.6 oz) 03/06/22 0410 101.3 kg (223 lb 5.2 oz) 03/05/22 0436 102.5 kg (226 lb) 03/04/22 0526 104.9 kg (231 lb 4.2 oz) 03/03/22 0341 110 kg (242 lb 8.1 oz) 03/02/22 0540 111.1 kg (245 lb) 03/01/22 0600 111.6 kg (246 lb 0.5 oz) 02/28/221999 117 kg (257 lb 15 oz) 02/28/22 102 113.4 kg (250 lb) Admit Weight: 113.4 kg Yesterday's net I/O's: Intake/Output Summary (Last 24 hours) at 03/07/2022 0832 Last data filed at 03/07/2022 0757 Gross per 24 hour Intake 560 ml Output 1800 ml Net -1240 ml Net I/O's since admission: Patient Vitals for the past 168 hrs: Weight 03/07/22 0528 100.8 kg (222 lb 3.6 oz) 03/06/22 0410 101.3 kg (223 lb 5.2 oz) 03/05/22 0436 102.5 kg (226 lb) 03/04/22 0526 104.9 kg (231 lb 4.2 oz) 03/03/22 0341 110 kg (242 lb 8.1 oz) 03/02/22 0540 111.1 kg (245 lb) 03/01/22 06 111.6 kg (246 lb 0.5 oz) 02/28/221999 117 kg (257 lb 15 oz) 02/28/22 102 113.4 kg (250 lb) Gen: pleasant male in NAD CV: RRR, no m/r/g, JVP 8 Resp: CTAB comfortably on RA Abd: nondistended, soft, NT, nabs throughout Ext: No pitting edema Neuro: alert and responsive. Labs Recent Labs 03/07/22 0515 03/06/22 0320 03/05/22 0423 WBC 6.2 8.2 8.9 HGB 14.8 15.8 15.0 HCT 44.1 48.1 44.5 PLATELET 27* 37* 49* Recent Labs 03/07/22 0515 03/06/22 0320 03/05/22 1609 03/05/22 0923 03/05/22 0423 NA 134* 138 -- -- 136 K 3.5 4.0 3.9 < > 3.6 CL 97* 98 -- -- 95* CO2 25 26 -- -- 26 BUN 24* 25* -- -- 24* CREATININE 0.77* 0.87 -- -- 0.90 < > = values in this interval not displayed. Recent Labs 03/05/22 0923 02/28/22 1112 AST 24 24 ALT 25 20 ALKPHOS 89 78 BILITOT 1.7* 1.7* BILIDIR 0.4* 0.4* Recent Labs 03/07/22 0515 03/06/22 0320 03/05/22 0423 02/28/22 2130 02/28/22 1112 CALCIUM 8.9 9.4 9.5 < > 9.2 MAGNESIUM 0.71 0.74 0.76 < > 0.77 PHOS -- -- -- -- 3.7 < > = values in this interval not displayed. Recent Labs 03/03/22 1236 INR 2.0 PT 22.5* PTT 46* No results for input(s): CK, TROPONINT in the last 168 hours. Scheduled Medications: ??? ondansetron 8 mg Oral Q8H ROB ??? metoprolol succinate XL 150 mg Oral Daily ??? enoxaparin 40 mg Subcutaneous Daily ??? metFORMIN 1,000 mg Oral BID WC ??? polyethylene glycoL (MIRALAX) oral powder 17 g Oral Daily ??? sodium chloride 0.9 % (flush) 5 mL Intravenous BID ??? insulin lispro 1-4 Units Subcutaneous Q4H ROB ??? insulin lispro 0-8 Units Subcutaneous TID WC PRN Medications: potassium chloride ER OR potassium chloride ER, sodium chloride 0.9 % (flush), lidocaine, glucose 40% oral geL OR dextrose 10% OR glucagon Assessment: Kelly Shell is a 72 y.o. male with hx of T2DM HLD, GERD, BPH, Aflutter s/p ablation and DCCV on 01/02/22 recently switched for eliquis to xarelto, JEEVAN not on CPAP who presents for SOB. ?? Patient had ablation for aflutter in December but subsequently developed afib there after. He had sotalol load planned for January but it was canceled because he missed a dose of his eliquis. Failed rhythm control with Amiodarone this morning. Will stop amio in light of worsening thrombocytopenia due to c/f drug induced ITP and continue rate control with metop tartrate alone. EP is aware and will plan to discuss afib ablation with him today. Currently on metoprolol for rate control seems to tolerate it. Patient is still tachycardic will start digoxin for additional rate control. Will hold Bumex since patient appears euvolemic. Consider .5 tomorrow depending on output today Will continue to monitor BP Communication with Heme: Will DC therapeutic lovonox and begin prophylactic dose until platelets <25-30 Likely will start IVIG if platelets <30 May restart doac if platelets >40 ideally >50 Received IVIG ovn: Since patient has been tachycardic: will begin Digoxin Will continue communication with heme regarding anticoagulation Plan 02/06 Started digoxin Dig level in 48 hrs Held lovonox Continue metop XL 150 #Atrial Fibrillation w RVR s/p SYDNEY cardioversion #hx Aflutter s/p Ablation #new HFrEF #ADHF - Hold xarelto 20 mg qPM - TTE cardioversion completed - Metoprolol Succinate 150 mg - stop Amiodarone load - Bumex will hold - Will begin Digoxin today - Will check dig level in 48hr ?? #HLD - home pravastatin 20 mg qD ?? #Pulmonary Edema- resolved - Patient had good response to lasix - Will order ProBNP for Volume status - Bumex will DC ?? #JEEVAN - Off CPAP #T2DM - SSI ?? 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 vs splenic sequestration - Heme consulted and following - hapto 164 - fibrinogen 553, - LDH 239 - Coags wnls - IPF inappropriately low - Hold Rivaroxiban - IVIG Given #Housekeeping: - DVT PPx: none - Diet: CC2 Code Status: Attempt Cardiopulmonary Resuscitation - Inpatient [facility] Fiordaliza Tomlinson MD Internal Medicine PGY-1 Pager [phone], M1-S1 Service Associated attestation - Martir Rios MD - 03/07/2022 11:16 PM EDT Cardiology Attending Addendum Active Hospital Problems Diagnosis Atrial fibrillation Drug-induced ITP Acute systolic heart failure JEEVAN on CPAP Macrocytic anemia Status post ablation of atrial flutter 01/02/2022 Type 2 diabetes mellitus Resolved Hospital Problems Diagnosis Date Resolved Acute hypoxemic respiratory failure 03/02/2022 I have interviewed and examined the patient, reviewed the available data, and have discussed my findings, assessment and plan with the patient and the team on rounds today. I agree with Dr. Tomlinson's note as below which reflects our discussion. * Itzel Salazar RN - 03/07/2022 4:50 AM EDT OUTCOME EVALUATION NOTE: ?? OUTCOME SUMMARY: ?? A+Ox4. VSS. Denies CP/SOB/weakness/dizziness/pain.??Patient remained in afib overnight.?Patient using urinal overnight.??Potassium 3.5 and Sodium 134 this am. Team paged as protocol only goes as low as 3.6. Platelets @ 27. IVIG infusion completed overnight. ?? PLAN MOVING FORWARD: ? Appropriate discharge planning ?? INDIVIDUALIZED FALL PREVENTION INTERVENTIONS: ?? Patient-specific fall risk factors per assessment: [current deficits]:?tele wires, walker, unfamiliar environment, neuropathy, dyspnea on exertion? Assistance [level of assistance required for transfers and ambulation]:?SBA w/ walker ?? Supervision [direct monitoring required during toileting and ADLs]:?eyes on ?? Surveillance [continuous indirect monitoring]:?telemetry, purposeful hourly rounding ?? Patient-specific fall prevention interventions for sensory deficits provided, if applicable:?call montero in reach, non-skid socks when OOB, lighting adjusted for specific tasks, bed alarm on ? CPG GOAL OUTCOME EVALUATION:?ongoing?? * Terri Tomlinson MD - 03/06/2022 6:03 AM EDT Inpatient Cardiology Progress Note Patient Name: Kelly Shell Date of Admission: 02/28/2022 ( Hospital Day 6 days ) Service: S1 ID: Kelly Shell is a 72 y.o. male with hx of T2DM HLD, GERD, BPH, Aflutter s/p ablation and DCCV on 01/02/22 recently switched for eliquis to xarelto, JEEVAN not on CPAP who presents for SOB. Active Problems: Active Hospital Problems Diagnosis ??? Atrial fibrillation ??? Thrombocytopenia ??? JEEVAN on CPAP ??? Acute systolic heart failure ??? Macrocytic anemia ??? Status post ablation of atrial flutter 01/02/2022 ??? Type 2 diabetes mellitus Resolved Hospital Problems Diagnosis Date Resolved ??? Acute hypoxemic respiratory failure 03/02/2022 24 hr events: Overnight - No acute events overnight ROS: Denies CP, SOB, palpitations, PND, Orthopnea, dizziness/LH, LE swelling or pain, n/v, abd pain. Physical Exam: Last value Range last 24 hrs Temperature Temp: 36.7 ??C (98.1 ??F) Temp: [36.6 ??C (97.9 ??F)-36.8 ??C (98.2 ??F)] Heart Rate Heart Rate: (!) 108 Heart Rate: [89-115] Blood Pressure BP: (!) 103/92 BP: (93-134)/(53-92) Respiratory Rate Resp: 20 Resp: [15-28] SpO2 SpO2: 98 % SpO2: [96 %-100 %] Weight: Patient Vitals for the past 168 hrs: Weight 03/06/22 0410 101.3 kg (223 lb 5.2 oz) 03/05/22 0436 102.5 kg (226 lb) 03/04/22 0526 104.9 kg (231 lb 4.2 oz) 03/03/22 0341 110 kg (242 lb 8.1 oz) 03/02/22 0540 111.1 kg (245 lb) 03/01/22 0600 111.6 kg (246 lb 0.5 oz) 02/28/22 2000 117 kg (257 lb 15 oz) 02/28/22 1025 113.4 kg (250 lb) Admit Weight: 113.4 kg Yesterday's net I/O's: Intake/Output Summary (Last 24 hours) at 03/06/2022 0603 Last data filed at 03/06/2022 0000 Gross per 24 hour Intake 460 ml Output 1400 ml Net -940 ml Net I/O's since admission: Patient Vitals for the past 168 hrs: Weight 03/06/22 0410 101.3 kg (223 lb 5.2 oz) 03/05/22 0436 102.5 kg (226 lb) 03/04/22 0526 104.9 kg (231 lb 4.2 oz) 03/03/22 0341 110 kg (242 lb 8.1 oz) 03/02/22 0540 111.1 kg (245 lb) 03/01/22 0600 111.6 kg (246 lb 0.5 oz) 02/28/221999 117 kg (257 lb 15 oz) 02/28/22 1025 113.4 kg (250 lb) Gen: pleasant male in NAD CV: RRR, no m/r/g, JVP 11 Resp: CTAB comfortably on RA Abd: nondistended, soft, NT, nabs throughout Ext: No pitting edema Neuro: alert and responsive. Labs Recent Labs 03/06/2231903/05/22 04203/04/22 0407 WBC 8.2 8.9 8.9 HGB 15.8 15.0 13.2* HCT 48.1 44.5 40.2* PLATELET 37* 49* 56* Recent Labs 03/06/2231903/05/22 1609 03/05/22 0923 03/05/22 0423 03/04/22 0407 NA 138 -- -- 136 138 K 4.0 3.9 3.8 3.6 3.7 CL 98 -- -- 95* 97* CO2 26 -- -- 26 26 BUN 25* -- -- 24* 24* CREATININE 0.87 -- -- 0.90 0.90 Recent Labs 03/05/22 0923 02/28/22 1112 AST 24 24 ALT 25 20 ALKPHOS 89 78 BILITOT 1.7* 1.7* BILIDIR 0.4* 0.4* Recent Labs 03/06/22 03203/05/22 0423 03/04/22 0407 02/28/22 2130 02/28/22 1112 CALCIUM 9.4 9.5 9.3 < > 9.2 MAGNESIUM 0.74 0.76 0.73 < > 0.77 PHOS -- -- -- -- 3.7 < > = values in this interval not displayed. Recent Labs 03/03/22 1236 INR 2.0 PT 22.5* PTT 46* No results for input(s): CK, TROPONINT in the last 168 hours. Scheduled Medications: ??? metoprolol succinate XL 100 mg Oral Daily ??? bumetanide 2 mg Oral Daily ??? enoxaparin 100 mg Subcutaneous BID ??? metFORMIN 1,000 mg Oral BID WC ??? polyethylene glycoL (MIRALAX) oral powder 17 g Oral Daily ??? sodium chloride 0.9 % (flush) 5 mL Intravenous BID ??? insulin lispro 1-4 Units Subcutaneous Q4H ROB ??? insulin lispro 0-8 Units Subcutaneous TID WC PRN Medications: potassium chloride ER OR potassium chloride ER, sodium chloride 0.9 % (flush), lidocaine, glucose 40% oral geL OR dextrose 10% OR glucagon Assessment: Kelly Shell is a 72 y.o. male with hx of T2DM HLD, GERD, BPH, Aflutter s/p ablation and DCCV on 01/02/22 recently switched for eliquis to xarelto, JEEVAN not on CPAP who presents for SOB. ?? Patient had ablation for aflutter in December but subsequently developed afib there after. He had sotalol load planned for January but it was canceled because he missed a dose of his eliquis. Failed rhythm control with Amiodarone this morning. Will stop amio in light of worsening thrombocytopenia due to c/f drug induced ITP and continue rate control with metop tartrate alone. EP is aware and will plan to discuss afib ablation with him today. Currently on metoprolol for rate control seems to tolerate it. Will increase to 100 metop daily. Will be decreasing bumex due to such responsive output of 4.1L UOP. Patient also responsive on 2mg Bumex daily. Appears euvolemic today. Will continue to decrease Bumex to 1 mg daily and see responseas possible maintnence dose Will hold lovonox for now due to continue worsening Thrombocytopenia (37) Will continue to monitor BP Will trial digoxin if rate control is challenging. Communication with Heme: Will DC therapeutic lovonox and begin prophylactic dose until platelets <25-30 Likely will start IVIG if platelets <30 May restart doac if platelets >40 ideally >50 #Atrial Fibrillation w RVR s/p SYDNEY cardioversion #hx Aflutter s/p Ablation #new HFrEF #ADHF - Hold xarelto 20 mg qPM - TTE cardioversion completed - Metoprolol Succinate 100 mg will add additional 25 mg for rate control - stop Amiodarone load - Bumex will drop to 1mg daily ?? #HLD - home pravastatin 20 mg qD ?? #Pulmonary Edema- resolved - Patient had good response to lasix - Will order ProBNP for Volume status - Bumex 1 mg qd will lower dose to see responsiveness for maintenance dose ?? #JEEVAN - Off CPAP #T2DM - SSI ?? 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 vs splenic sequestration - Heme consulted and following - hapto 164 - fibrinogen 553, - LDH 239 - Coags wnls - PBS pending, - IPF inappropriately low - Hold Rivaroxiban today - RUQ u/s for r/o splenic sequestration - Possible consider steroid #Housekeeping: - DVT PPx: Xarelto - Diet: CC2 Code Status: Attempt Cardiopulmonary Resuscitation - Inpatient [facility] Fiordaliza Tomlinson MD Internal Medicine PGY-1 Pager [phone], M1-S1 Service Associated attestation - Martir Rios MD - 03/06/2022 10:06 PM EDT Cardiology Attending Addendum Active Hospital Problems Diagnosis Atrial fibrillation Thrombocytopenia Acute systolic heart failure JEEVAN on CPAP Macrocytic anemia Status post ablation of atrial flutter 01/02/2022 Type 2 diabetes mellitus Resolved Hospital Problems Diagnosis Date Resolved Acute hypoxemic respiratory failure 03/02/2022 I have interviewed and examined the patient, reviewed the available data, and have discussed my findings, assessment and plan with the patient and the team on rounds today. I agree with Dr. Tomlinson's note as below which reflects our discussion. * Itzel Salazar RN - 03/06/2022 5:48 AM EDT OUTCOME EVALUATION NOTE: ?? OUTCOME SUMMARY: ?? A+Ox4. VSS. Denies CP/SOB/weakness/dizziness/pain.??Patient remained in afib overnight. Patient using urinal overnight.??Potassium 4.0 this am. Platelets @ 37. ?? PLAN MOVING FORWARD: ?? Appropriate discharge planning ?? INDIVIDUALIZED FALL PREVENTION INTERVENTIONS: ?? Patient-specific fall risk factors per assessment: [current deficits]:?tele wires, walker, unfamiliar environment, neuropathy, dyspnea on exertion? Assistance [level of assistance required for transfers and ambulation]:?SBA w/ walker ?? Supervision [direct monitoring required during toileting and ADLs]:?eyes on ?? Surveillance [continuous indirect monitoring]:?telemetry, purposeful hourly rounding ?? Patient-specific fall prevention interventions for sensory deficits provided, if applicable:?call montero in reach, non-skid socks when OOB, lighting adjusted for specific tasks, bed alarm on ? C[facility] GOAL OUTCOME EVALUATION:?ongoing?? * Ana Luisa Gardner RN - 03/05/2022 6:18 PM EDT EP met with patient today at the request of Dr Rios, per there recommendations, recommend rate control with medications BB, Digoxin, CCB as needed. Next potassium recheck is at 2200. VSS, will continue to monitor * Josh Bertrand MD - 03/05/2022 5:18 PM EDT Brief Hematology Note: 72M with PMH atrial flutter s/p ablation and DCCV in 12/2021 on Xarelto, history of DM, GERD, JEEVAN onCPAP who presented for decompensated heart failure and atrial flutter now s/p cardioversion on 02/28/22. Hematology was consulted for worsening thrombocytopenia. Unfortunately, platelets continue to drop in setting of treatment for heart failure and atrial flutter thought to be drug induced ITP. Platelets decreased to 49 today. The suspected offending agent torsemide and amiodarone had been stopped. IPF was normal. -Recommend checking US of the abdomen to rule out splenic sequestration. -Recommend eliquis instead of xarelto while patient is in house. If platelets drop <40K, may switch to prophylactic lovenox -Recommend continue to monitor daily CBCs for santiago at this time Patient discussed with Hematology attending Dr. Bertrand. Jake Gonzales MD Hematology/Oncology Fellow Pager # [phone] 03/05/22, 5:19 PM Heme Attending Addendum: I agree with the recommendations of the fellow. I have seen and examined the patient, and reviewed all pertinent laboratory and radiographic findings. I agree with the recommendations above which were formulated with me Josh Bertrand MD PhD, Hematology Section, [facility] Pager - [phone] * Terri Tomlinson MD - 03/05/2022 6:28 AM EDT Inpatient Cardiology Progress Note Patient Name: Kelly Shell Date of Admission: 02/28/2022 ( Hospital Day 5 days ) Service: S1 ID: Kelly Shell is a 72 y.o. male with hx of T2DM HLD, GERD, BPH, Aflutter s/p ablation and DCCV on 01/02/22 recently switched for eliquis to xarelto, JEEVAN not on CPAP who presents for SOB. Active Problems: Active Hospital Problems Diagnosis ??? Atrial fibrillation ??? Thrombocytopenia ??? JEEVAN on CPAP ??? Acute systolic heart failure ??? Macrocytic anemia ??? Status post ablation of atrial flutter 01/02/2022 ??? Type 2 diabetes mellitus Resolved Hospital Problems Diagnosis Date Resolved ??? Acute hypoxemic respiratory failure 03/02/2022 24 hr events: Overnight - No acute events overnight ROS: Denies CP, SOB, palpitations, PND, Orthopnea, dizziness/LH, LE swelling or pain, n/v, abd pain. Physical Exam: Last value Range last 24 hrs Temperature Temp: 36.8 ??C (98.2 ??F) Temp: [36.6 ??C (97.9 ??F)-36.8 ??C (98.2 ??F)] Heart Rate Heart Rate: (!) 106 Heart Rate: [77-106] Blood Pressure BP: 105/71 BP: (105-116)/(66-80) Respiratory Rate Resp: 18 Resp: [18-28] SpO2 SpO2: 100 % SpO2: [93 %-100 %] Weight: Patient Vitals for the past 168 hrs: Weight 03/05/22 0436 102.5 kg (226 lb) 03/04/22 0526 104.9 kg (231 lb 4.2 oz) 03/03/22 0341 110 kg (242 lb 8.1 oz) 03/02/22 0540 111.1 kg (245 lb) 03/01/22 0600 111.6 kg (246 lb 0.5 oz) 02/28/22 2000 117 kg (257 lb 15 oz) 02/28/22 1025 113.4 kg (250 lb) Admit Weight: 113.4 kg Yesterday's net I/O's: Intake/Output Summary (Last 24 hours) at 03/05/2022627 Last data filed at 03/05/2022 0400 Gross per 24 hour Intake 460 ml Output 4100 ml Net -3640 ml Net I/O's since admission: Patient Vitals for the past 168 hrs: Weight 03/05/22 0436 102.5 kg (226 lb) 03/04/22 0526 104.9 kg (231 lb 4.2 oz) 03/03/22 0341 110 kg (242 lb 8.1 oz) 03/02/22 0540 111.1 kg (245 lb) 03/01/22 0600 111.6 kg (246 lb 0.5 oz) 02/28/221999 117 kg (257 lb 15 oz) 02/28/22 1025 113.4 kg (250 lb) Gen: pleasant male in NAD CV: RRR, no m/r/g, JVP 11 Resp: CTAB comfortably on RA Abd: nondistended, soft, NT, nabs throughout Ext: 1+ pitting pedal edema bilaterally Neuro: alert and responsive. Labs Recent Labs 03/05/22 0423 03/04/22 0407 03/03/22 1624 03/03/22 1236 WBC 8.9 8.9 -- 8.9 HGB 15.0 13.2* -- 13.7 HCT 44.5 40.2* -- 42.3 PLATELET 49* 56* 66* 69* Recent Labs 03/05/22 0423 03/04/22 0407 03/03/22 1624 03/03/22 1100 03/03/22 0406 NA 136 138 -- 135 137 K 3.6 3.7 4.3 4.3 4.3 3.7 CL 95* 97* -- 101 100 CO2 26 26 -- 26 25 BUN 24* 24* -- -- 22* CREATININE 0.90 0.90 -- -- 0.80 Recent Labs 02/28/22 1112 AST 24 ALT 20 ALKPHOS 78 BILITOT 1.7* BILIDIR 0.4* Recent Labs 03/05/22 0423 03/04/22 0407 03/03/22 0406 02/28/22 2130 02/28/22 1112 CALCIUM 9.5 9.3 8.8 < > 9.2 MAGNESIUM 0.76 0.73 0.82 < > 0.77 PHOS -- -- -- -- 3.7 < > = values in this interval not displayed. Recent Labs 03/03/22 1236 INR 2.0 PT 22.5* PTT 46* No results for input(s): CK, TROPONINT in the last 168 hours. Scheduled Medications: ??? metoprolol succinate XL 75 mg Oral Daily ??? bumetanide 2 mg Oral BID ??? metFORMIN 1,000 mg Oral BID WC ??? polyethylene glycoL (MIRALAX) oral powder 17 g Oral Daily ??? sodium chloride 0.9 % (flush) 5 mL Intravenous BID ??? rivaroxaban 20 mg Oral QPM ??? insulin lispro 1-4 Units Subcutaneous Q4H ROB ??? insulin lispro 0-8 Units Subcutaneous TID WC PRN Medications: potassium chloride ER OR potassium chloride ER, sodium chloride 0.9 % (flush), lidocaine, glucose 40% oral geL OR dextrose 10% OR glucagon Assessment: Kelly Shell is a 72 y.o. male with hx of T2DM HLD, GERD, BPH, Aflutter s/p ablation and DCCV on 01/02/22 recently switched for eliquis to xarelto, JEEVAN not on CPAP who presents for SOB. ?? Patient had ablation for aflutter in December but subsequently developed afib there after. He had sotalol load planned for January but it was canceled because he missed a dose of his eliquis. Failed rhythm control with Amiodarone this morning. Will stop amio in light of worsening thrombocytopenia due to c/f drug induced ITP and continue rate control with metop tartrate alone. EP is aware and will plan to discuss afib ablation with him today. Currently on metoprolol for rate control seems to tolerate it. Will increase to 100 metop daily. Will be decreasing bumex due to such responsive output of 4.1L UOP. Will trial digoxin if rate control is challenging. #Atrial Fibrillation w RVR s/p SYDNEY cardioversion #hx Aflutter s/p Ablation #new HFrEF #ADHF - continue xarelto 20 mg qPM - TTE cardioversion completed - Begin Metoprolol Succinate 75 mg will add additional 25 mg for rate control - stop Amiodarone load - Bumex will drop to 2mg daily - Pro BNP labs ?? #HLD - home pravastatin 20 mg qD ?? #Pulmonary Edema- resolved - Patient had good response to lasix - Will order ProBNP for Volume status - Bumex 2 mg qd will considering lowering dose due to responsive UOP of 4.1L ?? #JEEVAN - Off CPAP #T2DM - SSI ?? 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 - Heme consulted and following - hapto 164 - fibrinogen 553, - LDH 239 - Coags wnls - PBS pending, - IPF inappropriately low - Hold Rivaroxiban for Platelets <20 #Housekeeping: - DVT PPx: Xarelto - Diet: CC2 Code Status: Attempt Cardiopulmonary Resuscitation - Inpatient Terri Tomlinson MD Internal Medicine PGY-1 Pager [phone], M1-S1 Service Associated attestation - Martir Rios MD - 03/05/2022 11:23 PM EDT Cardiology Attending Addendum Active Hospital Problems Diagnosis Atrial fibrillation Thrombocytopenia Acute systolic heart failure JEEVAN on CPAP Macrocytic anemia Status post ablation of atrial flutter 01/02/2022 Type 2 diabetes mellitus Resolved Hospital Problems Diagnosis Date Resolved Acute hypoxemic respiratory failure 03/02/2022 I have interviewed and examined the patient, reviewed the available data, and have discussed my findings, assessment and plan with the patient and the team on rounds today. I agree with Dr. Tomlinson's note as below. Appreciate input by Hematology and Electrophysiology teams. * Itzel Salazar RN - 03/05/2022 5:11 AM EDT OUTCOME EVALUATION NOTE: ?? OUTCOME SUMMARY: ?? A+Ox4. VSS. Denies CP/SOB/weakness/dizziness/pain. Patient remained in afib overnight. Patient using urinal overnight. Potassium 3.6 this am. See scanned documents. ?? PLAN MOVING FORWARD: ?? Diurese Appropriate discharge planning ?? INDIVIDUALIZED FALL PREVENTION INTERVENTIONS: ?? Patient-specific fall risk factors per assessment: [current deficits]:?tele wires, walker, unfamiliar environment, neuropathy, dyspnea on exertion? Assistance [level of assistance required for transfers and ambulation]:?SBA w/ walker ?? Supervision [direct monitoring required during toileting and ADLs]:?eyes on ?? Surveillance [continuous indirect monitoring]:?telemetry, purposeful hourly rounding ?? Patient-specific fall prevention interventions for sensory deficits provided, if applicable:?call montero in reach, non-skid socks when OOB, lighting adjusted for specific tasks, bed alarm on ? [facility] GOAL OUTCOME EVALUATION:?ongoing?? * Ana Luisa Gardner RN - 03/04/2022 6:03 PM EDT P.O. amiodarone stopped today, due to worsening thrombocytopenia, will continue to monitor rates overnight. * Adeola Johnson MD - 03/04/2022 7:51 AM EDT Inpatient Cardiology Progress Note Patient Name: Kelly Shell Date of Admission: 02/28/2022 ( Hospital Day 4 days ) Service: S1 ID: Kelly Shell is a 72 y.o. male with hx of T2DM HLD, GERD, BPH, Aflutter s/p ablation and DCCV on 01/02/22 recently switched for eliquis to xarelto, JEEVAN not on CPAP who presents for SOB. Active Problems: Active Hospital Problems Diagnosis ??? Atrial fibrillation ??? Acute systolic heart failure ??? Thrombocytopenia ??? JEEVAN on CPAP ??? Macrocytic anemia ??? Status post ablation of atrial flutter 01/02/2022 ??? Type 2 diabetes mellitus Resolved Hospital Problems Diagnosis Date Resolved ??? Acute hypoxemic respiratory failure 03/02/2022 24 hr events: Overnight - No acute events overnight - stopped torsemide, started Bumex for diuresis - hapto 164, fibrinogen 553, LDH 239, Coags wnls; PBS pending, IPF inappropriately low - back into Afib this AM with tachycardia to low 100s. ROS: Denies CP, SOB, palpitations, PND, Orthopnea, dizziness/LH, LE swelling or pain, n/v, abd pain. Physical Exam: Last value Range last 24 hrs Temperature Temp: 36.6 ??C (97.9 ??F) Temp: [36.5 ??C (97.7 ??F)-36.8 ??C (98.2 ??F)] Heart Rate Heart Rate: 80 Heart Rate: [70-95] Blood Pressure BP: 106/63 BP: (106-134)/(63-93) Respiratory Rate Resp: 13 Resp: [13-22] SpO2 SpO2: 96 % SpO2: [94 %-96 %] Weight: Patient Vitals for the past 168 hrs: Weight 03/04/22 0526 104.9 kg (231 lb 4.2 oz) 03/03/22 0341 110 kg (242 lb 8.1 oz) 03/02/22 0540 111.1 kg (245 lb) 03/01/22 0600 111.6 kg (246 lb 0.5 oz) 02/28/221999 117 kg (257 lb 15 oz) 02/28/22 1025 113.4 kg (250 lb) Admit Weight: 113.4 kg Yesterday's net I/O's: Intake/Output Summary (Last 24 hours) at 03/04/2022 0752 Last data filed at 03/04/2022 0400 Gross per 24 hour Intake 500 ml Output 2600 ml Net -2100 ml Net I/O's since admission: Patient Vitals for the past 168 hrs: Weight 03/04/22 0526 104.9 kg (231 lb 4.2 oz) 03/03/22 0341 110 kg (242 lb 8.1 oz) 03/02/22 0540 111.1 kg (245 lb) 03/01/22 0600 111.6 kg (246 lb 0.5 oz) 02/28/22 2000 117 kg (257 lb 15 oz) 02/28/22 1025 113.4 kg (250 lb) Gen: pleasant male in NAD CV: RRR, no m/r/g, JVP 13+ above sternal angle Resp: CTAB comfortably on RA Abd: nondistended, soft, NT, nabs throughout Ext: 1+ pitting pedal edema bilaterally Neuro: alert and responsive. Labs Recent Labs 03/04/22 0407 03/03/22 1624 03/03/22 1236 03/03/22 0406 WBC 8.9 -- 8.9 9.0 HGB 13.2* -- 13.7 13.0* HCT 40.2* -- 42.3 39.9* PLATELET 56* 66* 69* 68* Recent Labs 03/04/22 0407 03/03/22 1624 03/03/22 1100 03/03/22 0406 03/02/22 0829 03/02/22 0320 NA 138 -- 135 137 < > 138 K 3.7 4.3 4.3 4.3 3.7 < > 3.8 CL 97* -- 101 100 < > 100 CO2 26 -- 26 25 < > 28 BUN 24* -- -- 22* -- 22* CREATININE 0.90 -- -- 0.80 -- 0.87 < > = values in this interval not displayed. Recent Labs 02/28/22 1112 AST 24 ALT 20 ALKPHOS 78 BILITOT 1.7* BILIDIR 0.4* Recent Labs 03/04/22 0407 03/03/22 0406 03/02/22 0320 02/28/22 2130 02/28/22 1112 CALCIUM 9.3 8.8 8.5 < > 9.2 MAGNESIUM 0.73 0.82 0.94 < > 0.77 PHOS -- -- -- -- 3.7 < > = values in this interval not displayed. Recent Labs 03/03/22 1236 INR 2.0 PT 22.5* PTT 46* No results for input(s): CK, TROPONINT in the last 168 hours. Scheduled Medications: ??? bumetanide 2 mg Oral BID ??? metFORMIN 1,000 mg Oral BID WC ??? AMIOdarone 400 mg Oral BID Followed by ??? [START ON 03/09/2022] AMIOdarone 200 mg Oral BID Followed by ??? [START ON 03/16/2022] AMIOdarone 200 mg Oral Daily ??? metoprolol succinate XL 50 mg Oral Daily ??? polyethylene glycoL (MIRALAX) oral powder 17 g Oral Daily ??? sodium chloride 0.9 % (flush) 5 mL Intravenous BID ??? rivaroxaban 20 mg Oral QPM ??? insulin lispro 1-4 Units Subcutaneous Q4H ROB ??? insulin lispro 0-8 Units Subcutaneous TID WC PRN Medications: potassium chloride ER OR potassium chloride ER, sodium chloride 0.9 % (flush), lidocaine, glucose 40% oral geL OR dextrose 10% OR glucagon Assessment: Kelly Shell is a 72 y.o. male with hx of T2DM HLD, GERD, BPH, Aflutter s/p ablation and DCCV on 01/02/22 recently switched for eliquis to xarelto, JEEVAN not on CPAP who presents for SOB. ?? Patient had ablation for aflutter in December but subsequently developed afib there after. He had sotalol load planned for January but it was canceled because he missed a dose of his eliquis. Failed rhythm control with Amiodarone this morning. Will stop amio in light of worsening thrombocytopenia due to c/f drug induced ITP and continue rate control with metop tartrate alone. EP is aware and will plan to discuss afib ablation with him today. Will trial digoxin if rate control is challenging. #Atrial Fibrillation w RVR s/p SYDNEY cardioversion #hx Aflutter s/p Ablation #new HFrEF #ADHF - continue xarelto 20 mg qPM - TTE cardioversion completed - Begin Metoprolol 50 mg - stop Amiodarone load - Bumex as above ?? #HLD - home pravastatin 20 mg qD ?? #Pulmonary Edema- resolved - Patient had good response to lasix - Will order ProBNP for Volume status - Bumex 2 mg qd ?? #JEEVAN - Off CPAP #T2DM - SSI ?? 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 - Heme consulted and following - hapto 164 - fibrinogen 553, - LDH 239 - Coags wnls - PBS pending, - IPF inappropriately low - Hold Rivaroxiban for Platelets <20 #Housekeeping: - DVT PPx: Xarelto - Diet: CC2 Code Status: Attempt Cardiopulmonary Resuscitation - Inpatient Adeola Johnson MD Internal Medicine PGY-3 Pager [phone], M1-S1 Service Associated attestation - Martir Rios MD - 03/04/2022 5:56 PM EDT Cardiology Attending Addendum Active Hospital Problems Diagnosis Atrial fibrillation Thrombocytopenia Acute systolic heart failure JEEVAN on CPAP Macrocytic anemia Status post ablation of atrial flutter 01/02/2022 Type 2 diabetes mellitus Resolved Hospital Problems Diagnosis Date Resolved Acute hypoxemic respiratory failure 03/02/2022 I have interviewed and examined the patient, reviewed the available data, and have discussed my findings, assessment and plan with the patient and the team on rounds today. I agree with Dr. Johnson'snote as below which reflects our discussion. * Itzel Salazar RN - 03/04/2022 6:27 AM EDT OUTCOME EVALUATION NOTE: ?? OUTCOME SUMMARY: ?? A+Ox4. VSS. Denies CP/SOB/weakness/dizziness/pain. Patient using urinal overnight. ?? PLAN MOVING FORWARD: ?? Diurese Appropriate discharge planning ?? INDIVIDUALIZED FALL PREVENTION INTERVENTIONS: ?? Patient-specific fall risk factors per assessment: [current deficits]: tele wires, walker, unfamiliar environment, neuropathy, dyspnea on exertion ?? Assistance [level of assistance required for transfers and ambulation]: SBA w/ walker ?? Supervision [direct monitoring required during toileting and ADLs]: eyes on ?? Surveillance [continuous indirect monitoring]: telemetry, purposeful hourly rounding ?? Patient-specific fall prevention interventions for sensory deficits provided, if applicable: call montero in reach, non-skid socks when OOB, lighting adjusted for specific tasks, bed alarm on ? [facility] GOAL OUTCOME EVALUATION: ongoing ?? * Emily Mayfield MSW - 03/03/2022 3:08 PM EDT SOCIAL WORK NURSE consulted for meals on wheels referral and cleaning person resources. Best number to reach pt and : [phone] Office of Care Management Float/Weekend Splicer Operator BONILLA Lobo Pager [phone] * Kailee Lewis OT - 03/03/2022 11:04 AM EDT Occupational Therapy Evaluation Patient profile: Kelly Shell is a 72 y.o. male with hx of T2DM HLD, GERD, BPH, Aflutter s/p ablation and DCCV on 01/02/22 recently switched for eliquis ??to xarelto, JEEVAN not on CPAP who presentsfor SOB. Past Medical History: Diagnosis Date ??? Atrial flutter ??? GERD (gastroesophageal reflux disease) ??? JEEVAN (obstructive sleep apnea) ??? T2DM (type 2 diabetes mellitus) No past surgical history on file. Social History: Home set up: Pt lives with his and son in a 2 level home with 3 NASEEM. Bathroom is on the main level. Pt initially stated required total assist but also stated she is independent with BADL and ambulates with a walker. Son has physical limitations and is unable to assist pt. Four step daughters live nearby and assist with meal prep and transportation. Pt states one daughter is going to retire and be available to assist pt and at home. PLOF: Independent with I/ADLs. Has been using a rollator recently d/t a knee injury. Pt hasn't driven recently, reportedly d/t decreased strength and AROM in R foot/ankle following his knee injury and is waiting for clearance from his MD to resume driving. Pt has been sleeping in a lift recliner. DME: shower stool, grab bars in shower, raised toilet, rollator Falls: 1 fall 2 weeks ago Precautions/Special Considerations: at risk to fall, carb control diet, Subjective: We don't have VNA where we live. They don't want to do the work. Objective: Seen today for OT evaluation. Pain: 0/10 Vitals: VSS on RA Cognitive Status/Behavior: ?? Behavior / Mood: alert and cooperative ?? Alert and oriented to: person, place, time and situation ?? Follows commands: multi step and 100% of the time ?? Attention: WFL ?? Safety awareness: WFL Vision & Perception: WNL/WFL Communication/Hearing: WFL Musculoskeletal: Hand dominance: right Strength/AROM: WFL Coordination: WFL Sensation: neuropathy in B feet Skin: NA Activities of Daily Living: Self-feeding: N/A; anticipate independence Grooming: NA; anticipate independence Dressing: pt independently donned slip-on shoes. Pt fully dressed in street clothes and reports independence with UB/LB dressing. Bathing: NA Toileting: NA Functional Mobility: Supine to sit: independent from flat bed Sit to stand: independent Ambulation: independent bed to chair, ~ 5 ft Stand to sit: independent Sit to supine: NA Balance: Static sitting: good Dynamic sitting: good Static standing balance: good Dynamic standing balance: good Education: Patient has been educated on Role of occupational therapy/rehabilitation, Transfers, ADL, Positioning, Safety, Functional Mobility, Activity pacing/Energy conservation, Balance, Recommendations and Discharge planning and pt verbalized understanding. Patient status, treatment, and mobility recommendations discussed with nursing. Assessment: Pt has been seen for occupational therapy evaluation. Kelly Shell presents with the following performance skill deficits and client factors: deconditioning, precautions/bracing andcompromised mobility status. These performance deficits have led to activity limitations and participation restrictions in the following areas of occupation: home management, driving, community mobility and caregiver duties. However, despite the deficits listed above pt demonstrates the ability to perform functional transfers and basic ADLs without assist. Anticipate that pt will return home withassistance from family if needed once medically ready. Do not anticipate further OT needs while hosp italized. Equipment needs at discharge: Equipment Needs Upon Discharge (OT): None Anticipated Discharge Disposition (OT): home Staff Recommendations: ??? Bathroom for toileting ??? Reorient pt multiple times a day as needed ??? Ambulate 3x/day with supervision ??? Assist pt OOB to chair for meals ??? Promote wellbeing through engagement in leisure and relaxation activities ??? Encourage good sleep hygiene with appropriate sleep/wake cycles ??? Utilize upright chair position using bed features or transfer to recliner chair as appropriate ??? Encourage participation in ADL's and provide physical assist only as needed Plan: OT: Therapy Frequency (OT): evaluation only Total Minutes, Occupational Therapy: 2016 OT Evaluation Code Rationale: ?? Diagnosis & Pertinent Co-Morbidities affecting Plan of Care: see PMHx ?? Occupational Profile & Client History: Brief Expanded Extensive x ?? Assessment of Occupational Performance: 1-3 performance deficits x 3-5 performance deficits 5 + performance deficits ?? Clinical Decision Making: Low Moderate High x Clinical decision making of low complexity using standardized patient assessment instrument and measurable assessment of functional outcome. Pager: [phone] Kailee Lewis OTR/L Occupational Therapy Rehabilitation Department * Emily Woods PT - 03/03/2022 10:53 AM EDT Physical Therapy Evaluation Patient profile: 72 y.o male presenting with hx of T2DM, HLD, GERD, BPH, aflutter s/p ablation and DCCV on 01/02/22. He presented for SOB, now with a-fib and HF. He underwent ECHO and cardioversion. Hewas diuresed aggressively and meds adjusted. Patient with the following active problems: Past Medical History: Diagnosis Date ??? Atrial flutter ??? GERD (gastroesophageal reflux disease) ??? JEEVAN (obstructive sleep apnea) ??? T2DM (type 2 diabetes mellitus) Social History: Home set-up: Lives with spouse and step son (both physically disabled) in his own home that's 1 level Bathroom Set-up: walk in shower with fold up stool for spouse, grab bars everywhere Stairs: 3 NASEEM with rail, 1 step inside the home Baseline Mobility: independent with rollator, no longer driving Equipment at home: fold up stool, grab bars, rollator walker Fall history: one fall * he uses a rollator walker since his fall earlier this year and step son can physically care for themselves but [place] does the iADLs other than driving. The step son drives. Precautions/Special Considerations: fall risk, skin breakdown risk Lines: PIV, tele Activity Orders: none Mobility and Positioning Recommendations: ?? Pt. to utilize FWW and supervision for ambulation and transfers with nursing. ?? Please encourage up to chair for meal times as able. ?? Pt encouraged to ambulate frequently with staff, getting into the bathroom for toileting and walking out in the lang >/= 3 times daily as able. Subjective: ???I can't get any help at home. Theres no one who can come to the house.?? Objective: Pt seen for evaluation today. Pain: none Vital Signs/Cardiopulmonary: At Rest With Activity SpO2 (RA) % BP (MAP) mmHg BP: (!) 134/93 mmHg HR 76 bpm Heart Rate: 95 bpm Mental Status: alert, oriented to person, place, and time, able to read the clock on the wall, aware of reason for admission and health issues this year. Some conflicting information when talking with other providers. Vision: L eye esotropia Skin: L LE edematous compared to right Musculoskeletal: ROM: functional Strength: at least 3-/5 Sensation: L LE deficit Bed Mobility: Supine to Sit: independent Sit to Supine: not tested Transfers: Sit to Stand: independent up to FWW Stand to Sit: independent without device and from FWW Bed to Chair: not tested Gait: Distance: 150' Device used: FWW Level of assist: independent Gait mechanics: swing through, walked out of L sandal requiring cues to replace, mild shuffling gait quality Balance: Sitting Static: good Sitting Dynamic: good Standing Static: good Standing Dynamic / Gait: Good, toileted independently, reaching outside of VIVIANA without UE support without over LOB Education/Exercise Instruction: role of PT Assessment: Kelly Shell was seen today for physical therapy evaluation. Pt presents with gait deviations, decreased activity tolerance, and B LE edema (L>R). He is mobilizing independently with and without a FWW with mild SOB. He met all goals of acute PT and anticipate discharge later today. Recommend home PT for balance and therex however he declined when CM offered and indicated he would go to outpatient PT if he needed anything. Plan: Therapy Frequency (PT): Monitor. Patient/family understand and agree with plan as stated above. Discharge Recommendations: Based on the current findings, when medically ready for hospital discharge: -Anticipated Discharge Disposition (PT): home with home health (would benefit from additional home supports for spouse (reports he has tried)). He declined home PT for himself and would prefer outpatient PT. Consult Recommendations: No other consults recommended at this time. Equipment needs: Anticipated Equipment Needs at Discharge (PT): None Patient status, treatment, and mobility recommendations discussed with nursing. Thank you for this consult. Time IN / OUT: 8530-0998 Total Minutes, Physical Therapy: 24 Billing Code: low complexity 2017 PT Evaluation Code Rationale: ?? Diagnosis & Pertinent Co-Morbidities, personal factors, and present illness affecting Plan of Care: (see above); Additional personal factors or co- morbidities that impact plan: ?? Total # of Factors: 0 1-2 3+ X ?? Examination of body system impairments, functional limitations and behaviors, and/or participation restrictions. Addressing 1-2 elements Addressing 3 + elements Addressing 4 + elements X ?? Clinical presentation: See assessment above. Stable/Uncomplicated Evolving/Fluctuating Symptoms Unstable/Unpredictable X ?? Clinical decision making of low complexity based on pt's functional performance as outlined in this evaluation. * Terri Tomlinson MD - 03/03/2022 6:43 AM EDT Inpatient Cardiology Progress Note Patient Name: Kelly Shell Date of Admission: 02/28/2022 ( Hospital Day 3 days ) Service: S1 ID: Kelly Shell is a 72 y.o. male with hx of T2DM HLD, GERD, BPH, Aflutter s/p ablation and DCCV on 01/02/22 recently switched for eliquis to xarelto, JEEVAN not on CPAP who presents for SOB. Active Problems: Active Hospital Problems Diagnosis ??? Atrial fibrillation ??? JEEVAN on CPAP ??? Acute systolic heart failure ??? Macrocytic anemia ??? Status post ablation of atrial flutter 01/02/2022 ??? Type 2 diabetes mellitus Resolved Hospital Problems Diagnosis Date Resolved ??? Acute hypoxemic respiratory failure 03/02/2022 24 hr events: Overnight - No acute events overnight ROS: Denies CP, SOB, palpitations, PND, Orthopnea, dizziness/LH, LE swelling or pain, n/v, abd pain. Physical Exam: Last value Range last 24 hrs Temperature Temp: 36.5 ??C (97.7 ??F) Temp: [36.5 ??C (97.7 ??F)-36.8 ??C (98.2 ??F)] Heart Rate Heart Rate: 75 Heart Rate: [65-79] Blood Pressure BP: 118/69 BP: (100-128)/(61-82) Respiratory Rate Resp: 19 Resp: [12-23] SpO2 SpO2: 95 % SpO2: [94 %-98 %] Weight: Patient Vitals for the past 168 hrs: Weight 03/03/22 0341 110 kg (242 lb 8.1 oz) 03/02/22 0540 111.1 kg (245 lb) 03/01/22 0600 111.6 kg (246 lb 0.5 oz) 02/28/221999 117 kg (257 lb 15 oz) 02/28/22 1025 113.4 kg (250 lb) Admit Weight: 113.4 kg Yesterday's net I/O's: Intake/Output Summary (Last 24 hours) at 03/03/2022 0643 Last data filed at 03/03/2022 0000 Gross per 24 hour Intake 1129.5 ml Output 2225 ml Net -1095.5 ml Net I/O's since admission: Patient Vitals for the past 168 hrs: Weight 03/03/22 0341 110 kg (242 lb 8.1 oz) 03/02/22 0540 111.1 kg (245 lb) 03/01/22 0600 111.6 kg (246 lb 0.5 oz) 02/28/221999 117 kg (257 lb 15 oz) 02/28/22 1025 113.4 kg (250 lb) Gen: pleasant male in NAD CV: RRR, no m/r/g, JVP 13+ above sternal angle Resp: CTAB comfortably on RA Abd: nondistended, soft, NT, nabs throughout Ext: 1+ pitting pedal edema bilaterally Neuro: alert and responsive. Labs Recent Labs 03/03/22 0406 03/02/22 0320 03/01/22 0430 WBC 9.0 9.4 9.9* HGB 13.0* 12.9* 12.9* HCT 39.9* 40.2* 39.5* PLATELET 68* 77* 90* Recent Labs 03/03/22 0406 03/02/22 1705 03/02/22 1325 03/02/22 0829 03/02/22 0320 03/01/22 1257 03/01/22 0430 NA 137 -- 140 -- 138 < > 142 K 3.7 4.1 3.7 < > 3.8 < > 3.6 CL 100 -- 101 -- 100 < > 103 CO2 25 -- 28 -- 28 < > 27 BUN 22* -- -- -- 22* -- 24* CREATININE 0.80 -- -- -- 0.87 -- 0.96 < > = values in this interval not displayed. Recent Labs 02/28/22 1112 AST 24 ALT 20 ALKPHOS 78 BILITOT 1.7* BILIDIR 0.4* Recent Labs 03/03/22 0406 03/02/22 0320 03/01/22 0430 02/28/22 2130 02/28/22 1112 CALCIUM 8.8 8.5 8.6 < > 9.2 MAGNESIUM 0.82 0.94 0.88 < > 0.77 PHOS -- -- -- -- 3.7 < > = values in this interval not displayed. No results for input(s): INR, PT, PTT in the last 168 hours. No results for input(s): CK, TROPONINT in the last 168 hours. Scheduled Medications: ??? metFORMIN 1,000 mg Oral BID WC ??? AMIOdarone 400 mg Oral BID Followed by ??? [START ON 03/09/2022] AMIOdarone 200 mg Oral BID Followed by ??? [START ON 03/16/2022] AMIOdarone 200 mg Oral Daily ??? metoprolol succinate XL 50 mg Oral Daily ??? polyethylene glycoL (MIRALAX) oral powder 17 g Oral Daily ??? sodium chloride 0.9 % (flush) 5 mL Intravenous BID ??? rivaroxaban 20 mg Oral QPM ??? insulin lispro 1-4 Units Subcutaneous Q4H ROB ??? insulin lispro 0-8 Units Subcutaneous TID WC PRN Medications: potassium chloride ER OR potassium chloride ER, sodium chloride 0.9 % (flush), lidocaine, glucose 40% oral geL OR dextrose 10% OR glucagon Assessment: Kelly Shell is a 72 y.o. male with hx of T2DM HLD, GERD, BPH, Aflutter s/p ablation and DCCV on 01/02/22 recently switched for eliquis to xarelto, JEEVAN not on CPAP who presents for SOB. ?? Patient had ablation for aflutter in December but subsequently developed afib there after. He had sotalol load planned for January but it was canceled because he missed a dose of his eliquis. 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 Previous echo prior to ablation is normal E. Hecurrently has sxs of ADHF. We diuresed aggressively ovn. Was placed on digoxin to slow rate/increase inotrope. Planned for SYDNEY DCCV in the AM. begin Beta franklin + amniodarone after SYDNEY with cardiovesion. Continue Xeralto. Patient had great response to lasix diuresis to which it was held since lastnight. Patient volume status appears stabilized with the good lasix response. Gave IV 40 lasix and p atient had UOP1.5L in afternoon. Pt today still had JVP of [address] on torsemide 40mg BID to continue diuresis and prepare for outpatient dose. Point of Care u/s LVEF ~40%. Will order limited echo for LVEF. Will order ProBNP, begin metoprolol 50 mg, consult PT/OT. Patient platelets continue to downtrend today: Heme has been consulted: As per recommendation: Peripheral blood smear, coag panel, IPF, LDH, Heptoglobin, fibrinogen. Possibility of drug induced ITP: amiodarone, torsemide. Sulfa diuretics such as lasix and torsemide have possibility for ITP. Recommend changing diuretics to different drug class such as Bumex. Likely to start steroid. ?? #Atrial Fibrillation w RVR s/p SYDNEY cardioversion #hx Aflutter s/p Ablation #new HFrEF #ADHF - continue xarelto 20 mg qPM - TTE cardioversion completed - - Begin Metoprolol 50 mg - Begin Amiodarone ?? #HLD - home pravastatin 20 mg qD ?? #Pulmonary Edema - Patient had good response to lasix - Will order ProBNP for Volume status ?? #JEEVAN - Off CPAP #T2DM - SSI ?? 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 #Housekeeping: - DVT PPx: Xarelto - Diet: CC2 Code Status: Attempt Cardiopulmonary Resuscitation - Inpatient [facility] Fiordlaiza Tomlinson MD Internal Medicine PGY-1 Pager [phone], M1-S1 Service Associated attestation - Martir Rios MD - 03/03/2022 10:00 PM EDT Cardiology Attending Addendum Active Hospital Problems Diagnosis Atrial fibrillation Thrombocytopenia Acute systolic heart failure JEEVAN on CPAP Macrocytic anemia Status post ablation of atrial flutter 01/02/2022 Type 2 diabetes mellitus Resolved Hospital Problems Diagnosis Date Resolved Acute hypoxemic respiratory failure 03/02/2022 I have interviewed and examined the patient, reviewed the available data, and have discussed my findings, assessment and plan with the patient and the team on rounds today. I agree with Dr. Tomlinson's note as below which reflects our discussion. Appreciate input by hematology team. * Leonarda Boyd RN - 03/03/2022 4:55 AM EDT OUTCOME EVALUATION NOTE: OUTCOME SUMMARY: Pt denies CP, SOB, nausea, dizziness, or n/t. NSR on tele. No acute events overnight. See doc flowsheet for full pt assessment. Call montero within reach. VSS. No further needs at this time. PLAN MOVING FORWARD: ann Ornelas/yany planning INDIVIDUALIZED FALL PREVENTION INTERVENTIONS: Patient-specific fall risk factors per assessment: [current deficits]: Hospital environment, lines/devices Assistance [level of assistance required for transfers and ambulation]: SBA w/ FWW Supervision [direct monitoring required during toileting and ADLs]: SBA Surveillance [continuous indirect monitoring]: Telemetry, hourly rounding Patient-specific fall prevention interventions for sensory deficits provided, if applicable: [X] N/A * Terri Tomlinson MD - 03/02/2022 7:52 AM EDT Inpatient Cardiology Progress Note Patient Name: Kelly Shell Date of Admission: 02/28/2022 ( Hospital Day 2 days ) Service: S1 ID: Kelly Shell is a 72 y.o. male with hx of T2DM HLD, GERD, BPH, Aflutter s/p ablation and DCCV on 01/02/22 recently switched for eliquis to xarelto, JEEVAN not on CPAP who presents for SOB. Active Problems: Active Hospital Problems Diagnosis ??? Atrial fibrillation ??? JEEVAN on CPAP ??? CHF (congestive heart failure) ??? Macrocytic anemia ??? Type 2 diabetes mellitus Resolved Hospital Problems Diagnosis Date Resolved ??? Acute hypoxemic respiratory failure 03/02/2022 ??? Typical atrial flutter 03/02/2022 24 hr events: Overnight - No acute events overnight ROS: Denies CP, SOB, palpitations, PND, Orthopnea, dizziness/LH, LE swelling or pain, n/v, abd pain. Physical Exam: Last value Range last 24 hrs Temperature Temp: 36.8 ??C (98.2 ??F) Temp: [36.7 ??C (98.1 ??F)-37 ??C (98.6 ??F)] Heart Rate Heart Rate: 65 Heart Rate: [65-88] Blood Pressure BP: 117/80 BP: (108-135)/(61-94) Respiratory Rate Resp: 20 Resp: [8-23] SpO2 SpO2: 94 % SpO2: [94 %-98 %] Weight: Patient Vitals for the past 168 hrs: Weight 03/02/22 0540 111.1 kg (245 lb) 03/01/22 0600 111.6 kg (246 lb 0.5 oz) 02/28/221999 117 kg (257 lb 15 oz) 02/28/22 1025 113.4 kg (250 lb) Admit Weight: 113.4 kg Yesterday's net I/O's: Intake/Output Summary (Last 24 hours) at 03/02/2022 0752 Last data filed at 03/02/2022 0716 Gross per 24 hour Intake 517.7 ml Output 2925 ml Net -2407.3 ml Net I/O's since admission: Patient Vitals for the past 168 hrs: Weight 03/02/22 0540 111.1 kg (245 lb) 03/01/22 0600 111.6 kg (246 lb 0.5 oz) 02/28/22 2000 117 kg (257 lb 15 oz) 02/28/22 1025 113.4 kg (250 lb) Gen: pleasant male in NAD CV: RRR, no m/r/g, JVP 14+ above sternal angle Resp: CTAB comfortably on RA Abd: nondistended, soft, NT, nabs throughout Ext: 1+ pitting pedal edema bilaterally Neuro: alert and responsive. Labs Recent Labs 03/02/22 0320 03/01/22 0430 02/28/22 1112 WBC 9.4 9.9* 11.6* HGB 12.9* 12.9* 13.5* HCT 40.2* 39.5* 43.2 PLATELET 77* 90* 108* Recent Labs 03/02/22 0320 03/01/22 1257 03/01/22 0430 02/28/22 2130 NA 138 140 142 144 K 3.8 4.2 3.6 3.9 CL 100 102 103 105 CO2 28 30 27 24 BUN 22* -- 24* 26* CREATININE 0.87 -- 0.96 0.87 Recent Labs 02/28/22 1112 AST 24 ALT 20 ALKPHOS 78 BILITOT 1.7* BILIDIR 0.4* Recent Labs 03/02/22 0320 03/01/22 0430 02/28/22 2130 02/28/22 1112 CALCIUM 8.5 8.6 8.6 9.2 MAGNESIUM 0.94 0.88 0.86 0.77 PHOS -- -- -- 3.7 No results for input(s): INR, PT, PTT in the last 168 hours. No results for input(s): CK, TROPONINT in the last 168 hours. Scheduled Medications: ??? metoprolol succinate XL 37.5 mg Oral Daily ??? AMIOdarone 400 mg Oral Daily And ??? AMIOdarone 200 mg Oral BID And ??? AMIOdarone 200 mg Oral Daily ??? metFORMIN 1,000 mg Oral BID WC ??? sodium chloride 0.9 % (flush) 5 mL Intravenous BID ??? rivaroxaban 20 mg Oral QPM ??? insulin lispro 1-4 Units Subcutaneous Q4H ROB ??? insulin lispro 0-8 Units Subcutaneous TID WC PRN Medications: potassium chloride ER OR potassium chloride ER, sodium chloride 0.9 % (flush), lidocaine, glucose 40% oral geL OR dextrose 10% OR glucagon Assessment: Kelly Shell is a 72 y.o. male with hx of T2DM HLD, GERD, BPH, Aflutter s/p ablation and DCCV on 01/02/22 recently switched for eliquis to xarelto, JEEVAN not on CPAP who presents for SOB. ?? Patient had ablation for aflutter in December but subsequently developed afib there after. He had sotalol load planned for January but it was canceled because he missed a dose of his eliquis. 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 Previous echo prior to ablation is normal E. Hecurrently has sxs of ADHF. We diuresed aggressively ovn. Was placed on digoxin to slow rate/increase inotrope. Planned for SYDNEY DCCV in the AM. begin Beta franklin + amniodarone after SYDNEY with cardiovesion. Continue Xeralto. Patient had great response to lasix diuresis to which it was held since lastnight. Patient volume status appears stabilized with the good lasix response. Gave IV 40 lasix and p atient had UOP1.5L in afternoon . Point of Care u/s LVEF ~40%. Will order limited echo for LVEF. Will order ProBNP, begin metoprolol 50 mg, consult PT/OT. Pt likely can discharge tomorrow. ? Neuro NICHELLE ?? CV #Atrial Fibrillation w RVR s/p SYDNEY cardioversion #hx Aflutter s/p Ablation #new HFrEF #ADHF - continue xarelto 20 mg qPM - TTE cardioversion completed - IV lasix 40 mg in AM with UOP 1.5L in PM - Begin Metoprolol 50 mg - Begin Amiodarone ?? #HLD - home pravastatin 20 mg qD ?? Pulmonary #Pulmonary Edema - Patient had good response to lasix - Will order ProBNP for Volume status ?? #JEEVAN - Off CPAP ?? GI NICHELLE ?? Renal NICHELLE ?? Endocrine #T2DM - SSI ?? ID NICHELLE ?? Heme NICHELLE ?? Psych NICHELLE ? #Housekeeping: - DVT PPx: Xarelto - Diet: CC2 Code Status: Attempt Cardiopulmonary Resuscitation - Inpatient Terri Tomlinson MD Internal Medicine PGY-1 Pager [phone], M1-S1 Service Associated attestation - Martir Rios MD - 03/03/2022 12:05 AM EDT Cardiology Attending Addendum Active Hospital Problems Diagnosis Atrial fibrillation Acute systolic heart failure JEEVAN on CPAP Macrocytic anemia Status post ablation of atrial flutter 01/02/2022 Type 2 diabetes mellitus Resolved Hospital Problems Diagnosis Date Resolved Acute hypoxemic respiratory failure 03/02/2022 I have interviewed and examined the patient, reviewed the available data, and have discussed my findings, assessment and plan with the patient and the team on rounds today. I agree with Dr. Tomlinson's note as below which reflects our discussion. * Terri Tomlinson MD - 03/01/2022 7:56 AM EDT Inpatient Cardiology Progress Note Patient Name: Kelly Shell Date of Admission: 02/28/2022 ( Hospital Day 1 day ) Service: S1 ID: Kelly Shell is a 72 y.o. male with hx of T2DM HLD, GERD, BPH, Aflutter s/p ablation and DCCV on 01/02/22 recently switched for eliquis to xarelto, JEEVAN not on CPAP who presents for SOB. Active Problems: Active Hospital Problems Diagnosis ??? CHF (congestive heart failure) Resolved Hospital Problems No resolved problems to display. 24 hr events: Overnight - Lasix drip stopped after 4L output ROS: Denies CP, SOB, palpitations, PND, Orthopnea, dizziness/LH, LE swelling or pain, n/v, abd pain. Physical Exam: Last value Range last 24 hrs Temperature Temp: 36.4 ??C (97.5 ??F) Temp: [36.4 ??C (97.5 ??F)-36.5 ??C (97.7 ??F)] Heart Rate Heart Rate: 76 Heart Rate: [54-146] Blood Pressure BP: 119/79 BP: (100-155)/(59-110) Respiratory Rate Resp: 13 Resp: [12-30] SpO2 SpO2: 95 % SpO2: [91 %-98 %] Weight: Patient Vitals for the past 168 hrs: Weight 03/01/22 0600 111.6 kg (246 lb 0.5 oz) 02/28/221999 117 kg (257 lb 15 oz) 02/28/22 1025 113.4 kg (250 lb) Admit Weight: 113.4 kg Yesterday's net I/O's: Intake/Output Summary (Last 24 hours) at 03/01/2022 0756 Last data filed at 03/01/2022 0600 Gross per 24 hour Intake 230.67 ml Output 5175 ml Net -4944.33 ml Net I/O's since admission: Patient Vitals for the past 168 hrs: Weight 03/01/22 0600 111.6 kg (246 lb 0.5 oz) 02/28/221999 117 kg (257 lb 15 oz) 02/28/22 1025 113.4 kg (250 lb) Gen: pleasant male in NAD CV: RRR, no m/r/g, Resp: CTAB comfortably on RA Abd: nondistended, soft, NT, nabs throughout Ext: 1+ pitting pedal edema bilaterally Neuro: alert and responsive. Labs Recent Labs 03/01/22 0430 02/28/22 1112 WBC 9.9* 11.6* HGB 12.9* 13.5* HCT 39.5* 43.2 PLATELET 90* 108* Recent Labs 03/01/22 0430 02/28/22 2130 02/28/22 1112 NA 142 144 139 K 3.6 3.9 4.5 CL 103 105 102 CO2 27 24 23 BUN 24* 26* 29* CREATININE 0.96 0.87 0.95 Recent Labs 02/28/22 1112 AST 24 ALT 20 ALKPHOS 78 BILITOT 1.7* BILIDIR 0.4* Recent Labs 03/01/22 0430 02/28/22 2130 02/28/22 1112 CALCIUM 8.6 8.6 9.2 MAGNESIUM 0.88 0.86 0.77 PHOS -- -- 3.7 No results for input(s): INR, PT, PTT in the last 168 hours. No results for input(s): CK, TROPONINT in the last 168 hours. Scheduled Medications: ??? magnesium sulfate 2 g Intravenous Once ??? sodium chloride 0.9 % (flush) 5 mL Intravenous BID ??? rivaroxaban 20 mg Oral QPM ??? insulin lispro 1-4 Units Subcutaneous Q4H ROB ??? insulin lispro 0-8 Units Subcutaneous TID WC ??? digoxin 250 mcg Intravenous Q6H PRN Medications: potassium chloride ER OR potassium chloride ER, sodium chloride 0.9 % (flush), lidocaine, glucose 40% oral geL OR dextrose 10% OR glucagon Assessment: Kelly Shell is a 72 y.o. male with hx of T2DM HLD, GERD, BPH, Aflutter s/p ablation and DCCV on 01/02/22 recently switched for eliquis to xarelto, JEEVAN not on CPAP who presents for SOB. ?? Patient had ablation for aflutter in December but subsequently developed afib there after. He had sotalol load planned for January but it was canceled because he missed a dose of his eliquis. 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 Previous echo prior to ablation is normal E. Hecurrently has sxs of ADHF. We diuresed aggressively ovn. Was placed on digoxin to slow rate/increase inotrope. Planned for SYDNEY DCCV in the AM. begin Beta franklin + amniodarone after SYDNEY with cardiovesion. Continue Xeralto. Patient had great response to lasix diuresis to which it was held since lastnight. Patient volume status appears stabilized with the good lasix response. ? Neuro NICHELLE ?? CV #Atrial Fibrillation w RVR #hx Aflutter s/p Ablation #new HFrEF #ADHF - continue xarelto 20 mg qPM - TTE cardioversion in AM - lasix ggt 5 mg/hr, s/p IV lasix 40 mg with good response: complete - Begin Beta franklin - Continue Xeralto - Begin Amiodarone ?? #HLD - home pravastatin 20 mg qD ?? Pulmonary #Pulmonary Edema - Patient had good response to lasix - Volume status appears stable ?? #JEEVAN - Off CPAP ?? GI NICHELLE ?? Renal NICHELLE ?? Endocrine #T2DM - SSI ?? ID NICHELLE ?? Heme NICHELLE ?? Psych NICHELLE ? #Housekeeping: - DVT PPx: Xarelto - Diet: CC2 Code Status: Attempt Cardiopulmonary Resuscitation - Inpatient [facility] Fiordaliza Tomlinson MD Internal Medicine PGY-1 Pager [phone], M1-S1 Service Associated attestation - Jorge Deutsch MD - 03/02/2022 6:53 AM EDT Patient was seen and examined in conjunction with Dr. Tomlinson, with whom I agree. Overnight, the patient has had a brisk diuresis, and digoxin load has resulted in significant reduction in his heart rates which are now in the 80s to 90s. Clinically, his oxygen requirements have come down to only 2 L nasal cannula and he is comfortable. He underwent successful SYDNEY guided cardioversion to sinus rhythm, and will be loaded with amiodarone. We will discontinue the digoxin, and give him low-dose beta-franklin for rate control in addition to the amiodarone. Anticipate a 1 to 3-month course of amiodaroneat which time it would be discontinued. We did discuss the potential side effects of this medication and the need for close monitoring of multiple labs while on amnio. Again, this will not be a long-term medication. He likely can be discharged to the stepdown unit today and hopefully to home tomorrow if he continues to maintain sinus rhythm. * Jama Mishra [facility] - 03/01/2022 12:04 AM EDT Respiratory Therapy NIV Note ?? Kelly Shell??Linden??is a??72 y.o.??male??with a PMH of T2DM with??who presents to the Emergency Department??with SOB in the setting of persistent Afib and was tnsf to [facility] for further tx. NIV Settings: NIV Mode: Auto Titrating NIV Measurements: Resp: 13 SpO2: 95 % Laboratory: No results found for: PHART, NAR6TAB, PO2ART, ZZH4PNM, BEART Last Chest X-ray: Results for orders placed during the hospital encounter of 02/28/22 XR Chest One View Narrative EXAMINATION: XR CHEST ONE VIEW CLINICAL HISTORY: SOB TECHNIQUE: 1 view of the chest AP portable upright chest COMPARISON: None FINDINGS: Lungs are hypoinflated with bibasilar linear opacities and peripheral Yashira B lines. Small right greater than left pleural effusions. No pneumothorax or focal consolidation. Cardiomediastinal contours are normal for the AP portable technique. Pulmonary vasculature is slightly prominent. No free air below the diaphragm or focal extrathoracic soft tissue abnormality. No fracture. Impression Pulmonary vascular congestion with edema and small pleural effusions. Thank you for letting us participate in the care of this patient. If you are a health care provider and have any questions regarding this report, please contact the number below. For patients who have questions please contact the health medication care manager that requested your imaging first. Skin Assessment: NIV Skin Assessment WDL: WDL Mepilex Applied: Yes Assessment: Pt placed on auto titration CPAP and tolerating this well. High 10cm/Lo1 5Cm. Mepilex in place for skin preservation and comfort. Plan: Continue to support the pt with this modality overnight. Plans for intervention 03/01, will support as needed. Pt wore Cpap all night coming off at ~0600. Jama Mishra RCP * Tyrese Joy RCP - 02/28/2022 5:13 PM EDT Linden seen at request of Dr Everett this afternoon regarding CPAP in setting of Afib and fluid overload, receiving Diuretics. He was awake, on room air, able to speak in 4 or 5 word sentences. HR 120-145 on my visit. He tellsme that he had a sleep study done several months ago, but is unaware of result. No machine at home. I placed him on a V30 in Auto titrating CPAP mode. No bleed in. This did help with his WOB, he appears comfortable on this support. RR ~20. We will let him rest for a while on this, use it overnight for suspected JEEVAN documented in this encounter H&P Notes * Jorge Deutsch MD - 02/28/2022 4:56 PM EDT Images from the original note were not included. Inpatient Cardiology Admission History and Physical Patient Name: KELLY SHELL Date of : 1950 Age: 72 y.o. Hospital Admit Date: 02/28/2022 Inpatient Attending: Jorge Deutsch MD PCP: Domenica Atkins APRN Presenting Diagnosis/Chief Complaint: Aflutter, ADHF History of Present Illness: Kelly Shell is a 72 y.o. male with hx of T2DM HLD, GERD, BPH, Aflutter s/p ablation and DCCVon 01/02/22 recently switched for eliquis to xarelto, JEEVAN not on CPAP who presents for SOB 2/2 afib and ADHF. Patient is poor historian but states he has had worsening SOB for the past few months. His SOB as been worse at rest and with exertion. He denies have chest pain at any time. He reports he had a fallrecently onto his R leg (without any orthopedic injury) and had a follow up appointment with his PCP yesterday where she orders labs and did an EKG. She called him this morning saying his EKG showed aflutter and that he should come to the ED. In the ED T 97.7, Hr 120s-140s, BP 117/88, sating 98% on RA. WBC 11.6, Hb 13.5, Plt 108, Na 139, K 4.5, Cr 0.95, Mg 0.77. EKG showed Afib with RVR with VR 153. CXR showed pulmonary edema. TTE showed EF 23% with severe global hypokinesis, TV moderately decreased, severe dilated LA, moderate MR and TR. He received IV lasix 40 mg with good UOP. Patient noted his pulse was elevated to 144 in October. He went to the ED where TTE and CXR were normal. EKG showed aflutter with 2-1 AV block. He was recommended for admission but declined. [place] [facility] [place] complaints of [place]B and worsening insomnia as well as PND. He underwent [place]02 [place] [facility] [place] He presented to [place] clinic at [facility] on 01/10 were he wasfound to be in afib. Admission for sotalol load was planned for January but this was reportedly stopped due to him missing a dose of eliquis following his fall. He was recently switched to xarelto for cost. Review of Systems(Positives in Bold): General: fevers, chills, night sweats; recent weight changes; fatigue EENT: changes in vision; changes in hearing; rhinorrhea, congestion, sinus pain, sore throat Cardiovascular: chest pain; palpitations; dizziness or lightheadedness, edema Respiratory: SOB, LOAIZA , cough,wheeze GI: abdominal pain; nausea, vomiting, diarrhea, or constipation, blood in stool : dysuria; urgency, frequency, hesitancy Musculoskeletal: muscle or joint pain Endocrine: heat or cold intolerace; polyuria/polydipsia Heme: easy bruising or bleeding Neuro: headaches; numbness or tingling; weakness;incoordination Psych: mood good Past Medical History: No past medical history on file. Patient Active Problem List Diagnosis Code ??? Typical atrial flutter I48.3 ??? Type 2 diabetes mellitus E11.9 ??? CHF (congestive heart failure) I50.9 Past Surgical History: No past surgical history on file. Social History: Social History [...] and Sexual Activity ??? Alcohol use: Not on file ??? Drug use: Not on file ??? Sexual activity: Not on file Other Topics Concern ??? Not on file Social History Narrative ??? Not on file Social Determinants of Health Financial Resource Strain: Not on file Food Insecurity: Not on file Transportation Needs: Not on file Physical Activity: Not on file Housing Stability: Not on file Family History: No family history on file. Allergies: No Known Allergies Medications: (Not in a hospital admission) PHYSICAL EXAM: Last value Range last 24 hrs Temperature Temp: 36.5 ??C (97.7 ??F) Temp: [36.5 ??C (97.7 ??F)] Heart Rate Heart Rate: (!) 128 Heart Rate: [54-146] Blood Pressure BP: 115/83 BP: (107-146)/(72-110) Respiratory Rate Resp: 25 Resp: [12-30] SpO2 SpO2: 97 % SpO2: [94 %-98 %] No intake/output data recorded. Physical Exam General: Well appearing, alert and oriented HEENT: PERRLA, EOMI, MMM CV: RRR, nrml S1/2, no MRGs Lungs: Bibasilar crackles, otherwise clear Abd: NTND Ext: 1+ pitting edema b/l in LEs to above the knees but not all the way up the thighs Neuro: no focal deficits LABS: Recent Labs 02/28/22 1112 WBC 11.6* HGB 13.5* HCT 43.2 PLATELET 108* Recent Labs 02/28/22 1112 NA 139 K 4.5 CL 102 CO2 23 BUN 29* CREATININE 0.95 Recent Labs 02/28/22 1112 CALCIUM 9.2 MAGNESIUM 0.77 PHOS 3.7 No results for input(s): PT, PTT, FIBRINOGEN, DDIMER in the last 168 hours. Invalid input(s): THROMBIN TIME No results for input(s): INR in the last 168 hours. No results for input(s): AST, ALT, ALKPHOS, BILITOT, BILIDIR in the last 168 hours. No results for input(s): CK, TROPONINT in the last 168 hours. No results for input(s): LDH, URICACID in the last 168 hours. Recent Labs 02/28/22 1112 TSH 3.59 No results for input(s): HA1C in the last 7068 hours. Imaging/Diagnostics: Results for orders placed or performed during the hospital encounter of 02/28/22 CT Head wo Contrast (Generic) (Exam End: 02/28/2022 12:07 PM) Impression No acute intracranial process. Bilateral exotropia more prominent on the left side. Recommend clinical correlation. Thank you for letting us participate in the care of this patient. If you are a health care provider and have any questions regarding this report, please contact the number below. For patients who have questions please contact the health medication care manager that requested your imaging first. Chest One View (Exam End: 02/28/2022 12:33 PM) Impression Pulmonary vascular congestion with edema and small pleural effusions. Thank you for letting us participate in the care of this patient. If you are a health care provider and have any questions regarding this report, please contact the number below. For patients who have questions please contact the health medication care manager that requested your imaging first. SSMENT and PLAN: Kelly Sehll is a 72 y.o. male with hx of T2DM HLD, GERD, BPH, Aflutter s/p ablation and DCCVon 01/02/22 recently switched for eliquis to xarelto, JEEVAN not on CPAP who presents for SOB. Patient had ablation for aflutter in December but subsequently developed afib there after. He had sotalol load planned for January but it was canceled because he missed a dose of his eliquis. 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 He currently has sxs of ADHF. We will diurese aggressively ovn. Planned for SYDNEY DCCV in the AM. Will admit to CVCC as he is benefiting from NIV (CPAP). Neuro NICHELLE CV #Atrial Fibrillation w RVR #hx Aflutter s/p Ablation #new HFrEF #ADHF - continue xarelto 20 mg qPM - load digoxin 250 mg q6h - TTE cardioversion in AM - lasix ggt 5 mg/hr, s/p IV lasix 40 mg with good response - hold home metoprolol in context of ADHF #HLD - home pravastatin 20 mg qD Pulmonary #Pulmonary Edema - diurese as above #JEEVAN - CPAP prn GI NICHELLE Renal NICHELLE Endocrine #T2DM - SSI ID NICHELLE Heme NICHELLE Psych NICHELLE #Housekeeping: - DVT PPx: Xarelto - Diet: CC2 - Level of care: CVCC - Code Satus: FULL Alfredito Israel MD Internal Medicine PGY2 S1 Team, Pager [phone] Attending Addendum: The patient was seen and examined in conjunction with the resident physician on rounds. My history,physical exam findings, assessment, and plan are reflected in that note. Lab and relevant imaging data was reviewed and the plan was communicated with the patient and available family. In brief, this 72-year-old with known atrial flutter, status post ablation, also has underlying atrial fibrillation who has had relatively poor control. He was scheduled for admission for sotalol loading and cardioversion, but unfortunately missed a dose of his anticoagulation and admission was deferred. He then continued in rapid A. fib for several more weeks, which is likely resulted in his current situation of A. fib with RVR and decompensated heart failure with markedly reduced EF. Ideally,would like to slow his rate and plan for cardioversion. He is clearly in decompensated heart failure with reduced ejection fraction, which seems acute. I do not think beta-blockers are a good choice,and I agree with the plan for digoxin loading. Once he is clinically stable and diuresed, we can plan for SYDNEY cardioversion, and likely amiodarone load to keep him in sinus rhythm long enough to allow for LV recovery. Long- term, amiodarone would not be a good choice, but in the short-term, it would likely provide the most suppression of atrial fibrillation. If the patient becomes more unstable, we would need to move forward with emergent cardioversion. However, assuming we can slow his rate, diuresis, and optimize his heart failure, I think we can avoidintubation and emergent cardioversion. He should be admitted to an intensive care setting. Diagnosis is acute hypoxic respiratory failure requiring BIPAP due to acute heart failure with reduced ejection fraction. Jorge Deutsch MD, [facility], [facility] Attending Archeologist Pager [phone] documented in this encounter ED Notes * Lino Campo MD - 02/28/2022 5:35 PM EDT Emergency Department Sign-Out Note The patient was signed out to me by preceding ED team. Please see their notes for full details. I assumed the patient's care, reviewed the medical record, and discussed the patient's ED course with the previous treatment team. Pertinent labs and studies have been reviewed. Brief HPI Kelly Bull is a 72 y.o. male with a PMH of T2DM with who presents to the Emergency Department with SOB in the setting of persistent Afib and was awaiting transfer to cardiology service at the time of signout. ED Course (since sign-out to me) No acute changes or sudden symptomology. Pt admitted to cardiology floor. Assessment/Plan Kelly Bull is a 72 y.o. male with a PMH of T2DM presenting for concern of acute decompensated HF in setting of Afib. Stroke, brain bleed, and infection unlikely. Pt transferred to care of cardiology service for further management. Lino Campo MD Resident 02/28/222141 * Ramiro Conley NRP - 02/28/2022 3:40 PM EDT Respiratory here to see patient to evaluate * Ramiro Conley NRP - 02/28/2022 2:57 PM EDT Echo at the bedside * Shanique Hernandez RN - 02/28/2022 2:31 PM EDT Echo at bedside * Ramiro Conley NRP - 02/28/2022 12:56 PM EDT Patient in the room resting family at the bedside and he stated that he is very tired but no other changes * Ramiro Conley NRP - 02/28/2022 12:02 PM EDT Patient off to CT Scan * Brittany Live MD - 02/28/2022 11:39 AM EDT ED Resident Note HPI: Kelly Bull is a 72 y.o. male with a PMH of T2DM with who presents to the Emergency Department with SOB in the setting of persistent Afib after his PCP told him to go to the ED for management. Is accompanied by and stepdaughter Has hx of afib, aflutter s/p ablation 01/02/2022, butnow has had persistent afib. Was scheduled for a Sotalol load 02/20, but this was canceled in light of missing dose of Eliquis on 02/12 (now transitioned to Xaerelto) after instructed by his PCP to skip a dose after a fall 02/08. His stepdaughter and report that he has been taking his Xarelto consistently. His stepdaughter and also report that in recent weeks, the patients has been persistently tired, out of it, and confused. He denies any chest pain, lightheadedness. Discussed with: Patient Step daughter Did you discuss: 1. Resuscitation goals No 2. Expectations/Fears No Did your conversation change the patient's disposition? No Pt was seen under the supervision of an attending physician. Pertinent positives and negatives are included in the HPI, otherwise at least ten systems were reviewed and negative. Past Medical and Surgical Histories, Social History, Medications, Allergies were reviewed in the chart. Vitals: ED Triage Vitals BP: 117/88 [02/28/22 1026] Heart Rate: 54 [02/28/22 1025] Resp: 22 [02/28/22 1025] Temp: 36.5 ??C (97.7 ??F) [02/28/22 1025] Temp src: n/a SpO2: 98 % [02/28/22 1025] O2 Device: RA [02/28/22 1025] O2 Flow Rate (L/min): n/a Physical Exam Vitals reviewed. Constitutional: Appearance: He is obese. He is not toxic-appearing. Comments: Tired, nodding off during exam HENT: Head: Normocephalic and atraumatic. Mouth/Throat: Mouth: Mucous membranes are moist. Pharynx: Oropharynx is clear. Eyes: Extraocular Movements: Extraocular movements intact. Comments: Left lazy eye Cardiovascular: Rate and Rhythm: Tachycardia present. Rhythm irregular. Heart sounds: No murmur heard. Pulmonary: Breath sounds: No wheezing or rales. Comments: tachypneic Abdominal: General: Bowel sounds are normal. Tenderness: There is no abdominal tenderness. Musculoskeletal: Right lower leg: Edema present. Left lower leg: Edema present. Comments: +1 pitting edema bilaterally Skin: General: Skin is warm and dry. Neurological: Mental Status: He is oriented to person, place, and time. Comments: Slow to answer questions. ED Course: I have reviewed labs and imaging, images and available reports, and they are significant for: Last 2 wbc, hgb, hct plt Recent Labs 02/28/22 1112 01/02/22 0715 WBC 11.6* 8.8 HGB 13.5* 14.0 HCT 43.2 42.5 PLATELET 108* 179 Last 2 Lytes Recent Labs 02/28/22 1112 01/02/22 0715 NA 139 140 K 4.5 4.5 CL 102 105 CO2 23 23 BUN 29* 18 CREATININE 0.95 0.89 GLUCOSE 150 200* Last UA Recent Labs 02/28/22 1415 PHUADIP 5.0 SPGRAVITYUA 1.020 BLOODUADIP Negative KETONESUA Trace* GLUCOSEU Negative PROTEINUADIP 30* BILIRUBINUA Negative UROBILIUADIP Normal NITRATEUA Negative LEUKOESTERUA Negative Last TSH Recent Labs 02/28/22 1112 TSH 3.59 . I reviewed the EKG tracing: Rhythm: irregular Rate: 153 Relevant findings: Afib with RVR No orders to display ED Course as of 02/28/22 1637 SatFeb 28, [address] Live. Is tired, slightly confused but AOx3 to person, place, and president. and daughter in-law at bedside. 1353 Bedside cardiac U/S showing reduced EF indicating acute decompensated HF. CXR with pulmonary edema and small pleural effusions. 40 mg Lasix ordered. 1436 Spoke with cardiology, who will come and see patient. 1636 Cardiology admitting patient. Discontinued digoxin. Assessment and Plan: MDM 72 y.o. male with hx of persistent afib here with volume overload on exam, mental status change, and afib going in and out of RVR. Concern for acute decompensated HF in setting of afib. Also considering other causes of mental status change such as stroke, subdural hematoma, infection. Recent ECHO 12/12/2021 showed normal systolic function. Is however volume overloaded on physical exam and CXR showing pulmonary edema, bedside u/s indicative of reduce EF. Will begin diuresis with 40 mg Lasix. Consulting cardiology to admit patient. Mild leukocytosis consistent with stress response, negative U/A for infection, TSH wnl, CT head notindicative of acute intracranial process. Cardiology saw patient. Agree to admit. Started on Digoxin given persistent HR in high 140s. Discontinued after discussion with cardiology. The visit findings, diagnosis, and care plan were discussed with the patient. Brittany iLve MD Resident 02/28/22 1640 Associated attestation - Morgan Everett MD - 03/01/2022 1:38 PM EDT ED ATTENDING ATTESTATION NOTE The patient was seen in conjunction with the resident physician. I have independently performed thekey portions of the history and physical exam. I have personally reviewed nursing notes, vital signs, and diagnostic studies including labs, imaging studies and EKGs. I have discussed the details of the case with the resident and agree with the assessment and plan as described in the resident's note. Linden is a 72-year-old man with a history of diabetes and persistent atrial fibrillation and history of atrial flutter who presents to the emergency department with increasing fatigue, swelling, shortness of breath and intermittent confusion. Previous schedule for sotalol load earlier in January but canceled due to missing Eliquis on February 12. He has been taking Xarelto consistently. Has not missed any doses in the last 2 weeks. Has not had any other falls. He has been increasing more fatigued and short of breath and intermittently confused. He and his family do not report any other falls, infections, travel. He gets significantly more winded with any activity. On exam he appears to be mildly dyspneic with no accessory muscle use. He is arousable to voice andwill hold a conversation making eye contact. Moves all of his extremities. He has a irregularly irregular tachycardia. He has coarse breath sounds with rales on exam his abdomen is soft he has pitting edema in the lower extremities. His vitals show preserved blood pressure and irregularly irregular tachycardia. Labs with a hemoglobin of 13.5, with blood cell count of 11.6. Platelets of 108. Grossly normal electrolytes. proBNP of 1491. Normal TSH. No acute hemorrhage on CT of the head. UA that is not infected. EKG showing a A. fib with RVR. Limited bedside TTE with depressed LVEF. Assessment: Acute decompensated heart failure in setting of A. fib with RVR. Holding on additional doses of metoprolol given the new depressed ejection fraction. Started IV diuresis and discussion with cardiology will institute digoxin loaded. Admitting to cardiology service stepdown at this time given hemodynamic preservation. I also consulted respiratory therapy to evaluate for potential CPAP. He is normoxic at this time but with ongoing pulmonary edema may be helpful. IS PATIENT CRITICALLY ILL ? Is there a high potential of sudden, clinically significant, or life threatening deterioration? Yes Is there a need for direct personal assessment and management to treat/prevent multiple vital organfailure/deterioration? Yes PATIENT IS CRITICALLY ILL WITH THESE DIAGNOSES BEING MANAGED BY [facility] TEAM: Arrhythmia Atrial fibrillation Persistent Congestive Heart Failure Systolic Acute Pulmonary Edema: Acute Cardiogenic Systolic Acute I personally performed 30 minutes of aggregate critical care time exclusive of procedures and teaching. This includes time spent during direct patient evaluation and reassessment, interpreting diagnostic tests, directing life and/or organ supporting interventions and documentation on the unit. documented in this encounter Miscellaneous Notes * Care Management Discharge - Michelle Mack RN - 03/11/2022 12:28 PM EDT CARE MANAGEMENT FINAL DISCHARGE NOTE Chart reviewed, care reviewed with primary team and at interdisciplinary rounds. Patient is medically ready for discharge to home with assist from family/. Declines VNA/home health. Needs for Transition of Care: Plan for discharge is: Home w/o Services Outpatient Agency/Support Group Needs: None Agency Referrals & Follow-up Care:no referrals . Pt declines home health Transportation: family or friend will provide Wheelchair van/Ambulance? No Functional status prior to admission: Independent, Assistive Equipment (Pt is currently using his 's seated walker.) Home Environment: Others in the home: spouse, child(arthur), adult (Pt who is WC bound and adult son who is also physically unable to assist.). Current Living Arrangements: home/apartment/condo. Accessibility Concerns:Pt lives in a 2 story house with 2 NASEEM. Pt's bedroom is on the main level.. Current Functional Ability: Independent DME used at home: walker - rolling (Pt has been using his 's lift chair to keep his legs elevated.) DME Needed at Discharge: none Patient is insured through: Primary Insurance: MEDICARE Payor: MEDICARE / Plan: MEDICARE PART A & B / Product Type: *No Product type* / Secondary Insurance: [employer] [facility] [place] Prescription Coverage: No This plan was formulated with input from patient, (please identify family/friend involved if applicable) and team. All are in agreement with plan. I have verbally reviewed Medicare Discharge Rights with patient. Patient verbalizes understanding of right to appeal this discharge if feeling not medically ready. Offered a copy of this letter. Michelle Mack RN CM. BSN Ext [phone] * Plan of Care - Katie Hay RN - 03/10/2022 3:58 PM EDT Problem: Adult Inpatient Plan of Care Goal: Plan of Care Review Outcome: Ongoing (Interventions Implemented as Appropriate) Goal: Patient-Specific Goal (Individualized) Outcome: Ongoing (Interventions Implemented as Appropriate) Goal: Absence of Hospital-Acquired Illness or Injury Outcome: Ongoing (Interventions Implemented as Appropriate) Goal: Optimal Comfort and Wellbeing Outcome: Ongoing (Interventions Implemented as Appropriate) Goal: Readiness for Transition of Care Outcome: Ongoing (Interventions Implemented as Appropriate) Problem: Dysrhythmia Goal: Normalized Cardiac Rhythm Outcome: Ongoing (Interventions Implemented as Appropriate) Problem: Adjustment to Illness (Heart Failure) Goal: Optimal Coping Outcome: Ongoing (Interventions Implemented as Appropriate) Problem: Cardiac Output Decreased (Heart Failure) Goal: Optimal Cardiac Output Outcome: Ongoing (Interventions Implemented as Appropriate) Problem: Dysrhythmia (Heart Failure) Goal: Stable Heart Rate and Rhythm Outcome: Ongoing (Interventions Implemented as Appropriate) Problem: Fluid Imbalance (Heart Failure) Goal: Fluid Balance Outcome: Ongoing (Interventions Implemented as Appropriate) Problem: Functional Ability Impaired (Heart Failure) Goal: Optimal Functional Ability Outcome: Ongoing (Interventions Implemented as Appropriate) Problem: Oral Intake Inadequate (Heart Failure) Goal: Optimal Nutrition Intake Outcome: Ongoing (Interventions Implemented as Appropriate) Problem: Respiratory Compromise (Heart Failure) Goal: Effective Oxygenation and Ventilation Outcome: Ongoing (Interventions Implemented as Appropriate) Problem: Sleep Disordered Breathing (Heart Failure) Goal: Effective Breathing Pattern During Sleep Outcome: Ongoing (Interventions Implemented as Appropriate) * Care Management - Chandni Ta RN - 03/09/2022 5:02 PM EDT OFFICE OF CARE MANAGEMENT PROGRESS NOTE LOS: Hospital Day 9 days Chart reviewed, care reviewed with primary team and at interdisciplinary rounds. Patient continues to meet inpatient level of care related to: medication adjustment Functional status prior to admission: Independent, Assistive Equipment (Pt is currently using his 's seated walker.) Home Environment: Others in the home: spouse, child(arthur), adult (Pt who is WC bound and adult son who is also physically unable to assist.). Current Living Arrangements: home/apartment/condo. Accessibility Concerns: Pt lives in a 2 story house with 2 NASEEM. Pt's bedroom is on the main level.. Current Functional Ability: Independent DME used at home: walker - rolling (Pt has been using his 's lift chair to keep his legs elevated.) DME Needed at Discharge: None Patient is insured through: Primary Insurance: MEDICARE Payor: MEDICARE / Plan: MEDICARE PART A & B / Product Type: *No Product type* / Secondary Insurance: [employer] [place] Last Physical Therapy Recommendation: home with home health (would benefit from additional home supports for spouse (reports he has tried)) Last Occupational Therapy Recommendation: home Plan for discharge is: Home w/o Services Outpatient Agency/Support Group Needs: None Agency Referrals: N/A Transportation: family or friend will provide Barriers to discharge: None Plan going forward: SOCIAL WORK NURSE to assist patient and in identifying community resources to assist with home maintenance. Discharge home into the care of with outpatient follow up services. Care Management will continue to follow and assist with discharge planning and coordination of care as indicated. Anticipated Date of Discharge: 03/12/2022 * Consult Note - Gerda Acosta MD - 03/05/2022 1:11 PM EDT Cardiac Electrophysiology Consult Note Date of Consultation: 03/05/2022 Admit Date: 02/28/2022 Place of Service: Inpatient Unit Responsible Attending: Gerda Acosta MD Reason for Consult: We are seeing Kelly Shell at the request of Dr. Rios for the evaluation of atrial fibrillation. I have reviewed the available records, interviewed and examined the patient. Active Problem List: Patient Active Problem List Diagnosis ??? ','Atrial fibrillation ??? Thrombocytopenia ??? JEEVAN on CPAP ??? Acute systolic heart failure Overview Note: HF w/ reduced EF ??? Macrocytic anemia ??? Status post ablation of atrial flutter 01/02/2022 ??? Type 2 diabetes mellitus History of Present Illness: Kelly Shell is a 72 y.o. male with a history of paroxysmal atrial fibrillation/flutter, s/p typical counterclockwise atrial flutter ablation on 01/02/2022 and DCCV for coarse atrial fibrillation, anticoagulation on Xarelto (switched from Eliquis due to cost), JEEVAN not on CPAP, DM type II, GERD,BPH, who [place] [facility] in setting of AFib RVR and acute decompensated heart failure. Patient reported increased dyspnea over the last month. He is followed in electrophysiology by Dr. Curtis Arredondo and was last seen by him in [facility] on January 10 at which time he wasfound in atrial fibrillation. He was offered an elective admission in January 2022 for sotalol loading, however patient had an interruption in his oral anticoagulation necessitating cancellation of his admission and rescheduling of the sotalol drug load. He tells me that he had worsening shortness of breath at rest and dyspnea on exertion to the point he was unable to do even basic activities of daily living without significant limitations. He apparently had a recent mechanical fall without reported syncope, and fortunately didn't sustain significant injuries. He was seen by his PCP the day before admission and recommended he go directly to the ED. [place] [facility] [place] patient was found to be in acute decompensated heart failure for which she was diuresed. His transthoracic echocardiogram showed severely reduced global left ventricular systolic function EF23% with severe global hypokinesis, moderately decreased right ventricular systolic function, severely dilated left atrium, and at least moderate mitral and tricuspid regurgitation (previous echo in December 2021 showed LVEF 55-60%). He was started on IV amiodarone for about 24 hours before being transitioned to oral Amiodarone. He converted to sinus on 03/01/2022. He had received around 3 grams of Amiodarone up to 03/04 before it was stopped in the setting of progressively worsening thrombocytopeniafelt secondary to Amiodarone and torsemide. He was continued on metoprolol. He went back into atrial fibrillation on 03/05/2022. EP was consulted for further management recommendations. A transthoracic echo on 03/02/2022 in sinus showed mildly reduced left ventricular systolic function LVEF improved to 45% (previously 23% on 02/28/2022) and moderate to severe mitral regurgitation (slightly worse compared to previous). Review of Systems: Constitutional: - fatigue, - fever, - chills Respiratory: - shortness of breath, - cough, - apnea, - wheezing Cardiovascular: - chest pain, - palpitations, - unusual rates Gastrointestinal: - nausea, - vomiting, - abdominal pain, - diarrhea Neurological: - lightheadedness, - dizziness, - syncope, - weakness Psychiatric: - anxious PMH: Past Medical History: Diagnosis Date ??? Atrial flutter ??? GERD (gastroesophageal reflux disease) ??? JEEVAN (obstructive sleep apnea) ??? T2DM (type 2 diabetes mellitus) Pertinent Medications: Current Facility-Administered Medications Ordered in Epic Medication Dose Route Frequency Provider Last Rate Last Admin ??? [START ON 03/06/2022] metoprolol succinate XL (Toprol-XL) tablet 100 mg 100 mg Oral Daily Adeola Johnson MD ??? [START ON 03/06/2022] bumetanide (Bumex) tablet 2 mg 2 mg Oral Daily Terri Tomlinson MD ??? metFORMIN (Glucophage) tablet 1,000 mg 1,000 mg Oral BID WC Adeola Johnson MD 1,000 mg at 03/05/22 0816 ??? polyethylene glycoL (Miralax) packet 17 g 17 g Oral Daily Terri Tomlinson MD 17 g at 03/02/22 1715 ??? potassium chloride ER (K-Dur/Klor-Con) tablet 20 mEq 20 mEq Oral Q4H PRN Chris Monte Jr., MD 20 mEq at 03/02/22 1245 Or ??? potassium chloride ER (K-Dur/Klor-Con) tablet 40 mEq 40 mEq Oral Q4H PRN Chris Monte Jr., MD 40 mEq at 03/05/22 1133 ??? sodium chloride 0.9 % (flush) (BD PosiFlush Normal Saline 0.9) flush 5 mL 5 mL Intravenous BID Alfredito Israel MD 5 mL at 03/04/22 2100 ??? sodium chloride 0.9 % (flush) (BD PosiFlush Normal Saline 0.9) flush 5-20 mL 5-20 mL Intravenous Q1 Min PRN Alfredito Israel MD 5 mL at 03/05/22 0818 ??? lidocaine (Xylocaine) 1% (10 mg/mL) injection 3 mg 0.3 mL Subcutaneous Once PRN Alfredito Israel MD ??? rivaroxaban (Xarelto) tablet 20 mg 20 mg Oral QPM Alfredito Israel MD 20 mg at 03/04/22 1700 ??? glucose (Glutose) 40% oral geL 15-30 g of glucose Buccal Q30 Min PRN Chris Monte Jr., MD Or ??? dextrose 10% infusion 250 mL Intravenous Q30 Min PRN Chris Monte Jr., MD Or ??? glucagon (Glucagen) (1 mg/mL) injection solution 1 mg 1 mg Intramuscular Q30 Min PRN Chris Monte Jr., MD ??? insulin lispro (HumaLOG;Admelog) (100 unit/mL) subcutaneous injection vial 1-4 Units 1-4 Units Subcutaneous Q4H [facility] Chris Monte Jr., MD 1 Units at 03/05/22 1135 ??? insulin lispro (HumaLOG;Admelog) (100 unit/mL) subcutaneous injection vial 0-8 Units 0-8 Units Subcutaneous TID Chris Monte Jr., MD 2 Units at 03/05/22 1244 No current [facility]-ordered outpatient medications on file. Family History: No family history on file. [...] on file Housing Stability: Not on file Physical Exam: Vital signs: Vitals: 03/04/22 2348 03/05/22 0436 03/05/22 0755 03/05/22 1129 BP: 105/71 117/73 110/75 BP Location (NBP): Right arm Right arm Right arm Patient Position: Lying Sitting Sitting Pulse: (!) 106 (!) 107 (!) 115 Resp: 18 28 16 Temp: 36.8 ??C (98.2 ??F) 36.6 ??C (97.9 ??F) 36.6 ??C (97.9 ??F) TempSrc: Oral Oral Oral SpO2: 100% 100% 96% Weight: 102.5 kg (226 lb) Height: General- No acute distress, laying comfortably in bed HEENT- Head atraumatic, normocephalic Skin- Warm and dry Neck- No JVD noted Cardiovascular- S1/S2 irregular rate and rhythm. No murmur, rub or gallop Lungs- Clear to auscultation bilaterally Extremities- Pulses equal bilaterally. No edema noted Neuro- A&Ox3 Labs: Lab Results Component Value Date WBC 8.9 03/05/2022 HGB 15.0 03/05/2022 HCT 44.5 03/05/2022 PLATELET 49 (L) 03/05/2022 Recent Labs 03/03/22 1236 INR 2.0 Lab Results Component Value Date NA 136 03/05/2022 K 3.8 03/05/2022 CL 95 (L) 03/05/2022 BUN 24 (H) 03/05/2022 CREATININE 0.90 03/05/2022 MAGNESIUM 0.76 03/05/2022 Assessment: 1. Paroxysmal atrial fibrillation with RVR 2. Anticoagulation on Xarelto 3. Hx typical counterclockwise atrial flutter ablation in December 2021 4. JEEVAN not on CPAP 5. DM type II 6. Dilated cardiomyopathy, presumably tachy-induced, LVEF 35% on admission, now improved to 45% with rate/rhythm control 7. Progressive thrombocytopenia, likely medication-induced Recommendations: - In the setting of thrombocytopenia, agree with discontinuation of Amiodarone. Because patient received several grams of Amiodarone to date and long half-life of Amiodarone, he should have adequate Amiodarone washout (at least several weeks to month) prior to consideration of different antiarrhythmic. Would also recommend seeing resolution of thrombocytopenia prior to starting a different antiarrhythmic in the setting of prohibitive risk of bleeding and risk of thromboembolic CVA with interruption of oral anticoagulation especially in proximity to pharmacologic or electrical cardioversion. - Defer to hematology regarding safety of ongoing anticoagulation; for now it seems reasonable, butonly just. - For above reasons, recommend rate-control only. Uptitrate metoprolol as tolerated. Would use Diltiazem sparingly, if at all, in setting of recent cardiomyopathy that has somewhat recovered. Consider adding digoxin for rate control if additional agent necessary. - Future antiarrhythmic drug loading will be placed on temporary hiatus until patient can safely take oral anticoagulation for 4 weeks without interruption or complications or hematologic concerns. Consult service will continue to follow patient. ALISON Ledezma 03/05/2022 1:11 PM Attending: Gerda Acosta MD Service Pager: [phone] Staff addendum: I have seen and evaluated the patient, and reviewed the available medical records. I agree with the findings, physical examination, and assessment of Carlos Eduardo Quan as detailed above. Kelly Shell is a 72 y.o. man with history of both AFl and AF. He has had recent ablation of typical flutter but now presents with decompensated HF in setting of rapidly conducted AF. Unfortunately, he has developed thrombocytopenia in setting of treatment for heart failure (torsemide) and AF (amiodarone). The offending agent (if any) remains unclear but both amio and torsemide have bene discontinued for now. Mr. Shell underwent SYDNEY/DCCV on 03/02 but reverted back to AF. Amio failed to convert him to SR. It is uncertain whether amiodarone would have been successful if combined with another DCCV after treatment of HF. This could be re-attempted if 1) thrombocytopenia resolves 2) amiodarone is determined not to be the culprit and 3) anticoagulation continues to be safe vis a vis thrombocytopenia/bleeding risks. In the meantime, no other AADs are possible due to significant risks of combining AADs. If amiodarone cannot be restarted, he could be considered for dofetilide and/or AF ablation in the coming months assuming anticoagulation can be safely continued. His variable LVEF makes sotalol less attractive. Thus, for now, recommend rate control only with combination of BB > digoxin > CCB as needed. We will arrange for patient to have outpatient follow up with Dr. Arredondo. Otherwise, please call EPback with any additional questions. Gerda Acosta MD 03/05/2022 4:46 PM * Plan of Care - Luz Rodriguez RN - 03/03/2022 6:36 PM EDT OUTCOME EVALUATION NOTE: OUTCOME SUMMARY: A+Ox4. VSS. Denies CP/SOB/weakness/dizziness/pain. Continued dyspnea on exertion. Continued K protocol, has had 2 rechecks above 4.0. PO Torsemide given. Patient had 5 unmeasured occurrences, educated on need to continue to use urinal. PLAN MOVING FORWARD: Diurese Appropriate discharge planning INDIVIDUALIZED FALL PREVENTION INTERVENTIONS: Patient-specific fall risk factors per assessment: [current deficits]: tele wires, walker, unfamiliar environment, neuropathy, dyspnea on exertion Assistance [level of assistance required for transfers and ambulation]: SBA w/ walker Supervision [direct monitoring required during toileting and ADLs]: eyes on Surveillance [continuous indirect monitoring]: telemetry, purposeful hourly rounding Patient-specific fall prevention interventions for sensory deficits provided, if applicable: call montero in reach, non-skid socks when OOB, lighting adjusted for specific tasks, bed alarm on CPG GOAL OUTCOME EVALUATION: ongoing * Consult Note - Jake Gonzales MD - 03/03/2022 3:12 PM EDT Images from the original note were not included. Inpatient Hematology Consult Reason for consult: Thrombocytopenia Service requesting consult: Cardiology ASSESSMENT: 72M with PMH atrial flutter s/p ablation and DCCV in 12/2021 on Xarelto, history of DM, GERD, JEEVAN onCPAP who presented for decompensated heart failure due suspected due to tachyarthymia. Patient was diuresed and underwent SYDNEY cardioversion on 02/28/22. Patient was diuresed and underwent SYDNEY cardioversion on 02/28/22. Hematology was consulted for thrombocytopenia. The patient presents with isolated thrombocytopenia in the setting of otherwise normal CBC. 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 The patient was started on torsemide which can cause medication induced ITP. He is also on amiodarone and metoprolol which may also cause thrombocytopenia as well. 4Ts score showed low probability of HIT. In consideration of other causes, there does not seem to be evidence of Infection/sepsis. No history to suggest cirrhosis. Will evaluate if there are any destructive/consumptive processes (DIC) but suspect less likely at this time. Patients with ITP have an increased risk for mucocutanous bleeding or petechiae. Drug induced ITP will improve upon cessation of the implicated medications (torsemidine, amiodarone, metoprolol) however in this case these medications are essential to this patient's cardiac co morbidities. An elevated IPF would point to the direction of ITP in this context and suggest patient may benefit from steroids. Recommendations: -Check peripheral blood smear, IPF -Check PT, PTT, INR, LDH, Heptoglobin, fibrinogen to rule out hemolysis -Continue trending daily CBCs to monitor for platelet naidir -Consider switching diuretics to a different drug class -Pending on the work up above, patient may benefit from corticosteroids HISTORY OF PRESENT ILLNESS: In brief, the patient is a 72M with PMH atrial flutter s/p ablation and DCCV in 12/2021 on Xarelto, history of DM, GERD, JEEVAN on CPAP who presented for decompensated heart failure due suspected due to tachyarthymia. Patient was diuresed and underwent SYDNEY cardioversion on 02/28/22. Hematology was consulted for thrombocytopenia. At baseline, patient's platelet count was 179 in 12/2021. On admission 02/28, his platelets were 108 and steadily downtrended daily to 69 today 7/2. The rest of his CBC was normal with hemoglobin 13.7 and WBC 8.9. During this time, he was started on new medications including torsemide, amiodarone, and metoprolol. He has been on xarelto for anticoagulation however does not note any major bleeding although he endorsed a fall about 2 weeks prior to admission with some ecchymosis. He was not exposed to heparin. No history of liver disease. No clinical signs of blood clots. No new bleeding. ROS A 10 point ROS was obtained and negative aside from what is described above/in HPI. PMHX: Patient Active Problem List Diagnosis ??? Atrial fibrillation ??? JEEVAN on CPAP ??? Acute systolic heart failure HF w/ reduced EF ??? Macrocytic anemia ??? Status post ablation of atrial flutter 01/02/2022 ??? Type 2 diabetes mellitus PSHX: No past surgical history on file. MEDS: Scheduled Meds: ??? metFORMIN 1,000 mg Oral BID WC ??? AMIOdarone 400 mg Oral BID Followed by ??? [START ON 03/09/2022] AMIOdarone 200 mg Oral BID Followed by ??? [START ON 03/16/2022] AMIOdarone 200 mg Oral Daily ??? metoprolol succinate XL 50 mg Oral Daily ??? polyethylene glycoL (MIRALAX) oral powder 17 g Oral Daily ??? sodium chloride 0.9 % (flush) 5 mL Intravenous BID ??? rivaroxaban 20 mg Oral QPM ??? insulin lispro 1-4 Units Subcutaneous Q4H [facility] ??? insulin lispro 0-8 Units Subcutaneous TID WC Continuous Infusions: PRN Meds:.potassium chloride ER OR potassium chloride ER, sodium chloride 0.9 % (flush), lidocaine, glucose 40% oral geL OR dextrose 10% OR glucagon Allergies: No Known Allergies FAMILY HISTORY: No family history on file. SOCIAL HISTORY Social History Socioeconomic History ??? Marital status: [...] on file Housing Stability: Not on file PHYSICAL EXAM Vitals Flowsheet Row ED to Hosp-Admission (Current) from 02/28/2022 in Cardiac [facility] Unit [facility] Weight 110 kg (242 lb 8.1 oz) Height 170.2 cm (5' 7) BSA (Calculated - sq m) 2.35 sq meters BMI (Calculated) 40.39 Temp 36.5 ??C (97.7 ??F) Temp src Oral Heart Rate 70 Heart Rate from SpO2 70 bpm Heart Rate Source Monitor Resp 18 BP 118/77 Patient Position Sitting SpO2 95 % Body surface area is 2.28 meters squared. GEN: Resting comfortably, no acute distress HEENT: No scleral icterus.No oral bleeding RESP: CTAB CV: RRR Normal S1, S2 ABD: Soft, NT/ND. No palpable masses EXT: 1+ pitting edema NEURO: Alert and appropriate, with clear, fluent speech. Cognition is intact. PSYCH: Normal mood and affect SKIN: No petechiae present LABORATORY STUDIES Recent Results (from the past 72 hour(s)) Echocardiogram Transthoracic Result Value Ref Range EF 23 BLOOD GAS 2 VENOUS Result Value Ref Range pH Marvin 7.39 7.32 - 7.42 pCO2 Marvin 41 41 - 51 mmHg pO2 Marvin 22 (L) 25 - 40 mmHg HCO3 Marvin 24.4 mmol/L BE Marvin -0.5 mmol/L Hgb Blood Gas 13.7 13.7 - 16.5 g/dL O2HB Marvin 31.7 % COHB Marvin 1.8 % METHB Marvin 0.8 <=1.5 % Na Whole Blood 140 135 - 145 mmol/L K Whole Blood 3.9 3.5 - 5.0 mmol/L ICa Whole Blood 1.16 1.15 - 1.33 mmol/L CL Whole Blood 102 98 - 107 mmol/L Gluc Whole Bld 111 65 - 199 mg/dL Lactate WB 2.4 (H) 0.5 - 2.2 mmol/L BGas Source Venous POCT Glucose Result Value Ref Range POC Glucose 154 65 - 199 mg/dL Lipid Panel (Reflex Direct LDL) Result Value Ref Range Chol, Total 96 mg/dL Triglycerides 67 mg/dL HDL 26 mg/dL LDL Cholesterol 57 mg/dL Chol/HDL Ratio 3.7 ratio Lipid Interpretation See Note Basic Metabolic Panel (non-fasting) Result Value Ref Range Glucose Lvl 166 65 - 199 mg/dL BUN 26 (H) 10 - 20 mg/dL Creatinine 0.87 0.80 - 1.50 mg/dL Sodium 144 135 - 145 mmol/L Potassium 3.9 3.5 - 5.0 mmol/L Chloride 105 98 - 107 mmol/L CO2 24 22 - 31 mmol/L Anion Gap 15 5 - 15 mmol/L Calcium 8.6 8.5 - 10.5 mg/dL Estimated GFR 92 >=60 mL/min/1.73 m?? Lactate, whole blood, [place] [place] [place] Result Value Ref Range Lactate WB 2.0 0.5 - 2.2 mmol/L Magnesium Result Value Ref Range Magnesium 0.86 0.69 - 1.07 mmol/L POCT Glucose Result Value Ref Range POC Glucose 167 65 - 199 mg/dL Basic Metabolic Panel (non-fasting) Result Value Ref Range Glucose Lvl 131 65 - 199 mg/dL BUN 24 (H) 10 - 20 mg/dL Creatinine 0.96 0.80 - 1.50 mg/dL Sodium 142 135 - 145 mmol/L Potassium 3.6 3.5 - 5.0 mmol/L Chloride 103 98 - 107 mmol/L CO2 27 22 - 31 mmol/L Anion Gap 12 5 - 15 mmol/L Calcium 8.6 8.5 - 10.5 mg/dL Estimated GFR 84 >=60 mL/min/1.73 m?? Magnesium Result Value Ref Range Magnesium 0.88 0.69 - 1.07 mmol/L TSH Result Value Ref Range TSH 3.49 0.27 - 4.20 mcIU/mL Hemoglobin A1c Result Value Ref Range Hemoglobin A1C 7.5 (H) 4.3 - 5.6 % Est Avg Gluc See note mg/dL Hemogram Result Value Ref Range WBC 9.9 (H) 4.0 - 9.5 x10(3)/mcL RBC 4.14 (L) 4.58 - 5.54 x10(6)/mcL Hemoglobin 12.9 (L) 13.7 - 16.5 g/dL Hematocrit 39.5 (L) 40.5 - 48.5 % MCV 95.4 (H) 82.9 - 93.1 fL MCH 31.2 27.5 - 32.1 pg MCHC 32.7 32.0 - 35.7 g/dL Platelets 90 (L) 145 - 357 x10(3)/mcL RDWSD 48.5 (H) 36.0 - 45.0 fL RDWCV 13.9 (H) 11.4 - 13.8 % MPV 12.7 7.6 - 12.9 fL nRBC % Auto 0.0 % nRBC Abs Auto 0.000 0.000 - 0.000 x10(3)/mcL Differential, Automated Result Value Ref Range Neutrophils % 67.0 % Neutr Abs (ANC) 6.62 (H) 1.70 - 6.10 x10(3)/mcL Lymphocytes % 16.6 % Lymphocytes Abs 1.6 0.9 - 3.2 x10(3)/mcL Monocytes % 12.6 % Monocyte Abs 1.2 (H) 0.3 - 0.9 x10(3)/mcL Eosinophils % 2.8 % Eosinophils Abs 0.3 0.0 - 0.4 x10(3)/mcL Basophils % 0.6 % Basophils Abs 0.1 0.0 - 0.1 x10(3)/mcL Immature Gran % 0.40 % Nini Gran Abs 0.04 0.00 - 0.04 x10(3)/mcL POCT Glucose Result Value Ref Range POC Glucose 121 65 - 199 mg/dL POCT Glucose Result Value Ref Range POC Glucose 102 65 - 199 mg/dL POCT Glucose Result Value Ref Range POC Glucose 108 65 - 199 mg/dL EKG 12 Lead Result Value Ref Range Ventricular rate 70 BPM Atrial Rate 70 BPM P-R Interval 172 ms QRS Duration 86 ms Q-T Interval 428 ms QTC Calculated (Bezet) 462 ms Calculated P [place] 145 degrees Calculated R [place] -21 degrees Calculated T [place] -25 degrees INTERPRETATION Most likely normal sinus rhythm ( poor tracing in lead II) Low voltage QRS possible Inferior infarct (cited on or before 10-JAN-2022) Abnormal ECG When compared with ECG of 28-FEB-2022 10:50, Vent. rate has decreased BY 83 BPM Nonspecific T wave abnormality now evident in Anterior leads Confirmed by Tanya Rae ([id number]) on 03/02/2022 7:32:21 PM Electrolytes panel Result Value Ref Range Sodium 140 135 - 145 mmol/L Potassium 4.2 3.5 - 5.0 mmol/L Chloride 102 98 - 107 mmol/L CO2 30 22 - 31 mmol/L Anion Gap 8 5 - 15 mmol/L POCT Glucose Result Value Ref Range POC Glucose 190 65 - 199 mg/dL POCT Glucose Result Value Ref Range POC Glucose 286 (H) 65 - 199 mg/dL POCT Glucose Result Value Ref Range POC Glucose 187 65 - 199 mg/dL POCT Glucose Result Value Ref Range POC Glucose 188 65 - 199 mg/dL Basic Metabolic Panel (non-fasting) Result Value Ref Range Glucose Lvl 168 65 - 199 mg/dL BUN 22 (H) 10 - 20 mg/dL Creatinine 0.87 0.80 - 1.50 mg/dL Sodium 138 135 - 145 mmol/L Potassium 3.8 3.5 - 5.0 mmol/L Chloride 100 98 - 107 mmol/L CO2 28 22 - 31 mmol/L Anion Gap 10 5 - 15 mmol/L Calcium 8.5 8.5 - 10.5 mg/dL Estimated GFR 92 >=60 mL/min/1.73 m?? Magnesium Result Value Ref Range Magnesium 0.94 0.69 - 1.07 mmol/L TSH Result Value Ref Range TSH 2.59 0.27 - 4.20 mcIU/mL Hemogram Result Value Ref Range WBC 9.4 4.0 - 9.5 x10(3)/mcL RBC 4.25 (L) 4.58 - 5.54 x10(6)/mcL Hemoglobin 12.9 (L) 13.7 - 16.5 g/dL Hematocrit 40.2 (L) 40.5 - 48.5 % MCV 94.6 (H) 82.9 - 93.1 fL MCH 30.4 27.5 - 32.1 pg MCHC 32.1 32.0 - 35.7 g/dL Platelets 77 (L) 145 - 357 x10(3)/mcL RDWSD 48.5 (H) 36.0 - 45.0 fL RDWCV 14.1 (H) 11.4 - 13.8 % MPV 12.2 7.6 - 12.9 fL nRBC % Auto 0.0 % nRBC Abs Auto 0.000 0.000 - 0.000 x10(3)/mcL Differential, Automated Result Value Ref Range Neutrophils % 68.7 % Neutr Abs (ANC) 6.46 (H) 1.70 - 6.10 x10(3)/mcL Lymphocytes % 13.7 % Lymphocytes Abs 1.3 0.9 - 3.2 x10(3)/mcL Monocytes % 14.3 % Monocyte Abs 1.4 (H) 0.3 - 0.9 x10(3)/mcL Eosinophils % 2.2 % Eosinophils Abs 0.2 0.0 - 0.4 x10(3)/mcL Basophils % 0.7 % Basophils Abs 0.1 0.0 - 0.1 x10(3)/mcL Immature Gran % 0.40 % Nini Gran Abs 0.04 0.00 - 0.04 x10(3)/mcL POCT Glucose Result Value Ref Range POC Glucose 155 65 - 199 mg/dL POCT Glucose Result Value Ref Range POC Glucose 157 65 - 199 mg/dL Potassium Result Value Ref Range Potassium 3.9 3.5 - 5.0 mmol/L EKG 12 Lead Result Value Ref Range Ventricular rate 64 BPM Atrial Rate 64 BPM P-R Interval 158 ms QRS Duration 88 ms Q-T Interval 498 ms QTC Calculated (Bezet) 513 ms Calculated P [place] 57 degrees Calculated R [place] -6 degrees Calculated T [place] 9 degrees INTERPRETATION Normal sinus rhythm with sinus arrhythmia Cannot rule out Inferior infarct (cited on or before 10-JAN-2022) Abnormal ECG When compared with ECG of 01-MAR-2022 11:21, Sinus rhythm has replaced Ectopic atrial rhythm Echocardiogram Transthoracic Result Value Ref Range EF 45 POCT Glucose Result Value Ref Range POC Glucose 285 (H) 65 - 199 mg/dL Electrolytes panel Result Value Ref Range Sodium 140 135 - 145 mmol/L Potassium 3.7 3.5 - 5.0 mmol/L Chloride 101 98 - 107 mmol/L CO2 28 22 - 31 mmol/L Anion Gap 11 5 - 15 mmol/L POCT Glucose Result Value Ref Range POC Glucose 168 65 - 199 mg/dL POCT Glucose Result Value Ref Range POC Glucose 151 65 - 199 mg/dL Potassium Result Value Ref Range Potassium 4.1 3.5 - 5.0 mmol/L POCT Glucose Result Value Ref Range POC Glucose 132 65 - 199 mg/dL POCT Glucose Result Value Ref Range POC Glucose 120 65 - 199 mg/dL POCT Glucose Result Value Ref Range POC Glucose 131 65 - 199 mg/dL Basic Metabolic Panel (non-fasting) Result Value Ref Range Glucose Lvl 138 65 - 199 mg/dL BUN 22 (H) 10 - 20 mg/dL Creatinine 0.80 0.80 - 1.50 mg/dL Sodium 137 135 - 145 mmol/L Potassium 3.7 3.5 - 5.0 mmol/L Chloride 100 98 - 107 mmol/L CO2 25 22 - 31 mmol/L Anion Gap 12 5 - 15 mmol/L Calcium 8.8 8.5 - 10.5 mg/dL Estimated GFR 94 >=60 mL/min/1.73 m?? Magnesium Result Value Ref Range Magnesium 0.82 0.69 - 1.07 mmol/L Hemogram Result Value Ref Range WBC 9.0 4.0 - 9.5 x10(3)/mcL RBC 4.24 (L) 4.58 - 5.54 x10(6)/mcL Hemoglobin 13.0 (L) 13.7 - 16.5 g/dL Hematocrit 39.9 (L) 40.5 - 48.5 % MCV 94.1 (H) 82.9 - 93.1 fL MCH 30.7 27.5 - 32.1 pg MCHC 32.6 32.0 - 35.7 g/dL Platelets 68 (L) 145 - 357 x10(3)/mcL RDWSD 47.4 (H) 36.0 - 45.0 fL RDWCV 13.9 (H) 11.4 - 13.8 % MPV 12.4 7.6 - 12.9 fL nRBC % Auto 0.0 % nRBC Abs Auto 0.000 0.000 - 0.000 x10(3)/mcL Differential, Automated Result Value Ref Range Neutrophils % 64.6 % Neutr Abs (ANC) 5.85 1.70 - 6.10 x10(3)/mcL Lymphocytes % 16.5 % Lymphocytes Abs 1.5 0.9 - 3.2 x10(3)/mcL Monocytes % 14.8 % Monocyte Abs 1.3 (H) 0.3 - 0.9 x10(3)/mcL Eosinophils % 2.8 % Eosinophils Abs 0.2 0.0 - 0.4 x10(3)/mcL Basophils % 0.9 % Basophils Abs 0.1 0.0 - 0.1 x10(3)/mcL Immature Gran % 0.40 % Nini Gran Abs 0.04 0.00 - 0.04 x10(3)/mcL POCT Glucose Result Value Ref Range POC Glucose 223 (H) 65 - 199 mg/dL Potassium Result Value Ref Range Potassium 4.3 3.5 - 5.0 mmol/L Electrolytes panel Result Value Ref Range Sodium 135 135 - 145 mmol/L Potassium 4.3 3.5 - 5.0 mmol/L Chloride 101 98 - 107 mmol/L CO2 26 22 - 31 mmol/L Anion Gap 8 5 - 15 mmol/L pro-Brain Natriuretic Peptide Result Value Ref Range ProBNP 680 (H) <=124 pg/mL POCT Glucose Result Value Ref Range POC Glucose 184 65 - 199 mg/dL Peripheral Smear Review Result Value Ref Range Periph Smear Rev See Comment Prothrombin Time Result Value Ref Range PT 22.5 (H) 9.4 - 12.5 sec INR 2.0 APTT Result Value Ref Range PTT 46 (H) 25 - 37 sec Hemogram Result Value Ref Range WBC 8.9 4.0 - 9.5 x10(3)/mcL RBC 4.42 (L) 4.58 - 5.54 x10(6)/mcL Hemoglobin 13.7 13.7 - 16.5 g/dL Hematocrit 42.3 40.5 - 48.5 % MCV 95.7 (H) 82.9 - 93.1 fL MCH 31.0 27.5 - 32.1 pg MCHC 32.4 32.0 - 35.7 g/dL Platelets 69 (L) 145 - 357 x10(3)/mcL RDWSD 49.0 (H) 36.0 - 45.0 fL RDWCV 13.9 (H) 11.4 - 13.8 % MPV 12.4 7.6 - 12.9 fL nRBC % Auto 0.0 % nRBC Abs Auto 0.000 0.000 - 0.000 x10(3)/mcL Differential, Automated Result Value Ref Range Neutrophils % 66.7 % Neutr Abs (ANC) 5.93 1.70 - 6.10 x10(3)/mcL Lymphocytes % 16.5 % Lymphocytes Abs 1.5 0.9 - 3.2 x10(3)/mcL Monocytes % 13.0 % Monocyte Abs 1.2 (H) 0.3 - 0.9 x10(3)/mcL Eosinophils % 2.6 % Eosinophils Abs 0.2 0.0 - 0.4 x10(3)/mcL Basophils % 0.8 % Basophils Abs 0.1 0.0 - 0.1 x10(3)/mcL Immature Gran % 0.40 % Nini Gran Abs 0.04 0.00 - 0.04 x10(3)/mcL Scan, Peripheral Blood Result Value Ref Range Plat Estimate Decreased RBC Morphology Abnormal Momo Cells 1-5 /HPF RADIOLOGY STUDIES REVIEWED: CXR 02/28/22 IMPRESSION Pulmonary vascular congestion with edema and small pleural effusions. Patient was seen and discussed with Hematology attending Dr. Ardon. Jake Gonzales MD Hematology/Oncology Fellow Pager # [phone] 03/03/22, 3:14 PM Hematology/Oncology Clinic [facility] [address] Associated attestation - Ulices Ardon MD - 03/13/2022 11:58 AM EDT BMT/Hematology Inpatient Staff Shared Addendum I have reviewed the above fellow consult note by Dr Gonzales and have participated in the direct care of this patient. I have discussed the case in detail with the team, reviewed all data and was directly involved in formulation of the patients clinical plan. In brief 72M with PMH atrial flutter s/p ablation and DCCV in 12/2021 on Xarelto, history of DM, GERD, JEEVAN on CPAP who presented for decompensated heart failure due suspected due to tachyarthymia. Patient was diuresed and underwent SYDNEY cardioversion on 02/28/22. Patient was diuresed and underwent TEEcardioversion on 02/28/22. Hematology was consulted for thrombocytopenia. Differential includes ITP vs drug induced thrombocytopenia. I would recommend switching the torsemide and amiodarone to alternative agents. If platelets continue to downtrend we will consider a steroid course as it should help with both ofthe above differentials. IVIG is also a consideration if the counts continue to fall. Ulices Ardon MD Staff Physician [facility] * Care Management - Maral Young RN - 03/03/2022 11:24 AM EDT OFFICE OF CARE MANAGEMENT PROGRESS NOTE LOS: Hospital Day 3 days Chart reviewed, care reviewed with primary team and at interdisciplinary rounds. Contacted by PT toset up home PT. CM introduced self and explained role to patient. Discussed recommendations from PT and he said that he did not think that he needed anyone to come to his house. He said that if he was having troubleat home, that he would contact his PCP and go to the local outpatient therapy at [facility]. PT aware. Functional status prior to admission: Independent, Assistive Equipment (Pt is currently using his 's seated walker.) Home Environment: Others in the home: spouse, child(arthur), adult (Pt who is WC bound and adult son who is also physically unable to assist.). Current Living Arrangements: home/apartment/condo. Accessibility Concerns: Pt lives in a 2 story house with 2 [address]ASE[address]. Pt's bedroom is on the main level.. Current Functional Ability: Independent DME used at home: walker - rolling (Pt has been using his 's lift chair to keep his legs elevated.) DME Needed at Discharge: Patient reports that he has walker at home. Patient is insured through: Primary Insurance: MEDICARE Payor: MEDICARE / Plan: MEDICARE PART A & B / Product Type: *No Product type* / Secondary Insurance: [facility] Last Physical Therapy Recommendation: home with home health (would benefit from additional home supports for spouse (reports he has tried)) with None Last Occupational Therapy Recommendation: with Plan for discharge is: Home w/o Services Outpatient Agency/Support Group Needs: None Transportation: family or friend will provide Barriers to discharge: None Plan going forward: Care Management will continue to follow and assist with discharge planning and coordination of care as indicated. Anticipated Date of Discharge: 03/03/2022 Covering pager #[phone] for today. * Care Management Discharge - Chandni Ta RN - 03/02/2022 1:20 PM EDT CARE MANAGEMENT FINAL DISCHARGE NOTE Chart reviewed, care reviewed with primary team and at interdisciplinary rounds. Patient is medically ready for discharge to home. (Addendum: Requires IV diuresis today. Planning for discharge home tomorrow Saturday 03/03.) Needs for Transition of Care: Plan for discharge is: Home w/o Services Outpatient Agency/Support Group Needs: None Agency Referrals & Follow-up Care: N/A Transportation: family or friend will provide Functional status prior to admission: Independent, Assistive Equipment (Pt is currently using his 's seated walker.) Home Environment: Others in the home: spouse, child(arthur), adult (Pt who is WC bound and adult son who is also physically unable to assist.). Current Living Arrangements: home/apartment/condo. Accessibility Concerns:Pt lives in a 2 story house with 2 NASEEM. Pt's bedroom is on the main level.. Current Functional Ability: Independent DME used at home: walker - rolling (Pt has been using his 's lift chair to keep his legs elevated.) DME Needed at Discharge: None Patient is insured through: Primary Insurance: MEDICARE Payor: MEDICARE / Plan: MEDICARE PART A & B / Product Type: *No Product type* / Secondary Insurance: [facility] Prescription Coverage: No This plan was formulated with input from patient and team. All are in agreement with plan. * Initial Assessments - Katie Pollack RN - 03/01/2022 11:37 AM EDTSumjamesony: BRENDEN Initial Assessement Office of Care Management Initial Assessment Katie Pollack RN reviewed record and discussed patient with Care Team. Source of Information: Team, bedside nurse, medical record, and Patient, Spouse, Child (Pt's and step daughter were at the bedside.) Introduced self/reviewed role; services accepted. Reason for Hospitalization: I went to my PCP a few days ago and she said Im in heart failure and said I should go to the ED today Covid Vaccination Status: 1st, 2nd & booster (Moderna x 4.) Last COVID test: Past medical History: No past medical history on file. Hospitalizations Within the Past 30 Days: no previous admission in last 30 days Current Decision-Making Capacity: Self Advance Care Planning: Attempt Cardiopulmonary Resuscitation - Inpatient <no information> -Advanced Directive: Yes, not on file Who is your DPOA-HC?: Spouse (Kindra Shell, ) Current Coping/Education/Information Needs: Pt is understanding about the plan of care. Current Functional Ability: unable to assess Functional Status Prior to Admission: Independent, Assistive Equipment (Pt is currently using his 's seated walker.) Prior ADLs & IADLs: Independent with all ADLs & IADLs Home Environment: Others in the home: spouse, child(arthur), adult (Pt who is WC bound and adult son who is also physically unable to assist.). Current Living Arrangements: home/apartment/condo. Accessibility Concerns:Pt lives in a 2 story house with 2 NASEEM. Pt's bedroom is on the main level.. Resource / Environmental Concerns: Resource/Environmental Concerns: none Current DME: walker - rolling (Pt has been using his 's lift chair to keep his legs elevated.) Home Address confirmed as: [address] [facility] [address] Social & Family Supports: All names listed below confirmed with patient as current and correct Extended Emergency Contact Information Primary Emergency Contact: KINDRA SHELL Da Address: [address] [place] [address] [facility] [place] Relation: Spouse Secondary Emergency Contact: [place] [address] [facility] [place] Relation: Stepchild Current Care Provided by: self Provides Primary Care For: spouse Caregiver if needed: unable to assess Quality of Family relationships: supportive Community Resources being provided currently: none Behavioral Health History: Pt denies. Substance Use/Abuse listed: Social History Tobacco Use Smoking Status Never Smoker Smokeless Tobacco Never Used In the past year have you used an illegal drug or used a prescription medication for non-medical reasons?: No 0 No problems reported 1-2 Low level 3-5 Moderate level 6-8 Substantial level 9- 10 Severe level In the past year have you had 5 or more drinks a day containing alcohol?: No 0 to 7 points: Low risk 8 to 15 points: Medium risk 16 to 19 points: High risk 20 to 40 points: Addiction likely Other Pertinent/Service Specific Information: none Health/Prescription Coverage: Primary Insurance: MEDICARE Payor: MEDICARE / Plan: MEDICARE PART A & B / Product Type: *No Product type* / Secondary Insurance: [facility] Prescription Coverage: No Preferred Pharmacy: [address] [address] [place] Status: Patient is a : No Primary Care Provider: Domenica Atkins, FRONT END MANAGER [phone] Patient/Caregiver Goals of Treatment: Pt anticipates on returning home upon discharge. Pt may want HH services upon discharge. Potential Needs for Transition of Care: home health care Agency Referrals: Not Applicable Transportation: no concerns Transportation Anticipated: family or friend will provide (Pt's step daughterOrly, will transport home.) Concerns to be Addressed: discharge planning Assessment: Patient is admitted to Cardiology service for Congested Heart Failure. 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 Pt lives withhis and his son who both have limited physical capabilities. Pt normally drives but has not d/t medications that cause him to sleep. Pt would be interested in services if recommended. Explained CM role and following up during his stay and making referrals if appropriate. A member of the Care Management team will continue to monitor progress, follow for continuity of care and assist with transition of care planning. Katie Pollack, RN, BSN policy checker Office of Care Management Pager: [phone] * Brief Op Note - Lali Sam MD - 03/01/2022 11:17 AM EDT Brief Operative Note Patient Name: Kelly Shell : [id number] MR#: [id number] Case Date: 03/01/2022 Surgeon: MD Rene. MD Cecy Preoperative diagnosis: Afib Postoperative diagnosis: paroxysmal Afib to sinus Anesthesia: Moderate, performed by Dr. Silva Findings: SYDNEY Mod reduced LV function Mild to mod reduced RV function Mild MR Mild TR Left atrial appendage with no clot DCCV - performed after ACE clearance Synchronized DCCV 120 J done into sinus rhythm Complications: none Estimated Blood Loss: none Specimens removed during surgery: None Fluids: Intraprocedure Crystalloid Total None Disposition: aroused from sedation, and taken to the recovery room in a stable condition Condition: doing well without problems (Please see the Surgical Encounter Summary for any Implant and Specimen details pertinent to this patient.) Surgical Infection Prevention Bundle Used? N/A Lali Sam MD [facility] [place] Crew Leader/Control Room Operator, PGY-4 Pager #[phone] Can Epic message me 7AM-4PM on week for non-urgent matters * Plan of Care - Lali Sam MD - 03/01/2022 9:41 AM EDT Images from the original note were not included. Pre-Transesophageal Echo Assessment Please see Dr. Israel's note dated 02/28/2022 for full details regarding reason for referral for SYDNEY. Briefly, this is a 72 y.o. YO male with history notable for pAfib, new CHF referred for SYDNEY for LAAclearance and DCCV. The patient denies a history of difficulty swallowing or esophageal pathology. The patient denies any loose teeth. Exam reveals clear lungs, flat JVP at 90 degrees, regular rhythm without gallop or murmur, 2+ radial pulses bilaterally, and no LE edema. Mallampati: II Allergies reviewed. Labs dated 03/01 reviewed. Cr, Hgb, Plt within range. Previous echocardiogram dated 02/28 reviewed. The patient is appropriate for SYDNEY due to: [x ] Cardioversion [ ] Age <25 years [ ] Oxygen requirement >2L [ ] Recent CVA [ ] Morbid obesity [ ] Obstructive sleep apnea [ ] Hemodynamic instability [ ] Chronic narcotics/alcoholism [ ] ASA IV or greater SYDNEY will be done with anesthesia in [facility]. Please see forthcoming anesthesia note. The patient's questions regarding the procedure were answered. Written, informed consent was obtained after a thorough discussion of the risks and benefits of SYDNEY as detailed in the printed consent form. Lali Sam MD [facility] [place] Crew Leader/Control Room Operator, PGY-4 Pager #[phone] Can Epic message me 7AM-4PM on week for non-urgent matters * Consult Note - Rachel Lorenzo RPH - 02/28/2022 5:33 PM EDT Clinical Pharmacist Review; Rachel Lorenzo RPH, PharmD Geriatric ED Medication Reconciliation Patient: Kelly Shell 72 y.o. male 1950 PCP: Domenica Atkins APRN Pharmacy: [facility] Allergies and Drug intolerance: No Known Allergies Reconciled Medication List: Current Facility-Administered Medications Medication Dose Route Frequency Provider Last Rate Last Admin ??? magnesium sulfate 2 g in sterile water 50 mL infusion 2 g Intravenous Once Alfredito Israel MD 25 mL/hr at 02/28/22 1725 2 g at 02/28/22 1725 Current Outpatient Medications Medication Sig Dispense Refill [...] Sustained Release Take by mouth daily. ??? omeprazole (PriLOSEC) 20 mg Capsule, Delayed Release(E.C.) Take 20 mg by mouth daily. ??? Psyllium Seed-Sucrose (0) Powder Take by mouth daily. ??? metoprolol succinate XL (Toprol-XL) 25 mg Tablet Sustained Release 24 hr Take 37.5 mg by mouth daily. ??? rivaroxaban (Xarelto) 20 mg Tablet Take 20 mg by mouth daily. ??? lactobacillus rhamnosus, GG, (CULTURELLE) 10 billion cell Capsule Take 1 capsule by mouth daily. ??? sildenafiL (VIAGRA) 50 mg Tablet Take 50 mg by mouth as needed for Erectile Dysfunction. ??? SIMETHICONE ORAL Take by mouth as needed. Medication list is up to date and reconciled Changes made to home medication list: 1. Additions: ?? Zolpidem 5 mg 2. Deletions: ?? Eliquis ?? Tamsulosin ?? Aspirin 3. Changes: ?? none Beer's List Review: Medication Risk Recommendation zolpidem This medication is associated with delirium, falls, fractures, increased emergency room visits/hospitalizations and motor vehicle crashes in older adults. Avoid use glimepiride Sulfonylureas are associated with a risk of severe, prolonged hypoglycemia in older adults. Avoid use unless alternative medications ineffective Pertinent Drug Interactions: none Patient experiencing side effects from medications? no Rachel Lorenzo, [facility] 02/28/22 Duration: 30 minutes * Plan of Care - Lali Sam MD - 02/28/2022 4:07 PM EDT Images from the original note were not included. Crew Leader/Control Room Operator Plan of Care 72 M with history of paroxysmal Afib/flutter, s/p Atrial flutter ablation and DCCV on 01/02/2022 (elective). He was found to have typical right atrial counterclockwise isthmus that was ablated but alsofound to have pAfib. Afterwards, he was taking metoprolol as well as eliquis, saw EP in clinic f/u on 01/10, and was in afib (HR90s), and planned for sotalol load admission. Unfortunately, he missed adose of eliquis on Monday 02/12 after falling at home (per patient and family, woke up in night, stumbled due to darkness). Called in 02/26 that has had shortness of breath, came in today 02/27 to ER. HR in 130-140s, blood pressure 107/72 to 131/99. Cr normal. Hgb normal. VBG showing 7.39 / 41. Exam- pitting edema 2+ ble, crackles on lung exam, heart sounds distant. CXR showing pulm edema. Lasix IV 40 given with 850 cc output. A TTE shows LVEF 23%, severe global hypokinesis, RV moderately decreased, severe dilated LA. Moderate MR, TR. Plan -Ad[facility] , [place] level -Aggressive IV diuresis. Anticipate more lasix around 8 PM -Will need SYDNEY prior to cardioversion vs antiarrhythmic (posisble dofetilide? Will discuss with EP) -low threshold for rescue bipap -continue anticoagluation Lali Sam MD [facility] [place] Crew Leader/Control Room Operator, PGY-4 Pager #[phone] Can Epic message me 7AM-4PM on weekdays for non-urgent matters * ED Triage - Yajaira Small RN - 02/28/2022 10:26 AM EDT Patient arrives Via WC. Pt called from PCP for uncontrolled Afib. Pt denies SOB. Endorses SOB. Patient A&O x 4. Patient speaking in clear, logical, and full sentences. Respiratory rate regular and unlabored. Skin appropriate color, warm, and dry. HPI (Adult) Stated Reason for Visit: Called by PCP to come in for uncontrolled AFib. History Obtained From: patient documented in this encounter Plan of Treatment Upcoming Encounters Date Type Department Care Team (Late st Contact Info) Description 12/23/2024 3:30 PM EDT Office Visit Cardiology at [address] [phone] Carlos Eduardo Quan, [facility] [place] [address] Scheduled Orders Name Type Priority Associated Diagnoses Orde r Schedule EKG 12 Lead ECG STAT Chronic atrial fibrillation Scheduled @ 0600 for 1 Occurrences starting 03/03/2022 until 03/03/2022 Scheduled Referrals Name Type Priority Associated Diagnoses Order Schedule Referral to Hematology and Oncology Outpatient Referral Routine Drug-induced ITP Ordered: 03/11/2022 documented as of this encounter Procedures Procedure Name Priority Date/Time Associated Diagnosis Comments POCT GLUCOSE Routine 03/11/2022 11:55 AM EDT HC DIGOXIN, SERUM Timed 03/11/2022 8:1 2 AM EDT POCT GLUCOSE Routine 03/11/2022 7:29 AM EDT SCAN, PERIPHERAL BLOOD STAT 4:35 AM EDT HEMOGRAM STAT 03/11/2022 4:35 AM EDT DIFFERENTIAL, AUTOMATED STAT 03/11/2022 4:35 AM EDT HC VENIPUNCTURE STAT 03/11/2022 4:35 AM EDT HC MAGNESIUM, SERUM STAT 03/11/2022 4 :35 AM EDT BASIC METABOLIC PANEL STAT 03/11/2022 4:35 AM EDT POCT GLUCOSE Routine 03/10/2022 8:10 PM EDT POCT GLUCOSE Routine 03/10/2022 4:27 PM EDT POCT GLUCOSE Routine 03/10/2022 2:46 PM EDT POCT GLUCOSE Routine 03/10/2022 1:01 PM EDT POCT GLUCOSE Routine 03/10/2022 11:57 AM EDT POCT GLUCOSE Routine 03/10/2022 7:55 AM EDT HEMOGRAM STAT 03/10/2022 3:57 AM EDT DIFFERENTIAL, AUTOMATED STAT 03/10/2022 3:57 AM EDT HC VENIPUNCTURE STAT 03/10/2022 3:57 AM EDT HC MAGNESIUM, SERUM STAT 03/10/2022 3 :57 AM EDT BASIC METABOLIC PANEL STAT 03/10/2022 3:57 AM EDT POCT GLUCOSE Routine 03/09/2022 7:11 PM EDT POCT GLUCOSE Routine 03/09/2022 4:56 PM EDT POCT GLUCOSE Routine 03/09/2022 2:46 PM EDT POCT GLUCOSE Routine 03/09/2022 12:16 PM EDT POCT GLUCOSE Routine 03/09/2022 7:53 AM EDT HEMOGRAM STAT 03/09/2022 4:14 AM EDT DIFFERENTIAL, AUTOMATED STAT 03/09/2022 4:14 AM EDT HC VENIPUNCTURE STAT 03/09/2022 4:14 AM EDT HC MAGNESIUM, SERUM STAT 03/09/2022 4 :14 AM EDT BASIC METABOLIC PANEL STAT 03/09/2022 4:14 AM EDT POCT GLUCOSE Routine 03/08/2022 9:13 PM EDT POCT GLUCOSE Routine 03/08/2022 4:47 PM EDT POCT GLUCOSE Routine 03/08/2022 2:22 PM EDT POCT GLUCOSE Routine 03/08/2022 11:49 AM EDT POCT GLUCOSE Routine 03/08/2022 7:28 AM EDT POCT GLUCOSE Routine 03/08/2022 5:21 AM EDT SCAN, PERIPHERAL BLOOD STAT 3:41 AM EDT HEMOGRAM STAT 03/08/2022 3:41 AM EDT DIFFERENTIAL, AUTOMATED STAT 03/08/2022 3:41 AM EDT HC VENIPUNCTURE STAT 03/08/2022 3:41 AM EDT HC MAGNESIUM, SERUM STAT 03/08/2022 3 :41 AM EDT BASIC METABOLIC PANEL STAT 03/08/2022 3:41 AM EDT POCT GLUCOSE Routine 03/07/2022 11:40 PM EDT POCT GLUCOSE Routine 03/07/2022 7:59 PM EDT POCT GLUCOSE Routine 03/07/2022 4:10 PM EDT POCT GLUCOSE Routine 03/07/2022 11:19 AM EDT EKG 12-LEAD STAT 03/07/2022 8:58 AM EDT Chronic atrial fibrillation POCT GLUCOSE Routine 03/07/2022 7:48 AM EDT HEMOGRAM STAT 03/07/2022 5:15 AM EDT DIFFERENTIAL, AUTOMATED STAT 03/07/2022 5:15 AM EDT HC VENIPUNCTURE STAT 03/07/2022 5:15 AM EDT HC MAGNESIUM, SERUM STAT 03/07/2022 5 :15 AM EDT BASIC METABOLIC PANEL STAT 03/07/2022 5:15 AM EDT POCT GLUCOSE Routine 03/07/2022 4:15 AM EDT POCT GLUCOSE Routine 03/06/2022 11:26 PM EDT POCT GLUCOSE Routine 03/06/2022 4:11 PM EDT US ABDOMEN LIMITED HEPATOLOGY PROTOCOL Routine 03/06/2022 2:54 PM EDT POCT GLUCOSE Routine 03/06/2022 11:51 AM EDT POCT GLUCOSE Routine 03/06/2022 7:17 AM EDT POCT GLUCOSE Routine 03/06/2022 4:14 AM EDT HEMOGRAM STAT 03/06/2022 3:20 AM EDT DIFFERENTIAL, AUTOMATED STAT 03/06/2022 3:20 AM EDT HC CBC,PLT & AUTO DIFF STAT 3:20 AM EDT HC MAGNESIUM, SERUM STAT 03/06/2022 3 :20 AM EDT BASIC METABOLIC PANEL STAT 03/06/2022 3:20 AM EDT POCT GLUCOSE Routine 03/05/2022 11:57 PM EDT POCT GLUCOSE Routine 03/05/2022 8:06 PM EDT HC POTASSIUM Routine 03/05/2022 4:09 PM EDT POCT GLUCOSE Routine 03/05/2022 3:39 PM EDT POCT GLUCOSE Routine 03/05/2022 11:31 AM EDT HC POTASSIUM Routine 03/05/2022 9:23 AM EDT PRO-BRAIN NATRIURETIC PEPTIDE Routine 03/05/2022 9:23 AM EDT HEPATIC FUNCTION PANEL Routine 9:23 AM EDT POCT GLUCOSE Routine 03/05/2022 7:16 AM EDT SCAN, PERIPHERAL BLOOD STAT 4:23 AM EDT HEMOGRAM STAT 03/05/2022 4:23 AM EDT DIFFERENTIAL, AUTOMATED STAT 03/05/2022 4:23 AM EDT HC CBC,PLT & AUTO DIFF STAT 4:23 AM EDT HC MAGNESIUM, SERUM STAT 03/05/2022 4 :23 AM EDT BASIC METABOLIC PANEL STAT 03/05/2022 4:23 AM EDT POCT GLUCOSE Routine 03/05/2022 4:20 AM EDT POCT GLUCOSE Routine 03/04/2022 11:47 PM EDT POCT GLUCOSE Routine 03/04/2022 8:17 PM EDT POCT GLUCOSE Routine 03/04/2022 4:22 PM EDT POCT GLUCOSE Routine 03/04/2022 11:21 AM EDT POCT GLUCOSE Routine 03/04/2022 7:44 AM EDT POCT GLUCOSE Routine 03/04/2022 5:25 AM EDT POCT GLUCOSE Routine 03/04/2022 4:17 AM EDT HEMOGRAM STAT 03/04/2022 4:07 AM EDT DIFFERENTIAL, AUTOMATED STAT 03/04/2022 4:07 AM EDT HC VENIPUNCTURE STAT 03/04/2022 4:07 AM EDT HC MAGNESIUM, SERUM STAT 03/04/2022 4 :07 AM EDT BASIC METABOLIC PANEL STAT 03/04/2022 4:07 AM EDT POCT GLUCOSE Routine 03/04/2022 12:14 AM EDT POCT GLUCOSE Routine 03/03/2022 7:59 PM EDT HC FIBRINOGEN TITER Routine 03/03/2022 4 :24 PM EDT HC VENIPUNCTURE Routine 03/03/2022 4:24 PM EDT POTASSIUM Routine 03/03/2022 4:24 PM EDT HC LACTIC DEHYDROGENASE Routine 03/03/2022 4:24 PM EDT HC HAPTOGLOBINS, SERUM Routine 4:24 PM EDT POCT GLUCOSE Routine 03/03/2022 4:21 PM EDT PATHOLOGY SLIDE REVIEW Routine 1:09 PM EDT HC VENIPUNCTURE Routine 03/03/2022 12:36 PM EDT SCAN, PERIPHERAL BLOOD Routine 12:36 PM EDT HEMOGRAM Routine 03/03/2022 12:36 PM EDT DIFFERENTIAL, AUTOMATED Routine 03/03/2022 12:36 PM EDT HC PARTIAL THROMBOPLASTIN TIME Routine 03/03/2022 12:36 PM EDT HC PROTHROMBIN TIME Routine 03/03/2022 1 2:36 PM EDT POCT GLUCOSE Routine 03/03/2022 11:37 AM EDT HC POTASSIUM Routine 03/03/2022 11:00 AM EDT PRO-BRAIN NATRIURETIC PEPTIDE Routine 03/03/2022 11:00 AM EDT ELECTROLYTES PANEL Routine 03/03/2022 11 :00 AM EDT POCT GLUCOSE Routine 03/03/2022 8:11 AM EDT HEMOGRAM STAT 03/03/2022 4:06 AM EDT DIFFERENTIAL, AUTOMATED STAT 03/03/2022 4:06 AM EDT HC VENIPUNCTURE STAT 03/03/2022 4:06 AM EDT HC MAGNESIUM, SERUM STAT 03/03/2022 4 :06 AM EDT BASIC METABOLIC PANEL STAT 03/03/2022 4:06 AM EDT POCT GLUCOSE Routine 03/03/2022 4:04 AM EDT POCT GLUCOSE Routine 03/03/2022 12:33 AM EDT POCT GLUCOSE Routine 03/02/2022 8:32 PM EDT HC VENIPUNCTURE Routine 03/02/2022 5:05 PM EDT POCT GLUCOSE Routine 03/02/2022 4:49 PM EDT POCT GLUCOSE Routine 03/02/2022 1:26 PM EDT ELECTROLYTES PANEL Routine 03/02/2022 1: 25 PM EDT POCT GLUCOSE Routine 03/02/2022 12:08 PM EDT ECHO LMTD W/O CONTRAST W LMTD SPEC DOPP COLOR DOPP Routine 03/02/2022 11:24 AM EDT Longstanding persistent atrial fibrillation EKG 12-LEAD STAT 03/02/2022 8:42 AM EDT Chronic atrial fibrillation HC POTASSIUM Routine 03/02/2022 8:29 AM EDT POCT GLUCOSE Routine 03/02/2022 8:04 AM EDT POCT GLUCOSE Routine 03/02/2022 3:27 AM EDT HEMOGRAM STAT 03/02/2022 3:20 AM EDT DIFFERENTIAL, AUTOMATED STAT 03/02/2022 3:20 AM EDT HC CBC,PLT & AUTO DIFF STAT 3:20 AM EDT HC THYROID STIMULATING HORMONE, SERUM STAT 03/02/2022 3:20 AM EDT HC MAGNESIUM, SERUM STAT 03/02/2022 3 :20 AM EDT BASIC METABOLIC PANEL STAT 03/02/2022 3:20 AM EDT POCT GLUCOSE Routine 03/01/2022 11:45 PM EDT POCT GLUCOSE Routine 03/01/2022 10:30 PM EDT POCT GLUCOSE Routine 03/01/2022 7:43 PM EDT POCT GLUCOSE Routine 03/01/2022 5:01 PM EDT ELECTROLYTES PANEL Routine 03/01/2022 12 :57 PM EDT SYDNEY W LMTD SPECTRAL DOPPLER COLOR DOPPLER AND CARDIOVERSION Routine 03/01/2022 11:27 AM EDT Chronic atrial fibrillation POCT GLUCOSE Routine 03/01/2022 11:02 AM EDT POCT GLUCOSE Routine 03/01/2022 8:04 AM EDT POCT GLUCOSE Routine 03/01/2022 4:38 AM EDT HEMOGRAM STAT 03/01/2022 4:30 AM EDT DIFFERENTIAL, AUTOMATED STAT 03/01/2022 4:30 AM EDT HC CBC,PLT & AUTO DIFF STAT 4:30 AM EDT HC THYROID STIMULATING HORMONE, SERUM STAT 03/01/2022 4:30 AM EDT HC MAGNESIUM, SERUM STAT 03/01/2022 4 :30 AM EDT HC HEMOGLOBIN A1C Routine 03/01/2022 4:3 0 AM EDT BASIC METABOLIC PANEL STAT 03/01/2022 4:30 AM EDT POCT GLUCOSE Routine 03/01/2022 12:21 AM EDT HC L-LACTATE Routine 02/28/2022 9:30 PM EDT HC MAGNESIUM, SERUM Routine 02/28/2022 9 :30 PM EDT LIPID PANEL (REFLEX DIRECT LDL) Routine 02/28/2022 9:30 PM EDT BASIC METABOLIC PANEL Routine 02/28/2022 9:30 PM EDT POCT GLUCOSE Routine 02/28/2022 8:31 PM EDT BLOOD GAS VENOUS POC Routine 02/28/2022 4:16 PM EDT ECHO COMPLETE W CONTRAST Routine 02/28/2022 3:43 PM EDT Chronic atrial fibrillation URINALYSIS MICROSCOPIC EXAM STAT 02/28/2022 2:15 PM EDT URINALYSIS WITH REFLEX CULTURE STAT 02/28/2022 2:15 PM EDT US CARDIAC (SYNC) Routine 02/28/2022 12: 56 PM EDT XR CHEST ONE VIEW STAT 02/28/2022 12: [address] HEAD WO CONTRAST (GENERIC) STAT 02/28/2022 12:07 PM EDT POCT GLUCOSE Routine 02/28/2022 11:42 AM EDT HEMOGRAM STAT 02/28/2022 11:12 AM EDT DIFFERENTIAL, AUTOMATED STAT 02/28/2022 11:12 AM EDT HC CBC,PLT & AUTO DIFF STAT 11:12 AM EDT TSH STAT 02/28/2022 11:12 AM EDT HC PHOSPHORUS, SERUM STAT 02/28/2022 11:12 AM EDT PRO-BRAIN NATRIURETIC PEPTIDE STAT 02/28/2022 11:12 AM EDT HC MAGNESIUM, SERUM STAT 02/28/2022 1 1:12 AM EDT HEPATIC FUNCTION PANEL STAT 11:12 AM EDT BASIC METABOLIC PANEL STAT 02/28/2022 11:12 AM EDT EKG 12-LEAD STAT 02/28/2022 10:50 AM EDT documented in this encounter Results * (ABNORMAL) POCT Glucose (03/11/2022 11:55 AM EDT) [facility] Glucose, POC 244(H) 65 - 199 mg/dL [facility] Comment: Supplemental ranges: <140 mg/dL before meals <180 mg/dL all other times of the day Blood 03/11/2022 11:5 5 AM EDT 03/11/2022 11:55 AM EDT Virginia Chris MD POINT OF CARE TEST O RDERABLES [facility] [place] [address] * (ABNORMAL) Digoxin level (03/11/2022 8:12 AM EDT) [facility] Digoxin 0.6(L) 0.8 - 2.0 mcg/L [facility] Blood 03/11/2022 8:12 AM EDT 03/11/2022 8:31 AM EDT Narrative Resulting Agency Comment Spec In Lab Martir Rios MD CHEMISTRY ORDERABLES Performing Organization Address [facility] Co de Phone Number [facility] [place] [address] * POCT Glucose (03/11/2022 7:29 AM EDT) Pathologist [facility] Glucose, POC 181 65 - 199 mg/dL [facility] Comment: Supplemental ranges: <140 mg/dL before meals <180 mg/dL all other times of the day Blood 03/11/2022 7:29 AM EDT 03/11/2022 7:29 AM EDT Virginia Chris MD POINT OF CARE TEST O RDERABLES Performing Organization Address [facility] Co de Phone Number [facility] [place] [address] * Scan, Peripheral Blood (03/11/2022 4:35 AM EDT) [facility] Plat estimate Decreased [facility] RBC Morphology Abnormal [facility] Ovalocytes 1-5 /HPF [facility] Atypical Lymph Many [facility] Blood 03/11/2022 4:35 AM EDT 03/11/2022 5:15 AM EDT Narrative Resulting Agency Comment Spec In Lab Alfredito Israel MD HEMATOLOGY ORDERABL ES Performing Organization Address [facility]/ZIP Co de Phone Number [facility] [place] [address] * (ABNORMAL) Differential, Automated (03/11/2022 4:35 AM EDT) Neutrophil % 80.6 % [facility] Neutrophil Absolute 9.62(H) 1.70 - 6.10 x10(3)/mc L [facility] Lymph % 11.6 % [facility] Lymphocytes Abs 1.4 0.9 - 3.2 x10(3)/ L [facility] Monocyte % 6.4 % [facility] Monocyte Abs 0.8 0.3 - 0.9 x10(3)/ L [facility] Eos % 0.0 % [facility] Eosinophils Abs 0.0 0.0 - 0.4 x10(3)/[facility] Basophil % 0.2 % [facility] Baso Absolute 0.0 0.0 - 0.1 x10(3)/[facility] Immature Gran % 1.20 % [facility] Comment: Immature granulocytes(IG's)percentage and absolute count will include metamyelocytes, myelocytes, and promyelocytes. Blood smears from CBCs yielding IG's will be scanned manually for concordance. If this scan disagrees with the automated IG or if promyelocytes are noted, a manual differential will be performed. Immature Gran Absolute 0.14(H) 0.00 - 0.04 x10(3)/[facility] Blood 03/11/2022 4:35 AM EDT 03/11/2022 5:15 AM EDT Narrative Resulting Agency Comment Spec In Lab Alfredito Israel MD HEMATOLOGY ORDERABL ES [facility] [place] [address] * (ABNORMAL) Hemogram (03/11/2022 4:35 AM EDT) White Blood Cell 11.9(H) 4.0 - 9.5 x10(3)/ L [facility] Red Blood Cell 4.38(L) 4.58 - 5.54 x10(6)/ L [facility] Hemoglobin 13.3(L) 13.7 - 16.5 g/dL [facility] Hematocrit 39.8(L) 40.5 - 48.5 % [facility] Mean Cell Volume 90.9 82.9 - 93.1 fL [facility] Mean Cell Hemoglobin 30.4 27.5 - 32.1 pg [facility] Mean Cell Hemoglobin Concentration 33.4 32.0 - 35.7 g/dL [facility] Platelet 46(L) 145 - 357 x10(3)/mc L [facility] RDW Standard Deviation 44.8 36.0 - 45.0 fL [facility] RDW coefficient of variation 13.5 11.4 - 13.8 % [facility] Mean Platelet Volume 13.6(H) 7.6 - 12.9 fL [facility] NRBC% auto 0.0 % [facility] NRBC Absolute 0.000 0.000 - 0.000 x10(3)/mc L [facility] Blood 03/11/2022 4:35 AM EDT 03/11/2022 5:15 AM EDT Narrative Resulting Agency Comment Spec In Lab Alfredito Israel MD HEMATOLOGY ORDERABL ES Performing Organization Address [facility] Co de Phone Number [facility] [place] [address] * Magnesium (03/11/2022 4:35 AM EDT) Magnesium 0.82 0.69 - 1.07 mmol/L [facility] Blood 03/11/2022 4:35 AM EDT 03/11/2022 5:15 AM EDT Narrative Resulting Agency Comment Spec In Lab Jorge Deutsch MD CHEMISTRY ORDERABLES Performing Organization Address [facility] Co de Phone Number [facility] [place] [address] * (ABNORMAL) Basic Metabolic Panel (non-fasting) (03/11/2022 4:35 AM EDT) Glucose 201(H) 65 - 199 mg/dL [facility] Comment:Diabetes: >=200 mg/d L plus symptoms Blood Urea Nitrogen 29(H) 10 - 20 mg/dL [facility] Creatinine 0.82 0.80 - 1.50 mg/dL [facility] Sodium 136 135 - 145 mmol/L [facility] Potassium 4.6 3.5 - 5.0 mmol/L [facility] Comment: Please note: ??Patients with WBC >100,000 may have falsely elevated Potassium levels. ??For accurate Potassium quantification in these patients send serum separator tube (gold top) for subsequent determinations. ??Contact the Clinical Chemistry Laboratory if there are any questions. Chloride 102 98 - 107 mmol/L [facility] Carbon Dioxide 23 22 - 31 mmol/L [facility] Anion Gap 11 5 - 15 mmol/L [facility] Calcium 9.2 8.5 - 10.5 mg/dL [facility] Est Glomerular Filtration Rate 93 >=60 mL/min/1. 73 m?? [facility] Comment: This patient's estimated [...] and symptoms in addition to eGFR. Blood 03/11/2022 4:35 AM EDT 03/11/2022 5:15 AM EDT Narrative Resulting Agency Comment Spec In Lab Jorge Deutsch MD CHEMISTRY ORDERABLES [facility] [place] [address] * POCT Glucose (03/10/2022 8:10 PM EDT) [facility] Signature Glucose, POC 195 65 - 199 mg/dL [facility] Comment: Supplemental ranges: <140 mg/dL before meals <180 mg/dL all other times of the day Blood 03/10/2022 8:10 PM EDT 03/10/2022 8:10 PM EDT Virginia Chris MD POINT OF CARE TEST O ALEX Performing Organization Address City/[facility]/ZIP Co de Phone Number [facility] [place] [address] * POCT Glucose (03/10/2022 4:27 PM EDT) Glucose, POC 195 65 - 199 mg/dL [facility] Comment: Supplemental ranges: <140 mg/dL before meals <180 mg/dL all other times of the day Blood 03/10/2022 4:27 PM EDT 03/10/2022 4:27 PM EDT Virginia Chris MD POINT OF CARE TEST O ALEX Performing Organization Address [facility] Co de Phone Number [facility] [place] [address] * (ABNORMAL) POCT Glucose (03/10/2022 2:46 PM EDT) Glucose, POC 262(H) 65 - 199 mg/dL [facility] Comment: Supplemental ranges: <140 mg/dL before meals <180 mg/dL all other times of the day Blood 03/10/2022 2:46 PM EDT 03/10/2022 2:46 PM EDT Virginia Chris MD POINT OF CARE TEST O ALEX Performing Organization Address City/[facility] Co de Phone Number [facility] [place] [address] * (ABNORMAL) POCT Glucose (03/10/2022 1:01 PM EDT) Glucose, POC 311(H) 65 - 199 mg/dL [facility] Comment: Supplemental ranges: <140 mg/dL before meals <180 mg/dL all other times of the day Blood 03/10/2022 1:01 PM EDT 03/10/2022 1:01 PM EDT Virginia Chris MD POINT OF CARE TEST O ALEX Performing Organization Address City/[facility]/ZIP Co de Phone Number [facility] [place] [address] * (ABNORMAL) POCT Glucose (03/10/2022 11:57 AM EDT) Glucose, POC 306(H) 65 - 199 mg/dL [facility] Comment: Supplemental ranges: <140 mg/dL before meals <180 mg/dL all other times of the day Blood 03/10/2022 11:5 7 AM EDT 03/10/2022 11:57 AM EDT Virginia Chris MD POINT OF CARE TEST Cory JOHNSON Performing Organization Address [facility] Co de Phone Number [facility] [place] [address] * (ABNORMAL) POCT Glucose (03/10/2022 7:55 AM EDT) Glucose, POC 218(H) 65 - 199 mg/dL [facility] Comment: Supplemental ranges: <140 mg/dL before meals <180 mg/dL all other times of the day Blood 03/10/2022 7:55 AM EDT 03/10/2022 7:55 AM EDT Virginia Chris MD POINT OF CARE TEST O ALEX Performing Organization Address City/[facility]/ZIP Co de Phone Number [facility] [place] [address] * (ABNORMAL) Differential, Automated (03/10/2022 3:57 AM EDT) Neutrophil % 80.9 % [facility] Neutrophil Absolute 9.19(H) 1.70 - 6.10 x10(3)/ L [facility] Lymph % 12.0 % [facility] Lymphocytes Abs 1.4 0.9 - 3.2 x10(3)/ L [facility] Monocyte % 5.5 % [facility] Monocyte Abs 0.6 0.3 - 0.9 x10(3)/[facility] Eos % 0.0 % [facility] Eosinophils Abs 0.0 0.0 - 0.4 x10(3)/[facility] Basophil % 0.2 % [facility] Baso Absolute 0.0 0.0 - 0.1 x10(3)/[facility] Immature Gran % 1.40 % [facility] Comment: Immature granulocytes(IG's)percentage and absolute count will include metamyelocytes, myelocytes, and promyelocytes. Blood smears from CBCs yielding IG's will be scanned manually for concordance. If this scan disagrees with the automated IG or if promyelocytes are noted, a manual differential will be performed. Immature Gran Absolute 0.16(H) 0.00 - 0.04 x10(3)/[facility] Blood 03/10/2022 3:57 AM EDT 03/10/2022 4:36 AM EDT Narrative Resulting Agency Comment Spec In Lab Alfredito Israel MD HEMATOLOGY ORDERABL ES [facility] [place] [address] * (ABNORMAL) Hemogram (03/10/2022 3:57 AM EDT) Pathologist [facility] White Blood Cell 11.4(H) 4.0 - 9.5 x10(3)/[facility] Red Blood Cell 4.48(L) 4.58 - 5.54 x10(6)/mc L [facility] Hemoglobin 13.7 13.7 - 16.5 g/dL [facility] Hematocrit 40.9 40.5 - 48.5 % [facility] Mean Cell Volume 91.3 82.9 - 93.1 fL [facility] Mean Cell Hemoglobin 30.6 27.5 - 32.1 pg [facility] Mean Cell Hemoglobin Concentration 33.5 32.0 - 35.7 g/dL [facility] Platelet 31(L) 145 - 357 x10(3)/mc L [facility] RDW Standard Deviation 44.0 36.0 - 45.0 fL [facility] RDW coefficient of variation 13.2 11.4 - 13.8 % [facility] Mean Platelet Volume 14.0(H) 7.6 - 12.9 fL [facility] NRBC% auto 0.0 % [facility] NRBC Absolute 0.000 0.000 - 0.000 x10(3)/mc L [facility] Blood 03/10/2022 3:57 AM EDT 03/10/2022 4:36 AM EDT Narrative Resulting Agency Comment Spec In Lab Alfredito Israel MD HEMATOLOGY ORDERABL ES Performing Organization Address City/[facility]/ZIP Co de Phone Number [facility] [place] [address] * Magnesium (03/10/2022 3:57 AM EDT) Magnesium 0.86 0.69 - 1.07 mmol/L [facility] Blood 03/10/2022 3:57 AM EDT 03/10/2022 4:36 AM EDT Narrative Resulting Agency Comment Spec In Lab Jorge Deutsch MD CHEMISTRY ORDERABLES Performing Organization Address City/[facility]/ZIP Co de Phone Number [facility] [place] [address] * (ABNORMAL) Basic Metabolic Panel (non-fasting) (03/10/2022 3:57 AM EDT) Glucose 242(H) 65 - 199 mg/dL [facility] Comment:Diabetes: >=200 mg/d L plus symptoms Blood Urea Nitrogen 38(H) 10 - 20 mg/dL [facility] Creatinine 0.97 0.80 - 1.50 mg/dL [facility] Sodium 133(L) 135 - 145 mmol/L [facility] Potassium 4.8 3.5 - 5.0 mmol/L [facility] Comment: Please note: ??Patients with WBC >100,000 may have falsely elevated Potassium levels. ??For accurate Potassium quantification in these patients send serum separator tube (gold top) for subsequent determinations. ??Contact the Clinical Chemistry Laboratory if there are any questions. Chloride 98 98 - 107 mmol/L [facility] Carbon Dioxide 24 22 - 31 mmol/L [facility] Anion Gap 11 5 - 15 mmol/L [facility] Calcium 9.3 8.5 - 10.5 mg/dL [facility] Est Glomerular Filtration Rate 83 >=60 mL/min/1. 73 m?? [facility] Comment: This patient's estimated [...] and symptoms in addition to eGFR. Blood 03/10/2022 3:57 AM EDT 03/10/2022 4:36 AM EDT Narrative Resulting Agency Comment Spec In Lab Jorge Deutsch MD CHEMISTRY ORDERABLES Performing Organization Address City/State/[facility] Co de Phone Number [facility] [place] [address] * (ABNORMAL) POCT Glucose (03/09/2022 7:11 PM EDT) Glucose, POC 229(H) 65 - 199 mg/dL [facility] Comment: Supplemental ranges: <140 mg/dL before meals <180 mg/dL all other times of the day Blood 03/09/2022 7:11 PM EDT 03/09/2022 7:11 PM EDT Virginia Chris MD POINT OF CARE TEST O ALEX Performing Organization Address [facility] Co de Phone Number [facility] [place] [address] * (ABNORMAL) POCT Glucose (03/09/2022 4:56 PM EDT) Glucose, POC 241(H) 65 - 199 mg/dL [facility] Comment: Supplemental ranges: <140 mg/dL before meals <180 mg/dL all other times of the day Blood 03/09/2022 4:56 PM EDT 03/09/2022 4:56 PM EDT Virginia Chris MD POINT OF CARE TEST Cory JOHNSON Performing Organization Address [facility] Co de Phone Number [facility] [place] [address] * (ABNORMAL) POCT Glucose (03/09/2022 2:46 PM EDT) Glucose, POC 255(H) 65 - 199 mg/dL [facility] Comment: Supplemental ranges: <140 mg/dL before meals <180 mg/dL all other times of the day Blood 03/09/2022 2:46 PM EDT 03/09/2022 2:46 PM EDT Virginia Chris MD POINT OF CARE TEST O RDERABLES Performing Organization Address [facility] de Phone Number [facility] [place] [address] * (ABNORMAL) POCT Glucose (03/09/2022 12:16 PM EDT) Glucose, POC 268(H) 65 - 199 mg/dL [facility] Comment: Supplemental ranges: <140 mg/dL before meals <180 mg/dL all other times of the day Blood 03/09/2022 12:1 6 PM EDT 03/09/2022 12:16 PM EDT Virginia Chris MD POINT OF CARE TEST O STEPHANIEERAJESSIE Performing Organization Address [facility] de Phone Number [facility] [place] [address] * (ABNORMAL) POCT Glucose (03/09/2022 7:53 AM EDT) Glucose, POC 213(H) 65 - 199 mg/dL [facility] Comment: Supplemental ranges: <140 mg/dL before meals <180 mg/dL all other times of the day Blood 03/09/2022 7:53 AM EDT 03/09/2022 7:53 AM EDT Martir Rios MD POINT OF CARE TEST O ALEX Performing Organization Address [facility] Co de Phone Number [facility] [place] [address] * (ABNORMAL) Differential, Automated (03/09/2022 4:14 AM EDT) Neutrophil % 79.0 % [facility] Neutrophil Absolute 8.08(H) 1.70 - 6.10 x10(3)/mc L [facility] Lymph % 13.6 % [facility] Lymphocytes Abs 1.4 0.9 - 3.2 x10(3)/mc L [facility] Monocyte % 6.9 % [facility] Monocyte Abs 0.7 0.3 - 0.9 x10(3)/[facility] Eos % 0.0 % [facility] Eosinophils Abs 0.0 0.0 - 0.4 x10(3)/[facility] Basophil % 0.1 % [facility] Baso Absolute 0.0 0.0 - 0.1 x10(3)/[facility] Immature Gran % 0.40 % [facility] Comment: Immature granulocytes(IG's)percentage and absolute count will include metamyelocytes, myelocytes, and promyelocytes. Blood smears from CBCs yielding IG's will be scanned manually for concordance. If this scan disagrees with the automated IG or if promyelocytes are noted, a manual differential will be performed. Immature Gran Absolute 0.04 0.00 - 0.04 x10(3)/[facility] Blood 03/09/2022 4:14 AM EDT 03/09/2022 4:28 AM EDT Narrative Resulting Agency Comment Spec In Lab Alfredito Israel MD HEMATOLOGY ORDERABL ES [facility] [place] [address] * (ABNORMAL) Hemogram (03/09/2022 4:14 AM EDT) White Blood Cell 10.2(H) 4.0 - 9.5 x10(3)/[facility] Red Blood Cell 4.51(L) 4.58 - 5.54 x10(6)/[facility] Hemoglobin 13.7 13.7 - 16.5 g/dL [facility] Hematocrit 40.9 40.5 - 48.5 % [facility] Mean Cell Volume 90.7 82.9 - 93.1 fL [facility] Mean Cell Hemoglobin 30.4 27.5 - 32.1 pg [facility] Mean Cell Hemoglobin Concentration 33.5 32.0 - 35.7 g/dL [facility] Platelet 20(L) 145 - 357 x10(3)/mc L [facility] RDW Standard Deviation 43.8 36.0 - 45.0 fL [facility] RDW coefficient of variation 13.2 11.4 - 13.8 % [facility] Mean Platelet Volume 14.3(H) 7.6 - 12.9 fL [facility] NRBC% auto 0.0 % [facility] NRBC Absolute 0.000 0.000 - 0.000 x10(3)/mc L [facility] Blood 03/09/2022 4:14 AM EDT 03/09/2022 4:28 AM EDT Narrative Resulting Agency Comment Spec In Lab Alfredito Israel MD HEMATOLOGY ORDERABL ES Performing Organization Address [facility] Co de Phone Number [facility] [place] [address] * Magnesium (03/09/2022 4:14 AM EDT) Magnesium 0.85 0.69 - 1.07 mmol/L [facility] Blood 03/09/2022 4:14 AM EDT 03/09/2022 4:28 AM EDT Narrative Resulting Agency Comment Spec In Lab Jorge Deutsch MD CHEMISTRY ORDERABLES Performing Organization Address [facility] Co de Phone Number [facility] [place] [address] * (ABNORMAL) Basic Metabolic Panel (non-fasting) (03/09/2022 4:14 AM EDT) Glucose 239(H) 65 - 199 mg/dL [facility] Comment:Diabetes: >=200 mg/d L plus symptoms Blood Urea Nitrogen 39(H) 10 - 20 mg/dL [facility] Creatinine 1.12 0.80 - 1.50 mg/dL [facility] Sodium 132(L) 135 - 145 mmol/L [facility] Potassium 4.9 3.5 - 5.0 mmol/L [facility] Comment: Please note: ??Patients with WBC >100,000 may have falsely elevated Potassium levels. ??For accurate Potassium quantification in these patients send serum separator tube (gold top) for subsequent determinations. ??Contact the Clinical Chemistry Laboratory if there are any questions. Chloride 97(L) 98 - 107 mmol/L [facility] Carbon Dioxide 25 22 - 31 mmol/L [facility] Anion Gap 10 5 - 15 mmol/L [facility] Calcium 9.3 8.5 - 10.5 mg/dL [facility] Est Glomerular Filtration Rate 70 >=60 mL/min/1. 73 m?? [facility] Comment: This patient's estimated [...] and symptoms in addition to eGFR. Blood 03/09/2022 4:14 AM EDT 03/09/2022 4:28 AM EDT Narrative Resulting Agency Comment Spec In Lab Jorge Deutsch MD CHEMISTRY ORDERABLES [facility] [place] [address] * POCT Glucose (03/08/2022 9:13 PM EDT) Glucose, POC 197 65 - 199 mg/dL [facility] Comment: Supplemental ranges: <140 mg/dL before meals <180 mg/dL all other times of the day Blood 03/08/2022 9:13 PM EDT 03/08/2022 9:13 PM EDT Martir Rios MD POINT OF CARE TEST O RDERABLES [facility] [place] [address] * POCT Glucose (03/08/2022 4:47 PM EDT) Glucose, POC 198 65 - 199 mg/dL [facility] Comment: Supplemental ranges: <140 mg/dL before meals <180 mg/dL all other times of the day Blood 03/08/2022 4:47 PM EDT 03/08/2022 4:47 PM EDT Martir Rios MD POINT OF CARE TEST O RDERAJESSIE Performing Organization Address [facility]/ZIP Co de Phone Number [facility] [place] [address] * (ABNORMAL) POCT Glucose (03/08/2022 2:22 PM EDT) Glucose, POC 258(H) 65 - 199 mg/dL [facility] Comment: Supplemental ranges: <140 mg/dL before meals <180 mg/dL all other times of the day Blood 03/08/2022 2:22 PM EDT 03/08/2022 2:22 PM EDT Martir Rios MD POINT OF CARE TEST O RDERABLES Performing Organization Address City/[facility]/ZIP Co de Phone Number [facility] [place] [address] * (ABNORMAL) POCT Glucose (03/08/2022 11:49 AM EDT) Glucose, POC 277(H) 65 - 199 mg/dL [facility] Comment: Supplemental ranges: <140 mg/dL before meals <180 mg/dL all other times of the day Blood 03/08/2022 11:4 9 AM EDT 03/08/2022 11:49 AM EDT Martir Rios MD POINT OF CARE TEST O RDERAJESSIE Performing Organization Address [facility]/ZIP Co de Phone Number [facility] [place] [address] * (ABNORMAL) POCT Glucose (03/08/2022 7:28 AM EDT) Glucose, POC 298(H) 65 - 199 mg/dL [facility] Comment: Supplemental ranges: <140 mg/dL before meals <180 mg/dL all other times of the day Blood 03/08/2022 7:28 AM EDT 03/08/2022 7:28 AM EDT Martir Rios MD POINT OF CARE TEST O ALEX Performing Organization Address [facility] Co de Phone Number [facility] [place] [address] * (ABNORMAL) POCT Glucose (03/08/2022 5:21 AM EDT) Glucose, POC 240(H) 65 - 199 mg/dL [facility] Comment: Supplemental ranges: <140 mg/dL before meals <180 mg/dL all other times of the day Blood 03/08/2022 5:21 AM EDT 03/08/2022 5:21 AM EDT Martir Rios MD POINT OF CARE TEST O STEPHANIEERAJESSIE Performing Organization Address [facility] Co de Phone Number [facility] [place] [address] * Scan, Peripheral Blood (03/08/2022 3:41 AM EDT) Plat estimate Decreased [facility] RBC Morphology Abnormal [facility] Ovalocytes 1-5 /HPF [facility] Momo Cells 1-5 /HPF [facility] Blood 03/08/2022 3:41 AM EDT 03/08/2022 4:12 AM EDT Narrative Resulting Agency Comment Spec In Lab Alfredito Israel MD HEMATOLOGY ORDERABL ES [facility] [place] [address] * Differential, Automated (03/08/2022 3:41 AM EDT) Neutrophil % 56.2 % [facility] Neutrophil Absolute 1.70 1.70 - 6.10 x10(3)/[facility] LABORATORY Lymph % 32.8 % [facility] Lymphocytes Abs 1.0 0.9 - 3.2 x10(3)/[facility] LABORATORY Monocyte % 9.3 % [facility] Monocyte Abs 0.3 0.3 - 0.9 x10(3)/[facility] LABORATORY Eos % 0.3 % [facility] Eosinophils Abs 0.0 0.0 - 0.4 x10(3)/[facility] LABORATORY Basophil % 0.7 % [facility] Baso Absolute 0.0 0.0 - 0.1 x10(3)/[facility] LABORATORY Immature Gran % 0.70 % [facility] Comment: Immature granulocytes(IG's)percentage and absolute count will include metamyelocytes, myelocytes, and promyelocytes. Blood smears from CBCs yielding IG's will be scanned manually for concordance. If this scan disagrees with the automated IG or if promyelocytes are noted, a manual differential will be performed. Immature Gran Absolute 0.02 0.00 - 0.04 x10(3)/[facility] LABORATORY Blood 03/08/2022 3:41 AM EDT 03/08/2022 4:12 AM EDT Narrative Resulting Agency Comment Spec In Lab Alfredito Israel MD HEMATOLOGY ORDERABL ES Performing Organization Address City/[facility]/ZIP Co de Phone Number [facility] [place] [place] [address] * (ABNORMAL) Hemogram (03/08/2022 3:41 AM EDT) White Blood Cell 3.0(L) 4.0 - 9.5 x10(3)/mc L [facility] Red Blood Cell 4.76 4.58 - 5.54 x10(6)/mc L [facility] Hemoglobin 14.4 13.7 - 16.5 g/dL [facility] Hematocrit 44.3 40.5 - 48.5 % [facility] Mean Cell Volume 93.1 82.9 - 93.1 fL [facility] Mean Cell Hemoglobin 30.3 27.5 - 32.1 pg [facility] Mean Cell Hemoglobin Concentration 32.5 32.0 - 35.7 g/dL [facility] Platelet 19(Critic al) 145 - 357 x10(3)/mc L [facility] Comment: This result has been called to JADYN CASANDRA by YARELIS ARGUETA on 03 08 2022 at 0518, and has been read back. RDW Standard Deviation 45.7(H) 36.0 - 45.0 fL [facility] RDW coefficient of variation 13.3 11.4 - 13.8 % [facility] Mean Platelet Volume 13.6(H) 7.6 - 12.9 fL [facility] NRBC% auto 0.0 % [facility] NRBC Absolute 0.000 0.000 - 0.000 x10(3)/ L [facility] Blood 03/08/2022 3:41 AM EDT 03/08/2022 4:12 AM EDT Narrative Resulting Agency Comment Spec In Lab Alfredito Israel MD HEMATOLOGY ORDERABL ES [facility] [place] [address] * Magnesium (03/08/2022 3:41 AM EDT) Magnesium 0.79 0.69 - 1.07 mmol/L [facility] Blood 03/08/2022 3:41 AM EDT 03/08/2022 4:12 AM EDT Narrative Resulting Agency Comment Spec In Lab Jorge Deutsch MD CHEMISTRY ORDERABLES [facility] [place] [place] [address] * (ABNORMAL) Basic Metabolic Panel (non-fasting) (03/08/2022 3:41 AM EDT) Glucose 217(H) 65 - 199 mg/dL [facility] Comment:Diabetes: >=200 mg/d L plus symptoms Blood Urea Nitrogen 27(H) 10 - 20 mg/dL [facility] Creatinine 1.00 0.80 - 1.50 mg/dL [facility] Sodium 132(L) 135 - 145 mmol/L [facility] Comment:result rechecked-[place] Potassium 4.7 3.5 - 5.0 mmol/L [facility] Comment: result rechecked-[place] Please note: ??Patients with WBC >100,000 may have falsely elevated Potassium levels. ??For accurate Potassium quantification in these patients send serum separator tube (gold top) for subsequent determinations. ??Contact the Clinical Chemistry Laboratory if there are any questions. Chloride 96(L) 98 - 107 mmol/L [facility] Comment:result rechecked-[place] Carbon Dioxide 24 22 - 31 mmol/L [facility] Anion Gap 12 5 - 15 mmol/L [facility] Calcium 8.9 8.5 - 10.5 mg/dL [facility] Est Glomerular Filtration Rate 80 >=60 mL/min/1. 73 m?? [facility] Comment: This patient's estimated [...] and symptoms in addition to eGFR. Blood 03/08/2022 3:41 AM EDT 03/08/2022 4:12 AM EDT Narrative Resulting Agency Comment Spec In Lab Jorge Deutsch MD CHEMISTRY ORDERABLES Performing Organization Address [facility] Co de Phone Number [facility] [place] [address] * (ABNORMAL) POCT Glucose (03/07/2022 11:40 PM EDT) Glucose, POC 234(H) 65 - 199 mg/dL [facility] Comment: Supplemental ranges: <140 mg/dL before meals <180 mg/dL all other times of the day Blood 03/07/2022 11:4 0 PM EDT 03/07/2022 11:40 PM EDT Martir Rios MD POINT OF CARE TEST O RDERABLES Performing Organization Address [facility] Co de Phone Number [facility] [place] [address] * (ABNORMAL) POCT Glucose (03/07/2022 7:59 PM EDT) Glucose, POC 201(H) 65 - 199 mg/dL [facility] Comment: Supplemental ranges: <140 mg/dL before meals <180 mg/dL all other times of the day Blood 03/07/2022 7:59 PM EDT 03/07/2022 7:59 PM EDT Martir Rios MD POINT OF CARE TEST O RDERABLES Performing Organization Address [facility] Co de Phone Number [facility] [place] [address] * POCT Glucose (03/07/2022 4:10 PM EDT) Glucose, POC 162 65 - 199 mg/dL [facility] Comment: Supplemental ranges: <140 mg/dL before meals <180 mg/dL all other times of the day Blood 03/07/2022 4:10 PM EDT 03/07/2022 4:10 PM EDT Martir Rios MD POINT OF CARE TEST O RDERAJESSIE Performing Organization Address [facility] de Phone Number [facility] [place] [address] * POCT Glucose (03/07/2022 11:19 AM EDT) Glucose, POC 185 65 - 199 mg/dL [facility] Comment: Supplemental ranges: <140 mg/dL before meals <180 mg/dL all other times of the day Blood 03/07/2022 11:1 9 AM EDT 03/07/2022 11:19 AM EDT Martir Rios MD POINT OF CARE TEST O RDERABLES Performing Organization Address [facility] Co de Phone Number [facility] [place] [address] * EKG 12 Lead (03/07/2022 8:58 AM EDT) Ventricular rate 97 BPM MUSE SYSTEM QRS Duration 88 ms MUSE SYSTEM Q-T Interval 376 ms MUSE SYSTEM QTC Calculated (Bezet) 477 ms MUSE SYSTEM Calculated R [place] -43 degrees MUSE SYSTEM Calculated T [place] -31 degrees MUSE SYSTEM INTERPRETATION Atrial fibrillation with premature ventricular or aberrantly conducted complexes Left axis deviation Inferior infarct (cited on or before 10-JAN-2022) Abnormal ECG When compared with ECG of 02-MAR-2022 08:42, Atrial fibrillation has replaced Sinus rhythm Vent. rate has increased BY ??33 BPM QRS axis Shifted left Questionable change in initial forces of Inferior leads Nonspecific T wave abnormality, improved in Lateral leads Confirmed by MD Chris Danette ([id number]) on 03/08/2022 3:03:58 PM MUSE SYSTEM 03/07/2022 8:58 AM EDT 03/08/2022 3:03 PM EDT Martir Rios MD ECG ORDERABLES Performing Organization Address City/[facility]/ZIP Co de Phone Number MUSE SYSTEM * POCT Glucose (03/07/2022 7:48 AM EDT) Pathologist [facility] Glucose, POC 165 65 - 199 mg/dL [facility] Comment: Supplemental ranges: <140 mg/dL before meals <180 mg/dL all other times of the day Blood 03/07/2022 7:48 AM EDT 03/07/2022 7:48 AM EDT Martir Rios MD POINT OF CARE TEST O RDERABLES Performing Organization Address City/[facility]/ZIP Co de Phone Number [facility] [place] [phone] * (ABNORMAL) Differential, Automated (03/07/2022 5:15 AM EDT) [facility] Neutrophil % 63.0 % [facility] Neutrophil Absolute 3.91 1.70 - 6.10 x10(3)/mc L [facility] Lymph % 19.2 % [facility] Lymphocytes Abs 1.2 0.9 - 3.2 x10(3)/mc L [facility] Monocyte % 13.2 % [facility] Monocyte Abs 0.8 0.3 - 0.9 x10(3)/mc L [facility] Eos % 2.3 % [facility] Eosinophils Abs 0.1 0.0 - 0.4 x10(3)/mc L [facility] Basophil % 1.3 % [facility] Baso Absolute 0.1 0.0 - 0.1 x10(3)/mc L [facility] Immature Gran % 1.00 % [facility] Comment: Immature granulocytes(IG's)percentage and absolute count will include metamyelocytes, myelocytes, and promyelocytes. Blood smears from CBCs yielding IG's will be scanned manually for concordance. If this scan disagrees with the automated IG or if promyelocytes are noted, a manual differential will be performed. Immature Gran Absolute 0.06(H) 0.00 - 0.04 x10(3)/mc L [facility] Blood 03/07/2022 5:15 AM EDT 03/07/2022 5:19 AM EDT Narrative Resulting Agency Comment Spec In Lab Alfredito Israel MD HEMATOLOGY ORDERABL ES [facility] [place] [place] [address] * (ABNORMAL) Hemogram (03/07/2022 5:15 AM EDT) White Blood Cell 6.2 4.0 - 9.5 x10(3)/mc L [facility] Red Blood Cell 4.89 4.58 - 5.54 x10(6)/mc L [facility] Hemoglobin 14.8 13.7 - 16.5 g/dL [facility] Hematocrit 44.1 40.5 - 48.5 % [facility] Mean Cell Volume 90.2 82.9 - 93.1 fL [facility] Mean Cell Hemoglobin 30.3 27.5 - 32.1 pg [facility] Mean Cell Hemoglobin Concentration 33.6 32.0 - 35.7 g/dL [facility] Platelet 27(L) 145 - 357 x10(3)/mc L [facility] RDW Standard Deviation 44.6 36.0 - 45.0 fL [facility] RDW coefficient of variation 13.5 11.4 - 13.8 % [facility] Mean Platelet Volume 13.8(H) 7.6 - 12.9 fL [facility] NRBC% auto 0.0 % [facility] NRBC Absolute 0.000 0.000 - 0.000 x10(3)/mc L [facility] Blood 03/07/2022 5:15 AM EDT 03/07/2022 5:19 AM EDT Narrative Resulting Agency Comment Spec In Lab Alfredito Israel MD HEMATOLOGY ORDERABL ES Performing Organization Address [facility] Co de Phone Number [facility] [place] [address] * Magnesium (03/07/2022 5:15 AM EDT) Magnesium 0.71 0.69 - 1.07 mmol/L [facility] Blood 03/07/2022 5:15 AM EDT 03/07/2022 5:19 AM EDT Narrative Resulting Agency Comment Spec In Lab Jorge Deutsch MD CHEMISTRY ORDERABLES Performing Organization Address [facility] Co de Phone Number [facility] [place] [address] * (ABNORMAL) Basic Metabolic Panel (non-fasting) (03/07/2022 5:15 AM EDT) Glucose 144 65 - 199 mg/dL [facility] Comment:Diabetes: >=200 mg/d L plus symptoms Blood Urea Nitrogen 24(H) 10 - 20 mg/dL [facility] Creatinine 0.77(L) 0.80 - 1.50 mg/dL [facility] Sodium 134(L) 135 - 145 mmol/L [facility] Potassium 3.5 3.5 - 5.0 mmol/L [facility] Comment: Please note: ??Patients with WBC >100,000 may have falsely elevated Potassium levels. ??For accurate Potassium quantification in these patients send serum separator tube (gold top) for subsequent determinations. ??Contact the Clinical Chemistry Laboratory if there are any questions. Chloride 97(L) 98 - 107 mmol/L [facility] Carbon Dioxide 25 22 - 31 mmol/L [facility] Anion Gap 12 5 - 15 mmol/L [facility] Calcium 8.9 8.5 - 10.5 mg/dL [facility] Est Glomerular Filtration Rate 95 >=60 mL/min/1. 73 m?? [facility] Comment: This patient's estimated [...] and symptoms in addition to eGFR. Blood 03/07/2022 5:15 AM EDT 03/07/2022 5:19 AM EDT Narrative Resulting Agency Comment Spec In Lab Jorge Deutsch MD CHEMISTRY ORDERABLES Performing Organization Address City/[facility]/ZIP Co de Phone Number [facility] [place] [place] [address] * POCT Glucose (03/07/2022 4:15 AM EDT) Glucose, POC 131 65 - 199 mg/dL [facility] Comment: Supplemental ranges: <140 mg/dL before meals <180 mg/dL all other times of the day Blood 03/07/2022 4:15 AM EDT 03/07/2022 4:15 AM EDT Martir Rios MD POINT OF CARE TEST O RDERABLES [facility] [place] [address] * POCT Glucose (03/06/2022 11:26 PM EDT) Glucose, POC 129 65 - 199 mg/dL [facility] Comment: Supplemental ranges: <140 mg/dL before meals <180 mg/dL all other times of the day Blood 03/06/2022 11:2 6 PM EDT 03/06/2022 11:26 PM EDT Martir Rios MD POINT OF CARE TEST O ALEX Performing Organization Address [facility] Co de Phone Number [facility] [place] [address] * POCT Glucose (03/06/2022 4:11 PM EDT) Glucose, POC 143 65 - 199 mg/dL [facility] Comment: Supplemental ranges: <140 mg/dL before meals <180 mg/dL all other times of the day Blood 03/06/2022 4:11 PM EDT 03/06/2022 4:11 PM EDT Martir Rios MD POINT OF CARE TEST O ALEX Performing Organization Address [facility] de Phone Number [facility] [place] [address] * US Abdomen Limited Hepatology Protocol (03/06/2022 2:54 PM EDT) Anatomical Region Laterality Modality Abdomen Ultrasound 03/06/2022 2:51 PM EDT Impressions 03/06/2022 3:03 PM EDT The spleen appears normal in size and morphology. Thank you for letting us participate in the care of this patient. If you are a health care provider and have any questions regarding this report, please contact the number above. For patients who have questions, please contact the health medication care manager that requested your imaging first. ?Paty Kurtz, Staff Physician Electronically Signed Final Report ?? 03/06/2022 03:02 pm Narrative 03/06/2022 3:03 PM EDT Abdominal ? (Signed Final 03/06/2022 03:02 pm) PATIENT INFO: ID #: ? [id number] ?: ??[birth year] (72 yrs)(Ly) Name: ? KELLY PAZ ? Visit Date: 03/06/2022 02:51 pm ? ECHAUTE PERFORMED BY: Performed By: ? Malorie Gage RDMS Attending: ?Dayana ALEXANDRE, Paty Pabon Referred By: ?MARTIR RIOS Location: ? [place] SERVICE(S) PROVIDED: UABDLIM - Hepatology Protocol - Abdominal ? 14505 Limited Survey Single Organ or Quadrant - [id number] INDICATIONS: r/o splenic sequestration ------- SPLEEN: ------- Size (cm) ?L: ??12.3 ?AP: ??12.2 ?TV: ??4.8 Vol (ml): ?377.1 Comment: ?Normal appearance FLUID COLLECTIONS: No ascites seen. Procedure Note Paty Back MD - 03/06/2022 Abdominal (Signed Final 03/06/2022 03:02 pm) PATIENT INFO: ID #: [id number] : 50 (72 yrs)(M) Name: KELLY PAZ Visit Date: 03/06/2022 02:51 pm ECHAUTE PERFORMED BY: Performed By: Malorie Gage RDMS Attending: Paty Baca MD Referred By: MARTIR RIOS Location: [place] SERVICE(S) PROVIDED: BDLIM - Hepatology Protocol - Abdominal 16226 Limited Survey Single Organ or Quadrant - [id number] INDICATIONS: r/o splenic sequestration ------- SPLEEN: ------- Size (cm) L: 12.3 AP: 12.2 TV: 4.8 Vol (ml): 377.1 Comment: Normal appearance FLUID COLLECTIONS: No ascites seen. IMPRESSION The spleen appears normal in size and morphology. Thank you for letting us participate in the care of this patient. If you are a health care provider and have any questions regarding this report, please contact the number above. For patients who have questions, please contact the health medication care manager that requested your imaging first. Paty Kurtz, Staff Physician Electronically Signed Final Report 03/06/2022 03:02 pm Martir Rios MD IMG US GEN ORDERABLE S * (ABNORMAL) POCT Glucose (03/06/2022 11:51 AM EDT) Glucose, POC 211(H) 65 - 199 mg/dL [facility] Comment: Supplemental ranges: <140 mg/dL before meals <180 mg/dL all other times of the day Blood 03/06/2022 11:5 1 AM EDT 03/06/2022 11:51 AM EDT Martir Rios MD POINT OF CARE TEST O RDERABLES Performing Organization Address City/[facility]/ZIP Co de Phone Number [facility] [place] [address] * POCT Glucose (03/06/2022 7:17 AM EDT) Glucose, POC 171 65 - 199 mg/dL [facility] Comment: Supplemental ranges: <140 mg/dL before meals <180 mg/dL all other times of the day Blood 03/06/2022 7:17 AM EDT 03/06/2022 7:17 AM EDT Martir Rios MD POINT OF CARE TEST O RDERABLES [facility] [place] [address] * POCT Glucose (03/06/2022 4:14 AM EDT) Glucose, POC 171 65 - 199 mg/dL [facility] Comment: Supplemental ranges: <140 mg/dL before meals <180 mg/dL all other times of the day Blood 03/06/2022 4:14 AM EDT 03/06/2022 4:14 AM EDT Martir Rios MD POINT OF CARE TEST O RDERABLES [facility] [place] [address] * (ABNORMAL) Differential, Automated (03/06/2022 3:20 AM EDT) Neutrophil % 65.0 % [facility] Neutrophil Absolute 5.35 1.70 - 6.10 x10(3)/mc L [facility] Lymph % 16.4 % [facility] Lymphocytes Abs 1.4 0.9 - 3.2 x10(3)/ L [facility] Monocyte % 14.8 % [facility] Monocyte Abs 1.2(H) 0.3 - 0.9 x10(3)/ L [facility] Eos % 2.5 % [facility] Eosinophils Abs 0.2 0.0 - 0.4 x10(3)/ L [facility] Basophil % 0.8 % [facility] Baso Absolute 0.1 0.0 - 0.1 x10(3)/ L [facility] Immature Gran % 0.50 % [facility] Comment: Immature granulocytes(IG's)percentage and absolute count will include metamyelocytes, myelocytes, and promyelocytes. Blood smears from CBCs yielding IG's will be scanned manually for concordance. If this scan disagrees with the automated IG or if promyelocytes are noted, a manual differential will be performed. Immature Gran Absolute 0.04 0.00 - 0.04 x10(3)/mc L [facility] Blood 03/06/2022 3:20 AM EDT 03/06/2022 3:48 AM EDT Narrative Resulting Agency Comment Spec In Lab Alfredito Israel MD HEMATOLOGY ORDERABL ES Performing Organization Address City/[facility]/ZIP Co de Phone Number [facility] [place] [address] * (ABNORMAL) Hemogram (03/06/2022 3:20 AM EDT) White Blood Cell 8.2 4.0 - 9.5 x10(3)/mc L [facility] Red Blood Cell 5.18 4.58 - 5.54 x10(6)/mc L [facility] Hemoglobin 15.8 13.7 - 16.5 g/dL [facility] Hematocrit 48.1 40.5 - 48.5 % [facility] Mean Cell Volume 92.9 82.9 - 93.1 fL [facility] Mean Cell Hemoglobin 30.5 27.5 - 32.1 pg [facility] Mean Cell Hemoglobin Concentration 32.8 32.0 - 35.7 g/dL [facility] Platelet 37(L) 145 - 357 x10(3)/mc L [facility] RDW Standard Deviation 46.5(H) 36.0 - 45.0 fL [facility] RDW coefficient of variation 13.7 11.4 - 13.8 % [facility] Mean Platelet Volume 12.7 7.6 - 12.9 fL [facility] NRBC% auto 0.0 % [facility] NRBC Absolute 0.000 0.000 - 0.000 x10(3)/mc L [facility] Blood 03/06/2022 3:20 AM EDT 03/06/2022 3:48 AM EDT Narrative Resulting Agency Comment Spec In Lab Alfredito Israel MD HEMATOLOGY ORDERABL ES [facility] [place] [address] * Magnesium (03/06/2022 3:20 AM EDT) Magnesium 0.74 0.69 - 1.07 mmol/L [facility] Blood 03/06/2022 3:20 AM EDT 03/06/2022 3:48 AM EDT Narrative Resulting Agency Comment Spec In Lab Jorge Deutsch MD CHEMISTRY ORDERABLES [facility] [place] [address] * (ABNORMAL) Basic Metabolic Panel (non-fasting) (03/06/2022 3:20 AM EDT) Glucose 160 65 - 199 mg/dL [facility] Comment:Diabetes: >=200 mg/d L plus symptoms Blood Urea Nitrogen 25(H) 10 - 20 mg/dL [facility] Creatinine 0.87 0.80 - 1.50 mg/dL [facility] Sodium 138 135 - 145 mmol/L [facility] Potassium 4.0 3.5 - 5.0 mmol/L [facility] Comment: Please note: ??Patients with WBC >100,000 may have falsely elevated Potassium levels. ??For accurate Potassium quantification in these patients send serum separator tube (gold top) for subsequent determinations. ??Contact the Clinical Chemistry Laboratory if there are any questions. Chloride 98 98 - 107 mmol/L [facility] Carbon Dioxide 26 22 - 31 mmol/L [facility] Anion Gap 14 5 - 15 mmol/L [facility] Calcium 9.4 8.5 - 10.5 mg/dL [facility] Est Glomerular Filtration Rate 92 >=60 mL/min/1. 73 m?? [facility] Comment: This patient's estimated [...] and symptoms in addition to eGFR. Blood 03/06/2022 3:20 AM EDT 03/06/2022 3:48 AM EDT Narrative Resulting Agency Comment Spec In Lab Jorge Deutsch MD CHEMISTRY ORDERABLES Performing Organization Address City/[facility]/ZIP Co de Phone Number [facility] [place] [address] * POCT Glucose (03/05/2022 11:57 PM EDT) Glucose, POC 131 65 - 199 mg/dL [facility] Comment: Supplemental ranges: <140 mg/dL before meals <180 mg/dL all other times of the day Blood 03/05/2022 11:5 7 PM EDT 03/05/2022 11:57 PM EDT Martir Rios MD POINT OF CARE TEST O RDERABLES Performing Organization Address [facility] Co de Phone Number [facility] [place] [address] * POCT Glucose (03/05/2022 8:06 PM EDT) Glucose, POC 142 65 - 199 mg/dL [facility] Comment: Supplemental ranges: <140 mg/dL before meals <180 mg/dL all other times of the day Blood 03/05/2022 8:06 PM EDT 03/05/2022 8:06 PM EDT Martir Rios MD POINT OF CARE TEST O RDERABLES Performing Organization Address [facility] Co de Phone Number [facility] [place] [address] * Potassium (03/05/2022 4:09 PM EDT) Potassium 3.9 3.5 - 5.0 mmol/L [facility] Comment: Please note: ??Patients with WBC >100,000 may have falsely elevated Potassium levels. ??For accurate Potassium quantification in these patients send serum separator tube (gold top) for subsequent determinations. ??Contact the Clinical Chemistry Laboratory if there are any questions. Blood 03/05/2022 4:09 PM EDT 03/05/2022 4:25 PM EDT Narrative Resulting Agency Comment Spec In Lab Jorge Deutsch MD CHEMISTRY ORDERABLES Performing Organization Address City/[facility]/ZIP Co de Phone Number [facility] [place] [address] * POCT Glucose (03/05/2022 3:39 PM EDT) Glucose, POC 182 65 - 199 mg/dL [facility] Comment: Supplemental ranges: <140 mg/dL before meals <180 mg/dL all other times of the day Blood 03/05/2022 3:39 PM EDT 03/05/2022 3:39 PM EDT Martir Rios MD POINT OF CARE TEST O RDERAJESSIE Performing Organization Address [facility] Co de Phone Number [facility] [place] [address] * POCT Glucose (03/05/2022 11:31 AM EDT) Glucose, POC 180 65 - 199 mg/dL [facility] Comment: Supplemental ranges: <140 mg/dL before meals <180 mg/dL all other times of the day Blood 03/05/2022 11:3 1 AM EDT 03/05/2022 11:31 AM EDT Matrir Rios MD POINT OF CARE TEST O RDERABLES Performing Organization Address City/[facility]/ZIP Co de Phone Number [facility] [place] [address] * (ABNORMAL) Hepatic Function Panel (03/05/2022 9:23 AM EDT) [facility] Protein, Total 7.0 6.1 - 8.0 g/dL [facility] Albumin 4.2 3.2 - 5.2 g/dL [facility] Aspartate Aminotransferase 24 0 - 39 unit/L [facility] Alanine Aminotransferase 25 0 - 55 unit/L [facility] Alkaline Phosphatase 89 40 - 130 unit/L [facility] Bilirubin, Total 1.7(H) 0.2 - 1.3 mg/dL [facility] Bilirubin, Direct 0.4(H) 0.0 - 0.3 mg/dL [facility] Blood Venous Draw / Unknown 03/05/2022 9:23 AM EDT 03/05/2022 9:38 AM EDT Narrative Resulting Agency Comment Spec In Lab Adeola Johnson MD CHEMISTRY ORDERABLES [facility] [place] [address] * (ABNORMAL) pro-Brain Natriuretic Peptide (03/05/2022 9:23 AM EDT) [facility] NT-proBNP 907(H) <=124 pg/mL [facility] Blood Venous Draw / Unknown 03/05/2022 9:23 AM EDT 03/05/2022 9:38 AM EDT Narrative Resulting Agency Comment Spec In Lab Adeola Johnson MD CHEMISTRY ORDERABLES [facility] [place] [address] * Potassium (03/05/2022 9:23 AM EDT) [facility] Potassium 3.8 3.5 - 5.0 mmol/L [facility] Comment: Please note: ??Patients with WBC >100,000 may have falsely elevated Potassium levels. ??For accurate Potassium quantification in these patients send serum separator tube (gold top) for subsequent determinations. ??Contact the Clinical Chemistry Laboratory if there are any questions. Blood 03/05/2022 9:23 AM EDT 03/05/2022 9:37 AM EDT Narrative Resulting Agency Comment Spec In Lab Jorge Deutsch MD CHEMISTRY ORDERABLES Performing Organization Address [facility] Co de Phone Number [facility] [place] [address] * POCT Glucose (03/05/2022 7:16 AM EDT) [facility] Glucose, POC 194 65 - 199 mg/dL [facility] Comment: Supplemental ranges: <140 mg/dL before meals <180 mg/dL all other times of the day Blood 03/05/2022 7:16 AM EDT 03/05/2022 7:16 AM EDT Martir Rios MD POINT OF CARE TEST O RDERABLES Performing Organization Address [facility] Co de Phone Number [facility] [place] [address] * Scan, Peripheral Blood (03/05/2022 4:23 AM EDT) [facility] Plat estimate Decreased [facility] RBC Morphology Normal [facility] Blood 03/05/2022 4:23 AM EDT 03/05/2022 4:34 AM EDT Narrative Resulting Agency Comment Spec In Lab Alfredito Israel MD HEMATOLOGY ORDERABL ES Performing Organization Address [facility] Co de Phone Number [facility] [place] [address] * (ABNORMAL) Differential, Automated (03/05/2022 4:23 AM EDT) [facility] Neutrophil % 70.6 % [facility] Neutrophil Absolute 6.27(H) 1.70 - 6.10 x10(3)/mc L [facility] Lymph % 12.1 % [facility] Lymphocytes Abs 1.1 0.9 - 3.2 x10(3)/[facility] Monocyte % 14.4 % [facility] Monocyte Abs 1.3(H) 0.3 - 0.9 x10(3)/[facility] Eos % 1.8 % [facility] Eosinophils Abs 0.2 0.0 - 0.4 x10(3)/[facility] Basophil % 0.7 % [facility] Baso Absolute 0.1 0.0 - 0.1 x10(3)/[facility] Immature Gran % 0.40 % [facility] Comment: Immature granulocytes(IG's)percentage and absolute count will include metamyelocytes, myelocytes, and promyelocytes. Blood smears from CBCs yielding IG's will be scanned manually for concordance. If this scan disagrees with the automated IG or if promyelocytes are noted, a manual differential will be performed. Immature Gran Absolute 0.04 0.00 - 0.04 x10(3)/[facility] Blood 03/05/2022 4:23 AM EDT 03/05/2022 4:34 AM EDT Narrative Resulting Agency Comment Spec In Lab Alfredito Israel MD HEMATOLOGY ORDERABL ES [facility] [place] [address] * (ABNORMAL) Hemogram (03/05/2022 4:23 AM EDT) White Blood Cell 8.9 4.0 - 9.5 x10(3)/[facility] Red Blood Cell 4.89 4.58 - 5.54 x10(6)/[facility] Hemoglobin 15.0 13.7 - 16.5 g/dL [facility] Hematocrit 44.5 40.5 - 48.5 % [facility] Mean Cell Volume 91.0 82.9 - 93.1 fL [facility] Mean Cell Hemoglobin 30.7 27.5 - 32.1 pg [facility] Mean Cell Hemoglobin Concentration 33.7 32.0 - 35.7 g/dL [facility] Platelet 49(L) 145 - 357 x10(3)/mc L [facility] RDW Standard Deviation 45.2(H) 36.0 - 45.0 [facility] RDW coefficient of variation 13.5 11.4 - 13.8 % [facility] Mean Platelet Volume 12.4 7.6 - 12.9 [facility] NRBC% auto 0.0 % [facility] NRBC Absolute 0.000 0.000 - 0.000 x10(3)/mc L [facility] Blood 03/05/2022 4:23 AM EDT 03/05/2022 4:34 AM EDT Narrative Resulting Agency Comment Spec In Lab Alfredito Israel MD HEMATOLOGY ORDERABL ES Performing Organization Address [facility] Co de Phone Number [facility] [place] [address] * Magnesium (03/05/2022 4:23 AM EDT) Magnesium 0.76 0.69 - 1.07 mmol/L [facility] Blood 03/05/2022 4:23 AM EDT 03/05/2022 4:34 AM EDT Narrative Resulting Agency Comment Spec In Lab Jorge Deutsch MD CHEMISTRY ORDERABLES Performing Organization Address [facility] Co de Phone Number [facility] [place] [address] * (ABNORMAL) Basic Metabolic Panel (non-fasting) (03/05/2022 4:23 AM EDT) Glucose 206(H) 65 - 199 mg/dL [facility] Comment:Diabetes: >=200 mg/d L plus symptoms Blood Urea Nitrogen 24(H) 10 - 20 mg/dL [facility] Creatinine 0.90 0.80 - 1.50 mg/dL [facility] Sodium 136 135 - 145 mmol/L [facility] Potassium 3.6 3.5 - 5.0 mmol/L [facility] Comment: Please note: ??Patients with WBC >100,000 may have falsely elevated Potassium levels. ??For accurate Potassium quantification in these patients send serum separator tube (gold top) for subsequent determinations. ??Contact the Clinical Chemistry Laboratory if there are any questions. Chloride 95(L) 98 - 107 mmol/L [facility] Carbon Dioxide 26 22 - 31 mmol/L [facility] Anion Gap 15 5 - 15 mmol/L [facility] Calcium 9.5 8.5 - 10.5 mg/dL [facility] Est Glomerular Filtration Rate 91 >=60 mL/min/1. 73 m?? [facility] Comment: This patient's estimated [...] and symptoms in addition to eGFR. Blood 03/05/2022 4:23 AM EDT 03/05/2022 4:34 AM EDT Narrative Resulting Agency Comment Spec In Lab Jorge Deutsch MD CHEMISTRY ORDERABLES [facility] [place] [address] * POCT Glucose (03/05/2022 4:20 AM EDT) Glucose, POC 190 65 - 199 mg/dL [facility] Comment: Supplemental ranges: <140 mg/dL before meals <180 mg/dL all other times of the day Blood 03/05/2022 4:20 AM EDT 03/05/2022 4:20 AM EDT Martir Rios MD POINT OF CARE TEST O RDERABLES [facility] [place] [address] * POCT Glucose (03/04/2022 11:47 PM EDT) Glucose, POC 152 65 - 199 mg/dL [facility] Comment: Supplemental ranges: <140 mg/dL before meals <180 mg/dL all other times of the day Blood 03/04/2022 11:4 7 PM EDT 03/04/2022 11:47 PM EDT Martir Rios MD POINT OF CARE TEST O RDERABLES Performing Organization Address City/[facility]/ZIP Co de Phone Number [facility] [place] [address] * POCT Glucose (03/04/2022 8:17 PM EDT) Glucose, POC 131 65 - 199 mg/dL [facility] Comment: Supplemental ranges: <140 mg/dL before meals <180 mg/dL all other times of the day Blood 03/04/2022 8:17 PM EDT 03/04/2022 8:17 PM EDT Martir Rios MD POINT OF CARE TEST O RDERABLES [facility] [place] [address] * POCT Glucose (03/04/2022 4:22 PM EDT) Glucose, POC 149 65 - 199 mg/dL [facility] Comment: Supplemental ranges: <140 mg/dL before meals <180 mg/dL all other times of the day Blood 03/04/2022 4:22 PM EDT 03/04/2022 4:22 PM EDT Martir Rios MD POINT OF CARE TEST O RDERAJESSIE Performing Organization Address City/[facility]/ZIP Co de Phone Number [facility] [place] [address] * (ABNORMAL) POCT Glucose (03/04/2022 11:21 AM EDT) Glucose, POC 204(H) 65 - 199 mg/dL [facility] Comment: Supplemental ranges: <140 mg/dL before meals <180 mg/dL all other times of the day Blood 03/04/2022 11:2 1 AM EDT 03/04/2022 11:21 AM EDT Martir Rios MD POINT OF CARE TEST O STEPHANIEERAJESSIE Performing Organization Address [facility] Co de Phone Number [facility] [place] [address] * POCT Glucose (03/04/2022 7:44 AM EDT) Glucose, POC 165 65 - 199 mg/dL [facility] Comment: Supplemental ranges: <140 mg/dL before meals <180 mg/dL all other times of the day Blood 03/04/2022 7:44 AM EDT 03/04/2022 7:44 AM EDT Martir Rios MD POINT OF CARE TEST O RDERAJESSIE Performing Organization Address City/[facility] Co de Phone Number [facility] [place] [address] * POCT Glucose (03/04/2022 5:25 AM EDT) Glucose, POC 138 65 - 199 mg/dL [facility] Comment: Supplemental ranges: <140 mg/dL before meals <180 mg/dL all other times of the day Blood 03/04/2022 5:25 AM EDT 03/04/2022 5:25 AM EDT Martir Rios MD POINT OF CARE TEST O RDERABLES Performing Organization Address City/[facility]/ZIP Co de Phone Number [facility] [place] [address] * POCT Glucose (03/04/2022 4:17 AM EDT) Glucose, POC 129 65 - 199 mg/dL [facility] Comment: Supplemental ranges: <140 mg/dL before meals <180 mg/dL all other times of the day Blood 03/04/2022 4:17 AM EDT 03/04/2022 4:17 AM EDT Martir Rios MD POINT OF CARE TEST O RDERABLES Performing Organization Address City/[facility]/ZIP Co de Phone Number [facility] [place] [address] * (ABNORMAL) Differential, Automated (03/04/2022 4:07 AM EDT) Neutrophil % 66.2 % [facility] Neutrophil Absolute 5.87 1.70 - 6.10 x10(3)/mc L [facility] Lymph % 16.6 % [facility] Lymphocytes Abs 1.5 0.9 - 3.2 x10(3)/mc L [facility] Monocyte % 13.8 % [facility] Monocyte Abs 1.2(H) 0.3 - 0.9 x10(3)/mc L [facility] Eos % 2.3 % [facility] Eosinophils Abs 0.2 0.0 - 0.4 x10(3)/mc L [facility] Basophil % 0.8 % [facility] Baso Absolute 0.1 0.0 - 0.1 x10(3)/mc L [facility] Immature Gran % 0.30 % [facility] Comment: Immature granulocytes(IG's)percentage and absolute count will include metamyelocytes, myelocytes, and promyelocytes. Blood smears from CBCs yielding IG's will be scanned manually for concordance. If this scan disagrees with the automated IG or if promyelocytes are noted, a manual differential will be performed. Immature Gran Absolute 0.03 0.00 - 0.04 x10(3)/ L [facility] Blood 03/04/2022 4:07 AM EDT 03/04/2022 4:34 AM EDT Narrative Resulting Agency Comment Spec In Lab Alfredito Israel MD HEMATOLOGY ORDERABL ES [facility] [place] [address] * (ABNORMAL) Hemogram (03/04/2022 4:07 AM EDT) White Blood Cell 8.9 4.0 - 9.5 x10(3)/ L [facility] Red Blood Cell 4.34(L) 4.58 - 5.54 x10(6)/mc L [facility] Hemoglobin 13.2(L) 13.7 - 16.5 g/dL [facility] Hematocrit 40.2(L) 40.5 - 48.5 % [facility] Mean Cell Volume 92.6 82.9 - 93.1 fL [facility] Mean Cell Hemoglobin 30.4 27.5 - 32.1 pg [facility] Mean Cell Hemoglobin Concentration 32.8 32.0 - 35.7 g/dL [facility] Platelet 56(L) 145 - 357 x10(3)/ L [facility] RDW Standard Deviation 46.7(H) 36.0 - 45.0 fL [facility] RDW coefficient of variation 13.8 11.4 - 13.8 % [facility] Mean Platelet Volume 12.7 7.6 - 12.9 fL [facility] NRBC% auto 0.0 % [facility] NRBC Absolute 0.000 0.000 - 0.000 x10(3)/mc L [facility] Blood 03/04/2022 4:07 AM EDT 03/04/2022 4:34 AM EDT Narrative Resulting Agency Comment Spec In Lab Alfredito Israel MD HEMATOLOGY ORDERABL ES Performing Organization Address [facility]/ZIP Co de Phone Number [facility] [place] [address] * Magnesium (03/04/2022 4:07 AM EDT) Magnesium 0.73 0.69 - 1.07 mmol/L [facility] Blood 03/04/2022 4:07 AM EDT 03/04/2022 4:34 AM EDT Narrative Resulting Agency Comment Spec In Lab Jorge Deutsch MD CHEMISTRY ORDERABLES Performing Organization Address [facility] Co de Phone Number [facility] [place] [address] * (ABNORMAL) Basic Metabolic Panel (non-fasting) (03/04/2022 4:07 AM EDT) Glucose 158 65 - 199 mg/dL [facility] Comment:Diabetes: >=200 mg/d L plus symptoms Blood Urea Nitrogen 24(H) 10 - 20 mg/dL [facility] Creatinine 0.90 0.80 - 1.50 mg/dL [facility] Sodium 138 135 - 145 mmol/L [facility] Potassium 3.7 3.5 - 5.0 mmol/L [facility] Comment: Please note: ??Patients with WBC >100,000 may have falsely elevated Potassium levels. ??For accurate Potassium quantification in these patients send serum separator tube (gold top) for subsequent determinations. ??Contact the Clinical Chemistry Laboratory if there are any questions. Chloride 97(L) 98 - 107 mmol/L [facility] Carbon Dioxide 26 22 - 31 mmol/L [facility] Anion Gap 15 5 - 15 mmol/L [facility] Calcium 9.3 8.5 - 10.5 mg/dL [facility] Est Glomerular Filtration Rate 91 >=60 mL/min/1. 73 m?? [facility] Comment: This patient's estimated [...] and symptoms in addition to eGFR. Blood 03/04/2022 4:07 AM EDT 03/04/2022 4:34 AM EDT Narrative Resulting Agency Comment Spec In Lab Jorge Deutsch MD CHEMISTRY ORDERABLES Performing Organization Address [facility]/ZIP Co de Phone Number [facility] [place] [address] * POCT Glucose (03/04/2022 12:14 AM EDT) Glucose, POC 149 65 - 199 mg/dL [facility] Comment: Supplemental ranges: <140 mg/dL before meals <180 mg/dL all other times of the day Blood 03/04/2022 12:1 4 AM EDT 03/04/2022 12:14 AM EDT Martir Rios MD POINT OF CARE TEST O RDERABLES Performing Organization Address City/[facility]/ZIP Co de Phone Number [facility] [place] [address] * POCT Glucose (03/03/2022 7:59 PM EDT) Glucose, POC 128 65 - 199 mg/dL [facility] Comment: Supplemental ranges: <140 mg/dL before meals <180 mg/dL all other times of the day Blood 03/03/2022 7:59 PM EDT 03/03/2022 7:59 PM EDT Martir Rios MD POINT OF CARE TEST O RDERABLES Performing Organization Address [facility] Co de Phone Number [facility] [place] [address] * Potassium (03/03/2022 4:24 PM EDT) Potassium 4.3 3.5 - 5.0 mmol/L [facility] Comment: Please note: ??Patients with WBC >100,000 may have falsely elevated Potassium levels. ??For accurate Potassium quantification in these patients send serum separator tube (gold top) for subsequent determinations. ??Contact the Clinical Chemistry Laboratory if there are any questions. Blood Venous Draw / Unknown 03/03/2022 4:24 PM EDT 03/03/2022 4:33 PM EDT Narrative Resulting Agency Comment Spec In Lab Chris Monte Jr., MD CHEMISTRY ORDERAB LES Performing Organization Address [facility] Co de Phone Number [facility] [place] [address] * (ABNORMAL) Fibrinogen (03/03/2022 4:24 PM EDT) Fibrinogen 553(H) 200 - 393 mg/dL [facility] Comment: A fibrinogen level >100 mg/dL is adequate for hemostasis in most patients without underlying bleeding disorders. Blood 03/03/2022 4:24 PM EDT 03/03/2022 4:29 PM EDT Narrative Resulting Agency Comment Spec In Lab Martir Rios MD HEMATOLOGY ORDERABLE S Performing Organization Address [facility] Co de Phone Number [facility] [place] [address] * Haptoglobin (03/03/2022 4:24 PM EDT) Haptoglobin 164 30 - 200 mg/dL [facility] Comment: Haptoglobin concentrations in newborns is low to undetectable; however, adult concentrations are usually attained by 4 months of age. ??No sex-related differences for haptoglobin have been detected. Blood 03/03/2022 4:24 PM EDT 03/03/2022 4:29 PM EDT Narrative Resulting Agency Comment Spec In Lab Martir Rios MD CHEMISTRY ORDERABLES Performing Organization Address [facility] Co de Phone Number [facility] [place] [address] * (ABNORMAL) Lactate Dehydrogenase (03/03/2022 4:24 PM EDT) Lactate Dehydrogenase 239(H) 110 - 220 unit/L [facility] Blood 03/03/2022 4:24 PM EDT 03/03/2022 4:29 PM EDT Narrative Resulting Agency Comment Spec In Lab Martir Rios MD CHEMISTRY ORDERABLES Performing Organization Address [facility] Co de Phone Number [facility] [place] [address] * (ABNORMAL) Platelet count (03/03/2022 4:24 PM EDT) Platelet 66(L) 145 - 357 x10(3)/mc L [facility] Immature Plt % 7.3 0.0 - 7.4 % [facility] Comment: Limitation of the Immature Platelet Fraction (IPF)-May be less reliable when the platelet count is less than 31r085/uL due to statistical imprecision. The IPF value provides an assessment of the Bone Marrow production status. ??It is useful in differentiating Thrombocytopenia caused by platelet destruction/consumption versus decreased production. It also helps to determine the imminent release of platelets and can be therefore a helpful parameter in Chemotherapy and Bone marrow transplant patients. ELEVATED IPF value: ?? When the bone marrow is in a state of over production such as when increased destruction and consumption are the underlying issue. ?? When the marrow is recovering post chemotherapy or bone marrow transplant. LOW to NORMAL IPF value: ?? When the bone marrow in not responding and is in a decreased state of production. References: [employer] The Clinical Value of the Immature Platelet Fraction (IPF) in Cell Recovery Document Number [id number] 01/2011 [employer] The Role of the Immature Platelet Fraction (IPF) in the Differential Diagnosis of Thrombocytopenia, Document [id number] V05 P001/13 Blood 03/03/2022 4:24 PM EDT 03/03/2022 4:29 PM EDT Narrative Resulting Agency Comment Spec In Lab Martir Rios MD HEMATOLOGY ORDERABLE S Performing Organization Address City/[facility]/ZIP Co de Phone Number [facility] [place] [address] * POCT Glucose (03/03/2022 4:21 PM EDT) [facility] Glucose, POC 157 65 - 199 mg/dL [facility] Comment: Supplemental ranges: <140 mg/dL before meals <180 mg/dL all other times of the day Blood 03/03/2022 4:21 PM EDT 03/03/2022 4:21 PM EDT Martir Rios MD POINT OF CARE TEST O RDERABLES Performing Organization Address [facility]/ZIP Co de Phone Number [facility] [place] [address] * Smear Review Report (03/03/2022 1:09 PM EDT) [facility] Smear Review Report [id number] ? Location: CSCU; C434; B The signing pathologist has (i) examined the relevant preparation(s) for the specimen(s) and (ii) rendered or confirmed the diagnosis(es). . ? Smear Review DIAGNOSIS thrombocytopenia. ??No diagnostic morphologic pathology. ?? _ Electronically signed by: ?Martin Nicole MD Verified: ??03/06/2022 18:00 ??Hematopathologist Performed at: [place] [place], [place], [place] DISCUSSION The etiology of thrombocytopenia is not clear from review of this blood smear. Isolated thrombocytopenia can be seen in autoimmune or drug-mediated immune destructive process, nutritional deficiencies, toxic exposures (e.g., alcohol), liver disease, viral infection or splenic sequestration. Evaluation of immature platelet fraction (obtained by ordering a platelet ??count) helps in diagnosis as an increased value suggests a peripheral destructive process while a decreased value suggests a platelet synthetic abnormality. ADDITIONAL STUDIES See e-DH: LAB and PATHOLOGY, Lab Results, CBC and manual differential. CLINICAL INFORMATION . [facility] 03/03/2022 1:09 PM EDT Terri Tomlinson MD HEMATOLOGY ORDERABLE S Performing Organization Address [facility] Co de Phone Number [facility] [place] [address] * Scan, Peripheral Blood (03/03/2022 12:36 PM EDT) Plat estimate Decreased [facility] RBC Morphology Abnormal [facility] Momo Cells 1-5 /HPF [facility] Blood 03/03/2022 12:3 6 PM EDT 03/03/2022 12:42 PM EDT Narrative Resulting Agency Comment Spec In Lab Terri Tomlinson MD HEMATOLOGY ORDERABLE S Performing Organization Address [facility]/ZIP Co de [place] [address] * (ABNORMAL) Differential, Automated (03/03/2022 12:36 PM EDT) Pathologist [facility] Neutrophil % 66.7 % [facility] Neutrophil Absolute 5.93 1.70 - 6.10 x10(3)/ L [facility] Lymph % 16.5 % [facility] Lymphocytes Abs 1.5 0.9 - 3.2 x10(3)/[facility] Monocyte % 13.0 % [facility] Monocyte Abs 1.2(H) 0.3 - 0.9 x10(3)/[facility] Eos % 2.6 % [facility] Eosinophils Abs 0.2 0.0 - 0.4 x10(3)/[facility] Basophil % 0.8 % [facility] Baso Absolute 0.1 0.0 - 0.1 x10(3)/[facility] Immature Gran % 0.40 % [facility] Comment: Immature granulocytes(IG's)percentage and absolute count will include metamyelocytes, myelocytes, and promyelocytes. Blood smears from CBCs yielding IG's will be scanned manually for concordance. If this scan disagrees with the automated IG or if promyelocytes are noted, a manual differential will be performed. Immature Gran Absolute 0.04 0.00 - 0.04 x10(3)/ L [facility] Blood 03/03/2022 12:3 6 PM EDT 03/03/2022 12:42 PM EDT Narrative Resulting Agency Comment Spec In Lab Terri Tomlinson MD HEMATOLOGY ORDERABLE S [facility] [place] [address] * (ABNORMAL) Hemogram (03/03/2022 12:36 PM EDT) [facility] White Blood Cell 8.9 4.0 - 9.5 x10(3)/ L [facility] Red Blood Cell 4.42(L) 4.58 - 5.54 x10(6)/mc L [facility] Hemoglobin 13.7 13.7 - 16.5 g/dL [facility] Hematocrit 42.3 40.5 - 48.5 % [facility] Mean Cell Volume 95.7(H) 82.9 - 93.1 fL [facility] Mean Cell Hemoglobin 31.0 27.5 - 32.1 pg [facility] Mean Cell Hemoglobin Concentration 32.4 32.0 - 35.7 g/dL [facility] Platelet 69(L) 145 - 357 x10(3)/ L [facility] RDW Standard Deviation 49.0(H) 36.0 - 45.0 [facility] RDW coefficient of variation 13.9(H) 11.4 - 13.8 % [facility] Mean Platelet Volume 12.4 7.6 - 12.9 [facility] NRBC% auto 0.0 % [facility] NRBC Absolute 0.000 0.000 - 0.000 x10(3)/[facility] Blood 03/03/2022 12:3 6 PM EDT 03/03/2022 12:42 PM EDT Narrative Resulting Agency Comment Spec In Lab Terri Tomlinson MD HEMATOLOGY ORDERABLE S [facility] [place] [address] * (ABNORMAL) APTT (03/03/2022 12:36 PM EDT) Partial Thromboplastin Time 46(H) 25 - 37 sec [facility] Comment: The PTT is NOT appropriate for heparin monitoring. Use the Anti-Xa level for heparin monitoring (HEP UFH) or LMWH monitoring (HEP LMW). A PTT less than 37 seconds generally indicates adequate hemostasis. Blood 03/03/2022 12:3 6 PM EDT 03/03/2022 12:42 PM EDT Narrative Resulting Agency Comment Spec In Lab Martir Rios MD HEMATOLOGY ORDERABLE S Performing Organization Address City/[facility]/ZIP Co de Phone Number [facility] [place] [address] * (ABNORMAL) Prothrombin Time (03/03/2022 12:36 PM EDT) Prothrombin Time 22.5(H) 9.4 - 12.5 sec [facility] International Normalization Ratio 2.0 [facility] Comment: An INR <2.0 indicates adequate procoagulant activity for hemostasis in most patients without underlying bleeding disorders, though the INR may not adequately reflect hemostatic capacity in patients with liver disease and synthetic impairment. The recommended target INR range for therapeutic anticoagulation is 2.0 ? 3.0 for most applications, though lower and higher ranges may be appropriate depending on clinical circumstances. Blood 03/03/2022 12:3 6 PM EDT 03/03/2022 12:42 PM EDT Narrative Resulting Agency Comment Spec In Lab Martir Rios MD HEMATOLOGY ORDERABLE S Performing Organization Address [facility]/ZIP Co de Phone Number [facility] [place] [address] * Peripheral Smear Review (03/03/2022 12:36 PM EDT) Peripheral Smear Review See Comment [facility] Comment: When completed by the Pathologist, report [id number] will display under Hematopathology Reports. Blood 03/03/2022 12:3 6 PM EDT 03/03/2022 12:42 PM EDT Narrative Resulting Agency Comment Spec In Lab Martir Rios MD HEMATOLOGY ORDERABLE S [facility] [place] [address] * POCT Glucose (03/03/2022 11:37 AM EDT) Glucose, POC 184 65 - 199 mg/dL [facility] Comment: Supplemental ranges: <140 mg/dL before meals <180 mg/dL all other times of the day Blood 03/03/2022 11:3 7 AM EDT 03/03/2022 11:37 AM EDT Martir Rios MD POINT OF CARE TEST O RDERABLES Performing Organization Address City/[facility]/ZIP Co de Phone Number [facility] [place] [address] * (ABNORMAL) pro-Brain Natriuretic Peptide (03/03/2022 11:00 AM EDT) NT-proBNP 680(H) <=124 pg/mL [facility] Blood Venous Draw / Unknown 03/03/2022 11:00 AM EDT 03/03/2022 11:21 AM EDT Narrative Resulting Agency Comment Spec In Lab Terri Tomlinson MD CHEMISTRY ORDERABLES Performing Organization Address [facility] Co de Phone Number [facility] [place] [address] * Potassium (03/03/2022 11:00 AM EDT) Pathologist [facility] Potassium 4.3 3.5 - 5.0 mmol/L [facility] Comment: Please note: ??Patients with WBC >100,000 may have falsely elevated Potassium levels. ??For accurate Potassium quantification in these patients send serum separator tube (gold top) for subsequent determinations. ??Contact the Clinical Chemistry Laboratory if there are any questions. Blood 03/03/2022 11:0 0 AM EDT 03/03/2022 11:10 AM EDT Narrative Resulting Agency Comment Spec In Lab Jorge Deutsch MD CHEMISTRY ORDERABLES Performing Organization Address City/[facility]/ZIP Co de Phone Number [facility] [place] [address] * Electrolytes panel (03/03/2022 11:00 AM EDT) [facility] Sodium 135 135 - 145 mmol/L [facility] Potassium 4.3 3.5 - 5.0 mmol/L [facility] Comment: Please note: ??Patients with WBC >100,000 may have falsely elevated Potassium levels. ??For accurate Potassium quantification in these patients send serum separator tube (gold top) for subsequent determinations. ??Contact the Clinical Chemistry Laboratory if there are any questions. Chloride 101 98 - 107 mmol/L [facility] Carbon Dioxide 26 22 - 31 mmol/L [facility] Anion Gap 8 5 - 15 mmol/L [facility] Blood 03/03/2022 11:0 0 AM EDT 03/03/2022 11:10 AM EDT Narrative Resulting Agency Comment Spec In Lab Jorge Deutsch MD CHEMISTRY ORDERABLES Performing Organization Address City/[facility]/ZIP Co de Phone Number [facility] [place] [address] * (ABNORMAL) POCT Glucose (03/03/2022 8:11 AM EDT) [facility] Glucose, POC 223(H) 65 - 199 mg/dL [facility] Comment: Supplemental ranges: <140 mg/dL before meals <180 mg/dL all other times of the day Blood 03/03/2022 8:11 AM EDT 03/03/2022 8:11 AM EDT Martir Rios MD POINT OF CARE TEST O RDERABLES [facility] [place] [address] * (ABNORMAL) Differential, Automated (03/03/2022 4:06 AM EDT) [facility] Neutrophil % 64.6 % [facility] Neutrophil Absolute 5.85 1.70 - 6.10 x10(3)/[facility] Lymph % 16.5 % [facility] Lymphocytes Abs 1.5 0.9 - 3.2 x10(3)/[facility] Monocyte % 14.8 % [facility] Monocyte Abs 1.3(H) 0.3 - 0.9 x10(3)/[facility] Eos % 2.8 % [facility] Eosinophils Abs 0.2 0.0 - 0.4 x10(3)/[facility] Basophil % 0.9 % [facility] Baso Absolute 0.1 0.0 - 0.1 x10(3)/[facility] Immature Gran % 0.40 % [facility] Comment: Immature granulocytes(IG's)percentage and absolute count will include metamyelocytes, myelocytes, and promyelocytes. Blood smears from CBCs yielding IG's will be scanned manually for concordance. If this scan disagrees with the automated IG or if promyelocytes are noted, a manual differential will be performed. Immature Gran Absolute 0.04 0.00 - 0.04 x10(3)/[facility] Blood 03/03/2022 4:06 AM EDT 03/03/2022 4:34 AM EDT Narrative Resulting Agency Comment Spec In Lab Alfredito Israel MD HEMATOLOGY ORDERABL ES [facility] [place] [address] * (ABNORMAL) Hemogram (03/03/2022 4:06 AM EDT) White Blood Cell 9.0 4.0 - 9.5 x10(3)/[facility] Red Blood Cell 4.24(L) 4.58 - 5.54 x10(6)/[facility] Hemoglobin 13.0(L) 13.7 - 16.5 g/dL [facility] Hematocrit 39.9(L) 40.5 - 48.5 % [facility] Mean Cell Volume 94.1(H) 82.9 - 93.1 fL [facility] Mean Cell Hemoglobin 30.7 27.5 - 32.1 pg [facility] Mean Cell Hemoglobin Concentration 32.6 32.0 - 35.7 g/dL [facility] Platelet 68(L) 145 - 357 x10(3)/mc L [facility] RDW Standard Deviation 47.4(H) 36.0 - 45.0 fL [facility] RDW coefficient of variation 13.9(H) 11.4 - 13.8 % [facility] Mean Platelet Volume 12.4 7.6 - 12.9 [facility] NRBC% auto 0.0 % [facility] NRBC Absolute 0.000 0.000 - 0.000 x10(3)/mc L [facility] Blood 03/03/2022 4:06 AM EDT 03/03/2022 4:34 AM EDT Narrative Resulting Agency Comment Spec In Lab Alfredito Israel MD HEMATOLOGY ORDERABL ES Performing Organization Address City/[facility]/ZIP Co de Phone Number [facility] [place] [address] * Magnesium (03/03/2022 4:06 AM EDT) Magnesium 0.82 0.69 - 1.07 mmol/L [facility] Blood 03/03/2022 4:06 AM EDT 03/03/2022 4:34 AM EDT Narrative Resulting Agency Comment Spec In Lab Jorge Deutsch MD CHEMISTRY ORDERABLES Performing Organization Address City/[facility]/ZIP Co de Phone Number [facility] [place] [address] * (ABNORMAL) Basic Metabolic Panel (non-fasting) (03/03/2022 4:06 AM EDT) Glucose 138 65 - 199 mg/dL [facility] Comment:Diabetes: >=200 mg/d L plus symptoms Blood Urea Nitrogen 22(H) 10 - 20 mg/dL [facility] Creatinine 0.80 0.80 - 1.50 mg/dL [facility] Sodium 137 135 - 145 mmol/L [facility] Potassium 3.7 3.5 - 5.0 mmol/L [facility] Comment: Please note: ??Patients with WBC >100,000 may have falsely elevated Potassium levels. ??For accurate Potassium quantification in these patients send serum separator tube (gold top) for subsequent determinations. ??Contact the Clinical Chemistry Laboratory if there are any questions. Chloride 100 98 - 107 mmol/L [facility] Carbon Dioxide 25 22 - 31 mmol/L [facility] Anion Gap 12 5 - 15 mmol/L [facility] Calcium 8.8 8.5 - 10.5 mg/dL [facility] Est Glomerular Filtration Rate 94 >=60 mL/min/1. 73 m?? [facility] Comment: This patient's estimated [...] and symptoms in addition to eGFR. Blood 03/03/2022 4:06 AM EDT 03/03/2022 4:34 AM EDT Narrative Resulting Agency Comment Spec In Lab Jorge Deutsch MD CHEMISTRY ORDERABLES [facility] [place] [address] * POCT Glucose (03/03/2022 4:04 AM EDT) Glucose, POC 131 65 - 199 mg/dL [facility] Comment: Supplemental ranges: <140 mg/dL before meals <180 mg/dL all other times of the day Blood 03/03/2022 4:04 AM EDT 03/03/2022 4:04 AM EDT Martir Rios MD POINT OF CARE TEST O RDERAJESSIE [facility] [place] [address] * POCT Glucose (03/03/2022 12:33 AM EDT) Glucose, POC 120 65 - 199 mg/dL [facility] Comment: Supplemental ranges: <140 mg/dL before meals <180 mg/dL all other times of the day Blood 03/03/2022 12:3 3 AM EDT 03/03/2022 12:33 AM EDT Martir Rios MD POINT OF CARE TEST O ALEX [facility] [place] [address] * POCT Glucose (03/02/2022 8:32 PM EDT) Glucose, POC 132 65 - 199 mg/dL [facility] Comment: Supplemental ranges: <140 mg/dL before meals <180 mg/dL all other times of the day Blood 03/02/2022 8:32 PM EDT 03/02/2022 8:32 PM EDT Martir Rios MD POINT OF CARE TEST O RDERABLES [facility] [place] [address] * Potassium (03/02/2022 5:05 PM EDT) Potassium 4.1 3.5 - 5.0 mmol/L [facility] Comment: Please note: ??Patients with WBC >100,000 may have falsely elevated Potassium levels. ??For accurate Potassium quantification in these patients send serum separator tube (gold top) for subsequent determinations. ??Contact the Clinical Chemistry Laboratory if there are any questions. Blood 03/02/2022 5:05 PM EDT 03/02/2022 5:13 PM EDT Narrative Resulting Agency Comment Spec In Lab Jorge Deutsch MD CHEMISTRY ORDERABLES Performing Organization Address [facility]/ZIP Co de Phone Number [facility] [place] [address] * POCT Glucose (03/02/2022 4:49 PM EDT) Glucose, POC 151 65 - 199 mg/dL [facility] Comment: Supplemental ranges: <140 mg/dL before meals <180 mg/dL all other times of the day Blood 03/02/2022 4:49 PM EDT 03/02/2022 4:49 PM EDT Martir Rios MD POINT OF CARE TEST O ALEX Performing Organization Address [facility]/ZIP Co de Phone Number [facility] [place] [address] * POCT Glucose (03/02/2022 1:26 PM EDT) Glucose, POC 168 65 - 199 mg/dL [facility] Comment: Supplemental ranges: <140 mg/dL before meals <180 mg/dL all other times of the day Blood 03/02/2022 1:26 PM EDT 03/02/2022 1:26 PM EDT Martir Rios MD POINT OF CARE TEST O ALEX Performing Organization Address City/[facility]/ZIP Co de Phone Number [facility] [place] [address] * Electrolytes panel (03/02/2022 1:25 PM EDT) [facility] Sodium 140 135 - 145 mmol/L [facility] Potassium 3.7 3.5 - 5.0 mmol/L [facility] Comment: Please note: ??Patients with WBC >100,000 may have falsely elevated Potassium levels. ??For accurate Potassium quantification in these patients send serum separator tube (gold top) for subsequent determinations. ??Contact the Clinical Chemistry Laboratory if there are any questions. Chloride 101 98 - 107 mmol/L [facility] Carbon Dioxide 28 22 - 31 mmol/L [facility] Anion Gap 11 5 - 15 mmol/L [facility] Blood 03/02/2022 1:25 PM EDT 03/02/2022 1:47 PM EDT Narrative Resulting Agency Comment Spec In Lab Jorge Deutsch MD CHEMISTRY ORDERABLES Performing Organization Address [facility] Co de Phone Number [facility] [place] [address] * (ABNORMAL) POCT Glucose (03/02/2022 12:08 PM EDT) [facility] Glucose, POC 285(H) 65 - 199 mg/dL [facility] Comment: Supplemental ranges: <140 mg/dL before meals <180 mg/dL all other times of the day Blood 03/02/2022 12:0 8 PM EDT 03/02/2022 12:08 PM EDT Martir Rios MD POINT OF CARE TEST O RDERABLES Performing Organization Address City/[facility]/ZIP Co de Phone Number [facility] [place] [address] * ECHO LMTD W/O CONTRAST W LMTD SPEC DOPP COLOR DOPP (03/02/2022 11:24 AM EDT) EF 45 [facility] SYSTEM Anatomical Region Laterality Modality Cardiac Other 03/02/2022 10:4 3 AM EDT Narrative 03/02/2022 12:41 PM EDT ?[facility] ?[address] ? [place] [address] ?Voice: ?Fax: ? Echocardiogram Report Name: KELLY SHELL ? Study Date: 03/02/2022 10:43 AMBP: 127/92 mmHg ? Patient [facility] CV22 A : 1950 ? Height: 67 in ? Account: [id number] Age: 72 yrs ? Weight: 245 lb Gender: Male ?BSA: 2.2 m2 Ordering Physician: MARTIR RIOS Performed By: Manisha Hopson RDCS Reason For Study: Longstanding persistent atrial fibrillation Exam Location: [facility]. Interpretation Summary Left ventricular systolic function is mildly reduced. The left ventricular ejection fraction is 45% by Mendoza's biplane. Right ventricular systolic function is mildly decreased. There is moderate to severe mitral regurgitation. Compared with the prior SYDNEY of 03/01/2022, LV systolic function has improved. Moderate to severe MR is now noted. Procedure Limited - 98977. Doppler - 80391. Color Doppler - 05546. Satisfactory quality. Left Ventricle Left ventricle is of normal size. Wall thickness is mildly increased. Left ventricular systolic function is mildly reduced. The left ventricular ejection fraction is 45% by Mendoza's biplane. Mild global hypokinesis. Right Ventricle Right ventricle is mildly dilated. Right ventricular systolic function is mildly decreased. Left Atrium The left atrium is severely dilated. Aortic Valve The aortic valve is tricuspid. The aortic valve is mildly thickened. There is no aortic stenosis. There is no aortic regurgitation. Mitral Valve Mild thickening of the mitral leaflets. There is moderate to severe mitral regurgitation. Tricuspid Valve The tricuspid valve is structurally normal. There is mild to moderate tricuspid regurgitation. Pericardium/Pleural The pericardium appears normal. Hemodynamics The peak right ventricular systolic pressure is 36 mmHg. Ejection Fraction ?2D Measurements ? Volumes EF (HM)_phl: 51.0 % ? IVSd: 1.2 cm ? EDV Biplane: 87.8 ml LV Biplane EF: 45.3 % ? LVIDd: 5.6 cm ?EDV Biplane Index: 39.9 ?LVIDs: 4.0 cm ?ESV Biplane: 48.0 ml ?LVPWd: 1.2 cm ?ESV Biplane Index: 21.8 ?LV mass(C)d: 269.5 grams ? EDV (HM) Index: 81.8 ?LV mass(C)dI: 122.4 grams/m2 ?? ESV (HM) Index: 40.0 Doppler TR max dickson: 285.0 cm/sec RVSP(TR): 35.5 mmHg MR ERO: 0.31 cm2 MR Regurgitant Volume: 43.0 ml I ?WMSI = 2.00 ? % Normal = 0 ?Segments ??Size X - Cannot ?2 - ?4 - ?1-2 ? small Interpret ?1 - Normal ?? Hypokinetic 3 - Akinetic Dyskinetic ?? 3-5 ? moderate 5 - ? 6-14 ?large Aneurysmal ?15-16 ?? diffuse Procedure Note Abbie Sauceda MD - 03/02/[address] [address] Voice: Fax: Echocardiogram Report Name: KELLY SHELL Study Date: 0:43 AMBP: 127/92 mmHg Patient Location: [address] : 1950 Height: 67 in Account: [id number] Age: 72 yrs Weight: 245 lb Gender: Male BSA: 2.2 m2 Ordering Physician: MARTIR RIOS Performed By: Manisha Hopson RDCS Reason For Study: Longstanding persistent atrial fibrillation Exam Location: [facility]. Interpretation Summary Left ventricular systolic function is mildly reduced. The leftventricular ejection fraction is 45% by Mendoza's biplane. Right ventricular systolic function is mildly decreased. There is moderate to severe mitral regurgitation. Compared with the prior SYDNEY of 03/01/2022, LV systolic function hasimproved. Moderate to severe MR is now noted. Procedure Limited - 04846. Doppler - 31727. Color Doppler - 69452. Satisfactoryquality. Left Ventricle Left ventricle is of normal size. Wall thickness is mildly increased.Left ventricular systolic function is mildly reduced. The left ventricularejection fraction is 45% by Mendoza's biplane. Mild global hypokinesis. Right Ventricle Right ventricle is mildly dilated. Right ventricular systolic function ismildly decreased. Left Atrium The left atrium is severely dilated. Aortic Valve The aortic valve is tricuspid. The aortic valve is mildly thickened. Thereis no aortic stenosis. There is no aortic regurgitation. Mitral Valve Mild thickening of the mitral leaflets. There is moderate to severemitral regurgitation. Tricuspid Valve The tricuspid valve is structurally normal. There is mild to moderatetricuspid regurgitation. Pericardium/Pleural The pericardium appears normal. Hemodynamics The peak right ventricular systolic pressure is 36 mmHg. Ejection Fraction 2D Measurements Volumes EF (HM)_phl: 51.0 % IVSd: 1.2 cm EDV Biplane: 87.8ml LV Biplane EF: 45.3 % LVIDd: 5.6 cm EDV BiplaneIndex: 39.9 LVIDs: 4.0 cm ESV Biplane: 48.0ml LVPWd: 1.2 cm ESV BiplaneIndex: 21.8 LV mass(C)d: 269.5 grams EDV (HM) Index:81.8 LV mass(C)dI: 122.4 grams/m2 ESV (HM) Index:40.0 Doppler TR max dickson: 285.0 cm/sec RVSP(TR): 35.5 mmHg MR ERO: 0.31 cm2 MR Regurgitant Volume: 43.0 ml I WMSI = 2.00 % Normal = 0 SegmentsSize X - Cannot 2 - 4 - 1-2small Interpret 1 - Normal Hypokinetic 3 - Akinetic Dyskinetic 3-5moderate 5 - 6-14large Aneurysmal 15-16diffuse Martir Rios MD ECHO ORDERABLES * EKG 12 Lead (03/02/2022 8:42 AM EDT) Ventricular rate 64 BPM MUSE SYSTEM Atrial Rate 64 BPM MUSE SYSTEM P-R Interval 158 ms MUSE SYSTEM QRS Duration 88 ms MUSE SYSTEM Q-T Interval 498 ms MUSE SYSTEM QTC Calculated (Bezet) 513 ms MUSE SYSTEM Calculated P [place] 57 degrees MUSE SYSTEM Calculated R [place] -6 degrees MUSE SYSTEM Calculated T [place] 9 degrees MUSE SYSTEM INTERPRETATION Normal sinus rhythm with sinus arrhythmia Cannot rule out Inferior infarct (cited on or before 10-JAN-2022) Abnormal ECG When compared with ECG of 01-MAR-2022 11:21, Sinus rhythm has replaced Ectopic atrial rhythm Confirmed by MD Jose David, Favio Duggan ([id number]) on 03/05/2022 10:24:58 PM MUSE SYSTEM 03/02/2022 8:42 AM EDT 03/05/2022 10:24 PM EDT Martir Rios MD ECG ORDERABLES Performing Organization Address City/[facility]/ZIP Co de Phone Number MUSE SYSTEM * Potassium (03/02/2022 8:29 AM EDT) Potassium 3.9 3.5 - 5.0 mmol/L [facility] Comment: Please note: ??Patients with WBC >100,000 may have falsely elevated Potassium levels. ??For accurate Potassium quantification in these patients send serum separator tube (gold top) for subsequent determinations. ??Contact the Clinical Chemistry Laboratory if there are any questions. Blood 03/02/2022 8:29 AM EDT 03/02/2022 8:40 AM EDT Narrative Resulting Agency Comment Spec In Lab Jorge Deutsch MD CHEMISTRY ORDERABLES [facility] [place] [address] * POCT Glucose (03/02/2022 8:04 AM EDT) Glucose, POC 157 65 - 199 mg/dL [facility] Comment: Supplemental ranges: <140 mg/dL before meals <180 mg/dL all other times of the day Blood 03/02/2022 8:04 AM EDT 03/02/2022 8:04 AM EDT Martir Rios MD POINT OF CARE TEST O RDERABLES [facility] [place] [address] * POCT Glucose (03/02/2022 3:27 AM EDT) Glucose, POC 155 65 - 199 mg/dL [facility] Comment: Supplemental ranges: <140 mg/dL before meals <180 mg/dL all other times of the day Blood 03/02/2022 3:27 AM EDT 03/02/2022 3:27 AM EDT Jorge Deutsch MD POINT OF CARE TEST O ALEX Performing Organization Address City/[facility]/ZIP Co de Phone Number [facility] [place] [address] * (ABNORMAL) Differential, Automated (03/02/2022 3:20 AM EDT) Pathologist [facility] Neutrophil % 68.7 % [facility] Neutrophil Absolute 6.46(H) 1.70 - 6.10 x10(3)/mc L [facility] Lymph % 13.7 % [facility] Lymphocytes Abs 1.3 0.9 - 3.2 x10(3)/mc L [facility] Monocyte % 14.3 % [facility] Monocyte Abs 1.4(H) 0.3 - 0.9 x10(3)/mc L [facility] Eos % 2.2 % [facility] Eosinophils Abs 0.2 0.0 - 0.4 x10(3)/mc L [facility] Basophil % 0.7 % [facility] Baso Absolute 0.1 0.0 - 0.1 x10(3)/mc L [facility] Immature Gran % 0.40 % [facility] Comment: Immature granulocytes(IG's)percentage and absolute count will include metamyelocytes, myelocytes, and promyelocytes. Blood smears from CBCs yielding IG's will be scanned manually for concordance. If this scan disagrees with the automated IG or if promyelocytes are noted, a manual differential will be performed. Immature Gran Absolute 0.04 0.00 - 0.04 x10(3)/[facility] Blood 03/02/2022 3:20 AM EDT 03/02/2022 3:37 AM EDT Narrative Resulting Agency Comment Spec In Lab Alfredito Israel MD HEMATOLOGY ORDERABL ES [facility] [place] [address] * (ABNORMAL) Hemogram (03/02/2022 3:20 AM EDT) White Blood Cell 9.4 4.0 - 9.5 x10(3)/[facility] Red Blood Cell 4.25(L) 4.58 - 5.54 x10(6)/[facility] Hemoglobin 12.9(L) 13.7 - 16.5 g/dL [facility] Hematocrit 40.2(L) 40.5 - 48.5 % [facility] Mean Cell Volume 94.6(H) 82.9 - 93.1 [facility] Mean Cell Hemoglobin 30.4 27.5 - 32.1 pg [facility] Mean Cell Hemoglobin Concentration 32.1 32.0 - 35.7 g/dL [facility] Platelet 77(L) 145 - 357 x10(3)/[facility] RDW Standard Deviation 48.5(H) 36.0 - 45.0 fL [facility] RDW coefficient of variation 14.1(H) 11.4 - 13.8 % [facility] Mean Platelet Volume 12.2 7.6 - 12.9 fL [facility] NRBC% auto 0.0 % [facility] NRBC Absolute 0.000 0.000 - 0.000 x10(3)/mc L [facility] Blood 03/02/2022 3:20 AM EDT 03/02/2022 3:37 AM EDT Narrative Resulting Agency Comment Spec In Lab Alfredito Israel MD HEMATOLOGY ORDERABL ES Performing Organization Address [facility] Co de Phone Number [facility] [place] [address] * TSH (03/02/2022 3:20 AM EDT) Thyroid Stimulating Hormone 2.59 0.27 - 4.20 mcIU/mL [facility] Comment: Reference Interval (mcIU/mL): Females: ??First Trimester: 0.23-3.88 ??Second Trimester: 0.22-3.90 ??Third Trimester: 0.44-4.66 Blood 03/02/2022 3:20 AM EDT 03/02/2022 3:37 AM EDT Narrative Resulting Agency Comment Spec In Lab Jorge Deutsch MD CHEMISTRY ORDERABLES Performing Organization Address [facility] Co de Phone Number [facility] [place] [address] * Magnesium (03/02/2022 3:20 AM EDT) Magnesium 0.94 0.69 - 1.07 mmol/L [facility] Blood 03/02/2022 3:20 AM EDT 03/02/2022 3:37 AM EDT Narrative Resulting Agency Comment Spec In Lab Jorge Deutsch MD CHEMISTRY ORDERABLES Performing Organization Address [facility]/ZIP Co de Phone Number [facility] [place] [address] * (ABNORMAL) Basic Metabolic Panel (non-fasting) (03/02/2022 3:20 AM EDT) Glucose 168 65 - 199 mg/dL [facility] Comment:Diabetes: >=200 mg/d L plus symptoms Blood Urea Nitrogen 22(H) 10 - 20 mg/dL [facility] Creatinine 0.87 0.80 - 1.50 mg/dL [facility] Sodium 138 135 - 145 mmol/L [facility] Potassium 3.8 3.5 - 5.0 mmol/L [facility] Comment: Please note: ??Patients with WBC >100,000 may have falsely elevated Potassium levels. ??For accurate Potassium quantification in these patients send serum separator tube (gold top) for subsequent determinations. ??Contact the Clinical Chemistry Laboratory if there are any questions. Chloride 100 98 - 107 mmol/L [facility] Carbon Dioxide 28 22 - 31 mmol/L [facility] Anion Gap 10 5 - 15 mmol/L [facility] Calcium 8.5 8.5 - 10.5 mg/dL [facility] Est Glomerular Filtration Rate 92 >=60 mL/min/1. 73 m?? [facility] Comment: This patient's estimated [...] and symptoms in addition to eGFR. Blood 03/02/2022 3:20 AM EDT 03/02/2022 3:37 AM EDT Narrative Resulting Agency Comment Spec In Lab Jorge Deutsch MD CHEMISTRY ORDERABLES [facility] [place] [address] * POCT Glucose (03/01/2022 11:45 PM EDT) Glucose, POC 188 65 - 199 mg/dL [facility] Comment: Supplemental ranges: <140 mg/dL before meals <180 mg/dL all other times of the day Blood 03/01/2022 11:4 5 PM EDT 03/01/2022 11:45 PM EDT Jorge Deutsch MD POINT OF CARE TEST O RDERAJESSIE [facility] [place] [address] * POCT Glucose (03/01/2022 10:30 PM EDT) Glucose, POC 187 65 - 199 mg/dL [facility] Comment: Supplemental ranges: <140 mg/dL before meals <180 mg/dL all other times of the day Blood 03/01/2022 10:3 0 PM EDT 03/01/2022 10:30 PM EDT Jorge Deutsch MD POINT OF CARE TEST O RDERAJESSIE [facility] [place] [address] * (ABNORMAL) POCT Glucose (03/01/2022 7:43 PM EDT) Glucose, POC 286(H) 65 - 199 mg/dL [facility] Comment: Supplemental ranges: <140 mg/dL before meals <180 mg/dL all other times of the day Blood 03/01/2022 7:43 PM EDT 03/01/2022 7:43 PM EDT Jorge Deutsch MD POINT OF CARE TEST O RDERAJESSIE [facility] [place] [address] * POCT Glucose (03/01/2022 5:01 PM EDT) Glucose, POC 190 65 - 199 mg/dL [facility] Comment: Supplemental ranges: <140 mg/dL before meals <180 mg/dL all other times of the day Blood 03/01/2022 5:01 PM EDT 03/01/2022 5:01 PM EDT Jorge Deutsch MD POINT OF CARE TEST O RDERABLES Performing Organization Address [facility]/ZIP Co de Phone Number [facility] [place] [address] * Electrolytes panel (03/01/2022 12:57 PM EDT) Sodium 140 135 - 145 mmol/L [facility] Potassium 4.2 3.5 - 5.0 mmol/L [facility] Comment: Please note: ??Patients with WBC >100,000 may have falsely elevated Potassium levels. ??For accurate Potassium quantification in these patients send serum separator tube (gold top) for subsequent determinations. ??Contact the Clinical Chemistry Laboratory if there are any questions. Chloride 102 98 - 107 mmol/L [facility] Carbon Dioxide 30 22 - 31 mmol/L [facility] Anion Gap 8 5 - 15 mmol/L [facility] Blood 03/01/2022 12:5 7 PM EDT 03/01/2022 12:57 PM EDT Narrative Resulting Agency Comment Spec In Lab Jorge Deutsch MD CHEMISTRY ORDERABLES Performing Organization Address [facility]/ZIP Co de Phone Number [facility] [place] [address] * SYDNEY W LMTD SPECTRAL DOPPLER COLOR DOPPLER AND CARDIOVERSION (03/01/2022 11:27 AM EDT) Anatomical Region Laterality Modality Cardiac Other 03/01/2022 10:1 8 AM EDT Narrative 03/01/2022 5:25 PM EDT ?[facility] ?[address] ? [place] [address] ?Voice: ?Fax: ? Transesophageal Echocardiogram Report Name: KELLY SHELL ? Study Date: 03/01/2022 10:18 AM ? Patient Location: [facility] CV[facility] A : 1950 ? Height: 170 cm ? Account: [id number] Age: 72 yrs ? Weight: 112 kg Gender: Male ?BSA: 2.2 m2 Ordering Physician: JORGE DEUTSCH Referring Physician: Jorge Deutsch Performed By: Lali Sam MD Reason For Study: afib Interpreting Fellow: Lali Sam. Exam Location: [facility]. Interpretation Summary No thrombus or clot visualized in left atrial appendage. Biventricular moderate systolic dysfunction. Severe biatrial enlargement. No PFO. Moderate TR and MR. Procedure A Complete Transesophageal echocardiogram study with cardioversion was performed. After suitable sedation, the probe was passed without difficulty. Standard views were obtained in the transgastric, mid esophageal, and basal planes using a multiplane transesophageal echo probe. Additional evaluation with color flow Doppler and limited spectral Doppler was performed. There were no complications during the procedure. The study images were of technically good quality. Informed consent from the patient in writing. The risks and benefits of the procedure were explained in detail to the patient, including but not limited to the risk of aspiration, dysphagia, and esophageal perforation. Patient agreed to proceed. Left Ventricle Left ventricle is of normal size. Wall thickness is normal. Left ventricular systolic function is moderately reduced. Moderate global hypokinesis. Right Ventricle Right ventricle is moderately dilated. Right ventricular systolic function is moderately decreased. Left Atrium The left atrium is severely dilated. There is no thrombus in the left atrial appendage. Spontaneous contrast is present in the left atrium and in the left atrial appendage. No abnormality of the interatrial septum is identified. There is no evidence for a patent foramen ovale. Right Atrium The right atrium is severely dilated. Aortic Valve The aortic valve is structurally and functionally normal. There is no aortic stenosis. There is trace aortic regurgitation. Mitral Valve The mitral valve is structurally normal. There is mild to moderate mitral regurgitation. The color Doppler jet is central directed. Tricuspid Valve The tricuspid valve is structurally normal. There is moderate tricuspid regurgitation. The Doppler jet is directed along the atrial septum. Pulmonic Valve The pulmonic valve is not well visualized. Great Arteries The aortic root at the level of the sinuses of Valsalva is mildly dilated. The ascending aorta is mildly dilated. Ascending Plaque grade 1: (normal Intima). Venous Inferior vena cava is not well visualized. Pericardium/Pleural There is no pericardial effusion. I ?WMSI = 2.00 ? % Normal = 0 ?Segments ??Size X - Cannot ?? 1 - Normal ?? 2 - ? 3 - Akinetic 4 - ?1-2 ? small Interpret ? Hypokinetic ?Dyskinetic ?? 3-5 ? moderate 5 - ? 6-14 ?large Aneurysmal ?15-16 ?? diffuse Procedure Note Jarad López MD - 03/01/2022 [address] [place] [address] [place] [address] Voice: Fax: Transesophageal Echocardiogram Report Name: KELLY SHELL Study Date: 210:18 AM Patient Location: [address] : 1950 Height: 170 cm Account: [id number] Age: 72 yrs Weight: 112 kg Gender: Male BSA: 2.2 m2 Ordering Physician: JORGE DEUTCSH Referring Physician: Jorge Deutsch Performed By: Lali Sam MD Reason For Study: afib Interpreting Fellow: Lali Sam. Exam Location: [facility]. Interpretation Summary No thrombus or clot visualized in left atrial appendage. Biventricular moderate systolic dysfunction. Severe biatrial enlargement. No PFO. Moderate TR and MR. Procedure A Complete Transesophageal echocardiogram study with cardioversion wasperformed. After suitable sedation, the probe was passed without difficulty. Standardviews were obtained in the transgastric, mid esophageal, and basal planes usinga multiplane transesophageal echo probe. Additional evaluation with colorflow Doppler and limited spectral Doppler was performed. There were nocomplications during the procedure. The study images were of technically good quality.Informed consent from the patient in writing. The risks and benefits of theprocedure were explained in detail to the patient, including but not limited to the riskof aspiration, dysphagia, and esophageal perforation. Patient agreed toproceed. Left Ventricle Left ventricle is of normal size. Wall thickness is normal. Leftventricular systolic function is moderately reduced. Moderate global hypokinesis. Right Ventricle Right ventricle is moderately dilated. Right ventricular systolic functionis moderately decreased. Left Atrium The left atrium is severely dilated. There is no thrombus in the leftatrial appendage. Spontaneous contrast is present in the left atrium and in theleft atrial appendage. No abnormality of the interatrial septum is identified.There is no evidence for a patent foramen ovale. Right Atrium The right atrium is severely dilated. Aortic Valve The aortic valve is structurally and functionally normal. There is noaortic stenosis. There is trace aortic regurgitation. Mitral Valve The mitral valve is structurally normal. There is mild to moderatemitral regurgitation. The color Doppler jet is central directed. Tricuspid Valve The tricuspid valve is structurally normal. There is moderate tricuspid regurgitation. The Doppler jet is directed along the atrial septum. Pulmonic Valve The pulmonic valve is not well visualized. Great Arteries The aortic root at the level of the sinuses of Valsalva is mildly dilated.The ascending aorta is mildly dilated. Ascending Plaque grade 1: (normalIntima). Venous Inferior vena cava is not well visualized. Pericardium/Pleural There is no pericardial effusion. I WMSI = 2.00 % Normal = 0 SegmentsSize X - Cannot 1 - Normal 2 - 3 - Akinetic 4 - 1-2small Interpret Hypokinetic Dyskinetic 3-5moderate 5 - 6-14large Aneurysmal 15-16diffuse Jorge Deutsch MD ECHO ORDERABLES * POCT Glucose (03/01/2022 11:02 AM EDT) Glucose, POC 108 65 - 199 mg/dL [facility] Comment: Supplemental ranges: <140 mg/dL before meals <180 mg/dL all other times of the day Blood 03/01/2022 11:0 2 AM EDT 03/01/2022 11:02 AM EDT Jorge Deutsch MD POINT OF CARE TEST O RDKISSIMMEEBLES [facility] [place] [address] * POCT Glucose (03/01/2022 8:04 AM EDT) Glucose, POC 102 65 - 199 mg/dL [facility] Comment: Supplemental ranges: <140 mg/dL before meals <180 mg/dL all other times of the day Blood 03/01/2022 8:04 AM EDT 03/01/2022 8:04 AM EDT Jorge Deutsch MD POINT OF CARE TEST O RDSCOTT Performing Organization Address City/[facility]/ZIP Co de Phone Number [facility] [place] [address] * POCT Glucose (03/01/2022 4:38 AM EDT) Pathologist [facility] Glucose, POC 121 65 - 199 mg/dL [facility] Comment: Supplemental ranges: <140 mg/dL before meals <180 mg/dL all other times of the day Blood 03/01/2022 4:38 AM EDT 03/01/2022 4:38 AM EDT Jorge Deutsch MD POINT OF CARE TEST O ALEX Performing Organization Address [facility] Co de Phone Number [facility] [place] [address] * (ABNORMAL) Differential, Automated (03/01/2022 4:30 AM EDT) [facility] Neutrophil % 67.0 % [facility] Neutrophil Absolute 6.62(H) 1.70 - 6.10 x10(3)/mc L [facility] Lymph % 16.6 % [facility] Lymphocytes Abs 1.6 0.9 - 3.2 x10(3)/mc L [facility] Monocyte % 12.6 % [facility] Monocyte Abs 1.2(H) 0.3 - 0.9 x10(3)/mc L [facility] Eos % 2.8 % [facility] Eosinophils Abs 0.3 0.0 - 0.4 x10(3)/mc L [facility] Basophil % 0.6 % [facility] Baso Absolute 0.1 0.0 - 0.1 x10(3)/mc L [facility] Immature Gran % 0.40 % [facility] Comment: Immature granulocytes(IG's)percentage and absolute count will include metamyelocytes, myelocytes, and promyelocytes. Blood smears from CBCs yielding IG's will be scanned manually for concordance. If this scan disagrees with the automated IG or if promyelocytes are noted, a manual differential will be performed. Immature Gran Absolute 0.04 0.00 - 0.04 x10(3)/ L [facility] Blood 03/01/2022 4:30 AM EDT 03/01/2022 4:47 AM EDT Narrative Resulting Agency Comment Spec In Lab Alfredito Israel MD HEMATOLOGY ORDERABL ES [facility] [place] [address] * (ABNORMAL) Hemogram (03/01/2022 4:30 AM EDT) White Blood Cell 9.9(H) 4.0 - 9.5 x10(3)/ L [facility] Red Blood Cell 4.14(L) 4.58 - 5.54 x10(6)/ L [facility] Hemoglobin 12.9(L) 13.7 - 16.5 g/dL [facility] Hematocrit 39.5(L) 40.5 - 48.5 % [facility] Mean Cell Volume 95.4(H) 82.9 - 93.1 fL [facility] Mean Cell Hemoglobin 31.2 27.5 - 32.1 pg [facility] Mean Cell Hemoglobin Concentration 32.7 32.0 - 35.7 g/dL [facility] Platelet 90(L) 145 - 357 x10(3)/ L [facility] RDW Standard Deviation 48.5(H) 36.0 - 45.0 fL [facility] RDW coefficient of variation 13.9(H) 11.4 - 13.8 % [facility] Mean Platelet Volume 12.7 7.6 - 12.9 fL [facility] NRBC% auto 0.0 % [facility] NRBC Absolute 0.000 0.000 - 0.000 x10(3)/ L [facility] Blood 03/01/2022 4:30 AM EDT 03/01/2022 4:47 AM EDT Narrative Resulting Agency Comment Spec In Lab Alfredito Israel MD HEMATOLOGY ORDERABL ES Performing Organization Address [facility] Co de Phone Number [facility] [place] [address] * TSH (03/01/2022 4:30 AM EDT) Thyroid Stimulating Hormone 3.49 0.27 - 4.20 mcIU/mL [facility] Comment: Reference Interval (mcIU/mL): Females: ??First Trimester: 0.23-3.88 ??Second Trimester: 0.22-3.90 ??Third Trimester: 0.44-4.66 Blood 03/01/2022 4:30 AM EDT 03/01/2022 4:47 AM EDT Narrative Resulting Agency Comment Spec In Lab Jorge Deutsch MD CHEMISTRY ORDERABLES Performing Organization Address [facility] de Phone Number [facility] [place] [address] * Magnesium (03/01/2022 4:30 AM EDT) Magnesium 0.88 0.69 - 1.07 mmol/L [facility] Blood 03/01/2022 4:30 AM EDT 03/01/2022 4:47 AM EDT Narrative Resulting Agency Comment Spec In Lab Jorge Deutsch MD CHEMISTRY ORDERABLES Performing Organization Address [facility] Co de Phone Number [facility] [place] [address] * (ABNORMAL) Basic Metabolic Panel (non-fasting) (03/01/2022 4:30 AM EDT) Glucose 131 65 - 199 mg/dL [facility] Comment:Diabetes: >=200 mg/d L plus symptoms Blood Urea Nitrogen 24(H) 10 - 20 mg/dL [facility] Creatinine 0.96 0.80 - 1.50 mg/dL [facility] Sodium 142 135 - 145 mmol/L [facility] Potassium 3.6 3.5 - 5.0 mmol/L [facility] Comment: Please note: ??Patients with WBC >100,000 may have falsely elevated Potassium levels. ??For accurate Potassium quantification in these patients send serum separator tube (gold top) for subsequent determinations. ??Contact the Clinical Chemistry Laboratory if there are any questions. Chloride 103 98 - 107 mmol/L [facility] Carbon Dioxide 27 22 - 31 mmol/L [facility] Anion Gap 12 5 - 15 mmol/L [facility] Calcium 8.6 8.5 - 10.5 mg/dL [facility] Est Glomerular Filtration Rate 84 >=60 mL/min/1. 73 m?? [facility] Comment: This patient's estimated [...] and symptoms in addition to eGFR. Blood 03/01/2022 4:30 AM EDT 03/01/2022 4:47 AM EDT Narrative Resulting Agency Comment Spec In Lab Jorge Deutsch MD CHEMISTRY ORDERABLES [facility] [place] [address] * (ABNORMAL) Hemoglobin A1c (03/01/2022 4:30 AM EDT) Hemoglobin A1c 7.5(H) 4.3 - 5.6 % [facility] Comment: Reference Range: 4.3 - 5.6% [...] [id number] Estimated Average Glucose See note mg/dL [facility] Comment: Estimated Average Glucose not appropriate [...] into estimated average glucose values. ??Diabetes Care 2008:31(8):[id number]. Blood 03/01/2022 4:30 AM EDT 03/01/2022 4:47 AM EDT Narrative Resulting Agency Comment Spec In Lab Jorge Deutsch MD CHEMISTRY ORDERABLES Performing Organization Address City/State/[facility] Co de Phone Number [facility] [place] [address] * POCT Glucose (03/01/2022 12:21 AM EDT) Glucose, POC 167 65 - 199 mg/dL [facility] Comment: Supplemental ranges: <140 mg/dL before meals <180 mg/dL all other times of the day Blood 03/01/2022 12:2 1 AM EDT 03/01/2022 12:21 AM EDT Jorge Deutsch MD POINT OF CARE TEST O RDERABLES Performing Organization Address [facility] Co de Phone Number [facility] [place] [address] * Magnesium (02/28/2022 9:30 PM EDT) Magnesium 0.86 0.69 - 1.07 mmol/L [facility] Blood 02/28/2022 9:30 PM EDT 02/28/2022 9:40 PM EDT Narrative Resulting Agency Comment Spec In Lab Jorge Deutsch MD CHEMISTRY ORDERABLES Performing Organization Address [facility] Co de Phone Number [facility] [place] [address] * Lactate, whole blood, [place] [place] (02/28/2022 9:30 PM EDT) [facility] Lactate WB 2.0 0.5 - 2.2 mmol/L [facility] Blood 02/28/2022 9:30 PM EDT 02/28/2022 9:39 PM EDT Narrative Resulting Agency Comment Spec In Lab Jorge Deutsch MD CHEMISTRY ORDERABLES Performing Organization Address [facility]/ZIP Co de Phone Number [facility] [place] [address] * (ABNORMAL) Basic Metabolic Panel (non-fasting) (02/28/2022 9:30 PM EDT) Glucose 166 65 - 199 mg/dL [facility] Comment:Diabetes: >=200 mg/d L plus symptoms Blood Urea Nitrogen 26(H) 10 - 20 mg/dL [facility] Creatinine 0.87 0.80 - 1.50 mg/dL [facility] Sodium 144 135 - 145 mmol/L [facility] Potassium 3.9 3.5 - 5.0 mmol/L [facility] Comment: Please note: ??Patients with WBC >100,000 may have falsely elevated Potassium levels. ??For accurate Potassium quantification in these patients send serum separator tube (gold top) for subsequent determinations. ??Contact the Clinical Chemistry Laboratory if there are any questions. Chloride 105 98 - 107 mmol/L [facility] Carbon Dioxide 24 22 - 31 mmol/L [facility] Anion Gap 15 5 - 15 mmol/L [facility] Calcium 8.6 8.5 - 10.5 mg/dL [facility] Est Glomerular Filtration Rate 92 >=60 mL/min/1. 73 m?? [facility] Comment: This patient's estimated [...] and symptoms in addition to eGFR. Blood 02/28/2022 9:30 PM EDT 02/28/2022 9:40 PM EDT Narrative Resulting Agency Comment Spec In Lab Jorge Deutsch MD CHEMISTRY ORDERABLES [facility] [place] [address] * Lipid Panel (Reflex Direct LDL) (02/28/2022 9:30 PM EDT) Cholesterol, Total 96 mg/dL [facility] Comment: Lower Risk: <200 mg/dL Average Risk: 200-239 mg/dL Higher Risk: >jw=197 mg/dL Triglyceride 67 mg/dL [facility] Comment: Average Risk/Lower Risk: <150 mg/dL Borderline High Risk: 150-199 mg/dL High Risk: 200-499 mg/dL Very High Risk: >wy=070 mg/dL HDL Cholesterol 26 mg/dL [facility] Comment: Males: ?? Higher Risk: <40 mg/dL Females: ?? Higher Risk: <50 mg/dL LDL Cholesterol 57 mg/dL [facility] Comment: Lowest Risk: <100 mg/dL Lower Risk: 100-129 mg/dL Borderline High Risk: 130-159 mg/dL High Risk: 160-189 mg/dL Very High Risk: >vl=476 mg/dL Cholesterol/HDL Ratio 3.7 ratio [facility] Lipid Interpretation See Note [facility] Comment: Lipid management should be guided by a patient? s ASCVD risk, goals and preferences. ACC/AHA Guidelines recommend high intensity statin if clinical ASCVD or LDL greater than or equal to 190 mg/dL. http://Outspark.com/TEZ-QMQ-Mgqlixvee Adults aged 40-75 with LDL 70-189 mg/dL should have their 10 year ASCVD risk estimated with the ACC/AHA ASCVD risk commercial roofing estimator http://tools.acc.org/THCWU-Wfhi-Lxyfhylhr/ Statin should be discussed if risk greater [...] Narrative Resulting Agency Comment Spec In Lab Jorge Deutsch MD CHEMISTRY ORDERABLES Performing Organization Address [facility]/ZIP Co de Phone Number [facility] [place] [address] * POCT Glucose (02/28/2022 8:31 PM EDT) Glucose, POC 154 65 - 199 mg/dL [facility] Comment: Supplemental ranges: <140 mg/dL before meals <180 mg/dL all other times of the day Blood 02/28/2022 8:31 PM EDT 02/28/2022 8:31 PM EDT Jorge Deutsch MD POINT OF CARE TEST O RDERABLES Performing Organization Address [facility] Co de Phone Number [facility] [place] [address] * (ABNORMAL) BLOOD GAS 2 VENOUS (02/28/2022 4:16 PM EDT) pH, Venous 7.39 7.32 - 7.42 [facility] PCO2, Venous 41 41 - 51 mmHg [facility] PO2, Venous 22(L) 25 - 40 mmHg [facility] Bicarbonate, Venous 24.4 mmol/L [facility] Base Excess, Venous -0.5 mmol/L [facility] Hgb Blood Gas 13.7 13.7 - 16.5 g/dL [facility] Oxyhemoglobin, Venous 31.7 % [facility] Carboxyhemoglob in, Venous 1.8 % [facility] Comment: Nonsmokers: 0.5-1.5% COHB Smokers: Variable, but usually less than 10% Toxic: 20-30% COHB Lethal: Greater than 60% COHB Methemoglobin, Venous 0.8 <=1.5 % [facility] Na Whole Blood 140 135 - 145 mmol/L [facility] K Whole Blood 3.9 3.5 - 5.0 mmol/L [facility] Comment: Please note: Patients with WBC >100,000 may have falsely elevated Potassium levels. Contact the Clinical Chemistry Laboratory if there are any questions. ICa Whole Blood 1.16 1.15 - 1.33 mmol/L [facility] Comment: Note: ??Total bilirubin higher than 20 mg/dL may lead to falsely low ionized calcium. CL Whole Blood 102 98 - 107 mmol/L [facility] Gluc Whole Bld 111 65 - 199 mg/dL [facility] Comment:Diabetes: >=200 mg/d L plus symptoms Lactate WB 2.4(H) 0.5 - 2.2 mmol/L [facility] Blood Gas Source Venous [facility] Blood 02/28/2022 4:16 PM EDT 02/28/2022 4:16 PM EDT Jorge Deutsch MD POINT OF CARE TEST O RDERABLES [facility] [place] [address] * ECHO COMPLETE W CONTRAST (02/28/2022 3:43 PM EDT) EF 23 HEARTLAB SYSTEM Anatomical Region Laterality Modality Cardiac Other 02/28/2022 2:39 PM EDT Narrative 02/28/2022 4:13 PM EDT ?[facility] ?[address] ? [place] [address] ?Voice: ?Fax: ? Echocardiogram Report Name: KELLY SHELL ? Study Date: 02/28/2022 02:39 PMBP: 118/88 mmHg ? Patient Location: ED ED24 ED24 : 1950 ? Height: 67 in ? Account: [id number] Age: 72 yrs ? Weight: 249 lb Gender: Male ?BSA: 2.2 m2 Ordering Physician: MORGAN EVERETT Performed By: Adilene Mcfarland RDCS Reason For Study: Chronic AFIB Exam Location: [facility]. Interpretation Summary Patient in atrial fibrillation with RVR. Left ventricle is of normal size. Wall thickness is normal. Left ventricular systolic function is severely reduced. The left ventricular ejection fraction is 23% by Mendoza's biplane. Severe global hypokinesis. Right ventricle is mildly dilated. Right ventricular systolic function is moderately decreased. The left atrium is severely dilated. The right atrium is mildly dilated. There is at least moderate mitral and tricuspi regurgitation. Aortic root is mildly dilated (3.8 cm). Ascending aorta is moderately dilated (4.0 cm). Compared with the previous echo performed on 12/12/2021 (at [facility]), biventricular systolic function has decreased. Procedure Complete-26177. Image enhancement Optison was used for left ventricular opacification. Satisfactory quality. The rhythm is atrial fibrillation. Left Ventricle Left ventricle is of normal size. Wall thickness is normal. There is no ventricular septal defect. Left ventricular systolic function is severely reduced. The left ventricular ejection fraction is 23% by Mendoza's biplane. Severe global hypokinesis. Right Ventricle Right ventricle is mildly dilated. Right ventricular systolic function is moderately decreased. Left Atrium The left atrium is severely dilated. There is no evidence for a patent foramen ovale. Right Atrium The right atrium is mildly dilated. Aortic Valve The aortic valve is structurally normal. There is no aortic stenosis. There is no aortic regurgitation. Mitral Valve The mitral valve is structurally normal. There is no mitral stenosis. There is moderate mitral regurgitation. Tricuspid Valve The tricuspid valve is structurally normal. There is moderate tricuspid regurgitation. Pulmonic Valve The pulmonic valve appears to be structurally and functionally normal. Great Arteries Aortic root is mildly dilated (3.8 cm). Ascending aorta is moderately dilated (4.0 cm). No abnormalities of the pulmonary artery are identified. Venous Inferior vena cava is dilated. Inferior vena cava collapse less than 50% with respiration. Pericardium/Pleural The pericardium appears normal. Hemodynamics The right ventricular systolic pressure is moderately increased. The peak right ventricular systolic pressure is 54 mmHg. The estimated right atrial pressure is 15mmHg. Left ventricular filling pressure is indeterminate. Ejection Fraction ?2D Measurements ? Volumes LV Biplane EF: 23.2 % ? IVSd: 0.99 cm ?LA Volume Index: ?LVIDd: 5.4 cm ?LVIDs: 4.0 cm ?59.8 ml/m2 ? EDV Biplane: 137.9 ml ?LVPWd: 1.0 cm ?EDV Biplane Index: 62.2 ?LV mass(C)d: 208.5 grams ? ESV Biplane: 105.9 ml ?LV mass(C)dI: 94.0 grams/m2 ?ESV Biplane Index: 47.7 ?Ao root diam: 3.8 cm ? SV(LVOT): 28.2 ml ?Ao root diam index: 1.7 ?LV Stroke Volume: 28.1 ml ?asc Aorta Diam: 4.0 cm ?LVOT diam: 2.1 cm ?SI(LVOT): 12.7 ml/m2 ?TAPSE_phl: 1.4 cm Doppler TR max dickson: 259.7 cm/sec RVSP(TR): 53.6 mmHg I ?WMSI = 2.00 ? % Normal = 0 ?There is diffuse ?hypokinesis. ?Segments ??Size X - Cannot ?? 1 - Normal ?? 2 - ? 3 - Akinetic 4 - ?1-2 ? small Interpret ? Hypokinetic ?Dyskinetic ?? 3-5 ? moderate 5 - ? 6-14 ?large Aneurysmal ?15-16 ?? diffuse Procedure Note Martir Rios MD - 02/28/2022 [facility] [address] [place] [address] Voice: Fax: Echocardiogram Report Name: KELLY SHELL Study Date: 202:39 PMBP: 118/88 mmHg Patient Location: [place] [address] : 1950 Height: 67 in Account: [id number] Age: 72 yrs Weight: 249 lb Gender: Male BSA: 2.2 m2 Ordering Physician: MORGAN EVERETT Performed By: Adilene Mcfarland RDCS Reason For Study: Chronic AFIB Exam Location: [facility]. Interpretation Summary Patient in atrial fibrillation with RVR. Left ventricle is of normal size. Wall thickness is normal. Leftventricular systolic function is severely reduced. The left ventricular ejectionfraction is 23% by Mendoza's biplane. Severe global hypokinesis. Right ventricle is mildly dilated. Right ventricular systolic functionis moderately decreased. The left atrium is severely dilated. The right atrium is mildly dilated. There is at least moderate mitral and tricuspi regurgitation. Aortic root is mildly dilated (3.8 cm). Ascending aorta is moderatelydilated (4.0 cm). Compared with the previous echo performed on 12/12/2021 (at [facility]),biventricular systolic function has decreased. Procedure Complete-16501. Image enhancement Optison was used for left ventricular opacification. Satisfactory quality. The rhythm is atrial fibrillation. Left Ventricle Left ventricle is of normal size. Wall thickness is normal. There is no ventricular septal defect. Left ventricular systolic function is severelyreduced. The left ventricular ejection fraction is 23% by Mendoza's biplane. Severeglobal hypokinesis. Right Ventricle Right ventricle is mildly dilated. Right ventricular systolic functionis moderately decreased. Left Atrium The left atrium is severely dilated. There is no evidence for a patentforamen ovale. Right Atrium The right atrium is mildly dilated. Aortic Valve The aortic valve is structurally normal. There is no aortic stenosis.There is no aortic regurgitation. Mitral Valve The mitral valve is structurally normal. There is no mitral stenosis.There is moderate mitral regurgitation. Tricuspid Valve The tricuspid valve is structurally normal. There is moderate tricuspid regurgitation. Pulmonic Valve The pulmonic valve appears to be structurally and functionally normal. Great Arteries Aortic root is mildly dilated (3.8 cm). Ascending aorta is moderatelydilated (4.0 cm). No abnormalities of the pulmonary artery are identified. Venous Inferior vena cava is dilated. Inferior vena cava collapse less than 50%with respiration. Pericardium/Pleural The pericardium appears normal. Hemodynamics The right ventricular systolic pressure is moderately increased. The peakright ventricular systolic pressure is 54 mmHg. The estimated right atrialpressure is 15mmHg. Left ventricular filling pressure is indeterminate. Ejection Fraction 2D Measurements Volumes LV Biplane EF: 23.2 % IVSd: 0.99 cm LA VolumeIndex: LVIDd: 5.4 cm LVIDs: 4.0 cm 59.8 ml/m2 EDV Biplane:137.9 ml LVPWd: 1.0 cm EDV BiplaneIndex: 62.2 LV mass(C)d: 208.5 grams ESV Biplane:105.9 ml LV mass(C)dI: 94.0 grams/m2 ESV BiplaneIndex: 47.7 Ao root diam: 3.8 cm SV(LVOT): 28.2ml Ao root diam index: 1.7 LV Stroke Volume:28.1 ml asc Aorta Diam: 4.0 cm LVOT diam: 2.1 cm SI(LVOT): 12.7ml/m2 TAPSE_phl: 1.4 cm Doppler TR max dickson: 259.7 cm/sec RVSP(TR): 53.6 mmHg I WMSI = 2.00 % Normal = 0 There isdiffuse hypokinesis. SegmentsSize X - Cannot 1 - Normal 2 - 3 - Akinetic 4 - 1-2small Interpret Hypokinetic Dyskinetic 3-5moderate 5 - 6-14large Aneurysmal 15-16diffuse Morgan Everett MD ECHO ORDERABLES * (ABNORMAL) Urinalysis Microscopic Exam (02/28/2022 2:15 PM EDT) RBC, Urine 6(H) 0 - 3 /HPF [facility] WBC, Urine 2 0 - 3 /HPF [facility] Squamous Epithelial Cells Raw Data, Urine 1 <=4 /HPF [facility] Hyaline Casts, Urine 3(H) 0 - 2 /LPF [facility] Clean Catch Urine 02/28/2022 2:15 PM EDT 02/28/2022 3:09 PM EDT Narrative Resulting Agency Comment Spec In Lab Brittany Lvie MD URINE ORDERABLES [facility] [place] [phone] * (ABNORMAL) Urinalysis with reflex Culture (02/28/2022 2:15 PM EDT) Glucose, Urine Dipstick Negative Negative mg/dL [facility] Protein, Urine Dipstick 30(A) Negative mg/dL [facility] Bilirubin, Urine Dipstick Negative Negative mg/dL [facility] Comment: Clinical correlation required for positive Urine Bilirubin results as false positive may occur with some drugs and drug related products. If a false positive is suspected a serum total bilirubin should be considered if clinically indicated. Urobilinogen, Urine Dipstick Normal Normal mg/dL [facility] pH, Urn (dipstick) 5.0 5.0 - 8.0 [facility] Blood, Urine Dipstick Negative Negative mg/dL [facility] Ketone, Urine Dipstick Trace(A) Negative mg/dL [facility] Nitrite, Urine Dipstick Negative Negative [facility] Leukocytes, Urine Dipstick Negative Negative [facility] Appearance, Urine Dipstick Clear Clear [facility] Specific [place] Urine Automated 1.020 1.005 - 1.030 [facility] Color, Urine Dipstick Yellow Yellow [facility] Reflex to Culture No [facility] Clean Catch Urine 02/28/2022 2:15 PM EDT 02/28/2022 3:09 PM EDT Narrative Resulting Agency Comment Spec In Lab Morgan Everett MD URINE ORDERABLES Performing Organization Address City/State/[facility] Co ri Phone Number [facility] [place] [address] * US Cardiac (POCUS) (02/28/2022 12:56 PM EDT) Anatomical Region Laterality Modality Cardiac Other 02/28/2022 12:5 6 PM EDT Narrative 02/28/2022 3:05 PM EDT Exam Information A focused ultrasound exam of the heart was performed to evaluate for pericardial effusion, tamponade, right ventricular strain, severe hypovolemia, as well as gross abnormalities of cardiac anatomy and systolic function.: Indication(s) The ultrasound was performed with the following indications: : Dyspnea Views The pericardial sac, myocardium, and 4 chambers were identified using the following views: : Subxiphoid 4-chamber,Parasternal long-axis ,Parasternal short-axis ,Apical 4-chamber,IVC long Findings LV function:: Moderate Dysfunction (LVEF 30-50%) E-Point Septal Separation (EPSS): ??mm RV function:: Normal (RV:LV, < 0.66:1) Tricuspid Annular Plane Systolic Excursion (TAPSE): ??mm Pericardial effusion: : Absent IVC size:: Dilated IVC collapsibility:: Low collapsibility (<20%) Aortic root diameter (measured in PSLX):: Aortic root measurment:: : ??cm Other findings:: Impression Impression:: Other impression:: irregular heart rate with depressed LVEF. Confirmatory Study What confirmatory study was done:: Results:: CPT Code 95282:Limited Basic Cardiac (46744) Electronically Signed by the following Performing: ?on 15:05 Attending: Morgan Everett ??on 15:05 PDF Procedure Note Morgan Everett MD - 02/28/2022 Exam Information A focused ultrasound exam of the heart was performed to evaluate forpericardial effusion, tamponade, right ventricular strain, severe hypovolemia, as well as grossabnormalities of cardiac anatomy and systolic function.: Indication(s) The ultrasound was performed with the following indications: : Dyspnea Views The pericardial sac, myocardium, and 4 chambers were identified using thefollowing views: : Subxiphoid 4-chamber,Parasternal long-axis ,Parasternal short-axis ,Apical4-chamber,IVC long Findings LV function:: Moderate Dysfunction (LVEF 30-50%) E-Point Septal Separation (EPSS): mm RV function:: Normal (RV:LV, < 0.66:1) Tricuspid Annular Plane Systolic Excursion (TAPSE): mm Pericardial effusion: : Absent IVC size:: Dilated IVC collapsibility:: Low collapsibility (<20%) Aortic root diameter (measured in PSLX):: Aortic root measurment:: : cm Other findings:: Impression Impression:: Other impression:: irregular heart rate with depressed LVEF. Confirmatory Study What confirmatory study was done:: Results:: CPT Code 68909:Limited Basic Cardiac (66554) Electronically Signed by the following Performing: on 15:05Attending: Morgan Everett on 15:05 PDF Morgan Everett MD [facility] IMAGES * XR Chest One View (02/28/2022 12:33 PM EDT) Anatomical Region Laterality Modality Chest N/A Digital Radiogra phy Impressions 02/28/2022 12:45 PM EDT Pulmonary vascular congestion with edema and small pleural effusions. Thank you for letting us participate in the care of this patient. ??If you are a health care provider and have any questions regarding this report, please contact the number below. ??For patients who have questions please contact the health medication care manager that requested your imaging first. ? Narrative 02/28/2022 12:45 PM EDT EXAMINATION: XR CHEST ONE VIEW CLINICAL HISTORY: SOB TECHNIQUE: 1 view of the chest AP portable upright chest COMPARISON: None FINDINGS: Lungs are hypoinflated with bibasilar linear opacities and peripheral Yashira B lines. Small right greater than left pleural effusions. No pneumothorax or focal consolidation. Cardiomediastinal contours are normal for the AP portable technique. Pulmonary vasculature is slightly prominent. No free air below the diaphragm or focal extrathoracic soft tissue abnormality. No fracture. Procedure Note Marie Iqbal MD - 02/28/2022 EXAMINATION: XR CHEST ONE VIEW CLINICAL HISTORY: SOB TECHNIQUE: 1 view of the chest AP portable upright chest COMPARISON: None FINDINGS: Lungs are hypoinflated with bibasilar linear opacities and peripheralKerley B lines. Small right greater than left pleural effusions. No pneumothorax orfocal consolidation. Cardiomediastinal contours are normal for the AP portable technique.Pulmonary vasculature is slightly prominent. No free air below the diaphragm or focal extrathoracic soft tissueabnormality. No fracture. IMPRESSION Pulmonary vascular congestion with edema and small pleural effusions. Thank you for letting us participate in the care of this patient. If youare a health care provider and have any questions regarding this report,please contact the number below. For patients who have questions please contactthe health medication care manager that requested your imaging first. Morgan Everett MD IMG DX ORDERABLES * CT Head wo Contrast (Generic) (02/28/2022 12:07 PM EDT) Anatomical Region Laterality Modality Head Computed Tomogra phy 02/28/2022 12:2 8 PM EDT Impressions 02/28/2022 12:21 PM EDT No acute intracranial process. Bilateral exotropia more prominent on the left side. Recommend clinical correlation. Thank you for letting us participate in the care of this patient. ??If you are a health care provider and have any questions regarding this report, please contact the number below. ??For patients who have questions please contact the health medication care manager that requested your imaging first. ? Narrative 02/28/2022 12:21 PM EDT EXAMINATION: CT HEAD WO CONTRAST (GENERIC) CLINICAL HISTORY: Mental status change, unknown cause TECHNIQUE: CT Head was performed without contrast COMPARISON: None FINDINGS: No intracranial hemorrhages, masses, mass effect or extra-axial collections. Proportional size of the ventricles and sulci. Patchy deep white matter hypoattenuation most likely reflects small vessel ischemic disease. Bilateral exotropia is identified, more prominent on the left. Visualized paranasal sinuses are clear as are the mastoid air cells. No aggressive osseous lesions. Procedure Note Gael Salinas MD - 02/28/2022 EXAMINATION: CT HEAD WO CONTRAST (GENERIC) CLINICAL HISTORY: Mental status change, unknown cause TECHNIQUE: CT Head was performed without contrast COMPARISON: None FINDINGS: No intracranial hemorrhages, masses, mass effect orextra-axial collections. Proportional size of the ventricles and sulci. Patchy deepwhite matter hypoattenuation most likely reflects small vessel ischemicdisease. Bilateral exotropia is identified, more prominent on the left.Visualized paranasal sinuses are clear as are the mastoid air cells. No aggressiveosseous lesions. IMPRESSION No acute intracranial process. Bilateral exotropia more prominent on the left side. Recommend clinical correlation. Thank you for letting us participate in the care of this patient. If youare a health care provider and have any questions regarding this report,please contact the number below. For patients who have questions please contactthe health medication care manager that requested your imaging first. Morgan Everett MD IMG CT ORDERABLES * POCT Glucose (02/28/2022 11:42 AM EDT) Glucose, POC 134 65 - 199 mg/dL [facility] Comment: Supplemental ranges: <140 mg/dL before meals <180 mg/dL all other times of the day Blood 02/28/2022 11:4 2 AM EDT 02/28/2022 11:42 AM EDT Morgan Everett MD POINT OF CARE TEST ORDERABLES [facility] [place] [address] * (ABNORMAL) Hepatic Function Panel (02/28/2022 11:12 AM EDT) Protein, Total 6.8 6.1 - 8.0 g/dL [facility] Albumin 4.3 3.2 - 5.2 g/dL [facility] Aspartate Aminotransferase 24 0 - 39 unit/L [facility] Alanine Aminotransferase 20 0 - 55 unit/L [facility] Alkaline Phosphatase 78 40 - 130 unit/L [facility] Bilirubin, Total 1.7(H) 0.2 - 1.3 mg/dL [facility] Bilirubin, Direct 0.4(H) 0.0 - 0.3 mg/dL [facility] Blood Venous Draw / Unknown 02/28/2022 11:12 AM EDT 02/28/2022 12:09 PM EDT Narrative Resulting Agency Comment Spec In Lab Alfredito Israel MD CHEMISTRY ORDERABLE S [facility] [place] [address] * (ABNORMAL) pro-Brain Natriuretic Peptide (02/28/2022 11:12 AM EDT) NT-proBNP 1,491(H) <=124 pg/mL [facility] Blood Venous Draw / Unknown 02/28/2022 11:12 AM EDT 02/28/2022 12:09 PM EDT Narrative Resulting Agency Comment Spec In Lab Brittany Live MD CHEMISTRY ORDERABLE S Performing Organization Address City/[facility]/ZIP Co de Phone Number [facility] [place] [address] * TSH (02/28/2022 11:12 AM EDT) Thyroid Stimulating Hormone 3.59 0.27 - 4.20 mcIU/mL [facility] Comment: Reference Interval (mcIU/mL): Females: ??First Trimester: 0.23-3.88 ??Second Trimester: 0.22-3.90 ??Third Trimester: 0.44-4.66 Blood Venous Draw / Unknown 02/28/2022 11:12 AM EDT 02/28/2022 12:09 PM EDT Narrative Resulting Agency Comment Spec In Lab Brittany Live MD CHEMISTRY ORDERABLE S Performing Organization Address City/[facility]/ZIP Co de Phone Number [facility] [place] [address] * (ABNORMAL) Differential, Automated (02/28/2022 11:12 AM EDT) Neutrophil % 71.3 % [facility] Neutrophil Absolute 8.25(H) 1.70 - 6.10 x10(3)/mc L [facility] Lymph % 15.5 % [facility] Lymphocytes Abs 1.8 0.9 - 3.2 x10(3)/ L [facility] Monocyte % 11.8 % [facility] Monocyte Abs 1.4(H) 0.3 - 0.9 x10(3)/ L [facility] Eos % 0.3 % [facility] Eosinophils Abs 0.0 0.0 - 0.4 x10(3)/[facility] Basophil % 0.6 % [facility] Baso Absolute 0.1 0.0 - 0.1 x10(3)/ L [facility] Immature Gran % 0.50 % [facility] Comment: Immature granulocytes(IG's)percentage and absolute count will include metamyelocytes, myelocytes, and promyelocytes. Blood smears from CBCs yielding IG's will be scanned manually for concordance. If this scan disagrees with the automated IG or if promyelocytes are noted, a manual differential will be performed. Immature Gran Absolute 0.06(H) 0.00 - 0.04 x10(3)/ L [facility] Blood 02/28/2022 11:1 2 AM EDT 02/28/2022 11:39 AM EDT Narrative Resulting Agency Comment Spec In Lab Morgan Everett MD HEMATOLOGY ORDERAB LES Performing Organization Address City/[facility]/ZIP Co de Phone Number [facility] [place] [address] * (ABNORMAL) Hemogram (02/28/2022 11:12 AM EDT) White Blood Cell 11.6(H) 4.0 - 9.5 x10(3)/mc L [facility] Red Blood Cell 4.48(L) 4.58 - 5.54 x10(6)/mc L [facility] Hemoglobin 13.5(L) 13.7 - 16.5 g/dL [facility] Hematocrit 43.2 40.5 - 48.5 % [facility] Mean Cell Volume 96.4(H) 82.9 - 93.1 fL [facility] Mean Cell Hemoglobin 30.1 27.5 - 32.1 pg [facility] Mean Cell Hemoglobin Concentration 31.3(L) 32.0 - 35.7 g/dL [facility] Platelet 108(L) 145 - 357 x10(3)/[facility] RDW Standard Deviation 49.1(H) 36.0 - 45.0 [facility] RDW coefficient of variation 14.0(H) 11.4 - 13.8 % [facility] Mean Platelet Volume 12.6 7.6 - 12.9 [facility] NRBC% auto 0.3 % [facility] NRBC Absolute 0.030(H) 0.000 - 0.000 x10(3)/mc L [facility] Blood 02/28/2022 11:1 2 AM EDT 02/28/2022 11:39 AM EDT Narrative Resulting Agency Comment Spec In Lab Morgan Everett MD HEMATOLOGY ORDERAB LES [facility] [place] [address] * Phosphorus (02/28/2022 11:12 AM EDT) Phosphorus 3.7 2.5 - 4.5 mg/dL [facility] Blood 02/28/2022 11:1 2 AM EDT 02/28/2022 11:39 AM EDT Narrative Resulting Agency Comment Spec In Lab Morgan Everett MD CHEMISTRY ORDERABL ES Performing Organization Address [facility] Co de Phone Number [facility] [place] [address] * Magnesium (02/28/2022 11:12 AM EDT) Magnesium 0.77 0.69 - 1.07 mmol/L [facility] Blood 02/28/2022 11:1 2 AM EDT 02/28/2022 11:39 AM EDT Narrative Resulting Agency Comment Spec In Lab Morgan Everett MD CHEMISTRY ORDERABL ES Performing Organization Address [facility] Co de Phone Number [facility] [place] [address] * (ABNORMAL) Basic Metabolic Panel (non-fasting) (02/28/2022 11:12 AM EDT) Glucose 150 65 - 199 mg/dL [facility] Comment:Diabetes: >=200 mg/d L plus symptoms Blood Urea Nitrogen 29(H) 10 - 20 mg/dL [facility] Creatinine 0.95 0.80 - 1.50 mg/dL [facility] Sodium 139 135 - 145 mmol/L [facility] Potassium 4.5 3.5 - 5.0 mmol/L [facility] Comment: Please note: ??Patients with WBC >100,000 may have falsely elevated Potassium levels. ??For accurate Potassium quantification in these patients send serum separator tube (gold top) for subsequent determinations. ??Contact the Clinical Chemistry Laboratory if there are any questions. Chloride 102 98 - 107 mmol/L [facility] Carbon Dioxide 23 22 - 31 mmol/L [facility] Anion Gap 14 5 - 15 mmol/L [facility] Calcium 9.2 8.5 - 10.5 mg/dL [facility] Est Glomerular Filtration Rate 85 >=60 mL/min/1. 73 m?? [facility] Comment: This patient's estimated [...] and symptoms in addition to eGFR. Blood 02/28/2022 11:1 2 AM EDT 02/28/2022 11:39 AM EDT Narrative Resulting Agency Comment Spec In Lab Morgan Everett MD CHEMISTRY ORDERABL ES Performing Organization Address [facility] Co de Phone Number [facility] [place] [address] * EKG 12 Lead (02/28/2022 10:50 AM EDT) Ventricular rate 153 BPM MUSE SYSTEM Atrial Rate 156 BPM MUSE SYSTEM QRS Duration 82 ms MUSE SYSTEM Q-T Interval 322 ms MUSE SYSTEM QTC Calculated (Bezet) 514 ms MUSE SYSTEM Calculated R [place] -21 degrees MUSE SYSTEM Calculated T [place] -4 degrees MUSE SYSTEM INTERPRETATION Atrial fibrillation with rapid ventricular response Inferior infarct (cited on or before 10-JAN-2022) Abnormal ECG When compared with ECG of 10-JAN-2022 16:23, Vent. rate has increased BY ??59 BPM Confirmed by MD Chris Danette ([id number]) on 03/01/2022 8:37:57 AM MUSE SYSTEM 02/28/2022 10:5 0 AM EDT 03/01/2022 8:37 AM EDT Morgan Everett MD ECG ORDERABLES Performing Organization Address [facility] Co de Phone Number MUSE SYSTEM documented in this encounter Visit Diagnoses Diagnosis Atrial fibrillation- Primary Chronic atrial fibrillation Atrial fibrillation CHF (congestive heart failure) Congestive heart failure, unspecified Typical atrial flutter Atrial flutter Longstanding persistent atrial fibrillation Drug-induced ITP Other secondary thrombocytopenia Acute systolic heart failure JEEVAN on CPAP Obstructive sleep apnea (adult) (pediatric) Status post ablation of atrial flutter 01/02/2022 Other postprocedural status Type 2 diabetes mellitus Type II or unspecified type diabetes mellitus without mention of complication, not stated as uncontrolled Acute hypoxemic respiratory failure Macrocytic anemia Unspecified deficiency anemia Drug-induced ITP Other secondary thrombocytopenia documented in this encounter Admitting Diagnoses Diagnosis CHF (congestive heart failure) Congestive heart failure, unspecified documented in this encounter Administered Medications Inactive Administered Medications - up to 3 most recent administrations Medication Order MAR Action Action Date Dose Rate Site AMIOdarone (Nexterone) (1.8 mg/mL) in dextrose (iso-osmotic) infusion 0.5-1 mg/min (16.6667-33.3333 mL/hr, rounded to 16.7-33.3 mL/hr), Intravenous, CONTINUOUS, Starting on Sat03/01/22 at 1245, Until Sat03/02/22 at 0746, Slow Load. Initiate loading infusion (slow): 1 mg/minute over 6 hours, then decrease to maintenance infusion: 0.5 mg/minute over 18 hours. At 24 hours from start time, call MD regarding infusion or change to oral dosing. Rate/Dose Verify 03/02/2022 7:00 AM EDT 0.5 mg/min 16.7 mL/hr Rate/Dose Verify 03/02/2022 6:00 AM EDT 0.5 mg/min 16.7 mL /hr New Bag 03/02/2022 5:39 AM EDT 0.5 mg/min 16.7 mL/hr AMIOdarone (Paceron) tablet 400 mg 400 mg, Oral, 2 TIMES DAILY, 14 doses, First dose on Sat03/02/22 at 0900, Last dose on Sat03/08/22 at 2100, Routine Given 03/04/2022 8:27 AM EDT 400 mg Given 03/03/2022 8:23 PM EDT 400 mg Given 03/03/2022 8:12 AM EDT 400 mg bumetanide (Bumex) tablet 2 mg 2 mg, Oral, 2 TIMES DAILY, First dose on Sat03/04/22 at 0900, Until Discontinued, Routine Given 03/05/2022 8:16 AM EDT 2 mg Given 03/04/2022 8:53 PM EDT 2 mg Given 03/04/2022 8:28 AM EDT 2 mg bumetanide (Bumex) tablet 2 mg 2 mg, Oral, DAILY, First dose (after last modification) on Sat03/06/22 at 0900, Until Discontinued, Routine Given 03/06/2022 8:17 AM EDT 2 mg dexAMETHasone (Decadron) tablet 16 mg 16 mg, Oral, DAILY, 4 doses, First dose on Sat03/07/22 at 1445, Last dose on Sat03/10/22 at 0900, Routine Given 03/10/2022 8:06 AM EDT 16 mg Given 03/09/2022 8:25 AM EDT 16 mg Given 03/08/2022 9:19 AM EDT 16 mg dextrose 10% infusion 250 mL, at 1,000 mL/hr, Intravenous, EVERY 30 MIN PRN, Starting on Sat03/09/22 at 1706, Until Sat03/11/22 at 1613, For BG 50-70 mg/dL: Oral treatment preferred: [...] for the duration of the active insulin. digoxin (LANOXIN) injection 125 mcg 125 mcg, Intravenous, EVERY 6 HOURS, 5 doses, First dose on Sat03/07/22 at 1000, Last dose on Sat03/08/22 at 1000, Routine Given 03/08/2022 9:19 AM EDT 125 mcg Given 03/08/2022 5:22 AM EDT 125 mcg Given 03/07/2022 10:15 PM EDT 125 mcg digoxin (LANOXIN) injection 250 mcg 250 mcg, Intravenous, EVERY 6 HOURS, First dose on Sat02/28/22 at 1800, Until Discontinued, Routine Given 02/28/2022 6:28 PM EDT 250 mcg digoxin (LANOXIN) injection 250 mcg 250 mcg, Intravenous, EVERY 6 HOURS, 3 doses, First dose (after last modification) on Sat03/01/22 at 0000, Last dose on Sat03/01/22 at 1200, Routine Given 03/01/2022 6:00 AM EDT 250 mcg Given 03/01/2022 12:22 AM EDT 250 mcg digoxin (Lanoxin) tablet 125 mcg 125 mcg, Oral, DAILY, First dose on Sat03/08/22 at 1345, Until Discontinued, Routine Given 03/11/2022 8:44 AM EDT 125 mcg Given 03/10/2022 8:06 AM EDT 125 mcg Given 03/09/2022 8:25 AM EDT 125 mcg enoxaparin (Lovenox) (100 mg/1 mL) subcutaneous injection 100 mg 100 mg, Subcutaneous, 2 TIMES DAILY, First dose on Sat03/05/22 at 2100, Until Discontinued, Hold for platelets <20, Routine Given 03/06/2022 8:1 8 AM EDT 100 mg Given 03/05/2022 8:24 PM EDT 100 mg enoxaparin (Lovenox) (40 mg/0.4 mL) subcutaneous injection 40 mg 40 mg, Subcutaneous, EVERY 24 HOURS SCHEDULED (Daily), First dose on Sat03/06/22 at 1515, Until Discontinued, Routine Given 03/07/2022 8:30 AM EDT 40 mg enoxaparin (Lovenox) (60 mg/0.6 mL) subcutaneous injection 60 mg 60 mg, Subcutaneous, NIGHTLY, First dose on Sat03/07/22 at 2100, Until Discontinued, Heme recs for AFIB ac in light of thrombocytopenia, Routine Given 03/07/2022 10:14 PM EDT 60 mg enoxaparin (Lovenox) (60 mg/0.6 mL) subcutaneous injection 60 mg 60 mg, Subcutaneous, DAILY, First dose on Sat03/08/22 at 0930, Until Discontinued, Hold for platelets <10, Routine Given 03/10/2022 8:07 AM EDT 60 mg Abdominal Tissue Given 03/09/2022 8:25 AM EDT 60 mg Given 03/08/2022 9:19 AM EDT 60 mg furosemide (Lasix) (1 mg/mL) infusion 100 mg vial attached to sodium chloride 0.9% 100 mL Mini-Bag Plus 5 mg/hr (5 mL/hr), Intravenous, CONTINUOUS, Starting on Sat02/28/22 at 1739, Until Sat03/01/22 at 0334, Routine Rate/Dose Verify 03/01/2022 12:00 AM EDT 5 mg/hr 5 mL/hr Rate/Dose Verify 02/28/2022 10:00 PM EDT 5 mg/hr 5 mL/h r Rate/Dose Verify 02/28/2022 8:30 PM EDT 5 mg/hr 5 mL/hr furosemide (Lasix) (10 mg/mL) injection 40 mg 40 mg, Intravenous, ONCE, 1 dose, On Sat02/28/22 at 1355 Given 02/28/2022 1:58 PM EDT 40 mg furosemide (Lasix) (10 mg/mL) injection 40 mg 40 mg, Intravenous, ONCE, 1 dose, On Sat03/01/22 at 1845 Given 03/01/2022 6:44 PM EDT 40 mg furosemide (Lasix) (10 mg/mL) injection 40 mg 40 mg, Intravenous, ONCE, 1 dose, On Sat03/02/22 at 1100 Given 03/02/2022 10:18 AM EDT 40 mg furosemide (Lasix) (10 mg/mL) injection 40 mg 40 mg, Intravenous, ONCE, 1 dose, On Sat03/02/22 at 1830 Given 03/02/2022 5:48 PM EDT 40 mg glucagon (Glucagen) (1 mg/mL) injection solution 1 mg 1 mg, Intramuscular, EVERY 30 MIN PRN, Starting on Sat03/09/22 at 1706, Until Sat03/11/22 at 1613, Low blood sugar, For BG 50-70 mg/dL: [...] Buccal, EVERY 30 MIN PRN, Starting on Sat03/09/22 at 1706, Until Sat03/11/22 at 1613, Low blood sugar, For BG 50-70 mg/dL: [...] weight of tube = 37.5 grams.), Routine immune globulin (Privigen) (100 mg/mL) infusion 65 g 65 g (rounded from 66.1 g = 1,000 mg/kg/dose ? 66.1 kg Dalton weight), Intravenous, ONCE, 1 dose, On Sat03/06/22 at 1745, Administer at room temperature using a separate line. Do not piggyback. To calculate the initial rate and subsequent rate adjustments, click on the link (in the reference section) to the Intravenous Immune Globulin (IVIG) Dose Rate Calculator Adult [employer] and input the IDEAL body weight which is available in the ordered dose field in the MAR. Increase the rate every 30 minutes as outlined in the Intravenous Immune Globulin (IVIG) Dose Rate Calculator Adult [employer]. If actual body weight (ABW) is less than ideal body weight (IBW), use actual body weight for calculating dose Assess and Monitor: Obtain baseline VS followed by every 15 min for the first hour after starting the infusion, 15 minutes after every rate change, hourly until the end of the infusion and at the end of the infusion. The maximum rate of administration is ordered by the prescriber in the order question. Adverse reactions are typically rate based. If side effects occur, page team. Rate may be reduced or infusion paused until symptoms subside, then restarted. Assess for vaccine administration: Do not administer if patient has had live virus vaccine within past 3 months (Zoster, Varicella or MMR). Notify provider. , Routine, As of March 2021 IVIG supply has stabilized; the below listed indications are approved for use via [employer]. All other indications require approval by [employer] Chair or [employer]. Immune thrombocytopenia (ITP), What is the maximum rate of administration? 0.033 mL/kg/min (1.98 mL/kg/hour) for: ITP / Age 65 years or older / Renal Insufficiency New Bag 03/06/2022 6:32 PM EDT 65 g 50 mL/hr immune globulin (Privigen) (100 mg/mL) infusion 65 g 65 g (rounded from 66.1 g = 1,000 mg/kg/dose ? 66.1 kg [place] weight), Intravenous, ONCE, 1 dose, On Sat03/07/22 at 1600, Administer at room temperature using a separate line. Do not piggyback. To calculate the initial rate and subsequent rate adjustments, click on the link (in the reference section) to the Intravenous Immune Globulin (IVIG) Dose Rate Calculator Adult [employer] and input the IDEAL body weight which is available in the ordered dose field in the MAR. Increase the rate every 30 minutes as outlined in the Intravenous Immune Globulin (IVIG) Dose Rate Calculator Adult [employer]. If actual body weight (ABW) is less than ideal body weight (IBW), use actual body weight for calculating dose Assess and Monitor: Obtain baseline VS followed by every 15 min for the first hour after starting the infusion, 15 minutes after every rate change, hourly until the end of the infusion and at the end of the infusion. The maximum rate of administration is ordered by the prescriber in the order question. Adverse reactions are typically rate based. If side effects occur, page team. Rate may be reduced or infusion paused until symptoms subside, then restarted. Assess for vaccine administration: Do not administer if patient has had live virus vaccine within past 3 months (Zoster, Varicella or MMR). Notify provider. , Routine, As of March 2021 IVIG supply has stabilized; the below listed indications are approved for use via P[employer]. All other indications require approval by [employer]T Chair or [employer] Teacher. Immune thrombocytopenia (ITP), What is the maximum rate of administration? 0.033 mL/kg/min (1.98 mL/kg/hour) for: ITP / Age 65 years or older / Renal Insufficiency New Bag 03/07/2022 5:35 PM EDT 65 g 20 mL/hr immune globulin (Privigen) infusion - administration reminder NOT APPLICABLE, EVERY HOUR, First dose on Sat03/06/22 at 1845, 2 doses, Last dose on Sat03/06/22 at 2000, This order is a reminder for nursing staff to administer subsequent bottles (2nd, 3rd, 4th, etc) of IVIG to reach the intended dose for the patient. Verifying pharmacist will update the # of doses to equal the total # of bottles minus the first. Given 03/06/2022 9:44 PM EDT Given 03/06/2022 7:47 PM EDT 20 g immune globulin intravenous solution - administration reminder 1 each, NOT APPLICABLE, EVERY HOUR, First dose (after last reorder) on Sat03/07/22 at 1600, 2 doses, Last dose on Sat03/07/22 at 1700, This order is a reminder for nursing staff to administer subsequent bottles (2nd, 3rd, 4th, etc) of IVIG to reach the intended dose for the patient. Verifying pharmacist will update the # of doses to equal the total # of bottles minus the first. Given 03/07/2022 4:00 PM EDT 1 each immune globulin intravenous solution - administration reminder 1 each, NOT APPLICABLE, EVERY HOUR, First dose (after last reorder) on Sat03/07/22 at 1845, 2 doses, Last dose on Sat03/07/22 at 2000, This order is a reminder for nursing staff to administer subsequent bottles (2nd, 3rd, 4th, etc) of IVIG to reach the intended dose for the patient. Verifying pharmacist will update the # of doses to equal the total # of bottles minus the first. Given 03/07/2022 8:41 PM EDT 1 each Given 03/07/2022 6:45 PM EDT 1 each insulin glargine-ygfn (Semglee) (100 unit/mL) subcutaneous injection vial 10 Units 10 Units, Subcutaneous, DAILY, First dose on Sat03/08/22 at 0900, Until Discontinued, Routine Given 03/09/2022 8:25 AM EDT 10 Units Given 03/08/2022 9:19 AM EDT 10 Units insulin glargine-ygfn (Semglee) (100 unit/mL) subcutaneous injection vial 14 Units 14 Units, Subcutaneous, NIGHTLY, First dose on Sat03/09/22 at 2100, Until Discontinued, Routine Given 03/10/2022 8:12 PM EDT 14 Units Given 03/09/2022 9:22 PM EDT 14 Units insulin lispro (HumaLOG;Admelog) (100 unit/mL) subcutaneous injection vial 0-8 Units 0-8 Units, Subcutaneous, 3 TIMES DAILY WITH MEALS, First dose on Sat03/01/22 at 0800, Until Discontinued, [employer] Give 1 unit for every 10 grams carbohydrate. Hold if not eating or if BG less than 70 mg/dL., Routine Given 03/07/2022 6:20 PM EDT 7 Units Given 03/07/2022 12:58 PM EDT 6 Units Given 03/07/2022 8:39 AM EDT 6 Units insulin lispro (HumaLOG;Admelog) (100 unit/mL) subcutaneous injection vial 0-8 Units 0-8 Units, Subcutaneous, 3 TIMES DAILY WITH MEALS, First dose on Sat03/09/22 at 1800, Until Discontinued, ME[employer]IATED Give 1 unit for every 10 grams carbohydrate. Hold if not eating or if BG less than 70 mg/dL., Routine Given 03/11/2022 12:29 PM EDT 7 Units Given 03/11/2022 8:09 AM EDT 6 Units Given 03/10/2022 5:17 PM EDT 7 Units insulin lispro (HumaLOG;Admelog) (100 unit/mL) subcutaneous injection vial 1-4 Units 1-4 Units, Subcutaneous, EVERY 4 HOURS SCHEDULED, First dose on Sat02/28/22 at 2130, Until Discontinued, CORRECTION BOLUS [1-4 Units] Sensitive Sliding Scale (BG in mg/dL): Correction factor 40 (1 unit of insulin is expected to drop the glucose 40 mg/dL) BG 160 - 200 Give 1 unit BG 201 - 240 Give 2 units BG 241 - 280 Give 3 units BG greater than 280, give 4 units and recheck BG in 2 hours. - If recheck BG is LESS than 280, give no insulin and resume schedule - If recheck BG is GREATER than 280, give 4 units and repeat BG in 2 hours (no more than 3 times) & call for new insulin orders. DO NOT hold if NPO, unless specifically directed to do so by written order. Per Blood Glucose Monitoring Policy, re-check a BG of > 240 mg/dL in 2 hours., Routine Given 03/08/2022 5:21 AM EDT 2 Units Given 03/07/2022 11:40 PM EDT 2 Units Given 03/07/2022 8:01 PM EDT 2 Units insulin lispro (HumaLOG;Admelog) (100 unit/mL) subcutaneous injection vial 1-6 Units 1-6 Units, Subcutaneous, 3 TIMES DAILY BEFORE MEALS, First dose on Sat03/08/22 at 1245, Until Discontinued, CORRECTION BOLUS [1-6 Units] Moderate [...] 240 mg/dL in 2 hours., Routine Given 03/09/2022 3:03 PM EDT 6 Units Given 03/09/2022 12:22 PM EDT 6 Units Given 03/09/2022 8:26 AM EDT 4 Units insulin lispro (HumaLOG;Admelog) (100 unit/mL) subcutaneous injection vial 2-12 Units 2-12 Units, Subcutaneous, 3 TIMES DAILY BEFORE MEALS, First dose on Sat03/09/22 at 1800, Until Discontinued, CORRECTION BOLUS [2-12 Units] Resistant Sliding Scale (BG in mg/dL): Correction Factor 10 (1 unit of insulin is expected to drop the glucose 10 mg/dL) BG 140 - 160 Give 2 units BG 161 - 180 Give 4 units BG 181 - 200 Give 6 units BG 201 - 220 Give 8 units BG 221 - 240 Give 10 units BG greater than 240, give 12 units and recheck BG in 2 hours. - If recheck BG is LESS than 240, give no insulin and resume schedule. - If recheck BG is GREATER than 240, give 12 units and repeat BG in 2 hours (no more than 3 times) & call for new insulin orders. DO NOT hold if NPO, unless specifically directed to do so by written order. Per Blood Glucose Monitoring Policy, re-check a BG of > 240 mg/dL in 2 hours, Routine Given 03/11/2022 11:58 AM EDT 10 Units Given 03/11/2022 8:09 AM EDT 6 Units Given 03/10/2022 4:42 PM EDT 6 Units magnesium sulfate 2 g in sterile water 50 mL infusion 2 g, Intravenous, ONCE, 1 dose, On Sat02/28/22 at 1712, Administer over 120 Minutes New Bag 02/28/2022 5:25 PM EDT 2 g 25 mL/hr magnesium sulfate 2 g in sterile water 50 mL infusion 2 g, Intravenous, ONCE, 1 dose, On Susanne 03/01/22 at 0630, Administer over 120 Minutes Rate/Dose Verify 03/01/2022 6:00 AM EDT 25 mL/hr New Bag 03/01/2022 5:57 AM EDT 2 g 25 mL/hr metFORMIN (Glucophage) tablet 1,000 mg 1,000 mg, Oral, 2 TIMES DAILY WITH MEALS, First dose on Sat03/02/22 at 0845, Until Discontinued, Routine Given 03/11/2022 8:09 AM EDT 1,000 mg Given 03/10/2022 5:17 PM EDT 1,000 mg Given 03/10/2022 8:06 AM EDT 1,000 mg metoprolol succinate XL (Toprol-XL) tablet 100 mg 100 mg, Oral, DAILY, First dose (after last modification) on Sat03/06/22 at 0900, Until Discontinued, DO NOT CRUSH OR OPEN, Routine Given 03/06/2022 8:17 AM EDT 100 mg metoprolol succinate XL (Toprol-XL) tablet 100 mg 100 mg, Oral, DAILY, First dose (after last modification) on Sat03/10/22 at 0900, Until Discontinued, DO NOT CRUSH OR OPEN, Routine Given 03/11/2022 8:44 AM EDT 100 mg Given 03/10/2022 8:06 AM EDT 100 mg metoprolol succinate XL (Toprol-XL) tablet 150 mg 150 mg, Oral, DAILY, First dose (after last modification) on Sat03/07/22 at 0900, Until Discontinued, DO NOT CRUSH OR OPEN, Routine Given 03/09/2022 8:25 AM EDT 150 mg Given 03/08/2022 8:41 AM EDT 150 mg Given 03/07/2022 8:30 AM EDT 150 mg metoprolol succinate XL (Toprol-XL) tablet 25 mg 25 mg, Oral, ONCE, 1 dose, On Sat03/04/22 at 1230, DO NOT CRUSH OR OPEN, Routine Given 03/04/2022 12:44 PM EDT 25 mg metoprolol succinate XL (Toprol-XL) tablet 25 mg 25 mg, Oral, ONCE, 1 dose, On Sat03/05/22 at 1115, DO NOT CRUSH OR OPEN, Routine Given 03/05/2022 11:32 AM EDT 25 mg metoprolol succinate XL (Toprol-XL) tablet 25 mg 25 mg, Oral, ONCE, 1 dose, On Sat03/06/22 at 0930, DO NOT CRUSH OR OPEN, Routine Given 03/06/2022 9:45 AM EDT 25 m g metoprolol succinate XL (Toprol-XL) tablet 25 mg 25 mg, Oral, ONCE, 1 dose, On Sat03/06/22 at 1430, DO NOT CRUSH OR OPEN, Routine Given 03/06/2022 3:29 PM EDT 25 m g metoprolol succinate XL (Toprol-XL) tablet 37.5 mg 37.5 mg, Oral, DAILY, First dose on Sat03/02/22 at 0900, Until Discontinued, DO NOT CRUSH OR OPEN Hold for HR <60, Routine Given 03/02/2022 8:57 AM EDT 37.5 mg metoprolol succinate XL (Toprol-XL) tablet 50 mg 50 mg, Oral, DAILY, First dose (after last modification) on Sat03/03/22 at 0900, Until Discontinued, DO NOT CRUSH OR OPEN Hold for HR <60, Routine Given 03/04/2022 8:28 AM EDT 50 mg Given 03/03/2022 8:12 AM EDT 50 mg metoprolol succinate XL (Toprol-XL) tablet 75 mg 75 mg, Oral, DAILY, First dose on Sat03/04/22 at 0900, Until Discontinued, DO NOT CRUSH OR OPEN, Routine Given 03/05/2022 8:17 AM EDT 75 mg metoprolol tartrate (Lopressor) tablet 12.5 mg 12.5 mg, Oral, EVERY 6 HOURS SCHEDULED, First dose on Sat03/01/22 at 1800, Until Discontinued, Routine Given 03/02/2022 5:40 AM EDT 12.5 mg Given 03/01/2022 11:48 PM EDT 12.5 mg Given 03/01/2022 5:05 PM EDT 12.5 mg ondansetron (Zofran) tablet 8 mg 8 mg, Oral, EVERY 8 HOURS SCHEDULED, First dose on Sat03/07/22 at 0915, Until Discontinued, Routine Given 03/08/2022 5:22 AM EDT 8 mg Given 03/07/2022 10:15 PM EDT 8 mg Given 03/07/2022 10:50 AM EDT 8 mg ondansetron (Zofran) tablet 8 mg 8 mg, Oral, EVERY 8 HOURS PRN, Starting on Sat03/08/22 at 1330, Until Sat03/11/22 at 1613, Nausea, Routine perflutren protein-A microsphers (Optison) (0.22 mg/mL) injection 0.5 mL 0.5 mL, Intravenous, ONCE PRN, 1 dose, Starting on Sat02/28/22 at 1544, Until Sat02/28/22 at 1500, for enhancement of sub-optimal echo images, Echo Lab (Intra-Procedure), Routine Given 02/28/2022 3:00 PM EDT 2.1 mLs polyethylene glycoL (Miralax) packet 17 g 17 g, Oral, DAILY, First dose on Sat03/02/22 at 1615, Until Discontinued, Routine Given 03/02/2022 5:15 PM EDT 17 g potassium chloride ER (K-Dur/Klor-Con) tablet 20 mEq 20 mEq, Oral, EVERY 4 HOURS PRN, Starting on Sat03/01/22 at 0541, Until Sat03/11/22 at 1613, hypokalemia, Administer for serum potassium (mMol/L) of 3.9 - 4 See instructions for Potassium Protocol in online policies., Routine Given 03/05/2022 5:54 PM EDT 20 mEq Given 03/02/2022 12:45 PM EDT 20 mEq Given 03/02/2022 10:17 AM EDT 20 mEq potassium chloride ER (K-Dur/Klor-Con) tablet 40 mEq 40 mEq, Oral, EVERY 4 HOURS PRN, Starting on Sat03/01/22 at 0541, Until Sat03/07/22 at 1239, hypokalemia, Administer for serum potassium (mMol/L) of 3.6 - 3.8 See instructions for Potassium Protocol in online policies., Routine Given 03/05/2022 11:33 AM EDT 40 mEq Given 03/05/2022 5:18 AM EDT 40 mEq Given 03/03/2022 6:55 AM EDT 40 mEq rivaroxaban (Xarelto) tablet 20 mg 20 mg, Oral, EVERY EVENING, First dose on Sat02/28/22 at 1816, Until Discontinued, Administer with evening meal, Routine, Restricted anticoagulant, choose the most appropriate response: Approved indication of non-valvular atrial fibrillation Given 03/04/2022 5:00 PM EDT 20 mg Given 03/03/2022 5:53 PM EDT 20 mg Given 03/02/2022 5:16 PM EDT 20 mg rivaroxaban (Xarelto) tablet 20 mg 20 mg, Oral, DAILY, First dose on Sat03/11/22 at 0900, Until Discontinued, Must be taken with a meal, Routine, Restricted anticoagulant, choose the most appropriate response: Continuation of ongoing therapy Given 03/11/2022 8:45 AM EDT 20 mg sodium chloride 0.9 % (flush) (BD PosiFlush Normal Saline 0.9) flush 5 mL 5 mL, Intravenous, 2 TIMES DAILY, First dose on Sat02/28/22 at 2100, Until Discontinued, Routine Given 03/11/2022 9:00 AM EDT 5 mLs Given 03/10/2022 9:00 PM EDT 5 mLs Given 03/10/2022 9:00 AM EDT 5 mLs sodium chloride 0.9 % (flush) (BD PosiFlush Normal Saline 0.9) flush 5-20 mL 5-20 mL, Intravenous, EVERY 1 MIN PRN, Starting on Sat02/28/22 at 1855, Until 03/11/22 at 1613, flush, Flush pertains to all indwelling lines. Flush per protocol found in the job aid using the link provided on this medication record., Routine Given 03/05/2022 8:18 AM EDT 5 mLs torsemide (Demadex) tablet 40 mg 40 mg, Oral, ONCE, 1 dose, On 03/03/22 at 1400, Routine Given 03/03/2022 2:44 PM EDT 40 mg documented in this encounter Active and Recently Administered Medications Times are shown in EDT. Scheduled Medication Order 03/09/2022 03/10/2022 03/11/2022 dexAMETHasone (Decadron) tablet 16 mg (COMPLETED) 16 mg, Oral, DAILY, 4 doses, First dose on Sat03/07/22 at 1445, Last dose on Sat03/10/22 at 0900, Routine 0825 (Given - Provider: Ehsan Guzman RN) 0806 (Given - Provider: Katie Berman RN) digoxin (Lanoxin) tablet 125 mcg 125 mcg, Oral, DAILY, First dose on Sat03/08/22 at 1345, Until Discontinued, Routine 0825 (Given - Provider: Ehsan Guzman RN) 08 (Given - Provider: Katie Berman RN) 0844 (Given - Provider: Annetta Man RN) enoxaparin (Lovenox) (60 mg/0.6 mL) subcutaneous injection 60 mg (CANCELED) 60 mg, Subcutaneous, DAILY, First dose on Sat03/08/22 at 0930, Until Discontinued, Hold for platelets <10, Routine 0825 (Given - Provider: Ehsan Guzman RN) 0807 (Given - Provider: Katie Berman RN) insulin glargine-ygfn (Semglee) (100 unit/mL) subcutaneous injection vial 10 Units (CANCELED) 10 Units, Subcutaneous, DAILY, First dose on Sat03/08/22 at 0900, Until Discontinued, Routine 08 (Given - Provider: Ehsan Guzman RN) insulin glargine-ygfn (Semglee) (100 unit/mL) subcutaneous injection vial 14 Units 14 Units, Subcutaneous, NIGHTLY, First dose on Sat03/09/22 at 2100, Until Discontinued, Routine 2121 (Given - Provider: Brittany Marshall RN) 2011 (Given - Provider: Brittany Marshall RN) insulin lispro (HumaLOG;Admelog) (100 unit/mL) subcutaneous injection vial 0-8 Units 0-8 Units, Subcutaneous, 3 TIMES DAILY WITH MEALS, First dose on Sat03/09/22 at 1800, Until Discontinued, MEAL ASSOCIATED Give 1 unit for every 10 grams carbohydrate. Hold if not eating or if BG less than 70 mg/dL., Routine 1715 (Given - Provider: Ehsan Guzman RN) 0809 (Given - Provider: Katie Berman RN)1258 (Given - Provider: Katie Berman RN)1717 (Given - Provider: Katie Berman RN) 0809 (Given - Provider: Annetta Man, JAX)1229 (Given - Provider: Annetta Man, JAX) insulin lispro (HumaLOG;Admelog) (100 unit/mL) subcutaneous injection vial 1-6 Units (CANCELED)(Linked Group 1) 1-6 Units, Subcutaneous, 3 TIMES DAILY BEFORE MEALS, First dose on Sat03/08/22 at 1245, Until Discontinued, CORRECTION BOLUS [1-6 Units] Moderate [...] > 240 mg/dL in 2 hours., Routine 0826 (Given - Provider: Ehsan Guzman RN)1222 (Given - Provider: Ehsan Guzman, JAX)1503 (Given - Provider: Ehsan Guzman, JAX)1630 (Not Given - Provider: Ehsan Guzman RN - Reason: Per MD Order) insulin lispro (HumaLOG;Admelog) (100 unit/mL) subcutaneous injection vial 2-12 Units(Linked Group 2) 2-12 Units, Subcutaneous, 3 TIMES DAILY BEFORE MEALS, First dose on Sat03/09/22 at 1800, Until Discontinued, CORRECTION BOLUS [2-12 Units] Resistant Sliding Scale (BG in mg/dL): Correction Factor 10 (1 unit of insulin is expected to drop the glucose 10 mg/dL) BG 140 - 160 Give 2 units BG 161 - 180 Give 4 units BG 181 - 200 Give 6 units BG 201 - 220 Give 8 units BG 221 - 240 Give 10 units BG greater than 240, give 12 units and recheck BG in 2 hours. - If recheck BG is LESS than 240, give no insulin and resume schedule. - If recheck BG is GREATER than 240, give 12 units and repeat BG in 2 hours (no more than 3 times) & call for new insulin orders. DO NOT hold if NPO, unless specifically directed to do so by written order. Per Blood Glucose Monitoring Policy, re-check a BG of > 240 mg/dL in 2 hours, Routine 1715 (Given - Provider: Ehsan Guzman RN) 0808 (Given - Provider: Katie Berman RN)1200 (Given - Provider: Katie Berman RN)1450 (Given - Provider: Katie Berman RN)1642 (Given - Provider: Katie Berman RN) 0809 (Given - Provider: Annetta Man, JAX)1158 (Given - Provider: Annetta Man, JAX) metFORMIN (Glucophage) tablet 1,000 mg 1,000 mg, Oral, 2 TIMES DAILY WITH MEALS, First dose on Sat03/02/22 at 0845, Until Discontinued, Routine 0825 (Given - Provider: Ehsan Guzman RN)1714 (Given - Provider: Ehsan Guzman RN) 0806 (Given - Provider: Katie Berman RN)1717 (Given - Provider: Katie Berman RN) 0809 (Given - Provider: Annetta Man RN) metoprolol succinate XL (Toprol-XL) tablet 100 mg 100 mg, Oral, DAILY, First dose (after last modification) on Sat03/10/22 at 0900, Until Discontinued, DO NOT CRUSH OR OPEN, Routine 0806 (Given - Provider: Katie Berman RN) 0844 (Given - Provider: Annetta Man RN) metoprolol succinate XL (Toprol-XL) tablet 150 mg (CANCELED) 150 mg, Oral, DAILY, First dose (after last modification) on Sat03/07/22 at 0900, Until Discontinued, DO NOT CRUSH OR OPEN, Routine 0825 (Given - Provider: Ehsan Guzman RN) polyethylene glycoL (Miralax) packet 17 g 17 g, Oral, DAILY, First dose on Sat03/02/22 at 1615, Until Discontinued, Routine 0900 (Not Given - Provider: Ehsan Guzman RN - Reason: Patient/family refused) 0900 (Not Given - Provider: Katie Berman RN - Reason: Patient/family refused) 0900 (Not Given - Provider: Annetta Man RN - Reason: Patient/family refused) rivaroxaban (Xarelto) tablet 20 mg 20 mg, Oral, DAILY, First dose on Sat03/11/22 at 0900, Until Discontinued, Must be taken with a meal, Routine, Restricted anticoagulant, choose the most appropriate response: Continuation of ongoing therapy 0845 (Given - Provider: Annetta Man, JAX) sodium chloride 0.9 % (flush) (BD PosiFlush Normal Saline 0.9) flush 5 mL 5 mL, Intravenous, 2 TIMES DAILY, First dose on Sat02/28/22 at 2100, Until Discontinued, Routine 0826 (Given - Provider: Ehsan Guzman RN)2100 (Given - Provider: Brittany Marshall, JAX) 0900 (Given - Provider: Katie Berman RN)2100 (Given - Provider: Brittany Marshall, JAX) 0900 (Given - Provider: Annetta Man, JAX) PRN Medication Order 03/09/2022 03/10/2022 03/11/2022 dextrose 10% infusion(Linked Group 3) 250 mL, at 1,000 mL/hr, Intravenous, EVERY 30 MIN PRN, Starting on Sat03/09/22 at 1706, Until Sat03/11/22 at 1613, For BG 50-70 mg/dL: Oral treatment preferred: [...] (1 mg/mL) injection solution 1 mg(Linked Group 3) 1 mg, Intramuscular, EVERY 30 MIN PRN, Starting on Sat03/09/22 at 1706, Until Sat03/11/22 at 1613, Low blood sugar, For BG 50-70 mg/dL: [...] Routine glucose (Glutose) 40% oral geL(Linked Group 3) 15-30 g of glucose, Buccal, EVERY 30 MIN PRN, Starting on Sat03/09/22 at 1706, Until Sat03/11/22 at 1613, Low blood sugar, For BG 50-70 mg/dL: [...] Subcutaneous, ONCE PRN, 1 dose, Starting on Sat02/28/22 at 1855, Until 03/11/22 at 1613, for discomfort with PIV insertion, Routine ondansetron (Zofran) tablet 8 mg 8 mg, Oral, EVERY 8 HOURS PRN, Starting on Sat03/08/22 at 1330, Until Sat03/11/22 at 1613, Nausea, Routine potassium chloride ER (K-Dur/Klor-Con) tablet 20 mEq(Linked Group 4) 20 mEq, Oral, EVERY 4 HOURS PRN, Starting on Sat03/01/22 at 0541, Until Sat03/11/22 at 1613, hypokalemia, Administer for serum potassium (mMol/L) of 3.9 - 4 See instructions for Potassium Protocol in online policies., Routine sodium chloride 0.9 % (flush) (BD PosiFlush Normal Saline 0.9) flush 5-20 mL 5-20 mL, Intravenous, EVERY 1 MIN PRN, Starting on Sat02/28/22 at 1855, Until 03/11/22 at 1613, flush, Flush pertains to all indwelling lines. Flush per protocol found in the job aid using the link provided on this medication record., Routine Linked Groups Order Group 1: POCT Fingerstick Glucose (CANCELED) Routine, 4 TIMES DAILY BEFORE MEALS & AT BEDTIME, First occurrence on Sat03/08/22 at 1700, Until Specified, Consider choosing FOUR TIMES A DAY BEFORE MEALS AND AT BEDTIME as frequency for: Patients who have a good hypoglycemia awareness: -Patients who are eating meals during the day and sleeping at night -Patient who are otherwise stable And insulin lispro (HumaLOG;Admelog) (100 unit/mL) subcutaneous injection vial 1-6 Units (CANCELED)Jump to med 1-6 Units, Subcutaneous, 3 TIMES DAILY BEFORE MEALS, First dose on Sat03/08/22 at 1245, Until Discontinued, CORRECTION BOLUS [1-6 Units] Moderate [...] mg/dL in 2 hours., Routine Group 2: POCT Fingerstick Glucose (CANCELED) Routine, 4 TIMES DAILY BEFORE MEALS & AT BEDTIME, First occurrence on Sat03/09/22 at 2200, Until Specified, Consider choosing FOUR TIMES A DAY BEFORE MEALS AND AT BEDTIME as frequency for: Patients who have a good hypoglycemia awareness: -Patients who are eating meals during the day and sleeping at night -Patient who are otherwise stable And insulin lispro (HumaLOG;Admelog) (100 unit/mL) subcutaneous injection vial 2-12 UnitsJump to med 2-12 Units, Subcutaneous, 3 TIMES DAILY BEFORE MEALS, First dose on Sat03/09/22 at 1800, Until Discontinued, CORRECTION BOLUS [2-12 Units] Resistant Sliding Scale (BG in mg/dL): Correction Factor 10 (1 unit of insulin is expected to drop the glucose 10 mg/dL) BG 140 - 160 Give 2 units BG 161 - 180 Give 4 units BG 181 - 200 Give 6 units BG 201 - 220 Give 8 units BG 221 - 240 Give 10 units BG greater than 240, give 12 units and recheck BG in 2 hours. - If recheck BG is LESS than 240, give no insulin and resume schedule. - If recheck BG is GREATER than 240, give 12 units and repeat BG in 2 hours (no more than 3 times) & call for new insulin orders. DO NOT hold if NPO, unless specifically directed to do so by written order. Per Blood Glucose Monitoring Policy, re-check a BG of > 240 mg/dL in 2 hours, Routine Group 3: glucose (Glutose) 40% oral geLJump to med 15-30 g of glucose, Buccal, EVERY 30 MIN PRN, Starting on Sat03/09/22 at 1706, Until 03/11/22 at 1613, Low blood sugar, For BG 50-70 mg/dL: [...] Intravenous, EVERY 30 MIN PRN, Starting on Sat03/09/22 at 1706, Until 03/11/22 at 1613, For BG 50-70 mg/dL: Oral treatment preferred: [...] Intramuscular, EVERY 30 MIN PRN, Starting on Sat03/09/22 at 1706, Until 03/11/22 at 1613, Low blood sugar, For BG 50-70 mg/dL: [...] the duration of the active insulin., Routine Group 4: potassium chloride ER (K-Dur/Klor-Con) tablet 20 mEqJump to med 20 mEq, Oral, EVERY 4 HOURS PRN, Starting on Susanne 03/01/22 at 0541, Until 03/11/22 at 1613, hypokalemia, Administer for serum potassium (mMol/L) of 3.9 - 4 See instructions for Potassium Protocol in online policies., Routine Or potassium chloride ER (K-Dur/Klor-Con) tablet 40 mEq (CANCELED) 40 mEq, Oral, EVERY 4 HOURS PRN, Starting on Susanne 03/01/22 at 0541, Until 03/07/22 at 1239, hypokalemia, Administer for serum potassium (mMol/L) of 3.6 - 3.8 See instructions for Potassium Protocol in online policies., Routine documented in this encounter Care Teams Dresser Tender Relationship Specialty Start Date End Date Domenica Atkins, LAUREN PCP - General Family Medicine 11/21/21 documented as of this encounter
--- OUTSIDE RECORDS SUMMARY | 2024-06-11 18:10 | XMS_ITS | Encounter Summary ---
Author Organization Formerly [facility] [place] [address] Care Team Providers Care Assistant Media Buyer Name Role Phone Domenica Atkins Dayron AGUILAR Primary Care Provider Reason for Visit * Consultation (Urgent) - Closed Specialty Diagnoses / Procedures Referred By Contact Referred To Contact Electrophysiology / Cardiology Diagnoses Atrial fibrillation, unspecified type Atrial flutter, unspecified type afib, aflutter Evan Guzman MD [address] [place] [address] [place] [address] [id number] Referral ID Status Reason Start Date Expiration Date V isits Requested Visits Authorized [id number] Closed Consult, Test & Treat 11/21/2021 11/21/2022 6 6 Encounter Details Date Type Department Care Team (Late st Contact Info) Description 01/10/2022 3:40 PM EDT Office Visit Cardiology at [address] [phone] Curtis Arredondo MD [facility] [place] [address] Persistent atrial fibrillation Social History [...] EDT documented in this encounter Patient Instructions * Patient Instructions* Curtis Arredondo MD - 01/10/2022 4:26 PM EDT Images [...] schedulers in the next 2 weeks, call [phone] and speak to 'Oralia' or 'Niurka' For any questions, call my office: [phone] (and then 'option 2') Curtis WAGONER.[facility], Clinical Cardiac Electrophysiology, [facility], For more information about heart rhythm issues, go to [email or web address] - the Heart Rhythm Society's patient resource center [facility] centerMind[facility] MediaGladwin To access your health care information, go to the web at: [email or web address] (you will need to register) Heart-Healthy Lifestyle You can help keep your heart and blood vessels healthy by taking steps toward a healthier lifestyle. These healthy habits include not smoking, eating right, exercising regularly, staying at a healthyweight, and getting the screening tests you need. A heart-healthy lifestyle is important for everyone, not just for people with existing health problems. It can help you keep your heart and blood vessels healthy. If you already have heart or blood vessel problems, such as high cholesterol or high blood pressure, a healthy lifestyle can help you lower your risk of a heart attack and stroke. If you have children, you can be their healthy role model. If your habits are healthy, your children are more likely to build those habits in their own lives. Don't smoke Everyone who uses tobacco would benefit from quitting. When you quit smoking--no matter how old youare--you will decrease your risk of heart attack, stroke, and many other health problems. Where can you learn more? Visit our health information library at [email or web address] You can also view health information on [email or web address], your personal patient account. Log in or sign uptoday. * Attachments The following attachments cannot be sent through Care Everywhere. * Atrial Fibrillation: Cardioversion or Medicines: Deciding About (Maldivian) documented in this encounter Progress Notes * Curtis Arredondo MD - 01/10/2022 3:40 PM EDT Images from the original note were not included. Section of Cardiology/Cardiac Electrophysiology Clinical Cardiac Electrophysiology Follow Up Patient ID Wilber Shell [id number] Wilber Shell is following up in EP [...] days later,he developed some dyspnea and fatigue. Not particularly [...] fibrillation, average ventricular sponsor 94 bpm, QRS 80ms, QT interval 360 ms (QTC 450) Lesli Shell is seen in the EP clinic for follow up after a recent EPS/ablation procedure. Hewas found to have an atypical atrial flutter at initial presentation, but a more typical right atrial counterclockwise (isthmus dependent) flutter was induced during the procedure. This was targeted with ablation. He was also noted to have atypical flutter as well as atrial fibrillation during thatprocedure. We had a discussion at the time about considering antiarrhythmic loading, but elected to ablate hisatrial flutter to see how he does. Unfortunately, [...] is complete CURTIS ARREDONDO MD Cardiac Electrophysiology [facility] [place] T: [phone] F: [phone] 20 minutes of this 25 minute encounter [...] 3:30 PM EDT Office Visit Cardiology at [address] [phone] Carlos Eduardo Quan PA [facility] [place] [address] documented as of this encounter Visit Diagnoses Diagnosis Persistent atrial fibrillation Atrial fibrillation documented in this encounter Care Teams Assistant Media Buyer Relationship Specialty Start Date End Date Domenica Atkins APRN PCP - General Family Medicine 11/21/21 documented as of this encounter
--- OUTSIDE RECORDS SUMMARY | 2024-06-11 18:10 | XMS_ITS | Encounter Summary ---
Author Organization [facility] [place] [address] Care Team Providers Care Building Trades Instructor Name Role Phone Domenica Atkins Dayron AGUILAR Primary Care Provider [phone] Reason for Visit * Auth/Cert Specialty Diagnoses / Procedures Referred By Contac t Referred To Contact Diagnoses Atrial fibrillation, unspecified type [I48.91] Procedures ELECTROPHYSIOLOGY PROCEDURE Referral ID Status Reason Start Date Expiration Date Visits Re quested Visits Authorized [id number] 1 1 Encounter Details Date Type Department Care Team (Late st Contact Info) Description 01/02/2022 7:39 AM EDT Anesthesia Event Electrophysiology [place] [address] Jake Baptiste [facility] [place] [address] Anesthesia Record Procedure Summary Procedure Name Responsible Anesthesiologist Anesthesia Start Time Anesthesia Stop Time ELECTROPHYSIOLOGY PROCEDURE Jake Baptiste DO 01/02/22 0739 01/02/22 1040 Events Date Time Event Comment 01/02/2022 0721 0739 Start 0742 AN Verify 0742 An Start Data 0752 An Induction 0755 An Intubation 0809 Anesthesia Ready 0824 Procedure Start 0839 AN Defib 200 J 1019 Extubation/LMA Out Patient t aking adequate tidal volumes (>300ml), coughing on ETT. Opens eyes to command. Oropharynx suctioned, ETT removed, spontaneous ventilations maintained. 1030 an stop data 1039 Recovery or ICU Handoff Tomasa ent care was transferred to the destination unit staff after review of the patient's medical history, current anesthetic/surgical status and plan, according to the Provider Handoff Checklist. 1040 Stop Patient brought to recovery with 6L/min O2 via face mask. Spontaneous ventilations maintained. Patient opening eyes to voice, resting comfortably. Meds Name Total IV Lidocaine 100 mg Propofol 350 mg Rocuronium 100 mg PHENYLephrine 1,440 mcg Ondansetron 8 mg Neostigmine 5 mg Glycopyrrolate 0.8 mg Propofol INF 371.25 mg PHENYLephrine INF 6,540 mcg Heparin 7,500 Units DOBUTamine INF 9 mg lactated ringers infusion 500 mL Lactated Ringers 600 mL * Agents Name O2 Air N2O Sevoflurane (et) * Blood No blood administrations on file. Lines, Drains, and Airways Type Details Placement Removal (RETIRED) Peripheral IV Line - Single Lumen 01/02/22; 0715; median cubital vein (antecubital fossa), left; nsog-tqo-cbvkov catheter system; Anatomical Landmarks; 20 gauge; Tato Enriquez RN; distraction, tolerated well, appears comfortable; 0; 01/02/22; 14001/02/22 0715 by Simone Enriquez RN 01/02/22 1401 by Luz Woodall, RN ETT Mask Ventilation: Adjunct (2); ETT Type: Cuffed, Oral; ETT Size: 8 mm; Mac Blade: 4; Notes: Asleep, Pre-O2, Stylette; Attempts: 1; Laryngoscopy Grade: 1; ETT Placement Verified By: Auscultation, Capnometry; Secured at Teeth: 22 cm; Inserted by: Cullen Erazo CRNA; Removal Date: 01/02/22; Removal Time: 1019 01/02/22 0755 by Malu Erazo CRNA 01/02/22 1019 by Malu Erazo CRNA (RETIRED) Peripheral IV Line - Single Lumen 01/02/22; 0759; dorsal arch vein (top of hand), right; [id number]-gvu-[id number] catheter system; 16 gauge; MD Emile; 01/02/22; 1401 01/02/22 0759 by Malu Erazo CRNA 01/02/22 1401 by Luz Woodall RN Arterial Line 01/02/22; 0807; radi al artery, left; 20 gauge; Anatomical Landmarks; continuous blood pressure monitoring; V Kacey NIGHT SHIFT SUPERVISOR; Sterile Prep, Sterile Gloves; 01/02/22; 1401 01/02/22 0807 by Malu Erazo CRNA 01/02/22 1401 by Luz Woodall RN LDA Cath/EP Sheath 01/02/22; 0836; 7 Fr ench (Fr); Right; Femoral; Venous 01/02/22 0836 by Luz Cortez RN 01/02/22 1005 by Luz Cortez RN LDA Cath/EP Sheath 01/02/22; 0837; 8.5 Malay (Fr); Right; Femoral; Venous 01/02/22 0837 by Luz Cortez RN 01/02/22 1006 by Luz Cortez RN documented in this encounter Social History Tobacco Use Types Packs/Day Years Used Date Smoking Tobacco: Never Smokeless Tobacco: Never Sex and Gender Information Value Date Recorded Sex Assigned at Not on file Gender Identity Not on file Sexual Orientation Not on file documented as of this encounter OR Notes * Anesthesia Postprocedure Evaluation - Jake Baptiste DO - 01/02/2022 3:07 PM EDT Department of Anesthesiology Post-procedure Note Patient: Wilber Shell Procedure Summary Date: 01/02/22 Room / Location: [facility] A-LAB ROOM [address] [place] [address] LABS Anesthesia Start: 738 Anesthesia Stop: 1039 Procedure: ELECTROPHYSIOLOGY PROCEDURE (N/A ) Diagnosis: Atrial fibrillation, unspecified type (Atrial fibrillation, unspecified type [I48.91]) Providers: Curtis Arredondo MD Responsible Provider: Jake Baptiste DO Anesthesia Type: general ASA Status: 2 All Anesthesia Providers: Anesthesiologist: Jake Baptiste DO NIGHT SHIFT SUPERVISOR: Malu Erazo CRNA Vitals Value Taken Time BP 93/60 01/02/22 1130 Temp 36.9 ??C (98.4 ??F) 01/02/22 1130 Pulse 69 01/02/22 1142 Resp 13 01/02/22 1142 SpO2 93 % 01/02/22 1142 Pain Level 0 01/02/22 1130 Vitals shown include unvalidated device data. Patient Location: PACU/[facility] Level of Consciousness: Conscious but Sleepy Pain Management: Satisfactory Analgesia PONV: None Cardiovascular Status: At Baseline and Hemodynamically Stable Respiratory Status: At Baseline and Room Air Postoperative Fluid Status: Intravascular EUvolemia Possible Anesthetic Complications: NONE apparent at time of evaluation Final Primary Anesthesia Type: General (The anesthetic type performed was the same as planned.) Comments: Jake Baptiste DO * Anesthesia Preprocedure Evaluation - Jake Baptiste DO [...] 3:30 PM EDT Office Visit Cardiology at [address] [place] [address] Carlos Eduardo Quan PA [facility] [place] [address] documented as of this encounter Visit Diagnoses Not on filedocumented in this encounter Administered Medications Inactive Administered Medications - up to 3 most recent administrations Medication Order MAR Action Action Date Dose Rate Site DOBUTamine (Dobutrex) (2,000 mcg/mL) in dextrose 5% 250 mL infusion Intravenous, CONTINUOUS PRN, Starting on Sat01/02/22 at 0935, Until Sat01/02/22 at 1042, Anesthesia Intra-op New Bag 01/02/2022 9:35 AM EDT 5 mcg/kg/min 16.875 mL/hr glycopyrrolate (Robinul) (0.2 mg/mL) multi-dose injection Intravenous, PRN, Starting on Sat01/02/22 at 1002, Until Sat01/02/22 at 1042, Anesthesia Intra-op, Routine Given 01/02/2022 10:02 AM EDT 0.8 mg heparin (porcine) (1,000 units/mL) injection Intravenous, PRN, Starting on Sat01/02/22 at 0838, Until Sat01/02/22 at 1042, Anesthesia Intra-op, Routine Given 01/02/2022 9:05 AM EDT 2,500 Units Given 01/02/2022 8:38 AM EDT 5,000 Units lactated ringers infusion 1,000 mL, at 100 mL/hr, Intravenous, CONTINUOUS, Starting on Sat01/02/22 at 0715, Until Sat01/02/22 at 1139, Day of Surgery (Day of Procedure) New Bag 01/02/2022 7:39 AM EDT lactated ringers infusion Intravenous, CONTINUOUS PRN, Starting on Sat01/02/22 at 0806, Until Sat01/02/22 at 1042, Anesthesia Intra-op New Bag 01/02/2022 8:06 AM EDT lidocaine (pf) (Xylocaine) (20 mg/mL) 2% injection syringe Intravenous, PRN, Starting on Sat01/02/22 at 0752, Until Sat01/02/22 at 1042, Anesthesia Intra-op, Routine Given 01/02/2022 7:52 AM EDT 100 mg neostigmine (Bloxiver) (1 mg/mL) injection Intravenous, PRN, Starting on Sat01/02/22 at 1002, Until Sat01/02/22 at 1042, Anesthesia Intra-op, Routine Given 01/02/2022 10:02 AM EDT 5 mg ondansetron (pf) (Zofran) (2 mg/mL) injection Intravenous, PRN, Starting on Sat01/02/22 at 1002, Until Sat01/02/22 at 1042, Anesthesia Intra-op, Routine Given 01/02/2022 10:02 AM EDT 8 mg PHENYLephrine (Hung-Synephrine) (80 mcg/mL) in sodium chloride 0.9% 250 mL infusion Intravenous, CONTINUOUS PRN, Starting on Sat01/02/22 at 0836, Until Sat01/02/22 at 1042, Anesthesia Intra-op, Routine Rate/Dose Change 01/02/2022 10:10 AM EDT 20 mcg/min 15 mL/hr Rate/Dose Change 01/02/2022 10:08 AM EDT 40 mcg/min 30 mL/ hr Rate/Dose Change 01/02/2022 9:17 AM EDT 80 mcg/min 60 mL/h r PHENYLephrine in NS (PF) (HUNG-SYNEPHRINE) 0.8 mg/10 mL (80 mcg/mL) multi-dose injection Syrg Intravenous, PRN, Starting on Sat01/02/22 at 0814, Until Sat01/02/22 at 1042, Anesthesia Intra-op, Routine Given 01/02/2022 10:01 AM EDT 160 mcg Given 01/02/2022 9:19 AM EDT 160 mcg Given 01/02/2022 8:45 AM EDT 160 mcg propofoL (Diprivan) (10 mg/mL) infusion Intravenous, CONTINUOUS PRN, Starting on Sat01/02/22 at 0812, Until Sat01/02/22 at 1042, Anesthesia Intra-op, Routine New Bag 01/02/2022 8:12 AM EDT 30 mcg/kg/min 20.25 mL/hr propofoL (Diprivan) 10 mg/mL bolus injection (Anesthesia) Intravenous, PRN, Starting on Sat01/02/22 at 0752, Until Sat01/02/22 at 1042, Anesthesia Intra-op Given 01/02/2022 9:58 AM EDT 50 mg Given 01/02/2022 9:56 AM EDT 50 mg Given 01/02/2022 7:55 AM EDT 50 mg rocuronium (Zemuron) (10 mg/mL) multi-dose injection Intravenous, PRN, Starting on Sat01/02/22 at 0752, Until Sat01/02/22 at 1042, Anesthesia Intra-op, Routine Given 01/02/2022 7:52 AM EDT 100 mg documented in this encounter Care Teams Building Trades Instructor Relationship Specialty Start Date End Date Domenica Atikns APRN PCP - General Family Medicine 11/21/21 documented as of this encounter
--- OUTSIDE RECORDS SUMMARY | 2024-06-11 18:10 | XMS_ITS | Encounter Summary ---
Author Organization [facility] [place] [address] Care Team Providers Care Crm Analyst Name Role Phone RayDomenica tate Dayron AGUILAR Primary Care Provider [phone] Reason for Visit * Auth/Cert Specialty Diagnoses / Procedures Referred By Contac t Referred To Contact Diagnoses Atrial fibrillation, unspecified type [I48.91] Procedures ELECTROPHYSIOLOGY PROCEDURE Referral ID Status Reason Start Date Expiration Date Visits Re quested Visits Authorized [id number] 1 1 Encounter Details Date Type Department Care Team (Latest Contact Info) Description 01/02/2022 6:26 AM EDT - 01/02/2022 2:30 PM EDT Hospital Encounter Same [place] [id number] Ryder Arredondo MD [facility] CARDIOLOGY [place] [id number] Atrial fibrillation, unspecified type Discharge Disposition: Home Social History Tobacco Use [...] AM E DT Respiratory Rate 16 01/02/2022 1:29 PM EDT [...] of any new medications initiated at the [facility]. The patient should be aware and [...] his/her physician or the Cardiac Electrophysiology Service ([phone]). documented in this encounter Medications at Time [...] at 30 degrees or less. * Ryder Arredondo MD - 01/02/2022 7:10 AM [...] mL 5-20 mL Intravenous Q1 Min PRN Emile, Jake M, DO ??? lidocaine (Xylocaine) 1% (10 mg/mL) injection 3 mg 0.3 mL Subcutaneous Once PRN Emile, TimothyM, DO ??? lactated ringers infusion 1,000 mL Intravenous Continuous Emile, Jake M, DO PAST SURGICAL HISTORY: No [...] depending uponthe findings of the EPS RYDER ARREDONDO MD documented in this encounter Plan of Treatment Upcoming Encounters Date Type Department Care Team (Late st Contact Info) Description 12/23/2024 3:30 PM EDT Office Visit Cardiology at [address] [place] [address] Carlos Eduardo Quan PA [facility] [place] [address] documented as of this encounter Procedures Procedure [...] Glucose, POC 144 65 - 199 mg/dL [facility] Comment: Supplemental ranges: <140 mg/dL before meals <180 mg/dL all other times of the day Blood 01/02/2022 12:0 1 PM EDT 01/02/2022 12:01 PM EDT Ryder Arredondo MD POINT OF CARE TEST O RDERABLES [facility] [place] [address] * ELECTROPHYSIOLOGY PROCEDURE (01/02/2022 8:27 AM EDT) Anatomical Region Laterality Modality Other Impressions 01/06/2022 11:53 AM EDT : ? ? Successful ablation of typical atrial flutter DISCUSSION: 1. Continue metoprolol succinate at 75 mg daily. 2. Continue apixaban 5mg twice daily for anticoagulation. 3. Follow up in clinic with either Dr. Julian or Dr. Arredondo. I was the paper cup machine operator for the procedure, present for the entire procedure and personally edited this note RYDER ARREDONDO MD Narrative 01/06/2022 11:53 AM EDT Ablation of Atrial flutter: Electrophysiology Study, Mapping (CARTO), Cardioversion, Ablation Indication: Symptomatic atrial flutter Finish Saw Operator: Ryder WAGONER.ChB. Fellow: Beau Julian MD Procedure: The patient [...] lesion set. Intervals: Cycle length: 724 ms CO 172 ms QRS 93 ms QT 344 ms HV 54 ms (taken in atrial flutter) Conduction AVWB 320ms AERP 600/220ms AVNERP <600/220ms Ryder Arredondo MD EP PROCEDURE ORDERAB LES * Differential, Automated (01/02/2022 7:15 AM EDT) Neutrophil % 60.2 % [facility] Neutrophil Absolute 5.32 1.70 - 6.10 x10(3)/[facility] Lymph % 25.6 % [facility] Lymphocytes Abs 2.3 0.9 - 3.2 x10(3)/[facility] Monocyte % 10.5 % [facility] Monocyte Abs 0.9 0.3 - 0.9 x10(3)/[facility] Eos % 2.6 % [facility] Eosinophils Abs 0.2 0.0 - 0.4 x10(3)/[facility] Basophil % 0.8 % [facility] Baso Absolute 0.1 0.0 - 0.1 x10(3)/[facility] Immature Gran % 0.30 % [facility] Comment: Immature granulocytes(IG's)percentage and absolute count will include metamyelocytes, myelocytes, and promyelocytes. Blood smears from CBCs yielding IG's will be scanned manually for concordance. If this scan disagrees with the automated IG or if promyelocytes are noted, a manual differential will be performed. Immature Gran Absolute 0.03 0.00 - 0.04 x10(3)/[facility] Blood 01/02/2022 7:15 AM EDT 01/02/2022 7:32 AM EDT Narrative Resulting Agency Comment Spec In Lab Beau Julian MD HEMATOLOGY ORDERAB LES [facility] [place] [address] * (ABNORMAL) Hemogram (01/02/2022 7:15 AM EDT) [facility] White Blood Cell 8.8 4.0 - 9.5 x10(3)/mc L [facility] Red Blood Cell 4.42(L) 4.58 - 5.54 x10(6)/mc L [facility] Hemoglobin 14.0 13.7 - 16.5 g/dL [facility] Hematocrit 42.5 40.5 - 48.5 % [facility] Mean Cell Volume 96.2(H) 82.9 - 93.1 [facility] Mean Cell Hemoglobin 31.7 27.5 - 32.1 pg [facility] Mean Cell Hemoglobin Concentration 32.9 32.0 - 35.7 g/dL [facility] Platelet 179 145 - 357 x10(3)/mc L [facility] RDW Standard Deviation 46.4(H) 36.0 - 45.0 [facility] RDW coefficient of variation 13.1 11.4 - 13.8 % [facility] Mean Platelet Volume 11.3 7.6 - 12.9 [facility] NRBC% auto 0.0 % [facility] NRBC Absolute 0.000 0.000 - 0.000 x10(3)/mc L [facility] Blood 01/02/2022 7:15 AM EDT 01/02/2022 7:32 AM EDT Narrative Resulting Agency Comment Spec In Lab Beau Julian MD HEMATOLOGY ORDERAB LES [facility] [place] [address] * (ABNORMAL) Basic Metabolic Panel (non-fasting) (01/02/2022 7:15 AM EDT) Glucose 200(H) 65 - 199 mg/dL [facility] Comment:Diabetes: >=200 mg/d L plus symptoms Blood Urea Nitrogen 18 10 - 20 mg/dL [facility] Creatinine 0.89 0.80 - 1.50 mg/dL [facility] Sodium 140 135 - 145 mmol/L [facility] Potassium 4.5 3.5 - 5.0 mmol/L [facility] Comment: Please note: ??Patients with WBC >100,000 may have falsely elevated Potassium levels. ??For accurate Potassium quantification in these patients send serum separator tube (gold top) for subsequent determinations. ??Contact the Clinical Chemistry Laboratory if there are any questions. Chloride 105 98 - 107 mmol/L [facility] Carbon Dioxide 23 22 - 31 mmol/L [facility] Anion Gap 12 5 - 15 mmol/L [facility] Calcium 9.1 8.5 - 10.5 mg/dL [facility] Est Glomerular Filtration Rate 86 >=60 mL/min/1. 73 m?? [facility] Comment: This patient? s estimated [...] Arredondo MD CHEMISTRY ORDERABLES Performing Organization Address City/State/[facility] Co de Phone Number [facility] [place] [address] * POCT Glucose (01/02/2022 6:51 AM EDT) Glucose, POC 186 65 - 199 mg/dL [facility] Comment: Supplemental ranges: <140 mg/dL before meals <180 mg/dL all other times of the day Blood 01/02/2022 6:51 AM EDT 01/02/2022 6:51 AM EDT Ryder Arredondo MD POINT OF CARE TEST O RDERABLES [facility] [place] [address] documented in this encounter Visit Diagnoses Diagnosis [...] Routine documented in this encounter Care Teams Crm Analyst Relationship Specialty Start Date End Date Domenica Atkins APRN PCP - General Family Medicine 11/21/21 documented as of this encounter
--- OUTSIDE RECORDS SUMMARY | 2024-06-11 18:10 | XMS_ITS | Clinical Summary ---
Author Organization [facility] Address [address] [place] [address] Care Team Providers Care Corporate Operations Compliance Manager Name Role Phone Unknown, Provider Primary Care Provider Social History Tobacco Use Types Packs/Day Years Used Date Smoking Tobacco: Never Assessed Interpersonal Safety Answer Date Record ed Physically Hurt Never 12/06/2020 Verbally Threaten Not on file 12/06/2020 Sex and Gender Information Value Date Recorded Sex Assigned at Not on file Gender Identity Not on file Sexual Orientation Not on file Plan of Treatment Health Maintenance Due Date Last Done Comments Hepatitis C Screen 1950 RSV Immunization ( o r 60+ Years) (1 - 1-dose 60+ series) 2010 Fall Risk Screening 2015 COVID-19 Vaccine (2022-24 season) 2023 Care Teams Corporate Operations Compliance Manager Relationship Specialty Start Date End Date Unknown, Provider, PCP - General 12/01/20
--- OUTSIDE RECORDS SUMMARY | 2024-06-11 18:10 | XMS_ITS | Encounter Summary ---
Author Organization [facility] [place] [address] Care Team Providers Care Mechanical Assembly Technician Name Role Phone Domenica Atkins APRN Primary Care Provider [phone] Encounter Details Date Type Department Care Team (Late st Contact Info) Description 02/09/2022 Orders Only Cardiology at [address] [address] Carlos Eduardo Quan PA [facility] [address] Persistent atrial fibrillation (Primary Dx) Social History Tobacco Use Types [...] 3:30 PM EDT Office Visit Cardiology at [address] [id number] Carlos Eduardo Quan PA [facility] [place] [address] documented as of this encounter Visit Diagnoses Diagnosis Persistent atrial fibrillation- Primary Atrial fibrillation documented in this encounter Care Teams Mechanical Assembly Technician Relationship Specialty Start Date End Date Domenica Atkins APRN PCP - General Family Medicine 11/21/21 documented as of this encounter
--- OUTSIDE RECORDS SUMMARY | 2024-06-11 18:10 | XMS_ITS | Encounter Summary ---
Author Organization [facility] Address [address] [place] [address] Care Team Providers Care Flask Fitter Name Role Phone Unknown, Provider Primary Care Provider Encounter Details Date Type Department Care Team (Late st Contact Info) Description 05/09/[address] [facility] Pathology & Laboratory Medicine - [facility] [address] [place] [address] Outr Resulting Lab, Provider Social History Tobacco [...] Associated Diagnosis Comments PSA TOTAL, DIAGNOSTIC Routine 05/09/2022 10:25 EDT documented in this encounter Results * PSA TOTAL, DIAGNOSTIC (05/09/2022 10:25 EDT) PSA 0.3 <=6.5 ng/mL 05/09/2022 22:58 EDT [facility] Blood VENOUS BLOOD / Unknown 05/09/2022 10:25 EDT 05/09/2022 21:55 EDT Narrative [facility] - 05/09/2022 22:58 EDT NOTE: Serum PSA concentration should not be interpreted as absolute evidence for the presence or absence of malignant disease. Assayed on Siemens ADVIA Recurlyaur XPT using chemiluminescent technology.??Values obtained by using different assay methods cannot be used interchangeably. Provider Outr Resulting Lab CHEMISTRY & BLOOD GAS ORDERABLES [facility] [address] [place] [address] documented in this encounter Visit Diagnoses Not on filedocumented in this encounter Care Teams Flask Fitter Relationship Specialty Start Date End Date Unknown, Provider, PCP - General 12/01/20 documented as of this encounter
--- OUTSIDE RECORDS SUMMARY | 2024-06-11 18:10 | XMS_ITS | Encounter Summary ---
Author Organization [facility] [place] [address] Care Team Providers Care Postal Clerk Name Role Phone RayDomenica tate Dayron AGUILAR Primary Care Provider [phone] Reason for Visit * Consultation (Urgent) - Closed Specialty Diagnoses / Procedures Referred By Contact Referred To Contact Electrophysiology / Cardiology Diagnoses Atrial fibrillation, unspecified type Atrial flutter, unspecified type afib, aflutter Evan Guzman MD [address] [place] [address] [place] [address] [address] Referral ID Status Reason Start Date Expiration Date V isits Requested Visits Authorized [id number] Closed Consult, Test & Treat 11/21/2021 11/21/2022 6 6 Encounter Details Date Type Department Care Team (Late st Contact Info) Description 12/27/2021 11:00 AM EDT Office Visit Cardiology at [address] [address] Ryder Arredondo MD [facility] [place] [address] Beau Julian MD [facility] [place] [address] Atrial fibrillation, unspecified type (Primary Dx); Typical atrial flutter Social History Tobacco Use Types Packs/Day Years Used Date Smoking Tobacco: Never Smokeless Tobacco: Never Sex and Gender Information Value Date Recorded Sex Assigned at Not on file Gender Identity Not on file Sexual Orientation Not on file documented as of this encounter Last Filed Vital Signs Vital Sign Reading Time Taken Comments Blood Pressure 121/83 12/27/2021 10:50 AM EDT Pulse - - Temperature - - Respiratory Rate - - Oxygen Saturation 98% 12/27/2021 10: 50 AM EDT Inhaled Oxygen Concentration - - Weight 112.9 kg (248 lb 12.8 oz) 2021 10:50 AM EDT Height 170.2 cm (5' 7) 12/27/2021 10:5 0 AM EDT Reported Body Mass Index 38.97 12/27/2021 10:50 AM EDT documented in this encounter Progress Notes * Beau Julian MD - 12/27/2021 11:00 AM EDT Images from the original note were not included. [facility] [place] [address] ELECTROPHYSIOLOGY OUTPATIENT NOTE REFERRING PROVIDER: Domenica Atkins PROBLEM LIST: Patient Active Problem List Diagnosis Code ??? Typical atrial flutter I48.3 MEDICATIONS: Current Outpatient Medications Medication Sig Dispense Refill ??? insulin detemir U-100 (Levemir) 100 unit/mL [...] No current facility-administered medications for this visit. Subjective: Patient ID: Wilber Shell is a 71 y.o. male. HPI Recently at a urologist appointment, she put him on some alpha blockers for BPH. He was cautioned it may drop his blood pressure and so should keep an eye on it. He was checking his BP regularly and noted his pulse was high (144 bpm). This occurred on 11/17/2021. He was referred to the emergency department was evaluated with echocardiogram was normal, chest x-ray that was normal. An EKG demonstrated atrial flutter with 2-1 AV block. He was recommended for admission but declined. Since that time, he has been home. He notes that overall he feels well. No feel ing of palpitations or tachycardia. He checks his pulse and his heart rate multiple times a day andfinds that at times he is 100 4150 beats a minute other times he has a normal heart rate. He has been taking metoprolol succinate 37.5 mg daily. He does feel short of breath. He has difficulty sleeping, but has always had 'insomnia', however since this diagnosis his symptoms have been worse. He has PND. He has been taking apixaban, but plans to change to xarelto due to cost. No missed doses. No syncope, but had periods as a child He 'keeps busy', hauling firewood, shovels snow. Orange whacks. Repairs things around the house. Family history: PGF diabetes, PAD, CAD. Father early CAD, DM2, lung cancer. Mother healthy, of dementia. Andrew had heart attack at age 59, DM2. Objective: Vitals: 12/27/21 1050 BP: 121/83 Patient Position: Sitting SpO2: 98% Weight: 112.9 kg (248 lb 12.8 oz) Height: 170.2 cm (5' 7) Physical Exam Cardiovascular: Rate and Rhythm: Tachycardia present. Rhythm irregular. Heart sounds: No murmur heard. Pulmonary: Effort: Pulmonary effort is normal. No respiratory distress. Breath sounds: No wheezing. Abdominal: General: There is no distension. Musculoskeletal: Right lower leg: No edema. Left lower leg: No edema. Echo 10/2021: Normal wall motion. LVEF 55-60%. No significant valve disease. Assessment Typical atrial flutter Mr. Shell presents for evaluation of tachycardia. EKG today notable for 201 atrial flutter, suspicious for clockwise atrial flutter. No prior history of cardiac disease, CA, or cardiac surgery.We discussed management this rhythm. Per his vital sign checks at home's history of paroxysmal otherwise asymptomatic, though he may be having some worsening shortness of breath due to this arrhythmia. Given the concern for potential right atrial flutter I do think an EP study and ablation would bereasonable, however if he would have a left-sided [...] block. His vital signs are otherwise normal. Perhis home review he is paroxysmal. We will plan on uptitrating his metoprolol succinate to 75 mg daily for further rate control. We did advise him to call us if he develops any worsening shortness of breath, chest discomfort, syncope, or any other symptoms to expedite his evaluation. Plan: - EP study: if right sided, ablation with CARTO. If left sided, cardiovert + admisson for sotalol - increase metoprolol succinate to 75mg daily - continue anticoagulation Patient seen and discussed with Dr. Arredondo. Beau Julian MD 12/29/2021 Addendum I personally interviewed and examined the patient, reviewed the available data The above note reflects our thoughts and discussion RYDER ARREDONDO MD documented in this encounter Miscellaneous Notes * Assessment & Plan Note - Beau Julian MD - 12/29/2021 3:05 PM EDT Associated Problem(s): Status post ablation of atrial flutter 01/02/2022 Mr. Shell presents for evaluation of tachycardia. EKG today notable for 201 atrial flutter, suspicious for clockwise atrial flutter. No prior history of cardiac disease, CA, or cardiac surgery.We discussed management this rhythm. Per his vital sign checks at home's history of paroxysmal otherwise asymptomatic, though he may be having some worsening shortness of breath due to this arrhythmia. Given the concern for potential right atrial flutter I do think an EP study and ablation would bereasonable, however if he would have a left-sided [...] block. His vital signs are otherwise normal. Perhis home review he is paroxysmal. We will plan on uptitrating his metoprolol succinate to 75 mg daily for further rate control. We did advise him to call us if he develops any worsening shortness of breath, chest discomfort, syncope, or any other symptoms to expedite his evaluation. documented in this encounter Plan of Treatment Upcoming Encounters Date Type Department Care Team (Late st Contact Info) Description 12/23/2024 3:30 PM EDT Office Visit Cardiology at [address] [place] [address] Carlos Eduardo Quan PA [facility] [place] [address] documented as of this encounter Procedures Procedure Name Priority Date/Time Associated Diagnosis Comments EKG 12-LEAD Routine 12/27/2021 10:55 AM EDT Atrial fibrillation, unspecified type documented in this encounter Results * (ABNORMAL) Basic Metabolic Panel (non-fasting) (01/02/2022 7:15 AM EDT) Glucose 200(H) 65 - 199 mg/dL [facility] Comment:Diabetes: >=200 mg/d L plus symptoms Blood Urea Nitrogen 18 10 - 20 mg/dL [facility] Creatinine 0.89 0.80 - 1.50 mg/dL [facility] Sodium 140 135 - 145 mmol/L [facility] Potassium 4.5 3.5 - 5.0 mmol/L [facility] Comment: Please note: ??Patients with WBC >100,000 may have falsely elevated Potassium levels. ??For accurate Potassium quantification in these patients send serum separator tube (gold top) for subsequent determinations. ??Contact the Clinical Chemistry Laboratory if there are any questions. Chloride 105 98 - 107 mmol/L [facility] Carbon Dioxide 23 22 - 31 mmol/L [facility] Anion Gap 12 5 - 15 mmol/L [facility] Calcium 9.1 8.5 - 10.5 mg/dL [facility] Est Glomerular Filtration Rate 86 >=60 mL/min/1. 73 m?? [facility] Comment: This patient? s [...] Arredondo MD CHEMISTRY ORDERABLES Performing Organization Address City/[facility]/ZIP Co de Phone Number [facility] [place] [address] * EKG 12 Lead (12/27/2021 10:55 AM EDT) Ventricular rate 151 BPM MUSE SYSTEM QRS Duration 102 ms MUSE SYSTEM Q-T Interval 314 ms MUSE SYSTEM QTC Calculated (Bezet) 497 ms MUSE SYSTEM Calculated R Boulder -16 degrees MUSE SYSTEM Calculated T [place]oulder 11 degrees MUSE SYSTEM INTERPRETATION Atrial flutter with 2 to 1 block Abnormal ECG No previous ECGs available Confirmed by MD Juan, Osiel ([id number]) on 12/27/2021 3:09:37 PM MUSE SYSTEM 12/27/2021 10:5 5 AM EDT 12/27/2021 3:09 PM EDT Ryder Arredondo MD ECG ORDERABLES MUSE SYSTEM documented in this encounter Visit Diagnoses Diagnosis Atrial fibrillation, unspecified type- Primary Typical atrial flutter Atrial flutter documented in this encounter Care Teams Postal Clerk Relationship Specialty Start Date End Date Domenica Atkins APRN PCP - General Family Medicine 3/22/22 documented as of this encounter
--- OUTSIDE RECORDS SUMMARY | 2024-06-11 18:10 | XMS_ITS | Encounter Summary ---
Author Organization [facility] [place] [address] Care Team Providers Care Supervisor Cigarette Making Department Name Role Phone Domenica Atkins Dayron AGUILAR Primary Care Provider [phone] Encounter Details Date Type Department Care Team (Late st Contact Info) Description 12/21/2021 Telephone Cardiology at [address] [address] Dora Palacio Social History Tobacco Use Types Packs/Day Years Used Date Smoking Tobacco: Never Assessed Sex and Gender Information Value Date Recorded Sex Assigned at Not on file Gender Identity Not on file Sexual Orientation Not on file documented as of this encounter Miscellaneous Notes * Telephone Encounter - Dora Palacio - 12/21/2021 8:36 AM EDT Records request faxed to [facility] at [phone]. Dora Palacio EP Scheduling documented in this encounter Plan of Treatment Upcoming Encounters Date Type Department Care Team (Late st Contact Info) Description 12/23/2024 3:30 PM EDT Office Visit Cardiology at [address] [phone] Carlos Eduardo Quan, PA [facility] [place] [address] documented as of this encounter Visit Diagnoses Not on filedocumented in this encounter Care Teams Supervisor Cigarette Making Department Relationship Specialty Start Date End Date Domenica Atkins APRN PCP - General Family Medicine 11/21/21 documented as of this encounter
--- OUTSIDE RECORDS SUMMARY | 2024-06-11 18:10 | XMS_ITS | Encounter Summary ---
[place] [address] Care Team Providers Care Mortgage Loan Assistant Name Role Phone Milly Domenica Dayron AGUILAR Primary Care Provider [phone] Encounter Details Date Type Department Care Team (Late st Contact Info) Description 02/19/2022 [place] [address] [place] [address] Social History Tobacco Use Types Packs/Day Years Used Date Smoking Tobacco: Never Smokeless Tobacco: Never Sex and Gender Information Value Date Recorded Sex Assigned at Not on file Gender Identity Not on file Sexual Orientation Not on file documented as of this encounter Miscellaneous Notes * Telephone Encounter - Carlos Eduardo Quan PA [...] PM EDT Office Visit Cardiology at [address] [place] [address] Carlos Eduardo Quan PA [facility] [place] [address] documented as of this encounter Visit Diagnoses Not on filedocumented in this encounter Care Teams Mortgage Loan Assistant Relationship Specialty Start Date End Date Domenica Atkins, LAUREN PCP - General Family Medicine 11/21/21 documented as of this encounter
--- OUTSIDE RECORDS SUMMARY | 2024-06-11 18:10 | XMS_ITS | Encounter Summary ---
[place] [address] Care Team Providers Care Public Address Servicer Name Role Phone Milly Domenica Padgett APRN Primary Care Provider [phone] Reason for Visit * Reason Onset Date Comments Pre Procedure Call 02/16/2022 Encounter Details Date Type Department Care Team (Late st Contact Info) Description 02/16/2022 Telephone Cardiology at [address] [address] Damaris Bowen RN Pre Procedure Call Social History Tobacco Use Types Packs/Day Years Used Date Smoking Tobacco: Never Smokeless Tobacco: Never Sex and Gender Information Value Date Recorded Sex Assigned at Not on file Gender Identity Not on file Sexual Orientation Not on file documented as of this encounter Miscellaneous Notes * Telephone Encounter - Damaris Bowen RN - 02/16/2022 8:53 AM EDTSummary: Pre Procedure Call: Sotalol Drug Load Admission TC to pt to relay pre admission instructions for sotalol drug load scheduled on 02/20. Work up provider is Carlos Eduardo Quan. Reconciled medication list including ensuring he is on a blood thinner (currently on Eliquis, usingup last of supply and then will transition to Xarelto because it is more cost effective) Pt reports that he missed a dose of his Eliquis on Saturday (02/12/22) as directed by his PCP due to arecent fall the patient had on 02/08 Notified pt that we do not have SYDNEY availability & that drug load will need to be cancelled for02/20 & rescheduled to a later date due to missed dose. Pt reports that he is not rescheduling and would like to speak with Carlos Eduardo Quan. Notified Carlos Eduardo Quan who will reach out to patient at his earliest availability. documented in this encounter Plan of Treatment Upcoming Encounters Date Type Department Care Team (Late st Contact Info) Description 12/23/2024 3:30 PM EDT Office Visit Cardiology at [address] [address] Carlos Eduardo Quan PA [facility] [place] [address] documented as of this encounter Visit Diagnoses Not on filedocumented in this encounter Care Teams Public Address Servicer Relationship Specialty Start Date End Date Domenica Atkins APRN PCP - General Family Medicine 11/21/21 documented as of this encounter
--- OUTSIDE RECORDS SUMMARY | 2024-06-11 18:10 | XMS_ITS | Encounter Summary ---
[place] [address] Care Team Providers Care Photographer Finish Name Role Phone Domenica Atkins Dayron AGUILAR Primary Care Provider [phone] Encounter Details Date Type Department Care Team (Late st Contact Info) Description 01/11/2022 Telephone Cardiology at [address] [address] Génesis Giordano, RN Social History Tobacco Use [...] discussed with Dr. Arredondo yesterday. Génesis Giordano RN Cardiology [facility] at [facility] [address] documented in this encounter Plan of Treatment Upcoming Encounters Date Type Department Care Team (Late st Contact Info) Description 12/23/2024 3:30 PM EDT Office Visit Cardiology at [address] [place] [address] Carlos Eduardo Quan, [facility] [place] [address] documented as of this encounter Visit Diagnoses Not on filedocumented in this encounter Care Teams Photographer Finish Relationship Specialty Start Date End Date Domenica Atkins APRN PCP - General Family Medicine 11/21/21 documented as of this encounter
--- OUTSIDE RECORDS SUMMARY | 2024-06-11 18:10 | XMS_ITS | Encounter Summary ---
Author Organization [facility] Address [address] [place] [address] Care Team Providers Care Bone Crusher Name Role Phone Unknown, Provider Primary Care Provider Encounter Details Date Type Department Care Team (Late st Contact Info) Description 12/30/2021 Lab Requisition [facility] Pathology & Laboratory Medicine - [address] [address] Outr Resulting Lab, Provider Social History Tobacco [...] Procedure Name Priority Date/Time Associated Diagnosis Comments ZZCOVID-19 TEST [facility] PCR Today 12/29/2021 13:30 EDT COVID-19 TESTING Routine 12/29/2021 13:3 0 EDT documented in this encounter Results * COVID-[address] [facility] (12/29/2021 13:30 EDT) Swab 12/29/2021 13:3 0 EDT 12/30/2021 21:47 EDT Provider Outr Resulting Lab MICROBIOLOGY - GENERAL ORDERABLES [facility] [address] [place] [address] * COVID-19 TESTING (12/29/2021 13:30 EDT) COVID-19 rt-PCR Result Negative Negative 12/31/2021 14:21 EDT [facility] Comment: This test has not been FDA cleared or approved. This test has been authorized by FDA under an EUA for use by authorized laboratories. This test has been authorized only for detection of nucleic acid from 2019-nCoV, not for any other viruses or pathogens. This test is only authorized for the duration of the declaration that circumstances exist justifying the authorization of emergency use of in vitro diagnostic tests for detection and/or diagnosis of 2019-nCoV under section 564(b)(1) of Act, 21 U.S.C ?? 360bbb-3(b) (1), unless the authorization is terminated or revoked sooner. Negative results do not preclude 2019-nCoV infection and should not be used as the sole basis for treatment or other patient management decisions. Negative results must be combined with clinical observations, patient history, and epidemiological information. Testing was performed using the garret SARS-CoV-2 assay ([employer] on the Garret 6800 System Performing Lab Garret 6800 [facility] 12/31/2021 14:21 EDT [facility] Swab 12/29/2021 13:3 0 EDT 12/30/2021 21:47 EDT Provider Outr Resulting Lab MICROBIOLOGY - GENERAL ORDERABLES [facility] [address] [place] [address] documented in this encounter Visit Diagnoses Not on filedocumented in this encounter Care Teams Bone Crusher Relationship Specialty Start Date End Date Unknown, Provider, PCP - General 12/01/20 documented as of this encounter
--- OUTSIDE RECORDS SUMMARY | 2024-06-11 18:10 | XMS_ITS | Encounter Summary ---
Author Organization [facility] Address [address] [place] [address] Care Team Providers Care Beach Patrol Lieutenant Name Role Phone Unknown, Provider Primary Care Provider Encounter Details Date Type Department Care Team (Late st Contact Info) Description 02/28/2024 Lab Requisition [facility] Pathology & Laboratory Medicine - [facility] [address] [place] [address] Outr Resulting Lab, Provider Social History Tobacco [...] Associated Diagnosis Comments PSA TOTAL, DIAGNOSTIC Routine 02/28/2024 9:35 EDT documented in this encounter Results * PSA TOTAL, DIAGNOSTIC (02/28/2024 9:35 EDT) PSA 0.3 <=6.5 ng/mL 02/28/2024 23:13 EDT [facility] Blood VENOUS BLOOD / Unknown 02/28/2024 9:35 EDT 02/28/2024 22:23 EDT Narrative [facility] - 02/28/2024 23:13 EDT NOTE: Serum PSA concentration should not be interpreted as absolute evidence for the presence or absence of malignant disease. Assayed on Siemens [employer] Data Symmetryaur XPT using chemiluminescent technology.??Values obtained by using different assay methods cannot be used interchangeably. Provider Outr Resulting Lab CHEMISTRY & BLOOD GAS ORDERABLES [facility] [address] [id number] documented in this encounter Visit Diagnoses Not on filedocumented in this encounter Care Teams Beach Patrol Lieutenant Relationship Specialty Start Date End Date Unknown, Provider, PCP - General 12/01/20 documented as of this encounter
--- OUTSIDE RECORDS SUMMARY | 2024-06-11 18:10 | XMS_ITS | Encounter Summary ---
[place] [address] Care Team Providers Care Fitness Specialist Name Role Phone Milly Domenica Dayron AGUILAR Primary Care Provider [phone] Reason for Visit * Auth/Cert Specialty Diagnoses / Procedures Referred By Valeria russell Referred To Contact Diagnoses CHF (congestive heart failure) Chronic atrial fibrillation Jeremy Jackman MD [facility] [place] [address] [facility] Referral ID Status Reason Start Date Expiration Date Visits Re quested Visits Authorized [id number] 1 1 Encounter Details Date Type Department Care Team (Late st Contact Info) Description 03/01/2022 10:07 AM EDT Anesthesia Event Non-[place] [address] Adama Silva MD [facility] [place] [address] Anesthesia Record Procedure Summary Procedure Name Responsible Anesthesiologist Anesthesia Start Time Anesthesia Stop Time TRANSESOPHAGEAL ECHOCARDIOGRAM (SYDNEY) WITH CARDIOVERSION Adama Silva MD 03/01/22 1007 03/01/22 1056 Events Date Time Event Comment 03/01/2022 1006 AN Verify 1007 Start 1007 An Start Data 1056 Stop Meds Name Total Propofol INF 223.2 mg PHENYLephrine 160 mcg * Agents No agents on file. * Blood No blood administrations on file. Lines, Drains, and Airways Type Details Placement Removal (RETIRED) Peripheral IV Line - Single Lumen 02/28/22; 1123; median cubital vein (antecubital fossa), right; memz-paj-vkcrok catheter system; Anatomical Landmarks; US Not Used; 18 gauge; Ramiro NRP; tolerated well; 03/03/22; 1046 02/28/22 1123 by Ramiro Conley NRP 03/03/22 1046 by Luz Rodriguez RN (RETIRED) Peripheral IV Line - Single Lumen 02/28/22; 1822; median cubital vein (antecubital fossa), left; amkm-ofg-efgciw catheter system; Anatomical Landmarks; US Not Used; 18 gauge; Ramiro NRP; tolerated well; 1; cephalic vein (lateral side of arm), left; 03/11/22; 1353 02/28/22 1822 by Ramiro Conley NRP 03/11/22 1353 by Annetta Man RN documented in this encounter Social History [...] OR Notes * Anesthesia Postprocedure Evaluation - Adama Silva MD - 03/01/2022 3:23 PM EDT Department of Anesthesiology Post-procedure Note Patient: Wilber Shell Procedure Summary Date: 03/01/22 Room / Location: Non-Invasive Cardiology Lab [facility] Anesthesia Start: 1007 Anesthesia Stop: 1056 Procedure: TRANSESOPHAGEAL ECHOCARDIOGRAM (SYDNEY) WITH CARDIOVERSION Diagnosis: Chronic atrial fibrillation Scheduled Providers: Responsible Provider: Adama Silva MD Anesthesia Type: MAC ASA Status: 3 All Anesthesia Providers: Anesthesiologist: Adama Silva MD Vitals Value Taken Time BP 134/80 03/01/22 1521 Temp Pulse 91 03/01/22 1523 Resp 20 03/01/22 1523 SpO2 94 % 03/01/22 1522 Pain Level Vitals shown include unvalidated device data. Patient Location: [facility] Level of Consciousness: Pain Management: PONV: Cardiovascular Status: Respiratory Status: Postoperative Fluid Status: Possible Anesthetic Complications: Final Primary Anesthesia Type: Comments: Post anesthesia note The patient has been seen in the post anesthetic period. There are no apparent complications. Nausea/vomiting and pain are either not an issue or are being treated. The patient is hemodynamically stable and at a baseline respiratory status. The intravascular volume status appears to be at euvolemia. * Anesthesia Preprocedure Evaluation - Adama Silva MD - 03/01/2022 9:00 AM EDT Pre-Anesthesia Evaluation for: Wilber Shell a 72 y.o. male. * No procedures listed * Patient Active Problem List Diagnosis Date Noted ??? CHF (congestive heart failure) 02/28/2022 ??? Typical atrial flutter 12/29/2021 ??? Type 2 diabetes mellitus 06/25/2016 No past medical history on file. No past surgical history on file. Social History Tobacco Use ??? Smoking status: Never Smoker ??? Smokeless tobacco: Never Used Substance Use Topics ??? Alcohol use: Not Currently Social History Substance and Sexual Activity Drug Use Never No Known Allergies Medications: MAR and/or home medications have been reviewed. Physical Exam: Preprocedure Vitals Current as of 03/01/22 1007 BP: 115/94 Pulse: 80 Resp: 20 SpO2: 97 Temp: Height: 170.2 cm (5' 7) (02/28/22) Weight: 111.6 kg (246 lb 0.5 oz) (03/01/22) BMI: 38.53 IBW: 66.1 kg (145 lb 12.2 oz) Last edited 03/01/22 1000 by RL Airway Assessment: Mallampati: I Neck ROM: full Cardiovascular Assessment: Rhythm: irregular Pulmonary Assessment: unlabored breathing Dental Assessment: Misc Assessment: Last Filed Perioperative Cognitive Screening None Anesthesia Plan: ASA 3 MAC, Informed Consent: Anesthesia Screening documented in this encounter Plan of Treatment Upcoming Encounters Date Type Department Care Team (Late st Contact Info) Description 12/23/2024 3:30 PM EDT Office Visit Cardiology at [address] [place] [phone] Carlos Eduardo Quan, ALISON [facility] [place] [address] documented as of this encounter Visit Diagnoses Not on filedocumented in this encounter Administered Medications Inactive Administered Medications - up to 3 most recent administrations Medication Order MAR Action Action Date Dose Rate Site PHENYLephrine in NS (PF) (ARIANNA-SYNEPHRINE) 0.8 mg/10 mL (80 mcg/mL) multi-dose injection Syrg Intravenous, PRN, Starting on Susanne 03/01/22 at 1042, Until Susanne 03/01/22 at 1056, Anesthesia Intra-op, Routine Given 03/01/2022 10:42 AM EDT 160 mcg propofoL (Diprivan) (10 mg/mL) infusion Intravenous, CONTINUOUS PRN, Starting on Susanne 03/01/22 at 1034, Until Susanne 03/01/22 at 1056, Anesthesia Intra-op, Routine Rate/Dose Change 03/01/2022 10:38 AM EDT 100 mcg/kg/min 66.96 mL/hr New Bag 03/01/2022 10:34 AM EDT 125 mcg/kg/min 83.7 mL/ hr documented in this encounter Care Teams Fitness Specialist Relationship Specialty Start Date End Date Domenica Atkins, MAT WORKER PCP - General Family Medicine 11/21/21 documented as of this encounter
== END 2024-06-11 18:07 | disposition home or self-care (01) ==
LOC: NCHCN 18:06
PROVIDERS: Internal Medicine Cardiovascular Disease; PCP Family Medicine; Visit Provider Family Medicine
DX: E11.9 Type 2 diabetes mellitus without complications (principal); Z79.899 Other long term (current) drug therapy
CPT/HCPCS: 80048; 83036; 84443

== ENCOUNTER → 2024-06-17 14:07 | Outpatient (BNVA) | payer MEDICARE, BC, SELFPAY | PROVIDERS: PCP Family Medicine; Referring Provider Family Medicine; Visit Provider Podiatrist | DX: E11.42 Type 2 diabetes mellitus with diabetic polyneuropathy (principal); B35.1 Tinea unguium; L60.3 Nail dystrophy; G62.9 Polyneuropathy, unspecified | CPT/HCPCS: 11721 ==

== ENCOUNTER 2024-07-06 08:34 | Outpatient (CLI) | payer MEDICARE, BC, SELFPAY | END 2024-07-06 08:35 | disposition home or self-care (01) | LOC: DI.CARD 08:35 | PROVIDERS: PCP Family Medicine; Visit Provider Internal Medicine Cardiovascular Disease | CPT/HCPCS: 93010 ==

== ENCOUNTER 2024-07-10 10:27 | Outpatient (REF) | payer MEDICARE, BC, SELFPAY ==
--- OUTSIDE RECORDS SUMMARY | 2024-07-10 10:29 | XMS_ITS | Encounter Summary ---
Author Organization [facility] [place] [address] Care Team Providers Care Lard Bleacher Name Role Phone Milly Domenica Padgett APRN Primary Care Provider [phone] Encounter Details Date Type Department Care Team (Late st Contact Info) Description 12/25/2022 External Results Cardiology at [address] [place] [address] Lalita Cisneros RN Social History [...] place to sleep or slept in a [facility] (including now)? No 03/23/2022 Sex and Gender Information Value Date Recorded Sex Assigned at Not on file Gender Identity Not on file Sexual Orientation Not on file documented as of this encounter Plan of Treatment Upcoming Encounters Date Type Department Care Team (Late st Contact Info) Description 12/23/2024 3:30 PM EDT Office Visit Cardiology at [address] [place] [address] Carlos Eduardo Quan PA [facility] [place] [address] documented as of this encounter Procedures Procedure [...] on filedocumented in this encounter Care Teams Lard Bleacher Relationship Specialty Start Date End Date Domenica Atkins APRN PCP - General Family Medicine 11/21/21 documented as of this encounter
--- OUTSIDE RECORDS SUMMARY | 2024-07-10 10:29 | XMS_ITS | Encounter Summary ---
[place] [address] Care Team Providers Care J2Ee Programmer Name Role Phone Milly Domenica Padgett APRN Primary Care Provider [phone] Encounter Details Date Type Department Care Team (Late st Contact Info) Description 12/12/2022 Telephone Cardiology at [address] [phone] Dora Palacio Social History Tobacco Use Types [...] to sleep or slept in a senior living (including now)? No 03/23/2022 Sex and Gender Information Value Date Recorded Sex Assigned at Not on file Gender Identity Not on file Sexual Orientation Not on file documented as of this encounter Miscellaneous Notes * Telephone Encounter - Dora Palacio - 12/12/2022 10:38 AM EDT Echo and office notes faxed to Deirdre at [facility] at [phone]. No ins prior auth needed. Call reference #: [id number]. Dora Palacio EP Scheduling/Film Sound Engineer documented in this encounter Plan of Treatment Upcoming Encounters Date Type Department Care Team (Late st Contact Info) Description 12/23/2024 3:30 PM EDT Office Visit Cardiology at [address] [place] [phone] Carlos Eduardo Quan PA [facility] [place] [address] documented as of this encounter Visit Diagnoses Not on filedocumented in this encounter Care Teams J2Ee Programmer Relationship Specialty Start Date End Date Domenica Atkins APRN PCP - General Family Medicine 11/21/21 documented as of this encounter
--- OUTSIDE RECORDS SUMMARY | 2024-07-10 10:29 | XMS_ITS | Encounter Summary ---
Author Organization [facility] [place] [address] Care Team Providers Care Safety Consultant Name Role Phone Milly Domenica Padgett APRN Primary Care Provider [phone] Reason for Visit * Reason Comments Atrial Fibrillation Cardiomyopathy Encounter Details Date Type Department Care Team (Late st Contact Info) Description 11/07/2022 1:40 PM EST Office Visit Cardiology at [address] [address] Curtis Arredondo MD [facility] [place] [address] Persistent atrial fibrillation Social History Tobacco Use [...] Follow Up Patient ID Wilber Shell 1950 [id number] Wilber Shell is following up in EP [...] follow up at the EP clinic in [place],he was in AF/RVR - plans were made [...] gauge x 1/2 Needle 31 g by [facility].(Non-Drug; Combo Route) route daily. 31Gx1/4 ??? metoprolol [...] personally reviewed the ECG: Sinus 56 bpm, [place] 180ms, QRS 80ms, QT 480ms Impression Wilber [...] to have his repeat echocardiogram done at [facility]. I ordered this. Recommendations / Plan A) [...] months time CURTIS ARREDONDO MD Cardiac Electrophysiology [facility] [place] T: [phone] F: [phone] 15 minutes of this 20 minute encounter [...] 3:30 PM EDT Office Visit Cardiology at [address] [place] [address] Carlos Eduardo Quan PA [facility] [place] [address] documented as of this encounter Visit Diagnoses Diagnosis Persistent atrial fibrillation Atrial fibrillation documented in this encounter Care Teams Safety Consultant Relationship Specialty Start Date End Date Domenica Atkins APRN PCP - General Family Medicine 11/21/21 documented as of this encounter
--- OUTSIDE RECORDS SUMMARY | 2024-07-10 10:29 | XMS_ITS | Encounter Summary ---
Author Organization [facility] Address [facility] [place] [address] Care Team Providers Care Saw Man Name Role Phone Milly Domenica Padgett APRN Primary Care Provider [phone] Encounter Details Date Type Department Care Team [...] PM EDT Office Visit Cardiology at [address] [place] [address] Carlos Eduardo Quan PA [facility] [place] [address] documented as of this encounter Visit Diagnoses Not on filedocumented in this encounter Care Teams Saw Man Relationship Specialty Start Date End Date Domenica Atkins APRN PCP - General Family Medicine 11/21/21 documented as of this encounter
--- OUTSIDE RECORDS SUMMARY | 2024-07-10 10:29 | XMS_ITS | Encounter Summary ---
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 Social History [...] Follow Up Patient ID Wilber Shell 1950 [id number] Wilber Shlel is following up in EP clinic Chief [...] follow up at the EP clinic in [place],he was in AF/RVR - plans were made [...] gauge x 1/2 Needle 31 g by [facility].(Non-Drug; Combo Route) route [...] reviewed the ECG: sinus bradycardia 54 bpm, [place] 180ms, QRS 80ms, QT 500ms Impression Wilber [...] that time CURTIS ARREDONDO MD Cardiac Electrophysiology [facility] T: [phone] F: [phone] 15 minutes of this 20 minute encounter [...] PM EDT Office Visit Cardiology at [address] [place] [address] Carlos Eduardo Quan PA [facility] [place] [address] Scheduled Orders Name Type Priority Associated Diagnoses Orde r Schedule Basic Metabolic Panel (non-fasting) Lab Routine prison current use of antiarrhythmic drug Expected: 05/15/2023, Expires: 05/14/2024 TSH Lab Routine 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
--- OUTSIDE RECORDS SUMMARY | 2024-07-10 10:29 | XMS_ITS | Encounter Summary ---
Author Organization [facility] Address [facility] [place] [address] Care Team Providers Care Hazardous Waste Remover Name Role Phone Milly Domenica Padgett APRN Primary Care Provider [phone] Reason for Visit * Reason Onset Date Comments Medication Refill 10/15/2022 Encounter Details Date Type Department Care Team (Late st Contact Info) Description 10/15/2022 Refill Cardiology at [address] [address] Curtis Arredondo MD [facility] [place] [address] Medication Refill Social History Tobacco Use Types [...] place to sleep or slept in a [facility] (including now)? No 03/23/2022 Sex and Gender [...] [place] at mail order pharmacy in [place]. Will contact pt with any changes. documented in this encounter Plan of Treatment Upcoming Encounters Date Type Department Care Team (Late st Contact Info) Description 12/23/2024 3:30 PM EDT Office Visit Cardiology at [address] [place] [address] Carlos Eduardo Quan PA [facility] [place] [address] documented as of this encounter Visit Diagnoses Not on filedocumented in this encounter Care Teams Hazardous Waste Remover Relationship Specialty Start Date End Date Domenica Atkins, CHILDREN'S COUNSELOR PCP - General Family Medicine 11/21/21 documented as of this encounter
--- OUTSIDE RECORDS SUMMARY | 2024-07-10 10:29 | XMS_ITS | Encounter Summary ---
Author Organization [facility] [place] [address] Care Team Providers Care Linux Network Administrator Name Role Phone Milly Domenica Padgett APRN Primary Care Provider [phone] Reason for Visit * Reason Comments Atrial Fibrillation Congestive Heart Failure Encounter Details Date Type Department Care Team (Latest Contact Info) Description 06/10/2024 2:00 PM EDT Office Visit Cardiology at [address] [address] Curtis Arredondo MD [facility] [place] [address] residential current use of antiarrhythmic drug Social History [...] Follow Up Patient ID Wilber Shell 1950 [id number] Wilber Shell is following up in EP [...] follow up at the EP clinic in [place],he was in AF/RVR - plans were made [...] gauge x 1/2 Needle 31 g by [facility].(Non-Drug; Combo Route) route daily. 31Gx1/4 metoprolol succinate [...] reviewed the ECG: sinus bradycardia 54 bpm, [place] 180ms, QRS 80ms, QT 500ms Impression Wilber [...] 6 months CURTIS ARREDONDO MD Cardiac Electrophysiology [facility] T: [phone] F: [phone] 15 minutes of this 20 minute encounter [...] PM EDT Office Visit Cardiology at [address] [phone] Carlos Eduardo Quan, ALISON [facility] [place] [address] Scheduled Orders Name Type Priority Associated Diagnoses Orde r Schedule TSH Lab Routine residential current use of antiarrhythmic drug Expected: 06/10/2024, Expires: 06/10/2025 Hepatic Function Panel Lab Routine residential current use of antiarrhythmic drug Expected: 06/10/2024, Expires: 06/10/2025 TSH Lab Routine manager intermediate current use of antiarrhythmic drug Expected: 06/10/2024, Expires: 06/10/2025 Basic Metabolic Panel Non-fasting Lab Routine manager intermediate current use of antiarrhythmic drug Expected: 06/10/2024, Expires: 12/10/2024 documented as of this encounter Visit Diagnoses Diagnosis residential current use of antiarrhythmic drug documented in this encounter Care Teams Linux Network Administrator Relationship Specialty Start Date End Date Domenica Atkins APRN PCP - General Family Medicine 11/21/21 documented as of this encounter
--- OUTSIDE RECORDS SUMMARY | 2024-07-10 10:29 | XMS_ITS | Encounter Summary ---
Author Organization [facility] [place] [address] Care Team Providers Care Rebeamer Name Role Phone Milly Domenica Dayron AGUILAR Primary Care Provider [phone] Encounter Details Date Type Department Care Team (Late st Contact Info) Description 05/21/2023 External Results Cardiology at [address] [place] [address] Donna Arredondo, RN Social History [...] 3:30 PM EDT Office Visit Cardiology at [address] [place] [address] Carlos Eduardo Quan, ALISON [facility] [place] [address] documented as of this encounter Procedures Procedure [...] on filedocumented in this encounter Care Teams Rebeamer Relationship Specialty Start Date End Date Domenica Atkins APRN PCP - General Family Medicine 11/21/21 documented as of this encounter
--- OUTSIDE RECORDS SUMMARY | 2024-07-10 10:29 | XMS_ITS | Encounter Summary ---
Author Organization [facility] Address [facility] [place] [address] Care Team Providers Care Flow Machine Operator Name Role Phone Milly Domenica Padgett APRN Primary Care Provider [phone] Encounter Details Date Type Department Care Team (Late st Contact Info) Description 12/19/2022 Telephone Cardiology at [address] [place] [address] Curtis Arredondo MD [facility] [place] [address] Social History Tobacco Use Types Packs/Day Years [...] place to sleep or slept in a group home (including now)? No 03/23/2022 Sex and [...] PM EDT ----- Regarding: RE: echo from [facility] Thanks - looks good. Can you let him know that there has been an improvement over prior and his LVEF is essentially normalised Rashid Haines ----- Message ----- From: Lalita Cisneros RN Sent: 12/18/2022 4:08 PM EDT To: Curtis Arredondo MD Subject: echo from [facility] Echo from [facility] has been scanned on this patient. Meron Mike documented in this encounter Plan of Treatment Upcoming Encounters Date Type Department Care Team (Late st Contact Info) Description 12/23/2024 3:30 PM EDT Office Visit Cardiology at [address] [place] [phone] Carlos Eduardo Quan, ALISON [facility] [place] [address] documented as of this encounter Visit Diagnoses Not on filedocumented in this encounter Care Teams Flow Machine Operator Relationship Specialty Start Date End Date Domenica Atkins APRN PCP - General Family Medicine 11/21/21 documented as of this encounter
--- OUTSIDE RECORDS SUMMARY | 2024-07-10 10:29 | XMS_ITS | Encounter Summary ---
Author Organization [facility] [place] [address] Care Team Providers Care Medic Technician Name Role Phone Milly Domenica Padgett APRN Primary Care Provider [phone] Reason for Visit * Reason Comments Atrial Fibrillation Encounter Details Date Type Department Care Team (Late st Contact Info) Description 11/13/2023 2:00 PM EDT Office Visit Cardiology at [address] [address] Curtis Arredondo MD [place] [address] Persistent atrial fibrillation Social History Tobacco Use [...] Follow Up Patient ID Wilber Shell 1950 [id number] Wilber Shell is following up in EP [...] follow up at the EP clinic in [place],he was in AF/RVR - plans were made [...] gauge x 1/2 Needle 31 g by [facility].(Non-Drug; Combo Route) route daily. 31Gx1/4 metoprolol succinate [...] reviewed the ECG: sinus bradycardia 54 bpm, [place] 180ms, QRS 80ms, QT 500ms Impression Wilber [...] 6 months CURTIS ARREDONDO MD Cardiac Electrophysiology [facility] T: [phone] F: [phone] 15 minutes of this 20 minute encounter [...] 3:30 PM EDT Office Visit Cardiology at [address] [place] [address] Carlos Eduardo Quan, ALISON [facility] [place] [address] Scheduled Orders Name Type Priority Associated Diagnoses Orde r Schedule TSH Lab Routine Persistent atrial fibrillation Expected: 11/13/2023, Expires: 11/12/2024 Hepatic Function Panel Lab Routine Persistent atrial fibrillation Expected: 11/13/2023, Expires: 11/12/2024 documented as of this encounter Visit Diagnoses Diagnosis Persistent atrial fibrillation Atrial fibrillation documented in this encounter Care Teams Medic Technician Relationship Specialty Start Date End Date Domenica Atkins APRN PCP - General Family Medicine 11/21/21 documented as of this encounter
--- OUTSIDE RECORDS SUMMARY | 2024-07-10 10:29 | XMS_ITS | Clinical Summary ---
Author Organization [facility] Address One [facility] [place] [address] Care Team Providers Care Cotton Stripper Name Role Phone Milly Domenica Padgett APRN Primary Care Provider [phone] Allergies Active Allergy Reactions Criticality Noted Date [...] gauge x 1/2 Needle 31 g by [email or web address]Non-Drug; Combo Route) route daily. 31Gx1/4 Active terbinafine [...] flutter. No prior history of cardiac disease, SD, or cardiac surgery. We discussed management this [...] 2:00 PM EDT Office Visit Cardiology at [address] [phone] Curtis Arredondo MD manager intermediate current use of antiarrhythmic drug 06/10/2024 Travel [...] 3:30 PM EDT Office Visit Cardiology at [address] [place] [address] Carlos Eduardo Quan, PA [facility] [place] [address] Health Maintenance Due Date Last [...] 11/26/2022 08/28/2022, 03/01/2022 Covid-19 Vaccine (1 - 2023-2 5 season) 2024 Influenza (Flu) vaccine (1 o f 1 - Influenza standard series) 05/03/2024 DM Creatinine yearly 05/21/2024 05/21/2023, 10/02/2022, 08/28/2022, Additional history exists Lipid Screening Discontinued 02/28/2022 Procedures Procedure Name Priority Date/Time Associated Diagnosis Comments LAB SCAN 06/11/2024 12:00 AM EDT BASIC METABOLIC PANEL Routine 05/21/2023 HC HEMOGLOBIN A1C STAT 08/28/2022 4:5 2 PM EST LIPID PANEL (REFLEX DIRECT LDL) Routine 02/28/2022 9:30 PM EDT from Last 3 Months or Most Recently Relevant to Health Maintenance Results * Scan Doc: Lab (06/11/2024 12:00 AM EDT) Narrative 06/11/2024 12:00 AM EDT Ordered by an unspecified provider. Scanning Provider MEDIA MGR SCAN EXT O RDR/RSLT * Basic Metabolic Panel (non-fasting) (05/21/2023) Glucose [...] Hemoglobin A1c 8.2(H) 4.3 - 5.6 % [facility] Comment: Reference Range: 4.3 - 5.6% [...] Mellitus, Diabetes Care 2013; 36: Suppl. 1, F55-52 Estimated Average Glucose See note mg/dL [facility] Comment: Estimated Average Glucose not appropriate [...] into estimated average glucose values. ??Diabetes Care 2008:31(8):4145-4534. Blood 08/28/2022 4:52 PM EST 08/28/2022 5:15 PM EST Narrative Resulting Agency Comment Spec In Lab Michael Barrios MD CHEMISTRY ORDERABLES [facility] [place] [address] * Lipid Panel (Reflex Direct LDL) (02/28/2022 9:30 PM EDT) [facility] Signature Cholesterol, Total 96 mg/dL [facility] Comment: Lower Risk: <200 mg/dL Average Risk: 200-239 mg/dL Higher Risk: >zr=834 mg/dL Triglyceride 67 mg/dL [facility] Comment: Average Risk/Lower Risk: <150 mg/dL Borderline High Risk: 150-199 mg/dL High Risk: 200-499 mg/dL Very High Risk: >qt=956 mg/dL HDL Cholesterol 26 mg/dL [facility] Comment: Males: ?? Higher Risk: <40 mg/dL Females: ?? Higher Risk: <50 mg/dL LDL Cholesterol 57 mg/dL [facility] Comment: Lowest Risk: <100 mg/dL Lower Risk: 100-129 mg/dL Borderline High Risk: 130-159 mg/dL High Risk: 160-189 mg/dL Very High Risk: >tt=283 mg/dL Cholesterol/HDL Ratio 3.7 ratio [facility] Lipid Interpretation See Note [facility] Comment: Lipid management should be guided by a patient? s ASCVD risk, goals and preferences. ACC/AHA Guidelines recommend high intensity statin if clinical ASCVD or LDL greater than or equal to 190 mg/dL. [email or web address] Adults aged 40-75 with LDL 70-189 mg/dL should have their 10 year ASCVD risk estimated with the ACC/AHA ASCVD risk risk advisor http://tools.acc.org/ZJGXS-Jdeu-Jldkgrihg/ Statin should be discussed if risk greater [...] In Lab Jeremy Jackman MD CHEMISTRY ORDERABLES [facility] [place] [address] from Last 3 Months or Most Recently [...] Status decision made by: Patient Care Teams Cotton Stripper Relationship Specialty Start Date End Date Domenica Atkins, DIE CASTING SUPERVISOR PCP - General Family Medicine 11/21/21
--- OUTSIDE RECORDS SUMMARY | 2024-07-10 10:29 | XMS_ITS | Encounter Summary ---
Author Organization [facility] Address One [facility] [place] [address] Care Team Providers Care Metal Patternmaker Name Role Phone Milly Domenica Padgett APRN Primary Care Provider [phone] Encounter Details Date Type Department Care Team [...] PM EDT Office Visit Cardiology at [address] [place] [address] Carlos Eduardo Quan PA [facility] [place] [address] documented as of this encounter Visit Diagnoses Not on filedocumented in this encounter Care Teams Metal Patternmaker Relationship Specialty Start Date End Date Domenica Atkins APRN PCP - General Family Medicine 11/21/21 documented as of this encounter
--- OUTSIDE RECORDS SUMMARY | 2024-07-10 10:29 | XMS_ITS | Encounter Summary ---
[place] [address] Care Team Providers Care Electrical Instrument Repairer Name Role Phone Milly Domenica Padgett APRN Primary Care Provider [phone] Encounter Details Date Type Department Care Team (Late st Contact Info) Description 10/23/2022 Telephone Cardiology at [address] [phone] Domenica Nicole RN Social History Tobacco Use [...] - 10/23/2022 1:24 PM EST RTC to [facility] and advised via vm that pt was discontinued off Digoxin on 08/29/22 per chart records. Pt started Amiodarone on or after 09/02/22. Requested call back with any questions. documented in this encounter Plan of Treatment Upcoming Encounters Date Type Department Care Team (Late st Contact Info) Description 12/23/2024 3:30 PM EDT Office Visit Cardiology at [address] [place] [address] Carlos Eduardo Quan, [facility] [place] [address] documented as of this encounter Visit Diagnoses Not on filedocumented in this encounter Care Teams Electrical Instrument Repairer Relationship Specialty Start Date End Date Domenica Atkins APRN PCP - General Family Medicine 11/21/21 documented as of this encounter
--- OUTSIDE RECORDS SUMMARY | 2024-07-10 10:30 | XMS_ITS | Encounter Summary ---
Author Organization [facility] Address [facility] [place] [address] Care Team Providers Care Washery Engineer Name Role Phone Milly Domenica Dayron AGUILAR Primary Care Provider [phone] Encounter Details Date Type Department Care Team (Late st Contact Info) Description 08/28/2022 Orders Only Cardiology at [address] [phone] Brandon Mohr PA [facility] [place] [address] Persistent atrial fibrillation Social History Tobacco Use [...] 3:30 PM EDT Office Visit Cardiology at [address] [phone] Carlos dEuardo Quan, [facility] [place] [address] documented as of this encounter Visit Diagnoses Diagnosis Persistent atrial fibrillation Atrial fibrillation documented in this encounter Care Teams Washery Engineer Relationship Specialty Start Date End Date Domenica Atkins APRN PCP - General Family Medicine 11/21/21 documented as of this encounter
--- OUTSIDE RECORDS SUMMARY | 2024-07-10 10:30 | XMS_ITS | Encounter Summary ---
Author Organization [facility] Address [facility] [place] [address] Care Team Providers Care Linux Unix Engineer Name Role Phone Milly Domenica Dayron AGUILAR Primary Care Provider [phone] Encounter Details Date Type Department Care Team (Late st Contact Info) Description 04/12/2022 10:00 AM EDT Office Visit Cardiology at [address] [phone] [facility] [place] [address] Congestive heart failure, unspecified HF chronicity, unspecified [...] from the original note were not included. Formerly [facility] [place] [address] CARDIOLOGY OUTPATIENT CLINIC VISIT [facility] Wilber Shell 04/12/2022 Referring Providers: Domenica Atkins, Domenica Snowden APRN [address] [place] [id number] CHIEF COMPLAINT: Follow up of Afib CARDIAC-RELEVANT [...] underwent ablation [place] [facility] presented to [place] clinic at [place] on 01/10 were he was found to [...] showing well controlled BP. His labs from [facility] in show a Hb 13.6 and platelets [...] gauge x 1/2 Needle 31 g by [facility].(Non-Drug; Combo Route) route daily. 31Gx1/4 ??? UNABLE [...] Sincerely, Dr. Orlin Trujillo MD [place] [facility] Parts Representative Interventional Cardiology 04/12/2022 CC: Domenica Atkins APRN documented in this encounter Miscellaneous Notes * Addendum Note - Bridger Duncan - 04/12/2022 10:00 AM EDTAddended by: BRIDGER DUNCAN on: 04/12/2022 11:41 AM Modules accepted: Orders documented in this encounter Plan of Treatment Upcoming Encounters Date Type Department Care Team (Late st Contact Info) Description 12/23/2024 3:30 PM EDT Office Visit Cardiology at [address] [phone] [address] [facility] [address] documented as of this encounter Procedures Procedure Name Priority Date/Time Associated Diagnosis Comments HC VENIPUNCTURE Routine 04/12/2022 11:53 AM EDT Chronic atrial fibrillation Congestive heart failure, unspecified HF chronicity, unspecified heart failure type Typical atrial flutter Drug-induced ITP Persistent atrial fibrillation documented in this encounter Results * (ABNORMAL) Basic Metabolic Panel (non-fasting) (04/12/2022 11:53 AM EDT) Glucose 137 65 - 199 mg/dL [facility] Comment:Diabetes: >=200 mg/d L plus symptoms Blood Urea Nitrogen 15 10 - 20 mg/dL [facility] Creatinine 0.71(L) 0.80 - 1.50 mg/dL [facility] Sodium 142 135 - 145 mmol/L [facility] Potassium 4.4 3.5 - 5.0 mmol/L [facility] Comment: Please note: ??Patients with WBC >100,000 may have falsely elevated Potassium levels. ??For accurate Potassium quantification in these patients send serum separator tube (gold top) for subsequent determinations. ??Contact the Clinical Chemistry Laboratory if there are any questions. Chloride 106 98 - 107 mmol/L [facility] Carbon Dioxide 25 22 - 31 mmol/L [facility] Anion Gap 11 5 - 15 mmol/L [facility] Calcium 9.4 8.5 - 10.5 mg/dL [facility] Est Glomerular Filtration Rate 97 >=60 mL/min/1. 73 m?? [facility] Comment: This patient's estimated [...] In Lab Orlin Trujillo MD CHEMISTRY ORDERABLES [facility] [place] [address] documented in this encounter Visit Diagnoses Diagnosis Congestive heart failure, unspecified HF chronicity, unspecified heart failure type- Primary Chronic atrial fibrillation Atrial fibrillation Typical atrial flutter Atrial flutter Drug-induced ITP Other secondary thrombocytopenia Persistent atrial fibrillation Atrial fibrillation documented in this encounter Care Teams Linux Unix Engineer Relationship Specialty Start Date End Date Domenica Atkins, RF TEST TECHNICIAN PCP - General Family Medicine 11/21/21 documented as of this encounter
--- OUTSIDE RECORDS SUMMARY | 2024-07-10 10:30 | XMS_ITS | Encounter Summary ---
Author Organization [facility] Address [facility] [place] [address] Care Team Providers Care Area Director Of Home Health Sales Name Role Phone Milly Domenica Dayron AGUILAR Primary Care Provider [phone] Encounter Details Date Type Department Care Team (Late st Contact Info) Description 08/07/2022 Orders Only Cardiology at [address] [phone] Brandon Mohr PA [facility] [place] [address] Persistent atrial fibrillation Social History Tobacco Use [...] place to sleep or slept in a snf (including now)? No 03/23/2022 Sex and Gender Information Value Date Recorded Sex Assigned at Not on file Gender Identity Not on file Sexual Orientation Not on file documented as of this encounter Plan of Treatment Upcoming Encounters Date Type Department Care Team (Late st Contact Info) Description 12/23/2024 3:30 PM EDT Office Visit Cardiology at [address] [phone] Carlos Eduardo Quan PA [facility] [place] [address] documented as of this encounter Results * EKG 12 Lead (08/28/2022 11:18 AM EST) Ventricular rate 80 BPM MUSE SYSTEM QRS Duration 88 ms MUSE SYSTEM Q-T Interval 400 ms MUSE SYSTEM QTC Calculated (Bezet) 461 ms MUSE SYSTEM Calculated R [place] -15 degrees MUSE SYSTEM Calculated T [place] -8 degrees MUSE SYSTEM INTERPRETATION Atrial fibrillation [...] EST) Magnesium 0.84 0.69 - 1.07 mmol/L [facility] Blood 08/28/2022 10:3 7 AM EST 08/28/2022 10:50 AM EST Narrative Resulting Agency Comment Spec In Lab Connor Charles MD CHEMISTRY ORDERABLES [facility] [place] [address] * (ABNORMAL) Basic Metabolic Panel (non-fasting) (08/28/2022 10:37 AM EST) Glucose 274(H) 65 - 199 mg/dL [facility] Comment:Diabetes: >=200 mg/d L plus symptoms Blood Urea Nitrogen 19 10 - 20 mg/dL [facility] Creatinine 1.03 0.80 - 1.50 mg/dL [facility] Sodium 140 135 - 145 mmol/L [facility] Potassium 5.2(H) 3.5 - 5.0 mmol/L [facility] Comment: Please note: ??Patients with WBC >100,000 may have falsely elevated Potassium levels. ??For accurate Potassium quantification in these patients send serum separator tube (gold top) for subsequent determinations. ??Contact the Clinical Chemistry Laboratory if there are any questions. Chloride 104 98 - 107 mmol/L [facility] Carbon Dioxide 28 22 - 31 mmol/L [facility] Anion Gap 8 5 - 15 mmol/L [facility] Calcium 9.9 8.5 - 10.5 mg/dL [facility] Est Glomerular Filtration Rate 77 >=60 mL/min/1. 73 m?? [facility] Comment: This patient's estimated GFR was [...] Charles MD CHEMISTRY ORDERABLES Performing Organization Address City/State/[facility] Co de Phone Number [facility] [address] documented in this encounter Visit Diagnoses Diagnosis Persistent atrial fibrillation Atrial fibrillation documented in this encounter Care Teams Area Director Of Home Health Sales Relationship Specialty Start Date End Date Domenica Atkins APRN PCP - General Family Medicine 11/21/21 documented as of this encounter
--- OUTSIDE RECORDS SUMMARY | 2024-07-10 10:30 | XMS_ITS | Encounter Summary ---
Author Organization [facility] Address [facility] [place] [address] Care Team Providers Care Corrugator Operator Helper Name Role Phone Milly Domenica Dayron AGUILAR Primary Care Provider [phone] Encounter Details Date Type Department Care Team (Latest Contact Info) Description 10/02/2022 11:00 AM EST Office Visit Cardiology at [address] [address] Ryder Arredondo MD [facility] [place] [address] Persistent atrial fibrillation; Dilated cardiomyopathy; Thrombocytopenia; half-way current use of antiarrhythmic drug Social History [...] Follow Up Patient ID Wilber Shell 1950 [id number] Wilber Shell is following up in EP [...] follow up at the EP clinic in [place],he was in AF/RVR - plans were made [...] gauge x 1/2 Needle 31 [place] [facility] [place]Drug; Combo Route) route daily. 31Gx1/4 ??? metoprolol [...] reviewed the ECG: Sinus rhythm 61 bpm, AL 180ms, QRS 80ms, QT 440ms Impression Wilber [...] LV function RYDER ARREDONDO MD Cardiac Electrophysiology [facility] T: [phone] F: [phone] minutes of this 30 minute encounter were spent preparing to see the patient (e.g. review of tests), obtaining and/or reviewing separately obtained history, performing a medically appropriate examination and/or evaluation, counseling and educating the patient, ordering medications, tests, or procedures, documenting clinical information in the electronic, independently interpreting results Cc: Domenica Atkins, VETERINARY TECHNOLOGY INSTRUCTOR Recent Results (from the past 24 hour(s)) [...] 3:30 PM EDT Office Visit Cardiology at [address] [place] [address] Carlos Eduardo Quan, PA [facility] [place] [address] [phone] (work) documented as of this encounter Procedures Procedure Name Priority Date/Time Associated Diagnosis Comments HEMOGRAM Routine 10/02/2022 11:51 AM EST Thrombocytopenia DIFFERENTIAL, AUTOMATED Routine 10/02/2022 11:51 AM EST Thrombocytopenia HC CBC,PLT & AUTO DIFF Routine 10/02/2022 11:51 AM EST Thrombocytopenia HC VENIPUNCTURE Routine 10/02/2022 11:51 AM EST half-way current use of antiarrhythmic drug HEPATIC FUNCTION PANEL Routine 10/02/2022 11:51 AM EST oysterman current use of antiarrhythmic drug BASIC METABOLIC PANEL Routine 10/02/2022 11:51 AM EST oysterman current use of antiarrhythmic drug EKG 12-LEAD Routine 10/02/2022 11:09 AM EST Persistent atrial fibrillation documented in this encounter Results * (ABNORMAL) Differential, Automated (10/02/2022 11:51 AM EST) Neutrophil % 69.4 % [facility] Neutrophil Absolute 8.53(H) 1.70 - 6.10 x10(3)/mc L [facility] Lymph % 18.5 % [facility] Lymphocytes Abs 2.3 0.9 - 3.2 x10(3)/mc L [facility] Monocyte % 9.3 % [facility] Monocyte Abs 1.2(H) 0.3 - 0.9 x10(3)/mc L [facility] Eos % 1.5 % [facility] Eosinophils Abs 0.2 0.0 - 0.4 x10(3)/mc L [facility] Basophil % 0.8 % [facility] Baso Absolute 0.1 0.0 - 0.1 x10(3)/mc L [facility] Immature Gran % 0.50 % [facility] Comment: Immature granulocytes(IG's)percentage and absolute count will include metamyelocytes, myelocytes, and promyelocytes. Blood smears from CBCs yielding IG's will be scanned manually for concordance. If this scan disagrees with the automated IG or if promyelocytes are noted, a manual differential will be performed. Immature Gran Absolute 0.06(H) 0.00 - 0.04 x10(3)/mc L [facility] Blood 10/02/2022 11:5 1 AM EST 10/02/2022 11:58 AM EST Narrative Resulting Agency Comment Spec In Lab Ryder Arredondo MD HEMATOLOGY ORDERABLE S [facility] [place] [address] * (ABNORMAL) Hemogram (10/02/2022 11:51 AM EST) White Blood Cell 12.3(H) 4.0 - 9.5 x10(3)/mc L [facility] Red Blood Cell 4.80 4.58 - 5.54 x10(6)/mc L [facility] Hemoglobin 15.1 13.7 - 16.5 g/dL [facility] Hematocrit 44.0 40.5 - 48.5 % [facility] Mean Cell Volume 91.7 82.9 - 93.1 fL [facility] Mean Cell Hemoglobin 31.5 27.5 - 32.1 pg [facility] Mean Cell Hemoglobin Concentration 34.3 32.0 - 35.7 g/dL [facility] Platelet 208 145 - 357 x10(3)/mc L [facility] RDW Standard Deviation 46.0(H) 36.0 - 45.0 fL [facility] RDW coefficient of variation 13.5 11.4 - 13.8 % [facility] Mean Platelet Volume 10.4 7.6 - 12.9 fL [facility] NRBC% auto 0.0 % [facility] NRBC Absolute 0.000 0.000 - 0.000 x10(3)/mc L [facility] Blood 10/02/2022 11:5 1 AM EST 10/02/2022 11:58 AM EST Narrative Resulting Agency Comment Spec In Lab Ryder Arredondo MD HEMATOLOGY ORDERABLE S Performing Organization Address City/[facility]/ZIP Co de Phone Number [facility] [place] [address] * (ABNORMAL) TSH (10/02/2022 11:51 AM EST) [facility] Thyroid Stimulating Hormone 5.13(H) 0.27 - 4.20 mcIU/mL [facility] Comment: Reference Interval (mcIU/mL): Females: ??First Trimester: 0.23-3.88 ??Second Trimester: 0.22-3.90 ??Third Trimester: 0.44-4.66 Blood 10/02/2022 11:5 1 AM EST 10/02/2022 11:58 AM EST Narrative Resulting Agency Comment Spec In Lab Ryder Arredondo MD CHEMISTRY ORDERABLES Performing Organization Address [facility] Co de Phone Number [facility] [address] [place] [phone] * Hepatic Function Panel (10/02/2022 11:51 AM EST) [facility] Protein, Total 6.6 6.1 - 8.0 g/dL [facility] Albumin 4.2 3.2 - 5.2 g/dL [facility] Aspartate Aminotransferase 18 0 - 39 unit/L [facility] Alanine Aminotransferase 17 0 - 55 unit/L [facility] Alkaline Phosphatase 63 40 - 130 unit/L [facility] Bilirubin, Total 0.6 0.2 - 1.3 mg/dL [facility] Bilirubin, Direct <0.2 0.0 - 0.3 mg/dL [facility] Blood 10/02/2022 11:5 1 AM EST 10/02/2022 11:58 AM EST Narrative Resulting Agency Comment Spec In Lab Ryder Arredondo MD CHEMISTRY ORDERABLES Performing Organization Address [facility] Co de Phone Number [facility] [address] [place] [phone] * (ABNORMAL) Basic Metabolic Panel (non-fasting) (10/02/2022 11:51 AM EST) [facility] Glucose 146 65 - 199 mg/dL [facility] Comment:Diabetes: >=200 mg/d L plus symptoms Blood Urea Nitrogen 23(H) 10 - 20 mg/dL [facility] Creatinine 0.82 0.80 - 1.50 mg/dL [facility] Sodium 140 135 - 145 mmol/L [facility] Potassium 4.3 3.5 - 5.0 mmol/L [facility] Comment: Please note: ??Patients with WBC >100,000 may have falsely elevated Potassium levels. ??For accurate Potassium quantification in these patients send serum separator tube (gold top) for subsequent determinations. ??Contact the Clinical Chemistry Laboratory if there are any questions. Chloride 103 98 - 107 mmol/L [facility] Carbon Dioxide 26 22 - 31 mmol/L [facility] Anion Gap 11 5 - 15 mmol/L [facility] Calcium 9.6 8.5 - 10.5 mg/dL [facility] Est Glomerular Filtration Rate 93 >=60 mL/min/1.7 3 m?? [facility] Comment: This patient's estimated GFR [...] In Lab Ryder Arredondo MD CHEMISTRY ORDERABLES [facility] [address] [place] [address] * EKG 12 Lead (10/02/2022 11:09 AM EST) Ventricular rate 61 BPM MUSE SYSTEM Atrial Rate 61 BPM MUSE SYSTEM P-R Interval 178 ms MUSE SYSTEM QRS Duration 86 ms MUSE SYSTEM Q-T Interval 436 ms MUSE SYSTEM QTC Calculated (Bezet) 438 ms MUSE SYSTEM Calculated P [place] 102 degrees MUSE SYSTEM Calculated R [place] -49 degrees MUSE SYSTEM Calculated T [place] 7 degrees MUSE SYSTEM INTERPRETATION Normal sinus rhythm Left axis deviation Possible Inferior infarct (cited on or before 10-JAN-2022) Abnormal ECG No significant change was found I personally reviewed the tracing and edited the fellows interpretation Confirmed by fellow MD Francia, [place] ([id number]) on 10/02/2022 4:18:58 PM Confirmed by MD ALBINO, NABILA ([id number]) on 10/02/2022 8:59:03 PM MUSE SYSTEM 10/02/2022 11:0 9 AM EST 10/02/2022 8:59 PM EST Ryder Arredondo MD ECG ORDERABLES MUSE SYSTEM documented in this encounter Visit Diagnoses Diagnosis Persistent atrial fibrillation Atrial fibrillation Dilated cardiomyopathy Other primary cardiomyopathies Thrombocytopenia Thrombocytopenia, unspecified oysterman current use of antiarrhythmic drug documented in this encounter Care Teams Corrugator Operator Helper Relationship Specialty Start Date End Date Domenica Atkins APRN PCP - General Family Medicine 11/21/21 documented as of this encounter
--- OUTSIDE RECORDS SUMMARY | 2024-07-10 10:30 | XMS_ITS | Encounter Summary ---
[place] [address] Care Team Providers Care Bottling Machine Operator Name Role Phone Domenica Atkins APRN Primary Care Provider [phone] Reason for Visit * Reason Onset Date Comments Pre Procedure Call 08/24/2022 Encounter Details Date Type Department Care Team (Late st Contact Info) Description 08/24/2022 Telephone Cardiology at [address] [address] Damaris Bowen, RN Pre Procedure [...] living facility?: No Special Considerations/Notes: Understands that local company flatbed truck driver is needed to transport them upon discharge (anticipated date of discharge -08/30) documented in this encounter Plan of Treatment Upcoming Encounters Date Type Department Care Team (Late st Contact Info) Description 12/23/2024 3:30 PM EDT Office Visit Cardiology at [address] [place] [address] Carlos Eduardo Quan, [facility] [place] [address] documented as of this encounter Visit Diagnoses Not on filedocumented in this encounter Care Teams Bottling Machine Operator Relationship Specialty Start Date End Date Domenica Atkins APRN PCP - General Family Medicine 11/21/21 documented as of this encounter
--- OUTSIDE RECORDS SUMMARY | 2024-07-10 10:30 | XMS_ITS | Encounter Summary ---
[place] [address] Care Team Providers Care Rhinologist Name Role Phone Milly Domenica Padgett APRN Primary Care Provider [phone] Encounter Details Date Type Department Care Team (Late st Contact Info) Description 09/20/2022 Telephone Cardiology at [address] [phone] Génesis Giordano, RN Social History Tobacco Use [...] $30 a month through a program at [facility] as he does not have [...] prescription for generic pradaxa sent to [facility] in [place], [place]. Génesis Giordano RN Cardiology Clinic at [facility] [phone] documented in this encounter Plan of Treatment Upcoming Encounters Date Type Department Care Team (Late st Contact Info) Description 12/23/2024 3:30 PM EDT Office Visit Cardiology at [address] [address] Carlos Eduardo Quan PA [facility] [place] [address] documented as of this encounter Visit Diagnoses Not on filedocumented in this encounter Care Teams Rhinologist Relationship Specialty Start Date End Date Domenica Atkins APRN PCP - General Family Medicine 11/21/21 documented as of this encounter
--- OUTSIDE RECORDS SUMMARY | 2024-07-10 10:30 | XMS_ITS | Encounter Summary ---
Author Organization [facility] Address [facility] Chantal [facility] [place] [address] Care Team Providers Care Dog Breeder Name Role Phone Milly Domenica Padgett APRN Primary Care Provider [phone] Encounter Details Date Type Department Care Team [...] place to sleep or slept in a jail (including now)? No 03/23/2022 Sex and Gender Information Value Date Recorded Sex Assigned at Not on file Gender Identity Not on file Sexual Orientation Not on file documented as of this encounter Plan of Treatment Upcoming Encounters Date Type Department Care Team (Late st Contact Info) Description 12/23/2024 3:30 PM EDT Office Visit Cardiology at [address] [place] [address] Carlos Eduardo Quan PA [facility] [address] documented as of this encounter Visit Diagnoses Not on filedocumented in this encounter Care Teams Dog Breeder Relationship Specialty Start Date End Date Domenica Atkins APRN PCP - General Family Medicine 11/21/21 documented as of this encounter
--- OUTSIDE RECORDS SUMMARY | 2024-07-10 10:30 | XMS_ITS | Encounter Summary ---
Author Organization [facility] [place] [address] Care Team Providers Care Pharmaceutical Development Technician Name Role Phone RayDomenica tate Dayron AGUILAR Primary Care Provider [phone] Reason for Visit * Auth/Cert (Routine) Specialty Diagnoses / Procedures Referred By Valeria t Referred To Contact Diagnoses Persistent atrial fibrillation PERSISTENT AFIB Michael Barrios MD [facility] [address] [facility] Referral ID Status Reason Start Date Expiration Date Visits Re quested Visits Authorized [id number] 1 1 Encounter Details Date Type Department Care Team (Latest Contact Info) Description 08/28/2022 1:24 PM EST - 08/29/2022 4:02 PM EST Hospital Encounter Inter[place] [address] Michael Barrios MD [facility] [place] [address] Persistent atrial fibrillation Discharge Disposition: Home Social [...] Wilber Shell Patient Age: 72 y.o. Language: Sami Race: White Ethnicity: Not nor Admit date: [...] will be scheduled with Dr. Arredondo in [place]. Inpatient Provider Contact Information: Cardiac Electrophysiology [phone], option #3 Discharge Diagnoses (Hospital Problems) and [...] thereafter)with follow up by Dr. Arredondo in [place]. Vital Signs at Discharge: BP: 123/83, Heart [...] gauge x 1/2 Ndle 31 g by [facility].(Non-Drug; Combo Route) route daily. 31Gx1/4 31 g [...] Dr. Arredondo in about a month in [place]. Many of these medicines are sensitive to changes electrolytes in the body(such as potassium, sodium, etc). Therefore it is recommended that blood work be obtained every six months to check electrolytes and kidney function. A 12 lead EKG is also recommended everysix months. These can be checked by your primary health provider or slag mixer if they are agreeable or by the [facility] Electrophysiology group. It is important that while [...] 11:35 AM Gerda Acosta MD Cardiology at [facility] [place] Arrive at: [facility] [phone] 09/12/2022 2:40 PM Curtis Arredondo MD Cardiology at [place] Arrive at: [facility] [address] [phone] 10/02/2022 11:00 AM Crutis Arredondo MD Cardiology at [facility] [place] Arrive at: [place] [phone] 11/07/2022 1:40 PM Curtis Arredondo MD Cardiology at [place] Arrive at: [facility] [address] [phone] Discharge References/Attachments None documented in this encounter [...] Dr. Arredondo in about a month in [place]. Many of these medicines are sensitive to changes electrolytes in the body(such as potassium, sodium, etc). Therefore it is recommended that blood work be obtained every six months to check electrolytes and kidney function. A 12 lead EKG is also recommended everysix months. These can be checked by your primary health provider or slag mixer if they are agreeable or by the [facility] Electrophysiology group. It is important that while [...] gauge x 1/2 Needle 31 g by [facility].(Non-Drug; Combo Route) route daily. 31Gx1/4 metoprolol succinate [...] with follow up by Dr. Arredondo in [place]. Review of Systems Constitutional: Positive for fatigue. [...] will be scheduled with Dr. Arredondo in [place]. Provider: ALISON Wagoner EP Consult attending physician: Gwen Barrios MD EP Consult positional pager #[phone](EPMD) EP Device interrogation positional pager # [phone] Associated attestation - Michael Barrios MD - [...] towards catheter ablation. Michael Barrios MD, PhD, [facility] Cardiac Electrophysiology * Ronak Borrego RN - [...] y.o. Hospital Admit Date: 08/28/2022 Inpatient Attending: Michale Barrios MD PCP: Domenica Atkins APRN Presenting Diagnosis/Chief Complaint: Persistent atrial fibrillation; planned initiation of AAD dofetilide Active Problem List: Active Hospital Problems Diagnosis ??? Persistent atrial fibrillation Resolved Hospital Problems No resolved problems to display. HPI 72yo man with PAF, now persistent, patient of Dr. Arredondo, admitted for dofetilide initiation. He underwent DC cardioversion at [place] on July 19, 2022 with ERAF within [...] gauge x 1/2 Needle 31 g by [facility].(Non-Drug; Combo Route) route daily. 31Gx1/4 lactobacillus rhamnosus, [...] Barrios MD, PhD EP Consult positional pager #[phone](EPNJ) EP Device interrogation positional pager # [phone] Associated attestation - Michael Barrios MD - 08/29/2022 8:16 AM EST Cardiac Electrophysiology Attending Addendum: The patient was seen, interviewed and examined by me, and Brandon Mohr''s note above was reviewedby me and agreed with. Plan to begin dofetilide at 500 mcg po q12.w/ routine telemetry and ECGs forQTc monitoring. Michael Barrios MD, PhD, [facility] Cardiac Electrophysiology documented in this encounter Miscellaneous Notes * Consult Note - Estrellita Mcgraw APRN - 08/28/2022 2:35 PM EST Diabetes Management Team Inpatient Consult Date of Consultation: 08/28/2022 Consult Requested by: Cardiology Electrophysiology Reason for Consultation: Wilber Shell is a 72 y.o. male with PMH significant for T2DM who wasadmitted on 08/28/2022 currently being treated for A. We are being consulted to assist with diabetes management and to provide a review of exterminator helper diabetes care. Diabetes History: Wilber Shell has [...] recommendations pending based on the hospital course, assisted diabetes care: Medications - Outpatient treatment regimen recommendations pending based on the hospital course. Monitoring - continue BG tid ac & hs Diet - low fat/low carb diet Exercise - weight-bearing exercise 30 min/day, as tolerated Thank you for allowing us to provide care for your patient Estrellita Mcgraw APRN [facility] [place] Endocrinology Diabetes Management Pager [phone] minutes of this 80 minute visit [...] PM EDT Office Visit Cardiology at [address] [place] [phone] Carlos Eduardo Quan PA [facility] [place] [address] documented as of this encounter Procedures Procedure [...] Glucose, POC 241(H) 65 - 199 mg/dL [facility] Comment: Supplemental ranges: <140 mg/dL before meals <180 mg/dL all other times of the day Blood 08/29/2022 2:51 PM EST 08/29/2022 2:51 PM EST Michael Barrios MD POINT OF CARE TEST O RDERABLES Performing Organization Address City/State/[facility] Co de Phone Number [facility] [place] [address] * EKG 12 Lead (08/29/2022 1:57 PM EST) Ventricular rate 92 BPM MUSE SYSTEM Atrial Rate 92 BPM MUSE SYSTEM P-R Interval 258 ms MUSE SYSTEM QRS Duration 86 ms MUSE SYSTEM Q-T Interval 390 ms MUSE SYSTEM QTC Calculated (Bezet) 482 ms MUSE SYSTEM Calculated P [place] 69 degrees MUSE SYSTEM Calculated R [place] -33 degrees MUSE SYSTEM Calculated T [place] -9 degrees MUSE SYSTEM INTERPRETATION Sinus rhythm [...] Glucose, POC 245(H) 65 - 199 mg/dL [facility] Comment: Supplemental ranges: <140 mg/dL before meals <180 mg/dL all other times of the day Blood 08/29/2022 12:1 3 PM EST 08/29/2022 12:13 PM EST Michael Barrios MD POINT OF CARE TEST O RDERABLES Performing Organization Address City/[facility] Co de Phone Number [facility] [place] [address] * EKG 12 Lead (08/29/2022 10:16 AM EST) Ventricular rate 73 BPM MUSE SYSTEM Atrial Rate 91 BPM MUSE SYSTEM QRS Duration 88 ms MUSE SYSTEM Q-T Interval 412 ms MUSE SYSTEM QTC Calculated (Bezet) 453 ms MUSE SYSTEM Calculated P [place] 82 degrees MUSE SYSTEM Calculated R [place] -47 degrees MUSE SYSTEM Calculated T [place] -21 degrees MUSE SYSTEM INTERPRETATION Atrial tachycardia with variable A-V block Left axis deviation Inferior infarct (cited on or before 10-JAN-2022) Abnormal ECG When compared with ECG of 29-AUG-2022 08:32, Variable AV block is now present QT has shortened Confirmed by MD Chris Danette ([id number]) on 08/29/2022 3:53:59 PM MUSE SYSTEM 08/29/2022 10:1 6 AM EST 08/29/2022 3:53 PM EST Michael Barrios MD ECG ORDERABLES Performing Organization Address City/[facility]/ZIP Co de Phone Number MUSE SYSTEM * EKG 12 Lead (08/29/2022 8:32 AM EST) Ventricular rate 94 BPM MUSE SYSTEM Atrial Rate 94 BPM MUSE SYSTEM P-R Interval 212 ms MUSE SYSTEM QRS Duration 86 ms MUSE SYSTEM Q-T Interval 410 ms MUSE SYSTEM QTC Calculated (Bezet) 512 ms MUSE SYSTEM Calculated P [place] 64 degrees MUSE SYSTEM Calculated R [place] -51 degrees MUSE SYSTEM Calculated T [place] 2 degrees MUSE SYSTEM INTERPRETATION Sinus rhythm with 1st degree A-V block Left axis deviation Inferior infarct (cited on or before 10-JAN-2022) Prolonged QT Abnormal ECG When compared with ECG of 29-AUG-2022 04:00, Sinus rhythm has replaced Atrial fibrillation Confirmed by MD Chris Danette ([id number]) on 08/29/2022 3:50:42 PM MUSE SYSTEM 08/29/2022 8:32 AM EST 08/29/2022 3:50 PM EST Michael Barrios MD ECG ORDERABLES MUSE SYSTEM * POCT Glucose (08/29/2022 7:56 AM EST) Glucose, POC 176 65 - 199 mg/dL [facility] Comment: Supplemental ranges: <140 mg/dL before meals <180 mg/dL all other times of the day Blood 08/29/2022 7:56 AM EST 08/29/2022 7:56 AM EST Michael Barrios MD POINT OF CARE TEST O RDERABLES Performing Organization Address City/[facility]/ZIP Co de Phone Number [facility] [place] [address] * EKG 12 Lead (08/29/2022 4:00 AM EST) Ventricular rate 88 BPM MUSE SYSTEM Atrial Rate 37 BPM MUSE SYSTEM QRS Duration 92 ms MUSE SYSTEM Q-T Interval 448 ms MUSE SYSTEM QTC Calculated (Bezet) 542 ms MUSE SYSTEM Calculated R [place] -12 degrees MUSE SYSTEM Calculated T [place] 2 degrees MUSE SYSTEM INTERPRETATION Atrial fibrillation with premature ventricular or aberrantly conducted complexes Possible Inferior infarct (cited on or before 10-JAN-2022) Prolonged QTc Abnormal ECG When compared with ECG of 28-AUG-2022 17:02, Aberrant conduction is now present QT has lengthened Confirmed by MD Chris Danette ([id number]) on 08/29/2022 3:49:56 PM MUSE SYSTEM 08/29/2022 4:00 AM EST 08/29/2022 3:49 PM EST Michael Barrios MD ECG ORDERABLES MUSE SYSTEM * (ABNORMAL) POCT Glucose (08/29/2022 12:09 AM EST) Glucose, POC 208(H) 65 - 199 mg/dL [facility] Comment: Supplemental ranges: <140 mg/dL before meals <180 mg/dL all other times of the day Blood 08/29/2022 12:0 9 AM EST 08/29/2022 12:09 AM EST Michael Barrios MD POINT OF CARE TEST O RDERABLES Performing Organization Address [facility] Co de Phone Number [facility] [place] [address] * (ABNORMAL) POCT Glucose (08/28/2022 7:57 PM EST) Glucose, POC 268(H) 65 - 199 mg/dL [facility] Comment: Supplemental ranges: <140 mg/dL before meals <180 mg/dL all other times of the day Blood 08/28/2022 7:57 PM EST 08/28/2022 7:57 PM EST Michael Barrios MD POINT OF CARE TEST O RDERAJESSIE Performing Organization Address City/[facility]/ZIP Co de Phone Number [facility] [place] [address] * EKG 12 Lead (08/28/2022 5:02 PM EST) Ventricular rate 62 BPM MUSE SYSTEM QRS Duration 86 ms MUSE SYSTEM Q-T Interval 422 ms MUSE SYSTEM QTC Calculated (Bezet) 428 ms MUSE SYSTEM Calculated R [place] -31 degrees MUSE SYSTEM Calculated T [place] -17 degrees MUSE SYSTEM INTERPRETATION Atrial fibrillation Left axis deviation Inferior infarct (cited on or before 10-JAN-2022) Abnormal ECG When compared with ECG of 28-AUG-2022 11:18, (unconfirmed) No significant change was found Confirmed by MD Chris Danette ([id number]) on 08/29/2022 3:47:15 PM MUSE SYSTEM 08/28/2022 5:02 PM EST 08/29/2022 3:47 PM EST Michael Barrios MD ECG ORDERABLES MUSE SYSTEM * (ABNORMAL) Hemoglobin A1c (08/28/2022 4:52 PM EST) Hemoglobin A1c 8.2(H) 4.3 - 5.6 % [facility] Comment: Reference Range: 4.3 - 5.6% [...] Mellitus, Diabetes Care 2013; 36: Suppl. 1, W17-46 Estimated Average Glucose See note mg/dL [facility] Comment: Estimated Average Glucose not appropriate [...] into estimated average glucose values. ??Diabetes Care 2008:31(8):3428-4872. Blood 08/28/2022 4:52 PM EST 08/28/2022 5:15 PM EST Narrative Resulting Agency Comment Spec In Lab Michael Barrios MD CHEMISTRY ORDERABLES Performing Organization Address City/[facility]/ZIP Co de Phone Number [facility] [place] [address] * (ABNORMAL) POCT Glucose (08/28/2022 4:13 PM EST) Glucose, POC 287(H) 65 - 199 mg/dL [facility] Comment: Supplemental ranges: <140 mg/dL before meals <180 mg/dL all other times of the day Blood 08/28/2022 4:13 PM EST 08/28/2022 4:13 PM EST Michael Barrios MD POINT OF CARE TEST O RDERABLES Performing Organization Address City/[facility]/ZIP Co de Phone Number [facility] [place] [address] documented in this encounter Visit Diagnoses Diagnosis [...] nefazodone, norfloxacin, quiNINE, zafrilukast (inhibitors of cytochrome [id number]) may increase dofetilide levels; consider decreasing the [...] nefazodone, norfloxacin, quiNINE, zafrilukast (inhibitors of cytochrome [id number]) may increase dofetilide levels; consider decreasing the [...] Routine documented in this encounter Care Teams Pharmaceutical Development Technician Relationship Specialty Start Date End Date Domenica Atkins APRN PCP - General Family Medicine 11/21/21 documented as of this encounter
--- OUTSIDE RECORDS SUMMARY | 2024-07-10 10:30 | XMS_ITS | Encounter Summary ---
Author Organization [facility] [place] [address] Care Team Providers Care Life Underwriter Name Role Phone Milly Domenica Padgett APRN Primary Care Provider [phone] Reason for Visit * Auth/Cert (Routine) Specialty Diagnoses / Procedures Referred By Valeria t Referred To Contact Diagnoses Persistent atrial fibrillation PERSISTENT AFIB Michael Barrios MD [facility] [place] [address] [facility] Referral ID Status Reason Start Date Expiration Date Visits Re quested Visits Authorized [id number] 1 1 Encounter Details Date Type Department Care Team (Latest Contact Info) Description 08/28/2022 10:25 AM EST Laboratory Appointment Lab [address] [place] [address] Persistent atrial fibrillation Social History Tobacco Use [...] 3:30 PM EDT Office Visit Cardiology at [address] [address] Carlos Eduardo Quan PA [facility] [place] [address] documented as of this encounter Procedures Procedure Name Priority Date/Time Associated Diagnosis Comments HC MAGNESIUM, SERUM STAT 08/28/2022 10:37 AM EST Persistent atrial fibrillation BASIC METABOLIC PANEL STAT 08/28/2022 10:37 AM EST Persistent atrial fibrillation documented in this encounter Results * (ABNORMAL) Basic Metabolic Panel (non-fasting) (08/28/2022 10:37 AM EST) Glucose 274(H) 65 - 199 mg/dL [facility] Comment:Diabetes: >=200 mg/d L plus symptoms Blood Urea Nitrogen 19 10 - 20 mg/dL [facility] Creatinine 1.03 0.80 - 1.50 mg/dL [facility] Sodium 140 135 - 145 mmol/L [facility] Potassium 5.2(H) 3.5 - 5.0 mmol/L [facility] Comment: Please note: ??Patients with WBC >100,000 may have falsely elevated Potassium levels. ??For accurate Potassium quantification in these patients send serum separator tube (gold top) for subsequent determinations. ??Contact the Clinical Chemistry Laboratory if there are any questions. Chloride 104 98 - 107 mmol/L [facility] Carbon Dioxide 28 22 - 31 mmol/L [facility] Anion Gap 8 5 - 15 mmol/L [facility] Calcium 9.9 8.5 - 10.5 mg/dL [facility] Est Glomerular Filtration Rate 77 >=60 mL/min/1. 73 m?? [facility] Comment: This patient's estimated [...] In Lab Connor Charles MD CHEMISTRY ORDERABLES [facility] [place] [address] * Magnesium (08/28/2022 10:37 AM EST) Magnesium 0.84 0.69 - 1.07 mmol/L [facility] Blood 08/28/2022 10:3 7 AM EST 08/28/2022 10:50 AM EST Narrative Resulting Agency Comment Spec In Lab Connor Charles MD CHEMISTRY ORDERABLES [facility] [place] [address] documented in this encounter Visit Diagnoses Diagnosis Persistent atrial fibrillation Atrial fibrillation documented in this encounter Care Teams Life Underwriter Relationship Specialty Start Date End Date Domenica Atkins APRN PCP - General Family Medicine 11/21/21 documented as of this encounter
--- OUTSIDE RECORDS SUMMARY | 2024-07-10 10:30 | XMS_ITS | Encounter Summary ---
Author Organization [facility] Address [facility] [place] [address] Care Team Providers Care Division Traffic Superintendent Name Role Phone Milly Domenica Padgett APRN Primary Care Provider [phone] Encounter Details Date Type Department Care Team [...] PM EDT Office Visit Cardiology at [address] [place] [address] Carlos Eduardo Quan PA [facility] [place] [address] documented as of this encounter Visit Diagnoses Not on filedocumented in this encounter Care Teams Division Traffic Superintendent Relationship Specialty Start Date End Date Domenica Atkins APRN PCP - General Family Medicine 11/21/21 documented as of this encounter
--- OUTSIDE RECORDS SUMMARY | 2024-07-10 10:30 | XMS_ITS | Encounter Summary ---
Author Organization [facility] [place] [address] Care Team Providers Care Upper Leather Sorter Name Role Phone Domenica Atkins LAUREN Primary Care Provider [phone] Reason for Visit * Reason Comments Atrial Fibrillation Afib/aflutter- s/p a blation Congestive Heart Failure HFrEF Idiopathic Thrombocytopenic Pupura * Consultation (Urgent) - Closed Specialty Diagnoses / Procedures Referred By Contact Referred To Contact Electrophysiology / Cardiology Diagnoses Atrial fibrillation, unspecified type Atrial flutter, unspecified type afib, aflutter Evan Guzman MD [address] [place] [address] [place] [address] [facility] Cardiology [address] [place] [phone] Referral ID Status Reason Start Date Expiration Date V isits Requested Visits Authorized [id number] Closed Consult, Test & Treat 11/21/2021 11/21/2022 6 6 Encounter Details Date Type Department Care Team (Late st Contact Info) Description 07/11/2022 1:40 PM EST Office Visit Cardiology at [address] [address] Ryder Arredondo MD [facility] [place] [address] Persistent atrial fibrillation Social History [...] Follow Up Patient ID Wilber Shell 1950 [id number] Wilber Shell is following up in EP [...] follow up at the [place] clinic in [place],he was in AF/RVR - plans were made [...] gauge x 1/2 Needle 31 g [place] [facility]Non-Drug; Combo Route) route daily. [...] procedural period RYDER ARREDONDO MD Cardiac Electrophysiology [facility] Call T: [phone] F: [phone] 30 minutes of this 40 minute encounter [...] 3:30 PM EDT Office Visit Cardiology at [address] [place] [phone] Carlos Eduardo Quan PA [facility] [place] [address] documented as of this encounter Visit Diagnoses Diagnosis Persistent atrial fibrillation Atrial fibrillation documented in this encounter Care Teams Upper Leather Sorter Relationship Specialty Start Date End Date Domenica Atkins APRN PCP - General Family Medicine 11/21/21 documented as of this encounter
--- OUTSIDE RECORDS SUMMARY | 2024-07-10 10:30 | XMS_ITS | Encounter Summary ---
Author Organization [facility] Address [facility] [address] Care Team Providers Care Plant Tender Name Role Phone Domenica Atkins APRN Primary Care Provider [phone] Encounter Details Date Type Department Care Team (Late st Contact Info) Description 04/27/2022 2:30 PM EDT Office Visit Hematology [place] [phone] Porfirio Musa MD [facility] DR HEMATOLOGY/[place] [address] Leah Ricardo APRN [facility] [place] [address] Josh Medina MD [facility] DR HEMATOLOGY/[place] [address] Drug-induced ITP (Primary Dx) Social History Tobacco [...] reviewed my impression and recommendations with Wilber Shlel and answered all the questions.. Pt was [...] discussed with Dr. Musa. Josh Medina MD [facility] Hematology Oncology Fellow Page [phone] HEMATOLOGY/BMT STAFF PROGRESS NOTE I interviewed, examined [...] likely. Porfirio Musa MD Section of Hematology [facility] CC: LAUREN Hamilton [place] documented in this encounter Plan of Treatment Upcoming Encounters Date Type Department Care Team (Late st Contact Info) Description 12/23/2024 3:30 PM EDT Office Visit Cardiology at [address] [phone] Carlos Eduardo Quan, ALISON [facility] [place] [address] documented as of this encounter Results * CRP, acute inflammation (04/27/2022 1:52 PM EDT) C-Reactive Protein 3.9 <=4.9 mg/L [facility] Blood 04/27/2022 1:52 PM EDT 04/27/2022 1:55 PM EDT Narrative Resulting Agency Comment Spec In Lab Porfirio Musa MD CHEMISTRY ORDERA BLES Performing Organization Address City/[facility]/ZIP Co de Phone Number [facility] [place] [address] * Sedimentation rate (04/27/2022 1:52 PM EDT) Sedimentation Rate Automated 14 3 - 46 mm/hr [facility] Comment: Effective August 12, 2019 new capillary photometric technology has resulted in a change in reference ranges. It is recommended that each ESR result be reviewed with its own age appropriate reference range. Blood 04/27/2022 1:52 PM EDT 04/27/2022 1:56 PM EDT Narrative Resulting Agency Comment Spec In Lab Porfirio Musa MD HEMATOLOGY ORDER PRESTON Performing Organization Address [facility] Co de Phone Number [facility] [place] [address] * Folate, serum (04/27/2022 1:52 PM EDT) Folate >20.0 4.8 - 24.2 ng/mL [facility] Blood 04/27/2022 1:52 PM EDT 04/27/2022 1:56 PM EDT Narrative Resulting Agency Comment Spec In Lab Porfirio Musa MD CHEMISTRY ORDERA BLES Performing Organization Address City/[facility]/ZIP Co de Phone Number [facility] [place] [address] * Vitamin B12 (04/27/2022 1:52 PM EDT) Vitamin B12 469 232 - 1,245 pg/mL [facility] Blood 04/27/2022 1:52 PM EDT 04/27/2022 1:56 PM EDT Narrative Resulting Agency Comment Spec In Lab Porfirio Musa MD CHEMISTRY ORDERA BLES Performing Organization Address City/[facility]/ZIP Co de Phone Number [facility] [place] [address] * (ABNORMAL) Comprehensive metabolic panel (non-fasting) (04/27/2022 1:52 PM EDT) Glucose 201(H) 65 - 199 mg/dL [facility] Comment:Diabetes: >=200 mg/d L plus symptoms Blood Urea Nitrogen 18 10 - 20 mg/dL [facility] Creatinine 0.85 0.80 - 1.50 mg/dL [facility] Sodium 141 135 - 145 mmol/L [facility] [...] mmol/L [facility] Anion Gap 13 5 - 15 mmol/L [facility] Calcium 9.3 8.5 - 10.5 mg/dL [facility] Protein, Total 6.7 6.1 - 8.0 g/dL [facility] Albumin 4.3 3.2 - 5.2 g/dL [facility] Aspartate Aminotransferase 16 0 - 39 unit/L [facility] Alanine Aminotransferase 17 0 - 55 unit/L [facility] Alkaline Phosphatase 64 40 - 130 unit/L [facility] Bilirubin, Total 1.0 0.2 - 1.3 mg/dL [facility] Est Glomerular Filtration Rate 92 >=60 mL/min/1. 73 m?? [facility] [...] CHEMISTRY ORDERA BLES [facility] [place] [place] [address] documented in this encounter Visit Diagnoses Diagnosis Drug-induced ITP- Primary Other secondary thrombocytopenia documented in this encounter Care Teams Plant Tender Relationship Specialty Start Date End Date Domenica Atkins APRN PCP - General Family Medicine 11/21/21 documented as of this encounter
--- OUTSIDE RECORDS SUMMARY | 2024-07-10 10:30 | XMS_ITS | Encounter Summary ---
[place] [address] Care Team Providers Care Loan Administrator Name Role Phone Milly Domenica Padgett APRN Primary Care Provider [phone] Encounter Details Date Type Department Care Team (Latest Contact Info) Description 04/27/2022 1:30 PM EDT - 04/27/2022 11:59 PM EDT Hospital Encounter [place] [phone] Drug-induced ITP Discharge Disposition: Home Social History [...] place to sleep or slept in a nursing home (including now)? No 03/23/2022 Sex and Gender Information Value Date Recorded Sex Assigned at Not on file Gender Identity Not on file Sexual Orientation Not on file documented as of this encounter Medications at Time of Discharge Medication Sig Dispensed Refills Start Date End Date insulin needles, disposable, 29 gauge x 1/2 Needle 31 g by [facility].(Non-Drug; Combo Route) route daily. 31Gx1/4 [...] PM EDT Office Visit Cardiology at [address] [place] [address] Carlos Eduardo Quan, ALISON [facility] [place] [address] documented as of this encounter Procedures Procedure [...] 1:52 PM EDT) Neutrophil % 66.5 % [facility] Neutrophil Absolute 7.04(H) 1.70 - 6.10 x10(3)/[facility] Lymph % 20.2 % [facility] Lymphocytes Abs 2.1 0.9 - 3.2 x10(3)/[facility] Monocyte % 9.5 % [facility] Monocyte Abs 1.0(H) 0.3 - 0.9 x10(3)/[facility] Eos % 2.5 % [facility] Eosinophils Abs 0.3 0.0 - 0.4 x10(3)/[facility] Basophil % 0.8 % [facility] Baso Absolute 0.1 0.0 - 0.1 x10(3)/ L [facility] Immature Gran % 0.50 % [facility] Comment: Immature granulocytes(IG's)percentage and absolute count will include metamyelocytes, myelocytes, and promyelocytes. Blood smears from CBCs yielding IG's will be scanned manually for concordance. If this scan disagrees with the automated IG or if promyelocytes are noted, a manual differential will be performed. Immature Gran Absolute 0.05(H) 0.00 - 0.04 x10(3)/ L [facility] Blood 04/27/2022 1:52 PM EDT 04/27/2022 1:56 PM EDT Narrative Resulting Agency Comment Spec In Lab Porfirio Musa MD HEMATOLOGY ORDER PRESTON [facility] [place] [address] * (ABNORMAL) Hemogram (04/27/2022 1:52 PM EDT) White Blood Cell 10.6(H) 4.0 - 9.5 x10(3)/mc L [facility] Red Blood Cell 4.56(L) 4.58 - 5.54 x10(6)/mc L [facility] Hemoglobin 13.9 13.7 - 16.5 g/dL [facility] Hematocrit 42.0 40.5 - 48.5 % [facility] Mean Cell Volume 92.1 82.9 - 93.1 fL [facility] Mean Cell Hemoglobin 30.5 27.5 - 32.1 pg [facility] Mean Cell Hemoglobin Concentration 33.1 32.0 - 35.7 g/dL [facility] Platelet 184 145 - 357 x10(3)/mc L [facility] RDW Standard Deviation 50.1(H) 36.0 - 45.0 fL [facility] RDW coefficient of variation 14.8(H) 11.4 - 13.8 % [facility] Mean Platelet Volume 11.0 7.6 - 12.9 fL [facility] NRBC% auto 0.0 % [facility] NRBC Absolute 0.000 0.000 - 0.000 x10(3)/mc L [facility] Blood 04/27/2022 1:52 PM EDT 04/27/2022 1:56 PM EDT Narrative Resulting Agency Comment Spec In Lab Porfirio uMsa MD HEMATOLOGY ORDER PRESTON Performing Organization Address City/[facility]/ZIP Co de Phone Number [facility] [place] [address] * Sedimentation rate (04/27/2022 1:52 PM EDT) [...] Lab Porfirio Musa MD HEMATOLOGY ORDER PRESTON [facility] [place] [address] * CRP, acute inflammation (04/27/2022 1:52 PM EDT) [facility] C-Reactive Protein 3.9 <=4.9 mg/L [facility] Blood 04/27/2022 1:52 PM EDT 04/27/2022 1:55 PM EDT Narrative Resulting Agency Comment Spec In Lab Porfirio Musa MD CHEMISTRY ORDERA BLES Performing Organization Address City/[facility]/ZIP Co de Phone Number [facility] [place] [address] * Folate, serum (04/27/2022 1:52 PM EDT) [facility] Folate >20.0 4.8 - 24.2 ng/mL [facility] Blood 04/27/2022 1:52 PM EDT 04/27/2022 1:56 PM EDT Narrative Resulting Agency Comment Spec In Lab Porfirio Musa MD CHEMISTRY ORDERA BLES Performing Organization Address City/[facility]/ZIP Co de Phone Number [facility] [place] [address] * Vitamin B12 (04/27/2022 1:52 PM EDT) [facility] Vitamin B12 469 232 - 1,245 pg/mL [facility] Blood 04/27/2022 1:52 PM EDT 04/27/2022 1:56 PM EDT Narrative Resulting Agency Comment Spec In Lab Porfirio Musa MD CHEMISTRY ORDERA BLES [facility] [place] [address] * (ABNORMAL) Comprehensive metabolic panel (non-fasting) (04/27/2022 [...] In Lab Porfirio Musa MD CHEMISTRY ORDERA [facility] Organization Address City/State/[facility] [[email or web address]] Co de Phone Number [facility] [place] [phone] documented in this encounter Visit Diagnoses Diagnosis Drug-induced ITP Other secondary thrombocytopenia documented in this encounter Care Teams Loan Administrator Relationship Specialty Start Date End Date Domenica Atkins APRN PCP - General Family Medicine 11/21/21 documented as of this encounter
--- OUTSIDE RECORDS SUMMARY | 2024-07-10 10:30 | XMS_ITS | Encounter Summary ---
[place] [address] Care Team Providers Care Platform Supervisor Name Role Phone Milly Domenica Padgett APRN Primary Care Provider [phone] Encounter Details Date Type Department Care Team (Late st Contact Info) Description 10/15/2022 Telephone Cardiology at [address] [phone] Domenica Nicole RN Social History Tobacco Use [...] 3:30 PM EDT Office Visit Cardiology at [address] [address] Carlos Eduardo Quan, ALISON [facility] [place] [address] documented as of this encounter Visit Diagnoses Not on filedocumented in this encounter Care Teams Platform Supervisor Relationship Specialty Start Date End Date Domenica Atkins APRN PCP - General Family Medicine 11/21/21 documented as of this encounter
--- OUTSIDE RECORDS SUMMARY | 2024-07-10 10:30 | XMS_ITS | Encounter Summary ---
Author Organization [facility] Address [facility] [place] [address] Care Team Providers Care Hot Metal Mixer Operator Helper Name Role Phone Milly Domenica Padgett APRN Primary Care Provider [phone] Encounter Details Date Type Department Care Team (Latest Contact Info) Description 07/19/2022 10:00 AM EST Ext Surgery or Single Event [facility] [address] [facility] [place] [address] Everett Galvan MD [facility] [place] [address] Persistent atrial fibrillation Social History Tobacco Use [...] Procedure Note Patient Name: Wilber Shell : [id number] Date of Procedure: 07/19/2022 Time of Procedure: [...] PM EDT Office Visit Cardiology at [address] [place] [address] Carlos Eduardo Quan, ALISON [facility] [place] [address] documented as of this encounter Procedures Procedure [...] fibrillation documented in this encounter Care Teams Hot Metal Mixer Operator Helper Relationship Specialty Start Date End Date Domenica Atkins APRN PCP - General Family Medicine 11/21/21 documented as of this encounter
--- OUTSIDE RECORDS SUMMARY | 2024-07-10 10:30 | XMS_ITS | Encounter Summary ---
Author Organization [facility] Address [facility] [place] [address] Care Team Providers Care Telecommunications Cable Jointer Name Role Phone Milly Domenica Padgett APRN Primary Care Provider [phone] Encounter Details Date Type Department Care Team [...] 3:30 PM EDT Office Visit Cardiology at [address] [place] [address] Carlos Eduardo Quan PA [facility] [place] [address] documented as of this encounter Visit Diagnoses Not on filedocumented in this encounter Care Teams Telecommunications Cable Jointer Relationship Specialty Start Date End Date Domenica Atkins APRN PCP - General Family Medicine 11/21/21 documented as of this encounter
--- OUTSIDE RECORDS SUMMARY | 2024-07-10 10:30 | XMS_ITS | Encounter Summary ---
Author Organization [facility] [place] [address] Care Team Providers Care Pcb Designer Name Role Phone Milly Domenica Padgett APRN Primary Care Provider [phone] Encounter Details Date Type Department Care Team (Late st Contact Info) Description 07/11/2022 Telephone Cardiology at [address] [place] [address] Lalita Cisneros RN Social History [...] 3:30 PM EDT Office Visit Cardiology at [address] [place] [address] Carlos Eduardo Quan, ALISON [facility] [place] [address] documented as of this encounter Visit Diagnoses Not on filedocumented in this encounter Care Teams Pcb Designer Relationship Specialty Start Date End Date Domenica Atkins APRN PCP - General Family Medicine 11/21/21 documented as of this encounter
--- OUTSIDE RECORDS SUMMARY | 2024-07-10 10:30 | XMS_ITS | Encounter Summary ---
Author Organization [facility] Address [facility] [place] [address] Care Team Providers Care Veterinary Practitioner Name Role Phone Domenica Atkins APRN Primary Care Provider [phone] Encounter Details Date Type Department Care Team (Late st Contact Info) Description 08/01/2022 Telephone Cardiology at [address] [address] Veronica Centeno APRN [facility] [place] [address] Social History Tobacco Use Types Packs/Day Years [...] Referring Provider: Porfirio Banda PA Patient Location: [facility] Past Medical History: 1. Atrial flutter, s/p ablation of atrial flutter 01/02/2022 2. HFrEF. Echo January 2022 EF 23% with severe global hypokinesis, severe dilated LA, moderate MR and TR.?? 3. Type 2 diabetes mellitus 4. GERD 5. Obstructive sleep apnea, on CPAP 6. Macrocytic anemia 7. Drug-induced ITP 8. Dyslipidemia ?? Presenting Symptoms per OSH: Recent cardioversion at [facility]. Continues on Digoxin and xarelto. Since [...] management. Veronica Centeno APRN Cardiovascular Medicine Pager [phone] 08/01/2022 documented in this encounter Plan of Treatment Upcoming Encounters Date Type Department Care Team (Late st Contact Info) Description 12/23/2024 3:30 PM EDT Office Visit Cardiology at [address] [phone] Carlos Eduardo Quan PA [facility] [place] [address] documented as of this encounter Visit Diagnoses Not on filedocumented in this encounter Care Teams Veterinary Practitioner Relationship Specialty Start Date End Date Domenica Atkins APRN PCP - General Family Medicine 11/21/21 documented as of this encounter
--- OUTSIDE RECORDS SUMMARY | 2024-07-10 10:30 | XMS_ITS | Encounter Summary ---
[place] [address] Care Team Providers Care Food Specialist Name Role Phone Milly Domenica Padgett APRN Primary Care Provider [phone] Encounter Details Date Type Department Care Team (Latest Contact Info) Description 03/23/2022 9:00 AM EDT - 03/23/2022 11:59 PM EDT Hospital Encounter [place]ology [place] [phone] Drug-induced ITP Discharge Disposition: Home Social History [...] 3:30 PM EDT Office Visit Cardiology at [address] [place] [address] Carlos Eduardo Quan, ALISON [facility] [place] [address] documented as of this encounter Procedures Procedure [...] 9:06 AM EDT) Neutrophil % 69.7 % [facility] Neutrophil Absolute 7.51(H) 1.70 - 6.10 x10(3)/mc L [facility] Lymph % 16.1 % [facility] Lymphocytes Abs 1.7 0.9 - 3.2 x10(3)/mc L [facility] Monocyte % 10.8 % [facility] Monocyte Abs 1.2(H) 0.3 - 0.9 x10(3)/mc L [facility] Eos % 1.9 % [facility] Eosinophils Abs 0.2 0.0 - 0.4 x10(3)/ L [facility] Basophil % 0.7 % [facility] Baso Absolute 0.1 0.0 - 0.1 x10(3)/ L [facility] Immature Gran % 0.80 % [facility] Comment: Immature granulocytes(IG's)percentage and absolute count will include metamyelocytes, myelocytes, and promyelocytes. Blood smears from CBCs yielding IG's will be scanned manually for concordance. If this scan disagrees with the automated IG or if promyelocytes are noted, a manual differential will be performed. Immature Gran Absolute 0.09(H) 0.00 - 0.04 x10(3)/[facility] Blood 03/23/2022 9:06 AM EDT 03/23/2022 9:22 AM EDT Narrative Resulting Agency Comment Spec In Lab Malik Garcia MD HEMATOLOGY ORDERABLE S Performing Organization Address City/State/[facility] Co de Phone Number [facility] [place] [address] * (ABNORMAL) Hemogram (03/23/2022 9:06 AM EDT) White Blood Cell 10.8(H) 4.0 - 9.5 x10(3)/ L [facility] Red Blood Cell 4.41(L) 4.58 - 5.54 x10(6)/mc L [facility] Hemoglobin 13.8 13.7 - 16.5 g/dL [facility] Hematocrit 40.8 40.5 - 48.5 % [facility] Mean Cell Volume 92.5 82.9 - 93.1 fL [facility] Mean Cell Hemoglobin 31.3 27.5 - 32.1 pg [facility] Mean Cell Hemoglobin Concentration 33.8 32.0 - 35.7 g/dL [facility] Platelet 95(L) 145 - 357 x10(3)/mc L [facility] RDW Standard Deviation 47.0(H) 36.0 - 45.0 fL [facility] RDW coefficient of variation 13.8 11.4 - 13.8 % [facility] Mean Platelet Volume 11.6 7.6 - 12.9 fL [facility] NRBC% auto 0.0 % [facility] NRBC Absolute 0.000 0.000 - 0.000 x10(3)/mc L [facility] Blood 03/23/2022 9:06 AM EDT 03/23/2022 9:22 AM EDT Narrative Resulting Agency Comment Spec In Lab Malik Garcia MD HEMATOLOGY ORDERABLE S [facility] [place] [address] * Comprehensive metabolic panel (non-fasting) (03/23/2022 9:06 AM EDT) Glucose 172 65 - 199 mg/dL [facility] Comment:Diabetes: >=200 mg/d L plus symptoms Blood Urea Nitrogen 15 10 - 20 mg/dL [facility] Creatinine 0.93 0.80 - 1.50 mg/dL [facility] Sodium 138 135 - 145 mmol/L [facility] Potassium 4.2 3.5 - 5.0 mmol/L [facility] Comment: Please note: ??Patients with WBC >100,000 may have falsely elevated Potassium levels. ??For accurate Potassium quantification in these patients send serum separator tube (gold top) for subsequent determinations. ??Contact the Clinical Chemistry Laboratory if there are any questions. Chloride 102 98 - 107 mmol/L [facility] Carbon Dioxide 27 22 - 31 mmol/L [facility] Anion Gap 9 5 - 15 mmol/L [facility] Calcium 9.2 8.5 - 10.5 mg/dL [facility] Protein, Total 6.9 6.1 - 8.0 g/dL [facility] Albumin 4.1 3.2 - 5.2 g/dL [facility] Aspartate Aminotransferase 20 0 - 39 unit/L [facility] Alanine Aminotransferase 25 0 - 55 unit/L [facility] Alkaline Phosphatase 70 40 - 130 unit/L [facility] Bilirubin, Total 0.7 0.2 - 1.3 mg/dL [facility] Est Glomerular Filtration Rate 87 >=60 mL/min/1. 73 m?? [facility] Comment: This patient's estimated GFR [...] Lab Porfirio Musa MD CHEMISTRY ORDERA BLES [facility] [place] [address] documented in this encounter Visit Diagnoses Diagnosis Drug-induced ITP Other secondary thrombocytopenia documented in this encounter Care Teams Food Specialist Relationship Specialty Start Date End Date Domenica Atkins APRN PCP - General Family Medicine 11/21/21 documented as of this encounter
--- OUTSIDE RECORDS SUMMARY | 2024-07-10 10:30 | XMS_ITS | Encounter Summary ---
Author Organization [facility] [place] [address] Care Team Providers Care Factory Clerk Name Role Phone Domenica Atkins APRN Primary Care Provider [phone] Encounter Details Date Type Department Care Team (Late st Contact Info) Description 08/01/2022 External [place] [address] Social History Tobacco Use Types Packs/Day Years [...] PM EDT Office Visit Cardiology at [address] [address] Carlos Eduardo Quan, ALISON [facility] [place] [address] documented as of this encounter Procedures Procedure Name Priority Date/Time Associated Diagnosis Comments ECG SCAN Routine 08/01/2022 documented in this encounter Results * Scan Doc: ECG (08/01/2022) Historical Provider MD COHEN MGR SCAN EX T ORDR/RSLT documented in this encounter Visit Diagnoses Not on filedocumented in this encounter Care Teams Factory Clerk Relationship Specialty Start Date End Date Domenica Atkisn APRN PCP - General Family Medicine 11/21/21 documented as of this encounter
--- OUTSIDE RECORDS SUMMARY | 2024-07-10 10:30 | XMS_ITS | Encounter Summary ---
Author Organization [facility] Address One [facility]antal [facility] [place] [address] Care Team Providers Care Cash Applications Coordinator Name Role Phone Milly Domenica Padgett APRN Primary Care Provider [phone] Encounter Details Date Type Department Care Team [...] No 03/23/2022 Housing Stability Vital Sign Answer Moom e Recorded In the last 12 months, [...] PM EDT Office Visit Cardiology at [address] [place] [address] Carlos Eduardo Quan PA [facility] [place] [address] documented as of this encounter Visit Diagnoses Not on filedocumented in this encounter Care Teams Cash Applications Coordinator Relationship Specialty Start Date End Date Domenica Atkins APRN PCP - General Family Medicine 11/21/21 documented as of this encounter
--- OUTSIDE RECORDS SUMMARY | 2024-07-10 10:30 | XMS_ITS | Encounter Summary ---
Author Organization [facility] Address [facility] [place] [address] Care Team Providers Care Pipe And Boiler Covers Supervisor Name Role Phone Domenica Atkins APRN Primary Care Provider [phone] Reason for Visit * Consultation (Routine) - Closed Specialty Diagnoses / Procedures Referred By Valeria t Referred To Contact Hematology and Oncology Diagnoses Drug-induced ITP Adeola Johnson MD [facility] [place] [address] [facility] [address] [address] [place] [address] Referral ID Status Reason Start Date Expiration Date V isits Requested Visits Authorized [id number] Closed Consult, Test & Treat 03/11/2022 03/11/2023 1 1 Encounter Details Date Type Department Care Team (Late st Contact Info) Description 03/23/2022 8:30 AM EDT Office Visit [place] [address] Porfirio Musa MD [facility] DR HEMATOLOGY/[place] [address] Angie Banegas APRN [facility] [place] [address] Drug-induced ITP (Primary Dx) Social History Tobacco [...] electronic medical records. Records Review: 01/02/2022 Platelet [id number]. Patient was started on torsemide, amiodarone and [...] seen and discussed with Dr. Musa. Malik Garcia MD [facility] HEMATOLOGY/BMT STAFF PROGRESS NOTE I interviewed, examined [...] likely. Porfirio Musa MD Section of Hematology [facility] CC: Domenica Atkins, Adeola Huizar documented in this encounter Plan of Treatment Upcoming Encounters Date Type Department Care Team (Late st Contact Info) Description 12/23/2024 3:30 PM EDT Office Visit Cardiology at [address] [place] [address] Carlos Eduardo Quan, ALISON [facility] [place] [address] [phone] (work) documented as of this encounter Results [...] CHEMISTRY ORDERA BLES [facility] [place] [address] documented in this encounter Visit Diagnoses Diagnosis Drug-induced ITP- Primary Other secondary thrombocytopenia documented in this encounter Care Teams Pipe And Boiler Covers Supervisor Relationship Specialty Start Date End Date Domenica Atkins APRN PCP - General Family Medicine 11/21/21 documented as of this encounter
--- OUTSIDE RECORDS SUMMARY | 2024-07-10 10:30 | XMS_ITS | Encounter Summary ---
Author Organization [facility] [place] [address] Care Team Providers Care Division Service Manager Name Role Phone Milly Domenica Dayron AGUILAR Primary Care Provider [phone] Reason for Visit * Auth/Cert (Routine) Specialty Diagnoses / Procedures Referred By Contpedrito t Referred To Contact Diagnoses Persistent atrial fibrillation PERSISTENT AFIB Michael Barrios MD [facility] [place] [address] [facility] Referral ID Status Reason Start Date Expiration Date Visits Re quested Visits Authorized [id number] 1 1 Encounter Details Date Type Department Care Team (Late st Contact Info) Description 08/28/2022 11:30 AM EST Office Visit Cardiology at [address] [address] Brandon Mohr PA [facility] [address] Persistent atrial fibrillation Social History Tobacco Use [...] dofetilide initiation. He underwent DC cardioversion at [place] on July 19, 2022 with ERAF within [...] – [place].(Non-Drug; Combo Route) route daily. 31Gx1/4 ??? metoprolol [...] 3:30 PM EDT Office Visit Cardiology at [address] [place] [address] Carlos Eduardo Quan PA [facility] [place] [address] documented as of this encounter Procedures Procedure Name Priority Date/Time Associated Diagnosis Comments EKG 12-LEAD Routine 08/28/2022 11:18 AM EST Persistent atrial fibrillation documented in this encounter Results * EKG 12 Lead (08/28/2022 11:18 AM EST) Ventricular rate 80 BPM MUSE SYSTEM QRS Duration 88 ms MUSE SYSTEM Q-T Interval 400 ms MUSE SYSTEM QTC Calculated (Bezet) 461 ms MUSE SYSTEM Calculated R [place] -15 degrees MUSE SYSTEM Calculated T [place] -8 degrees MUSE SYSTEM INTERPRETATION Atrial fibrillation with premature ventricular or aberrantly conducted complexes Inferior infarct (cited on or before 10-JAN-2022) Abnormal ECG When compared with ECG of 11-JUL-2022 14:11, No significant change was found Confirmed by Md Xavier Katharine ([place]) on 08/29/2022 7:55:40 AM MUSE SYSTEM 08/28/2022 11:1 8 AM EST 08/29/2022 7:55 AM EST Connor Charles MD ECG ORDERABLES [employer] SYSTEM documented in this encounter Visit Diagnoses Diagnosis Persistent atrial fibrillation Atrial fibrillation documented in this encounter Care Teams Division Service Manager Relationship Specialty Start Date End Date Domenica Atkins, LAUREN PCP - General Family Medicine 11/21/21 documented as of this encounter
--- OUTSIDE RECORDS SUMMARY | 2024-07-10 10:31 | XMS_ITS | Encounter Summary ---
[place] [address] Care Team Providers Care Dietetic Intern Name Role Phone Raydayron Domenica Dayron AGUILAR Primary Care Provider [phone] Reason for Referral * Consultation (Routine) - Closed Specialty Diagnoses / Procedures Referred By Valeria t Referred To Contact Hematology and Oncology Diagnoses Drug-induced ITP Adeola Johnson MD [facility] GENERAL [place] [address] [facility] [address] [place] [address] Referral ID Status Reason Start Date Expiration Date V isits Requested Visits Authorized [id number] Closed Consult, Test & Treat 03/11/2022 03/11/2023 1 1 Reason for Visit * Reason Comments Shortness of Breath * Auth/Cert Specialty Diagnoses / Procedures Referred By Contac t Referred To Contact Diagnoses CHF (congestive heart failure) Chronic atrial fibrillation Jorge Deutsch MD [facility] [place] [address] [facility] Referral ID Status Reason Start Date Expiration Date Visits Re quested Visits Authorized [id number] 1 1 Encounter Details Date Type Department Care Team (Latest Contact Info) Description 02/28/2022 10:48 AM EDT - 03/11/2022 2:12 PM EDT Hospital Encounter Cardiac Special Care [place] [address] Morgan Everett MD [facility] [place] [address] Jorge Deutsch MD [facility] [place] [address] Martir Rios MD [facility] [place] [address] Virginia Chris MD [facility] [place] [address] CHF (congestive heart failure) (Primary Dx); Chronic [...] Kelly Shell Patient Age: 72 y.o. Language: Panamanian Race: White Ethnicity: Not nor Admit date: [...] please contact your inpatient physician through the [facility] Muffle Worker . Issues afterhours and on weekends will [...] presented to EP clinic in December at [facility] with complaints of SOB and worsening insomnia as well as PND. He underwent ablation and DCCV on 01/02 at [facility]. He presented to EP clinic at [place] on 01/10 were he wasfound to be [...] pharmacy locally isn't open on Sundays. Please orange picker a three day prescript from [facility] and fill this medication at your [...] Center 04/12/2022 10:00 AM Orlin Trujillo MD [facility] CARD 4A [facility] 07/11/2022 1:40 PM Curtis Arredondo MD [facility] Your Inpatient Doctor: MD Jorge Mehta MD Alina M Bischin, MD Your Primary Care Provider: Domenica Atkins, HEAVY EQUIPMENT RENTAL MANAGER [phone] For questions regarding this document or issues relating to this hospitalization on the Medical Service, please contact your inpatient physician through the [facility] Muffle Worker . Issues afterhours and on weekends will be handled by the Hospitalist staff on-call. General Instructions Future Appointments and Orders Future Appointments and Orders Future Appointments Provider Department Dept Phone 04/12/2022 10:00 AM Orlin Trujillo MD Cardiology at [facility] Arrive at: [employer] Manager Area 4A [phone] 07/11/2022 1:40 PM Curtis Arredondo MD Cardiology at [place] Arrive at: [facility] [address] [phone] Future Orders Complete By Expires Referral to [...] pharmacy locally isn't open on Sundays. Please orange picker a three day prescript from [facility] and fill this medication at your [...] Center 04/12/2022 10:00 AM Orlin Trujillo MD [facility] CARD 4A [facility] 07/11/2022 1:40 PM Curtis Arredondo MD [facility] Your Inpatient Doctor: MD Jorge Mehta MD Alina M Bischin, MD Your Primary Care Provider: Domenica Atkins, HEAVY EQUIPMENT RENTAL MANAGER [phone] For questions regarding this document or issues relating to this hospitalization on the Medical Service, please contact your inpatient physician through the [facility] Muffle Worker . Issues afterhours and on weekends will [...] spent >30 minutes (Day of Discharge Code 08662) involved in the final examination of the [...] Dr. Bertrand. Jake Gonzales MD Hematology/Oncology Fellow [facility] ++++++++++++++++++++++++++++++++++++++++++++++++++++++++++++++++ Heme Attending Addendum: I agree with the recommendations above which were formulated with me. Josh Bertrand MD PhD, Hematology Section, [facility] Pager - [phone] * Terri Tomlinson MD - 03/10/2022 6:15 [...] Terri Tomlinson MD Internal Medicine PGY-1 Pager [phone], M1-S1 Service Associated attestation - Virginia Chris [...] of two midnights or is on the [facility] inpatient only procedure list (status C) due to: severe thrombocytopenia with a requirement for therapeutic anticoagulation necessitating close monitoring. Virginia Chris MD Cardiovascular Medicine Personal Pager [phone] 03/10/2022 8:39 PM * Terri Tomlinson MD [...] of two midnights or is on the [facility] inpatient only procedure list (status C) [...] Virginia Chris MD Cardiovascular Medicine Personal Pager [phone] 03/09/2022 3:30 PM * Gary Amparo R [...] and is not going hungry between meals. Philatelic Consultant provided some diet education- Pt reported he would like to snack butknows he is on a restrictive diet (CHO counting diet). Philatelic Consultant encouraged Pt to work with diet office [...] answered at this time Amparo Vega, [phone] * Kailee Lewis OT - 03/08/2022 10:24 [...] once medically ready. KAILEE LEWIS OTR/L Pager: [phone] Occupational Therapy Rehabilitation Department * Adeola Johnson [...] Dr. Bertrand. Jake Gonzales MD Hematology/Oncology Fellow [facility] +++++++++++++++++++++++++++++++++++++++++++++++++++++++++++++++++++++++++++ Heme Attending Addendum: I agree with the recommendations above and have the following additions: Dexamethasone 10 mg today and 16 mg starting tomorrow Josh Bertrand MD PhD, Hematology Section, [facility] Pager - [phone] * Terri Tomlinson MD - 03/07/2022 6:14 [...] Code Status: Attempt Cardiopulmonary Resuscitation - Inpatient [facility] Fiordaliza Tomlinson MD Internal Medicine PGY-1 Pager [phone], M1-S1 Service Associated attestation - Martir Rios [...] Code Status: Attempt Cardiopulmonary Resuscitation - Inpatient [facility] Fiordaliza Tomlinson MD Internal Medicine PGY-1 [...] Jake Gonzales MD Hematology/Oncology Fellow Pager # [phone] 03/05/22, 5:19 PM Heme Attending Addendum: I agree with the recommendations of the fellow. I have seen and examined the patient, and reviewed all pertinent laboratory and radiographic findings. I agree with the recommendations above which were formulated with me Josh Bertrand MD PhD, Hematology Section, [facility] Pager - [phone] * Terri Tomlinson MD - 03/05/2022 6:28 [...] Code Status: Attempt Cardiopulmonary Resuscitation - Inpatient dAeola Johnson MD Internal Medicine PGY-3 Pager [phone], [...] Mayfield MSW - 03/03/2022 3:08 PM EDT SUGAR CANE PLANTING EQUIPMENT OPERATOR consulted for meals on wheels referral and cleaning person resources. Best number to reach pt and : [phone] Office of Care Management Float/Weekend Sql Server Consultant BONILLA Lobo Pager [phone] * Kailee Lewis OT - 03/03/2022 11:04 [...] and measurable assessment of functional outcome. Pager: [phone] Kailee Lewis OTR/L Occupational Therapy Rehabilitation Department [...] for this consult. Time IN / OUT: 7653-8437 Total Minutes, Physical Therapy: 24 Billing Code: [...] Code Status: Attempt Cardiopulmonary Resuscitation - Inpatient [facility] Fiordaliza Tomlinson MD Internal Medicine PGY-1 Pager [phone], M1-S1 Service Associated attestation - Martir Rios [...] ??? insulin lispro 1-4 Units Subcutaneous Q4H ORB ??? insulin lispro 0-8 Units Subcutaneous TID [...] Code Status: Attempt Cardiopulmonary Resuscitation - Inpatient [facility] Fiordaliza Tomlinson MD Internal Medicine PGY-1 [...] to maintain sinus rhythm. * Jama Mishra [facility] - 03/01/2022 12:04 AM EDT Respiratory Therapy NIV Note ?? Kelly Shell??Linden??is a??72 y.o.??male??with a PMH of T2DM with??who presents to the Emergency Department??with SOB in the setting of persistent Afib and was tnsf to [facility] for further tx. NIV Settings: NIV Mode: Auto Titrating NIV Measurements: Resp: 13 SpO2: 95 % Laboratory: No results found for: PHART, JGX2PIR, PO2ART, NIM6XLA, BEART Last Chest X-ray: Results for orders [...] who have questions please contact the health senior resident care director that requested your imaging first. Electronically signed by: Marie Iqbal MD, [facility] ([phone]), at 02/28/2022 12:45 PM Skin Assessment: NIV Skin Assessment WDL: WDL [...] y.o. Hospital Admit Date: 02/28/2022 Inpatient Attending: Jogre Deutsch MD PCP: Domenica Atkins APRN Presenting [...] presented to EP clinic in December at [facility] with complaints of SOB and worsening insomnia as well as PND. He underwent ablation and DCCV on 01/02 at [facility]. He presented to EP clinic at [place] on 01/10 were he wasfound to be [...] who have questions please contact the health senior resident care director that requested your imaging first. Electronically signed by: Gael Salinas [facility] ([phone]), at 02/28/2022 12:21 PM XR Chest One View (Exam End: 02/28/2022 12:33 PM) Impression Pulmonary vascular congestion with edema and small pleural effusions. Thank you for letting us participate in the care of this patient. If you are a health care provider and have any questions regarding this report, please contact the number below. For patients who have questions please contact the health senior resident care director that requested your imaging first. Electronically signed by: Marie Iqbal MD, [facility] ([phone]), at 02/28/2022 12:45 PM ASSESSMENT and PLAN: Kelly Shell is a 72 y.o. male [...] MD Internal Medicine PGY2 S1 Team, Pager [phone] Attending Addendum: The patient was seen and [...] with reduced ejection fraction. Jorge Deutsch MD, [facility] Attending Sewer Tapper Pager [phone] documented in this encounter ED Notes * [...] plan were discussed with the patient. Brittany Live MD Resident 02/28/22 1640 Associated attestation - [...] Type: *No Product type* / Secondary Insurance: [employer] [facility] [place] Prescription Coverage: No This plan was formulated with input from patient, (please identify family/friend involved if applicable) and team. All are in agreement with plan. I have verbally reviewed Medicare Discharge Rights with patient. Patient verbalizes understanding of right to appeal this discharge if feeling not medically ready. Offered a copy of this letter. Michelle Mack RN CM. BSN Ext [phone] * Plan of Care - Katie Hay [...] Barriers to discharge: None Plan going forward: SUGAR CANE PLANTING EQUIPMENT OPERATOR to assist patient and in identifying community [...] DM type II, GERD,BPH, who presented to [facility] on 02/28/2022 in setting of AFib RVR and acute decompensated heart failure. Patient reported increased dyspnea over the last month. He is followed in electrophysiology by Dr. Curtis Arredondo and was last seen by him in [place] cardiology clinic on January 10 at which [...] he go directly to the ED. At [facility], patient was found to be in acute [...] vial 1-4 Units 1-4 Units Subcutaneous Q4H [facility] Chris Monte Jr., MD 1 Units at 03/05/22 1135 ??? insulin lispro (HumaLOG;Admelog) (100 unit/mL) subcutaneous injection vial 0-8 Units 0-8 Units Subcutaneous TID Chris Monte Jr., MD 2 Units at 03/05/22 1244 No current [facility]-ordered outpatient medications on file. Family History: [...] PM Attending: Gerda Acosta MD Service Pager: [phone] Staff addendum: I have seen and evaluated [...] from 02/28/2022 in Cardiac Special Care Unit [facility] Weight 110 kg (242 lb 8.1 [...] m?? Lactate, whole blood, send to lab ([facility]) Result Value Ref Range Lactate WB 2.0 [...] QTC Calculated (Bezet) 462 ms Calculated P Rinard 145 degrees Calculated R Rinard -21 degrees Calculated T Rinard -25 degrees INTERPRETATION Most likely normal sinus [...] QTC Calculated (Bezet) 513 ms Calculated P Rinard 57 degrees Calculated R Rinard -6 degrees Calculated T Rinard 9 degrees INTERPRETATION Normal sinus rhythm with [...] Jake Gonzales MD Hematology/Oncology Fellow Pager # [phone] 03/03/22, 3:14 PM Hematology/Oncology Clinic [facility] [place] [address] Associated attestation - Ulices Ardon MD - [...] go to the local outpatient therapy at [facility]. PT aware. Functional status prior to admission: [...] Type: *No Product type* / Secondary Insurance: [facility] Last Physical Therapy Recommendation: home with home [...] Anticipated Date of Discharge: 03/03/2022 Covering pager #[phone] for today. * Care Management Discharge - [...] Type: *No Product type* / Secondary Insurance: [facility] Prescription Coverage: No This plan was formulated [...] legs elevated.) Home Address confirmed as: [address] [address] Social & Family Supports: All names listed below confirmed with patient as current and correct Extended Emergency Contact Information Primary Emergency Contact: KINDRA SHELL Da Address: [address] [place] [address] [facility] Mobile Relation: Spouse Secondary Emergency Contact: [place] [address] [facility] Mobile Relation: Stepchild Current Care Provided by: [...] Type: *No Product type* / Secondary Insurance: [facility] Prescription Coverage: No Preferred Pharmacy: [address] [address] [place] Status: Patient is a : No Primary Care Provider: Domenica Atkins, HEAVY EQUIPMENT RENTAL MANAGER [phone] Patient/Caregiver Goals of Treatment: Pt anticipates on [...] 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 Pt lives withhis [...] of care planning. Katie Pollack, RN, BSN actuarial associate Office of Care Management Pager: [phone] * Brief Op Note - Lali Sam MD - 03/01/2022 11:17 AM EDT Brief Operative Note Patient Name: Kelly Shell : [id number] MR#: [id number] Case Date: 03/01/2022 Surgeon: MD Rene. MD [...] Prevention Bundle Used? N/A Lali Sam MD [facility] Us Customs And Border Officer, PGY-4 Pager #[phone] Can Epic message me 7AM-4PM on week [...] SYDNEY will be done with anesthesia in [facility]. Please see forthcoming anesthesia note. The patient's questions regarding the procedure were answered. Written, informed consent was obtained after a thorough discussion of the risks and benefits of SYDNEY as detailed in the printed consent form. Lali Sam MD [facility] Us Customs And Border Officer, PGY-4 Pager #[phone] Can Epic message me 7AM-4PM on week for non-urgent matters * Consult Note - Rachel Lorenzo RPH - 02/28/2022 5:33 PM EDT Clinical Pharmacist Review; Rachel Lorenzo RPH, PharmD Geriatric ED Medication Reconciliation Patient: Kelly Shell 72 y.o. male 1950 PCP: Domenica Atkins APRN Pharmacy: [facility] Allergies and Drug intolerance: No Known [...] effects from medications? no Rachel Lorenzo, [facility] 02/28/22 Duration: 30 minutes * Plan of Care - Lali Sam MD - 02/28/2022 4:07 PM EDT Images from the original note were not included. Us Customs And Border Officer Plan of Care 72 M with history [...] MR, TR. Plan -Admit to , [place], [facility] level -Aggressive IV diuresis. Anticipate more lasix around 8 PM -Will need SYDNEY prior to cardioversion vs antiarrhythmic (posisble dofetilide? Will discuss with EP) -low threshold for rescue bipap -continue anticoagluation Lali Sam MD [facility] Us Customs And Border Officer, PGY-4 Pager #[phone] Can Epic message me 7AM-4PM on weekdays [...] PM EDT Office Visit Cardiology at [address] [address] Carlos Eduardo Quan, [facility] [place] [address] Scheduled Orders Name Type Priority Associated Diagnoses [...] (ABNORMAL) POCT Glucose (03/11/2022 11:55 AM EDT) [facility] Glucose, POC 244(H) 65 - 199 mg/dL [facility] Comment: Supplemental ranges: <140 mg/dL before meals <180 mg/dL all other times of the day Blood 03/11/2022 11:5 5 AM EDT 03/11/2022 11:55 AM EDT Virginia Chris MD POINT OF CARE TEST O RDERABLES [facility] [place] [address] * (ABNORMAL) Digoxin level (03/11/2022 8:12 AM EDT) [facility] Digoxin 0.6(L) 0.8 - 2.0 mcg/L [facility] Blood 03/11/2022 8:12 AM EDT 03/11/2022 8:31 AM EDT Narrative Resulting Agency Comment Spec In Lab Martir Rios MD CHEMISTRY ORDERABLES Performing Organization Address [facility] Co de Phone Number [facility] [place] [address] * POCT Glucose (03/11/2022 7:29 AM EDT) Pathologist [facility] Glucose, POC 181 65 - 199 mg/dL [facility] Comment: Supplemental ranges: <140 mg/dL before meals <180 mg/dL all other times of the day Blood 03/11/2022 7:29 AM EDT 03/11/2022 7:29 AM EDT Virginia Chris MD POINT OF CARE TEST O RDERABLES Performing Organization Address [facility] Co de Phone Number [facility] [place] [address] * Scan, Peripheral Blood (03/11/2022 4:35 AM EDT) [facility] Plat estimate Decreased [facility] RBC Morphology Abnormal [facility] Ovalocytes 1-5 /HPF [facility] Atypical Lymph Many [facility] Blood 03/11/2022 4:35 AM EDT 03/11/2022 5:15 AM EDT Narrative Resulting Agency Comment Spec In Lab Alfredito Israel MD HEMATOLOGY ORDERABL ES Performing Organization Address [facility]/ZIP Co de Phone Number [facility] [place] [address] * (ABNORMAL) Differential, Automated (03/11/2022 4:35 AM EDT) Neutrophil % 80.6 % [facility] Neutrophil Absolute 9.62(H) 1.70 - 6.10 x10(3)/mc L [facility] Lymph % 11.6 % [facility] Lymphocytes Abs 1.4 0.9 - 3.2 x10(3)/ L [facility] Monocyte % 6.4 % [facility] Monocyte Abs 0.8 0.3 - 0.9 x10(3)/ L [facility] Eos % 0.0 % [facility] Eosinophils Abs 0.0 0.0 - 0.4 x10(3)/[facility] Basophil % 0.2 % [facility] Baso Absolute 0.0 0.0 - 0.1 x10(3)/[facility] Immature Gran % 1.20 % [facility] Comment: Immature granulocytes(IG's)percentage and absolute count will include metamyelocytes, myelocytes, and promyelocytes. Blood smears from CBCs yielding IG's will be scanned manually for concordance. If this scan disagrees with the automated IG or if promyelocytes are noted, a manual differential will be performed. Immature Gran Absolute 0.14(H) 0.00 - 0.04 x10(3)/[facility] Blood 03/11/2022 4:35 AM EDT 03/11/2022 5:15 AM EDT Narrative Resulting Agency Comment Spec In Lab Alfredito Israel MD HEMATOLOGY ORDERABL ES [facility] [place] [address] * (ABNORMAL) Hemogram (03/11/2022 4:35 AM EDT) White Blood Cell 11.9(H) 4.0 - 9.5 x10(3)/ L [facility] Red Blood Cell 4.38(L) 4.58 - 5.54 x10(6)/ L [facility] Hemoglobin 13.3(L) 13.7 - 16.5 g/dL [facility] Hematocrit 39.8(L) 40.5 - 48.5 % [facility] Mean Cell Volume 90.9 82.9 - 93.1 fL [facility] Mean Cell Hemoglobin 30.4 27.5 - 32.1 pg [facility] Mean Cell Hemoglobin Concentration 33.4 32.0 - 35.7 g/dL [facility] Platelet 46(L) 145 - 357 x10(3)/mc L [facility] RDW Standard Deviation 44.8 36.0 - 45.0 fL [facility] RDW coefficient of variation 13.5 11.4 - 13.8 % [facility] Mean Platelet Volume 13.6(H) 7.6 - 12.9 fL [facility] NRBC% auto 0.0 % [facility] NRBC Absolute 0.000 0.000 - 0.000 x10(3)/mc L [facility] Blood 03/11/2022 4:35 AM EDT 03/11/2022 5:15 AM EDT Narrative Resulting Agency Comment Spec In Lab Alfredito Israel MD HEMATOLOGY ORDERABL ES Performing Organization Address [facility] Co de Phone Number [facility] [place] [address] * Magnesium (03/11/2022 4:35 AM EDT) Magnesium 0.82 0.69 - 1.07 mmol/L [facility] Blood 03/11/2022 4:35 AM EDT 03/11/2022 5:15 AM EDT Narrative Resulting Agency Comment Spec In Lab Jorge Deutsch MD CHEMISTRY ORDERABLES Performing Organization Address [facility] Co de Phone Number [facility] [place] [address] * (ABNORMAL) Basic Metabolic Panel (non-fasting) (03/11/2022 4:35 AM EDT) Glucose 201(H) 65 - 199 mg/dL [facility] Comment:Diabetes: >=200 mg/d L plus symptoms Blood Urea Nitrogen 29(H) 10 - 20 mg/dL [facility] Creatinine 0.82 0.80 - 1.50 mg/dL [facility] Sodium 136 135 - 145 mmol/L [facility] Potassium 4.6 3.5 - 5.0 mmol/L [facility] Comment: Please note: ??Patients with WBC >100,000 may have falsely elevated Potassium levels. ??For accurate Potassium quantification in these patients send serum separator tube (gold top) for subsequent determinations. ??Contact the Clinical Chemistry Laboratory if there are any questions. Chloride 102 98 - 107 mmol/L [facility] Carbon Dioxide 23 22 - 31 mmol/L [facility] Anion Gap 11 5 - 15 mmol/L [facility] Calcium 9.2 8.5 - 10.5 mg/dL [facility] Est Glomerular Filtration Rate 93 >=60 mL/min/1. 73 m?? [facility] Comment: This patient's estimated GFR [...] In Lab Jorge Deutsch MD CHEMISTRY ORDERABLES [facility] [place] [address] * POCT Glucose (03/10/2022 8:10 PM EDT) [facility] Signature Glucose, POC 195 65 - 199 mg/dL [facility] Comment: Supplemental ranges: <140 mg/dL before meals <180 mg/dL all other times of the day Blood 03/10/2022 8:10 PM EDT 03/10/2022 8:10 PM EDT Virginia Chris MD POINT OF CARE TEST O ALEX Performing Organization Address City/[facility]/ZIP Co de Phone Number [facility] [place] [address] * POCT Glucose (03/10/2022 4:27 PM EDT) Glucose, POC 195 65 - 199 mg/dL [facility] Comment: Supplemental ranges: <140 mg/dL before meals <180 mg/dL all other times of the day Blood 03/10/2022 4:27 PM EDT 03/10/2022 4:27 PM EDT Virginia Chris MD POINT OF CARE TEST O ALEX Performing Organization Address [facility] Co de Phone Number [facility] [place] [address] * (ABNORMAL) POCT Glucose (03/10/2022 2:46 PM EDT) Glucose, POC 262(H) 65 - 199 mg/dL [facility] Comment: Supplemental ranges: <140 mg/dL before meals <180 mg/dL all other times of the day Blood 03/10/2022 2:46 PM EDT 03/10/2022 2:46 PM EDT Virginia Chris MD POINT OF CARE TEST O ALEX Performing Organization Address City/[facility] Co de Phone Number [facility] [place] [address] * (ABNORMAL) POCT Glucose (03/10/2022 1:01 PM EDT) Glucose, POC 311(H) 65 - 199 mg/dL [facility] Comment: Supplemental ranges: <140 mg/dL before meals <180 mg/dL all other times of the day Blood 03/10/2022 1:01 PM EDT 03/10/2022 1:01 PM EDT Virginia Chris MD POINT OF CARE TEST O ALEX Performing Organization Address City/[facility]/ZIP Co de Phone Number [facility] [place] [address] * (ABNORMAL) POCT Glucose (03/10/2022 11:57 AM EDT) Glucose, POC 306(H) 65 - 199 mg/dL [facility] Comment: Supplemental ranges: <140 mg/dL before meals <180 mg/dL all other times of the day Blood 03/10/2022 11:5 7 AM EDT 03/10/2022 11:57 AM EDT Virginia Chris MD POINT OF CARE TEST oCry JOHNSON Performing Organization Address [facility] Co de Phone Number [facility] [place] [address] * (ABNORMAL) POCT Glucose (03/10/2022 7:55 AM EDT) Glucose, POC 218(H) 65 - 199 mg/dL [facility] Comment: Supplemental ranges: <140 mg/dL before meals <180 mg/dL all other times of the day Blood 03/10/2022 7:55 AM EDT 03/10/2022 7:55 AM EDT Virginia Chris MD POINT OF CARE TEST O ALEX Performing Organization Address City/[facility]/ZIP Co de Phone Number [facility] [place] [address] * (ABNORMAL) Differential, Automated (03/10/2022 3:57 AM EDT) Neutrophil % 80.9 % [facility] Neutrophil Absolute 9.19(H) 1.70 - 6.10 x10(3)/ L [facility] Lymph % 12.0 % [facility] Lymphocytes Abs 1.4 0.9 - 3.2 x10(3)/ L [facility] Monocyte % 5.5 % [facility] Monocyte Abs 0.6 0.3 - 0.9 x10(3)/[facility] Eos % 0.0 % [facility] Eosinophils Abs 0.0 0.0 - 0.4 x10(3)/[facility] Basophil % 0.2 % [facility] Baso Absolute 0.0 0.0 - 0.1 x10(3)/[facility] Immature Gran % 1.40 % [facility] Comment: Immature granulocytes(IG's)percentage and absolute count will include metamyelocytes, myelocytes, and promyelocytes. Blood smears from CBCs yielding IG's will be scanned manually for concordance. If this scan disagrees with the automated IG or if promyelocytes are noted, a manual differential will be performed. Immature Gran Absolute 0.16(H) 0.00 - 0.04 x10(3)/[facility] Blood 03/10/2022 3:57 AM EDT 03/10/2022 4:36 AM EDT Narrative Resulting Agency Comment Spec In Lab Alfredito Israel MD HEMATOLOGY ORDERABL ES [facility] [place] [address] * (ABNORMAL) Hemogram (03/10/2022 3:57 AM EDT) Pathologist [facility] White Blood Cell 11.4(H) 4.0 - 9.5 x10(3)/[facility] Red Blood Cell 4.48(L) 4.58 - 5.54 x10(6)/mc L [facility] Hemoglobin 13.7 13.7 - 16.5 g/dL [facility] Hematocrit 40.9 40.5 - 48.5 % [facility] Mean Cell Volume 91.3 82.9 - 93.1 fL [facility] Mean Cell Hemoglobin 30.6 27.5 - 32.1 pg [facility] Mean Cell Hemoglobin Concentration 33.5 32.0 - 35.7 g/dL [facility] Platelet 31(L) 145 - 357 x10(3)/mc L [facility] RDW Standard Deviation 44.0 36.0 - 45.0 fL [facility] RDW coefficient of variation 13.2 11.4 - 13.8 % [facility] Mean Platelet Volume 14.0(H) 7.6 - 12.9 fL [facility] NRBC% auto 0.0 % [facility] NRBC Absolute 0.000 0.000 - 0.000 x10(3)/mc L [facility] Blood 03/10/2022 3:57 AM EDT 03/10/2022 4:36 AM EDT Narrative Resulting Agency Comment Spec In Lab Alfredito Israel MD HEMATOLOGY ORDERABL ES Performing Organization Address City/[facility]/ZIP Co de Phone Number [facility] [place] [address] * Magnesium (03/10/2022 3:57 AM EDT) Magnesium 0.86 0.69 - 1.07 mmol/L [facility] Blood 03/10/2022 3:57 AM EDT 03/10/2022 4:36 AM EDT Narrative Resulting Agency Comment Spec In Lab Jorge Deutsch MD CHEMISTRY ORDERABLES Performing Organization Address City/[facility]/ZIP Co de Phone Number [facility] [place] [address] * (ABNORMAL) Basic Metabolic Panel (non-fasting) (03/10/2022 3:57 AM EDT) Glucose 242(H) 65 - 199 mg/dL [facility] Comment:Diabetes: >=200 mg/d L plus symptoms Blood Urea Nitrogen 38(H) 10 - 20 mg/dL [facility] Creatinine 0.97 0.80 - 1.50 mg/dL [facility] Sodium 133(L) 135 - 145 mmol/L [facility] Potassium 4.8 3.5 - 5.0 mmol/L [facility] Comment: Please note: ??Patients with WBC >100,000 may have falsely elevated Potassium levels. ??For accurate Potassium quantification in these patients send serum separator tube (gold top) for subsequent determinations. ??Contact the Clinical Chemistry Laboratory if there are any questions. Chloride 98 98 - 107 mmol/L [facility] Carbon Dioxide 24 22 - 31 mmol/L [facility] Anion Gap 11 5 - 15 mmol/L [facility] Calcium 9.3 8.5 - 10.5 mg/dL [facility] Est Glomerular Filtration Rate 83 >=60 mL/min/1. 73 m?? [facility] Comment: This patient's estimated GFR [...] Deutsch MD CHEMISTRY ORDERABLES Performing Organization Address City/State/[facility] Co de Phone Number [facility] [place] [address] * (ABNORMAL) POCT Glucose (03/09/2022 7:11 PM EDT) Glucose, POC 229(H) 65 - 199 mg/dL [facility] Comment: Supplemental ranges: <140 mg/dL before meals <180 mg/dL all other times of the day Blood 03/09/2022 7:11 PM EDT 03/09/2022 7:11 PM EDT Virginia Chris MD POINT OF CARE TEST O ALEX Performing Organization Address [facility] Co de Phone Number [facility] [place] [address] * (ABNORMAL) POCT Glucose (03/09/2022 4:56 PM EDT) Glucose, POC 241(H) 65 - 199 mg/dL [facility] Comment: Supplemental ranges: <140 mg/dL before meals <180 mg/dL all other times of the day Blood 03/09/2022 4:56 PM EDT 03/09/2022 4:56 PM EDT Virginia Chris MD POINT OF CARE TEST Cory JOHNSON Performing Organization Address [facility] Co de Phone Number [facility] [place] [address] * (ABNORMAL) POCT Glucose (03/09/2022 2:46 PM EDT) Glucose, POC 255(H) 65 - 199 mg/dL [facility] Comment: Supplemental ranges: <140 mg/dL before meals <180 mg/dL all other times of the day Blood 03/09/2022 2:46 PM EDT 03/09/2022 2:46 PM EDT Virginia Chris MD POINT OF CARE TEST O RDERABLES Performing Organization Address [facility] de Phone Number [facility] [place] [address] * (ABNORMAL) POCT Glucose (03/09/2022 12:16 PM EDT) Glucose, POC 268(H) 65 - 199 mg/dL [facility] Comment: Supplemental ranges: <140 mg/dL before meals <180 mg/dL all other times of the day Blood 03/09/2022 12:1 6 PM EDT 03/09/2022 12:16 PM EDT Virginia Chris MD POINT OF CARE TEST O STEPHANIEERAJESSIE Performing Organization Address [facility] de Phone Number [facility] [place] [address] * (ABNORMAL) POCT Glucose (03/09/2022 7:53 AM EDT) Glucose, POC 213(H) 65 - 199 mg/dL [facility] Comment: Supplemental ranges: <140 mg/dL before meals <180 mg/dL all other times of the day Blood 03/09/2022 7:53 AM EDT 03/09/2022 7:53 AM EDT Martir Rios MD POINT OF CARE TEST O ALEX Performing Organization Address [facility] Co de Phone Number [facility] [place] [address] * (ABNORMAL) Differential, Automated (03/09/2022 4:14 AM EDT) Neutrophil % 79.0 % [facility] Neutrophil Absolute 8.08(H) 1.70 - 6.10 x10(3)/mc L [facility] Lymph % 13.6 % [facility] Lymphocytes Abs 1.4 0.9 - 3.2 x10(3)/mc L [facility] Monocyte % 6.9 % [facility] Monocyte Abs 0.7 0.3 - 0.9 x10(3)/[facility] Eos % 0.0 % [facility] Eosinophils Abs 0.0 0.0 - 0.4 x10(3)/[facility] Basophil % 0.1 % [facility] Baso Absolute 0.0 0.0 - 0.1 x10(3)/[facility] Immature Gran % 0.40 % [facility] Comment: Immature granulocytes(IG's)percentage and absolute count will include metamyelocytes, myelocytes, and promyelocytes. Blood smears from CBCs yielding IG's will be scanned manually for concordance. If this scan disagrees with the automated IG or if promyelocytes are noted, a manual differential will be performed. Immature Gran Absolute 0.04 0.00 - 0.04 x10(3)/[facility] Blood 03/09/2022 4:14 AM EDT 03/09/2022 4:28 AM EDT Narrative Resulting Agency Comment Spec In Lab Alfredito Israel MD HEMATOLOGY ORDERABL ES [facility] [place] [address] * (ABNORMAL) Hemogram (03/09/2022 4:14 AM EDT) White Blood Cell 10.2(H) 4.0 - 9.5 x10(3)/[facility] Red Blood Cell 4.51(L) 4.58 - 5.54 x10(6)/[facility] Hemoglobin 13.7 13.7 - 16.5 g/dL [facility] Hematocrit 40.9 40.5 - 48.5 % [facility] Mean Cell Volume 90.7 82.9 - 93.1 fL [facility] Mean Cell Hemoglobin 30.4 27.5 - 32.1 pg [facility] Mean Cell Hemoglobin Concentration 33.5 32.0 - 35.7 g/dL [facility] Platelet 20(L) 145 - 357 x10(3)/mc L [facility] RDW Standard Deviation 43.8 36.0 - 45.0 fL [facility] RDW coefficient of variation 13.2 11.4 - 13.8 % [facility] Mean Platelet Volume 14.3(H) 7.6 - 12.9 fL [facility] NRBC% auto 0.0 % [facility] NRBC Absolute 0.000 0.000 - 0.000 x10(3)/mc L [facility] Blood 03/09/2022 4:14 AM EDT 03/09/2022 4:28 AM EDT Narrative Resulting Agency Comment Spec In Lab Alfredito Israel MD HEMATOLOGY ORDERABL ES Performing Organization Address [facility] Co de Phone Number [facility] [place] [address] * Magnesium (03/09/2022 4:14 AM EDT) Magnesium 0.85 0.69 - 1.07 mmol/L [facility] Blood 03/09/2022 4:14 AM EDT 03/09/2022 4:28 AM EDT Narrative Resulting Agency Comment Spec In Lab Jorge Deutsch MD CHEMISTRY ORDERABLES Performing Organization Address [facility] Co de Phone Number [facility] [place] [address] * (ABNORMAL) Basic Metabolic Panel (non-fasting) (03/09/2022 4:14 AM EDT) Glucose 239(H) 65 - 199 mg/dL [facility] Comment:Diabetes: >=200 mg/d L plus symptoms Blood Urea Nitrogen 39(H) 10 - 20 mg/dL [facility] Creatinine 1.12 0.80 - 1.50 mg/dL [facility] Sodium 132(L) 135 - 145 mmol/L [facility] Potassium 4.9 3.5 - 5.0 mmol/L [facility] Comment: Please note: ??Patients with WBC >100,000 may have falsely elevated Potassium levels. ??For accurate Potassium quantification in these patients send serum separator tube (gold top) for subsequent determinations. ??Contact the Clinical Chemistry Laboratory if there are any questions. Chloride 97(L) 98 - 107 mmol/L [facility] Carbon Dioxide 25 22 - 31 mmol/L [facility] Anion Gap 10 5 - 15 mmol/L [facility] Calcium 9.3 8.5 - 10.5 mg/dL [facility] Est Glomerular Filtration Rate 70 >=60 mL/min/1. 73 m?? [facility] Comment: This patient's estimated GFR [...] In Lab Jorge Deutsch MD CHEMISTRY ORDERABLES [facility] [place] [address] * POCT Glucose (03/08/2022 9:13 PM EDT) Glucose, POC 197 65 - 199 mg/dL [facility] Comment: Supplemental ranges: <140 mg/dL before meals <180 mg/dL all other times of the day Blood 03/08/2022 9:13 PM EDT 03/08/2022 9:13 PM EDT Martir Rios MD POINT OF CARE TEST O RDERABLES [facility] [place] [address] * POCT Glucose (03/08/2022 4:47 PM EDT) Glucose, POC 198 65 - 199 mg/dL [facility] Comment: Supplemental ranges: <140 mg/dL before meals <180 mg/dL all other times of the day Blood 03/08/2022 4:47 PM EDT 03/08/2022 4:47 PM EDT Martir Rios MD POINT OF CARE TEST O RDERAJESSIE Performing Organization Address [facility]/ZIP Co de Phone Number [facility] [place] [address] * (ABNORMAL) POCT Glucose (03/08/2022 2:22 PM EDT) Glucose, POC 258(H) 65 - 199 mg/dL [facility] Comment: Supplemental ranges: <140 mg/dL before meals <180 mg/dL all other times of the day Blood 03/08/2022 2:22 PM EDT 03/08/2022 2:22 PM EDT Martir Rios MD POINT OF CARE TEST O RDERABLES Performing Organization Address City/[facility]/ZIP Co de Phone Number [facility] [place] [address] * (ABNORMAL) POCT Glucose (03/08/2022 11:49 AM EDT) Glucose, POC 277(H) 65 - 199 mg/dL [facility] Comment: Supplemental ranges: <140 mg/dL before meals <180 mg/dL all other times of the day Blood 03/08/2022 11:4 9 AM EDT 03/08/2022 11:49 AM EDT Martir Rios MD POINT OF CARE TEST O RDERAJESSIE Performing Organization Address [facility]/ZIP Co de Phone Number [facility] [place] [address] * (ABNORMAL) POCT Glucose (03/08/2022 7:28 AM EDT) Glucose, POC 298(H) 65 - 199 mg/dL [facility] Comment: Supplemental ranges: <140 mg/dL before meals <180 mg/dL all other times of the day Blood 03/08/2022 7:28 AM EDT 03/08/2022 7:28 AM EDT Martir Rois MD POINT OF CARE TEST O ALEX Performing Organization Address [facility] Co de Phone Number [facility] [place] [address] * (ABNORMAL) POCT Glucose (03/08/2022 5:21 AM EDT) Glucose, POC 240(H) 65 - 199 mg/dL [facility] Comment: Supplemental ranges: <140 mg/dL before meals <180 mg/dL all other times of the day Blood 03/08/2022 5:21 AM EDT 03/08/2022 5:21 AM EDT Martir Rios MD POINT OF CARE TEST O STEPHANIEERAJESSIE Performing Organization Address [facility] Co de Phone Number [facility] [place] [address] * Scan, Peripheral Blood (03/08/2022 3:41 AM EDT) Plat estimate Decreased [facility] RBC Morphology Abnormal [facility] Ovalocytes 1-5 /HPF [facility] Momo Cells 1-5 /HPF [facility] Blood 03/08/2022 3:41 AM EDT 03/08/2022 4:12 AM EDT Narrative Resulting Agency Comment Spec In Lab Alfredito Israel MD HEMATOLOGY ORDERABL ES [facility] [place] [address] * Differential, Automated (03/08/2022 3:41 AM EDT) Neutrophil % 56.2 % [facility] Neutrophil Absolute 1.70 1.70 - 6.10 x10(3)/[facility] LAB[facility] Lymph % 32.8 % [facility] Lymphocytes Abs 1.0 0.9 - 3.2 x10(3)/[facility] Monocyte % 9.3 % [facility] Monocyte Abs 0.3 0.3 - 0.9 x10(3)/[facility] Eos % 0.3 % [facility] Eosinophils Abs 0.0 0.0 - 0.4 x10(3)/[facility] Basophil % 0.7 % [facility] Baso Absolute 0.0 0.0 - 0.1 x10(3)/[facility] Immature Gran % 0.70 % [facility] Comment: Immature granulocytes(IG's)percentage and absolute count will include metamyelocytes, myelocytes, and promyelocytes. Blood smears from CBCs yielding IG's will be scanned manually for concordance. If this scan disagrees with the automated IG or if promyelocytes are noted, a manual differential will be performed. Immature Gran Absolute 0.02 0.00 - 0.04 x10(3)/[facility] LAB[facility] Blood 03/08/2022 3:41 AM EDT 03/08/2022 4:12 AM EDT Narrative Resulting Agency Comment Spec In Lab Alfredito Israel MD HEMATOLOGY ORDERABL ES Performing Organization Address City/[facility]/ZIP Co de Phone Number [facility] [place] [address] * (ABNORMAL) Hemogram (03/08/2022 3:41 AM EDT) White Blood Cell 3.0(L) 4.0 - 9.5 x10(3)/mc L [facility] Red Blood Cell 4.76 4.58 - 5.54 x10(6)/mc L [facility] Hemoglobin 14.4 13.7 - 16.5 g/dL [facility] Hematocrit 44.3 40.5 - 48.5 % [facility] Mean Cell Volume 93.1 82.9 - 93.1 fL [facility] Mean Cell Hemoglobin 30.3 27.5 - 32.1 pg [facility] Mean Cell Hemoglobin Concentration 32.5 32.0 - 35.7 g/dL [facility] Platelet 19(Critic al) 145 - 357 x10(3)/mc L [facility] Comment: This result has been called to JADYN CASANDRA by YARELIS ARGUETA on 03 08 2022 at 0518, and has been read back. RDW Standard Deviation 45.7(H) 36.0 - 45.0 fL [facility] RDW coefficient of variation 13.3 11.4 - 13.8 % [facility] Mean Platelet Volume 13.6(H) 7.6 - 12.9 fL [facility] NRBC% auto 0.0 % [facility] NRBC Absolute 0.000 0.000 - 0.000 x10(3)/ L [facility] Blood 03/08/2022 3:41 AM EDT 03/08/2022 4:12 AM EDT Narrative Resulting Agency Comment Spec In Lab Alfredito Israel MD HEMATOLOGY ORDERABL ES [facility] [place] [address] * Magnesium (03/08/2022 3:41 AM EDT) Magnesium 0.79 0.69 - 1.07 mmol/L [facility] Blood 03/08/2022 3:41 AM EDT 03/08/2022 4:12 AM EDT Narrative Resulting Agency Comment Spec In Lab Jorge Deutsch MD CHEMISTRY ORDERABLES [facility] [place] [address] * (ABNORMAL) Basic Metabolic Panel (non-fasting) (03/08/2022 3:41 AM EDT) Glucose 217(H) 65 - 199 mg/dL [facility] Comment:Diabetes: >=200 mg/d L plus symptoms Blood Urea Nitrogen 27(H) 10 - 20 mg/dL [facility] Creatinine 1.00 0.80 - 1.50 mg/dL [facility] Sodium 132(L) 135 - 145 mmol/L [facility] Comment:result rechecked-KS Potassium 4.7 3.5 - 5.0 mmol/L [facility] Comment: result rechecked-KS Please note: ??Patients with WBC >100,000 may have falsely elevated Potassium levels. ??For accurate Potassium quantification in these patients send serum separator tube (gold top) for subsequent determinations. ??Contact the Clinical Chemistry Laboratory if there are any questions. Chloride 96(L) 98 - 107 mmol/L [facility] Comment:result rechecked-[place] Carbon Dioxide 24 22 - 31 mmol/L [facility] Anion Gap 12 5 - 15 mmol/L [facility] Calcium 8.9 8.5 - 10.5 mg/dL [facility] Est Glomerular Filtration Rate 80 >=60 mL/min/1. 73 m?? [facility] Comment: This patient's estimated GFR [...] Deutsch MD CHEMISTRY ORDERABLES Performing Organization Address [facility] Co de Phone Number [facility] [place] [address] * (ABNORMAL) POCT Glucose (03/07/2022 11:40 PM EDT) Glucose, POC 234(H) 65 - 199 mg/dL [facility] Comment: Supplemental ranges: <140 mg/dL before meals <180 mg/dL all other times of the day Blood 03/07/2022 11:4 0 PM EDT 03/07/2022 11:40 PM EDT Martir Rios MD POINT OF CARE TEST O RDERABLES Performing Organization Address [facility] Co de Phone Number [facility] [place] [address] * (ABNORMAL) POCT Glucose (03/07/2022 7:59 PM EDT) Glucose, POC 201(H) 65 - 199 mg/dL [facility] Comment: Supplemental ranges: <140 mg/dL before meals <180 mg/dL all other times of the day Blood 03/07/2022 7:59 PM EDT 03/07/2022 7:59 PM EDT Martir Rios MD POINT OF CARE TEST O RDERABLES Performing Organization Address [facility] Co de Phone Number [facility] [place] [address] * POCT Glucose (03/07/2022 4:10 PM EDT) Glucose, POC 162 65 - 199 mg/dL [facility] Comment: Supplemental ranges: <140 mg/dL before meals <180 mg/dL all other times of the day Blood 03/07/2022 4:10 PM EDT 03/07/2022 4:10 PM EDT Martir Rios MD POINT OF CARE TEST O RDERAJESSIE Performing Organization Address [facility] de Phone Number [facility] [place] [address] * POCT Glucose (03/07/2022 11:19 AM EDT) Glucose, POC 185 65 - 199 mg/dL [facility] Comment: Supplemental ranges: <140 mg/dL before meals <180 mg/dL all other times of the day Blood 03/07/2022 11:1 9 AM EDT 03/07/2022 11:19 AM EDT Martir Rios MD POINT OF CARE TEST O RDERABLES Performing Organization Address [facility] Co de Phone Number [facility] [place] [address] * EKG 12 Lead (03/07/2022 8:58 AM EDT) Ventricular rate 97 BPM MUSE SYSTEM QRS Duration 88 ms MUSE SYSTEM Q-T Interval 376 ms MUSE SYSTEM QTC Calculated (Bezet) 477 ms MUSE SYSTEM Calculated R Rinard -43 degrees MUSE SYSTEM Calculated T Rinard -31 degrees MUSE SYSTEM INTERPRETATION Atrial fibrillation [...] Lateral leads Confirmed by MD Chris Danette ([id number]) on 03/08/2022 3:03:58 PM MUSE SYSTEM 03/07/2022 8:58 AM EDT 03/08/2022 3:03 PM EDT Martir Rios MD ECG ORDERABLES Performing Organization Address City/[facility]/ZIP Co de Phone Number MUSE SYSTEM * POCT Glucose (03/07/2022 7:48 AM EDT) Pathologist [facility] Center Glucose, POC 165 65 - 199 mg/dL [facility] Comment: Supplemental ranges: <140 mg/dL before meals <180 mg/dL all other times of the day Blood 03/07/2022 7:48 AM EDT 03/07/2022 7:48 AM EDT Martir Rios MD POINT OF CARE TEST O RDERABLES Performing Organization Address City/[facility]/ZIP Co de Phone Number [facility] [place] [phone] * (ABNORMAL) Differential, Automated (03/07/2022 5:15 AM EDT) [facility] Neutrophil % 63.0 % [facility] Neutrophil Absolute 3.91 1.70 - 6.10 x10(3)/mc L [facility] Lymph % 19.2 % [facility] Lymphocytes Abs 1.2 0.9 - 3.2 x10(3)/mc L [facility] Monocyte % 13.2 % [facility] Monocyte Abs 0.8 0.3 - 0.9 x10(3)/mc L [facility] Eos % 2.3 % [facility] Eosinophils Abs 0.1 0.0 - 0.4 x10(3)/mc L [facility] Basophil % 1.3 % [facility] Baso Absolute 0.1 0.0 - 0.1 x10(3)/mc L [facility] Immature Gran % 1.00 % [facility] Comment: Immature granulocytes(IG's)percentage and absolute count will include metamyelocytes, myelocytes, and promyelocytes. Blood smears from CBCs yielding IG's will be scanned manually for concordance. If this scan disagrees with the automated IG or if promyelocytes are noted, a manual differential will be performed. Immature Gran Absolute 0.06(H) 0.00 - 0.04 x10(3)/mc L [facility] Blood 03/07/2022 5:15 AM EDT 03/07/2022 5:19 AM EDT Narrative Resulting Agency Comment Spec In Lab Alfredito Israel MD HEMATOLOGY ORDERABL ES [facility] [place] [address] * (ABNORMAL) Hemogram (03/07/2022 5:15 AM EDT) White Blood Cell 6.2 4.0 - 9.5 x10(3)/mc L [facility] Red Blood Cell 4.89 4.58 - 5.54 x10(6)/mc L [facility] Hemoglobin 14.8 13.7 - 16.5 g/dL [facility] Hematocrit 44.1 40.5 - 48.5 % [facility] Mean Cell Volume 90.2 82.9 - 93.1 fL [facility] Mean Cell Hemoglobin 30.3 27.5 - 32.1 pg [facility] Mean Cell Hemoglobin Concentration 33.6 32.0 - 35.7 g/dL [facility] Platelet 27(L) 145 - 357 x10(3)/mc L [facility] RDW Standard Deviation 44.6 36.0 - 45.0 fL [facility] RDW coefficient of variation 13.5 11.4 - 13.8 % [facility] Mean Platelet Volume 13.8(H) 7.6 - 12.9 fL [facility] NRBC% auto 0.0 % [facility] NRBC Absolute 0.000 0.000 - 0.000 x10(3)/mc L [facility] Blood 03/07/2022 5:15 AM EDT 03/07/2022 5:19 AM EDT Narrative Resulting Agency Comment Spec In Lab Alfredito Israel MD HEMATOLOGY ORDERABL ES Performing Organization Address [facility] Co de Phone Number [facility] [place] [address] * Magnesium (03/07/2022 5:15 AM EDT) Magnesium 0.71 0.69 - 1.07 mmol/L [facility] Blood 03/07/2022 5:15 AM EDT 03/07/2022 5:19 AM EDT Narrative Resulting Agency Comment Spec In Lab Jorge Deutsch MD CHEMISTRY ORDERABLES Performing Organization Address [facility] Co de Phone Number [facility] [place] [address] * (ABNORMAL) Basic Metabolic Panel (non-fasting) (03/07/2022 5:15 AM EDT) Glucose 144 65 - 199 mg/dL [facility] Comment:Diabetes: >=200 mg/d L plus symptoms Blood Urea Nitrogen 24(H) 10 - 20 mg/dL [facility] Creatinine 0.77(L) 0.80 - 1.50 mg/dL [facility] Sodium 134(L) 135 - 145 mmol/L [facility] Potassium 3.5 3.5 - 5.0 mmol/L [facility] Comment: Please note: ??Patients with WBC >100,000 may have falsely elevated Potassium levels. ??For accurate Potassium quantification in these patients send serum separator tube (gold top) for subsequent determinations. ??Contact the Clinical Chemistry Laboratory if there are any questions. Chloride 97(L) 98 - 107 mmol/L [facility] Carbon Dioxide 25 22 - 31 mmol/L [facility] Anion Gap 12 5 - 15 mmol/L [facility] Calcium 8.9 8.5 - 10.5 mg/dL [facility] Est Glomerular Filtration Rate 95 >=60 mL/min/1. 73 m?? [facility] Comment: This patient's estimated GFR [...] Deutsch MD CHEMISTRY ORDERABLES Performing Organization Address City/[facility]/ZIP Co de Phone Number [facility] [place] [address] * POCT Glucose (03/07/2022 4:15 AM EDT) Glucose, POC 131 65 - 199 mg/dL [facility] Comment: Supplemental ranges: <140 mg/dL before meals <180 mg/dL all other times of the day Blood 03/07/2022 4:15 AM EDT 03/07/2022 4:15 AM EDT Martir Rios MD POINT OF CARE TEST O RDERABLES [facility] [place] [address] * POCT Glucose (03/06/2022 11:26 PM EDT) Glucose, POC 129 65 - 199 mg/dL [facility] Comment: Supplemental ranges: <140 mg/dL before meals <180 mg/dL all other times of the day Blood 03/06/2022 11:2 6 PM EDT 03/06/2022 11:26 PM EDT Martir Rios MD POINT OF CARE TEST O ALEX Performing Organization Address [facility] Co de Phone Number [facility] [place] [address] * POCT Glucose (03/06/2022 4:11 PM EDT) Glucose, POC 143 65 - 199 mg/dL [facility] Comment: Supplemental ranges: <140 mg/dL before meals <180 mg/dL all other times of the day Blood 03/06/2022 4:11 PM EDT 03/06/2022 4:11 PM EDT Martir Rios MD POINT OF CARE TEST O ALEX Performing Organization Address [facility] de Phone Number [facility] [place] [address] * US Abdomen Limited Hepatology Protocol (03/06/2022 2:54 PM EDT) Anatomical Region Laterality Modality Abdomen Ultrasound 03/06/2022 2:51 PM EDT Impressions 03/06/2022 3:03 PM EDT The spleen appears normal in size and morphology. Electronically signed by: Paty Baca MD, [facility] ([phone]), at 03/06/2022 2:56 PM Thank you for letting us participate in the care of this patient. If you are a health care provider and have any questions regarding this report, please contact the number above. For patients who have questions, please contact the health senior resident care director that requested your imaging first. ?Paty Kurtz, Staff Physician Electronically Signed Final Report ?? 03/06/2022 03:02 pm Narrative 03/06/2022 3:03 PM EDT Abdominal ? (Signed Final 03/06/2022 03:02 pm) PATIENT INFO: ID #: ? [id number] ?: ??50 (72 yrs)(Ly) Name: ? KELLY PAZ ? Visit Date: 03/06/2022 02:51 pm ? ECHAUTE PERFORMED BY: Performed By: ? Malorie Gage RDMS Attending: ?Dayana ALEXANDRE, Paty Pabon Referred By: ?MARTIR RIOS Location: ? [place] SERVICE(S) PROVIDED: UABDLIM - Hepatology Protocol - Abdominal ? 34977 Limited Survey Single Organ or Quadrant - [id number] INDICATIONS: r/o splenic sequestration ------- SPLEEN: ------- Size (cm) ?L: ??12.3 ?AP: ??12.2 ?TV: ??4.8 Vol (ml): ?377.1 Comment: ?Normal appearance FLUID COLLECTIONS: No ascites seen. Procedure Note Paty Back MD - 03/06/2022 Abdominal (Signed Final 03/06/2022 03:02 pm) PATIENT INFO: ID #: [id number] : 50 (72 yrs)(M) Name: KELLY PAZ Visit Date: 03/06/2022 02:51 pm ECHAUTE PERFORMED BY: Performed By: Malorie Gage RDMS Attending: aPty Baca MD Referred By: MARTIR RIOS Location: [place] SERVICE(S) PROVIDED: BDLIM - Hepatology Protocol - Abdominal 56484 Limited Survey Single Organ or Quadrant - [id number] INDICATIONS: r/o splenic sequestration ------- SPLEEN: ------- [...] who have questions, please contact the health senior resident care director that requested your imaging first. Paty Kurtz, Staff Physician Electronically Signed Final Report 03/06/2022 03:02 pm Martir Rios MD IMG US GEN ORDERABLE S * (ABNORMAL) POCT Glucose (03/06/2022 11:51 AM EDT) Glucose, POC 211(H) 65 - 199 mg/dL [facility] Comment: Supplemental ranges: <140 mg/dL before meals <180 mg/dL all other times of the day Blood 03/06/2022 11:5 1 AM EDT 03/06/2022 11:51 AM EDT Martir Rios MD POINT OF CARE TEST O RDERABLES Performing Organization Address City/[facility]/ZIP Co de Phone Number [facility] [place] [address] * POCT Glucose (03/06/2022 7:17 AM EDT) Glucose, POC 171 65 - 199 mg/dL [facility] Comment: Supplemental ranges: <140 mg/dL before meals <180 mg/dL all other times of the day Blood 03/06/2022 7:17 AM EDT 03/06/2022 7:17 AM EDT Martir Rios MD POINT OF CARE TEST O RDERABLES [facility] [place] [address] * POCT Glucose (03/06/2022 4:14 AM EDT) Glucose, POC 171 65 - 199 mg/dL [facility] Comment: Supplemental ranges: <140 mg/dL before meals <180 mg/dL all other times of the day Blood 03/06/2022 4:14 AM EDT 03/06/2022 4:14 AM EDT Martir Rios MD POINT OF CARE TEST O RDERABLES [facility] [place] [address] * (ABNORMAL) Differential, Automated (03/06/2022 3:20 AM EDT) Neutrophil % 65.0 % [facility] Neutrophil Absolute 5.35 1.70 - 6.10 x10(3)/mc L [facility] Lymph % 16.4 % [facility] Lymphocytes Abs 1.4 0.9 - 3.2 x10(3)/ L [facility] Monocyte % 14.8 % [facility] Monocyte Abs 1.2(H) 0.3 - 0.9 x10(3)/ L [facility] Eos % 2.5 % [facility] Eosinophils Abs 0.2 0.0 - 0.4 x10(3)/ L [facility] Basophil % 0.8 % [facility] Baso Absolute 0.1 0.0 - 0.1 x10(3)/ L [facility] Immature Gran % 0.50 % [facility] Comment: Immature granulocytes(IG's)percentage and absolute count will include metamyelocytes, myelocytes, and promyelocytes. Blood smears from CBCs yielding IG's will be scanned manually for concordance. If this scan disagrees with the automated IG or if promyelocytes are noted, a manual differential will be performed. Immature Gran Absolute 0.04 0.00 - 0.04 x10(3)/mc L [facility] Blood 03/06/2022 3:20 AM EDT 03/06/2022 3:48 AM EDT Narrative Resulting Agency Comment Spec In Lab Alfredito Israel MD HEMATOLOGY ORDERABL ES Performing Organization Address City/[facility]/ZIP Co de Phone Number [facility] [place] [address] * (ABNORMAL) Hemogram (03/06/2022 3:20 AM EDT) White Blood Cell 8.2 4.0 - 9.5 x10(3)/mc L [facility] Red Blood Cell 5.18 4.58 - 5.54 x10(6)/mc L [facility] Hemoglobin 15.8 13.7 - 16.5 g/dL [facility] Hematocrit 48.1 40.5 - 48.5 % [facility] Mean Cell Volume 92.9 82.9 - 93.1 fL [facility] Mean Cell Hemoglobin 30.5 27.5 - 32.1 pg [facility] Mean Cell Hemoglobin Concentration 32.8 32.0 - 35.7 g/dL [facility] Platelet 37(L) 145 - 357 x10(3)/mc L [facility] RDW Standard Deviation 46.5(H) 36.0 - 45.0 fL [facility] RDW coefficient of variation 13.7 11.4 - 13.8 % [facility] Mean Platelet Volume 12.7 7.6 - 12.9 fL [facility] NRBC% auto 0.0 % [facility] NRBC Absolute 0.000 0.000 - 0.000 x10(3)/mc L [facility] Blood 03/06/2022 3:20 AM EDT 03/06/2022 3:48 AM EDT Narrative Resulting Agency Comment Spec In Lab Alfredito Israel MD HEMATOLOGY ORDERABL ES [facility] [place] [address] * Magnesium (03/06/2022 3:20 AM EDT) Magnesium 0.74 0.69 - 1.07 mmol/L [facility] Blood 03/06/2022 3:20 AM EDT 03/06/2022 3:48 AM EDT Narrative Resulting Agency Comment Spec In Lab Jorge Deutsch MD CHEMISTRY ORDERABLES [facility] [place] [address] * (ABNORMAL) Basic Metabolic Panel (non-fasting) (03/06/2022 3:20 AM EDT) Glucose 160 65 - 199 mg/dL [facility] Comment:Diabetes: >=200 mg/d L plus symptoms Blood Urea Nitrogen 25(H) 10 - 20 mg/dL [facility] Creatinine 0.87 0.80 - 1.50 mg/dL [facility] Sodium 138 135 - 145 mmol/L [facility] Potassium 4.0 3.5 - 5.0 mmol/L [facility] Comment: Please note: ??Patients with WBC >100,000 may have falsely elevated Potassium levels. ??For accurate Potassium quantification in these patients send serum separator tube (gold top) for subsequent determinations. ??Contact the Clinical Chemistry Laboratory if there are any questions. Chloride 98 98 - 107 mmol/L [facility] Carbon Dioxide 26 22 - 31 mmol/L [facility] Anion Gap 14 5 - 15 mmol/L [facility] Calcium 9.4 8.5 - 10.5 mg/dL [facility] Est Glomerular Filtration Rate 92 >=60 mL/min/1. 73 m?? [facility] Comment: This patient's estimated GFR [...] Deutsch MD CHEMISTRY ORDERABLES Performing Organization Address City/[facility]/ZIP Co de Phone Number [facility] [place] [address] * POCT Glucose (03/05/2022 11:57 PM EDT) Glucose, POC 131 65 - 199 mg/dL [facility] Comment: Supplemental ranges: <140 mg/dL before meals <180 mg/dL all other times of the day Blood 03/05/2022 11:5 7 PM EDT 03/05/2022 11:57 PM EDT Martir Rios MD POINT OF CARE TEST O RDERABLES Performing Organization Address [facility] Co de Phone Number [facility] [place] [address] * POCT Glucose (03/05/2022 8:06 PM EDT) Glucose, POC 142 65 - 199 mg/dL [facility] Comment: Supplemental ranges: <140 mg/dL before meals <180 mg/dL all other times of the day Blood 03/05/2022 8:06 PM EDT 03/05/2022 8:06 PM EDT Martir Rios MD POINT OF CARE TEST O RDERABLES Performing Organization Address [facility] Co de Phone Number [facility] [place] [address] * Potassium (03/05/2022 4:09 PM EDT) Potassium 3.9 3.5 - 5.0 mmol/L [facility] Comment: Please note: ??Patients with [...] Deutsch MD CHEMISTRY ORDERABLES Performing Organization Address City/[facility]/ZIP Co de Phone Number [facility] [place] [address] * POCT Glucose (03/05/2022 3:39 PM EDT) Glucose, POC 182 65 - 199 mg/dL [facility] Comment: Supplemental ranges: <140 mg/dL before meals <180 mg/dL all other times of the day Blood 03/05/2022 3:39 PM EDT 03/05/2022 3:39 PM EDT Martir Rios MD POINT OF CARE TEST O RDERAJESSIE Performing Organization Address [facility] Co de Phone Number [facility] [place] [address] * POCT Glucose (03/05/2022 11:31 AM EDT) Glucose, POC 180 65 - 199 mg/dL [facility] Comment: Supplemental ranges: <140 mg/dL before meals <180 mg/dL all other times of the day Blood 03/05/2022 11:3 1 AM EDT 03/05/2022 11:31 AM EDT Martir Rios MD POINT OF CARE TEST O RDERABLES Performing Organization Address City/[facility]/ZIP Co de Phone Number [facility] [place] [address] * (ABNORMAL) Hepatic Function Panel (03/05/2022 9:23 AM EDT) [facility] Protein, Total 7.0 6.1 - 8.0 g/dL [facility] Albumin 4.2 3.2 - 5.2 g/dL [facility] Aspartate Aminotransferase 24 0 - 39 unit/L [facility] Alanine Aminotransferase 25 0 - 55 unit/L [facility] Alkaline Phosphatase 89 40 - 130 unit/L [facility] Bilirubin, Total 1.7(H) 0.2 - 1.3 mg/dL [facility] Bilirubin, Direct 0.4(H) 0.0 - 0.3 mg/dL [facility] Blood Venous Draw / Unknown 03/05/2022 9:23 AM EDT 03/05/2022 9:38 AM EDT Narrative Resulting Agency Comment Spec In Lab Adeola Johnson MD CHEMISTRY ORDERABLES [facility] [place] [address] * (ABNORMAL) pro-Brain Natriuretic Peptide (03/05/2022 9:23 AM EDT) [facility] NT-proBNP 907(H) <=124 pg/mL [facility] Blood Venous Draw / Unknown 03/05/2022 9:23 AM EDT 03/05/2022 9:38 AM EDT Narrative Resulting Agency Comment Spec In Lab Adeola Johnson MD CHEMISTRY ORDERABLES [facility] [place] [address] * Potassium (03/05/2022 9:23 AM EDT) [facility] Potassium 3.8 3.5 - 5.0 mmol/L [facility] Comment: Please note: ??Patients with [...] Deutsch MD CHEMISTRY ORDERABLES Performing Organization Address [facility] Co de Phone Number [facility] [place] [address] * POCT Glucose (03/05/2022 7:16 AM EDT) [facility] Glucose, POC 194 65 - 199 mg/dL [facility] Comment: Supplemental ranges: <140 mg/dL before meals <180 mg/dL all other times of the day Blood 03/05/2022 7:16 AM EDT 03/05/2022 7:16 AM EDT Martir Rios MD POINT OF CARE TEST O RDERABLES Performing Organization Address [facility] Co de Phone Number [facility] [place] [address] * Scan, Peripheral Blood (03/05/2022 4:23 AM EDT) [facility] Plat estimate Decreased [facility] RBC Morphology Normal [facility] Blood 03/05/2022 4:23 AM EDT 03/05/2022 4:34 AM EDT Narrative Resulting Agency Comment Spec In Lab Alfredito Israel MD HEMATOLOGY ORDERABL ES Performing Organization Address [facility] Co de Phone Number [facility] [place] [address] * (ABNORMAL) Differential, Automated (03/05/2022 4:23 AM EDT) [facility] Neutrophil % 70.6 % [facility] Neutrophil Absolute 6.27(H) 1.70 - 6.10 x10(3)/mc L [facility] Lymph % 12.1 % [facility] Lymphocytes Abs 1.1 0.9 - 3.2 x10(3)/[facility] Monocyte % 14.4 % [facility] Monocyte Abs 1.3(H) 0.3 - 0.9 x10(3)/[facility] Eos % 1.8 % [facility] Eosinophils Abs 0.2 0.0 - 0.4 x10(3)/[facility] Basophil % 0.7 % [facility] Baso Absolute 0.1 0.0 - 0.1 x10(3)/[facility] Immature Gran % 0.40 % [facility] Comment: Immature granulocytes(IG's)percentage and absolute count will include metamyelocytes, myelocytes, and promyelocytes. Blood smears from CBCs yielding IG's will be scanned manually for concordance. If this scan disagrees with the automated IG or if promyelocytes are noted, a manual differential will be performed. Immature Gran Absolute 0.04 0.00 - 0.04 x10(3)/[facility] Blood 03/05/2022 4:23 AM EDT 03/05/2022 4:34 AM EDT Narrative Resulting Agency Comment Spec In Lab Alfredito Israel MD HEMATOLOGY ORDERABL ES [facility] [place] [address] * (ABNORMAL) Hemogram (03/05/2022 4:23 AM EDT) White Blood Cell 8.9 4.0 - 9.5 x10(3)/[facility] Red Blood Cell 4.89 4.58 - 5.54 x10(6)/[facility] Hemoglobin 15.0 13.7 - 16.5 g/dL [facility] Hematocrit 44.5 40.5 - 48.5 % [facility] Mean Cell Volume 91.0 82.9 - 93.1 fL [facility] Mean Cell Hemoglobin 30.7 27.5 - 32.1 pg [facility] Mean Cell Hemoglobin Concentration 33.7 32.0 - 35.7 g/dL [facility] Platelet 49(L) 145 - 357 x10(3)/mc L [facility] RDW Standard Deviation 45.2(H) 36.0 - 45.0 [facility] RDW coefficient of variation 13.5 11.4 - 13.8 % [facility] Mean Platelet Volume 12.4 7.6 - 12.9 [facility] NRBC% auto 0.0 % [facility] NRBC Absolute 0.000 0.000 - 0.000 x10(3)/mc L [facility] Blood 03/05/2022 4:23 AM EDT 03/05/2022 4:34 AM EDT Narrative Resulting Agency Comment Spec In Lab Alfredito Israel MD HEMATOLOGY ORDERABL ES Performing Organization Address [facility] Co de Phone Number [facility] [place] [address] * Magnesium (03/05/2022 4:23 AM EDT) Magnesium 0.76 0.69 - 1.07 mmol/L [facility] Blood 03/05/2022 4:23 AM EDT 03/05/2022 4:34 AM EDT Narrative Resulting Agency Comment Spec In Lab Jorge Deutsch MD CHEMISTRY ORDERABLES Performing Organization Address [facility] Co de Phone Number [facility] [place] [address] * (ABNORMAL) Basic Metabolic Panel (non-fasting) (03/05/2022 4:23 AM EDT) Glucose 206(H) 65 - 199 mg/dL [facility] Comment:Diabetes: >=200 mg/d L plus symptoms Blood Urea Nitrogen 24(H) 10 - 20 mg/dL [facility] Creatinine 0.90 0.80 - 1.50 mg/dL [facility] Sodium 136 135 - 145 mmol/L [facility] Potassium 3.6 3.5 - 5.0 mmol/L [facility] Comment: Please note: ??Patients with WBC >100,000 may have falsely elevated Potassium levels. ??For accurate Potassium quantification in these patients send serum separator tube (gold top) for subsequent determinations. ??Contact the Clinical Chemistry Laboratory if there are any questions. Chloride 95(L) 98 - 107 mmol/L [facility] Carbon Dioxide 26 22 - 31 mmol/L [facility] Anion Gap 15 5 - 15 mmol/L [facility] Calcium 9.5 8.5 - 10.5 mg/dL [facility] Est Glomerular Filtration Rate 91 >=60 mL/min/1. 73 m?? [facility] Comment: This patient's estimated GFR [...] In Lab Jorge Deutsch MD CHEMISTRY ORDERABLES [facility] [place] [address] * POCT Glucose (03/05/2022 4:20 AM EDT) Glucose, POC 190 65 - 199 mg/dL [facility] Comment: Supplemental ranges: <140 mg/dL before meals <180 mg/dL all other times of the day Blood 03/05/2022 4:20 AM EDT 03/05/2022 4:20 AM EDT Martir Rios MD POINT OF CARE TEST O RDERABLES [facility] [place] [address] * POCT Glucose (03/04/2022 11:47 PM EDT) Glucose, POC 152 65 - 199 mg/dL [facility] Comment: Supplemental ranges: <140 mg/dL before meals <180 mg/dL all other times of the day Blood 03/04/2022 11:4 7 PM EDT 03/04/2022 11:47 PM EDT Martir Rios MD POINT OF CARE TEST O RDERABLES Performing Organization Address City/[facility]/ZIP Co de Phone Number [facility] [place] [address] * POCT Glucose (03/04/2022 8:17 PM EDT) Glucose, POC 131 65 - 199 mg/dL [facility] Comment: Supplemental ranges: <140 mg/dL before meals <180 mg/dL all other times of the day Blood 03/04/2022 8:17 PM EDT 03/04/2022 8:17 PM EDT Martir Rios MD POINT OF CARE TEST O RDERABLES [facility] [place] [address] * POCT Glucose (03/04/2022 4:22 PM EDT) Glucose, POC 149 65 - 199 mg/dL [facility] Comment: Supplemental ranges: <140 mg/dL before meals <180 mg/dL all other times of the day Blood 03/04/2022 4:22 PM EDT 03/04/2022 4:22 PM EDT Martir Rios MD POINT OF CARE TEST O RDERAJESSIE Performing Organization Address City/[facility]/ZIP Co de Phone Number [facility] [place] [address] * (ABNORMAL) POCT Glucose (03/04/2022 11:21 AM EDT) Glucose, POC 204(H) 65 - 199 mg/dL [facility] Comment: Supplemental ranges: <140 mg/dL before meals <180 mg/dL all other times of the day Blood 03/04/2022 11:2 1 AM EDT 03/04/2022 11:21 AM EDT Martir Rios MD POINT OF CARE TEST O STEPHANIEERAJESSIE Performing Organization Address [facility] Co de Phone Number [facility] [place] [address] * POCT Glucose (03/04/2022 7:44 AM EDT) Glucose, POC 165 65 - 199 mg/dL [facility] Comment: Supplemental ranges: <140 mg/dL before meals <180 mg/dL all other times of the day Blood 03/04/2022 7:44 AM EDT 03/04/2022 7:44 AM EDT Martir Rios MD POINT OF CARE TEST O RDERAJESSIE Performing Organization Address City/[facility] Co de Phone Number [facility] [place] [address] * POCT Glucose (03/04/2022 5:25 AM EDT) Glucose, POC 138 65 - 199 mg/dL [facility] Comment: Supplemental ranges: <140 mg/dL before meals <180 mg/dL all other times of the day Blood 03/04/2022 5:25 AM EDT 03/04/2022 5:25 AM EDT Martir Rios MD POINT OF CARE TEST O RDERABLES Performing Organization Address City/[facility]/ZIP Co de Phone Number [facility] [place] [address] * POCT Glucose (03/04/2022 4:17 AM EDT) Glucose, POC 129 65 - 199 mg/dL [facility] Comment: Supplemental ranges: <140 mg/dL before meals <180 mg/dL all other times of the day Blood 03/04/2022 4:17 AM EDT 03/04/2022 4:17 AM EDT Martir Rios MD POINT OF CARE TEST O RDERABLES Performing Organization Address City/[facility]/ZIP Co de Phone Number [facility] [place] [address] * (ABNORMAL) Differential, Automated (03/04/2022 4:07 AM EDT) Neutrophil % 66.2 % [facility] Neutrophil Absolute 5.87 1.70 - 6.10 x10(3)/mc L [facility] Lymph % 16.6 % [facility] Lymphocytes Abs 1.5 0.9 - 3.2 x10(3)/mc L [facility] Monocyte % 13.8 % [facility] Monocyte Abs 1.2(H) 0.3 - 0.9 x10(3)/mc L [facility] Eos % 2.3 % [facility] Eosinophils Abs 0.2 0.0 - 0.4 x10(3)/mc L [facility] Basophil % 0.8 % [facility] Baso Absolute 0.1 0.0 - 0.1 x10(3)/mc L [facility] Immature Gran % 0.30 % [facility] Comment: Immature granulocytes(IG's)percentage and absolute count will include metamyelocytes, myelocytes, and promyelocytes. Blood smears from CBCs yielding IG's will be scanned manually for concordance. If this scan disagrees with the automated IG or if promyelocytes are noted, a manual differential will be performed. Immature Gran Absolute 0.03 0.00 - 0.04 x10(3)/ L [facility] Blood 03/04/2022 4:07 AM EDT 03/04/2022 4:34 AM EDT Narrative Resulting Agency Comment Spec In Lab Alfredito Israel MD HEMATOLOGY ORDERABL ES [facility] [place] [address] * (ABNORMAL) Hemogram (03/04/2022 4:07 AM EDT) White Blood Cell 8.9 4.0 - 9.5 x10(3)/ L [facility] Red Blood Cell 4.34(L) 4.58 - 5.54 x10(6)/mc L [facility] Hemoglobin 13.2(L) 13.7 - 16.5 g/dL [facility] Hematocrit 40.2(L) 40.5 - 48.5 % [facility] Mean Cell Volume 92.6 82.9 - 93.1 fL [facility] Mean Cell Hemoglobin 30.4 27.5 - 32.1 pg [facility] Mean Cell Hemoglobin Concentration 32.8 32.0 - 35.7 g/dL [facility] Platelet 56(L) 145 - 357 x10(3)/ L [facility] RDW Standard Deviation 46.7(H) 36.0 - 45.0 fL [facility] RDW coefficient of variation 13.8 11.4 - 13.8 % [facility] Mean Platelet Volume 12.7 7.6 - 12.9 fL [facility] NRBC% auto 0.0 % [facility] NRBC Absolute 0.000 0.000 - 0.000 x10(3)/mc L [facility] Blood 03/04/2022 4:07 AM EDT 03/04/2022 4:34 AM EDT Narrative Resulting Agency Comment Spec In Lab Alfredito Israel MD HEMATOLOGY ORDERABL ES Performing Organization Address [facility]/ZIP Co de Phone Number [facility] [place] [address] * Magnesium (03/04/2022 4:07 AM EDT) Magnesium 0.73 0.69 - 1.07 mmol/L [facility] Blood 03/04/2022 4:07 AM EDT 03/04/2022 4:34 AM EDT Narrative Resulting Agency Comment Spec In Lab Jorge Deutsch MD CHEMISTRY ORDERABLES Performing Organization Address [facility] Co de Phone Number [facility] [place] [address] * (ABNORMAL) Basic Metabolic Panel (non-fasting) (03/04/2022 4:07 AM EDT) Glucose 158 65 - 199 mg/dL [facility] Comment:Diabetes: >=200 mg/d L plus symptoms Blood Urea Nitrogen 24(H) 10 - 20 mg/dL [facility] Creatinine 0.90 0.80 - 1.50 mg/dL [facility] Sodium 138 135 - 145 mmol/L [facility] Potassium 3.7 3.5 - 5.0 mmol/L [facility] Comment: Please note: ??Patients with WBC >100,000 may have falsely elevated Potassium levels. ??For accurate Potassium quantification in these patients send serum separator tube (gold top) for subsequent determinations. ??Contact the Clinical Chemistry Laboratory if there are any questions. Chloride 97(L) 98 - 107 mmol/L [facility] Carbon Dioxide 26 22 - 31 mmol/L [facility] Anion Gap 15 5 - 15 mmol/L [facility] Calcium 9.3 8.5 - 10.5 mg/dL [facility] Est Glomerular Filtration Rate 91 >=60 mL/min/1. 73 m?? [facility] Comment: This patient's estimated GFR [...] Deutsch MD CHEMISTRY ORDERABLES Performing Organization Address [facility]/ZIP Co de Phone Number [facility] [place] [address] * POCT Glucose (03/04/2022 12:14 AM EDT) Glucose, POC 149 65 - 199 mg/dL [facility] Comment: Supplemental ranges: <140 mg/dL before meals <180 mg/dL all other times of the day Blood 03/04/2022 12:1 4 AM EDT 03/04/2022 12:14 AM EDT Martir Rios MD POINT OF CARE TEST O RDERABLES Performing Organization Address City/[facility]/ZIP Co de Phone Number [facility] [place] [address] * POCT Glucose (03/03/2022 7:59 PM EDT) Glucose, POC 128 65 - 199 mg/dL [facility] Comment: Supplemental ranges: <140 mg/dL before meals <180 mg/dL all other times of the day Blood 03/03/2022 7:59 PM EDT 03/03/2022 7:59 PM EDT Martir Rios MD POINT OF CARE TEST O RDERABLES Performing Organization Address [facility] Co de Phone Number [facility] [place] [address] * Potassium (03/03/2022 4:24 PM EDT) Potassium 4.3 3.5 - 5.0 mmol/L [facility] Comment: Please note: ??Patients with [...] MD CHEMISTRY ORDERAB LES Performing Organization Address [facility] Co de Phone Number [facility] [place] [address] * (ABNORMAL) Fibrinogen (03/03/2022 4:24 PM EDT) Fibrinogen 553(H) 200 - 393 mg/dL [facility] Comment: A fibrinogen level >100 mg/dL is adequate for hemostasis in most patients without underlying bleeding disorders. Blood 03/03/2022 4:24 PM EDT 03/03/2022 4:29 PM EDT Narrative Resulting Agency Comment Spec In Lab Martir Rios MD HEMATOLOGY ORDERABLE S Performing Organization Address [facility] Co de Phone Number [facility] [place] [address] * Haptoglobin (03/03/2022 4:24 PM EDT) Haptoglobin 164 30 - 200 mg/dL [facility] Comment: Haptoglobin concentrations in newborns is low to undetectable; however, adult concentrations are usually attained by 4 months of age. ??No sex-related differences for haptoglobin have been detected. Blood 03/03/2022 4:24 PM EDT 03/03/2022 4:29 PM EDT Narrative Resulting Agency Comment Spec In Lab Martir Rios MD CHEMISTRY ORDERABLES Performing Organization Address [facility] Co de Phone Number [facility] [place] [address] * (ABNORMAL) Lactate Dehydrogenase (03/03/2022 4:24 PM EDT) Lactate Dehydrogenase 239(H) 110 - 220 unit/L [facility] Blood 03/03/2022 4:24 PM EDT 03/03/2022 4:29 PM EDT Narrative Resulting Agency Comment Spec In Lab Martir Rios MD CHEMISTRY ORDERABLES Performing Organization Address [facility] Co de Phone Number [facility] [place] [address] * (ABNORMAL) Platelet count (03/03/2022 4:24 PM EDT) Platelet 66(L) 145 - 357 x10(3)/mc L [facility] Immature Plt % 7.3 0.0 - 7.4 % [facility] Comment: Limitation of the Immature Platelet Fraction (IPF)-May be less reliable when the platelet count is less than 20x564/uL due to statistical imprecision. The IPF value [...] in a decreased state of production. References: [employer] The Clinical Value of the Immature Platelet Fraction (IPF) in Cell Recovery Document Number 10-1143 01/2011 [employer] The Role of the Immature Platelet Fraction (IPF) in the Differential Diagnosis of Thrombocytopenia, Document [id number] V05 P001/13 Blood 03/03/2022 4:24 PM EDT 03/03/2022 4:29 PM EDT Narrative Resulting Agency Comment Spec In Lab Martir Rios MD HEMATOLOGY ORDERABLE S Performing Organization Address City/[facility]/ZIP Co de Phone Number [facility] [place] [address] * POCT Glucose (03/03/2022 4:21 PM EDT) [facility] Glucose, POC 157 65 - 199 mg/dL [facility] Comment: Supplemental ranges: <140 mg/dL before meals <180 mg/dL all other times of the day Blood 03/03/2022 4:21 PM EDT 03/03/2022 4:21 PM EDT Martir Rios MD POINT OF CARE TEST O RDERABLES Performing Organization Address [facility]/ZIP Co de Phone Number [facility] [place] [address] * Smear Review Report (03/03/2022 1:09 PM EDT) [facility] Smear Review Report [id number] ? Location: [facility]; C434; B The signing pathologist has (i) examined the relevant preparation(s) for the specimen(s) and (ii) rendered or confirmed the diagnosis(es). . ? Smear Review DIAGNOSIS thrombocytopenia. ??No diagnostic morphologic pathology. ?? _ Electronically signed by: ?Martin Nicole MD Verified: ??03/06/2022 18:00 ??Hematopathologist Performed at: ??-[facility] Dept. of Pathology, [place], [place] DISCUSSION The etiology of thrombocytopenia is [...] CBC and manual differential. CLINICAL INFORMATION . [facility] 03/03/2022 1:09 PM EDT Terri Tomlinson MD HEMATOLOGY ORDERABLE S Performing Organization Address [facility] Co de Phone Number [facility] [place] [address] * Scan, Peripheral Blood (03/03/2022 12:36 PM EDT) Plat estimate Decreased [facility] RBC Morphology Abnormal [facility] Momo Cells 1-5 /HPF [facility] Blood 03/03/2022 12:3 6 PM EDT 03/03/2022 12:42 PM EDT Narrative Resulting Agency Comment Spec In Lab Terri Tomlinson MD HEMATOLOGY ORDERABLE S Performing Organization Address [facility]/ZIP [place] [address] * (ABNORMAL) Differential, Automated (03/03/2022 12:36 PM EDT) Pathologist [facility] Neutrophil % 66.7 % [facility] Neutrophil Absolute 5.93 1.70 - 6.10 x10(3)/ L [facility] Lymph % 16.5 % [facility] Lymphocytes Abs 1.5 0.9 - 3.2 x10(3)/[facility] Monocyte % 13.0 % [facility] Monocyte Abs 1.2(H) 0.3 - 0.9 x10(3)/[facility] Eos % 2.6 % [facility] Eosinophils Abs 0.2 0.0 - 0.4 x10(3)/[facility] Basophil % 0.8 % [facility] Baso Absolute 0.1 0.0 - 0.1 x10(3)/[facility] Immature Gran % 0.40 % [facility] Comment: Immature granulocytes(IG's)percentage and absolute count will include metamyelocytes, myelocytes, and promyelocytes. Blood smears from CBCs yielding IG's will be scanned manually for concordance. If this scan disagrees with the automated IG or if promyelocytes are noted, a manual differential will be performed. Immature Gran Absolute 0.04 0.00 - 0.04 x10(3)/ L [facility] Blood 03/03/2022 12:3 6 PM EDT 03/03/2022 12:42 PM EDT Narrative Resulting Agency Comment Spec In Lab Terri Tomlinson MD HEMATOLOGY ORDERABLE S [facility] [place] [address] * (ABNORMAL) Hemogram (03/03/2022 12:36 PM EDT) [facility] White Blood Cell 8.9 4.0 - 9.5 x10(3)/ L [facility] Red Blood Cell 4.42(L) 4.58 - 5.54 x10(6)/mc L [facility] Hemoglobin 13.7 13.7 - 16.5 g/dL [facility] Hematocrit 42.3 40.5 - 48.5 % [facility] Mean Cell Volume 95.7(H) 82.9 - 93.1 fL [facility] Mean Cell Hemoglobin 31.0 27.5 - 32.1 pg [facility] Mean Cell Hemoglobin Concentration 32.4 32.0 - 35.7 g/dL [facility] Platelet 69(L) 145 - 357 x10(3)/ L [facility] RDW Standard Deviation 49.0(H) 36.0 - 45.0 [facility] RDW coefficient of variation 13.9(H) 11.4 - 13.8 % [facility] Mean Platelet Volume 12.4 7.6 - 12.9 [facility] NRBC% auto 0.0 % [facility] NRBC Absolute 0.000 0.000 - 0.000 x10(3)/[facility] Blood 03/03/2022 12:3 6 PM EDT 03/03/2022 12:42 PM EDT Narrative Resulting Agency Comment Spec In Lab Terri Tomlinson MD HEMATOLOGY ORDERABLE S [facility] [place] [address] * (ABNORMAL) APTT (03/03/2022 12:36 PM EDT) Partial Thromboplastin Time 46(H) 25 - 37 sec [facility] Comment: The PTT is NOT appropriate for heparin monitoring. Use the Anti-Xa level for heparin monitoring (HEP UFH) or LMWH monitoring (HEP LMW). A PTT less than 37 seconds generally indicates adequate hemostasis. Blood 03/03/2022 12:3 6 PM EDT 03/03/2022 12:42 PM EDT Narrative Resulting Agency Comment Spec In Lab Martir Rios MD HEMATOLOGY ORDERABLE S Performing Organization Address City/[facility]/ZIP Co de Phone Number [facility] [place] [address] * (ABNORMAL) Prothrombin Time (03/03/2022 12:36 PM EDT) Prothrombin Time 22.5(H) 9.4 - 12.5 sec [facility] International Normalization Ratio 2.0 [facility] Comment: An INR <2.0 indicates adequate [...] MD HEMATOLOGY ORDERABLE S Performing Organization Address [facility]/ZIP Co de Phone Number [facility] [place] [address] * Peripheral Smear Review (03/03/2022 12:36 PM EDT) Peripheral Smear Review See Comment [facility] Comment: When completed by the Pathologist, report [id number] will display under Hematopathology Reports. Blood 03/03/2022 12:3 6 PM EDT 03/03/2022 12:42 PM EDT Narrative Resulting Agency Comment Spec In Lab Martir Rios MD HEMATOLOGY ORDERABLE S [facility] [place] [address] * POCT Glucose (03/03/2022 11:37 AM EDT) Glucose, POC 184 65 - 199 mg/dL [facility] Comment: Supplemental ranges: <140 mg/dL before meals <180 mg/dL all other times of the day Blood 03/03/2022 11:3 7 AM EDT 03/03/2022 11:37 AM EDT Martir Rios MD POINT OF CARE TEST O RDERABLES Performing Organization Address City/[facility]/ZIP Co de Phone Number [facility] [place] [address] * (ABNORMAL) pro-Brain Natriuretic Peptide (03/03/2022 11:00 AM EDT) NT-proBNP 680(H) <=124 pg/mL [facility] Blood Venous Draw / Unknown 03/03/2022 11:00 AM EDT 03/03/2022 11:21 AM EDT Narrative Resulting Agency Comment Spec In Lab Terri Tomlinson MD CHEMISTRY ORDERABLES Performing Organization Address [facility] Co de Phone Number [facility] [place] [address] * Potassium (03/03/2022 11:00 AM EDT) Pathologist [facility] Potassium 4.3 3.5 - 5.0 mmol/L [facility] Comment: Please note: ??Patients with [...] Deutsch MD CHEMISTRY ORDERABLES Performing Organization Address City/[facility]/ZIP Co de Phone Number [facility] [place] [address] * Electrolytes panel (03/03/2022 11:00 AM EDT) [facility] Sodium 135 135 - 145 mmol/L [facility] Potassium 4.3 3.5 - 5.0 mmol/L [facility] Comment: Please note: ??Patients with WBC >100,000 may have falsely elevated Potassium levels. ??For accurate Potassium quantification in these patients send serum separator tube (gold top) for subsequent determinations. ??Contact the Clinical Chemistry Laboratory if there are any questions. Chloride 101 98 - 107 mmol/L [facility] Carbon Dioxide 26 22 - 31 mmol/L [facility] Anion Gap 8 5 - 15 mmol/L [facility] Blood 03/03/2022 11:0 0 AM EDT 03/03/2022 11:10 AM EDT Narrative Resulting Agency Comment Spec In Lab Jorge Deutsch MD CHEMISTRY ORDERABLES Performing Organization Address City/[facility]/ZIP Co de Phone Number [facility] [place] [address] * (ABNORMAL) POCT Glucose (03/03/2022 8:11 AM EDT) [facility] Glucose, POC 223(H) 65 - 199 mg/dL [facility] Comment: Supplemental ranges: <140 mg/dL before meals <180 mg/dL all other times of the day Blood 03/03/2022 8:11 AM EDT 03/03/2022 8:11 AM EDT Martir Rios MD POINT OF CARE TEST O RDERABLES [facility] [place] [address] * (ABNORMAL) Differential, Automated (03/03/2022 4:06 AM EDT) [facility] Neutrophil % 64.6 % [facility] Neutrophil Absolute 5.85 1.70 - 6.10 x10(3)/[facility] Lymph % 16.5 % [facility] Lymphocytes Abs 1.5 0.9 - 3.2 x10(3)/[facility] Monocyte % 14.8 % [facility] Monocyte Abs 1.3(H) 0.3 - 0.9 x10(3)/[facility] Eos % 2.8 % [facility] Eosinophils Abs 0.2 0.0 - 0.4 x10(3)/[facility] Basophil % 0.9 % [facility] Baso Absolute 0.1 0.0 - 0.1 x10(3)/[facility] Immature Gran % 0.40 % [facility] Comment: Immature granulocytes(IG's)percentage and absolute count will include metamyelocytes, myelocytes, and promyelocytes. Blood smears from CBCs yielding IG's will be scanned manually for concordance. If this scan disagrees with the automated IG or if promyelocytes are noted, a manual differential will be performed. Immature Gran Absolute 0.04 0.00 - 0.04 x10(3)/[facility] Blood 03/03/2022 4:06 AM EDT 03/03/2022 4:34 AM EDT Narrative Resulting Agency Comment Spec In Lab Alfredito Israel MD HEMATOLOGY ORDERABL ES [facility] [place] [address] * (ABNORMAL) Hemogram (03/03/2022 4:06 AM EDT) White Blood Cell 9.0 4.0 - 9.5 x10(3)/[facility] Red Blood Cell 4.24(L) 4.58 - 5.54 x10(6)/[facility] Hemoglobin 13.0(L) 13.7 - 16.5 g/dL [facility] Hematocrit 39.9(L) 40.5 - 48.5 % [facility] Mean Cell Volume 94.1(H) 82.9 - 93.1 fL [facility] Mean Cell Hemoglobin 30.7 27.5 - 32.1 pg [facility] Mean Cell Hemoglobin Concentration 32.6 32.0 - 35.7 g/dL [facility] Platelet 68(L) 145 - 357 x10(3)/mc L [facility] RDW Standard Deviation 47.4(H) 36.0 - 45.0 fL [facility] RDW coefficient of variation 13.9(H) 11.4 - 13.8 % [facility] Mean Platelet Volume 12.4 7.6 - 12.9 [facility] NRBC% auto 0.0 % [facility] NRBC Absolute 0.000 0.000 - 0.000 x10(3)/mc L [facility] Blood 03/03/2022 4:06 AM EDT 03/03/2022 4:34 AM EDT Narrative Resulting Agency Comment Spec In Lab Alfredito Israel MD HEMATOLOGY ORDERABL ES Performing Organization Address City/[facility]/ZIP Co de Phone Number [facility] [place] [address] * Magnesium (03/03/2022 4:06 AM EDT) Magnesium 0.82 0.69 - 1.07 mmol/L [facility] Blood 03/03/2022 4:06 AM EDT 03/03/2022 4:34 AM EDT Narrative Resulting Agency Comment Spec In Lab Jorge Deutsch MD CHEMISTRY ORDERABLES Performing Organization Address City/[facility]/ZIP Co de Phone Number [facility] [place] [address] * (ABNORMAL) Basic Metabolic Panel (non-fasting) (03/03/2022 4:06 AM EDT) Glucose 138 65 - 199 mg/dL [facility] Comment:Diabetes: >=200 mg/d L plus symptoms Blood Urea Nitrogen 22(H) 10 - 20 mg/dL [facility] Creatinine 0.80 0.80 - 1.50 mg/dL [facility] Sodium 137 135 - 145 mmol/L [facility] Potassium 3.7 3.5 - 5.0 mmol/L [facility] Comment: Please note: ??Patients with WBC >100,000 may have falsely elevated Potassium levels. ??For accurate Potassium quantification in these patients send serum separator tube (gold top) for subsequent determinations. ??Contact the Clinical Chemistry Laboratory if there are any questions. Chloride 100 98 - 107 mmol/L [facility] Carbon Dioxide 25 22 - 31 mmol/L [facility] Anion Gap 12 5 - 15 mmol/L [facility] Calcium 8.8 8.5 - 10.5 mg/dL [facility] Est Glomerular Filtration Rate 94 >=60 mL/min/1. 73 m?? [facility] Comment: This patient's estimated GFR [...] In Lab Jorge Deutsch MD CHEMISTRY ORDERABLES [facility] [place] [address] * POCT Glucose (03/03/2022 4:04 AM EDT) Glucose, POC 131 65 - 199 mg/dL [facility] Comment: Supplemental ranges: <140 mg/dL before meals <180 mg/dL all other times of the day Blood 03/03/2022 4:04 AM EDT 03/03/2022 4:04 AM EDT Martir Rios MD POINT OF CARE TEST O RDERAJESSIE [facility] [place] [address] * POCT Glucose (03/03/2022 12:33 AM EDT) Glucose, POC 120 65 - 199 mg/dL [facility] Comment: Supplemental ranges: <140 mg/dL before meals <180 mg/dL all other times of the day Blood 03/03/2022 12:3 3 AM EDT 03/03/2022 12:33 AM EDT Martir Rios MD POINT OF CARE TEST O ALEX [facility] [place] [address] * POCT Glucose (03/02/2022 8:32 PM EDT) Glucose, POC 132 65 - 199 mg/dL [facility] Comment: Supplemental ranges: <140 mg/dL before meals <180 mg/dL all other times of the day Blood 03/02/2022 8:32 PM EDT 03/02/2022 8:32 PM EDT Martir Rios MD POINT OF CARE TEST O RDERABLES [facility] [place] [address] * Potassium (03/02/2022 5:05 PM EDT) Potassium 4.1 3.5 - 5.0 mmol/L [facility] Comment: Please note: ??Patients with [...] Deutsch MD CHEMISTRY ORDERABLES Performing Organization Address [facility]/ZIP Co de Phone Number [facility] [place] [address] * POCT Glucose (03/02/2022 4:49 PM EDT) Glucose, POC 151 65 - 199 mg/dL [facility] Comment: Supplemental ranges: <140 mg/dL before meals <180 mg/dL all other times of the day Blood 03/02/2022 4:49 PM EDT 03/02/2022 4:49 PM EDT Martir Rios MD POINT OF CARE TEST O ALEX Performing Organization Address [facility]/ZIP Co de Phone Number [facility] [place] [address] * POCT Glucose (03/02/2022 1:26 PM EDT) Glucose, POC 168 65 - 199 mg/dL [facility] Comment: Supplemental ranges: <140 mg/dL before meals <180 mg/dL all other times of the day Blood 03/02/2022 1:26 PM EDT 03/02/2022 1:26 PM EDT Martir Rios MD POINT OF CARE TEST O ALEX Performing Organization Address City/[facility]/ZIP Co de Phone Number [facility] [place] [address] * Electrolytes panel (03/02/2022 1:25 PM EDT) [facility] Sodium 140 135 - 145 mmol/L [facility] Potassium 3.7 3.5 - 5.0 mmol/L [facility] Comment: Please note: ??Patients with WBC >100,000 may have falsely elevated Potassium levels. ??For accurate Potassium quantification in these patients send serum separator tube (gold top) for subsequent determinations. ??Contact the Clinical Chemistry Laboratory if there are any questions. Chloride 101 98 - 107 mmol/L [facility] Carbon Dioxide 28 22 - 31 mmol/L [facility] Anion Gap 11 5 - 15 mmol/L [facility] Blood 03/02/2022 1:25 PM EDT 03/02/2022 1:47 PM EDT Narrative Resulting Agency Comment Spec In Lab Jorge Deutsch MD CHEMISTRY ORDERABLES Performing Organization Address [facility] Co de Phone Number [facility] [place] [address] * (ABNORMAL) POCT Glucose (03/02/2022 12:08 PM EDT) [facility] Glucose, POC 285(H) 65 - 199 mg/dL [facility] Comment: Supplemental ranges: <140 mg/dL before meals <180 mg/dL all other times of the day Blood 03/02/2022 12:0 8 PM EDT 03/02/2022 12:08 PM EDT Martir Rios MD POINT OF CARE TEST O RDERABLES Performing Organization Address City/[facility]/ZIP Co de Phone Number [facility] [place] [address] * ECHO LMTD W/O CONTRAST W LMTD SPEC DOPP COLOR DOPP (03/02/2022 11:24 AM EDT) EF 45 HEART[facility] SYSTEM Anatomical Region Laterality Modality Cardiac Other 03/02/2022 10:4 3 AM EDT Narrative 03/02/2022 12:41 PM EDT ?[facility] ?[address] ? [place] [address] ?Voice: ?Fax: ? Echocardiogram Report Name: KELLY SHELL ? Study Date: 03/02/2022 10:43 AMBP: 127/92 mmHg ? Patient Location: [facility] CV22 A : 1950 ? Height: 67 in ? Account: [id number] Age: 72 yrs ? Weight: 245 lb Gender: Male ?BSA: 2.2 m2 Ordering Physician: MARTIR RIOS Performed By: Manisha Hopson RDCS Reason For Study: Longstanding persistent atrial fibrillation Exam Location: [facility]. Interpretation Summary Left ventricular systolic function is mildly reduced. The left ventricular ejection fraction is 45% by Mendoza's biplane. Right ventricular systolic function is mildly decreased. There is moderate to severe mitral regurgitation. Compared with the prior SYDNEY of 03/01/2022, LV systolic function has improved. Moderate to severe MR is now noted. Procedure Limited - 30618. Doppler - 28626. Color Doppler - 09368. Satisfactory quality. Left Ventricle Left ventricle is [...] Procedure Note Abbie Sauceda MD - 03/02/[address] [address] Voice: Fax: Echocardiogram Report Name: KELLY SHELL Study Date: 0:43 AMBP: 127/92 mmHg Patient Location: [address] : 1950 Height: 67 in Account: [id number] Age: 72 yrs Weight: 245 lb Gender: Male BSA: 2.2 m2 Ordering Physician: MARTIR RIOS Performed By: Manisha Hopson RDCS Reason For Study: Longstanding persistent atrial fibrillation Exam Location: [facility]. Interpretation Summary Left ventricular systolic function is mildly reduced. The leftventricular ejection fraction is 45% by Mendoza's biplane. Right ventricular systolic function is mildly decreased. There is moderate to severe mitral regurgitation. Compared with the prior SYDNEY of 03/01/2022, LV systolic function hasimproved. Moderate to severe MR is now noted. Procedure Limited - 65234. Doppler - 17563. Color Doppler - 63696. Satisfactoryquality. Left Ventricle Left ventricle is of [...] (Bezet) 513 ms MUSE SYSTEM Calculated P Rinard 57 degrees MUSE SYSTEM Calculated R Rinard -6 degrees MUSE SYSTEM Calculated T Rinard 9 degrees MUSE SYSTEM INTERPRETATION Normal sinus rhythm with sinus arrhythmia Cannot rule out Inferior infarct (cited on or before 10-JAN-2022) Abnormal ECG When compared with ECG of 01-MAR-2022 11:21, Sinus rhythm has replaced Ectopic atrial rhythm Confirmed by MD Jose David, Favio Duggan ([id number]) on 03/05/2022 10:24:58 PM MUSE SYSTEM 03/02/2022 8:42 AM EDT 03/05/2022 10:24 PM EDT Martir Rios MD ECG ORDERABLES Performing Organization Address City/[facility]/ZIP Co de Phone Number MUSE SYSTEM * Potassium (03/02/2022 8:29 AM EDT) Potassium 3.9 3.5 - 5.0 mmol/L [facility] Comment: Please note: ??Patients with WBC >100,000 may have falsely elevated Potassium levels. ??For accurate Potassium quantification in these patients send serum separator tube (gold top) for subsequent determinations. ??Contact the Clinical Chemistry Laboratory if there are any questions. Blood 03/02/2022 8:29 AM EDT 03/02/2022 8:40 AM EDT Narrative Resulting Agency Comment Spec In Lab Jorge Deutsch MD CHEMISTRY ORDERABLES [facility] [place] [address] * POCT Glucose (03/02/2022 8:04 AM EDT) Glucose, POC 157 65 - 199 mg/dL [facility] Comment: Supplemental ranges: <140 mg/dL before meals <180 mg/dL all other times of the day Blood 03/02/2022 8:04 AM EDT 03/02/2022 8:04 AM EDT Martir Rios MD POINT OF CARE TEST O RDERABLES [facility] [place] [address] * POCT Glucose (03/02/2022 3:27 AM EDT) Glucose, POC 155 65 - 199 mg/dL [facility] Comment: Supplemental ranges: <140 mg/dL before meals <180 mg/dL all other times of the day Blood 03/02/2022 3:27 AM EDT 03/02/2022 3:27 AM EDT Jorge Deutsch MD POINT OF CARE TEST O ALEX Performing Organization Address City/[facility]/ZIP Co de Phone Number [facility] [place] [address] * (ABNORMAL) Differential, Automated (03/02/2022 3:20 AM EDT) Pathologist [facility] Neutrophil % 68.7 % [facility] Neutrophil Absolute 6.46(H) 1.70 - 6.10 x10(3)/mc L [facility] Lymph % 13.7 % [facility] Lymphocytes Abs 1.3 0.9 - 3.2 x10(3)/mc L [facility] Monocyte % 14.3 % [facility] Monocyte Abs 1.4(H) 0.3 - 0.9 x10(3)/mc L [facility] Eos % 2.2 % [facility] Eosinophils Abs 0.2 0.0 - 0.4 x10(3)/mc L [facility] Basophil % 0.7 % [facility] Baso Absolute 0.1 0.0 - 0.1 x10(3)/mc L [facility] Immature Gran % 0.40 % [facility] Comment: Immature granulocytes(IG's)percentage and absolute count will include metamyelocytes, myelocytes, and promyelocytes. Blood smears from CBCs yielding IG's will be scanned manually for concordance. If this scan disagrees with the automated IG or if promyelocytes are noted, a manual differential will be performed. Immature Gran Absolute 0.04 0.00 - 0.04 x10(3)/[facility] Blood 03/02/2022 3:20 AM EDT 03/02/2022 3:37 AM EDT Narrative Resulting Agency Comment Spec In Lab Alfredito Israel MD HEMATOLOGY ORDERABL ES [facility] [place] [address] * (ABNORMAL) Hemogram (03/02/2022 3:20 AM EDT) White Blood Cell 9.4 4.0 - 9.5 x10(3)/[facility] Red Blood Cell 4.25(L) 4.58 - 5.54 x10(6)/[facility] Hemoglobin 12.9(L) 13.7 - 16.5 g/dL [facility] Hematocrit 40.2(L) 40.5 - 48.5 % [facility] Mean Cell Volume 94.6(H) 82.9 - 93.1 [facility] Mean Cell Hemoglobin 30.4 27.5 - 32.1 pg [facility] Mean Cell Hemoglobin Concentration 32.1 32.0 - 35.7 g/dL [facility] Platelet 77(L) 145 - 357 x10(3)/[facility] RDW Standard Deviation 48.5(H) 36.0 - 45.0 fL [facility] RDW coefficient of variation 14.1(H) 11.4 - 13.8 % [facility] Mean Platelet Volume 12.2 7.6 - 12.9 fL [facility] NRBC% auto 0.0 % [facility] NRBC Absolute 0.000 0.000 - 0.000 x10(3)/mc L [facility] Blood 03/02/2022 3:20 AM EDT 03/02/2022 3:37 AM EDT Narrative Resulting Agency Comment Spec In Lab Alfredito Israel MD HEMATOLOGY ORDERABL ES Performing Organization Address [facility] Co de Phone Number [facility] [place] [address] * TSH (03/02/2022 3:20 AM EDT) Thyroid Stimulating Hormone 2.59 0.27 - 4.20 mcIU/mL [facility] Comment: Reference Interval (mcIU/mL): Females: ??First Trimester: 0.23-3.88 ??Second Trimester: 0.22-3.90 ??Third Trimester: 0.44-4.66 Blood 03/02/2022 3:20 AM EDT 03/02/2022 3:37 AM EDT Narrative Resulting Agency Comment Spec In Lab Jorge Deutsch MD CHEMISTRY ORDERABLES Performing Organization Address [facility] Co de Phone Number [facility] [place] [address] * Magnesium (03/02/2022 3:20 AM EDT) Magnesium 0.94 0.69 - 1.07 mmol/L [facility] Blood 03/02/2022 3:20 AM EDT 03/02/2022 3:37 AM EDT Narrative Resulting Agency Comment Spec In Lab Jorge Deutsch MD CHEMISTRY ORDERABLES Performing Organization Address [facility]/ZIP Co de Phone Number [facility] [place] [address] * (ABNORMAL) Basic Metabolic Panel (non-fasting) (03/02/2022 3:20 AM EDT) Glucose 168 65 - 199 mg/dL [facility] Comment:Diabetes: >=200 mg/d L plus symptoms Blood Urea Nitrogen 22(H) 10 - 20 mg/dL [facility] Creatinine 0.87 0.80 - 1.50 mg/dL [facility] Sodium 138 135 - 145 mmol/L [facility] Potassium 3.8 3.5 - 5.0 mmol/L [facility] Comment: Please note: ??Patients with WBC >100,000 may have falsely elevated Potassium levels. ??For accurate Potassium quantification in these patients send serum separator tube (gold top) for subsequent determinations. ??Contact the Clinical Chemistry Laboratory if there are any questions. Chloride 100 98 - 107 mmol/L [facility] Carbon Dioxide 28 22 - 31 mmol/L [facility] Anion Gap 10 5 - 15 mmol/L [facility] Calcium 8.5 8.5 - 10.5 mg/dL [facility] Est Glomerular Filtration Rate 92 >=60 mL/min/1. 73 m?? [facility] Comment: This patient's estimated GFR [...] In Lab Jorge Deutsch MD CHEMISTRY ORDERABLES [facility] [place] [address] * POCT Glucose (03/01/2022 11:45 PM EDT) Glucose, POC 188 65 - 199 mg/dL [facility] Comment: Supplemental ranges: <140 mg/dL before meals <180 mg/dL all other times of the day Blood 03/01/2022 11:4 5 PM EDT 03/01/2022 11:45 PM EDT Jorge Deutsch MD POINT OF CARE TEST O RDERAJESSIE [facility] [place] [address] * POCT Glucose (03/01/2022 10:30 PM EDT) Glucose, POC 187 65 - 199 mg/dL [facility] Comment: Supplemental ranges: <140 mg/dL before meals <180 mg/dL all other times of the day Blood 03/01/2022 10:3 0 PM EDT 03/01/2022 10:30 PM EDT Jorge Deutsch MD POINT OF CARE TEST O RDERAJESSIE [facility] [place] [address] * (ABNORMAL) POCT Glucose (03/01/2022 7:43 PM EDT) Glucose, POC 286(H) 65 - 199 mg/dL [facility] Comment: Supplemental ranges: <140 mg/dL before meals <180 mg/dL all other times of the day Blood 03/01/2022 7:43 PM EDT 03/01/2022 7:43 PM EDT Jorge Deutsch MD POINT OF CARE TEST O RDERAJESSIE [facility] [place] [address] * POCT Glucose (03/01/2022 5:01 PM EDT) Glucose, POC 190 65 - 199 mg/dL [facility] Comment: Supplemental ranges: <140 mg/dL before meals <180 mg/dL all other times of the day Blood 03/01/2022 5:01 PM EDT 03/01/2022 5:01 PM EDT Jorge Deutsch MD POINT OF CARE TEST O RDERABLES Performing Organization Address [facility]/ZIP Co de Phone Number [facility] [place] [address] * Electrolytes panel (03/01/2022 12:57 PM EDT) Sodium 140 135 - 145 mmol/L [facility] Potassium 4.2 3.5 - 5.0 mmol/L [facility] Comment: Please note: ??Patients with WBC >100,000 may have falsely elevated Potassium levels. ??For accurate Potassium quantification in these patients send serum separator tube (gold top) for subsequent determinations. ??Contact the Clinical Chemistry Laboratory if there are any questions. Chloride 102 98 - 107 mmol/L [facility] Carbon Dioxide 30 22 - 31 mmol/L [facility] Anion Gap 8 5 - 15 mmol/L [facility] Blood 03/01/2022 12:5 7 PM EDT 03/01/2022 12:57 PM EDT Narrative Resulting Agency Comment Spec In Lab Jorge Deutsch MD CHEMISTRY ORDERABLES Performing Organization Address [facility]/ZIP Co de Phone Number [facility] [place] [address] * SYDNEY W LMTD SPECTRAL DOPPLER COLOR DOPPLER AND CARDIOVERSION (03/01/2022 11:27 AM EDT) Anatomical Region Laterality Modality Cardiac Other 03/01/2022 10:1 8 AM EDT Narrative 03/01/2022 5:25 PM EDT ?[facility] ?[address] ? [place] [address] ?Voice: ?Fax: ? Transesophageal Echocardiogram Report Name: KELLY SHELL ? Study Date: 03/01/2022 10:18 AM ? Patient Location: [facility] CV22 A : 1950 ? Height: 170 cm ? Account: [id number] Age: 72 yrs ? Weight: 112 kg Gender: Male ?BSA: 2.2 m2 Ordering Physician: JORGE DEUTSCH Referring Physician: Jorge Deutsch Performed By: Lali Sam MD Reason For Study: afib Interpreting Fellow: Lali Sam. Exam Location: [facility]. Interpretation Summary No thrombus or clot [...] Procedure Note Jarad López MD - 03/01/2022 [place] [address] [address] [place] [address] Voice: Fax: Transesophageal Echocardiogram Report Name: KELLY SHELL Study Date: 210:18 AM Patient Location: [address] : 1950 Height: 170 cm Account: [id number] Age: 72 yrs Weight: 112 kg Gender: Male BSA: 2.2 m2 Ordering Physician: JORGE DEUTSCH Referring Physician: Jorge Deutsch Performed By: Lali Sam MD Reason For Study: afib Interpreting Fellow: Lali Sam. Exam Location: [facility]. Interpretation Summary No thrombus or clot [...] Glucose, POC 108 65 - 199 mg/dL [facility] Comment: Supplemental ranges: <140 mg/dL before meals <180 mg/dL all other times of the day Blood 03/01/2022 11:0 2 AM EDT 03/01/2022 11:02 AM EDT Jorge Deutsch MD POINT OF CARE TEST O RDLONG [place] [facility] [place] [address] * POCT Glucose (03/01/2022 8:04 AM EDT) Glucose, POC 102 65 - 199 mg/dL [facility] Comment: Supplemental ranges: <140 mg/dL before meals <180 mg/dL all other times of the day Blood 03/01/2022 8:04 AM EDT 03/01/2022 8:04 AM EDT Jorge Deutsch MD POINT OF CARE TEST O RDSCOTT Performing Organization Address City/[facility]/ZIP Co de Phone Number [facility] [place] [address] * POCT Glucose (03/01/2022 4:38 AM EDT) Pathologist [facility] Glucose, POC 121 65 - 199 mg/dL [facility] Comment: Supplemental ranges: <140 mg/dL before meals <180 mg/dL all other times of the day Blood 03/01/2022 4:38 AM EDT 03/01/2022 4:38 AM EDT Jorge Deutsch MD POINT OF CARE TEST O ALEX Performing Organization Address [facility] Co de Phone Number [facility] [place] [address] * (ABNORMAL) Differential, Automated (03/01/2022 4:30 AM EDT) [facility] Neutrophil % 67.0 % [facility] Neutrophil Absolute 6.62(H) 1.70 - 6.10 x10(3)/mc L [facility] Lymph % 16.6 % [facility] Lymphocytes Abs 1.6 0.9 - 3.2 x10(3)/mc L [facility] Monocyte % 12.6 % [facility] Monocyte Abs 1.2(H) 0.3 - 0.9 x10(3)/mc L [facility] Eos % 2.8 % [facility] Eosinophils Abs 0.3 0.0 - 0.4 x10(3)/mc L [facility] Basophil % 0.6 % [facility] Baso Absolute 0.1 0.0 - 0.1 x10(3)/mc L [facility] Immature Gran % 0.40 % [facility] Comment: Immature granulocytes(IG's)percentage and absolute count will include metamyelocytes, myelocytes, and promyelocytes. Blood smears from CBCs yielding IG's will be scanned manually for concordance. If this scan disagrees with the automated IG or if promyelocytes are noted, a manual differential will be performed. Immature Gran Absolute 0.04 0.00 - 0.04 x10(3)/ L [facility] Blood 03/01/2022 4:30 AM EDT 03/01/2022 4:47 AM EDT Narrative Resulting Agency Comment Spec In Lab Alfredito Israel MD HEMATOLOGY ORDERABL ES [facility] [place] [address] * (ABNORMAL) Hemogram (03/01/2022 4:30 AM EDT) White Blood Cell 9.9(H) 4.0 - 9.5 x10(3)/ L [facility] Red Blood Cell 4.14(L) 4.58 - 5.54 x10(6)/ L [facility] Hemoglobin 12.9(L) 13.7 - 16.5 g/dL [facility] Hematocrit 39.5(L) 40.5 - 48.5 % [facility] Mean Cell Volume 95.4(H) 82.9 - 93.1 fL [facility] Mean Cell Hemoglobin 31.2 27.5 - 32.1 pg [facility] Mean Cell Hemoglobin Concentration 32.7 32.0 - 35.7 g/dL [facility] Platelet 90(L) 145 - 357 x10(3)/ L [facility] RDW Standard Deviation 48.5(H) 36.0 - 45.0 fL [facility] RDW coefficient of variation 13.9(H) 11.4 - 13.8 % [facility] Mean Platelet Volume 12.7 7.6 - 12.9 fL [facility] NRBC% auto 0.0 % [facility] NRBC Absolute 0.000 0.000 - 0.000 x10(3)/ L [facility] Blood 03/01/2022 4:30 AM EDT 03/01/2022 4:47 AM EDT Narrative Resulting Agency Comment Spec In Lab Alfredito Israel MD HEMATOLOGY ORDERABL ES Performing Organization Address [facility] Co de Phone Number [facility] [place] [address] * TSH (03/01/2022 4:30 AM EDT) Thyroid Stimulating Hormone 3.49 0.27 - 4.20 mcIU/mL [facility] Comment: Reference Interval (mcIU/mL): Females: ??First Trimester: 0.23-3.88 ??Second Trimester: 0.22-3.90 ??Third Trimester: 0.44-4.66 Blood 03/01/2022 4:30 AM EDT 03/01/2022 4:47 AM EDT Narrative Resulting Agency Comment Spec In Lab Jorge Deutsch MD CHEMISTRY ORDERABLES Performing Organization Address [facility] de Phone Number [facility] [place] [address] * Magnesium (03/01/2022 4:30 AM EDT) Magnesium 0.88 0.69 - 1.07 mmol/L [facility] Blood 03/01/2022 4:30 AM EDT 03/01/2022 4:47 AM EDT Narrative Resulting Agency Comment Spec In Lab Jorge Deutsch MD CHEMISTRY ORDERABLES Performing Organization Address [facility] Co de Phone Number [facility] [place] [address] * (ABNORMAL) Basic Metabolic Panel (non-fasting) (03/01/2022 4:30 AM EDT) Glucose 131 65 - 199 mg/dL [facility] Comment:Diabetes: >=200 mg/d L plus symptoms Blood Urea Nitrogen 24(H) 10 - 20 mg/dL [facility] Creatinine 0.96 0.80 - 1.50 mg/dL [facility] Sodium 142 135 - 145 mmol/L [facility] Potassium 3.6 3.5 - 5.0 mmol/L [facility] Comment: Please note: ??Patients with WBC >100,000 may have falsely elevated Potassium levels. ??For accurate Potassium quantification in these patients send serum separator tube (gold top) for subsequent determinations. ??Contact the Clinical Chemistry Laboratory if there are any questions. Chloride 103 98 - 107 mmol/L [facility] Carbon Dioxide 27 22 - 31 mmol/L [facility] Anion Gap 12 5 - 15 mmol/L [facility] Calcium 8.6 8.5 - 10.5 mg/dL [facility] Est Glomerular Filtration Rate 84 >=60 mL/min/1. 73 m?? [facility] Comment: This patient's estimated GFR [...] In Lab Jorge Deutsch MD CHEMISTRY ORDERABLES [facility] [place] [address] * (ABNORMAL) Hemoglobin A1c (03/01/2022 4:30 AM EDT) Hemoglobin A1c 7.5(H) 4.3 - 5.6 % [facility] Comment: Reference Range: 4.3 - [...] [id number] Estimated Average Glucose See note mg/dL [facility] Comment: Estimated Average Glucose not [...] into estimated average glucose values. ??Diabetes Care 2008:31(8):9043-4550. Blood 03/01/2022 4:30 AM EDT 03/01/2022 4:47 AM EDT Narrative Resulting Agency Comment Spec In Lab Jorge Deutsch MD CHEMISTRY ORDERABLES Performing Organization Address City/State/[facility] Co de Phone Number [facility] [place] [address] * POCT Glucose (03/01/2022 12:21 AM EDT) Glucose, POC 167 65 - 199 mg/dL [facility] Comment: Supplemental ranges: <140 mg/dL before meals <180 mg/dL all other times of the day Blood 03/01/2022 12:2 1 AM EDT 03/01/2022 12:21 AM EDT Jorge Deutsch MD POINT OF CARE TEST O RDERABLES Performing Organization Address [facility] Co de Phone Number [facility] [place] [address] * Magnesium (02/28/2022 9:30 PM EDT) Magnesium 0.86 0.69 - 1.07 mmol/L [facility] Blood 02/28/2022 9:30 PM EDT 02/28/2022 9:40 PM EDT Narrative Resulting Agency Comment Spec In Lab Jorge Deutsch MD CHEMISTRY ORDERABLES Performing Organization Address [facility] Co de Phone Number [facility] [place] [address] * Lactate, whole blood, send to lab ([facility]) (02/28/2022 9:30 PM EDT) [facility] Lactate WB 2.0 0.5 - 2.2 mmol/L [facility] Blood 02/28/2022 9:30 PM EDT 02/28/2022 9:39 PM EDT Narrative Resulting Agency Comment Spec In Lab Jorge Deutsch MD CHEMISTRY ORDERABLES Performing Organization Address [facility]/ZIP Co de Phone Number [facility] [place] [address] * (ABNORMAL) Basic Metabolic Panel (non-fasting) (02/28/2022 9:30 PM EDT) Glucose 166 65 - 199 mg/dL [facility] Comment:Diabetes: >=200 mg/d L plus symptoms Blood Urea Nitrogen 26(H) 10 - 20 mg/dL [facility] Creatinine 0.87 0.80 - 1.50 mg/dL [facility] Sodium 144 135 - 145 mmol/L [facility] Potassium 3.9 3.5 - 5.0 mmol/L [facility] Comment: Please note: ??Patients with WBC >100,000 may have falsely elevated Potassium levels. ??For accurate Potassium quantification in these patients send serum separator tube (gold top) for subsequent determinations. ??Contact the Clinical Chemistry Laboratory if there are any questions. Chloride 105 98 - 107 mmol/L [facility] Carbon Dioxide 24 22 - 31 mmol/L [facility] Anion Gap 15 5 - 15 mmol/L [facility] Calcium 8.6 8.5 - 10.5 mg/dL [facility] Est Glomerular Filtration Rate 92 >=60 mL/min/1. 73 m?? [facility] Comment: This patient's estimated GFR [...] In Lab Jorge Deutsch MD CHEMISTRY ORDERABLES [facility] [place] [address] * Lipid Panel (Reflex Direct LDL) (02/28/2022 9:30 PM EDT) Cholesterol, Total 96 mg/dL [facility] Comment: Lower Risk: <200 mg/dL Average Risk: 200-239 mg/dL Higher Risk: >de=748 mg/dL Triglyceride 67 mg/dL [facility] Comment: Average Risk/Lower Risk: <150 mg/dL Borderline High Risk: 150-199 mg/dL High Risk: 200-499 mg/dL Very High Risk: >bj=966 mg/dL HDL Cholesterol 26 mg/dL [facility] Comment: Males: ?? Higher Risk: <40 mg/dL Females: ?? Higher Risk: <50 mg/dL LDL Cholesterol 57 mg/dL [facility] Comment: Lowest Risk: <100 mg/dL Lower Risk: 100-129 mg/dL Borderline High Risk: 130-159 mg/dL High Risk: 160-189 mg/dL Very High Risk: >ns=971 mg/dL Cholesterol/HDL Ratio 3.7 ratio [facility] Lipid Interpretation See Note [facility] Comment: Lipid management should be guided by a patient? s ASCVD risk, goals and preferences. ACC/AHA Guidelines recommend high intensity statin if clinical ASCVD or LDL greater than or equal to 190 mg/dL. http://Eurocept.com/YVX-TLO-Higgpcxcf Adults aged 40-75 with LDL 70-189 mg/dL should have their 10 year ASCVD risk estimated with the ACC/AHA ASCVD risk welding estimator http://tools.acc.org/WLZSP-Mtrd-Kopohhkvj/ Statin should be discussed if risk greater [...] Deutsch MD CHEMISTRY ORDERABLES Performing Organization Address [facility]/ZIP Co de Phone Number [facility] [place] [address] * POCT Glucose (02/28/2022 8:31 PM EDT) Glucose, POC 154 65 - 199 mg/dL [facility] Comment: Supplemental ranges: <140 mg/dL before meals <180 mg/dL all other times of the day Blood 02/28/2022 8:31 PM EDT 02/28/2022 8:31 PM EDT Jorge Deutsch MD POINT OF CARE TEST O RDERABLES Performing Organization Address [facility] Co de Phone Number [facility] [place] [address] * (ABNORMAL) BLOOD GAS 2 VENOUS (02/28/2022 4:16 PM EDT) pH, Venous 7.39 7.32 - 7.42 [facility] PCO2, Venous 41 41 - 51 mmHg [facility] PO2, Venous 22(L) 25 - 40 mmHg [facility] Bicarbonate, Venous 24.4 mmol/L [facility] Base Excess, Venous -0.5 mmol/L [facility] Hgb Blood Gas 13.7 13.7 - 16.5 g/dL [facility] Oxyhemoglobin, Venous 31.7 % [facility] Carboxyhemoglob in, Venous 1.8 % [facility] Comment: Nonsmokers: 0.5-1.5% COHB Smokers: Variable, but usually less than 10% Toxic: 20-30% COHB Lethal: Greater than 60% COHB Methemoglobin, Venous 0.8 <=1.5 % [facility] Na Whole Blood 140 135 - 145 mmol/L [facility] K Whole Blood 3.9 3.5 - 5.0 mmol/L [facility] Comment: Please note: Patients with WBC >100,000 may have falsely elevated Potassium levels. Contact the Clinical Chemistry Laboratory if there are any questions. ICa Whole Blood 1.16 1.15 - 1.33 mmol/L [facility] Comment: Note: ??Total bilirubin higher than 20 mg/dL may lead to falsely low ionized calcium. CL Whole Blood 102 98 - 107 mmol/L [facility] Gluc Whole Bld 111 65 - 199 mg/dL [facility] Comment:Diabetes: >=200 mg/d L plus symptoms Lactate WB 2.4(H) 0.5 - 2.2 mmol/L [facility] Blood Gas Source Venous [facility] Blood 02/28/2022 4:16 PM EDT 02/28/2022 4:16 PM EDT Jorge Deutsch MD POINT OF CARE TEST O RDERABLES [facility] [place] [address] * ECHO COMPLETE W CONTRAST (02/28/2022 3:43 PM EDT) EF 23 HEARTLAB SYSTEM Anatomical Region Laterality Modality Cardiac Other 02/28/2022 2:39 PM EDT Narrative 02/28/2022 4:13 PM EDT ?[facility] ?[address] ? [place] [address] ?Voice: ?Fax: ? Echocardiogram Report Name: KELLY SHELL ? Study Date: 02/28/2022 02:39 PMBP: 118/88 mmHg ? Patient Location: ED ED24 ED24 : 1950 ? Height: 67 in ? Account: [id number] Age: 72 yrs ? Weight: 249 lb Gender: Male ?BSA: 2.2 m2 Ordering Physician: MORGAN EVERETT Performed By: Adilene Mcfarland RDCS Reason For Study: Chronic AFIB Exam Location: [facility]. Interpretation Summary Patient in atrial fibrillation [...] the previous echo performed on 12/12/2021 (at [facility]), biventricular systolic function has decreased. Procedure Complete-[id number]. Image enhancement Optison was used for left [...] Procedure Note Martir Rios MD - 02/28/2022 [facility] [address] [place] [address] Voice: Fax: Echocardiogram Report Name: KELLY SHELL Study Date: 202:39 PMBP: 118/88 mmHg Patient Location: [place] [address] : 1950 Height: 67 in Account: [id number] Age: 72 yrs Weight: 249 lb Gender: Male BSA: 2.2 m2 Ordering Physician: MORGAN EVERETT Performed By: Adilene Mcfarland RDCS Reason For Study: Chronic AFIB Exam Location: [facility]. Interpretation Summary Patient in atrial fibrillation [...] the previous echo performed on 12/12/2021 (at [facility]),biventricular systolic function has decreased. Procedure Complete-[id number]. Image enhancement Optison was used for left [...] RBC, Urine 6(H) 0 - 3 /HPF [facility] WBC, Urine 2 0 - 3 /HPF [facility] Squamous Epithelial Cells Raw Data, Urine 1 <=4 /HPF [facility] Hyaline Casts, Urine 3(H) 0 - 2 /LPF [facility] Clean Catch Urine 02/28/2022 2:15 PM EDT 02/28/2022 3:09 PM EDT Narrative Resulting Agency Comment Spec In Lab Brittany Live MD URINE ORDERABLES [facility] [place] [id number] * (ABNORMAL) Urinalysis with reflex Culture (02/28/2022 2:15 PM EDT) Glucose, Urine Dipstick Negative Negative mg/dL [facility] Protein, Urine Dipstick 30(A) Negative mg/dL [facility] Bilirubin, Urine Dipstick Negative Negative mg/dL [facility] Comment: Clinical correlation required for positive Urine Bilirubin results as false positive may occur with some drugs and drug related products. If a false positive is suspected a serum total bilirubin should be considered if clinically indicated. Urobilinogen, Urine Dipstick Normal Normal mg/dL [facility] pH, Urn (dipstick) 5.0 5.0 - 8.0 [facility] Blood, Urine Dipstick Negative Negative mg/dL [facility] Ketone, Urine Dipstick Trace(A) Negative mg/dL [facility] Nitrite, Urine Dipstick Negative Negative [facility] Leukocytes, Urine Dipstick Negative Negative [facility] Appearance, Urine Dipstick Clear Clear [facility] Specific [place] Urine Automated 1.020 1.005 - 1.030 [facility] Color, Urine Dipstick Yellow Yellow [facility] Reflex to Culture No [facility] Clean Catch Urine 02/28/2022 2:15 PM EDT 02/28/2022 3:09 PM EDT Narrative Resulting Agency Comment Spec In Lab Morgan Everett MD URINE ORDERABLES Performing Organization Address City/State/[facility] Co wv Phone Number [facility] [place] [address] * US Cardiac (POCUS) (02/28/2022 12:56 PM [...] confirmatory study was done:: Results:: CPT Code 97620:Limited Basic Cardiac (95646) Electronically Signed by the following Performing: ?on [...] confirmatory study was done:: Results:: CPT Code 18931:Limited Basic Cardiac (36048) Electronically Signed by the following Performing: on [...] who have questions please contact the health senior resident care director that requested your imaging first. ? Electronically signed by: Marie Iqbal MD, [facility] ([phone]), at 02/28/2022 12:45 PM Narrative 02/28/2022 12:45 PM EDT EXAMINATION: XR [...] patients who have questions please contactthe health senior resident care director that requested your imaging first. Electronically signed by: Marie Iqbal MD, [facility]([phone]), at 02/28/2022 12:45 PM Morgan Everett MD IMG DX ORDERABLES * [...] who have questions please contact the health senior resident care director that requested your imaging first. ? Electronically signed by: Gael Salinas [facility] ([phone]), at 02/28/2022 12:21 PM Narrative 02/28/2022 12:21 PM EDT EXAMINATION: CT [...] patients who have questions please contactthe health senior resident care director that requested your imaging first. Electronically signed by: Gael Salinas [facility]([phone]), at 02/28/2022 12:21 PM Morgan Everett MD IMG CT ORDERABLES * POCT Glucose (02/28/2022 11:42 AM EDT) Glucose, POC 134 65 - 199 mg/dL [facility] Comment: Supplemental ranges: <140 mg/dL before meals <180 mg/dL all other times of the day Blood 02/28/2022 11:4 2 AM EDT 02/28/2022 11:42 AM EDT Morgan Everett MD POINT OF CARE TEST ORDERABLES [facility] [place] [address] * (ABNORMAL) Hepatic Function Panel (02/28/2022 11:12 AM EDT) Protein, Total 6.8 6.1 - 8.0 g/dL [facility] Albumin 4.3 3.2 - 5.2 g/dL [facility] Aspartate Aminotransferase 24 0 - 39 unit/L [facility] Alanine Aminotransferase 20 0 - 55 unit/L [facility] Alkaline Phosphatase 78 40 - 130 unit/L [facility] Bilirubin, Total 1.7(H) 0.2 - 1.3 mg/dL [facility] Bilirubin, Direct 0.4(H) 0.0 - 0.3 mg/dL [facility] Blood Venous Draw / Unknown 02/28/2022 11:12 AM EDT 02/28/2022 12:09 PM EDT Narrative Resulting Agency Comment Spec In Lab Alfredito Israel MD CHEMISTRY ORDERABLE S [facility] [place] [address] * (ABNORMAL) pro-Brain Natriuretic Peptide (02/28/2022 11:12 AM EDT) NT-proBNP 1,491(H) <=124 pg/mL [facility] Blood Venous Draw / Unknown 02/28/2022 11:12 AM EDT 02/28/2022 12:09 PM EDT Narrative Resulting Agency Comment Spec In Lab Brittany Live MD CHEMISTRY ORDERABLE S Performing Organization Address City/[facility]/ZIP Co de Phone Number [facility] [place] [address] * TSH (02/28/2022 11:12 AM EDT) Thyroid Stimulating Hormone 3.59 0.27 - 4.20 mcIU/mL [facility] Comment: Reference Interval (mcIU/mL): Females: ??First Trimester: 0.23-3.88 ??Second Trimester: 0.22-3.90 ??Third Trimester: 0.44-4.66 Blood Venous Draw / Unknown 02/28/2022 11:12 AM EDT 02/28/2022 12:09 PM EDT Narrative Resulting Agency Comment Spec In Lab Brittany Live MD CHEMISTRY ORDERABLE S Performing Organization Address City/[facility]/ZIP Co de Phone Number [facility] [place] [address] * (ABNORMAL) Differential, Automated (02/28/2022 11:12 AM EDT) Neutrophil % 71.3 % [facility] Neutrophil Absolute 8.25(H) 1.70 - 6.10 x10(3)/mc L [facility] Lymph % 15.5 % [facility] Lymphocytes Abs 1.8 0.9 - 3.2 x10(3)/ L [facility] Monocyte % 11.8 % [facility] Monocyte Abs 1.4(H) 0.3 - 0.9 x10(3)/ L [facility] Eos % 0.3 % [facility] Eosinophils Abs 0.0 0.0 - 0.4 x10(3)/[facility] Basophil % 0.6 % [facility] Baso Absolute 0.1 0.0 - 0.1 x10(3)/ L [facility] Immature Gran % 0.50 % [facility] Comment: Immature granulocytes(IG's)percentage and absolute count will include metamyelocytes, myelocytes, and promyelocytes. Blood smears from CBCs yielding IG's will be scanned manually for concordance. If this scan disagrees with the automated IG or if promyelocytes are noted, a manual differential will be performed. Immature Gran Absolute 0.06(H) 0.00 - 0.04 x10(3)/ L [facility] Blood 02/28/2022 11:1 2 AM EDT 02/28/2022 11:39 AM EDT Narrative Resulting Agency Comment Spec In Lab Morgan Everett MD HEMATOLOGY ORDERAB LES Performing Organization Address City/[facility]/ZIP Co de Phone Number [facility] [place] [address] * (ABNORMAL) Hemogram (02/28/2022 11:12 AM EDT) White Blood Cell 11.6(H) 4.0 - 9.5 x10(3)/mc L [facility] Red Blood Cell 4.48(L) 4.58 - 5.54 x10(6)/mc L [facility] Hemoglobin 13.5(L) 13.7 - 16.5 g/dL [facility] Hematocrit 43.2 40.5 - 48.5 % [facility] Mean Cell Volume 96.4(H) 82.9 - 93.1 fL [facility] Mean Cell Hemoglobin 30.1 27.5 - 32.1 pg [facility] Mean Cell Hemoglobin Concentration 31.3(L) 32.0 - 35.7 g/dL [facility] Platelet 108(L) 145 - 357 x10(3)/[facility] RDW Standard Deviation 49.1(H) 36.0 - 45.0 [facility] RDW coefficient of variation 14.0(H) 11.4 - 13.8 % [facility] Mean Platelet Volume 12.6 7.6 - 12.9 [facility] NRBC% auto 0.3 % [facility] NRBC Absolute 0.030(H) 0.000 - 0.000 x10(3)/mc L [facility] Blood 02/28/2022 11:1 2 AM EDT 02/28/2022 11:39 AM EDT Narrative Resulting Agency Comment Spec In Lab Morgan Everett MD HEMATOLOGY ORDERAB LES [facility] [place] [address] * Phosphorus (02/28/2022 11:12 AM EDT) Phosphorus 3.7 2.5 - 4.5 mg/dL [facility] Blood 02/28/2022 11:1 2 AM EDT 02/28/2022 11:39 AM EDT Narrative Resulting Agency Comment Spec In Lab Morgan Everett MD CHEMISTRY ORDERABL ES Performing Organization Address [facility] Co de Phone Number [facility] [place] [address] * Magnesium (02/28/2022 11:12 AM EDT) Magnesium 0.77 0.69 - 1.07 mmol/L [facility] Blood 02/28/2022 11:1 2 AM EDT 02/28/2022 11:39 AM EDT Narrative Resulting Agency Comment Spec In Lab Morgan Everett MD CHEMISTRY ORDERABL ES Performing Organization Address [facility] Co de Phone Number [facility] [place] [address] * (ABNORMAL) Basic Metabolic Panel (non-fasting) (02/28/2022 11:12 AM EDT) Glucose 150 65 - 199 mg/dL [facility] Comment:Diabetes: >=200 mg/d L plus symptoms Blood Urea Nitrogen 29(H) 10 - 20 mg/dL [facility] Creatinine 0.95 0.80 - 1.50 mg/dL [facility] Sodium 139 135 - 145 mmol/L [facility] Potassium 4.5 3.5 - 5.0 mmol/L [facility] Comment: Please note: ??Patients with WBC >100,000 may have falsely elevated Potassium levels. ??For accurate Potassium quantification in these patients send serum separator tube (gold top) for subsequent determinations. ??Contact the Clinical Chemistry Laboratory if there are any questions. Chloride 102 98 - 107 mmol/L [facility] Carbon Dioxide 23 22 - 31 mmol/L [facility] Anion Gap 14 5 - 15 mmol/L [facility] Calcium 9.2 8.5 - 10.5 mg/dL [facility] Est Glomerular Filtration Rate 85 >=60 mL/min/1. 73 m?? [facility] Comment: This patient's estimated GFR [...] MD CHEMISTRY ORDERABL ES Performing Organization Address [facility] Co de Phone Number [facility] [place] [address] * EKG 12 Lead (02/28/2022 10:50 AM EDT) Ventricular rate 153 BPM MUSE SYSTEM Atrial Rate 156 BPM MUSE SYSTEM QRS Duration 82 ms MUSE SYSTEM Q-T Interval 322 ms MUSE SYSTEM QTC Calculated (Bezet) 514 ms MUSE SYSTEM Calculated R Rinard -21 degrees MUSE SYSTEM Calculated T Rinard -4 degrees MUSE SYSTEM INTERPRETATION Atrial fibrillation with rapid ventricular response Inferior infarct (cited on or before 10-JAN-2022) Abnormal ECG When compared with ECG of 10-JAN-2022 16:23, Vent. rate has increased BY ??59 BPM Confirmed by MD Chris Danette ([id number]) on 03/01/2022 8:37:57 AM MUSE SYSTEM 02/28/2022 10:5 0 AM EDT 03/01/2022 8:37 AM EDT Morgan Everett MD ECG ORDERABLES Performing Organization Address [facility] Co de Phone Number MUSE SYSTEM documented [...] g = 1,000 mg/kg/dose ? 66.1 kg [place] weight), Intravenous, ONCE, 1 dose, On Sat03/06/22 [...] require approval by P&T Chair or On-Call Real Estate Specialist. Immune thrombocytopenia (ITP), What is the maximum rate of administration? 0.033 mL/kg/min (1.98 mL/kg/hour) for: ITP / Age 65 years or older / Renal Insufficiency New Bag 03/06/2022 6:32 PM EDT 65 g 50 mL/hr immune globulin (Privigen) (100 mg/mL) infusion 65 g 65 g (rounded from 66.1 g = 1,000 mg/kg/dose ? 66.1 kg [place] weight), Intravenous, ONCE, 1 dose, On Sat03/07/22 [...] require approval by P&T Chair or On-Call Real Estate Specialist. Immune thrombocytopenia (ITP), What is the maximum [...] Routine documented in this encounter Care Teams Dietetic Intern Relationship Specialty Start Date End Date Domenica Atkins, LAUREN PCP - General Family Medicine 11/21/21 documented as of this encounter
--- OUTSIDE RECORDS SUMMARY | 2024-07-10 10:32 | XMS_ITS | Clinical Summary ---
Author Organization [facility] Address [address] [place] [address] Care Team Providers Care Leveling Machine Operator Name Role Phone Unknown, Provider Primary Care Provider Unava ilable Social History Tobacco Use Types Packs/Day Years [...] COVID-19 Vaccine (2022-24 season) 2023 Care Teams Leveling Machine Operator Relationship Specialty Start Date End Date Unknown, Provider, PCP - General 12/01/20
--- OUTSIDE RECORDS SUMMARY | 2024-07-10 10:32 | XMS_ITS | Encounter Summary ---
Author Organization [facility] Address [address] [place] [address] Care Team Providers Care Crm Specialist Name Role Phone Unknown, Provider Primary Care Provider Unava ilable Encounter Details Date Type Department Care Team (Late st Contact Info) Description 12/26/2020 Lab Requisition [facility] Pathology & Laboratory Medicine - [address] [address] Manisha Rosales, [address] [place], [place] [id number] Encounter for other general examination Social History [...] EXCISION: - Thrombosed hemorrhoids 12/29/2020 15:07 EDT [facility] Attestation By the signature below, the attending physician certifies that they have 1) personally conducted a gross and/or microscopic examination of the described specimen(s), and/or personally interpreted the results of laboratory testing of the described specimen(s), and 2) personally rendered or confirmed the above diagnosis. 12/29/2020 15:07 EDT [facility] at 1507 Clinical History Thrombosed mass of anus 12/29/2020 15:07 EDT [facility] Gross Description A. Received in formalin labelled with proper patient identification (initials V, J) and thrombosed mass of anus are multiple fragments of pink-king to red-brown soft tissue (2.0 x 1.8 x 1.0 cm in aggregate). The specimen is entirely submitted in A1. ALISON STEINBERG(ASCP) 12/26/2020 16:20 12/29/2020 15:07 EDT [facility] Performing Lab [facility] 12/29/2020 15:07 T [facility] Scanned Images 12/29/2020 15:07 EDT [facility] Tissue ENTIRE ANUS / Unknown 12/26/2020 11:15 EDT 12/26/2020 16:10 EDT Manisha Rosales DO PATHOLOGY ORDERABLES [facility] [address] [place] [address] documented in this encounter Visit Diagnoses Diagnosis Encounter for other general examination documented in this encounter Care Teams Crm Specialist Relationship Specialty Start Date End Date Unknown, Provider, PCP - General 12/01/20 documented as of this encounter
--- OUTSIDE RECORDS SUMMARY | 2024-07-10 10:32 | XMS_ITS | Encounter Summary ---
[place] [address] Care Team Providers Care Drier Tender Name Role Phone Milly Domenica Padgett APRN Primary Care Provider [phone] Encounter Details Date Type Department Care Team (Late st Contact Info) Description 12/28/2021 Telephone Cardiology at [address] [phone] Damaris Bowen, RN Social History Tobacco Use [...] EDTSummary: Pre Procedure Call: AFlutter Ablation EP ACIDIZER WATER WELL COORDINATION CHECKLIST TC to pt to relay pre procedure instructions. Unable to reach at number on file. LVM asking for call back at earliest convenience. Also sent instructions to active Patient Portal via Intellione message Patient Name: Wilber Shell Patient Performing Composition Board Press Operator: Curtis Arredondo Referring Provider: N/A Date of Procedure: 01/02/22 Arrival Time/ Case Time: 6:30 am / 7:30 am Check In Location: Clinical Rn Desk 4W Date Patient was Called: 12/28/21 Procedure: Atrial Flutter Ablation Company: [employer] Orders: Yes Lab Orders: Yes Anesthesia: GA [...] overnight , understands that they will need subway train driver on day of discharge Notified pt that Saez catheter may be placed on day of procedure depending on type & duration of case. documented in this encounter Plan of Treatment Upcoming Encounters Date Type Department Care Team (Late st Contact Info) Description 12/23/2024 3:30 PM EDT Office Visit Cardiology at [address] [phone] Carlos Eduardo Quan, ALISON [facility] [place] [address] documented as of this encounter Visit Diagnoses Not on filedocumented in this encounter Care Teams Drier Tender Relationship Specialty Start Date End Date Domenica Atkins APRN PCP - General Family Medicine 11/21/21 documented as of this encounter
--- OUTSIDE RECORDS SUMMARY | 2024-07-10 10:32 | XMS_ITS | Encounter Summary ---
[place] [address] Care Team Providers Care Middle School Librarian Name Role Phone Milly Domenica Padgett APRN Primary Care Provider [phone] Encounter Details Date Type Department Care Team (Late st Contact Info) Description 02/26/2022 Telephone Cardiology at [address] [phone] Natali Davison, RN Social History Tobacco Use [...] forwarded to ALISON Gil, and to our Cardroom Worker, as her father would like to be [...] PM EDT Office Visit Cardiology at [address] [place] [address] Carlos Eduardo Quan PA [facility] [place] [address] documented as of this encounter Visit Diagnoses Not on filedocumented in this encounter Care Teams Middle School Librarian Relationship Specialty Start Date End Date Domenica Atkins APRN PCP - General Family Medicine 11/21/21 documented as of this encounter
--- OUTSIDE RECORDS SUMMARY | 2024-07-10 10:32 | XMS_ITS | Encounter Summary ---
Author Organization [facility] Address [address] [place] [address] Care Team Providers Care Packing Clerk Name Role Phone Unknown, Provider Primary Care Provider Jad bravo Encounter Details Date Type Department Care Team (Late st Contact Info) Description 03/14/2023 Lab Requisition [facility] Pathology & Laboratory Medicine - [address] [address] Cristi Ordonez MD [address] [place] [address], [address] [place], [place] [id number] Acute cholecystitis with chronic cholecystitis Social History [...] management options, if applicable. 03/15/2023 12:41 EDT [facility] Final Diagnosis A. 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 03/15/2023 12:41 [facility] Attestation By the signature below, the attending physician certifies that they have 1) personally conducted a gross and/or microscopic examination of the described specimen(s), and/or personally interpreted the results of laboratory testing of the described specimen(s), and 2) personally rendered or confirmed the above diagnosis. 03/15/2023 12:41 [facility] at 1241 Clinical History Acute cholecystitis 03/15/2023 12:41 [facility] Gross Description A. Received [...] node are submitted in A1 and 2 cash application representative wall cross sections are submitted in A2. ALISON REDDY(ASC) 03/14/2023 9:56 03/15/2023 12:41 T [facility] Performing Lab [facility] 03/15/2023 12:41 T [facility] Scanned Images 03/15/2023 12:41 [facility] Tissue ENTIRE GALLBLADDER / Unknown 03/13/2023 13:16 EDT 03/14/2023 8:23 EDT Cristi Ordonez MD PATHOLOGY ORDERABLES [facility] [address] [place] [address] documented in this encounter Visit Diagnoses Diagnosis Acute cholecystitis with chronic cholecystitis Acute and chronic cholecystitis documented in this encounter Care Teams Packing Clerk Relationship Specialty Start Date End Date Unknown, Provider, PCP - General 12/01/20 documented as of this encounter
--- OUTSIDE RECORDS SUMMARY | 2024-07-10 10:32 | XMS_ITS | Encounter Summary ---
Author Organization [facility] Address [address] [place] [address] Care Team Providers Care Monument Stonecutter Name Role Phone Unknown, Provider Primary Care Provider Unabolivar ilable Encounter Details Date Type Department Care Team (Late st Contact Info) Description 05/09/2022 Lab Requisition [facility] Pathology & Laboratory Medicine - [address] [address] Outr Resulting Lab, Provider Social History Tobacco [...] PSA 0.3 <=6.5 ng/mL 05/09/2022 22:58 EDT [facility] Blood VENOUS BLOOD / Unknown 05/09/2022 10:25 EDT 05/09/2022 21:55 EDT Narrative [facility] - 05/09/2022 22:58 EDT NOTE: Serum PSA concentration should not be interpreted as absolute evidence for the presence or absence of malignant disease. Assayed on Siemens ADVIA Clever [place] XPT using chemiluminescent technology.??Values obtained by using different assay methods cannot be used interchangeably. Provider Outr Resulting Lab CHEMISTRY & BLOOD GAS ORDERABLES [facility] [address] [place] [address] documented in this encounter Visit Diagnoses Not on filedocumented in this encounter Care Teams Monument Stonecutter Relationship Specialty Start Date End Date Unknown, Provider, PCP - General 12/01/20 documented as of this encounter
--- OUTSIDE RECORDS SUMMARY | 2024-07-10 10:32 | XMS_ITS | Encounter Summary ---
[place] [address] Care Team Providers Care Clinical Sociologist Name Role Phone Domenica Atkins APRN Primary Care Provider [phone] Encounter Details Date Type Department Care Team (Late st Contact Info) Description 12/20/2021 Telephone Cardiology at [address] [phone] Domenica Bailey LNA Social History Tobacco Use [...] [facility] as well: *Echo at [facility] recently 12/12 *Holter just turned in most likely will be unavailable for visit he stated. *Ekg 12/22 *Xray of heart 12/22 *Indu Iqbal Publishing Manager, recent Consultation documented in this encounter Plan of Treatment Upcoming Encounters Date Type Department Care Team (Late st Contact Info) Description 12/23/2024 3:30 PM EDT Office Visit Cardiology at [address] [place] [address] Carlos Eduardo Quan, ALISON [facility] [place] [address] documented as of this encounter Visit Diagnoses Not on filedocumented in this encounter Care Teams Clinical Sociologist Relationship Specialty Start Date End Date Domenica Atkins APRN PCP - General Family Medicine 11/21/21 documented as of this encounter
--- OUTSIDE RECORDS SUMMARY | 2024-07-10 10:32 | XMS_ITS | Encounter Summary ---
Author Organization [facility] [place] [address] Care Team Providers Care Machine Operator Replanter Name Role Phone Domenica Atkins Dayron AGUILAR Primary Care Provider [phone] Reason for Visit * Auth/Cert Specialty Diagnoses / Procedures Referred By Contac t Referred To Contact Diagnoses Atrial fibrillation, unspecified type [I48.91] Procedures ELECTROPHYSIOLOGY PROCEDURE Referral ID Status Reason Start Date Expiration Date Visits Re quested Visits Authorized [id number] 1 1 Encounter Details Date Type Department Care Team (Late st Contact Info) Description 01/02/2022 7:39 AM EDT Anesthesia Event [place] [address] [address] [facility] [address] [place] [address] Anesthesia Record Procedure Summary Procedure Name Responsible [...] 0715; median cubital vein (antecubital fossa), left; pjrq-oce-cajjlt catheter system; Anatomical Landmarks; 20 gauge; Tato Enriuqez RN; distraction, tolerated well, appears comfortable; 0; [...] dorsal arch vein (top of hand), right; gllg-glf-czzoma catheter system; 16 gauge; MD Emile; 01/02/22; 1401 01/02/22 0759 by Malu Erazo CRNA 01/02/22 1401 by Luz Woodall RN Arterial Line 01/02/22; 0807; radi al artery, left; 20 gauge; Anatomical Landmarks; continuous blood pressure monitoring; V Kacey MANUFACTURING PLANT MANAGER; Sterile Prep, Sterile Gloves; 01/02/22; 1401 01/02/22 0807 by Malu Erazo CRNA 01/02/22 1401 by Luz Woodall RN LDA Cath/EP Sheath 01/02/22; 0836; 7 Fr ench (Fr); Right; Femoral; Venous 01/02/22 0836 by Luz Cortez RN 01/02/22 1005 by Luz Cortez RN LDA Cath/EP Sheath 01/02/22; 0837; 8.5 Wolof (Fr); Right; Femoral; Venous 01/02/22 0837 by [...] Procedure Summary Date: 01/02/22 Room / Location: [facility] A-LAB ROOM [address] [place] [address] LABS Anesthesia Start: 738 Anesthesia Stop: 1039 Procedure: ELECTROPHYSIOLOGY PROCEDURE (N/A ) Diagnosis: Atrial fibrillation, unspecified type (Atrial fibrillation, unspecified type [I48.91]) Providers: Curtis Arredondo MD Responsible Provider: Jake Baptiste DO Anesthesia Type: general ASA Status: 2 All Anesthesia Providers: Anesthesiologist: Jake Baptiste DO MANUFACTURING PLANT MANAGER: Malu Erazo CRNA Vitals Value Taken Time BP 93/60 01/02/22 1130 Temp 36.9 ??C (98.4 ??F) 01/02/22 1130 Pulse 69 01/02/22 1142 Resp 13 01/02/22 1142 SpO2 93 % 01/02/22 1142 Pain Level 0 01/02/22 1130 Vitals shown include unvalidated device data. Patient Location: PACU/[facility] Level of Consciousness: Conscious but Sleepy Pain [...] PM EDT Office Visit Cardiology at [address] [place] [address] Carlos Eduardo Quan PA [facility] [place] [address] documented as of this encounter Visit Diagnoses [...] mg documented in this encounter Care Teams Machine Operator Replanter Relationship Specialty Start Date End Date Domenica Atkins APRN PCP - General Family Medicine 11/21/21 documented as of this encounter
--- OUTSIDE RECORDS SUMMARY | 2024-07-10 10:32 | XMS_ITS | Encounter Summary ---
[place] [address] Care Team Providers Care Shake Splitter Name Role Phone Milly Domenica Dayron AGUILAR Primary Care Provider [phone] Encounter Details Date Type Department Care Team (Late st Contact Info) Description 02/19/2022 [place] [address] [place] [address] Social History Tobacco Use Types Packs/Day Years [...] PM EDT Office Visit Cardiology at [address] [place] [address] Carlos Eduardo Quan PA [facility] [place] [address] documented as of this encounter Visit Diagnoses Not on filedocumented in this encounter Care Teams Shake Splitter Relationship Specialty Start Date End Date Domenica Atkins, LAUREN PCP - General Family Medicine 11/21/21 documented as of this encounter
--- OUTSIDE RECORDS SUMMARY | 2024-07-10 10:32 | XMS_ITS | Encounter Summary ---
Author Organization [facility] [place] [address] Care Team Providers Care Safety Advisor Name Role Phone Domenica Atkins Dayron AGUILAR Primary Care Provider Encounter Details Date Type Department Care Team (Late st Contact Info) Description 12/21/2021 Telephone Cardiology at [address] [phone] Dora Palacio Social History Tobacco Use Types Packs/Day Years Used Date Smoking Tobacco: Never Assessed Sex and Gender Information Value Date Recorded Sex Assigned at Not on file Gender Identity Not on file Sexual Orientation Not on file documented as of this encounter Miscellaneous Notes * Telephone Encounter - Dora Palacio - 12/21/2021 8:36 AM EDT Records request faxed to [facility] at [phone]. Dora Palacio EP Scheduling documented in this encounter Plan of Treatment Upcoming Encounters Date Type Department Care Team (Late st Contact Info) Description 12/23/2024 3:30 PM EDT Office Visit Cardiology at [address] [phone] Carlos Eduardo Quan, PA [facility] [place] [address] documented as of this encounter Visit Diagnoses Not on filedocumented in this encounter Care Teams Safety Advisor Relationship Specialty Start Date End Date Domenica Atkins APRN PCP - General Family Medicine 11/21/21 documented as of this encounter
--- OUTSIDE RECORDS SUMMARY | 2024-07-10 10:32 | XMS_ITS | Encounter Summary ---
Author Organization [facility] [place] [address] Care Team Providers Care Wallpaper Hanger Helper Name Role Phone RayDomenica tate Dayron AGUILAR Primary Care Provider [phone] Reason for Visit * Consultation (Urgent) - Closed Specialty Diagnoses / Procedures Referred By Contact Referred To Contact Electrophysiology / Cardiology Diagnoses Atrial fibrillation, unspecified type Atrial flutter, unspecified type afib, aflutter Evan Guzman MD [address] [place] [address] [place] [address] [address] Referral ID Status Reason Start Date Expiration Date V isits Requested Visits Authorized [id number] Closed Consult, Test & Treat 11/21/2021 11/21/2022 6 6 Encounter Details Date Type Department Care Team (Late st Contact Info) Description 12/27/2021 11:00 AM EDT Office Visit Cardiology at [address] [phone] Ryder Arredondo MD [facility] [place] [address] Beau Julian MD [facility] [place] [address] Atrial fibrillation, unspecified type (Primary Dx); Typical [...] from the original note were not included. [facility] [place] [address] ELECTROPHYSIOLOGY OUTPATIENT NOTE REFERRING PROVIDER: Domenica Atkins [...] He 'keeps busy', hauling firewood, shovels snow. [place] whacks. Repairs things around the house. Family [...] PM EDT Office Visit Cardiology at [address] [place] [address] Carlos Eduardo Quan PA [facility] [place] [address] documented as of this encounter Procedures Procedure Name Priority Date/Time Associated Diagnosis Comments EKG 12-LEAD Routine 12/27/2021 10:55 AM EDT Atrial fibrillation, unspecified type documented in this encounter Results * (ABNORMAL) Basic Metabolic Panel (non-fasting) (01/02/2022 7:15 AM EDT) Glucose 200(H) 65 - 199 mg/dL [facility] Comment:Diabetes: >=200 mg/d L plus symptoms Blood Urea Nitrogen 18 10 - 20 mg/dL [facility] Creatinine 0.89 0.80 - 1.50 mg/dL [facility] Sodium 140 135 - 145 mmol/L [facility] Potassium 4.5 3.5 - 5.0 mmol/L [facility] Comment: Please note: ??Patients with WBC >100,000 may have falsely elevated Potassium levels. ??For accurate Potassium quantification in these patients send serum separator tube (gold top) for subsequent determinations. ??Contact the Clinical Chemistry Laboratory if there are any questions. Chloride 105 98 - 107 mmol/L [facility] Carbon Dioxide 23 22 - 31 mmol/L [facility] Anion Gap 12 5 - 15 mmol/L [facility] Calcium 9.1 8.5 - 10.5 mg/dL [facility] Est Glomerular Filtration Rate 86 >=60 mL/min/1. 73 m?? [facility] Comment: This [...] Arredondo MD CHEMISTRY ORDERABLES Performing Organization Address City/[facility]/ZIP Co de Phone Number [facility] [place] [address] * EKG 12 Lead (12/27/2021 10:55 AM EDT) Ventricular rate 151 BPM MUSE SYSTEM QRS Duration 102 ms MUSE SYSTEM Q-T Interval 314 ms MUSE SYSTEM QTC Calculated (Bezet) 497 ms MUSE SYSTEM Calculated R [place] -16 degrees MUSE SYSTEM Calculated T [place] 11 degrees MUSE SYSTEM INTERPRETATION Atrial flutter [...] flutter documented in this encounter Care Teams Wallpaper Hanger Helper Relationship Specialty Start Date End Date Domenica Atkins APRN PCP - General Family Medicine 3/22/22 documented as of this encounter
--- OUTSIDE RECORDS SUMMARY | 2024-07-10 10:32 | XMS_ITS | Encounter Summary ---
[place] [address] Care Team Providers Care Hospital Food Service Worker Name Role Phone Milly Domenica Padgett APRN Primary Care Provider [phone] Reason for Visit * Reason Onset Date Comments Pre Procedure Call 02/16/2022 Encounter Details Date Type Department Care Team (Late st Contact Info) Description 02/16/2022 Telephone Cardiology at [address] [phone] Damaris Bowen RN Pre Procedure [...] 3:30 PM EDT Office Visit Cardiology at [address] [phone] Carlos Eduardo Quan PA [facility] [place] [address] documented as of this encounter Visit Diagnoses Not on filedocumented in this encounter Care Teams Hospital Food Service Worker Relationship Specialty Start Date End Date Domenica Atkins APRN PCP - General Family Medicine 11/21/21 documented as of this encounter
--- OUTSIDE RECORDS SUMMARY | 2024-07-10 10:32 | XMS_ITS | Encounter Summary ---
[place] [address] Care Team Providers Care Rotary Drill Rig Operator Name Role Phone Domenica Atkins Dayron AGUILAR Primary Care Provider [phone] Encounter Details Date Type Department Care Team (Late st Contact Info) Description 12/28/2021 Telephone [place] [address] Justina Telles Social History Tobacco Use Types [...] EDT 12/28/21 - patient is scheduled at [facility] in [facility] for COVID test - will bring results to surgery documented in this encounter Plan of Treatment Upcoming Encounters Date Type Department Care Team (Late st Contact Info) Description 12/23/2024 3:30 PM EDT Office Visit Cardiology at [address] [phone] Carlos Eduardo Quan, ALISON [facility] [place] [address] documented as of this encounter Visit Diagnoses Not on filedocumented in this encounter Care Teams Rotary Drill Rig Operator Relationship Specialty Start Date End Date Domenica Atkins APRN PCP - General Family Medicine 11/21/21 documented as of this encounter
--- OUTSIDE RECORDS SUMMARY | 2024-07-10 10:32 | XMS_ITS | Encounter Summary ---
Author Organization [facility] [place] [address] Care Team Providers Care Oil Lease Broker Name Role Phone RayDomenica tate Dayron AGUILAR Primary Care Provider [phone] Reason for Visit * Auth/Cert Specialty Diagnoses / Procedures Referred By Contac t Referred To Contact Diagnoses Atrial fibrillation, unspecified type [I48.91] Procedures ELECTROPHYSIOLOGY PROCEDURE Referral ID Status Reason Start Date Expiration Date Visits Re quested Visits Authorized [id number] 1 1 Encounter Details Date Type Department Care Team (Latest Contact Info) Description 01/02/2022 6:26 AM EDT - 01/02/2022 2:30 PM EDT Hospital Encounter [place] [id number] Ryder Arredondo MD [facility] [place] [address] Atrial fibrillation, unspecified type Discharge Disposition: Home [...] of any new medications initiated at the [facility]. The patient should be aware and informed [...] his/her physician or the Cardiac Electrophysiology Service ([phone]). documented in this encounter Medications at Time [...] 3:30 PM EDT Office Visit Cardiology at [address] [place] [address] Carlos Eduardo Quan PA [facility] [place] [address] documented as of this encounter Procedures Procedure [...] Glucose, POC 144 65 - 199 mg/dL [facility] Comment: Supplemental ranges: <140 mg/dL before meals <180 mg/dL all other times of the day Blood 01/02/2022 12:0 1 PM EDT 01/02/2022 12:01 PM EDT Ryder Arredondo MD POINT OF CARE TEST O RDERABLES [facility] [place] [address] * ELECTROPHYSIOLOGY PROCEDURE (01/02/2022 8:27 AM EDT) Anatomical Region Laterality Modality Other Impressions 01/06/2022 11:53 AM EDT : ? ? Successful ablation of typical atrial flutter DISCUSSION: 1. Continue metoprolol succinate at 75 mg daily. 2. Continue apixaban 5mg twice daily for anticoagulation. 3. Follow up in clinic with either Dr. Julian or Dr. Arredondo. I was the felt hat mellowing machine operator for the procedure, present for the entire procedure and personally edited this note RYDER ARREDONDO MD Narrative 01/06/2022 11:53 AM EDT Ablation of Atrial flutter: Electrophysiology Study, Mapping (CARTO), Cardioversion, Ablation Indication: Symptomatic atrial flutter Forestry Adviser: Ryder WAGONER.[employer]. Fellow: Beau Julian MD Procedure: [...] lesion set. Intervals: Cycle length: 724 ms [place] 172 ms QRS 93 ms QT 344 ms HV 54 ms (taken in atrial flutter) Conduction AVWB 320ms AERP 600/220ms AVNERP <600/220ms Ryder Arredondo MD EP PROCEDURE ORDERAB LES * Differential, Automated (01/02/2022 7:15 AM EDT) Neutrophil % 60.2 % [facility] Neutrophil Absolute 5.32 1.70 - 6.10 x10(3)/[facility] Lymph % 25.6 % [facility] Lymphocytes Abs 2.3 0.9 - 3.2 x10(3)/[facility] Monocyte % 10.5 % [facility] Monocyte Abs 0.9 0.3 - 0.9 x10(3)/[facility] Eos % 2.6 % [facility] Eosinophils Abs 0.2 0.0 - 0.4 x10(3)/[facility] Basophil % 0.8 % [facility] Baso Absolute 0.1 0.0 - 0.1 x10(3)/[facility] Immature Gran % 0.30 % [facility] Comment: Immature granulocytes(IG's)percentage and absolute count will include metamyelocytes, myelocytes, and promyelocytes. Blood smears from CBCs yielding IG's will be scanned manually for concordance. If this scan disagrees with the automated IG or if promyelocytes are noted, a manual differential will be performed. Immature Gran Absolute 0.03 0.00 - 0.04 x10(3)/[facility] Blood 01/02/2022 7:15 AM EDT 01/02/2022 7:32 AM EDT Narrative Resulting Agency Comment Spec In Lab Beau Juilan MD HEMATOLOGY ORDERAB LES [facility] [place] [address] * (ABNORMAL) Hemogram (01/02/2022 7:15 AM EDT) [facility] White Blood Cell 8.8 4.0 - 9.5 x10(3)/mc L [facility] Red Blood Cell 4.42(L) 4.58 - 5.54 x10(6)/mc L [facility] Hemoglobin 14.0 13.7 - 16.5 g/dL [facility] Hematocrit 42.5 40.5 - 48.5 % [facility] Mean Cell Volume 96.2(H) 82.9 - 93.1 [facility] Mean Cell Hemoglobin 31.7 27.5 - 32.1 pg [facility] Mean Cell Hemoglobin Concentration 32.9 32.0 - 35.7 g/dL [facility] Platelet 179 145 - 357 x10(3)/mc L [facility] RDW Standard Deviation 46.4(H) 36.0 - 45.0 [facility] RDW coefficient of variation 13.1 11.4 - 13.8 % [facility] Mean Platelet Volume 11.3 7.6 - 12.9 [facility] NRBC% auto 0.0 % [facility] NRBC Absolute 0.000 0.000 - 0.000 x10(3)/mc L [facility] Blood 01/02/2022 7:15 AM EDT 01/02/2022 7:32 AM EDT Narrative Resulting Agency Comment Spec In Lab Beau Julian MD HEMATOLOGY ORDERAB LES [facility] [place] [address] * (ABNORMAL) Basic Metabolic Panel (non-fasting) (01/02/2022 7:15 AM EDT) Glucose 200(H) 65 - 199 mg/dL [facility] Comment:Diabetes: >=200 mg/d L plus symptoms Blood Urea Nitrogen 18 10 - 20 mg/dL [facility] Creatinine 0.89 0.80 - 1.50 mg/dL [facility] Sodium 140 135 - 145 [...] questions. Chloride 105 98 - 107 mmol/L [facility] Carbon Dioxide 23 22 - 31 mmol/L [facility] Anion Gap 12 5 - 15 mmol/L [facility] Calcium 9.1 8.5 - 10.5 mg/dL [facility] Est Glomerular Filtration Rate 86 >=60 mL/min/1. 73 m?? [facility] Comment: This patient? s estimated [...] Arredondo MD CHEMISTRY ORDERABLES Performing Organization Address City/State/[facility] Co de Phone Number [facility] [place] [address] * POCT Glucose (01/02/2022 6:51 AM EDT) Glucose, POC 186 65 - 199 mg/dL [facility] Comment: Supplemental ranges: <140 mg/dL before meals <180 mg/dL all other times of the day Blood 01/02/2022 6:51 AM EDT 01/02/2022 6:51 AM EDT Ryder Arredondo MD POINT OF CARE TEST O RDERABLES [facility] [place] [address] documented in this encounter Visit Diagnoses Diagnosis [...] Routine documented in this encounter Care Teams Oil Lease Broker Relationship Specialty Start Date End Date Domenica Atkins APRN PCP - General Family Medicine 11/21/21 documented as of this encounter
--- OUTSIDE RECORDS SUMMARY | 2024-07-10 10:32 | XMS_ITS | Referral Summary ---
Author Organization [facility] Address [address] [place] [address] Care Team Providers Care Insurance Case Manager Name Role Phone Unknown, Provider Primary [...] of Treatment Not on file Care Teams Insurance Case Manager Relationship Specialty Start Date End Date Unknown, Provider, PCP - General 12/01/20
--- OUTSIDE RECORDS SUMMARY | 2024-07-10 10:32 | XMS_ITS | Encounter Summary ---
Author Organization [facility] Address [address] [place] [address] Care Team Providers Care Chartered Financial Analyst Name Role Phone Unknown, Provider Primary Care Provider Unava ilable Encounter Details Date Type Department Care Team (Late st Contact Info) Description 02/28/[address] [facility] Pathology & Laboratory Medicine - [address] [address] Outr Resulting Lab, Provider Social [...] PSA 0.3 <=6.5 ng/mL 02/28/2024 23:13 EDT [facility] Blood VENOUS BLOOD / Unknown 02/28/2024 9:35 EDT 02/28/2024 22:23 EDT Narrative [facility] - 02/28/2024 23:13 EDT NOTE: Serum PSA concentration should not be interpreted as absolute evidence for the presence or absence of malignant disease. Assayed on Siemens ADVIA [employer] XPT using chemiluminescent technology.??Values obtained by using different assay methods cannot be used interchangeably. Provider Outr Resulting Lab CHEMISTRY & BLOOD GAS ORDERABLES [facility] [address] [place] [address] documented in this encounter Visit Diagnoses Not on filedocumented in this encounter Care Teams Chartered Financial Analyst Relationship Specialty Start Date End Date Unknown, Provider, PCP - General 12/01/20 documented as of this encounter
--- OUTSIDE RECORDS SUMMARY | 2024-07-10 10:32 | XMS_ITS | Encounter Summary ---
[place] [address] Care Team Providers Care On Site Services Specialist Name Role Phone Domenica Atkins Dayron AGUILAR Primary Care Provider [phone] Reason for Referral * Consultation (Urgent) - Closed Specialty Diagnoses / Procedures Referred By Contact Referred To Contact Electrophysiology / Cardiology Diagnoses Atrial fibrillation, unspecified type Atrial flutter, unspecified type afib, aflutter Evan Guzman MD [address] [place] [address] [facility] Cardiology [address] [place] [phone] Referral ID Status Reason Start Date Expiration Date V isits Requested Visits Authorized [id number] Closed Consult, Test & Treat 11/21/2021 11/21/2022 6 6 Encounter Details Date Type Department Care Team (Latest Contact Info) Description 11/21/2021 Transcribe Orders eDH Incoming Referrals [phone] Evan Guzman MD [address] [place] [id number] Atrial fibrillation, unspecified type; Atrial flutter, unspecified [...] 3:30 PM EDT Office Visit Cardiology at [address] [place] [address] Carlos Eduardo Quan, [facility] [place] [address] Scheduled Referrals Name Type Priority Associated Diagnoses Order Schedule Referral to Cardiac Electrophysiology Outpatient Referral Routine Atrial fibrillation, unspecified type Atrial flutter, unspecified type Ordered: 11/21/2021 documented as of this encounter Visit Diagnoses Diagnosis Atrial fibrillation, unspecified type Atrial flutter, unspecified type documented in this encounter Care Teams On Site Services Specialist Relationship Specialty Start Date End Date Domenica Atkins, LABORER [employer] PCP - General Family Medicine 11/21/21 documented as of this encounter
--- OUTSIDE RECORDS SUMMARY | 2024-07-10 10:32 | XMS_ITS | Encounter Summary ---
Author Organization [facility] [place] [address] Care Team Providers Care Plastic Tool Maker Name Role Phone Domenica Atkins Dayron AGUILAR Primary Care Provider [phone] Reason for Visit * Consultation (Urgent) - Closed Specialty Diagnoses / Procedures Referred By Contact Referred To Contact Electrophysiology / Cardiology Diagnoses Atrial fibrillation, unspecified type Atrial flutter, unspecified type afib, aflutter Evan Guzman MD [address] [place] [address] [place] [address] [address] Referral ID Status Reason Start Date Expiration Date V isits Requested Visits Authorized [id number] Closed Consult, Test & Treat 11/21/2021 11/21/2022 6 6 Encounter Details Date Type Department Care Team (Late st Contact Info) Description 01/10/2022 3:40 PM EDT Office Visit Cardiology at [address] [address] Curtis Arredondo MD [facility] [place] [address] Persistent atrial fibrillation Social History [...] schedulers in the next 2 weeks, call [phone] and speak to 'Oralia' or 'Niurka' For any questions, call my office: [phone] (and then 'option 2') Curtis WAGONER.[facility], Clinical Cardiac Electrophysiology, [facility], For more information about heart rhythm issues, go to [email or web address] - the Heart Rhythm Society's patient resource center [facility]atorrank[facility] specialty hospitalOfuzSlope To access your health care information, go to the web at: [email or web address] (you will need to register) Heart-Healthy Lifestyle [...] more? Visit our health information library at [email or web address] You can also view health information on Roundbox, your personal patient account. Log in or sign uptoday. * Attachments The following attachments cannot be sent through Care Everywhere. * Atrial Fibrillation: Cardioversion or Medicines: Deciding About (Syrian) documented in this encounter Progress Notes * Curtis Arredondo MD - 01/10/2022 3:40 PM EDT Images from the original note were not included. Section of Cardiology/Cardiac Electrophysiology Clinical Cardiac Electrophysiology Follow Up Patient ID Wilber Shell [id number] Wilber Shell is following up in EP [...] is complete CURTIS ARREDONDO MD Cardiac Electrophysiology [facility] [place] T: [phone] F: [phone] 20 minutes of this 25 minute encounter [...] 3:30 PM EDT Office Visit Cardiology at [address] [phone] Carlos Eduardo Quan PA [facility] [place] [address] documented as of this encounter Visit Diagnoses Diagnosis Persistent atrial fibrillation Atrial fibrillation documented in this encounter Care Teams Plastic Tool Maker Relationship Specialty Start Date End Date Domenica Atkins APRN PCP - General Family Medicine 11/21/21 documented as of this encounter
--- OUTSIDE RECORDS SUMMARY | 2024-07-10 10:32 | XMS_ITS | Encounter Summary ---
[place] [address] Care Team Providers Care Principal Data Architect Name Role Phone RayDomenica tate Dayron AGUILAR Primary Care Provider [phone] Reason for Visit * Auth/Cert Specialty Diagnoses / Procedures Referred By Contac t Referred To Contact Diagnoses Atrial fibrillation, unspecified type [I48.91] Procedures ELECTROPHYSIOLOGY PROCEDURE Referral ID Status Reason Start Date Expiration Date Visits Re quested Visits Authorized [id number] 1 1 Encounter Details Date Type Department Care Team (Late st Contact Info) Description 01/02/2022 7:30 AM EDT - 01/02/2022 12:00 PM EDT Surgery [place] [address] Ryder Mcadams MD [facility] [place] [address] ELECTROPHYSIOLOGY PROCEDURE Social History Tobacco Use Types [...] of any new medications initiated at the [facility]. The patient should be aware and [...] his/her physician or the Cardiac Electrophysiology Service ([phone]). documented in this encounter Medications at Time [...] 3:30 PM EDT Office Visit Cardiology at [address] [place] [address] Carlos Eduardo Quan PA [facility] [place] [address] documented as of this encounter Procedures Procedure [...] Glucose, POC 144 65 - 199 mg/dL [facility] Comment: Supplemental ranges: <140 mg/dL before meals <180 mg/dL all other times of the day Blood 01/02/2022 12:0 1 PM EDT 01/02/2022 12:01 PM EDT Ryder Mcadams MD POINT OF CARE TEST O RDERABLES [facility] [place] [place] [address] * ELECTROPHYSIOLOGY PROCEDURE (01/02/2022 8:27 AM EDT) Anatomical Region Laterality Modality Other Impressions 01/06/2022 11:53 AM EDT : ? ? Successful ablation of typical atrial flutter DISCUSSION: 1. Continue metoprolol succinate at 75 mg daily. 2. Continue apixaban 5mg twice daily for anticoagulation. 3. Follow up in clinic with either Dr. Julian or Dr. Mcadams. I was the magnetic prospecting operator for the procedure, present for the entire procedure and personally edited this note RYDER MCADAMS MD Narrative 01/06/2022 11:53 AM EDT Ablation of Atrial flutter: Electrophysiology Study, Mapping (CARTO), Cardioversion, Ablation Indication: Symptomatic atrial flutter Puncher And Fastener: Ryder WAGONER.[facility]. Fellow: Beau Julian MD Procedure: The patient [...] lesion set. Intervals: Cycle length: 724 ms [place] 172 ms QRS 93 ms QT 344 ms HV 54 ms (taken in atrial flutter) Conduction AVWB 320ms AERP 600/220ms AVNERP <600/220ms Ryder Mcadams MD EP PROCEDURE ORDERAB LES * Differential, Automated (01/02/2022 7:15 AM EDT) Neutrophil % 60.2 % [facility] Neutrophil Absolute 5.32 1.70 - 6.10 x10(3)/[facility] Lymph % 25.6 % [facility] Lymphocytes Abs 2.3 0.9 - 3.2 x10(3)/[facility] Monocyte % 10.5 % [facility] Monocyte Abs 0.9 0.3 - 0.9 x10(3)/[facility] Eos % 2.6 % [facility] Eosinophils Abs 0.2 0.0 - 0.4 x10(3)/[facility] Basophil % 0.8 % [facility] Baso Absolute 0.1 0.0 - 0.1 x10(3)/[facility] Immature Gran % 0.30 % [facility] Comment: Immature granulocytes(IG's)percentage and absolute count will include metamyelocytes, myelocytes, and promyelocytes. Blood smears from CBCs yielding IG's will be scanned manually for concordance. If this scan disagrees with the automated IG or if promyelocytes are noted, a manual differential will be performed. Immature Gran Absolute 0.03 0.00 - 0.04 x10(3)/[facility] Blood 01/02/2022 7:15 AM EDT 01/02/2022 7:32 AM EDT Narrative Resulting Agency Comment Spec In Lab Beau Julian MD HEMATOLOGY ORDERAB LES [facility] [place] [address] * (ABNORMAL) Hemogram (01/02/2022 7:15 AM EDT) White Blood Cell 8.8 4.0 - 9.5 x10(3)/mc L [facility] Red Blood Cell 4.42(L) 4.58 - 5.54 x10(6)/ L [facility] Hemoglobin 14.0 13.7 - 16.5 g/dL [facility] Hematocrit 42.5 40.5 - 48.5 % [facility] Mean Cell Volume 96.2(H) 82.9 - 93.1 [facility] Mean Cell Hemoglobin 31.7 27.5 - 32.1 pg [facility] Mean Cell Hemoglobin Concentration 32.9 32.0 - 35.7 g/dL [facility] Platelet 179 145 - 357 x10(3)/mc L [facility] RDW Standard Deviation 46.4(H) 36.0 - 45.0 [facility] RDW coefficient of variation 13.1 11.4 - 13.8 % [facility] Mean Platelet Volume 11.3 7.6 - 12.9 [facility] NRBC% auto 0.0 % [facility] NRBC Absolute 0.000 0.000 - 0.000 x10(3)/mc L [facility] Blood 01/02/2022 7:15 AM EDT 01/02/2022 7:32 AM EDT Narrative Resulting Agency Comment Spec In Lab Beau Julian MD HEMATOLOGY ORDERAB LES [facility] [place] [address] * (ABNORMAL) Basic Metabolic Panel (non-fasting) (01/02/2022 7:15 AM EDT) Glucose 200(H) 65 - 199 mg/dL [facility] Comment:Diabetes: >=200 mg/d L plus symptoms Blood Urea Nitrogen 18 10 - 20 mg/dL [facility] Creatinine 0.89 0.80 - 1.50 mg/dL [facility] Sodium 140 135 - 145 mmol/L [facility] Potassium 4.5 3.5 - 5.0 mmol/L [facility] Comment: Please note: ??Patients with WBC >100,000 may have falsely elevated Potassium levels. ??For accurate Potassium quantification in these patients send serum separator tube (gold top) for subsequent determinations. ??Contact the Clinical Chemistry Laboratory if there are any questions. Chloride 105 98 - 107 mmol/L [facility] Carbon Dioxide 23 22 - 31 mmol/L [facility] Anion Gap 12 5 - 15 mmol/L [facility] Calcium 9.1 8.5 - 10.5 mg/dL [facility] Est Glomerular Filtration Rate 86 >=60 mL/min/1. 73 m?? [facility] Comment: This patient? s estimated [...] Mcadams MD CHEMISTRY ORDERABLES Performing Organization Address City/[facility] Co de Phone Number [facility] [place] [address] * POCT Glucose (01/02/2022 6:51 AM EDT) Glucose, POC 186 65 - 199 mg/dL [facility] Comment: Supplemental ranges: <140 mg/dL before meals <180 mg/dL all other times of the day Blood 01/02/2022 6:51 AM EDT 01/02/2022 6:51 AM EDT Ryder Mcadams MD POINT OF CARE TEST O RDERABLES Performing Organization Address City/State/[facility] Co de Phone Number [facility] [address] [place] [address] documented in this encounter Visit Diagnoses Diagnosis [...] Routine documented in this encounter Care Teams Principal Data Architect Relationship Specialty Start Date End Date Domenica Atkins APRN PCP - General Family Medicine 11/21/21 documented as of this encounter
--- OUTSIDE RECORDS SUMMARY | 2024-07-10 10:32 | XMS_ITS | Encounter Summary ---
Author Organization [facility] [place] [address] Care Team Providers Care Hr Recruiter Name Role Phone Domenica Atkins APRN Primary Care Provider [phone] Encounter Details Date Type Department Care Team (Late st Contact Info) Description 02/09/2022 Orders Only Cardiology at [address] [phone] Carlos Eduardo Quan PA [facility] [address] Persistent atrial fibrillation (Primary Dx) Social History [...] 3:30 PM EDT Office Visit Cardiology at [address] [phone] Carlos Eduardo Quan PA [facility] [place] [place] [address] documented as of this encounter Visit Diagnoses Diagnosis Persistent atrial fibrillation- Primary Atrial fibrillation documented in this encounter Care Teams Hr Recruiter Relationship Specialty Start Date End Date Domenica Atkins APRN PCP - General Family Medicine 11/21/21 documented as of this encounter
--- OUTSIDE RECORDS SUMMARY | 2024-07-10 10:32 | XMS_ITS | Encounter Summary ---
Author Organization [facility] Address [address] [place] [address] Care Team Providers Care Reservations Specialist Name Role Phone Unknown, Provider Primary Care Provider Unava ilable Encounter Details Date Type Department Care Team (Late st Contact Info) Description 12/06/2020 Lab Requisition [facility] Pathology & Laboratory Medicine - [address] [address] Outr Resulting Lab, Provider Social [...] 0.0 - 6.5 ng/mL 12/06/2020 21:55 EDT [facility] Blood VENOUS BLOOD / Unknown 12/06/2020 9:05 EDT 12/06/2020 20:53 EDT Narrative [facility] - 12/06/2020 21:55 EDT NOTE: Serum PSA concentration should not be interpreted as absolute evidence for the presence or absence of malignant disease. Assayed on Siemens ADVIA [employer] XPT using chemiluminescent technology.??Values obtained by using different assay methods cannot be used interchangeably. Provider Outr Resulting Lab CHEMISTRY & BLOOD GAS ORDERABLES [facility] [address] [place] [address] documented in this encounter Visit Diagnoses Not on filedocumented in this encounter Care Teams Reservations Specialist Relationship Specialty Start Date End Date Unknown, Provider, PCP - General 12/01/20 documented as of this encounter
--- OUTSIDE RECORDS SUMMARY | 2024-07-10 10:32 | XMS_ITS | Encounter Summary ---
[place] [address] Care Team Providers Care Family And Consumer Education Teacher Name Role Phone Milly Domenica Dayron AGUILAR Primary Care Provider [phone] Reason for Visit * Auth/Cert Specialty Diagnoses / Procedures Referred By Valeria russell Referred To Contact Diagnoses CHF (congestive heart failure) Chronic atrial fibrillation Jeremy Jackman MD [facility] [place] [address] RUST Referral ID Status Reason Start Date Expiration Date Visits Re quested Visits Authorized [id number] 1 1 Encounter Details Date Type Department Care Team (Late st Contact Info) Description 03/01/2022 10:07 AM EDT Anesthesia Event Non-[place] [address] Adama Silva MD [facility] [place] [address] Anesthesia Record Procedure Summary Procedure Name Responsible [...] 1123; median cubital vein (antecubital fossa), right; [id number] catheter system; Anatomical Landmarks; US Not Used; 18 gauge; Ramiro NRP; tolerated well; 03/03/22; 1046 02/28/22 1123 by Ramiro Conley NRP 03/03/22 1046 by Luz Rodriguez RN (RETIRED) Peripheral IV Line - Single Lumen 02/28/22; 1822; median cubital vein (antecubital fossa), left; rjtq-mrw-jtzggs catheter system; Anatomical Landmarks; US Not Used; [...] 03/01/22 Room / Location: Non-Invasive Cardiology Lab [facility] Anesthesia Start: 1007 Anesthesia Stop: 1056 [...] shown include unvalidated device data. Patient Location: [facility] Level of Consciousness: Pain Management: PONV: Cardiovascular [...] PM EDT Office Visit Cardiology at [address] [place] [id number] Carlos Eduardo Quan, ALISON [facility] [place] [address] documented as of this encounter Visit Diagnoses [...] hr documented in this encounter Care Teams Family And Consumer Education Teacher Relationship Specialty Start Date End Date Domenica Atkins, BREAD RACKER PCP - General Family Medicine 11/21/21 documented as of this encounter
--- OUTSIDE RECORDS SUMMARY | 2024-07-10 10:32 | XMS_ITS | Encounter Summary ---
Author Organization [facility] Address [address] [place] [address] Care Team Providers Care Resaw Machine Operator Name Role Phone Unknown, Provider Primary Care Provider Unava ilable Encounter Details Date Type Department Care Team (Late st Contact Info) Description 12/30/2021 Lab Requisition [facility] Pathology & Laboratory Medicine - [address] [address] Outr Resulting Lab, Provider Social History Tobacco [...] Priority Date/Time Associated Diagnosis Comments ZZCOVID-19 TEST [facility] LAB PCR Today 12/29/2021 13:30 EDT COVID-19 TESTING Routine 12/29/2021 13:3 0 EDT documented in this encounter Results * COVID-19 TEST [facility] LAB PCR (12/29/2021 13:30 EDT) Swab 12/29/2021 13:3 0 EDT 12/30/2021 21:47 EDT Provider Outr Resulting Lab MICROBIOLOGY - GENERAL ORDERABLES [facility] [address] [place] [address] * COVID-19 TESTING (12/29/2021 13:30 EDT) COVID-19 rt-PCR Result Negative Negative 12/31/2021 14:21 EDT [facility] Comment: This test has [...] was performed using the garret SARS-CoV-2 assay ([employer] on the Garret 6800 System Performing Lab Garret [address] [facility] Lab 12/31/2021 14:21 EDT [facility] Swab 12/29/2021 13:3 0 EDT 12/30/2021 21:47 EDT Provider Outr Resulting Lab MICROBIOLOGY - GENERAL ORDERABLES [facility] [address] [place] [address] documented in this encounter Visit Diagnoses Not on filedocumented in this encounter Care Teams Resaw Machine Operator Relationship Specialty Start Date End Date Unknown, Provider, PCP - General 12/01/20 documented as of this encounter
--- OUTSIDE RECORDS SUMMARY | 2024-07-10 10:32 | XMS_ITS | Encounter Summary ---
[place] [address] Care Team Providers Care Backbreaker Name Role Phone Domenica Atkins Dayron AGUILAR Primary Care Provider [phone] Encounter Details Date Type Department Care Team (Late st Contact Info) Description 01/11/2022 Telephone Cardiology at [address] [phone] Génesis Giordano, RN Social History [...] yesterday. Génesis Giordano RN Cardiology Clinic at [facility] [address] documented in this encounter Plan of Treatment Upcoming Encounters Date Type Department Care Team (Late st Contact Info) Description 12/23/2024 3:30 PM EDT Office Visit Cardiology at [address] [place] [address] Carlos Eduardo Quan, ALISON [facility] [place] [address] documented as of this encounter Visit Diagnoses Not on filedocumented in this encounter Care Teams Backbreaker Relationship Specialty Start Date End Date Domenica Atkins APRN PCP - General Family Medicine 11/21/21 documented as of this encounter
== END 2024-07-10 10:28 | disposition home or self-care (01) ==
LOC: NCHCN 10:27
PROVIDERS: PCP Family Medicine; Visit Provider Family Medicine
DX: R94.6 Abnormal results of thyroid function studies (principal)
CPT/HCPCS: 84439

== ENCOUNTER 2024-07-28 08:11 | Outpatient (CLI) | payer MEDICARE, BC, SELFPAY ==
--- NOTE | 2024-07-28 08:00 | RT.EKG_ITS ---
APPROVED REPORT Exam: Resting ECG Reason for Exam: PAF Patient Location: O HR:56 bpm ECG Measurements Heart Rate 56 AXIS PA 188 P 0 QRSd 98 QRS -26 QT 483 T 3 QTc 467 Conclusion Sinus rhythm...normal P axis, V-rate 50- 99 Inferior infarct, old...Q >35mS, II III aVF
== END 2024-07-28 08:12 | disposition home or self-care (01) ==
LOC: DI.CARD 08:12
PROVIDERS: PCP Family Medicine; Visit Provider Internal Medicine Cardiovascular Disease
DX: I48.0 Paroxysmal atrial fibrillation (principal); Z79.899 Other long term (current) drug therapy
CPT/HCPCS: 93010

== ENCOUNTER → 2024-07-28 12:51 | Outpatient (BNVA) | payer MEDICARE, BC, SELFPAY | PROVIDERS: PCP Family Medicine; Visit Provider Internal Medicine Cardiovascular Disease | DX: R94.31 Abnormal electrocardiogram [ECG] [EKG] (principal); Z51.81 Encounter for therapeutic drug level monitoring; I48.0 Paroxysmal atrial fibrillation | CPT/HCPCS: 93005; 99213 ==

== ENCOUNTER → 2024-10-21 14:38 | Outpatient (BNVA) | payer MEDICARE, BC, SELFPAY | PROVIDERS: PCP Family Medicine; Referring Provider Family Medicine; Visit Provider Podiatrist | DX: E11.42 Type 2 diabetes mellitus with diabetic polyneuropathy (principal); Z79.4 Long term (current) use of insulin; B35.1 Tinea unguium; L60.3 Nail dystrophy; R09.89 Other specified symptoms and signs involving the circulatory and respiratory systems; R20.8 Other disturbances of skin sensation; L65.9 Nonscarring hair loss, unspecified; I83.93 Asymptomatic varicose veins of bilateral lower extremities; R60.0 Localized edema; R23.8 Other skin changes; L60.2 Onychogryphosis; L60.8 Other nail disorders; M79.674 Pain in right toe(s); M79.675 Pain in left toe(s) | CPT/HCPCS: 11721 ==

== ENCOUNTER → 2025-01-13 10:57 | Outpatient (BNVA) | payer MEDICARE, BC, SELFPAY | PROVIDERS: PCP Family Medicine; Referring Provider Family Medicine; Visit Provider Podiatrist | DX: E11.42 Type 2 diabetes mellitus with diabetic polyneuropathy (principal); Z79.4 Long term (current) use of insulin; B35.1 Tinea unguium; L60.3 Nail dystrophy; R09.89 Other specified symptoms and signs involving the circulatory and respiratory systems; R20.8 Other disturbances of skin sensation; I83.93 Asymptomatic varicose veins of bilateral lower extremities; R60.0 Localized edema; R23.8 Other skin changes; L60.2 Onychogryphosis; L60.8 Other nail disorders; M79.674 Pain in right toe(s); M79.675 Pain in left toe(s) | CPT/HCPCS: 11721 ==

== ENCOUNTER → 2025-04-01 13:53 | Outpatient (BNVA) | payer MEDICARE, BC, SELFPAY | PROVIDERS: PCP Family Medicine; Referring Provider Family Medicine; Visit Provider Physical Therapy Assistant | DX: Z12.11 Encounter for screening for malignant neoplasm of colon (principal); I10 Essential (primary) hypertension; E11.9 Type 2 diabetes mellitus without complications; E78.5 Hyperlipidemia, unspecified; K21.9 Gastro-esophageal reflux disease without esophagitis | CPT/HCPCS: S0285 ==

== ENCOUNTER → 2025-04-12 11:06 | Outpatient (BNVA) | payer MEDICARE, BC, SELFPAY | PROVIDERS: PCP Family Medicine; Referring Provider Family Medicine; Visit Provider Podiatrist | DX: E11.42 Type 2 diabetes mellitus with diabetic polyneuropathy (principal); B35.1 Tinea unguium; L60.3 Nail dystrophy; R09.89 Other specified symptoms and signs involving the circulatory and respiratory systems; R20.8 Other disturbances of skin sensation; L65.9 Nonscarring hair loss, unspecified; I83.93 Asymptomatic varicose veins of bilateral lower extremities; R60.0 Localized edema; L60.2 Onychogryphosis; L60.8 Other nail disorders; M79.674 Pain in right toe(s); M79.675 Pain in left toe(s) | CPT/HCPCS: 11721 ==

== ENCOUNTER 2025-04-26 06:47 | Day surgery (SDC) | payer MEDICARE, BC, SELFPAY ==
--- NOTE | 2025-04-25 16:18 | W.PM.DSUDISC ---
Date of service: 04/26/25 Discharge Plan Disposition Patient Disposition: Home Condition: Good Discharge Details Reason For Visit: screening colonoscopy Attending Provider: Cristi Ordonez Primary Care Provider: Emily Ortiz V Home Meds and New Rx's Prescriptions: Continued sildenafil [Viagra] 50 mg tablet 50 mg PO DAILY PRN (Reason: sexual activity) Qty: 10 0RF Rx Instructions: administer 30 minutes to 4 hours before activity amiodarone 200 mg tablet 175 mg PO DAILY simethicone [Gas Relief (simethicone)] 80 mg tablet,chewable 80 mg PO BID-QID PRN glimepiride 4 mg tablet 4 mg PO DAILY (DME) pen needle, diabetic [TRUEplus Pen Needle] 31 gauge x 1/4 needle See Rx Instructions .Route Rx Instructions: As directed doxepin 10 mg capsule 10 mg PO DAILY PRN clotrimazole 1 % cream 1 applic topical BID PRN Patient Comments: Per pt med list 01/06/24 for toe nail fungus RH ketoconazole 2 % cream 1 applic topical DAILY Patient Comments: 01/06/24 toe nail fungus per pt med list RH metoprolol succinate 50 mg tablet extended release 24 hr 50 mg PO DAILY zolpidem 10 mg tablet 10 mg PO QHS PRN tolnaftate [Tinactin] 1 % cream 1 applic topical DAILY PRN insulin glargine [Lantus Solostar U-100 Insulin] 100 unit/mL (3 mL) insulin pen 24 unit subcut BID metformin 1,000 MG tablet 1,000 mg PO BID omeprazole 20 mg capsule,delayed release(DR/EC) 20 mg PO DAILY PRN Patient Comments: 07/28/24 per pt med list RH pravastatin 20 mg tablet 20 mg PO .QD Patient Comments: Pt reports 1 QD, to control kidney stones potassium citrate 10 mEq (1,080 mg) tablet extended release 10 meq PO BID Held rivaroxaban 20 mg tablet 20 mg PO DAILY Hold Instructions: Resume on 04/27/25. Rx Instructions: must administer with evening meal Discontinued bisacodyl [Dulcolax (bisacodyl)] 5 mg tablet,delayed release (DR/EC) 5 mg PO ONCE Qty: 4 0RF Rx Instructions: Take per colonoscopy instructions provided by ordering providers office polyethylene glycol 3350 17 gram/dose powder 17 g PO ONCE Qty: 238 0RF Rx Instructions: Take per colonoscopy instructions provided by ordering providers office Discharge Instructions Instructions: Colon polyps, Diverticulosis Additional Instructions: Linden, it was great seeing you today. I hope you feel well this afternoon. Things went very smoothly. I did find, and removed 2 polyps today. Actually, there were 3 polyps total, but the last one was quite small, and I simply cauterized or burnt it. The other 2 polyps will be sent off to the pathologist for their review. Once I know the nature of these, my office will be in touch with recommendations for your next colonoscopy. Because of the polyp removal today, I would like you to hold your rivaroxaban until tomorrow. At that point, you can resume it just as you normally take it. Incidentally, you also have some diverticulosis. Diverticula are weak spots in the muscular layer of the colon wall. This causes little pockets or pouches to form. I will attach some basic information here about diverticulosis as well as colon and rectal polyps. If you need anything, or have any questions at all, please do not hesitate to ask at any time. 1. If tolerated, consume a soft, low fiber diet for 1-2 days. 2[address] Do not drive, drink alcohol, operate machinery, make critical decisions, or do activities that require coordination or balance for 24 hours. 3. Because air was put into your colon during the procedure, expelling air from your rectum (passing gas or farting) is normal. 4. You may not have a bowel movement for 1-3 days because of the colonoscopy prep. This is normal. 5. Go directly to the emergency room if you notice any of the following: Develop chills (warm to touch), or if you have a thermometer and your temperature is above 101 Difficulty breathing or difficultly swallowing Persistent vomiting Severe abdominal pain, other than gas cramps Severe chest pain Black, tarry stools Any bleeding ? exceeding one tablespoon 6. Call your physician if the site where your intravenous was started becomes red, swollen, painful, and warm to touch. 7. Your physician has reviewed your pre-procedure medications. Please continue to take those medications as previously ordered. You will be given specific information/education regarding any changes to your medications before leaving. Activity:: Activity as Tolerated Diet:: As Tolerated Discharge Orders Discharge Orders: Discharge Order (Routine); Ordered 04/25/25 Ordered By: Cristi Ordonez DS: Diagnosis Discharge Diagnosis (1) Encounter for screening colonoscopy: Status: Acute Asessment and Plan: Follow-up on polypectomy results
--- NOTE | 2025-04-25 16:20 | W.COLOREPORT ---
Date of service: 04/26/25 Time of Service: 09:40 Colonoscopy Report Date of procedure: 04/26/25 Pre-op diagnosis general: screening colonoscopy Post-op diagnosis procedure note: other (Colonoscopy, diverticulosis) Procedure: colonoscopy with polypectomy Surgeon: Cristi Ordonez Anesthesia Type: General:No Airway Estimated blood loss (mL): 5 Pathology: other (Cecal polyps x 2, single specimen) Complications: None Disposition: same day Indications: Linden is a 75 year old man who needs a screening colonoscopy Prep: Miralax/Dulcolax Procedure Start Time: 08:50 Procedure End Time: 09:24 Retraction Time: 23 Findings: Pandiverticulosis, cecal polyps x 3. Procedure Description: After the induction of anesthesia, and with the patient in left lateral decubitus position, I began by performing an external anorectal exam.? There are some old external hemorrhoids.?Next, I performed a digital rectal exam.?Next, I advanced a colonoscope into the rectal vault.? I performed retroflexion.? There are some fibroepithelial polyps. None appear pathologic..? Using irrigation, I then advanced the colonoscope beyond the rectal folds and into the sigmoid colon before advancing towards the cecum.? The quality of the prep was adequate.? There is diverticulosis involving all segments of the colon. The scope was noted to be in the cecum by identification of the ileocecal valve and appendiceal orifice. There are 3 total polyps in the cecum. One is well less than 0.25 cm and flat. This was cauterized.? A second polyp is about 0.5 cm, mostly flat. This was removed with a energize snare polypectomy. Resection was complete, and the specimen was retrieved. Finally, a few millimeters away was another polyp. This was about 0.75 cm. This was mostly flat. This was removed with a energize snare polypectomy without any issues as well. Resection of this appeared to be complete, and the specimen here was retrieved as well. I then began withdrawing the colonoscope using repeated irrigation as necessary for full evaluation of the colonic mucosa. ?Once the scope was withdrawn to the level of the rectum, great care was taken to examine portions of the rectal folds.? Finally, the scope was withdrawn and the patient was brought to the same-day surgery recovery unit as the anesthetic wore off. ?The findings and instructions were shared with the patient prior to discharge. Rawlings Bowel Prep Rawlings Bowel Prep Right Colon: 2 Left Colon: 2 Transverse Colon: 2 Total Score: 6
--- NOTE | 2025-04-25 18:37 | W.ANESPRE ---
General Info Date of Service Date Performed: 04/26/25 Height: 5 ft 8 in Weight: 113.398 kg Body Mass Index (BMI): 38.0 Surgical Procedure: Operation Date: 04/26/25 08:20 Proposed Procedure Side Surgeon hui Ordonez MD Meds Allergies and Home Medications Allergies Allergy/AdvReac Type Severity Reaction Status Date / Time amiodarone Allergy Severe as Verified 04/26/25 07:16 Sulfone drug-induced ITP thrombocytopenia metoprolol Allergy Severe as Verified 04/26/25 07:16 Sulfone drug-induced ITP thrombocytopenia tamsulosin (From Flomax) Allergy Severe . Verified 04/26/25 07:16 torsemide Allergy Severe as Verified 04/26/25 07:16 Sulfone drug-induced ITP thrombocytopenia dofetilide AdvReac elongated Verified 04/26/25 07:16 EKG Home Medication ?Medication ?Instructions ?Recorded metformin 1,000 mg tablet 1,000 mg PO BID 07/11/15 potassium citrate 10 mEq (1,080 10 meq PO BID 07/12/20 mg) tablet,extended release sildenafil 50 mg tablet (Viagra) 50 mg PO DAILY PRN sexual activity 09/26/20 #10 tabs simethicone 80 mg chewable tablet 80 mg PO BID-QID PRN 12/26/20 (Gas Relief (simethicone)) pen needle, diabetic 31 gauge x 07/06/2209/05 (TRUEplus Pen Needle) rivaroxaban 20 mg tablet 20 mg PO DAILY 07/06/22 clotrimazole 1 % topical cream 1 applic topical BID PRN 01/06/24 doxepin 10 mg capsule 10 mg PO DAILY PRN 01/06/24 ketoconazole 2 % topical cream 1 applic topical DAILY 01/06/24 amiodarone 200 mg tablet 175 mg PO DAILY 07/28/24 glimepiride 4 mg tablet 4 mg PO DAILY 07/28/24 metoprolol succinate 50 mg 50 mg PO DAILY 07/28/24 tablet,extended release 24 hr omeprazole 20 mg capsule,delayed 20 mg PO DAILY PRN 07/28/24 release tolnaftate 1 % topical cream 1 applic topical DAILY PRN 07/28/24 (Tinactin) zolpidem 10 mg tablet 10 mg PO QHS PRN 07/28/24 insulin glargine 100 unit/mL (3 24 unit subcut BID 10/26/24 mL) subcutaneous pen (Lantus Solostar U-100 Insulin) pravastatin 20 mg tablet 20 mg PO .QD 10/26/24 Current Visit Medications: Current Medications Generic Name Dose Route Start Last Admin Trade Name Freq PRN Reason Stop Dose Admin Ringer's Solution 1,000 mls @ 80 mls/hr 04/26/25 06:00 IV 05/23/25 23:59 [facility] IV Miscellaneous Supplies 1 each 04/26/25 06:00 Iv Access IV 05/23/25 23:59 DIRECTED ROB Ondansetron HCl 4 mg 04/25/25 16:21 Ondansetron 4 Mg/2 Ml Vial IVP 05/25/25 16:20 Q4H PRN PRN Nausea / Vomiting Sodium Chloride 0 ml 04/26/25 06:00 Normal Saline Flush 10 Ml Syr IV 05/23/25 23:59 PRN PRN Sodium Chloride 0 ml 04/26/25 06:00 Normal Saline 10 Ml Vial IJ 05/23/25 23:59 DIRECTED PRN Sterile Water 0 ml 04/26/25 06:00 Water,Injection,Sterile 10 Ml Vial IJ 05/23/25 23:59 DIRECTED PRN PFSH Active Problems Active Problems: Problem Status Onset Code Encounter for screening colonoscopy Acute Z12.11 Medication management Acute Z79.899 Medication monitoring encounter Acute Z51.81 Peripheral neuropathy Acute G62.9 Laceration of thumb, right Acute S61.011A Type 2 diabetes mellitus with diabetic polyneuropathy Acute E11.42 Discharge planning issues Acute Z02.9 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 Nail dystrophy Acute L60.3 Mitral regurgitation Chronic I34.0 Cardiomyopathy Acute I42.9 Tachycardia Acute R00.0 A-fib Chronic I48.91 PAC (premature atrial contraction) Acute I49.1 Abnormal chest x-ray Acute R93.89 Shortness of breath Acute R06.02 Knee pain Acute M25.569 Knee swelling Acute M25.469 Medical History Medical History Lower urinary tract symptoms (LUTS) Nocturia Strabismus Hyperlipidemia JEEVAN (obstructive sleep apnea) GERD (gastroesophageal reflux disease) Hemorrhoids Onychomycosis Erectile dysfunction Surgical History Surgical History History of cholecystectomy (~03/2023) Tobacco Smoking/Tobacco Use Status: Never Alcohol Alcohol Intake: former Substance Use Substance use: Never Substance use type: does not use Vital Signs and Lab Results Vital Signs Most Recent Vital Signs in EMR: Temp Pulse Resp BP Pulse Ox 36.2 C L 75 16 127/77 97 04/26/25 07:25 04/26/25 07:04/26/25 07:25 04/26/25 07:04/26/25 07:25 Imaging and Studies Imaging and Studies Study information below may be from another EMR and interpreted by another provider. Please see original notes in EMR for more complete details. EKG Summary: EKG PATIENT NAME: Rosalio Ovalles #: [id number] ORDERING PROVIDER: Almas Maicel M.D. PRIMARY CARE PROVIDER:DOMENICA WILKINSON NP DATE/TIME OF SERVICE: 03/11/23 003 : 1950PERFORMING LOCATION: [place] APPROVED REPORT Exam: Resting ECG Reason for Exam: chest pain Patient Location: E HR:42 bpm ECG Measurements Heart Rate 42 AXIS CO 201 P 23 QRSd 102 QRS -16 QT 528 T29 QTc 442 Conclusion Sinus bradycardia...rate< 60 <Electronically signed by ALMAS MACIEL MD in OV> E-Sign Date: 03/11/23 E-Sign Time: 010 ADDENDUM APPROVED REPORT Exam: Resting ECG Reason for Exam: chest pain Patient Location: E HR:42 bpm ECG Measurements Heart Rate 42 AXIS CO 201 P 23 QRSd 102 QRS -16 QT 528 T29 QTc 442 Conclusion Sinus bradycardia...rate< 60 I have reviewed and I agree with the emergency room physician's ECG interpretation. Electronically signed by: <Electronically signed by Natali Iqbal M.D. in OV> 03/11/23 0809 Cosigned by: Echocardiogram Summary: Patient Name: Rosalio Ovalles #: [id number]: CATHERINE Ordering Provider: Bert Arredondo #: [id number]: REG CLI Primary Care Provider: Magalys Wilkinson of Exam: 12/13/22Sex: M Admission Date: 12/13/22 : 1950 Age: 72 APPROVED REPORT EXAM: Comprehensive 2D, Doppler, and color-flow Echocardiogram Patient Location: Out-Patient Indications: persistent afib Other Information Study Quality: Adequate Conclusion Normal left ventricular chamber size and wall thickness. Estimated ejection fraction is 50 to 55%. There are no segmental wall motion abnormalities Normal right ventricular size and systolic function Left atrium is moderately dilated. Right atrial size is normal Aortic valve is trileaflet with mild regurgitation Structurally normal mitral valve with moderate regurgitation Normal tricuspid valve with mild regurgitation. Estimated right ventricular systolic pressure is 27 mmHg Mildly dilated ascending aorta measuring 3.48 cm Wall motion Left Ventricle The left ventricle is normal size. Left ventricular systolic function is mildly decreased. There is normal left ventricular wall thickness. There are no segmental wall motion abnormalities There is no ventricular septal defect visualized. LVEF is 50-55%. Right Ventricle The right ventricle is normal size. Right ventricular systolic function is grossly normal. The RVSP is 26.9 mmHg. Atria Left atrium is moderately dilated. Right atrium is normal The interatrial septum is intact with no evidence for an atrial septal defect. Aortic Valve Aortic valve is trileaflet. The aortic valve is normal in structure. There is no aortic valvular stenosis. Mild aortic regurgitation. Mitral Valve The mitral valve is normal in structure. No evidence of mitral valve stenosis. Moderate mitral regurgitation. Tricuspid Valve The tricuspid valve is normal in structure. There is no tricuspid valve stenosis. Mild tricuspid regurgitation. Pulmonic Valve The pulmonary valve is normal in structure. There is no pulmonic valvular stenosis. There is no pulmonic valvular regurgitation. Great Vessels The aortic root is normal in size. The ascending aorta is mildly dilated. Aortic arch is normal in caliber. IVC is normal in size and collapses >50% with inspiration. Pericardium There is no pericardial effusion. 2D Dimensions IVSD d PLAX 0.78 cm M: 0.6-1.2LV Vol A2C d MOD 227.7 mL LVPW d PLAX 0.79 cm M: 0.6 - 1.2LV Vol A4C d MOD 155.2 mL LVID d PLAX 5.83 cm M: 4.2 - 5.8LA vol/ BSA A4C s A-L50.4 mL/m2 LVDs 3.50 cm M: 2.5 - 4.0LA Area A4C s MOD 30.17 cm2 Ao Root d 3.41 cm M: 3.1 - 3.7LV EF A4C MOD 50.9 % Ao Asc Diam d 3.48 cm M: 2.6 - 3.4LV EF A2C MOD 51.5 % LV EF Teichholz 69.5 %LV EF Biplane MOD 50.9 % LVEF (Mendoza's)50.87 % M: 52 - 72SV95.28 mL LV Aopwvo543.77 mL M: 62 - 150SV Index42.86 mL/m2 LV Volume Index60.88 mL/m2 M: 34 - 74 LV Vol Biplane MOD 187.3 mL FS39.70 % M-Mode TAPSE 1.85 cm (M/F) >1.7 LV Diastology MV E' medial0.086 (>0.07 m/s)E/A Ratio 1.3 LV E/e MED6.65 (<14)MV E Vmax 0.57 (0.4-1.3 m/s) MV E' lateral0.143 (>0.1 m/s)MV A Vmax 0.45 (0.4-1.3 m/s) LV E/e LAT4.00 (<14)MV E/A Ratio 1.27 MV E/E' medial 6.65 MV E/E' lateral4.01 Aortic Valve LVOT Area4.67 cm2AoV Area Vmax3.11 cm2 LVOT Vmax 0.73 m/sAoV Area/ BSA (Vmax)1.40 cm2/m2 LVOT Mean Bubba.0.48 m/sAVA Mean Bubba.2.57 cm2 LVOT Peak Grad 2.2 mmHgAVA Mean Bubba. Index1.15 cm2/m2 LVOT Mean Grad 1.0 mmHg LVOT VTI0.148 m LVOT Diam s 2.40 cm AoV Vmax1.10 m/s Velocity Ratio 0.66 AoV Mean Bubba.0.87 m/s AoV Peak Grad4.8 mmHg LVOT SV 68.97 mL AoV Mean Grad3.2 mmHg AoV VTI0.176 m AoV Area VTI3.93 cm2 AoV Area/ BSA (VTI)1.77 cm/m2 Mitral Valve MV DT 324 (160-240 msec) MV PHT94 msec MV Area PHT 2.34 cm2 MV VTI 0.246 m MV Area VTI 2.80 (4.0-6.0 cm2) Pulmonary Valve PV Vmax 0.69 (0.5-1.5 m/s)RVOT Peak Gr.0.45 mmHg PV Peak Grad 1.9 mmHgRVOT Mean Gr.0.25 mmHg PV Mean Grad 1.3 mmHgRVOT VTI0.047 m PV VTI 0.113 mRVOT Vmax 0.34 m/s Tricuspid Valve TR Peak Grad 23.9 mmHgTR Vmax 2.44 m/s RA Pressure 3.00 mmHg RVSP (TR) 26.9 mmHg Ordered By: Curtis Arredondo CC: Dictated By: Natali Iqbal M.D. 12/13/22 1614 <Electronically signed by Natali Iqbal M.D. in OV> 12/14/22 0809 Transcribed By: Natali Iqbal MD Pulmonary Function Summary: Pulmonary Function Test PATIENT NAME: Rosalio Ovalles #: [id number] ADMITTING PROVIDER: Malorie Naranjo M.D. PRIMARY CARE PROVIDER:DOMENICA WILKINSON NP DATE OF ADMIT: 02/02/22 : 1950 Date of service: 02/02/22 Time of Service: 10:30 Pulmonary Function Test Result Requesting Provider Domenica Wilkinson Indications: SOB Note: SPIROMETRY: There is no airflow limitation at baseline. METHACHOLINE CHALLENGE: There was no significant decrease in FEV1 with administration of methacholine. LUNG VOLUMES: Lung volumes are within normal limits. DLCO: The diffusing capacity is normal. AIRWAY RESISTANCE: The airway resistance is normal. INTERPRETATION: Normal baseline PFT's with a negative methacholine challenge test. Clinical Correlation therefore is recommended. Anesthesia Assessment and Plan Anesthesia History Personal History: No History of Anesthesia Complications Family History: No Family History of Anesthesia Complications Exercise Tolerance Exercise Tolerance: Metabolic Equivalents>4 Cardiac & Pulmonary Exam Cardiac Exam: Normal S1/S2 Heart Sounds Pulmonary Exam: Clear Bilateral Breath Sounds Implantable Cardiac Device Does patient have a Pacemaker or an ICD?: No Airway Exam Known Difficult Airway: No Mallampati Class: 2 Mouth Opening: Normal (> 3cm) Thyromental Distance: Greater than 3 cm Neck Range of Motion: Full ROM Neck Circumference: Normal Teeth Condition: Removable Dentures/Plates Upper, Removable Dentures/Plates Lower and Edentulous ASA Classification ASA Score: ASA 3 Emergency Case?: No NPO Status NPO Status: NPO Clears >2 hours, Solids >8 hours Anesthesia Plan Resuscitation Status: Full Code Anesthesia Technique: General Anesthesia Airway Planned: Natural Airway Monitors Used: Standard Monitors Preoperative Comments:: 75 yo for colo. Sig PMHx: afib (amiodarone, rivaroxaban, metoprolol. s/p ablation), JEEVAN, GERD (diet related), cardiomyopathy/CHF, neuropathy, DM (Lantus, glimperide. Last A1c 7.9), never smoker. ECG: sinus. echo: LVEF 50-55%, moderate MR. mild AR.
[2025-04-26 07:25] VITALS: BP 127/77; PULSE 75; RESP 16; TEMP 36.2; O2SAT 97
[2025-04-26 07:45] VITALS: BMI 38.0
[2025-04-26] MEDS: Lactated Ringers 1,000 ML 80 ML IV (07:45)
--- NOTE | 2025-04-26 09:02 | BOWEL_PTH ---
PATIENT: Wilber Ovalles LOC: [facility] U#:[id number] AGE/SX: 75/M ROOM: RE04/26/[address]: Cristi Ordonez MD : 1950 BED: DIS: 04/26/2025 SPEC #: [id number] RECD: 04/26/25 12:21 STATUS: RYAN REQ #: [id number] KARLA: 04/26/25 09:[address]: Cristi Ordonez DEPT: Surgical Specimen RECD BY: Yuki Kemp ENTERED: 04/26/25 12:22 SP TYPE: Bowel OTHR DR: Emily Ortiz V Tissues: 1 - BIOPSY BOWEL Procedures: GROSS AND MICRO LEVEL 4 Comments: [id number]
[2025-04-26 09:28] VITALS: BP 109/63; PULSE 74; RESP 17; TEMP 36.7; O2SAT 94
--- NOTE | 2025-04-26 09:30 | W.ANESPOSTOP ---
Postoperative Evaluation Date, Time and Location Date Performed: 04/26/25 Time Performed: 09:30 Patient Location: Day Surgery Unit Vital Signs Most Recent Imported Vital Signs: Most Recent Vital Signs Temp Pulse Resp BP Pulse Ox 36.7 C 74 17 109/63 94 04/26/25 09:28 04/26/25 09:28 04/26/25 09:28 04/26/25 09:28 04/26/25 09:28 Pain Score Most Recent Pain Score: Most Recent Pain Score Pain Level 0 04/26/25 07:25 Assessment Mental Status: Awake (Alert & Oriented to Patient Baseline) Airway and Respiratory Function: Patent airway with normal (patient baseline) respiratory exam Cardiovascular Function: Hemodynamically Stable Hydration Status: Adequately Hydrated Nausea & Vomiting: No Nausea or Vomiting Pain: Pt. Denies Any Pain Peripheral Nerve Block: Patient did not receive a nerve block
[2025-04-26 10:00] VITALS: BP 129/80; PULSE 64; RESP 20; TEMP 36.7; O2SAT 95
== END 2025-04-26 10:19 | disposition home or self-care (01) ==
LOC: SUR 06:48
PROVIDERS: PCP Family Medicine; Visit Provider Surgery
PROC: 0DJD8ZZ Inspection of Lower Intestinal Tract, Via Natural or Artificial Opening Endoscopic (ICD-10-PCS; CPT 45378; principal; 2025-04-26 08:15)
DX: Z12.11 Encounter for screening for malignant neoplasm of colon (principal); K21.9 Gastro-esophageal reflux disease without esophagitis; E11.9 Type 2 diabetes mellitus without complications; K57.30 Diverticulosis of large intestine without perforation or abscess without bleeding; D12.0 Benign neoplasm of cecum
CPT/HCPCS: 45385; 88305; J2704

== ENCOUNTER 2025-05-11 17:37 | Outpatient (REF) | payer MEDICARE, BC, SELFPAY ==
[2025-05-11 19:31] LABS: ALT 31 U/L (16-63); AST 23 U/L (15-37); Albumin 4.1 g/dL (3.4-5.0); Alkaline Phosphatase 74 U/L (46-116); Anion Gap 12.0 mmol/L (3-11); BUN 15 mg/dL (7-18); Bilirubin, Total 1.0 mg/dL (0.2-1.0); CO2 26.0 mmol/L (21.0-32.0); Calcium 9.2 mg/dL (8.5-10.1); Chloride 104 mmol/L (98-107); Estimated GFR 78.49 (mL/min/1.73m2); Glucose 103 mg/dL (74-106); Potassium 4.4 mmol/L (3.5-5.1); Sodium 142 mmol/L (136-145); Total Protein 6.7 g/dL (6.4-8.2)
[2025-05-11 20:08] LABS: Hemoglobin A1C 6.9 % (<5.7)
[2025-05-12 17:41] LABS: T3, Total 122 ng/dL (97-169)
[2025-05-12 18:51] LABS: PSA, Diagnostic 0.4 ng/mL (<=6.5)
== END 2025-05-11 17:38 | disposition home or self-care (01) ==
LOC: NCHCN 17:37
PROVIDERS: PCP Family Medicine; Visit Provider Family Medicine
DX: E11.9 Type 2 diabetes mellitus without complications (principal); N40.0 Benign prostatic hyperplasia without lower urinary tract symptoms
CPT/HCPCS: 80053; 83036; 84153; 84439; 84480

== ENCOUNTER → 2025-07-19 10:54 | Outpatient (BNVA) | payer MEDICARE, BC, SELFPAY | PROVIDERS: PCP Family Medicine; Referring Provider Family Medicine; Visit Provider Podiatrist | DX: L60.3 Nail dystrophy (principal); B35.1 Tinea unguium; M79.674 Pain in right toe(s); M79.675 Pain in left toe(s); E11.42 Type 2 diabetes mellitus with diabetic polyneuropathy; Z79.4 Long term (current) use of insulin; R09.89 Other specified symptoms and signs involving the circulatory and respiratory systems; R60.0 Localized edema; R20.8 Other disturbances of skin sensation; I83.93 Asymptomatic varicose veins of bilateral lower extremities; R23.4 Changes in skin texture; L60.2 Onychogryphosis; L60.8 Other nail disorders | CPT/HCPCS: 11721 ==

== ENCOUNTER 2025-07-27 08:51 | Outpatient (CLI) | payer MEDICARE, BC, SELFPAY ==
--- NOTE | 2025-07-27 08:45 | RT.EKG_ITS ---
APPROVED REPORT Exam: Resting ECG Reason for Exam: PAF Patient Location: O HR:54 bpm ECG Measurements Heart Rate 54 AXIS MI 191 P 56 QRSd 96 QRS -12 QT 505 T 12 QTc 479 Conclusion Sinus rhythm...normal P axis, V-rate 50- 99 Baseline wander in lead(s) V1
== END 2025-07-27 08:52 | disposition home or self-care (01) ==
LOC: DI.CARD 08:52
PROVIDERS: PCP Family Medicine; Visit Provider Internal Medicine Cardiovascular Disease
DX: I49.1 Atrial premature depolarization (principal); I48.0 Paroxysmal atrial fibrillation; R00.0 Tachycardia, unspecified
CPT/HCPCS: 93010

== ENCOUNTER → 2025-07-27 13:31 | Outpatient (BNVA) | payer MEDICARE, BC, SELFPAY | PROVIDERS: PCP Family Medicine; Referring Provider Family Medicine; Visit Provider Internal Medicine Cardiovascular Disease | DX: I42.9 Cardiomyopathy, unspecified (principal); I48.0 Paroxysmal atrial fibrillation; I49.1 Atrial premature depolarization; R00.0 Tachycardia, unspecified; Z79.01 Long term (current) use of anticoagulants | CPT/HCPCS: 93005; 99214 ==

== ENCOUNTER 2025-08-12 15:48 | Outpatient (REF) | payer MEDICARE, BC, SELFPAY ==
[2025-08-12 19:40] LABS: Microalb ug/mg Crea 216.6 ug/mg Cr
== END 2025-08-12 15:49 | disposition home or self-care (01) ==
LOC: NCHCN 15:48
PROVIDERS: PCP Family Medicine; Visit Provider Family Medicine
DX: E11.9 Type 2 diabetes mellitus without complications (principal)
CPT/HCPCS: 82043; 82570